=== PATIENT | female | born 1980 | race Caucasian/White ===

== ENCOUNTER 2023-04-03 13:11 | Outpatient (OUT) | payer BC, SELFPAY ==
--- NOTE | 2023-04-03 | XR_ITS ---
[address] [address] Patient Name: DELILAH MANCUSO MRN: [id number] date: 1980 Sex: F Assigned Patient Location: [facility] Current Patient Location: [facility] Accession/Order Number: [id number] Exam Date: 04/03/2023 13:25 Report Date: 04/03/2023 22:23 At the request of: DANIE AYERS Procedure: XR foot RT min 3V PROCEDURE: XR ankle RT min 3V, XR foot RT min 3V COMPARISON: 04/03/2023 HISTORY: RIGHT ANKLE PAIN FINDINGS: BONES:Mild hallux valgus. No acute fracture or dislocation. Mild enthesopathic spurring calcaneus. Partial pes planus. Plantar rotation of the talus SOFT TISSUES:Negative. No visible soft tissue swelling. EFFUSION:None visible. OTHER: Negative. XR/XR foot RT min 3V IMPRESSION: Degenerative changes with partial pes planus Electronically authenticated by: KARTIK LOPEZ Date: 04/03/2023 22:23
--- NOTE | 2023-04-03 | XR_ITS ---
[address] [address] Patient Name: DELILAH MANCUSO MRN: [id number] date: 1980 Sex: F Assigned Patient Location: [facility] Current Patient Location: [facility] Accession/Order Number: [id number] Exam Date: 04/03/2023 13:25 Report Date: 04/03/2023 22:23 At the request of: DANIE AYERS Procedure: XR ankle RT min 3V PROCEDURE: XR ankle RT min 3V, XR foot RT min 3V COMPARISON: 04/03/2023 HISTORY: RIGHT ANKLE PAIN FINDINGS: BONES:Mild hallux valgus. No acute fracture or dislocation. Mild enthesopathic spurring calcaneus. Partial pes planus. Plantar rotation of the talus SOFT TISSUES:Negative. No visible soft tissue swelling. EFFUSION:None visible. OTHER: Negative. XR/XR ankle RT min 3V IMPRESSION: Degenerative changes with partial pes planus Electronically authenticated by: KARTIK LOPEZ Date: 04/03/2023 22:23
== END 2023-04-03 13:12 | disposition home or self-care (01) ==
LOC: RAD 13:12
PROVIDERS: Visit Provider Podiatrist Foot & Ankle Surgery
DX: M25.571 Pain in right ankle and joints of right foot (principal); M79.671 Pain in right foot
CPT/HCPCS: 73610; 73630

== ENCOUNTER 2023-05-29 17:01 | Outpatient (OUT) | payer BC, SELFPAY ==
--- NOTE | 2023-05-29 | XR_ITS ---
The [address] [address] Patient Name: DELILAH MANCUSO MRN: [id number] date: 1980 Sex: F Assigned Patient Location: [facility] Current Patient Location: [facility] Accession/Order Number: [id number] Exam Date: 05/29/2023 13:35 Report Date: 05/29/2023 15:07 At the request of: DANIE AYERS Procedure: XR foot RT min 3V EXAM: XR ankle RT min 3V, XR foot RT min 3V - 05/29/2023 HISTORY: RIGHT ANKLE PAIN COMPARISON STUDY: Right ankle and right foot 04/03/2023. FINDINGS: Right ankle: AP, oblique and lateral views for 3 views obtained. XR/XR foot RT min 3V IMPRESSION: 1. Similar hypertrophic osseous change presumably related to remote trauma associated with the medial malleolus. The alignment is intact. 2. Mild multifocal arthritic changes involving tibiotalar and talonavicular articulations noted. Small calcaneal enthesophytes are identified. 3. No acute fracture or dislocation is noted. Right foot: Frontal, oblique and lateral views for 3 views obtained. IMPRESSION: 1. Stable hallux valgus deformity, bunion formation and arthritic changes of the first MTP articulation. 2. Pes planus deformity is noted. 3. No acute fracture or dislocation. Electronically authenticated by: CIELO DICKEY Date: 05/29/2023 15:07
--- NOTE | 2023-05-29 | XR_ITS ---
The [address] [address] Patient Name: DELILAH MANCUSO MRN: [id number] date: 1980 Sex: F Assigned Patient Location: [facility] Current Patient Location: [facility] Accession/Order Number: [id number] Exam Date: 05/29/2023 13:35 Report Date: 05/29/2023 15:07 At the request of: DANIE AYERS Procedure: XR ankle RT min 3V EXAM: XR ankle RT min 3V, XR foot RT min 3V - 05/29/2023 HISTORY: RIGHT ANKLE PAIN COMPARISON STUDY: Right ankle and right foot 04/03/2023. FINDINGS: Right ankle: AP, oblique and lateral views for 3 views obtained. XR/XR ankle RT min 3V IMPRESSION: 1. Similar hypertrophic osseous change presumably related to remote trauma associated with the medial malleolus. The alignment is intact. 2. Mild multifocal arthritic changes involving tibiotalar and talonavicular articulations noted. Small calcaneal enthesophytes are identified. 3. No acute fracture or dislocation is noted. Right foot: Frontal, oblique and lateral views for 3 views obtained. IMPRESSION: 1. Stable hallux valgus deformity, bunion formation and arthritic changes of the first MTP articulation. 2. Pes planus deformity is noted. 3. No acute fracture or dislocation. Electronically authenticated by: CIELO DICKEY Date: 05/29/2023 15:07
== END 2023-05-29 17:02 | disposition home or self-care (01) ==
LOC: RAD 17:01
PROVIDERS: Visit Provider Podiatrist Foot & Ankle Surgery
DX: M25.571 Pain in right ankle and joints of right foot (principal); M79.671 Pain in right foot; M20.11 Hallux valgus (acquired), right foot; M21.41 Flat foot [pes planus] (acquired), right foot
CPT/HCPCS: 73610; 73630

== ENCOUNTER 2023-06-12 09:57 | Outpatient (OUT) | payer BC, SELFPAY ==
--- NOTE | 2023-06-12 10:07 | ECG_ITS ---
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
--- NOTE | 2023-06-12 10:51 | P.GSHP_ITS ---
History of Present Illness History of Present Illness Chief complaint: valgus deformity right ankle Narrative: Patient presents for preadmission testing. Please see HPI from Dr. Walker dated 05/29/2023. Review of Systems ROS Narrative Please see ROS from Dr. Walker dated 05/29/2023. [facility] Medical History (Updated 06/12/23 @ 10:26 by Alyssia Goetz NP) Acquired valgus deformity of right ankle ?M21.071 - Valgus deformity, not elsewhere classified, right ankle (ICD-10) Acquired varus deformity of right ankle ?M21.171 - Varus deformity, not elsewhere classified, right ankle (ICD-10) Anemia ?D64.9 - Anemia, unspecified (ICD-10) Ankle contracture ?M24.573 - Contracture, unspecified ankle (ICD-10) Ankle pain ?M25.579 - Pain in unspecified ankle and joints of unspecified foot (ICD-10) COVID-19 ?U07.1 - COVID-19 (ICD-10) Diabetes ?E11.9 - Type 2 diabetes mellitus without complications (ICD-10) Foot pain ?M79.673 - Pain in unspecified foot (ICD-10) Hypertension ?I10 - Essential (primary) hypertension (ICD-10) Palpitations ?R00.2 - Palpitations (ICD-10) Pneumonia ?J18.9 - Pneumonia, unspecified organism (ICD-10) Posterior tibial tendinitis ?M76.829 - Posterior tibial tendinitis, unspecified leg (ICD-10) Seasonal allergies ?J30.2 - Other seasonal allergic rhinitis (ICD-10) Surgical History (Updated 06/12/23 @ 10:26 by Alyssia Goetz NP) History of hysterectomy ?Z90.710 - Acquired absence of both cervix and uterus (ICD-10) Family History (Updated 06/12/23 @ 10:26 by Alyssia Goetz NP) Other Family history of DVT Family history of breast cancer Family history of colon cancer Family history of diabetes mellitus Family history of hypertension Family history of myocardial infarction Family history of seizures Social History (Updated 06/12/23 @ 10:21 by Alyssia Goetz NP) Within the past year, how often did you have a drink containing alcohol: monthly or less Smoking status: Never smoker Non-prescribed substance use: denies use 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 Highest level of school completed/degree received: Master's degree Meds Home Medications and Allergies Home Medications Medication Instructions Recorded Confirmed Type empagliflozin 10 mg tablet 10 mg PO DAILY 06/12/23 06/12/23 History (Jardiance) lisinopril 20 mg tablet 20 mg PO DAILY 06/12/23 06/12/23 History loratadine 10 mg tablet (Claritin) 10 mg PO DAILY 06/12/23 06/12/23 History metformin 1,000 mg tablet 1,000 mg PO BID 06/12/23 06/12/23 History multivitamin (Daily Multi-Vitamin 1 tab PO DAILY 06/12/23 06/12/23 History tablet) Allergies Allergy/AdvReac Type Severity Reaction Status Date / Time amoxicillin Allergy Rash Verified 06/12/23 10:18 chlorine Allergy SOB Uncoded 06/12/23 10:18 levender oil Allergy SOB Uncoded 06/12/23 10:18 Exam Narrative Exam Narrative: Constitutional: Awake, alert, comfortable, well-appearing, nontoxic, interactive, vital signs as charted Head: Normocephalic, atraumatic Neck: Supple, normal appearance, normal range of motion, no meningeal signs, no lymphadenopathy Respiratory: No respiratory distress, breath sounds clear Cardiovascular: Regular rate and rhythm, strong and regular heart tones Psychiatric: Oriented ?3, normal affect Assessment and Plan Assessment and Plan (1) Acquired valgus deformity of right ankle: (2) Acquired varus deformity of right ankle: (3) Ankle contracture: (4) Ankle pain: (5) Foot pain: (6) Posterior tibial tendinitis: Plan Right foot reconstruction with osteotomies, soft tissue balancing, and bone graft as needed scheduled with Dr. Walker 06/27/2023.
[2023-06-12 10:53] LABS: Basophils Percent Auto 0.4 % (0.2-2.0); Eosinophils Absolute Auto 0.1 10^3/uL (0.0-0.7); Eosinophils Percent Auto 0.9 % (0.9-7.0); Hematocrit 41.8 % (36.0-48.0); Hemoglobin 13.8 g/dL (12.0-16.0); Immature Granulocytes Abs Auto 0.02 10^3/uL (0.00-0.03); Immature Granulocytes Pct Auto 0.2 % (0.0-0.5); Lymphocytes Absolute Auto 2.9 10^3/uL (1.2-3.8); Lymphocytes Percent Auto 29.6 % (20.5-60.0); Mean Corpuscular Volume 87.8 fL (81.0-99.0); Mean Platelet Volume 9.4 fL (9.5-13.5); Monocytes Absolute Auto 0.5 10^3/uL (0.3-0.8); Monocytes Percent Auto 4.8 % (1.7-12.0); Neutrophils Absolute Auto 6.4 10^3/uL (1.4-6.5); Neutrophils Percent Auto 64.1 % (43.0-75.0); Platelet Count 301 10^3/uL (150-450); Red Blood Count 4.76 10^6/uL (4.20-5.40); White Blood Count 9.9 10^3/uL (4.0-11.0)
[2023-06-12 10:59] LABS: Anion Gap 14.3; BUN Creatinine Ratio 22.4; Calcium 8.9 mg/dL (8.5-10.1); Carbon Dioxide 24.8 mmol/L (21.0-32.0); Chloride 102 mmol/L (98-107); Estimated GFR (African America >60 (>=60); Estimated GFR (Non-African Ame >60 (>=60); Glucose 140 mg/dL (74-106); Potassium 4.1 mmol/L (3.5-5.1); Sodium 137 mmol/L (136-145)
== END 2023-06-12 09:58 | disposition home or self-care (01) ==
LOC: PST 10:01
PROVIDERS: Nurse Practitioner; Visit Provider Podiatrist Foot & Ankle Surgery
DX: Z01.812 Encounter for preprocedural laboratory examination (principal); Z01.810 Encounter for preprocedural cardiovascular examination; M21.071 Valgus deformity, not elsewhere classified, right ankle; M21.171 Varus deformity, not elsewhere classified, right ankle
CPT/HCPCS: 36415; 80048; 85025; 93005; G0463

== ENCOUNTER 2023-06-27 06:06 | Day surgery (SDC) | payer BC, SELFPAY ==
[2023-06-12 10:49] VITALS: BP 140/83; PULSE 87; RESP 18; TEMP 36.6; O2SAT 97; BMI 41.3
[2023-06-27] VITALS (12 sets, daily range): BP systolic 83–140; BP diastolic 52–96; PULSE 90–109; RESP 13–20; TEMP 36.4–36.5; O2SAT 90–98; BMI 40.0
--- NOTE | 2023-06-27 | FL_ITS ---
[address] [address] Patient Name: DELILHA MANCUSO MRN: [id number] date: 1980 Sex: F Assigned Patient Location: [facility] Current Patient Location: [facility] Accession/Order Number: [id number] Exam Date: 06/27/2023 08:16 Report Date: 06/28/2023 14:46 At the request of: DANIE AYERS Procedure: FL fluoroscopy <1hr NON-READ EXAM: FL fluoroscopy <1hr NON-READ HISTORY: TECHNIQUE: FINDINGS: Please see Operative Report. Electronically authenticated by: RADIOLOGIST NO Date: 06/28/2023 14:46
[2023-06-27 06:28] LABS: Basophils Percent Auto 0.2 % (0.2-2.0); Eosinophils Percent Auto 0.3 % (0.9-7.0); Hematocrit 40.7 % (36.0-48.0); Hemoglobin 13.5 g/dL (12.0-16.0); Immature Granulocytes Abs Auto 0.02 10^3/uL (0.00-0.03); Immature Granulocytes Pct Auto 0.2 % (0.0-0.5); Lymphocytes Absolute Auto 1.6 10^3/uL (1.2-3.8); Lymphocytes Percent Auto 16.3 % (20.5-60.0); Mean Corpuscular HGB Conc 33.2 g/dL (29.9-35.2); Mean Corpuscular Hemoglobin 28.7 pg (26.7-34.0); Mean Corpuscular Volume 86.4 fL (81.0-99.0); Mean Platelet Volume 9.3 fL (9.5-13.5); Monocytes Absolute Auto 0.9 10^3/uL (0.3-0.8); Monocytes Percent Auto 9.3 % (1.7-12.0); Neutrophils Absolute Auto 7.2 10^3/uL (1.4-6.5); Neutrophils Percent Auto 73.7 % (43.0-75.0); Platelet Count 261 10^3/uL (150-450); Red Blood Count 4.71 10^6/uL (4.20-5.40); Red Cell Distribution Width 13.1 % (11.0-15.0); White Blood Count 9.8 10^3/uL (4.0-11.0)
[2023-06-27 06:40] LABS: Glucometer 153 mg/dL (74-106)
[2023-06-27] MEDS: LACTATED RINGER'S SOLUTION 1,000 ML 50 ML IV ×2 (06:48→08:47)
[2023-06-27] MEDS: CLINDAMYCIN PHOSPHATE/D5W 900 MG/50 ML PIGGYBACK 100 MG IV (07:34)
--- NOTE | 2023-06-27 07:46 | PC.NURSE ---
07- Final timeout completed. Patient placed on back. O2 cannula applied at 2l/min via nc and patient placed on monitor. 07- Right leg draped in sterile technique per Dr. Humphreys. Right saphenous block initiated. 0725- Saphenous block completed. 0726-Patient positioned on left hip. Sterile technique maintained to right leg. Right popliteal block initiated. 0730- Popliteal block completed. Patient tolerated it well. See posted vital signs.
--- NOTE | 2023-06-27 10:03 | P.ORON_ITS ---
Brief Operative Note Date of procedure: 06/27/23 Pre-op diagnosis: right posterior tibial tendon dysfunction, hindfoot valgus, forefoot varus Post-op diagnosis: other (right posterior tibial tendon dysfunction, hindfoot valgus, forefoot varus and equinus contracture) Procedure: PROCEDURES PERFORMED: right Orozco and medial displacement calcaneal osteotomies, cotton osteotomy, Kidner posterior tibial tendon advancement with tendon repair and excision of accessory ossicle, tendo Achilles lengthening, application of short leg splint and intraoperative fluoroscopy examination INTRAOPERATIVE FINDINGS: equinus contracture noted with the knee flexed and extended. hindfoot valgus and forefoot varus were flexible and associated joints had full range of motion. Posterior tibial tendon with intratendinous degeneration with chronic tears and accessory ossicle within the tendon. Navicular tuberosity was enlarged. Bone quality was within normal limits given patient's age and gender PROCEDURES IN DETAIL: Patient was identified in pre op and consent was reviewed. Correct side and site were identified and marked. Pre-op antibiotics were started. Patient was brought to OR suite and place on table in a supine position. General anesthesia was administered. Tourniquet applied. Operative extremity was prepped and draped in usual sterile fashion. Formal time-out was performed and the foot/ankle were exsanguinated and tourniquet inflated. Three stab incisions were placed over the mid substance of the Achilles tendon releasing the lateral half in the most proximal and distal stab incisions and medial half in the Central stab incision. Ankle joint dorsiflexion improved to ten degrees past neutral Fluoroscopy was used to identify the calcaneal cuboid joint and associated anatomy to help plan the incision and placement of the osteotomy. An oblique incision was placed over the peroneal tendons comminution sharp blunt dissection gained access to the peroneal tendons which were retracted out of the way. Dissection was performed to expose the sinus tarsi and the calcaneocuboid joint. Periosteum was reflected from the osteotomy site and retractors were used to help plan the osteotomy with the aid of fluoroscopy. A K wire was placed into the calcaneal cuboid joint. A vertical osteotomy was placed in the anterior portion of the calcaneus from lateral to medial between the anterior and middle STJ facets. The osteotomy was performed with a sagittal saw then a Hintermann distractor was used to distract the osteotomy while an osteotome was used to complete the osteotomy medially. Under fluoroscopy, the osteotomy was distracted allowing deformity to be fully corrected. Trial implants were used to determine the proper size. Then a 8 mm Orozco wedge was placed and distractor was removed. Surgical site was irrigated with copious sterile saline. C-arm was used to identify safe incision placement over the lateral calcaneus anterior to the Achilles and plantar fascial attachments. Sharp and blunt dissection to the lateral calcaneus was performed. Sural nerve was not visualized but protected. A saw was used to create an osteotomy in line with the incision and the osteotomy was finished with an osteotome on medial cortex. A lamina internet retailer was placed inside the osteotomy to stretch soft tissues. A 2 cm incision was placed over the posterior aspect of the calcaneus and two guidewires were drilled into the tuberosity but not across the osteotomy. The lamina internet retailer was removed and with the foot plantarflexed and the knee bent the tuberosity was translated medially. I held the tuberosity in the corrected position while my psychologist research assistant advanced the previously placed guidewires. Fluoroscopic guidance was then checked to ensure proper placement of the guidewires. Two 5.5mm headless compression screws were place over the wires. Guide wires were then removed. A shelf of overhanging bone at the osteotomy site was smoothed with a rongeur and rasp. hindfoot valgus was now produced as well as talar navicular joint under coverage however forefoot varus persisted Fluoroscopy was used to identify the medial cuneiform. A longitudinal incision medial to the extensor hallucis longus tendon was performed. Combination sharp and blunt dissection gained access to the midportion of the medial cuneiform. Care was taken to identify the proximal and distal articular surfaces. A saw was used to perform an osteotomy from dorsal to plantar. K wires were placed on each side and the osteotomy in a distractor was placed over the K wires. Distraction was performed until forefoot varus and reduced. The amount of distracted was measured with ruler and trials for Cotton wedges. A 7 mm Cotton wedge was placed into the osteotomy. Distractor and K wires were removed after confirmation of wedge placement on fluoroscopy. Incision was placed over the tarsal tunnel from the medial malleolus to the base of the medial cuneiform. Sharp and blunt dissection with all bleeders being coagulated gained access to the posterior tibial tendon. The posterior tibial tendon was detached from its attachment on the navicular. All nonviable or questionable tissue was excised for full tendon debridement this debridement included excision of an accessory ossicle which is passed the back table and sent as specimen. The tendon was then repaired and tubularized with a whipstitch and sized. A sagittal saw was used to remove any excess bone of the navicular tuberosity. Two 3.3 mm suture anchors were placed accordingly into the navicular. the sutures from the anchors were then used to reapproximate the posterior tibial tendon to its insertion on the navicular under slightly additional tension then physiologic. Plantar soft tissue attachments were preserved. the sutures were then tied and cut after fixation strength was tested. Surgical site was irrigated with copious sterile saline and the incision was closed in layers. A dry sterile dressing consisting of Xeroform on the incisions followed by 4 x 4 gauze, ABDs, and Kerlix were applied. Multiple layers of cast padding were then applied to ensure all bony prominences were well-padded. A plaster posterior splint was then applied which was held in place by Deuce wraps. Capillary refill time to all digits was evaluated and had appropriate response. POSTOPERATIVE PLAN: Discharge home under family's care Post op instructions provided verbally and written prescription(s) were placed in chart NWB operative foot/ankle x6 wks Follow-up in 1 week Implants: Medline 5.5 mm screws (x2) & suture anchors 3.3 mm (x2); [id number] Ernesto & Deshawn mock Anesthesia: regional and General-LMA Surgeon: Nahid Walker Sole Leather Cutting Machine Operator: Blue Lopez Estimated blood loss (mL): 10 Pathology: other (Navicular tuberosity & accessary ossicle) Condition: stable Disposition: PACU Preoperative Details Reason for procedure: patient is a 43-year-old female with worsening pain and dysfunction associated with her right foot for the last seven years. She attempted nonsurgical treatment with physical therapy, bracing, cam boot, shoe and activity modification as well as NSAIDs. Despite nonsurgical treatment over the last year her pain is likely gotten worse. Discussed surgical options and the potential risks and benefits associated. Patient elected to undergo right foot reconstruction
--- NOTE | 2023-06-27 10:38 | XR_ITS ---
The [address] [address] Patient Name: DELILAH MANCUSO MRN: [id number] date: 1980 Sex: F Assigned Patient Location: [facility] Current Patient Location: Accession/Order Number: [id number] Exam Date: 06/27/2023 10:41 Report Date: 06/28/2023 07:03 At the request of: RANDELL CARR Procedure: XR foot RT min 3V PROCEDURE: XR foot RT min 3V HISTORY: postop xr pacu COMPARISON: XR foot right 05/29/2023 FINDINGS: BONES:Anterior and posterior calcaneal osteotomy and repair. Osteotomy and wedge placement within the medial cuneiform. No appreciable hardware fracture or bone fracture. SOFT TISSUES:Expected postsurgical findings. Images were obtained to cast material. EFFUSION:None visible. OTHER: Negative. XR/XR foot RT min 3V IMPRESSION: 1. Postoperative changes. No suspicious findings. Electronically authenticated by: MILES WILKINS Date: 06/28/2023 07:03
[2023-06-27 10:54] LABS: Glucometer 237 mg/dL (74-106)
[2023-06-27] MEDS: PROMETHAZINE HCL 25 MG/ML VIAL 12.5 MG IV (11:25)
--- NOTE | 2023-06-27 11:39 | PC.NURSE ---
PATIENT WAS NAUSEATED UPON ARRIVAL TO POST OP 2 DR MONTILLA GAVE IV ORDER FOR 12.5 MG PHENERGAN AND STATED IT WAS OK TO MOVE INTO PHASE 2 AND ADMINISTER NAUSEA MEDICATION. AT THIS TIME PATIENT IS RESTING COMFORTABLE AND DENIES NAUSEA
--- NOTE | 2023-06-27 12:28 | PC.NURSE ---
pATIENT WAS UP AND URINATED AT THIS TIME
== END 2023-06-27 13:05 | disposition home or self-care (01) ==
PROVIDERS: Visit Provider Podiatrist Foot & Ankle Surgery
PROC: (CPT 27691; principal; 2023-06-27 07:30)
DX: M21.071 Valgus deformity, not elsewhere classified, right ankle (principal); M21.171 Varus deformity, not elsewhere classified, right ankle; E11.9 Type 2 diabetes mellitus without complications; D64.9 Anemia, unspecified; I10 Essential (primary) hypertension; Z87.01 Personal history of pneumonia (recurrent); Z86.16 Personal history of COVID-19; Z90.710 Acquired absence of both cervix and uterus; Z79.84 Long term (current) use of oral hypoglycemic drugs; E78.5 Hyperlipidemia, unspecified; M24.571 Contracture, right ankle; M76.821 Posterior tibial tendinitis, right leg; S86.111S Strain of other muscle(s) and tendon(s) of posterior muscle group at lower leg level, right leg, sequela; M66.871 Spontaneous rupture of other tendons, right ankle and foot
CPT/HCPCS: 27691; 28300; 28304; 36415; 64445; 64450; 73630; 76000; 76942; 82948; 85025; 88304; 88311; C1713; J1170; J2704

== ENCOUNTER 2023-07-17 10:59 | Outpatient (OUT) | payer BC, SELFPAY ==
--- NOTE | 2023-07-17 | XR_ITS ---
The [address] [address] Patient Name: DELILAH MANCUSO MRN: [id number] date: 1980 Sex: F Assigned Patient Location: [facility] Current Patient Location: Accession/Order Number: [id number] Exam Date: 07/17/2023 11:01 Report Date: 07/19/2023 10:25 At the request of: DANIE AYERS Procedure: XR foot RT min 3V PROCEDURE: XR foot RT min 3V HISTORY: RIGHT FOOT PAIN COMPARISON: XR foot right 06/27/2023 FINDINGS: BONES:Anterior and posterior calcaneal osteotomy and repair. Osteotomy and wedge placement within the medial cuneiform. No hardware fracture or loosening. No bone fracture dislocation. SOFT TISSUES:Mild soft tissue swelling. Cast material has been removed. EFFUSION:None visible. OTHER: Negative. XR/XR foot RT min 3V IMPRESSION: 1. Stable surgical changes without evidence of hardware failure or change in alignment. Electronically authenticated by: MILES WILKINS Date: 07/19/2023 10:25
== END 2023-07-17 11:00 | disposition home or self-care (01) ==
LOC: RAD 11:00
PROVIDERS: Visit Provider Podiatrist Foot & Ankle Surgery
DX: M79.671 Pain in right foot (principal); M25.474 Effusion, right foot
CPT/HCPCS: 73630

== ENCOUNTER 2023-07-26 22:21 | Emergency (ER) | payer BC, SELFPAY ==
[2023-07-26 22:26] VITALS: BP 153/93; PULSE 106; RESP 18; TEMP 37; O2SAT 98; BMI 38.9
--- NOTE | 2023-07-26 22:51 | ED_ITS ---
HPI - Skin/Abscess/Foreign Bdy General Chief complaint: Skin/Abscess/Foreign Body Stated complaint: post op complication Time Seen by Provider: 07/26/23 22:33 Source: patient Mode of arrival: Wheelchair Limitations: no limitations History of Present Illness HPI narrative: about one month ago surgery to right ankle and foot/heel. States was seen by Podiatry this past week and placed on Keflex. Has open wound at heel that she is concerned about. States the wound was black and now it is no longer black. Has pain but not increasing. States there is some drainage. No fever or swelling Related Data Home Medications Medication Instructions Recorded Confirmed empagliflozin 10 mg tablet 10 mg PO DAILY 06/12/23 06/27/23 (Jardiance) lisinopril 20 mg tablet 20 mg PO DAILY 06/12/23 06/27/23 loratadine 10 mg tablet (Claritin) 10 mg PO DAILY 06/12/23 06/27/23 metformin 1,000 mg tablet 1,000 mg PO BID 06/12/23 06/27/23 multivitamin (Daily Multi-Vitamin 1 tab PO DAILY 06/12/23 06/27/23 tablet) Previous Rx's Medication Instructions Recorded aspirin 81 mg tablet,delayed 81 mg PO BID 30 days #60 tabs 06/27/23 release (Adult Low Dose Aspirin) cholecalciferol (vitamin D3) 125 125 mcg PO DAILY 90 days #90 caps 06/27/23 mcg (5,000 unit) capsule doxycycline hyclate 50 mg capsule 50 mg PO BID 7 days #14 caps 06/27/23 ondansetron 4 mg disintegrating 4 mg PO Q8H PRN nausea and 06/27/23 tablet vomiting 5 days #15 tabs oxycodone-acetaminophen 5 mg-325 1 tab PO Q6H PRN pain 7 days #28 06/27/23 mg tablet (Percocet) tabs sennosides 8.6 mg tablet (Senna 8.6 mg PO DAILY PRN constipation 7 06/27/23 Laxative) days #7 tabs tizanidine 2 mg tablet 2 mg PO TID PRN muscle spasticity 06/27/23 7 days #21 tabs Allergies Allergy/AdvReac Type Severity Reaction Status Date / Time amoxicillin Allergy Rash Verified 06/12/23 10:18 chlorine Allergy SOB Uncoded 10/25/23 10:18 levender oil Allergy SOB Uncoded 06/12/23 10:18 Review of Systems ROS Status of ROS 10 or more systems reviewed and unremark able except as noted in history and below [facility] Medical History (Updated 07/26/23 @ 23:42 by Yong Lira MD) Anemia ?D64.9 - Anemia, unspecified (ICD-10) COVID-19 ?U07.1 - COVID-19 (ICD-10) Pneumonia ?J18.9 - Pneumonia, unspecified organism (ICD-10) Seasonal allergies ?J30.2 - Other seasonal allergic rhinitis (ICD-10) Hypertension ?I10 - Essential (primary) hypertension (ICD-10) Palpitations ?R00.2 - Palpitations (ICD-10) Diabetes ?E11.9 - Type 2 diabetes mellitus without complications (ICD-10) Foot pain ?M79.673 - Pain in unspecified foot (ICD-10) Posterior tibial tendinitis ?M76.829 - Posterior tibial tendinitis, unspecified leg (ICD-10) Ankle contracture ?M24.573 - Contracture, unspecified ankle (ICD-10) Ankle pain ?M25.579 - Pain in unspecified ankle and joints of unspecified foot (ICD-10) Acquired varus deformity of right ankle ?M21.171 - Varus deformity, not elsewhere classified, right ankle (ICD-10) Acquired valgus deformity of right ankle ?M21.071 - Valgus deformity, not elsewhere classified, right ankle (ICD-10) Surgical History (Updated 06/12/23 @ 10:26 by Alyssia Goetz NP) History of hysterectomy ?Z90.710 - Acquired absence of both cervix and uterus (ICD-10) Family History (Updated 06/12/23 @ 10:26 by Alyssia Goetz NP) Other Family history of DVT Family history of breast cancer Family history of colon cancer Family history of diabetes mellitus Family history of hypertension Family history of myocardial infarction Family history of seizures Social History (Updated 06/12/23 @ 10:21 by Alyssia Goetz NP) Within the past year, how often did you have a drink containing alcohol: monthly or less Smoking status: Never smoker Non-prescribed substance use: denies use 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 Highest level of school completed/degree received: Master's degree Exam Constitutional Vital Signs, click to edit/add: Last Vital Signs Temp 98.6 F 07/26/23 22:26 Pulse 106 H 07/26/23 22:26 Resp 18 07/26/23 22:26 BP 153/93 H 07/26/23 22:26 Pulse Ox 98 07/26/23 22:26 O2 Del Method Room Air 07/26/23 22:26 Common normals: no apparent distress, oriented x3, healthy appearing, alert and well nourished Eye Common normals: EOMs intact bilaterally and conjunctivae normal Respiratory Common normals: normal respiratory effort, no retractions, no use of accessory muscles and clear to auscultation bilaterally Cardio Common normals: regular rate, regular rhythm, S1 normal heart sound and S2 normal heart sound Extremity Other: right foot with a couple incisions that are dry and closed. the posterior aspect of the heel has an open incision. On inspection there is no drainage. Tissue appears normal and not inflamed. mild tenderness. No erythema or swelling. Neuro Common normals: oriented x3, CN's II-XII intact bilaterally, moves all extremities and no focal motor deficits Psych Appearance: grossly normal Course Vital Signs Vital signs: Vital Signs Temperature 98.6 F 07/26/23 22:26 Pulse Rate 106 H 07/26/23 22:26 Respiratory Rate 18 07/26/23 22:26 Blood Pressure 153/93 H 07/26/23 22:26 Pulse Oximetry 98 07/26/23 22:26 Oxygen Delivery Method Room Air 07/26/23 22:26 Temperature 98.6 F 07/26/23 22:26 Pulse Rate 106 H 07/26/23 22:26 Respiratory Rate 18 07/26/23 22:26 Blood Pressure 153/93 H 07/26/23 22:26 Pulse Oximetry 98 07/26/23 22:26 Oxygen Delivery Method Room Air 07/26/23 22:26 MDM - Skin/Abscess/Foreign Bdy MDM Narrative Medical decision making narrative: patient is one month s/p surgery right ankle and foot. complicated by post op infection and started on Keflex by her surgeon this past week. Patient concerned about the foot because she is diabetic. The open wound of her heel does not look infected at this time. There is no drainage while here in the department. Tissue appears viable. labs with normal WBC and CRP. Mild elevation of sed rate. She is afebrile. Patient reassured and advised to follow up with her surgeon next week as planned Lab Data Labs: Lab Results 07/26/23 Range/Units 22:54 WBC 9.8 (4.0-11.0) 10^3/uL RBC 4.76 (4.20-5.40) 10^6/uL Hgb 13.8 (12.0-16.0) g/dL Hct 42.6 (36.0-48.0) % MCV 89.5 (81.0-99.0) fL MCH 29.0 (26.7-34.0) pg MCHC 32.4 (29.9-35.2) g/dL RDW 13.6 (11.0-15.0) % Plt Count 311 (150-450) 10^3/uL MPV 9.4 L (9.5-13.5) fL Neut % (Auto) 52.7 (43.0-75.0) % Lymph % (Auto) 36.7 (20.5-60.0) % Hayes % (Auto) 7.7 (1.7-12.0) % Eos % (Auto) 2.5 (0.9-7.0) % Baso % (Auto) 0.3 (0.2-2.0) % Neut # (Auto) 5.2 (1.4-6.5) 10^3/uL Lymph # (Auto) 3.6 (1.2-3.8) 10^3/uL Hayes # (Auto) 0.8 (0.3-0.8) 10^3/uL Eos # (Auto) 0.3 (0.0-0.7) 10^3/uL Baso # (Auto) 0.0 (0.0-0.1) 10^3/uL Abs Immat Gran (auto) 0.01 (0.00-0.03) 10^3/uL Imm/Tot Granulo (auto) 0.1 (0.0-0.5) % ESR 38 H (<=20) mm/hr Sodium 138 (136-145) mmol/L Potassium 4.2 (3.5-5.1) mmol/L Chloride 102 (98-107) mmol/L Carbon Dioxide 24.4 (21.0-32.0) mmol/L Anion Gap 15.8 BUN 11.0 (7.0-18.0) mg/dL Creatinine 0.81 (0.55-1.02) mg/dL Est GFR ( Amer) >60 (>=60) Est GFR (Non-Af Amer) >60 (>=60) BUN/Creatinine Ratio 13.6 Glucose 160 H (74-106) mg/dL Calcium 9.2 (8.5-10.1) mg/dL C-Reactive Protein <0.50 (<=0.50) mg/dL Discharge Plan Discharge Chief Complaint: Skin/Abscess/Foreign Body Clinical Impression: Wound, open, foot Patient Disposition: Home, Self-Care Prescriptions / Home Meds: No Action Jardiance 10 mg tablet 10 mg PO DAILY lisinopril 20 mg tablet 20 mg PO DAILY metformin 1,000 mg tablet 1,000 mg PO BID multivitamin [Daily Multi-Vitamin] Tablet 1 tab PO DAILY loratadine [Claritin] 10 mg tablet 10 mg PO DAILY doxycycline hyclate 50 mg capsule 50 mg PO BID 7 Days Qty: 14 0RF aspirin [Adult Low Dose Aspirin] 81 mg tablet,delayed release (DR/EC) 81 mg PO BID 30 Days Qty: 60 0RF cholecalciferol (vitamin D3) 125 mcg (5,000 unit) capsule 125 mcg PO DAILY 90 Days Qty: 90 0RF oxycodone-acetaminophen [Percocet] 5-325 mg tablet 1 tab PO Q6H PRN (Reason: pain) 7 Days Qty: 28 0RF ondansetron 4 mg tablet,disintegrating 4 mg PO Q8H PRN (Reason: nausea and vomiting) 5 Days Qty: 15 0RF sennosides [Senna Laxative] 8.6 mg tablet 8.6 mg PO DAILY PRN (Reason: constipation) 7 Days Qty: 7 0RF tizanidine 2 mg tablet 2 mg PO TID PRN (Reason: muscle spasticity) 7 Days Qty: 21 0RF Instructions: Acute Wounds (ED) Additional Instructions: follow up with podiatry Saturday as planned Stand Alone Forms: Portal Instructions Referrals: Physician,Non-Staff, MD [Primary Care Provider] - 1 week
[2023-07-26 23:08] LABS: Basophils Percent Auto 0.3 % (0.2-2.0); Eosinophils Percent Auto 2.5 % (0.9-7.0); Hematocrit 42.6 % (36.0-48.0); Hemoglobin 13.8 g/dL (12.0-16.0); Lymphocytes Percent Auto 36.7 % (20.5-60.0); Mean Corpuscular HGB Conc 32.4 g/dL (29.9-35.2); Mean Corpuscular Volume 89.5 fL (81.0-99.0); Mean Platelet Volume 9.4 fL (9.5-13.5); Monocytes Percent Auto 7.7 % (1.7-12.0); Neutrophils Percent Auto 52.7 % (43.0-75.0); Platelet Count 311 10^3/uL (150-450); Red Blood Count 4.76 10^6/uL (4.20-5.40); Red Cell Distribution Width 13.6 % (11.0-15.0); White Blood Count 9.8 10^3/uL (4.0-11.0)
[2023-07-26 23:09] LABS: Eosinophils Absolute Auto 0.3 10^3/uL (0.0-0.7); Immature Granulocytes Abs Auto 0.01 10^3/uL (0.00-0.03); Immature Granulocytes Pct Auto 0.1 % (0.0-0.5); Lymphocytes Absolute Auto 3.6 10^3/uL (1.2-3.8); Monocytes Absolute Auto 0.8 10^3/uL (0.3-0.8); Neutrophils Absolute Auto 5.2 10^3/uL (1.4-6.5)
[2023-07-26 23:12] LABS: Erythrocyte Sedimentation Rate 38 mm/hr (<=20)
[2023-07-26 23:17] LABS: Anion Gap 15.8; BUN Creatinine Ratio 13.6; Calcium 9.2 mg/dL (8.5-10.1); Carbon Dioxide 24.4 mmol/L (21.0-32.0); Chloride 102 mmol/L (98-107); Estimated GFR (African America >60 (>=60); Estimated GFR (Non-African Ame >60 (>=60); Glucose 160 mg/dL (74-106); Potassium 4.2 mmol/L (3.5-5.1); Sodium 138 mmol/L (136-145)
[2023-07-26 23:28] LABS: C Reactive Protein <0.50 mg/dL (<=0.50)
== END 2023-07-27 00:10 | disposition home or self-care (01) ==
PROVIDERS: Emergency Provider Internal Medicine
DX: S91.301A Unspecified open wound, right foot, initial encounter (principal); E11.9 Type 2 diabetes mellitus without complications; I10 Essential (primary) hypertension; Z87.01 Personal history of pneumonia (recurrent); Z86.16 Personal history of COVID-19; Z79.84 Long term (current) use of oral hypoglycemic drugs; Z79.899 Other long term (current) drug therapy; Z98.890 Other specified postprocedural states
CPT/HCPCS: 36415; 80048; 85025; 85652; 86140; 99283

== ENCOUNTER 2023-08-14 10:43 | Outpatient (OUT) | payer BC, SELFPAY ==
--- NOTE | 2023-08-14 | XR_ITS ---
[place] [id number] Patient Name: DELILAH MANCUSO MRN: [id number] date: 1980 Sex: F Assigned Patient Location: [facility] Current Patient Location: [facility] Accession/Order Number: [id number] Exam Date: 08/14/2023 10:50 Report Date: 08/15/2023 22:11 At the request of: DANIE AYERS Procedure: XR foot RT min 3V EXAM: XR foot RT min 3V HISTORY: RIGHT FOOT PAIN COMPARISON: 07/17/2023 FINDINGS/IMPRESSION: 1. No acute fracture or dislocation 2. Osteotomy and screw fixation of the posterior aspect of the calcaneus. Osteotomy and wedge placement of the anterior calcaneus. Osteotomy and wedge placement of the cuboid. No apparent hardware complication. Similar appearance as compared to the prior exam from 07/17/2023. 3. No significant joint degeneration. 4. No ankle joint effusion. Electronically authenticated by: KHALIDA BERNARD Date: 08/15/2023 22:11
== END 2023-08-14 10:44 | disposition home or self-care (01) ==
LOC: RAD 10:43
PROVIDERS: Visit Provider Podiatrist Foot & Ankle Surgery
DX: M25.571 Pain in right ankle and joints of right foot (principal)
CPT/HCPCS: 73630

== ENCOUNTER 2023-08-15 14:14 | Outpatient (OUT) | payer BC, SELFPAY ==
--- OUTSIDE RECORDS SUMMARY | 2023-08-15 14:25 | XMS_ITS | CCD ---
Author Name Unknown Address [id number] [place] [address] Organization [facility] Care Team Providers Care Bowl Turner Name Role Phone BACK, SHYAM Unavailable Unavailable BACK, SHYAM Unavailable Unavailable Back, Shyam Primary Care Provider [phone] Back Shyam RODRIGUEZ Primary Care Provider MD RAMIREZ GRIMALDOIS Emergency Provider MD JÚNIOR VALADEZ Admit Provider MD JÚNIOR VALADEZ Attending Provider Back Shyam RODRIGUEZ Primary Care Provider Back Shyam RODRIGUEZ Primary Care Provider Back Shyam RODRIGUEZ Primary Care Provider Back Shyam RODRIGUEZ Primary Care Provider DANIE AYERS Referring Unavailable BACK, SHYAM Primary Care Unavailable DANIE AYERS Referring Unavailable BACK, SHYAM Primary Care Unavailable BACK, SHYAM Referring Unavailable BACK, SHYAM Primary Care Unavailable DANIE AYERS Referring Unavailable BACK, SHYAM Primary Care Unavailable DANIE AYERS Referring Unavailable BACK, SHYAM Primary Care Unavailable DANIE AYERS Referring Unavailable BACK, SHYAM Primary Care Unavailable DANIE AYERS Referring Unavailable BACK, SHYAM Primary Care Unavailable DANIE AYERS Referring Unavailable BACK, SHYAM Primary Care Unavailable KEO VALDEZ Attending Unavailabl e KEO VALDEZ Referring Unavailabl e BACK, SHYAM Primary Care Unavailable DANIE AYERS Referring Unavailable BACK, SHYAM Primary Care Unavailable BACK, SHYAM Referring Unavailable BACK, SHYAM Primary Care Unavailable DANIE AYERS Referring Unavailable BACK, SHYAM Primary Care Unavailable DANIE AYERS Referring Unavailable BACK, SHYAM Primary Care Unavailable DANIE AYERS Referring Unavailable BACK, SHYAM Primary Care Unavailable DANIE AYERS Referring Unavailable BACK, SHYAM Primary Care Unavailable DANIE AYERS Referring Unavailable BACK, SHYAM Primary Care Unavailable DEBRADANIE CHIU Referring Unavailable BACK, SHYAM Primary Care Unavailable Allergies Allergy Classification Reported Allergen(s) Allergy Type Date of Onset Reaction(s) Facility (20 sources) Amoxicillin Drug Allergy 4 Nausea Only [place], [place] (15 sources) Chlorine Propensity to adverse reactions to drug 3 Hives [place], [place] (11 sources) Lavender Oil Propensity to adverse reactions to drug 1 Shortness Of Breath [facility] Medications Current Medications Medication Drug Class(es) Dates Sig (Normalized) Sig (Original) [id number] 200 actuat albuterol 0.09 mg/actuat metered dose inhaler (15 sources) beta2-Adrenergic Agonist Start: 10-23-2019 take 2 puff(s) by inhalation every six hours as needed for wheezing albuterol sulfate HFA (VENTOLIN HFA) 108 (90 Base) MCG/ACT inhaler Inhale 2 puffs into the lungs every 6 hours as needed for Wheezing 1 Inhaler 3 10/23/2019 Active Start: 10-23-2019 take 2 puff(s) by in halation every six hours as needed for wheezing albuterol sulfate HFA (VENTOLIN HFA) 108 (90 Base) MCG/ACT inhaler Inhale 2 puffs into the lungs every 6 hours as needed for Wheezing 1 Inhaler 3 10/23/2019 Active ascorbic acid 500 mg oral tablet (8 sources) Vitamin C Start: 04-27-2021 take 1 tablet by mouth once daily Ascorbic Acid (Vitamin C) 500 MG Tablet Active 500 MG PO DAILY April 27, 2021 11:59am aspirin 325 mg oral tablet (8 sources) Platelet Aggregation Inhibitor, Nonsteroidal Anti-inflammatory Drug Start: 04-27-2021 take 325 mg by mouth once daily Aspirin Active 325 MG PO DAILY April 27, 2021 11:58am azithromycin 250 mg oral tablet (1 source) Macrolide Antimicrobial Start: 04-14-2021 End: 04-19-2021 azithromycin (ZITHROMAX) 250 MG tablet Indications: Bronchitis Take 1 tablet by mouth See Admin Instructions for 5 days 500mg on day 1 followed by 250mg on days 2 - 5 6 tablet 0 04/14/2021 04/19/2021 Active bisoprolol fumarate 2.5 mg / hydroCHLOROthiazide 6.25 mg oral tablet (14 sources) Thiazide Diuretic, beta-Adrenergic Yandel Start: 10-16-2021 bisoprolol-hydroC HLOROthiazide (ZIAC) 2.5-6.25 MG per tablet Indications: Benign essential HTN TAKE 1 TABLET DAILY 90 tablet 3 10/16/2021 Active Start: 04-17-2021 Bisoprolol/Hyd rochlorothiazide (Bisoprolol-Hctz 2.5-6.25 Mg Tb) 1 EACH Tablet Active 1 TAB PO DAILY April 23, 2021 12:23pm Start: 11-09-2020 bisoprolol-hyd roCHLOROthiazide (ZIAC) 2.5-6.25 MG per tablet Indications: Benign essential HTN TAKE 1 TABLET DAILY 90 tablet 1 11/09/2020 Active Start: 08-17-2019 bisoprolol-hyd rochlorothiazide (ZIAC) 2.5-6.25 MG per tablet Indications: Benign essential HTN TAKE 1 TABLET DAILY 90 tablet 4 08/17/2019 Active cholecalciferol 0.025 mg oral tablet (7 sources) Vitamin D Start: 04-27-2021 take 1 tablet by mouth once daily Cholecalciferol (Vitamin D3) 1,000 UNIT Tablet Active 1000 UNIT PO DAILY April 27, 2021 12:00pm dexamethasone 6 mg oral tablet (7 sources) Corticosteroid Start: 04-27-2021 take 1 tablet by mouth once daily Dexamethasone (Decadron) 6 MG Tablet Active 6 MG PO DAILY 12 21April 27, 2021 11:57am dextromethorphan hydrobromide 15 mg / guaiFENesin 400 mg / pseudoephedrine hydrochloride 60 mg oral tablet (7 sources) alpha-Adrenergic Agonist, Uncompetitive D-qowrij-H-aspartat e Receptor Antagonist, Sigma-1 Agonist Start: 04-23-2021 Guaifenesin/Dm/Pseu doephedrine (Capmist Dm Tablet) 1 EACH Tablet Active 1 TAB PO NEEDED April 23, 2021 12:23pm empagliflozin 10 mg oral tablet (20 sources) Sodium-Glucose Cotransporter 2 Inhibitor Start: 2023 JARDIANCE 10 MG tablet Indications: Uncontrolled type 2 diabetes mellitus with hyperglycemia (HCC) TAKE 1 TABLET DAILY 90 tablet 1 2023 Active Start: 10-29-2022 JARDIANCE 10 M G tablet Indications: Uncontrolled type 2 diabetes mellitus with hyperglycemia (HCC) TAKE 1 TABLET DAILY 90 tablet 1 10/29/2022 Active Start: 05-01-2022 JARDIANCE 10 M G tablet Indications: Uncontrolled type 2 diabetes mellitus with hyperglycemia (HCC) TAKE 1 TABLET DAILY 90 tablet 1 05/01/2022 Active Start: 11-20-2021 take 1 tablet by pam th once daily empagliflozin (JARDIANCE) 10 MG tablet Indications: Uncontrolled type 2 diabetes mellitus with hyperglycemia (HCC) Take 1 tablet by mouth daily 30 tablet 0 11/20/2021 Active Start: 03-27-2021 take 1 tablet by pam th once daily empagliflozin (JARDIANCE) 10 MG tablet Indications: Uncontrolled type 2 diabetes mellitus with hyperglycemia (HCC) Take 1 tablet by mouth daily 30 tablet 5 03/27/2021 Active Ethinyl Estradiol / Ferrous fumarate / Norethindrone (1 source) Estrogen Start: 05-21-2018 MICROGESTIN FE 1.5/30 1.5-30 MG-MCG tablet 1 ml ketorolac tromethamine 15 mg/ml cartridge (3 sources) Nonsteroidal Anti-inflammatory Drug, Cyclooxygenase Inhibitor Start: 01-01-2022 ketorolac (TORADOL) injection 15 mg Start: 01-01-2022 take 1 tablet by pam th every eight hours as needed for pain ketorolac (TORADOL) 10 MG tablet Take 1 tablet by mouth every 8 hours as needed for Pain 15 tablet 0 01/01/2022 Active levoFLOXacin 500 mg oral tablet (7 sources) Quinolone Antimicrobial Start: 04-27-2021 take 1 tablet by mouth once daily Levofloxacin (Levaquin) 500 MG Tablet Active 500 MG PO DAILY 4 April 27, 2021 11:55am lisinopril 20 mg oral tablet (20 sources) Angiotensin Converting Enzyme Inhibitor Start: 04-08-2023 lisinopril (PRINIVIL;ZESTRIL) 20 MG tablet Indications: Benign essential HTN TAKE 1 TABLET DAILY 90 tablet 3 04/08/2023 Active Start: 11-20-2021 take 1 tablet by pam th once daily lisinopril (PRINIVIL;ZESTRIL) 20 MG tablet Indications: Benign essential HTN Take 1 tablet by mouth daily 90 tablet 1 11/20/2021 Active Start: 04-17-2021 lisinopril (CO INIVIL;ZESTRIL) 20 MG tablet Indications: Benign essential HTN TAKE 1 TABLET DAILY 90 tablet 1 04/17/2021 Active Start: 11-09-2020 lisinopril (CO INIVIL;ZESTRIL) 20 MG tablet Indications: Benign essential HTN TAKE 1 TABLET DAILY 90 tablet 1 11/09/2020 Active Start: 08-17-2019 lisinopril (CO INIVIL;ZESTRIL) 20 MG tablet Indications: Benign essential HTN TAKE 1 TABLET DAILY 90 tablet 4 08/17/2019 Active Loratadine (15 sources) Loratadine (CLAR ITIN PO) Take by mouth daily. 0 Active metFORMIN hydrochloride 1000 mg oral tablet (20 sources) Biguanide Start: 11-15-2022 metFORMIN (GLU COPHAGE) 1000 MG tablet Indications: Controlled type 2 diabetes mellitus without complication, without long-term current use of insulin (HCC) TAKE 1 TABLET TWICE A DAY WITH MEALS 180 tablet 1 11/15/2022 Active Start: 05-21-2022 metFORMIN (GLU COPHAGE) 1000 MG tablet Indications: Controlled type 2 diabetes mellitus without complication, without long-term current use of insulin (HCC) TAKE 1 TABLET TWICE A DAY WITH MEALS 180 tablet 1 05/21/2022 Active Start: 11-20-2021 metFORMIN (GLU COPHAGE) 1000 MG tablet Indications: Controlled type 2 diabetes mellitus without complication, without long-term current use of insulin (HCC) TAKE 1 TABLET TWICE A DAY WITH MEALS 180 tablet 1 11/20/2021 Active Start: 05-30-2020 metFORMIN (GLU COPHAGE) 1000 MG tablet Indications: Controlled type 2 diabetes mellitus without complication, without long-term current use of insulin (HCC) TAKE 1 TABLET TWICE A DAY WITH MEALS 180 tablet 1 05/25/2021 Active Start: 11-24-2019 metFORMIN (GLU COPHAGE) 1000 MG tablet Indications: Controlled type 2 diabetes mellitus without complication, without long-term current use of insulin (HCC) TAKE 1 TABLET TWICE A DAY WITH MEALS 180 tablet 1 11/24/2019 Active Multiple Vitamin (MULTI-VITAMIN PO) (15 sources) Multiple Vitamin (MULTI-VITAMIN PO) Take by mouth daily. 0 Active Multivitamin/Iron/Folic Acid (Centrum Complete Multivit Tab) 1 EACH Tablet (7 sources) Start: 04-27-20 take 1 tablet by mouth once daily Multivitamin/Iron/Foli c Acid (Centrum Complete Multivit Tab) 1 EACH Tablet Active 1 EACH PO DAILY April 27, 2021 11:58am ondansetron 4 mg oral tablet (2 sources) Serotonin-3 Receptor Antagonist Start: 01-02-20 End: 01-07-20 take 1 tablet by mouth every eight hours as needed for nausea ondansetron (ZOFRAN) 4 MG tablet Take 1 tablet by mouth every 8 hours as needed for Nausea or Vomiting 12 tablet 0 01/01/2022 01/06/2022 Active Start: 01-01-2022 End: 01-01-2022 ondansetron (ZOFRAN) injecti on 4 mg VITAMIN D PO (1 source) VITAMIN D PO Gus e by mouth 0 Active Completed/Discontinued Medications Medication Drug Class(es) Dates Sig (Normalized) Sig (Original) iopamidol (ISOVUE-370) 76 % injection 75 mL (1 source) Start: 01-01-2022 End: 01-01-2022 iopamidol (ISOVUE-370) 76 % injection 75 mL 50 ml sodium chloride 9 mg/ml injection (2 sources) Start: 04-14-2022 End: 04-14-2022 0.9 % sodium chloride bolus Start: 01-01-2022 End: 01-01-2022 0.9 % sodium chloride bolus Problems Active Problems Problem Classification Problem Date Documented Da te Episodic/Chronic Abdominal pain (1 source) Lower abdominal pain; Translations: [Lower abdominal pain, unspecified] Episodic Allergic reactions (1 source) Eczema of face; Translations: [Eczema of face] 04-09-2012 Chronic Allergic reactions (14 sources) Facial eczema; Translations: [Facial eczema] 04-09-2012 Episodic Cardiac dysrhythmias (1 source) Palpitations; Translations: [Palpitations] Episodic Diabetes mellitus with complications (20 sources) Type II diabetes mellitus uncontrolled; Translations: [Type 2 diabetes mellitus with hyperglycemia] Onset: 12-20-2014 Resolved: 08-23-2022 05-03-2020 Chronic Diabetes mellitus without complication (9 sources) Type 2 diabetes mellitus without complications; Translations: [Type 2 diabetes mellitus] Onset: 12-20-2014 Resolved: 12-22-2015 12-22-2015 Chronic Disorders of lipid metabolism (20 sources) Mixed hyperlipidemia; Translations: [Mixed hyperlipidemia] Onset: 11-19-2013 11-19-2013 Chronic Essential hypertension (20 sources) Essential (primary) hypertension; Translations: [Benign essential hypertension] Onset: 11-20-2011 11-20-2011 Chronic Other connective tissue disease (3 sources) Posterior tibial tendinitis, right leg; Translations: [Posterior tibial tendinitis, right leg] Onset: 03-11-2023 Episodic Other nutritional; endocrine; and metabolic disorders (14 sources) Severe obesity; Translations: [Morbid (severe) obesity due to excess calories] Onset: 05-03-2020 05-03-2020 Chronic Other skin disorders (1 source) Loss of hair; Translations: [Nonscarring hair loss, unspecified] Episodic Residual codes; unclassified (1 source) Edema of foot; Translations: [Localized edema] Episodic Residual codes; unclassified (3 sources) Bilateral lower leg edema; Translations: [Localized edema] Onset: 03-04-2023 03-04-2023 Episodic Syncope (1 source) Vasovagal symptom; Translations: [Syncope and collapse] Episodic Unclassified (2 sources) History of abdominal hysterectomy; Translations: [H/O abdominal hysterectomy] Onset: 01-15-2020 01-18-2020 Viral infection (15 sources) COVID-19; Translations: [Pneumonia due to COVID-19 virus] Episodic Past or Other Problems Problem Classification Problem Date Documented Da te Episodic/Chronic Diabetes mellitus without complication (15 sources) Hyperglycemia; Translations: [Hyperglycemia, unspecified] Onset: 07-28-2013 Resolved: 06-01-2014 06-01-2014 Episodic Immunizations and screening for infectious disease (6 sources) Suspected disease caused by 2019-nCoV; Translations: [Suspected COVID-19 virus infection] Onset: 08-22-2022 Episodic Residual codes; unclassified (13 sources) History of abdominal hysterectomy; Translations: [Acquired absence of both cervix and uterus] Onset: 01-15-2020 01-18-2020 Episodic Results Test Name Value Interpretation Reference Range Facility MRI ANKLE RIGHT WO CONTRASTo n 03-12-2023 MRI ANKLE RIGHT WO CONTRAST HISTORY: Increasing pain along the medial aspect of the right ankle with burning sensations. Evaluate for posterior tibialis tendinitis. MRI ANKLE RIGHT WO CONTRAST: 03/11/2023 11:09 AM EDT COMPARISON: None. TECHNIQUE: Multiplanar, multisequence MRI images of the ankle were obtained without contrast. FINDINGS: LIGAMENTS: The anterior talofibular ligament appears within normal limits. The calcaneofibular ligament, posterior talofibular ligament, and distal tibiofibular ligaments appear within normal limits. The deltoid ligament complex appears within normal limits. TENDONS: There is evidence of severe tendinopathy and a superimposed high-grade, longitudinal split tear involving the posterior tibialis tendon from the level of the distal tibial metadiaphysis to its insertion. This tear spans approximately 9 cm in length. There is a severe tenosynovitis of the posterior tibialis tendon sheath. The other tendons of the ankle appear within normal limits. SINUS TARSI AND TARSAL TUNNEL: No space-occupying mass is seen in the tarsal tunnel or the sinus tarsi. BONES AND JOINTS: The bone marrow signal intensity is age appropriate. No unstable osteochondral defect of the tibiotalar joint is identified. There appear to be mild focal degenerative changes of the anterior aspect of the tibiotalar joint with a 6 mm fragmented osteophyte from the anteroinferior aspect of the tibial plafond as best seen on image 8 of the sagittal T1 sequence. There is a spur along the posteromedial aspect of the medial malleolus adjacent to the posterior tibialis tendon sheath. There appear to be mild degenerative changes of the dorsal aspect of the talonavicular joint. There also appear to be mild degenerative changes of the dorsal aspect of the second tarsometatarsal joint. PLANTAR FASCIA: There is no abnormal thickening or abnormal signal intensity of the plantar fascia and there is no surrounding soft tissue edema to suggest plantar fasciitis. SOFT TISSUES: No significant soft tissue swelling is seen. IMPRESSION: 1. Severe tendinopathy of the majority of the posterior tibialis tendon with a superimposed high-grade, longitudinal split tear of the tendon extending approximately 9 cm in length from the level of the distal tibial metadiaphysis to its insertion. There is an associated severe tenosynovitis of the posterior tibialis tendon sheath. These findings are associated with a large spur along the posteromedial aspect of the medial malleolus. 2. 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 3. Mild osteoarthritis of the talonavicular joint and the second tarsometatarsal joint. 4. No ligament injury is seen. Interpreted by: Lenny Mane MD Signed by: Lenny Mane MD 03/12/23 Final result Normal [facility] Comp Metabolic Profon 2022 Albumin [Mass/Vol] 4.1 g/dL Normal 3.5-5.2 [facility] Comment on above: Performed By: #### Z FAST, CP #### [facility] [address] [place] [address] Agricultural Purchasing Agent: Leonides Brunner MD #### GLYHGB, LIPR #### [address] [id number] Agricultural Purchasing Agent: Virgil Shelton MD Alkaline Phos 76 U/L Normal 35-104 [facility] Comment on above: Performed By: #### Z FAST, CP #### [facility] [address] [place], [place] [phone] Agricultural Purchasing Agent: Leonides Brunner MD #### GLYHGB, LIPR #### [address] [phone] Agricultural Purchasing Agent: Virgil Shelton MD ALT [Catalytic activity/Vol] 22 U/L Normal 5-33 [facility] Comment on above: Performed By: #### Z FAST, CP #### [facility] [address] [place], [place] [id number] Agricultural Purchasing Agent: Leonides Brunner MD #### GLYHGB, LIPR #### [address] [address] Agricultural Purchasing Agent: Virgil Shelton MD Anion gap [Moles/Vol] 10 mmol/L Normal 9-17 [facility] Comment on above: Performed By: #### Z FAST, CP #### [facility] [address] [place] [address] Agricultural Purchasing Agent: Leonides Brunner MD #### GLYHGB, LIPR #### [facility] [address] [place] [address] Agricultural Purchasing Agent: Virgil Shelton MD AST [Catalytic activity/Vol] 14 U/L Normal <32 [facility] Comment on above: Performed By: #### Makayla FAST, CP #### [facility] [address] [place] [address] Agricultural Purchasing Agent: Leonides Brunner MD #### SEAN, LIPR #### [address] [place] [address] [place], [place] [id number] Agricultural Purchasing Agent: Virgil Shelton MD Bilirubin [Mass/Vol] 0.4 mg/dL Normal 0.3-1.2 [facility] Comment on above: Performed By: #### Makayla FAST, CP #### [facility] [address] [place] [address] Agricultural Purchasing Agent: Leonides Brunner MD #### SEAN, LIPR #### [facility] [address] [place] [address] Agricultural Purchasing Agent: Virgil Shelton MD BUN/CRE Ratio 25 High 9-20 [facility] Comment on above: Performed By: #### Makayla FAST, CP #### [facility] [address] [place] [address] Agricultural Purchasing Agent: Leonides Brunner MD #### GLYHGB, LIPR #### [facility] [address] [place] [address] Agricultural Purchasing Agent: Virgil Shelton MD Calcium [Mass/Vol] 9.1 mg/dL Normal 8.6-10.4 [facility] Comment on above: Performed By: #### Makayla FAST, CP #### [facility] [address] [place] [address] Agricultural Purchasing Agent: Leonides Brunner MD #### GLYHGB, LIPR #### [address] [phone] Agricultural Purchasing Agent: Virgil Shelton MD Chloride [Moles/Vol] 104 mmol/L Normal 98-107 [facility] Comment on above: Performed By: #### Makayla FAST, CP #### [facility] [address] [place], [place] [phone] Agricultural Purchasing Agent: Leonides Brunner MD #### JAIMIEHGB, LIPR #### [address] [address] Agricultural Purchasing Agent: Virgil Shelton MD CO2 [Moles/Vol] 23 mmol/L Normal 20-31 [facility] Comment on above: Performed By: #### Makayla FAST, CP #### [facility] [address] [place] [address] Agricultural Purchasing Agent: Leonides Brunner MD #### SEAN, LIPR #### [address] [address] Agricultural Purchasing Agent: Virgil Shelton MD Creatinine [Mass/Vol] 0.6 mg/dL Normal 0.5-0.9 [facility] Comment on above: Performed By: #### Makayla FAST, CP #### [facility] [address] [place] [address] Agricultural Purchasing Agent: Leonides Brunner MD #### GLYHGB, LIPR #### [address] [address] Agricultural Purchasing Agent: Virgil Shelton MD GFR/1.73 sq M.predicted among non-blacks MDRD (S/P/Bld) [Vol rate/Area] mL/min/{1.73_m2} Normal >60 [facility] Comment on above: Result Comment: These results are not intended for use in patients <18 years of age. eGFR results are calculated without a race factor using the 2020 CKD-EPI equation. Careful clinical correlation is recommended, particularly when comparing to results calculated using previous equations. The CKD-EPI equation is less accurate in patients with extremes of muscle mass, extra-renal metabolism of creatine, excessive creatine ingestion, or following therapy that affects renal tubular secretion. Performed By: #### Z FAST, CP #### [facility] [address] [place] [address] Agricultural Purchasing Agent: Leonides Brunner MD #### GLYHGB, LIPR #### [id number] [place] [address] Agricultural Purchasing Agent: Virgil Shelton MD Glucose [Mass/Vol] 145 mg/dL High 70-99 [facility] Comment on above: Performed By: #### Z FAST, CP #### [facility] [address] [place] [address] Agricultural Purchasing Agent: Leonides Brunner MD #### GLYHGB, LIPR #### [id number] [place] [address] Agricultural Purchasing Agent: Virgil Shelton MD Potassium [Moles/Vol] 4.0 mmol/L Normal 3.7-5.3 [facility] Comment on above: Performed By: #### Z FAST, CP #### [facility] [address] [place] [address] Agricultural Purchasing Agent: Leonides Brunner MD #### GLYHGB, LIPR #### [facility] [address] [place] [address] Agricultural Purchasing Agent: Virgil Shelton MD Protein [Mass/Vol] 6.9 g/dL Normal 6.4-8.3 [facility] Comment on above: Performed By: #### Z FAST, CP #### [facility] [address] [place] [address] Agricultural Purchasing Agent: Leonides Brunner MD #### GLYHGB, LIPR #### [facility] [address] [place] [address] Agricultural Purchasing Agent: Virgil Shelton MD Sodium [Moles/Vol] 137 mmol/L Normal 135-144 [facility] Comment on above: Performed By: #### Makayla FAST, CP #### [facility] [address] [place] [address] Agricultural Purchasing Agent: Leonides Brunner MD #### GLYHGB, LIPR #### [facility] [address] [place] [address] Agricultural Purchasing Agent: Virgil Shelton MD Urea nitrogen [Mass/Vol] 15 mg/dL Normal 6-20 [facility] Comment on above: Performed By: #### Makayla FAST, CP #### [facility] [address] [place], [place] [id number] Agricultural Purchasing Agent: Leonides Brunner MD #### GLYHGB, LIPR #### [address] [address] Agricultural Purchasing Agent: Virgil Shelton MD Hemoglobin A1Con 03-01-2023 Glucose [Mass/Vol] 146 mg/dL Normal [facility] Comment on above: Result Comment: The ADA and AACC recommend providing the estimated average glucose result to permit better patient understanding of their HBA1c result. Performed By: #### Makayla FAST, CP #### [facility] [address] [place], [place] [phone] Agricultural Purchasing Agent: Leonides Brunner MD #### GLYHGB, LIPR #### [facility] [address] [place] [address] Agricultural Purchasing Agent: Virgil Shelton MD HbA1c (Bld) [Mass fraction] 6.7 % High 4.0-6.0 [facility] Comment on above: Performed By: #### Makayla FAST, CP #### [facility] [address] [place], [place] [phone] Agricultural Purchasing Agent: Leonides Brunner MD #### GLYHGB, LIPR #### [facility] [address] [place], [place] [phone] Agricultural Purchasing Agent: Virgil Shelton MD Lipid Profileon 03-01-2023 Cholesterol [Mass/Vol] 199 mg/dL Normal <200 [facility] Comment on above: Result Comment: Cholesterol Guidelines: <200 Desirable 200-240 Borderline >240 Undesirable Performed By: #### Makayla FAST, CP #### [facility] [address] [place], [place] [phone] Agricultural Purchasing Agent: Leonides Brunner MD #### GLYHGB, LIPR #### [facility] [address] [place] [id number] Agricultural Purchasing Agent: Virgil Shelton MD Cholesterol in HDL [Mass/Vol] 47 mg/dL Normal >40 [facility] Comment on above: Result Comment: HDL Guidelines: <40 Undesirable 40-59 Borderline >59 Desirable Performed By: #### Makayla FAST, CP #### [facility] [address] [place], [place] [phone] Agricultural Purchasing Agent: Leonides Brunner MD #### JAIMIEHGObi, LIPR #### [facility] [address] [place] [address] [phone] Agricultural Purchasing Agent: Virgil Shelton MD Cholesterol in LDL [Mass/Vol] 100 mg/dL Normal 0-130 [facility] Comment on above: Result Comment: LDL Guidelines: <100 Desirable 100-129 Near to/above Desirable 130-159 Borderline >159 Undesirable Direct (measured) LDL and calculated LDL are not interchangeable tests. Performed By: #### Makayla FAST, CP #### [facility] [address] [place], [place] [phone] Agricultural Purchasing Agent: Leonides Brunner MD #### GLYHGB, LIPR #### [facility] [address] [place] [address] [phone] Agricultural Purchasing Agent: Virgil Shelton MD Cholesterol.total/Ch olesterol in HDL [Mass ratio] 4.2 {ratio} Normal <5 [facility] Comment on above: Performed By: #### Z FAST, CP #### [facility] [address] [place], [place] [phone] Agricultural Purchasing Agent: Leonides Brunner MD #### GLYHGB, LIPR #### [facility] [address] [place] [address] Agricultural Purchasing Agent: Virgil Shelton MD Triglyceride [Mass/Vol] 259 mg/dL High <150 [facility] Comment on above: Result Comment: Triglyceride Guidelines: <150 Desirable 150-199 Borderline 200-499 High >499 Very high Based on AHA Guidelines for fasting triglyceride, May 2012. Performed By: #### Makayla FAST, CP #### [facility] [address] [place], [place] [phone] Agricultural Purchasing Agent: Leonides Brunner MD #### GLYHGB, LIPR #### [facility] [address] [place] [address] Agricultural Purchasing Agent: Virgil Shelton MD Microalb.,Random Uron 2022 Creatinine [Mass/Vol] 134.1 mg/dL Normal 28.0-217.0 [facility] Comment on above: Performed By: #### U RNMAB #### [facility] [address] [place] [address] Agricultural Purchasing Agent: Virgil Shelton MD Microalb/Creat Ratio Can not be calculated Normal <25 [facility] Comment on above: Performed By: #### U RNMAB #### [facility] [address] [place] [phone] Agricultural Purchasing Agent: Virgil Shelton MD Microalbumin conc. <12 Normal <21 [facility] Comment on above: Performed By: #### U RNMAB #### [facility] [address] [place] [phone] Agricultural Purchasing Agent: Virgil Shelton MD Patient fasting?on 3 Patient fasting? yes Normal [facility] Comment on above: Performed By: #### Z FAST, CP #### [facility] [address] [place], [place] [phone] Agricultural Purchasing Agent: Leonides Brunner MD #### GLYHGB, LIPR #### [place] [id number] [place], [place] [phone] Agricultural Purchasing Agent: Virgil Shelton MD Comp Metabolic Profon 2022 Albumin [Mass/Vol] 3.9 g/dL Normal 3.5-5.2 [facility] Comment on above: Performed By: #### Makayla FAST, CP #### [facility] [address] [place], [place] [phone] Agricultural Purchasing Agent: Leonides Brunner MD #### GLYHGB, LIPR, HIVCMB, AHCV #### [address] [phone] Agricultural Purchasing Agent: Virgil Shelton MD Alkaline Phos 73 U/L Normal 35-104 [facility] Comment on above: Performed By: #### Makayla FAST, CP #### [facility] [address] [place], [place] [phone] Agricultural Purchasing Agent: Leonides Brunner MD #### GLYHGB, LIPR, HIVCMB, AHCV #### [address] [phone] Agricultural Purchasing Agent: Virgil Shelton MD ALT [Catalytic activity/Vol] 19 U/L Normal 5-33 [facility] Comment on above: Performed By: #### Z FAST, CP #### [facility] [address] [place], [place] [phone] Agricultural Purchasing Agent: Leonides Brunner MD #### GLYHGB, LIPR, HIVCMB, AHCV #### [address] [phone] Agricultural Purchasing Agent: Virgil Shelton MD Anion gap [Moles/Vol] 10 mmol/L Normal 9-17 [facility] Comment on above: Performed By: #### Makayla FAST, CP #### [facility] [address] [place], [place] [phone] Agricultural Purchasing Agent: Leonides Brunner MD #### GLYHGB, LIPR, HIVCMB, AHCV #### [address] [phone] Agricultural Purchasing Agent: Virgil Shelton MD AST [Catalytic activity/Vol] 12 U/L Normal <32 [facility] Comment on above: Performed By: #### Makayla FAST, CP #### [facility] [address] [place], [place] [phone] Agricultural Purchasing Agent: Leonides Brunner MD #### GLYHGB, LIPR, HIVCMB, AHCV #### [address] [phone] Agricultural Purchasing Agent: Virgil Shelton MD Bilirubin [Mass/Vol] 0.3 mg/dL Normal 0.3-1.2 [facility] Comment on above: Performed By: #### Makayla FAST, CP #### [facility] [address] [place], [place] [phone] Agricultural Purchasing Agent: Leonides Brunner MD #### GLYHGB, LIPR, HIVCMB, AHCV #### [address] [phone] Agricultural Purchasing Agent: Virgil Shelton MD BUN/CRE Ratio 17 Normal 9-20 [facility] Comment on above: Performed By: #### Makayla FAST, CP #### [facility] [address] [place], [place] [phone] Agricultural Purchasing Agent: Leonides Brunner MD #### GLYHGB, LIPR, HIVCMB, AHCV #### [address] [place], [place] [phone] Agricultural Purchasing Agent: Virgil Shelton MD Calcium [Mass/Vol] 8.6 mg/dL Normal 8.6-10.4 [facility] Comment on above: Performed By: #### Z FAST, CP #### [facility] [address] [place], [place] [phone] Agricultural Purchasing Agent: Leonides Brunner MD #### GLYHGB, LIPR, HIVCMB, AHCV #### [facility] [address] [place], [place] [phone] Agricultural Purchasing Agent: Virgil Shelton MD Chloride [Moles/Vol] 101 mmol/L Normal 98-107 [facility] Comment on above: Performed By: #### Z FAST, CP #### [facility] [address] [place], [place] [phone] Agricultural Purchasing Agent: Leonides Brunner MD #### GLYHGB, LIPR, HIVCMB, AHCV #### [address] [phone] Agricultural Purchasing Agent: Virgil Shelton MD CO2 [Moles/Vol] 23 mmol/L Normal 20-31 [facility] Comment on above: Performed By: #### Z FAST, CP #### [facility] [address] [place], [place] [phone] Agricultural Purchasing Agent: Leonides Brunner MD #### GLYHGB, LIPR, HIVCMB, AHCV #### [address] [phone] Agricultural Purchasing Agent: Virgil Shelton MD Creatinine [Mass/Vol] 0.63 mg/dL Normal 0.50-0.90 [facility] Comment on above: Performed By: #### Z FAST, CP #### [facility] [address] [place], [place] [phone] Agricultural Purchasing Agent: Leonides Brunner MD #### GLYHGB, LIPR, HIVCMB, AHCV #### [facility] [address] [place], [place] [phone] Agricultural Purchasing Agent: Virgil Shelton MD GFR/1.73 sq M.predicted among non-blacks MDRD (S/P/Bld) [Vol rate/Area] mL/min/{1.73_m2} Normal >60 [facility] Comment on above: Result Comment: Effective May 21, 2022 These results are not intended for use in patients <18 years of age. eGFR results are calculated without a race factor using the 2020 CKD-EPI equation. Careful clinical correlation is recommended, particularly when comparing to results calculated using previous equations. The CKD-EPI equation is less accurate in patients with extremes of muscle mass, extra-renal metabolism of creatine, excessive creatine ingestion, or following therapy that affects renal tubular secretion. Performed By: #### Z FAST, CP #### [facility] [address] [place] [address] Agricultural Purchasing Agent: Leonides Brunner MD #### GLYHGB, LIPR, HIVCMB, AHCV #### [address] [place] [address] Agricultural Purchasing Agent: Virgil Shelton MD Glucose [Mass/Vol] 141 mg/dL High 70-99 [facility] Comment on above: Performed By: #### Z FAST, CP #### [facility] [address] [place] [address] Agricultural Purchasing Agent: Leonides Brunner MD #### GLYHGB, LIPR, HIVCMB, AHCV #### [facility] [place], [place] [phone] Agricultural Purchasing Agent: Virgil Shelton MD Potassium [Moles/Vol] 4.2 mmol/L Normal 3.7-5.3 [facility] Comment on above: Performed By: #### Z FAST, CP #### [facility] [address] [place] [address] Agricultural Purchasing Agent: Leonides Brunner MD #### GLYHGB, LIPR, HIVCMB, AHCV #### [address] [place], [place] [phone] Agricultural Purchasing Agent: Virgil Shelton MD Protein [Mass/Vol] 6.6 g/dL Normal 6.4-8.3 [facility] Comment on above: Performed By: #### Z FAST, CP #### [facility] [address] [place] [phone] Agricultural Purchasing Agent: Leonides Brunner MD #### GLYHGB, LIPR, HIVCMB, AHCV #### [place] [address] [place] [phone] Agricultural Purchasing Agent: Virgil Shelton MD Sodium [Moles/Vol] 134 mmol/L Low 135-144 [facility] Comment on above: Performed By: #### Z FAST, CP #### [facility] [address] [place] [phone] Agricultural Purchasing Agent: Leonides Brunner MD #### GLYHGB, LIPR, HIVCMB, AHCV #### [place] [phone] Agricultural Purchasing Agent: Virgil Shelton MD Urea nitrogen [Mass/Vol] 11 mg/dL Normal 6-20 [facility] Comment on above: Performed By: #### Z FAST, CP #### [facility] [address] [place] [phone] Agricultural Purchasing Agent: Leonides Brunner MD #### GLYHGB, LIPR, HIVCMB, AHCV #### [address] [place] [address] Agricultural Purchasing Agent: Virgil Shelton MD Comprehensive Metabolic Pane nadia 08-22-2022 Albumin [Mass/Vol] 3.9 g/dL 3.5 - 5.2 g/dL [facility] ALP (Bld) [Catalytic activity/Vol] 73 U/L 35 - 104 U/L [facility] ALT [Catalytic activity/Vol] 19 U/L 5 - 33 U/L [facility] Anion gap [Moles/Vol] 10 mmol/L 9 - 17 mmol/L [facility] AST [Catalytic activity/Vol] 12 U/L NINF - 32 U/L [facility] Bilirubin [Mass/Vol] 0.3 mg/dL 0.3 - 1 .2 mg/dL [facility] Calcium [Mass/Vol] 8.6 mg/dL 8.6 - 10. 4 mg/dL [facility] Chloride [Moles/Vol] 101 mmol/L 98 - 10 7 mmol/L [facility] CO2 [Moles/Vol] 23 mmol/L 20 - 31 mmol/L [facility] Creatinine [Mass/Vol] 0.63 mg/dL 0.50 - 0.90 mg/dL [facility] GFR/1.73 sq M.predicted MDRD (S/P/Bld) [Vol rate/Area] - PINF [facility] Comment on above: Effective May 21, 2022 These results are not intended for use in patients <18 years of age. eGFR results are calculated without a race factor using the 2020 CKD-EPI equation. Careful clinical correlation is recommended, particularly when comparing to results calculated using previous equations. The CKD-EPI equation is less accurate in patients with extremes of muscle mass, extra-renal metabolism of creatine, excessive creatine ingestion, or following therapy that affects renal tubular secretion. Glucose [Mass/Vol] 141 mg/dL High 70 - 99 mg/dL [facility] Interpretation and review of laboratory results Abnormal [facility] Potassium [Moles/Vol] 4.2 mmol/L 3.7 - 5.3 mmol/L [facility] Protein [Mass/Vol] 6.6 g/dL 6.4 - 8.3 g/dL [facility] Sodium [Moles/Vol] 134 mmol/L Low 135 - 144 mmol/L [facility] Urea nitrogen (BldV) [Mass/Vol] 11 mg/dL 6 - 20 mg/dL [facility] Urea nitrogen/Creatinine (Bld) [Mass ratio] 17 9 - 20 [facility] HIV Ag/Abon 08-22-2022 HIV Ag/Ab Non-Reactive Normal NR [facility] Comment on above: Result Comment: No l aboratory evidence of HIV infection. If acute HIV infection is suspected, consider testing for HIV-1 RNA. Performed By: #### Makayla FAST, CP #### [facility] [address] [place], [place] [phone] Agricultural Purchasing Agent: Leonides Brunner MD #### GLYHGB, LIPR #### [facility] [address] [place] [address] Agricultural Purchasing Agent: Virgil Shelton MD HIV Screenon 08-22-2022 HIV Ag/Ab Non-Reactive NONREACTIVE [facility] Comment on above: No laboratory eviden ce of HIV infection. If acute HIV infection is suspected, consider testing for HIV-1 RNA. [facility] Hemoglobin A1Con 08-22-2022 Glucose [Mass/Vol] 140 mg/dL Normal [facility] Comment on above: Result Comment: The ADA and AACC recommend providing the estimated average glucose result to permit better patient understanding of their HBA1c result. Performed By: #### Makayla FAST, CP #### [facility] [address] [place] [address] Agricultural Purchasing Agent: Leonides Brunner MD #### GLYHGB, LIPR #### [facility] [address] [place] [address] Agricultural Purchasing Agent: Virgil Shelton MD HbA1c (Bld) [Mass fraction] 6.5 % High 4.0-6.0 [facility] Comment on above: Performed By: #### Makayla FAST, CP #### [facility] [address] [place] [address] Agricultural Purchasing Agent: Leonides Brunner MD #### GLYHGB, LIPR #### [facility] [address] [place], [place] [phone] Agricultural Purchasing Agent: Virgil Shleton MD Glucose [Mass/Vol] 140 mg/dL [facility] Comment on above: The ADA and AACC rec ommend providing the estimated average glucose result to permit better patient understanding of their HBA1c result. HbA1c (Bld) [Mass fraction] 6.5 % High 4.0 - 6.0 % [facility] Interpretation and review of laboratory results Abnormal [facility] Hep C Abon 08-22-2022 Hep C Ab Non-Reactive Normal NR [facility] Comment on above: Result Comment: The hepatitis C procedure used in our laboratory is a Chemiluminescent test specific for three recombinant HCV antigens. A negative anti-HCV result indicates that the antibodies to hepatitis C virus are not present at this time. Individuals with reactive anti-HCV should be considered infected and infectious until proven otherwise. Confirmation of all equivocal or reactive results is recommended by ordering HCV RNA by PCR. Performed By: #### Z FAST, CP #### [facility] [address] [place] [address] Agricultural Purchasing Agent: Leonides Brunner MD #### GLYHGB, LIPR, HIVCMB, AHCV #### [facility] [address] [place] [address] Agricultural Purchasing Agent: Virgil Shelton MD Hepatitis C Antibodyon 08-22 Hepatitis C Ab Non-Reactive NONREACTIVE [facility] Comment on above: The hepatitis C procedure used in our laboratory is a Chemiluminescent test specific for three recombinant HCV antigens. A negative anti-HCV result indicates that the antibodies to hepatitis C virus are not present at this time. Individuals with reactive anti-HCV should be considered infected and infectious until proven otherwise. Confirmation of all equivocal or reactive results is recommended by ordering HCV RNA by PCR. [facility] Lipid Panelon 08-22-2022 Cholesterol [Mass/Vol] 209 mg/dL High NINF - 200 mg/dL [facility] Comment on above: Cholesterol Guidelines: <200 Desirable 200-240 Borderline >240 Undesirable Cholesterol in HDL [Mass/Vol] 49 mg/dL 40 - PINF mg/dL [facility] Comment on above: HDL Guidelines: <40 Undesirable 40-59 Borderline >59 Desirable Cholesterol in LDL [Mass/Vol] 105 mg/dL 0 - 130 mg/dL [facility] Comment on above: LDL Guidelines: <100 Desirable 100-129 Near to/above Desirable 130-159 Borderline >159 Undesirable Direct (measured) LDL and calculated LDL are not interchangeable tests. Cholesterol.total/Ch olesterol in HDL [Mass ratio] 4.3 {ratio} NINF - 5 [facility] Interpretation and review of laboratory results Abnormal [facility] Triglyceride [Mass/Vol] 275 mg/dL High NINF - 150 mg/dL [facility] Comment on above: Triglyceride Guidelines: <150 Desirable 150-199 Borderline 200-499 High >499 Very high Based on AHA Guidelines for fasting triglyceride, May 2012. [facility] Lipid Profileon 08-22-2022 Cholesterol [Mass/Vol] 209 mg/dL High <200 [facility] Comment on above: Result Comment: Cholesterol Guidelines: <200 Desirable 200-240 Borderline >240 Undesirable Performed By: #### Makayla FAST, CP #### [facility] [address] [place] [phone] Agricultural Purchasing Agent: Leonides Brunner MD #### GLYHGB, LIPR, HIVCMB, AHCV #### [facility] [address] [place] [address] Agricultural Purchasing Agent: Virgil Shelton MD Cholesterol in HDL [Mass/Vol] 49 mg/dL Normal >40 [facility] Comment on above: Result Comment: HDL Guidelines: <40 Undesirable 40-59 Borderline >59 Desirable Performed By: #### Z FAST, CP #### [facility] [address] [place] [phone] Agricultural Purchasing Agent: Leonides Brunner MD #### GLYHGB, LIPR, HIVCMB, AHCV #### [facility] [address] [place] [address] Agricultural Purchasing Agent: Virgil Shelton MD Cholesterol in LDL [Mass/Vol] 105 mg/dL Normal 0-130 [facility] Comment on above: Result Comment: LDL Guidelines: <100 Desirable 100-129 Near to/above Desirable 130-159 Borderline >159 Undesirable Direct (measured) LDL and calculated LDL are not interchangeable tests. Performed By: #### Z FAST, CP #### [facility] [address] [place], [place] [phone] Agricultural Purchasing Agent: Leonides Brunner MD #### GLYHGB, LIPR, HIVCMB, AHCV #### [facility] [address] [place], [place] [phone] Agricultural Purchasing Agent: Virgil Shelton MD Cholesterol.total/Ch olesterol in HDL [Mass ratio] 4.3 {ratio} Normal <5 [facility] Comment on above: Performed By: #### Makayla FAST, CP #### [facility] [address] [place], [place] [phone] Agricultural Purchasing Agent: Leonides Brunner MD #### GLYHGB, LIPR, HIVCMB, AHCV #### [facility] [address] [place], [place] [phone] Agricultural Purchasing Agent: Virgil Shelton MD Triglyceride [Mass/Vol] 275 mg/dL High <150 [facility] Comment on above: Result Comment: Triglyceride Guidelines: <150 Desirable 150-199 Borderline 200-499 High >499 Very high Based on AHA Guidelines for fasting triglyceride, May 2012. Performed By: #### Makayla FAST, CP #### [facility] [address] [place], [place] [phone] Agricultural Purchasing Agent: Leonides Brunner MD #### GLYHGB, LIPR, HIVCMB, AHCV #### [facility] [address] [place], [place] [phone] Agricultural Purchasing Agent: Virgil Shelton MD Patient Fasting?on 3 Patient Fasting? YES [facility] Patient fasting?on 3 Patient fasting? YES Normal [facility] Comment on above: Performed By: #### Z FAST, CP #### [facility] [address] [facility] [place] [address] Agricultural Purchasing Agent: Leonides Brunner MD #### GLYHGB, LIPR, HIVCMB, AHCV #### [facility] [address] [place] [address] Agricultural Purchasing Agent: Virgil Shelton MD APTTon 04-14-2022 aPTT Coag (Bld) [Time] 28.2 s [facility] Comment on above: IV Heparin Therapy Range: 62.0-94.0 CBC with Auto Differentialon 04-14-2022 Absolute Eos # 0.00 [facility] Absolute Lymph # 0.80 Low [facility] Absolute Taos # 0.70 [facility] Basophils (Bld) [#/Vol] 0.00 10*3/uL [facility] Basophils/100 WBC (Bld) 0 % 0 - 2 % [facility] Differential Type YES [facility] Eosinophils/100 WBC (Bld) 0 % 0 - 5 % [facility] Hematocrit (Bld) [Volume fraction] 41.3 % 36 - 46 % [facility] Hemoglobin (Bld) [Mass/Vol] 14.1 g/dL 12 - 16 g/dL [facility] Interpretation and review of laboratory results Abnormal [facility] Lymphocytes/100 WBC (Bld) 7 % Low 15 - 40 % [facility] MCH (RBC) [Entitic mass] 28.4 pg 26 - 34 pg [facility] MCHC (RBC) [Mass/Vol] 34.1 g/dL 31 - 37 g/dL [facility] MCV (RBC) [Entitic vol] 83.5 fL 80 - 100 fL [facility] Monocytes/100 WBC (Bld) 6 % 4 - 8 % [facility] Platelet distribution width (Bld) [Ratio] 13.4 % 12.1 - 15.2 % [facility] Platelets (Bld) [#/Vol] 276 10*3/uL [facility] RBC (Bld) [#/Vol] 4.95 10*6/uL 4 - 5.2 m/uL [facility] Segmented neutrophils/100 WBC (Bld) 87 % High 47 - 75 % [facility] Segs Absolute 10.60 High [facility] WBC (Bld) [#/Vol] 12.1 10*3/uL High [facility] COVID-19, Rapidon 04-14-2022 Interpretation and review of laboratory results Abnormal [facility] SARS-CoV-2 (COVID-19) RNA PINEDA+probe Ql (Unsp spec) Detected Abnormal Not Detected [facility] Comment on above: Rapid NAAT: The specimen is POSITIVE for SARS-Cov-2, the novel coronavirus associated with COVID-19. This test has been authorized by the FDA under an Emergency Use Authorization (EUA) for use by authorized laboratories. The ID NOW COVID-19 assay is designed to detect the virus that causes COVID-19 in patients with signs and symptoms of infection who are suspected of COVID-19. An individual without symptoms of COVID-19 and who is not shedding SARS-CoV-2 virus would expect to have a negative (not detected) result in this assay. Fact sheet for Healthcare Providers: https://www.fda.gov/media/605065/download Fact sheet for Patients: https://www.fda.gov/media/425001/download Methodology: Isothermal Nucleic Acid Amplification Results reported to the appropriate Health Department Specimen Description .NASOPHARYNGEAL SWAB [facility] Comprehensive Metabolic Pane nadia 04-14-2022 Albumin [Mass/Vol] 4.2 g/dL 3.5 - 5.2 g/dL [facility] ALP (Bld) [Catalytic activity/Vol] 90 U/L 35 - 104 U/L [facility] ALT [Catalytic activity/Vol] 21 U/L 5 - 33 U/L [facility] Anion gap [Moles/Vol] 14 mmol/L 9 - 17 mmol/L [facility] AST [Catalytic activity/Vol] 14 U/L NINF - 32 U/L [facility] Bilirubin [Mass/Vol] 0.29 mg/dL Low 0.3 - 1 .2 mg/dL [facility] Calcium [Mass/Vol] 9.2 mg/dL 8.6 - 10. 4 mg/dL [facility] Chloride [Moles/Vol] 102 mmol/L 98 - 10 7 mmol/L [facility] CO2 [Moles/Vol] 21 mmol/L 20 - 31 mmol/L [facility] Creatinine [Mass/Vol] 0.77 mg/dL 0.5 - 0.9 mg/dL [facility] Free PSA/Total PSA [Mass fraction] 7.2 g/dL 6.4 - 8.3 g/dL [facility] GFR >60 60 - PI NF mL/min [facility] GFR Non- >60 60 - PINF mL/min [facility] GFR/1.73 sq M.predicted MDRD (S/P/Bld) [Vol rate/Area] [facility] Comment on above: Average GFR for 30-3 9 years old: 107 mL/min/1.73sq m Chronic Kidney Disease: <60 mL/min/1.73sq m Kidney failure: <15 mL/min/1.73sq m eGFR calculated using average adult body mass. Additional eGFR calculator available at: http://www.[employer]/multiple_crcl_2012.htm Glucose [Mass/Vol] 181 mg/dL High 70 - 99 mg/dL [facility] Interpretation and review of laboratory results Abnormal [facility] Potassium [Moles/Vol] 3.8 mmol/L 3.7 - 5.3 mmol/L [facility] Sodium [Moles/Vol] 137 mmol/L 135 - 144 mmol/L [facility] Urea nitrogen (BldV) [Mass/Vol] 9 mg/dL 6 - 20 mg/dL [facility] [facility] Urea nitrogen/Creatinine (Bld) [Mass ratio] 12 9 - 20 [facility] No Panel Informationon 04-14 [facility] Protime-INRon 04-14-2022 INR Coag (Bld) [Relative time] 1.0 {INR} [facility] Comment on above: Non-therapeutic Range: INR = 0.9-1.2 Therapeutic Range: Moderate Anticoagulant Intensity: INR = 2.0-3.0 High Anticoagulant Intensity: INR = 2.5-3.5 PT Coag (PPP) [Time] 13 s [facility] Troponinon 04-14-2022 Troponin, High Sensitivity ng/L 0 - 14 ng/L [facility] [employer] Comment on above: High Sensitivity Troponin values cannot be compared with other Troponin methodologies. Patients with high levels of Biotin oral intake (i.e >5mg/day) may have falsely decreased Troponin levels. Samples collected within 8 hours of biotin intake may require additional information for diagnosis. [facility] [employer] XR CHEST PORTABLEon 04-14-20 SARS-CoV-2 (COVID-19) Ab IA Ql EXAM: XR CHEST PORTABLE HISTORY: Reason for exam:->Covid 19 virus infection. COMPARISON: 02/08/2017 TECHNIQUE: A single AP portable view the chest was obtained at 2047 hours. FINDINGS: There continues to be a normal heart, mediastinal, hilar, and pulmonary appearance. There is no infiltrate or acute change. [facility] Negative AP portable chest. [facility] Mary Kay Macdonald, - 04/14/2022 EXAM: XR CHEST PORTABLE HISTORY: Reason for exam:->Covid 19 virus infection. COMPARISON: 02/08/2017 TECHNIQUE: A single AP portable view the chest was obtained at 2047 hours. FINDINGS: There continues to be a normal heart, mediastinal, hilar, and pulmonary appearance. There is no infiltrate or acute change. IMPRESSION: Negative AP portable chest. [facility] [employer] Work Phone: Radiology Study observation (narrative) [facility] [employer] Work Phone: XR CHEST PORTABLEOrdered By: Mary Kay Macdonald on 04-14-2022 [facility] [employer] Work Phone: COVID-19, Rapidon 03-15-2022 SARS-CoV-2 (COVID-19) RNA PINEDA+probe Ql (Unsp spec) Not detected Not Detected [facility] [employer] Comment on above: Rapid NAAT: The specimen is NEGATIVE for SARS-CoV-2, the novel coronavirus associated with COVID-19. The ID NOW COVID-19 assay is designed to detect the virus that causes COVID-19 in patients with signs and symptoms of infection who are suspected of COVID-19. An individual without symptoms of COVID-19 and who is not shedding SARS-CoV-2 virus would expect to have a negative (not detected) result in this assay. Negative results should be treated as presumptive and, if inconsistent with clinical signs and symptoms or necessary for patient management, should be tested with an alternative molecular assay. Negative results do not preclude SARS-CoV-2 infection and should not be used as the sole basis for patient management decisions. Fact sheet for Healthcare Providers: https://www.fda.gov/media/403431/download Fact sheet for Patients: https://www.fda.gov/media/323388/download Methodology: Isothermal Nucleic Acid Amplification Specimen Description .NASOPHARYNGEAL SWAB [facility] Comprehensive Metabolic Pane nadia 01-20-2022 Albumin [Mass/Vol] 4.3 g/dL 3.5 - 5.2 g/dL [facility] ALP (Bld) [Catalytic activity/Vol] 90 U/L 35 - 104 U/L [facility] ALT [Catalytic activity/Vol] 32 U/L 5 - 33 U/L [facility] Anion gap [Moles/Vol] 13 mmol/L 9 - 17 mmol/L [facility] AST [Catalytic activity/Vol] 20 U/L <32 [facility] Bilirubin [Mass/Vol] 0.31 mg/dL 0.30 - 1.20 mg/dL [facility] Calcium [Mass/Vol] 9.3 mg/dL 8.6 - 10. 4 mg/dL [facility] Chloride [Moles/Vol] 100 mmol/L 98 - 10 7 mmol/L [facility] CO2 [Moles/Vol] 22 mmol/L 20 - 31 mmol/L [facility] Creatinine [Mass/Vol] 0.69 mg/dL 0.50 - 0.90 mg/dL [facility] Free PSA/Total PSA [Mass fraction] 7.0 g/dL 6.4 - 8.3 g/dL [facility] GFR >60 >60 mL/min [facility] GFR Non- >60 >60 mL/min [facility] [employer] GFR/1.73 sq M.predicted MDRD (S/P/Bld) [Vol rate/Area] [facility] Comment on above: Average GFR for 30-3 9 years old: 107 mL/min/1.73sq m Chronic Kidney Disease: <60 mL/min/1.73sq m Kidney failure: <15 mL/min/1.73sq m eGFR calculated using average adult body mass. Additional eGFR calculator available at: http://www.[employer]/multiple_crcl_2012.htm Glucose [Mass/Vol] 165 mg/dL High 70 - 99 mg/dL [facility] Interpretation and review of laboratory results Abnormal [facility] [employer] Potassium [Moles/Vol] 4.2 mmol/L 3.7 - 5.3 mmol/L [facility] Sodium [Moles/Vol] 135 mmol/L 135 - 144 mmol/L [facility] Urea nitrogen (BldV) [Mass/Vol] 14 mg/dL 6 - 20 mg/dL [facility] Urea nitrogen/Creatinine (Bld) [Mass ratio] 20 [facility] Lipid Panelon 01-20-2022 Cholesterol [Mass/Vol] 224 mg/dL High <200 [facility] Comment on above: Cholesterol Guidelines: <200 Desirable 200-240 Borderline >240 Undesirable Cholesterol in HDL [Mass/Vol] 51 mg/dL >40 [facility] Comment on above: HDL Guidelines: <40 Undesirable 40-59 Borderline >59 Desirable Cholesterol in LDL [Mass/Vol] 114 mg/dL 0 - 130 mg/dL [facility] Comment on above: LDL Guidelines: <100 Desirable 100-129 Near to/above Desirable 130-159 Borderline >159 Undesirable Direct (measured) LDL and calculated LDL are not interchangeable tests. Cholesterol.total/Ch olesterol in HDL [Mass ratio] 4.4 {ratio} <5 [facility] Interpretation and review of laboratory results Abnormal [facility] Triglyceride [Mass/Vol] 294 mg/dL High <150 [facility] Comment on above: Triglyceride Guidelines: <150 Desirable 150-199 Borderline 200-499 High >499 Very high Based on AHA Guidelines for fasting triglyceride, May 2012. [facility] Microalbumin, Uron 2 Albumin/Creatinine DL <= 20 mg/L (24H U) [Mass ratio] <12 <21 mg/L [facility] Albumin/Creatinine DL <= 20 mg/L (U) [Ratio] Can not be calculated <25 mcg/mg creat [facility] Creatinine [Mass/Vol] 129.3 mg/dL 28.0 - 217.0 mg/dL [facility] Patient Fasting?on 2 Patient Fasting? YES [facility] CBC with Auto Differentialon 01-01-2022 Absolute Eos # 0.30 [facility] th Absolute Lymph # 3.20 [facility] alth Absolute [place] [facility].70 [facility] Basophils (Bld) [#/Vol] 0.00 10*3/uL [facility] Basophils/100 WBC (Bld) 0 % 0 - 2 % [facility] [employer] Differential Type YES [facility] ealth Eosinophils/100 WBC (Bld) 3 % 0 - 5 % [facility] Hematocrit (Bld) [Volume fraction] 43.7 % 36 - 46 % [facility] Hemoglobin.gastroint estinal spec 1 Ql (Stl) 14.7 g/dL 12.0 - 16.0 g/dL [facility] Interpretation and review of laboratory results Abnormal [facility] Lymphocytes/100 WBC (Bld) 25 % 15 - 40 % [facility] MCH (RBC) [Entitic mass] 28.0 pg 26 - 34 pg [facility] MCHC (RBC) [Mass/Vol] 33.6 g/dL 31 - 37 g/dL [facility] MCV (RBC) [Entitic vol] 83.2 fL 80 - 100 fL [facility] Monocytes/100 WBC (Bld) 6 % 4 - 8 % [facility] [employer] Platelet distribution width (Bld) [Ratio] 13.8 % 12.1 - 15.2 % [facility] [employer] Platelets (Bld) [#/Vol] 316 10*3/uL [facility] [employer] RBC (Bld) [#/Vol] 5.25 10*6/uL High 4.0 - 5.2 m/uL [facility] Segmented neutrophils/100 WBC (Bld) 66 % 47 - 75 % [facility] Segs Absolute 8.30 [facility] h WBC (Bld) [#/Vol] 12.6 10*3/uL [facility] CT ABDOMEN PELVIS W IV CONTR AST Additional Contrast? Noneon 01-01-2022 Hysterectomy. Normal appendix. [facility] EXAMINATION: CT ABDOMEN PELVIS W IV CONTRAST, 01/01/2022 3:28 PM EDT HISTORY: Right lower quadrant pain 41-year-old female. Rule out appendicitis. COMPARISON: None. TECHNIQUE: CT scan of the abdomen and pelvis was performed with IV contrast. CT dose reduction technique was used, including Automated Exposure Control. FINDINGS: PERTINENT POSITIVES: None. PERTINENT NEGATIVES: Normal appendix. No pelvic mass or kidney stone. COINCIDENTAL FINDINGS: Mild degenerative change L5-S1. ROUTINE EXAMINATION: Lung bases are clear. Bladder contour normal. Negative for diverticulitis. Normal kidneys, adrenal glands, spleen, pancreas, gallbladder. Liver normal. No hernia. [facility] CONSOL[facility] Osman Harrington Jr., MD - 01/01/2022 EXAMINATION: CT ABDOMEN PELVIS W IV CONTRAST, 01/01/2022 3:28 PM EDT HISTORY: Right lower quadrant pain 41-year-old female. Rule out appendicitis. COMPARISON: None. TECHNIQUE: CT scan of the abdomen and pelvis was performed with IV contrast. CT dose reduction technique was used, including Automated Exposure Control. FINDINGS: PERTINENT POSITIVES: None. PERTINENT NEGATIVES: Normal appendix. No pelvic mass or kidney stone. COINCIDENTAL FINDINGS: Mild degenerative change L5-S1. ROUTINE EXAMINATION: Lung bases are clear. Bladder contour normal. Negative for diverticulitis. Normal kidneys, adrenal glands, spleen, pancreas, gallbladder. Liver normal. No hernia. IMPRESSION: Hysterectomy. Normal appendix. [employer] Phone: Radiology Study observation (narrative) [employer] Phone: CT ABDOMEN PELVIS W IV CONTR AST Additional Contrast? NoneOrdered By: Osman Harrington on 01-01-2022 [employer] Phone: Comprehensive Metabolic Pane l w/ Reflex to MGon 01-01-2022 Albumin [Mass/Vol] 4.5 g/dL 3.5 - 5.2 g/dL [facility] ALP (Bld) [Catalytic activity/Vol] 93 U/L 35 - 104 U/L [facility] ALT [Catalytic activity/Vol] 25 U/L 5 - 33 U/L [facility] Anion gap [Moles/Vol] 15 mmol/L 9 - 17 mmol/L [facility] AST [Catalytic activity/Vol] 18 U/L <32 [facility] Bilirubin [Mass/Vol] 0.29 mg/dL Low 0.30 - 1.20 mg/dL [facility] Calcium [Mass/Vol] 9.6 mg/dL 8.6 - 10. 4 mg/dL [facility] Chloride [Moles/Vol] 98 mmol/L 98 - 10 7 mmol/L [facility] CO2 [Moles/Vol] 24 mmol/L 20 - 31 mmol/L [facility] Creatinine [Mass/Vol] 0.88 mg/dL 0.50 - 0.90 mg/dL [facility] Free PSA/Total PSA [Mass fraction] 7.6 g/dL 6.4 - 8.3 g/dL [facility] GFR >60 >60 mL/min [facility] GFR Non- >60 >60 mL/min [facility] GFR/1.73 sq M.predicted MDRD (S/P/Bld) [Vol rate/Area] [facility] Comment on above: Average GFR for 30-3 9 years old: 107 mL/min/1.73sq m Chronic Kidney Disease: <60 mL/min/1.73sq m Kidney failure: <15 mL/min/1.73sq m eGFR calculated using average adult body mass. Additional eGFR calculator available at: http://www.[employer].HistoryFile/multiple_crcl_2012.htm Glucose [Mass/Vol] 157 mg/dL High 70 - 99 mg/dL [facility] Interpretation and review of laboratory results Abnormal [facility] Potassium [Moles/Vol] 4.1 mmol/L 3.7 - 5.3 mmol/L [facility] Sodium [Moles/Vol] 137 mmol/L 135 - 144 mmol/L [facility] Urea nitrogen (BldV) [Mass/Vol] 11 mg/dL 6 - 20 mg/dL [facility] Urea nitrogen/Creatinine (Bld) [Mass ratio] 13 [facility] Urinalysison 01-01-2022 Bilirubin Urine Negative NEGATIVE [facility] Color, UA Yellow Yellow [facility] Glucose, Ur 1000 mg/dL Abnormal NEGATIVE [facility] Interpretation and review of laboratory results Abnormal [facility] Ketones Ql (U) Negative NEGATIVE [facility] Leukocyte esterase Test strip Ql (U) Negative NEGATIVE [facility] Nitrite, Urine Negative NEGATIVE [facility] pH, UA 6.0 [facility] Protein, UA Negative NEGATIVE [facility] Specific [place], UA 1.020 [facility] Turbidity UA Clear Clear [facility] Urinalysis Comments [facility] Urine Hgb Negative NEGATIVE [facility] Urobilinogen, Urine Normal Normal [facility] Comprehensive Metabolic Pane nadia 07-24-2021 Albumin [Mass/Vol] 3.9 g/dL 3.5 - 5.2 g/dL [facility] Albumin/Globulin Ratio NOT REPORTED [facility] ALP (Bld) [Catalytic activity/Vol] 91 U/L 35 - 104 U/L [facility] ALT [Catalytic activity/Vol] 23 U/L 5 - 33 U/L [facility] Anion gap [Moles/Vol] 13 mmol/L 9 - 17 mmol/L [facility] AST [Catalytic activity/Vol] 16 U/L <32 [facility] Bilirubin [Mass/Vol] 0.23 mg/dL Low 0.30 - 1.20 mg/dL [facility] Calcium [Mass/Vol] 9.0 mg/dL 8.6 - 10. 4 mg/dL [facility] Chloride [Moles/Vol] 103 mmol/L 98 - 10 7 mmol/L [facility] CO2 [Moles/Vol] 22 mmol/L 20 - 31 mmol/L [facility] Creatinine [Mass/Vol] 0.65 mg/dL 0.50 - 0.90 mg/dL [facility] Free PSA/Total PSA [Mass fraction] 6.7 g/dL 6.4 - 8.3 g/dL [facility] GFR >60 >60 mL/min [facility] GFR Non- >60 >60 mL/min [facility] GFR/1.73 sq M.predicted MDRD (S/P/Bld) [Vol rate/Area] [facility] Comment on above: Average GFR for 30-3 9 years old: 107 mL/min/1.73sq m Chronic Kidney Disease: <60 mL/min/1.73sq m Kidney failure: <15 mL/min/1.73sq m eGFR calculated using average adult body mass. Additional eGFR calculator available at: http://www.[employer]/multiple_crcl_2012.htm GFR/1.73 sq M.predicted MDRD (S/P/Bld) [Vol rate/Area] NOT REPORTED [employer] Glucose [Mass/Vol] 147 mg/dL High 70 - 99 mg/dL [facility] [employer] Interpretation and review of laboratory results Abnormal [employer] Potassium [Moles/Vol] 3.9 mmol/L 3.7 - 5.3 mmol/L [facility] Sodium [Moles/Vol] 138 mmol/L 135 - 144 mmol/L [facility] Urea nitrogen (BldV) [Mass/Vol] 10 mg/dL 6 - 20 mg/dL [employer] Urea nitrogen/Creatinine (Bld) [Mass ratio] 15 [employer] [facility] Lipid Panelon 07-24-2021 Cholesterol [Mass/Vol] 189 mg/dL <200 [facility] Comment on above: Cholesterol Guidelines: <200 Desirable 200-240 Borderline >240 Undesirable Cholesterol in HDL [Mass/Vol] 54 mg/dL >40 [employer] Comment on above: HDL Guidelines: <40 Undesirable 40-59 Borderline >59 Desirable Cholesterol in LDL [Mass/Vol] 102 mg/dL 0 - 130 mg/dL [facility] Comment on above: LDL Guidelines: <100 Desirable 100-129 Near to/above Desirable 130-159 Borderline >159 Undesirable Direct (measured) LDL and calculated LDL are not interchangeable tests. Cholesterol in VLDL [Mass/Vol] NOT REPORTED High 1 - 30 mg/dL [employer] Cholesterol.total/Ch olesterol in HDL [Mass ratio] 3.5 {ratio} <5 [facility] Interpretation and review of laboratory results Abnormal [employer] Triglyceride [Mass/Vol] 164 mg/dL High <150 [facility] Comment on above: Triglyceride Guidelines: <150 Desirable 150-199 Borderline 200-499 High >499 Very high Based on AHA Guidelines for fasting triglyceride, May 2012. [employer] Patient Fasting?on 1 Patient Fasting? yes [facility]th [facility] TSH with Reflexon 07-24-2021 TSH Qn 3.66 m[IU]/L [facility] [place] VL DUP LOWER EXTREMITY VENOU S LEFTOrdered By: Keo Amaya on 05-08-2021 Radiology exam is complete. No Radiologist dictation. Please follow up with ordering provider. [facility] Work Phone: [facility] Work Phone: Absolute lymphocyte counton 04-27-2021 Lymphocytes Auto (Unsp spec) [#/Vol] 1.24 10*3/uL 0.90-4.00 [facility] Work Phone: Basophil percentageon 2020 Basophils/100 WBC (Unsp spec) 0.0 % [facility] Work Phone: Blood hemoglobin measurement (mass/volume)on 04-27-2021 Hemoglobin (Bld) [Mass/Vol] 13.0 g/dL 12.0-16.0 [facility] Work Phone: Body fluid alanine aminotran sferase measurement (enzymatic activity/volume)on 04-27-2021 ALT (Body fld) [Catalytic activity/Vol] 46 U/L 14-65 [facility] Work Phone: CBC With Auto Diff.on 2020 Basophils (Bld) [#/Vol] 0.00 10*3/uL Normal 0.00-0.30 [facility] Comment on above: Order Comment: Criti elan Result called to and read back by MERON BEE RN of er on 04/23/2021 1:04 PM by Maru El. Performed By: #### I [id number] #### [facility] (DEFAULT) [address] [place], [place] [address] Basophils/100 WBC (Bld) 0.0 % Normal [facility] Comment on above: Order Comment: Criti elan Result called to and read back by MERON BEE RN of er on 04/23/2021 1:04 PM by Maru El. Performed By: #### I [id number] #### [facility] (DEFAULT) [address] [place], [place] [address] Eosinophils (Bld) [#/Vol] 0.00 10*3/uL Normal 0.00-0.50 [facility] Comment on above: Order Comment: Criti elan Result called to and read back by MERON BEE RN of er on 04/23/2021 1:04 PM by Maru El. Performed By: #### I [id number] #### [facility] (DEFAULT) [address] [place] [address] Eosinophils/100 WBC (Bld) 0.0 % Normal [facility] Comment on above: Order Comment: Criti elan Result called to and read back by MERON BEE RN of er on 04/23/2021 1:04 PM by Maru El. Performed By: #### I [id number] #### [facility] (DEFAULT) [address] [place] [phone] Erythrocyte distribution width (RBC) [Ratio] 12.9 % Normal 11.6-14.8 [facility] Comment on above: Order Comment: Criti elan Result called to and read back by MERON BEE RN of er on 04/23/2021 1:04 PM by Maru El. Performed By: #### I [id number] #### [facility] (DEFAULT) [address] [place] [address] Hematocrit (Bld) [Volume fraction] 37.9 % Normal 36.0-46.0 [facility] Comment on above: Order Comment: Criti elan Result called to and read back by MERON BEE RN of er on 04/23/2021 1:04 PM by Maru El. Performed By: #### I [id number] #### [facility] (DEFAULT) [address] [place] [address] Hemoglobin (Bld) [Mass/Vol] 13.0 g/dL Normal 12.0-16.0 [facility] Comment on above: Order Comment: Criti elan Result called to and read back by MERON BEE RN of er on 04/23/2021 1:04 PM by Maru El. Performed By: #### I [id number] #### [facility] (DEFAULT) [address] [place], [place] [address] Ig% 0.5 % Normal 0.0-4.0 [facility] Comment on above: Order Comment: Criti elan Result called to and read back by MERON BEE RN of er on 04/23/2021 1:04 PM by Maru El. Performed By: #### I [id number] #### [facility] (DEFAULT) [address] [place] [address] Lymphocytes (Bld) [#/Vol] 1.24 10*3/uL Normal 0.90-4.00 [facility] Comment on above: Order Comment: Criti elan Result called to and read back by MERON BEE RN of er on 04/23/2021 1:04 PM by Maru El. Performed By: #### I [id number] #### [facility] (DEFAULT) [address] [place] [address] Lymphocytes/100 WBC (Bld) 21.5 % Normal [facility] Comment on above: Order Comment: Criti elan Result called to and read back by MERON BEE RN of er on 04/23/2021 1:04 PM by Maru El. Performed By: #### I [id number] #### [facility] (DEFAULT) [address] [place] [address] MCH (RBC) [Entitic mass] 28.7 pg Normal 26.0-34.0 [facility] Comment on above: Order Comment: Criti elan Result called to and read back by MERON BEE RN of er on 04/23/2021 1:04 PM by Maru El. Performed By: #### I [id number] #### [facility] (DEFAULT) [address] [place] [id number] MCHC (RBC) [Mass/Vol] 34.3 g/dL Normal 31.0-37.0 [facility] Comment on above: Order Comment: Criti elan Result called to and read back by MERON BEE RN of er on 04/23/2021 1:04 PM by Maru El. Performed By: #### I [id number] #### [facility] (DEFAULT) [address] [place] [address] MCV (RBC) [Entitic vol] 84 fL Normal 80-100 [facility] Comment on above: Order Comment: Criti elna Result called to and read back by MERON BEE RN of er on 04/23/2021 1:04 PM by Maru El. Performed By: #### I [id number] #### [facility] (DEFAULT) [address] [place] [address] Monocytes (Bld) [#/Vol] 0.70 10*3/uL Normal 0.30-0.90 [facility] Comment on above: Order Comment: Criti elan Result called to and read back by MERON BEE RN of er on 04/23/2021 1:04 PM by Maru El. Performed By: #### I [id number] #### [facility] (DEFAULT) [address] [place] [address] Monocytes/100 WBC (Bld) 12.2 % Normal [facility] Comment on above: Order Comment: Criti elan Result called to and read back by MERON BEE RN of er on 04/23/2021 1:04 PM by Maru El. Performed By: #### I [id number] #### [facility] (DEFAULT) [address] [place] [address] Neutrophils (Bld) [#/Vol] 3.79 10*3/uL Normal 1.70-7.00 [facility] Comment on above: Order Comment: Criti elan Result called to and read back by MERON BEE RN of er on 04/23/2021 1:04 PM by Maru El. Performed By: #### I [id number] #### [facility] (DEFAULT) [address] [place] [address] Neutrophils/100 WBC (Bld) 65.8 % Normal [facility] Comment on above: Order Comment: Criti elan Result called to and read back by MERON BEE RN of er on 04/23/2021 1:04 PM by Maru El. Performed By: #### I [id number] #### [facility] (DEFAULT) [address] [place] [address] Platelet mean volume (Bld) [Entitic vol] 9.1 fL Normal 9.0-15.5 [facility] Comment on above: Order Comment: Criti elan Result called to and read back by MERON BEE RN of er on 04/23/2021 1:04 PM by Maru El. Performed By: #### I [id number] #### [facility] (DEFAULT) [address] [place] [address] Platelets (Bld) [#/Vol] 337 10*3/uL Normal 150-400 [facility] Comment on above: Order Comment: Criti elan Result called to and read back by MERON BEE RN of er on 04/23/2021 1:04 PM by Maru El. Performed By: #### I [id number] #### [facility] (DEFAULT) [address] [place] [phone] RBC (Bld) [#/Vol] 4.53 10*6/uL Normal 4.00-5.20 [place] Comment on above: Order Comment: Criti elan Result called to and read back by MERON BEE RN of er on 04/23/2021 1:04 PM by Maru El. Performed By: #### I [id number] #### [facility] (DEFAULT) [address] [place] [address] WBC (Bld) [#/Vol] 5.76 10*3/uL Normal 4.50-11.00 [facility] Comment on above: Order Comment: Criti elan Result called to and read back by MERON BEE RN of er on 04/23/2021 1:04 PM by Maru El. Performed By: #### I [id number] #### [facility] (DEFAULT) [address] [place] [phone] Calcium measurement (mass/vo lume)on 04-27-2021 Calcium (Unsp spec) [Mass/Vol] 8.4 mg/dL 8.0-10.2 [facility] Work Phone: Comprehensive Metabolic Pane nadia 04-27-2021 Albumin [Mass/Vol] 2.8 g/dL Low 3.2-4.5 [facility] Comment on above: Performed By: #### C OAGS #### [facility] (DEFAULT) [address], [place] [address] ALP [Catalytic activity/Vol] 81 U/L Normal 40-140 [facility] Comment on above: Performed By: #### C OAGS #### [facility] (DEFAULT) [address] [place] [address] ALT [Catalytic activity/Vol] 46 U/L Normal 14-65 [facility] Comment on above: Performed By: #### C OAGS #### [facility] (DEFAULT) [address] [place] [phone] Anion gap [Moles/Vol] 19 mmol/L Normal 10-20 [facility] Comment on above: Performed By: #### C OAGS #### [facility] (DEFAULT) [address] [place] [id number] AST [Catalytic activity/Vol] 12 U/L Normal 0-45 [facility] Comment on above: Performed By: #### C OAGS #### [facility] (DEFAULT) [address] [place] [address] 23459 Bilirubin [Mass/Vol] 0.4 mg/dL Normal 0.0-1.3 [facility] [place] Comment on above: Performed By: #### C OAGS #### [facility] (DEFAULT) [address] [place] [address] 84063 Calcium [Mass/Vol] 8.4 mg/dL Normal 8.0-10.2 [facility] Comment on above: Performed By: #### C OAGS #### [facility] (DEFAULT) [address] [place] [address] 33942 Chloride [Moles/Vol] 104 mmol/L Normal 98-108 [facility] [place] Comment on above: Performed By: #### C OAGS #### [facility] (DEFAULT) [address], [place] [address] CO2 [Moles/Vol] 18.0 mmol/L Low 21.0-32.0 [facility] Comment on above: Performed By: #### C OAGS #### [facility] (DEFAULT) [address] [place] [address] 67159 Creatinine [Mass/Vol] 0.6 mg/dL Normal 0.4-1.1 [facility] Comment on above: Performed By: #### C OAGS #### [facility] (DEFAULT) [address] [place] [address] 83659 GFR/1.73 sq M.predicted MDRD (S/P/Bld) [Vol rate/Area] 109 mL/min/{1.73_m2} Normal 60-1000 [facility] Comment on above: Result Comment: The eGFR should be used for monitoring renal function only and not for medication dosing. Performed By: #### C OAGS #### [facility] (DEFAULT) [address] [place] [address] 36410 Glucose [Mass/Vol] 164 mg/dL High 65-99 [facility] Comment on above: Performed By: #### C OAGS #### [facility] (DEFAULT) [address] [place] [address] 63021 Potassium [Moles/Vol] 3.8 mmol/L Normal 3.5-5.1 [facility] Comment on above: Performed By: #### C OAGS #### [facility] (DEFAULT) [address] [place] [address] 07709 Protein [Mass/Vol] 6.9 g/dL Normal 6.0-8.0 [facility] Comment on above: Performed By: #### C OAGS #### [facility] (DEFAULT) [address] [place] [address] 87163 Sodium [Moles/Vol] 137 mmol/L Normal 135-145 [facility] Comment on above: Performed By: #### C OAGS #### [facility] (DEFAULT) [address] [place], [place] [address] Urea nitrogen [Mass/Vol] 19 mg/dL Normal 8-25 [facility] Comment on above: Performed By: #### C OAGS #### [facility] (DEFAULT) [address] [place], [place] [address] Erythrocyte distribution wid th ratioon 04-27-2021 Erythrocyte distribution width (RBC) [Ratio] 12.9 % 11.6-14.8 [facility] Work Phone: Erythrocyte mean corpuscular hemoglobin concentration measurement (mass/volume)on 04-27-2021 MCHC (RBC) [Mass/Vol] 34.3 g/dL 31.0-37.0 [facility] Work Phone: HBV + HCV screenon MCH (RBC) [Entitic mass] 28.7 pg 26.0-34.0 [facility] Work Phone: MCV (RBC) [Entitic vol] 84 fL 80-100 [facility] Work Phone: Laboratory - Chemistry and C hemistry - challengeon 04-27-2021 ALP [Catalytic activity/Vol] 81 U/L 40-140 [facility] Work Phone: Anion gap [Moles/Vol] 19 mmol/L 10-20 [facility] Work Phone: CO2 [Moles/Vol] 18.0 mmol/L 21.0-32.0 [facility] Work Phone: GFR/1.73 sq M.predicted among non-blacks MDRD (S/P/Bld) [Vol rate/Area] 109 mL/min/{1.73_m2} 60-1000 [facility] Work Phone: Comment on above: Result Units: mL/min /1.81u0Pas eGFR should be used for monitoring renal function only and not for medication dosing. Laboratory - Hematology and Cell countson 04-27-2021 Basophils (Bld) [#/Vol] 0.00 10*3/uL 0.00-0.30 [facility] Work Phone: Hematocrit (Bld) [Volume fraction] 37.9 % 36.0-46.0 [facility] Work Phone: Immature granulocytes/100 WBC (Bld) 0.5 % 0.0-4.0 [facility] Work Phone: Neutrophils/100 WBC (Bld) 65.8 % [facility] Work Phone: RBC (Bld) [#/Vol] 4.53 10*6/uL 4.00-5.20 [place] Work Phone: Neutrophils Auto (Bld) [#/Vo l]on 04-27-2021 Neutrophils (Bld) [#/Vol] 3.79 10*3/uL 1.70-7.00 [facility] Work Phone: PCM.DCPLANon 04-27-[address] [facility] Patient: DELILAH MANCUSO DISCHARGE PLAN/ORDERS Admit Date: 04/23/21 /Age: 09 1980 Attending Physician: Júnior Valadez MD Med Rec #: [id number] - Problem Patient Problems: Current Active Problems Pneumonia due to COVID-19 virus (Acute) Reason for Discharge: Met goals for medical plan of care Condition at Discharge: Stable - Diet Diet Upon Discharge: ADA diet - Activity Activity Upon Discharge: As tolerated Discharge Disposition: Home Medications/Prescript ions: Aspirin 325 mg PO DAILY 30 Days #30 tablet Multivitamin/Iron/Fol ic Acid [Centrum Complete Multivit Tab] 1 each PO DAILY #30 tablet Dexamethasone [Decadron] 6 mg PO DAILY 5 Days #5 tablet levoFLOXacin [Levaquin] 500 mg PO DAILY 4 Days #4 tablet Ascorbic Acid [Vitamin C] 500 mg PO DAILY 30 Days #30 tablet Cholecalciferol [Vitamin D3] 1,000 unit PO DAILY 30 Days #30 tablet Discharge Medications: Home Medications Bisoprolol/Hydrochlor othiazide [Bisoprolol-Hctz 2.5-6.25 mg Tb] 1 tab PO DAILY 04/23/21 Empagliflozin [Jardiance] 10 mg PO DAILY 04/23/21 Guaifenesin/Dm/Pseudo ephedrine [Capmist Dm Tablet] 1 tab PO PRN 04/23/21 Lisinopril [Zestril] 20 mg PO DAILY 04/23/21 Metformin HCl 1,000 mg PO BID 04/23/21 Ascorbic Acid [Vitamin C] 500 mg PO DAILY 30 Days #30 tablet 04/27/21 Aspirin 325 mg PO DAILY 30 Days #30 tablet 04/27/21 Cholecalciferol [Vitamin D3] 1,000 unit PO DAILY 30 Days #30 tablet 04/27/21 Dexamethasone [Decadron] 6 mg PO DAILY 5 Days #5 tablet 04/27/21 Multivitamin/Iron/Fol ic Acid [Centrum Complete Multivit Tab] 1 each PO DAILY #30 tablet 04/27/21 levoFLOXacin [Levaquin] 500 mg PO DAILY 4 Days #4 tablet 04/27/21 Instructions: COVID-19 (Coronavirus Disease 2019) (DC) Referrals: MISC,DOCTOR [NON-STAFF] - Self quarantine/home isolation until 05/07/2021 Notify Physician: Notify your physician if: Your symptoms worsen or you get a temperature greater than 101F If you get chest pain go the emergency department CONGESTIVE HEART FAILURE PATIENTS - Weigh yourself daily If you gain 2lbs in one day or 5lbs in 2 days or get swelling in your legs or shortness of breath when lying flat notify your physician DIABETIC PATIENTS - Check your blood sugar before meals and at bedtime Record readings and take to your physician If your blood sugar is less than 80 or greater than 300, notify your physician Authenticated on: 04/27/21 [id number] -[id number] CC: Normal [facility] Platelet mean volume Auto (B ld) [Entitic vol]on 04-27-2021 Platelet mean volume (Bld) [Entitic vol] 9.1 fL 9.0-15.5 [facility] Work Phone: Platelets Auto (Bld) [#/Vol] on 09-09-2021 Platelets (Bld) [#/Vol] 337 10*3/uL 150-400 [facility] Work Phone: Serum or plasma albumin marce urement (mass/volume)on 04-27-2021 Albumin [Mass/Vol] 2.8 g/dL 3.2-4.5 [facility] Work Phone: Serum or plasma urea nitroge n measurement (mass/volume)on 04-27-2021 Urea nitrogen [Mass/Vol] 19 mg/dL 8-25 [facility] Work Phone: Trichomonas screenon 021 AST [Catalytic activity/Vol] 12 U/L 0-45 [facility] Work Phone: Bilirubin [Mass/Vol] 0.4 mg/dL 0.0-1.3 [facility] Work Phone: Chloride [Moles/Vol] 104 mmol/L 98-108 [facility] Work Phone: Creatinine [Mass/Vol] 0.6 mg/dL 0.4-1.1 [facility] Work Phone: Eosinophils (Bld) [#/Vol] 0.00 10*3/uL 0.00-0.50 [facility] Work Phone: Eosinophils/100 WBC (Bld) 0.0 % [facility] Work Phone: Glucose [Mass/Vol] 164 mg/dL 65-99 [facility] Work Phone: Lymphocytes/100 WBC (Bld) 21.5 % [facility] Work Phone: Monocytes (Bld) [#/Vol] 0.70 10*3/uL 0.30-0.90 [facility] Work Phone: Monocytes/100 WBC (Bld) 12.2 % [facility] Work Phone: Potassium [Moles/Vol] 3.8 mmol/L 3.5-5.1 [facility] Work Phone: Protein [Mass/Vol] 6.9 g/dL 6.0-8.0 [facility] Work Phone: Sodium [Moles/Vol] 137 mmol/L 135-145 [facility] Work Phone: WBC (Bld) [#/Vol] 5.76 10*3/uL 4.50-11.00 [place] Work Phone: Basophils Manual cnt (Bld) [ #/Vol]on 04-26-2021 Basophils/100 WBC (Bld) 0 % [facility] Work Phone: CBC With Auto Diff.on 2020 Erythrocyte distribution width (RBC) [Ratio] 13.1 % Normal 11.6-14.8 [facility] Comment on above: Order Comment: Regul atory Requirements State: Only Absolute Cell Counts are reported with their reference ranges. Performed By: #### C OAGS #### [facility] (DEFAULT) [address] [place] [address] 76275 Hematocrit (Bld) [Volume fraction] 36.9 % Normal 36.0-46.0 [facility] Comment on above: Order Comment: Regul atory Requirements State: Only Absolute Cell Counts are reported with their reference ranges. Performed By: #### C OAGS #### [facility] (DEFAULT) [address] [place] [address] 04841 Hemoglobin (Bld) [Mass/Vol] 12.7 g/dL Normal 12.0-16.0 [facility] Comment on above: Order Comment: Regul atory Requirements State: Only Absolute Cell Counts are reported with their reference ranges. Performed By: #### C OAGS #### [facility] (DEFAULT) [address] [place] [address] 34031 Ig% 0.4 % Normal 0.0-4.0 [facility] Comment on above: Order Comment: Regul atory Requirements State: Only Absolute Cell Counts are reported with their reference ranges. Performed By: #### C OAGS #### [facility] (DEFAULT) [address] [place] [address] 42522 MCH (RBC) [Entitic mass] 29.1 pg Normal 26.0-34.0 [facility] Comment on above: Order Comment: Regul atory Requirements State: Only Absolute Cell Counts are reported with their reference ranges. Performed By: #### C OAGS #### [facility] (DEFAULT) [address] [place] [address] 69164 MCHC (RBC) [Mass/Vol] 34.4 g/dL Normal 31.0-37.0 [facility] Comment on above: Order Comment: Regul atory Requirements State: Only Absolute Cell Counts are reported with their reference ranges. Performed By: #### C OAGS #### [facility] (DEFAULT) [address] [place] [address] 20147 MCV (RBC) [Entitic vol] 85 fL Normal 80-100 [facility] Comment on above: Order Comment: Regul atory Requirements State: Only Absolute Cell Counts are reported with their reference ranges. Performed By: #### C OAGS #### [facility] (DEFAULT) [address] [place] [address] 79996 Platelet mean volume (Bld) [Entitic vol] 9.4 fL Normal 9.0-15.5 [facility] Comment on above: Order Comment: Regul atory Requirements State: Only Absolute Cell Counts are reported with their reference ranges. Performed By: #### C OAGS #### [facility] (DEFAULT) [address] [place] [address] 70617 Platelets (Bld) [#/Vol] 313 10*3/uL Normal 150-400 [facility] Comment on above: Order Comment: Regul atory Requirements State: Only Absolute Cell Counts are reported with their reference ranges. Performed By: #### C OAGS #### [facility] (DEFAULT) [address] [place] [address] 27613 RBC (Bld) [#/Vol] 4.36 10*6/uL Normal 4.00-5.20 [place] Comment on above: Order Comment: Regul atory Requirements State: Only Absolute Cell Counts are reported with their reference ranges. Performed By: #### C OAGS #### [facility] (DEFAULT) [address], [place] [address] WBC (Bld) [#/Vol] 5.29 10*3/uL Normal 4.50-11.00 [facility] Comment on above: Order Comment: Regul atory Requirements State: Only Absolute Cell Counts are reported with their reference ranges. Performed By: #### C OAGS #### [facility] (DEFAULT) [address] [place] [address] 70214 Comprehensive Metabolic Pane nadia 04-26-2021 Albumin [Mass/Vol] 2.8 g/dL Low 3.2-4.5 [facility] Comment on above: Performed By: #### C MP #### [facility] (DEFAULT) [address] [place] [address] 90225 ALP [Catalytic activity/Vol] 88 U/L Normal 40-140 [facility] Comment on above: Performed By: #### C MP #### [facility] (DEFAULT) [address] [place] [address] 65598 ALT [Catalytic activity/Vol] 49 U/L Normal 14-65 [facility] Comment on above: Performed By: #### C MP #### [facility] (DEFAULT) [address] [place] [address] 37987 Anion gap [Moles/Vol] 19 mmol/L Normal 10-20 [facility] Comment on above: Performed By: #### C MP #### [facility] (DEFAULT) [address] [place] [address] 83119 AST [Catalytic activity/Vol] 14 U/L Normal 0-45 [facility] Comment on above: Performed By: #### C MP #### [facility] (DEFAULT) [address] [place] [address] 61842 Bilirubin [Mass/Vol] 0.4 mg/dL Normal 0.0-1.3 [facility] Comment on above: Performed By: #### C MP #### [facility] (DEFAULT) [address] [place] [address] 39202 Calcium [Mass/Vol] 8.6 mg/dL Normal 8.0-10.2 [facility] Comment on above: Performed By: #### C MP #### [facility] (DEFAULT) [address] [place], [place] [address] Chloride [Moles/Vol] 105 mmol/L Normal 98-108 [facility] Comment on above: Performed By: #### C MP #### [facility] (DEFAULT) [address] [place] [address] 90223 CO2 [Moles/Vol] 16.0 mmol/L Low 21.0-32.0 [facility] Comment on above: Performed By: #### C MP #### [facility] (DEFAULT) [address] [place] [address] 80771 Creatinine [Mass/Vol] 0.6 mg/dL Normal 0.4-1.1 [facility] Comment on above: Performed By: #### C MP #### [facility] (DEFAULT) [address] [place] [address] 77003 GFR/1.73 sq M.predicted MDRD (S/P/Bld) [Vol rate/Area] 118 mL/min/{1.73_m2} Normal 60-1000 [facility] Comment on above: Result Comment: The eGFR should be used for monitoring renal function only and not for medication dosing. Performed By: #### C MP #### [facility] (DEFAULT) [address] [place] [address] 95703 Glucose [Mass/Vol] 168 mg/dL High 65-99 [facility] Comment on above: Performed By: #### C MP #### [facility] (DEFAULT) [address], [place] [address] Potassium [Moles/Vol] 3.9 mmol/L Normal 3.5-5.1 [facility] Comment on above: Performed By: #### C MP #### [facility] (DEFAULT) [address], [place] [address] Protein [Mass/Vol] 6.8 g/dL Normal 6.0-8.0 [facility] Comment on above: Performed By: #### C MP #### [facility] (DEFAULT) [address], [place] [address] Sodium [Moles/Vol] 136 mmol/L Normal 135-145 [facility] Comment on above: Performed By: #### C MP #### [facility] (DEFAULT) [address], [place] [address] Urea nitrogen [Mass/Vol] 19 mg/dL Normal 8-25 [facility] Comment on above: Performed By: #### C MP #### [facility] (DEFAULT) [address], [place] [address] Eosinophils Manual cnt (Bld) [#/Vol]on 04-26-2021 Eosinophils/100 WBC (Bld) 0 % [facility] Work Phone: HBV + HCV screenon Monocytes/100 WBC (Bld) 7 % [facility] Work Phone: Lymphocytes Manual cnt (Bld) [#/Vol]on 04-26-2021 Lymphocytes/100 WBC (Bld) 27 % [facility] Work Phone: Manual Differential.on 04-26 Baso 0 % Normal [facility] Comment on above: Order Comment: Two a typical lymphocytes seen in slide. Performed By: #### M DIFF1 #### [facility] (DEFAULT) [address], [place] [address] BASO# 0.00 X10E3/UL Normal 0.00-0.15 [facility] Comment on above: Order Comment: Two a typical lymphocytes seen in slide. Performed By: #### M DIFF1 #### [facility] (DEFAULT) [address], [place] [address] Blasts 0 % Normal 0-0 [facility] Comment on above: Order Comment: Two a typical lymphocytes seen in slide. Performed By: #### M DIFF1 #### [facility] (DEFAULT) [address] [place] [address] 65369 Blasts# 0.00 Normal 0.00-0.00 [facility] Comment on above: Order Comment: Two a typical lymphocytes seen in slide. Performed By: #### M DIFF1 #### [facility] (DEFAULT) [address] [place] [address] EOS 0 % Normal [facility] Comment on above: Order Comment: Two a typical lymphocytes seen in slide. Performed By: #### M DIFF1 #### [facility] (DEFAULT) [address] [place] [address] EOS# 0.00 X10E3/UL Normal 0.00-0.70 [facility] Comment on above: Order Comment: Two a typical lymphocytes seen in slide. Performed By: #### M DIFF1 #### [facility] (DEFAULT) [address] [place] [address] LYM# 1.43 X10E3/UL Normal 1.10-4.40 [facility] Comment on above: Order Comment: Two a typical lymphocytes seen in slide. Performed By: #### M DIFF1 #### [facility] (DEFAULT) [address] [place] [address] Lymphocytes 27 % Normal [facility] Comment on above: Order Comment: Two a typical lymphocytes seen in slide. Performed By: #### M DIFF1 #### [facility] (DEFAULT) [address] [place] [address] [place]# 0.00 X10E3/UL Low 1.50-7.50 [facility] Comment on above: Order Comment: Two a typical lymphocytes seen in slide. Performed By: #### M DIFF1 #### [facility] (DEFAULT) [address] [place] [address] Metamyelocytes 0 % Normal 0-0 [facility] Comment on above: Order Comment: Two a typical lymphocytes seen in slide. Performed By: #### M DIFF1 #### [facility] (DEFAULT) [address] [place] [address] MONO# 0.37 X10E3/UL Normal 0.20-0.95 [facility] Comment on above: Order Comment: Two a typical lymphocytes seen in slide. Performed By: #### M DIFF1 #### [facility] (DEFAULT) [address] [place] [address] 16588 Monocytes 7 % Normal [facility] Comment on above: Order Comment: Two a typical lymphocytes seen in slide. Performed By: #### M DIFF1 #### [facility] (DEFAULT) [address] [place] [address] 23096 MYELO 0.00 % Normal 0.00-0.00 [facility] Comment on above: Order Comment: Two a typical lymphocytes seen in slide. Performed By: #### M DIFF1 #### [facility] (DEFAULT) [address] [place] [address] 93619 NEUT# 3.49 X10E3/UL Normal 1.50-7.50 [facility] Comment on above: Order Comment: Two a typical lymphocytes seen in slide. Performed By: #### M DIFF1 #### [facility] (DEFAULT) [address] [place] [address] 43805 Neutrophils 66 % Normal [facility] Comment on above: Order Comment: Two a typical lymphocytes seen in slide. Performed By: #### M DIFF1 #### [facility] (DEFAULT) [address] [place] [address] 80946 NRBC 0 /100wbc Normal [facility] Comment on above: Order Comment: Two a typical lymphocytes seen in slide. Performed By: #### M DIFF1 #### [facility] (DEFAULT) [address] [place] [address] 00088 Manual body fluid myelocytes count (number/volume)on 04-26-2021 Myelocytes Manual cnt (Body fld) [#/Vol] 0.00 % 0.00-0.00 [facility] Work Phone: Metamyelocytes/100 WBC Manua l cnt (Bld)on 04-26-2021 Metamyelocytes/100 WBC (Bld) 0 % 0-0 [facility] Work Phone: Neutrophils Auto (Bld) [#/Vo l]on 04-26-2021 Neutrophils/100 WBC (Bld) 66 % [facility] Work Phone: No Panel Informationon 04-26 Nucleated Red Blood Cells 0 /100wbc [facility] Work Phone: Basic Metabolic panelon Anion gap [Moles/Vol] 19 mmol/L Normal 10-20 [facility] Comment on above: Performed By: #### B MP #### [facility] (DEFAULT) [address], [place] [address] Calcium [Mass/Vol] 8.4 mg/dL Normal 8.0-10.2 [facility] Comment on above: Performed By: #### B MP #### [facility] (DEFAULT) [address] [place] [address] 71094 Chloride [Moles/Vol] 107 mmol/L Normal 98-108 [facility] Comment on above: Performed By: #### B MP #### [facility] (DEFAULT) [address] [place] [address] 41601 CO2 [Moles/Vol] 14.0 mmol/L Low 21.0-32.0 [facility] Comment on above: Performed By: #### B MP #### [facility] (DEFAULT) [address] [place] [address] 63647 Creatinine [Mass/Vol] 0.7 mg/dL Normal 0.4-1.1 [facility] Comment on above: Performed By: #### B MP #### [facility] (DEFAULT) [address] [place] [address] 58527 GFR/1.73 sq M.predicted MDRD (S/P/Bld) [Vol rate/Area] 92 mL/min/{1.73_m2} Normal 60-1000 [facility] Comment on above: Result Comment: The eGFR should be used for monitoring renal function only and not for medication dosing. Performed By: #### B MP #### [facility] (DEFAULT) [address], [place] [address] Glucose [Mass/Vol] 158 mg/dL High 65-99 [facility] Comment on above: Performed By: #### B MP #### [facility] (DEFAULT) [address], [place] [address] Potassium [Moles/Vol] 4.1 mmol/L Normal 3.5-5.1 [facility] Comment on above: Performed By: #### B MP #### [facility] (DEFAULT) [address] [place] [address] 81776 Sodium [Moles/Vol] 136 mmol/L Normal 135-145 [facility] Comment on above: Performed By: #### B MP #### [facility] (DEFAULT) [address] [place] [address] 12879 Urea nitrogen [Mass/Vol] 20 mg/dL Normal 8-25 [facility] Comment on above: Performed By: #### B MP #### [facility] (DEFAULT) [address] [place] [address] 83526 CBC With Auto Diff.on 2020 Erythrocyte distribution width (RBC) [Ratio] 13.8 % Normal 11.6-14.8 [facility] Comment on above: Order Comment: Criti elan Result called to and read back by MERON BEE RN of er on 04/23/2021 1:04 PM by Maru El. Performed By: #### I [id number] #### [facility] (DEFAULT) [address] [place] [address] 06195 Hematocrit (Bld) [Volume fraction] 41.0 % Normal 36.0-46.0 [facility] Comment on above: Order Comment: Criti elan Result called to and read back by MERON BEE RN of er on 04/23/2021 1:04 PM by Maru El. Performed By: #### I [id number] #### [facility] (DEFAULT) [address] [place] [address] 73361 Hemoglobin (Bld) [Mass/Vol] 13.6 g/dL Normal 12.0-16.0 [facility] Comment on above: Order Comment: Criti elan Result called to and read back by MERON BEE RN of er on 04/23/2021 1:04 PM by Maru El. Performed By: #### I [id number] #### [facility] (DEFAULT) [address] [place] [address] 31435 Ig% 0.2 % Normal 0.0-4.0 [facility] Comment on above: Order Comment: Criti elan Result called to and read back by MERON BEE RN of er on 04/23/2021 1:04 PM by Maru El. Performed By: #### I [id number] #### [facility] (DEFAULT) [address] [place] [address] 19279 MCH (RBC) [Entitic mass] 28.7 pg Normal 26.0-34.0 [facility] Comment on above: Order Comment: Criti elan Result called to and read back by MERON BEE RN of er on 04/23/2021 1:04 PM by Maru El. Performed By: #### I [id number] #### [facility] (DEFAULT) [address] [place] [address] 51377 MCHC (RBC) [Mass/Vol] 33.2 g/dL Normal 31.0-37.0 [facility] Comment on above: Order Comment: Criti elan Result called to and read back by MERON BEE RN of er on 04/23/2021 1:04 PM by Maru El. Performed By: #### I [id number] #### [facility] (DEFAULT) [address] [place] [address] 30703 MCV (RBC) [Entitic vol] 87 fL Normal 80-100 [facility] Comment on above: Order Comment: Criti elan Result called to and read back by MERON BEE RN of er on 04/23/2021 1:04 PM by Maru El. Performed By: #### I [id number] #### [facility] (DEFAULT) [address] [place] [address] 69009 Platelet mean volume (Bld) [Entitic vol] 9.9 fL Normal 9.0-15.5 [facility] Comment on above: Order Comment: Criti elan Result called to and read back by MERON BEE RN of er on 04/23/2021 1:04 PM by Maru El. Performed By: #### I [id number] #### [facility] (DEFAULT) [address] [place] [address] 21841 Platelets (Bld) [#/Vol] 255 10*3/uL Normal 150-400 [facility] [facility] Comment on above: Order Comment: Criti elan Result called to and read back by MERON BEE RN of er on 04/23/2021 1:04 PM by Maru El. Performed By: #### I [id number] #### [facility] (DEFAULT) [address] [place] [address] 93876 RBC (Bld) [#/Vol] 4.74 10*6/uL Normal 4.00-5.20 [place] Comment on above: Order Comment: Criti elan Result called to and read back by MERON BEE RN of er on 04/23/2021 1:04 PM by Maru El. Performed By: #### I [id number] #### [facility] (DEFAULT) [address] [place] [address] 27736 WBC (Bld) [#/Vol] 4.80 10*3/uL Normal 4.50-11.00 [place] Comment on above: Order Comment: Criti elan Result called to and read back by MERON BEE RN of er on 04/23/2021 1:04 PM by Maru El. Performed By: #### I [id number] #### [facility] (DEFAULT) [address] [place] [address] 72607 Manual Differential.on 04-25 Baso 0 % Normal [facility] Comment on above: Order Comment: Three atypical lymphocytes seen in smear. Performed By: #### M DIFF1 #### [facility] (DEFAULT) [address] [place] [address] 91512 BASO# 0.00 X10E3/UL Normal 0.00-0.15 [facility] Comment on above: Order Comment: Three atypical lymphocytes seen in smear. Performed By: #### M DIFF1 #### [facility] (DEFAULT) [address] [place] [address] 48235 Blasts 0 % Normal 0-0 [facility] Comment on above: Order Comment: Three atypical lymphocytes seen in smear. Performed By: #### M DIFF1 #### [facility] (DEFAULT) [address] [place] [address] 54439 Blasts# 0.00 Normal 0.00-0.00 [facility] Comment on above: Order Comment: Three atypical lymphocytes seen in smear. Performed By: #### M DIFF1 #### [facility] (DEFAULT) [address] [place] [address] EOS 0 % Normal [facility] Comment on above: Order Comment: Three atypical lymphocytes seen in smear. Performed By: #### M DIFF1 #### [facility] (DEFAULT) [address] [place] [address] 74922 EOS# 0.00 X10E3/UL Normal 0.00-0.70 [facility] Comment on above: Order Comment: Three atypical lymphocytes seen in smear. Performed By: #### M DIFF1 #### [facility] (DEFAULT) [address] [place] [address] 91200 LYM# 1.01 X10E3/UL Low 1.10-4.40 [facility] Comment on above: Order Comment: Three atypical lymphocytes seen in smear. Performed By: #### M DIFF1 #### [facility] (DEFAULT) [address] [place] [address] 62896 Lymphocytes 21 % Normal [facility] Comment on above: Order Comment: Three atypical lymphocytes seen in smear. Performed By: #### M DIFF1 #### [facility] (DEFAULT) [address] [place] [address] 19306 [place]# 0.00 X10E3/UL Low 1.50-7.50 [facility] Comment on above: Order Comment: Three atypical lymphocytes seen in smear. Performed By: #### M DIFF1 #### [facility] (DEFAULT) [address], [place] [address] Metamyelocytes 0 % Normal 0-0 [facility] Comment on above: Order Comment: Three atypical lymphocytes seen in smear. Performed By: #### M DIFF1 #### [facility] (DEFAULT) [address], [place] [address] MONO# 0.38 X10E3/UL Normal 0.20-0.95 [facility] Comment on above: Order Comment: Three atypical lymphocytes seen in smear. Performed By: #### M DIFF1 #### [facility] (DEFAULT) [address] [place] [address] 80599 Monocytes 8 % Normal [facility] Comment on above: Order Comment: Three atypical lymphocytes seen in smear. Performed By: #### M DIFF1 #### [facility] (DEFAULT) [address] [place] [address] 66528 MYELO 0.00 % Normal 0.00-0.00 [facility] Comment on above: Order Comment: Three atypical lymphocytes seen in smear. Performed By: #### M DIFF1 #### [facility] (DEFAULT) [address] [place] [address] 14004 NEUT# 3.41 X10E3/UL Normal 1.50-7.50 [facility] Comment on above: Order Comment: Three atypical lymphocytes seen in smear. Performed By: #### M DIFF1 #### [facility] (DEFAULT) [address] [place] [address] 15461 Neutrophils 71 % Normal [facility] Comment on above: Order Comment: Three atypical lymphocytes seen in smear. Performed By: #### M DIFF1 #### [facility] (DEFAULT) [address] [place] [address] 16667 NRBC 0 /100wbc Normal [facility] Comment on above: Order Comment: Three atypical lymphocytes seen in smear. Performed By: #### M DIFF1 #### [facility] (DEFAULT) [address] [place] [address] 12117 Basic Metabolic panelon 09-0 Anion gap [Moles/Vol] 20 mmol/L Normal 10-20 [facility] Comment on above: Performed By: #### B MP #### [facility] (DEFAULT) [address] [place] [address] 84884 Calcium [Mass/Vol] 8.4 mg/dL Normal 8.0-10.2 [facility] Comment on above: Performed By: #### B MP #### [facility] (DEFAULT) [address] [place] [address] 53473 Chloride [Moles/Vol] 107 mmol/L Normal 98-108 [facility] Comment on above: Performed By: #### B MP #### [facility] (DEFAULT) [address] [place] [address] 57175 CO2 [Moles/Vol] 15.0 mmol/L Low 21.0-32.0 [facility] Comment on above: Performed By: #### B MP #### [facility] (DEFAULT) [address] [place] [address] 57285 Creatinine [Mass/Vol] 0.6 mg/dL Normal 0.4-1.1 [facility] Comment on above: Performed By: #### B MP #### [facility] (DEFAULT) [address] [place] [address] 38950 GFR/1.73 sq M.predicted MDRD (S/P/Bld) [Vol rate/Area] 113 mL/min/{1.73_m2} Normal 60-1000 [facility] Comment on above: Result Comment: The eGFR should be used for monitoring renal function only and not for medication dosing. Performed By: #### B MP #### [facility] (DEFAULT) [address] [place] [address] 42444 Glucose [Mass/Vol] 122 mg/dL High 65-99 [facility] Comment on above: Performed By: #### B MP #### [facility] (DEFAULT) [address] [place] [address] 32158 Potassium [Moles/Vol] 4.3 mmol/L Normal 3.5-5.1 [facility] Comment on above: Performed By: #### B MP #### [facility] (DEFAULT) [address], [place] [address] Sodium [Moles/Vol] 138 mmol/L Normal 135-145 [facility] Comment on above: Performed By: #### B MP #### [facility] (DEFAULT) [address], [place] [address] Urea nitrogen [Mass/Vol] 17 mg/dL Normal 8-25 [facility] Comment on above: Performed By: #### B MP #### [facility] (DEFAULT) [address], [place] [address] CBC With Auto Diff.on 2020 Erythrocyte distribution width (RBC) [Ratio] 13.7 % Normal 11.6-14.8 [facility] Comment on above: Order Comment: Regul atory Requirements State: Only Absolute Cell Counts are reported with their reference ranges. Performed By: #### C OAGS #### [facility] (DEFAULT) [address] [place] [address] 69021 Hematocrit (Bld) [Volume fraction] 37.9 % Normal 36.0-46.0 [facility] Comment on above: Order Comment: Regul atory Requirements State: Only Absolute Cell Counts are reported with their reference ranges. Performed By: #### C OAGS #### [facility] (DEFAULT) [address] [place] [address] 37654 Hemoglobin (Bld) [Mass/Vol] 12.6 g/dL Normal 12.0-16.0 [facility] Comment on above: Order Comment: Regul atory Requirements State: Only Absolute Cell Counts are reported with their reference ranges. Performed By: #### C OAGS #### [facility] (DEFAULT) [address] [place] [address] 31809 Ig% 0.5 % Normal 0.0-4.0 [facility] Comment on above: Order Comment: Regul atory Requirements State: Only Absolute Cell Counts are reported with their reference ranges. Performed By: #### C OAGS #### [facility] (DEFAULT) [address], [place] [address] MCH (RBC) [Entitic mass] 28.8 pg Normal 26.0-34.0 [facility] Comment on above: Order Comment: Regul atory Requirements State: Only Absolute Cell Counts are reported with their reference ranges. Performed By: #### C OAGS #### [facility] (DEFAULT) [address] [place] [address] 34456 MCHC (RBC) [Mass/Vol] 33.2 g/dL Normal 31.0-37.0 [facility] Comment on above: Order Comment: Regul atory Requirements State: Only Absolute Cell Counts are reported with their reference ranges. Performed By: #### C OAGS #### [facility] (DEFAULT) [address] [place] [address] 94745 MCV (RBC) [Entitic vol] 87 fL Normal 80-100 [facility] Comment on above: Order Comment: Regul atory Requirements State: Only Absolute Cell Counts are reported with their reference ranges. Performed By: #### C OAGS #### [facility] (DEFAULT) [address] [place] [address] 59690 Platelet mean volume (Bld) [Entitic vol] 9.8 fL Normal 9.0-15.5 [facility] Comment on above: Order Comment: Regul atory Requirements State: Only Absolute Cell Counts are reported with their reference ranges. Performed By: #### C OAGS #### [facility] (DEFAULT) [address] [place] [address] 75254 Platelets (Bld) [#/Vol] 241 10*3/uL Normal 150-400 [facility] Comment on above: Order Comment: Regul atory Requirements State: Only Absolute Cell Counts are reported with their reference ranges. Performed By: #### C OAGS #### [facility] (DEFAULT) [address] [place] [address] 83310 RBC (Bld) [#/Vol] 4.37 10*6/uL Normal 4.00-5.20 [place] Comment on above: Order Comment: Regul atory Requirements State: Only Absolute Cell Counts are reported with their reference ranges. Performed By: #### C OAGS #### [facility] (DEFAULT) [address], [place] [address] WBC (Bld) [#/Vol] 4.30 10*3/uL Low 4.50-11.00 [place] Comment on above: Order Comment: Regul atory Requirements State: Only Absolute Cell Counts are reported with their reference ranges. Performed By: #### C OAGS #### [facility] (DEFAULT) [address], [place] [address] D-Dimer Quantitativeon 04-24 D-Dimer Quantitative >5000.0 High 6.0-450.0 [facility] Comment on above: Result Comment: A D- Dimer concentration of <450 ng/mL FEU is considered a low probability for pulmonary embolism (PE) and deep venous thrombosis (DVT). Results of this test should be interpreted in conjunction with the patient's medical history and clinical findings. Diagnosis should not be based on the results of the D-dimer alone. The range associated with other clinical conditions (e.g. sepsis) has not been validated for this method. 90% of normal patients are less than 400 ng/ml. Performed By: #### C OAGS #### [facility] (DEFAULT) [address], [place] [address] HBV + HCV screenon HBV + HCV screen >5000.0 ng/mL FEU 6.0-450.0 [facility] Work Phone: Comment on above: A D-Dimer concentrat ion of <450 ng/mL FEU is considered a low probability for pulmonary embolism (PE) and deep venous thrombosis (DVT). Results of this test should be interpreted in conjunction with the patient's medical history and clinical findings. Diagnosis should not be based on the results of the D-dimer alone. The range associated with other clinical conditions (e.g. sepsis) has not been validated for this method. 90% of normal patients are less than 400 ng/ml. Manual Differential.on 04-24 Baso 0 % Normal [facility] Comment on above: Performed By: #### M DIFF1 #### [facility] (DEFAULT) [address] [place] [address] BASO# 0.00 X10E3/UL Normal 0.00-0.15 [facility] Comment on above: Performed By: #### M DIFF1 #### [facility] (DEFAULT) [address] [place] [address] Blasts 0 % Normal 0-0 [facility] Comment on above: Performed By: #### M DIFF1 #### [facility] (DEFAULT) [address] [place] [address] Blasts# 0.00 Normal 0.00-0.00 [facility] Comment on above: Performed By: #### M DIFF1 #### [facility] (DEFAULT) [address] [place] [address] EOS 0 % Normal [facility] Comment on above: Performed By: #### M DIFF1 #### [facility] (DEFAULT) [address] [place] [address] EOS# 0.00 X10E3/UL Normal 0.00-0.70 [facility] Comment on above: Performed By: #### M DIFF1 #### [facility] (DEFAULT) [address] [place] [address] LYM# 0.82 X10E3/UL Low 1.10-4.40 [facility] Comment on above: Performed By: #### M DIFF1 #### [facility] (DEFAULT) [address] [place] [address] Lymphocytes 19 % Normal [facility] Comment on above: Performed By: #### M DIFF1 #### [facility] (DEFAULT) [address] [place] [address] [place]# 0.00 X10E3/UL Low 1.50-7.50 [facility] Comment on above: Performed By: #### M DIFF1 #### [facility] (DEFAULT) [address] [place] [address] Metamyelocytes 0 % Normal 0-0 [facility] Comment on above: Performed By: #### M DIFF1 #### [facility] (DEFAULT) [address], [place] [address] MONO# 0.39 X10E3/UL Normal 0.20-0.95 [facility] Comment on above: Performed By: #### M DIFF1 #### [facility] (DEFAULT) [address], [place] [address] Monocytes 9 % Normal [facility] Comment on above: Performed By: #### M DIFF1 #### [facility] (DEFAULT) [address] [place] [address] MYELO 0.00 % Normal 0.00-0.00 [facility] Comment on above: Performed By: #### M DIFF1 #### [facility] (DEFAULT) [address] [place] [address] NEUT# 3.10 X10E3/UL Normal 1.50-7.50 [facility] Comment on above: Performed By: #### M DIFF1 #### [facility] (DEFAULT) [address] [place] [address] 02689 Neutrophils 72 % Normal [facility] Comment on above: Performed By: #### M DIFF1 #### [facility] (DEFAULT) [address] [place] [address] NRBC 0 /100wbc Normal [facility] Comment on above: Performed By: #### M DIFF1 #### [facility] (DEFAULT) [address] [place] [address] 26522 Blood INR by coagulation ass ishmael 04-23-2021 INR Coag (Bld) [Relative time] 0.89 {INR} 0.90-1.20 [facility] Work Phone: Comment on above: Therapeutic range of an INR is 2.0 - 3.0.Prosthetic Valves: 2.5-3.5An INR >5.0 is considered critical. Blood activated partial thro mboplastin time (aPTT) by coagulation assayon 04-23-2021 aPTT Coag (Bld) [Time] 26.5 s 21.9-33.8 [facility] Work Phone: Blood prothrombin time (PT) by coagulation assayon 04-23-2021 PT Coag (Bld) [Time] 9.7 s 8.7-11.4 [facility] Work Phone: Bloodcultureon 04-23-2021 Bacteria identified Cx Nom (Bld) Wili al Result called to and read back by Rena toledo RN of [facility] on 04/24/2021 7:42 PM by Anum Yip Blood Culture Specimen Type: BLOOD Blood Culture Set: First set drawn of two sets ordered Blood Culture Collection Site: RIGHT AC Blood Culture Specimen Source: LINE VENOUS Blood Culture Specimen Type: BLOOD Blood Culture Set: First set drawn of two sets ordered Blood Culture Collection Site: RIGHT AC Blood Culture Specimen Source: LINE VENOUS Blood Culture Set:: First set drawn of two sets ordered Blood Culture Site:: RIGHT AC BLOOD CULTURE: STAPHYLOCOCCUS HOMINIS A Testi g Performed At: [facility] [address] [place] [address] Staphylococcus hominis Sets Positive [1] of [2] GRAM STAIN RESULT BC: Gram Positive Cocci in clusters A Testi g Performed At: [facility] [address] [place] [address] Sets Positive [1] of [2] [facility] Comment on above: Performed By: #### C OAGS #### [facility] (DEFAULT) [address] [place] [address] Bloodculture Second Seton Bloodculture Second Set Blood Culture Specimen Type: BLOOD Blood Culture Specimen Source: LINE VENOUS Blood Culture Collection Site: LEFT AC Blood Culture Set: Second set drawn of two sets ordered Blood Culture Specimen Type: BLOOD Blood Culture Specimen Source: LINE VENOUS Blood Culture Collection Site: LEFT AC Blood Culture Set: Second set drawn of two sets ordered Blood Culture Set:: Second set drawn of two sets ordered Blood Culture Site:: LEFT AC BLOOD CULTURE: No Growth After 5 Days Testi g Performed At: [facility] [address] [place] [address] Comment on above: Performed By: #### C OAGS #### [facility] (DEFAULT) [address], [place] [address] CBC With Auto Diff.on 2020 Basophils (Bld) [#/Vol] 0.01 10*3/uL Normal 0.00-0.30 [facility] Comment on above: Order Comment: Regul atory Requirements State: Only Absolute Cell Counts are reported with their reference ranges. Performed By: #### C BC #### [facility] (DEFAULT) [address] [place] [address] 53631 Basophils/100 WBC (Bld) 0.2 % Normal [facility] Comment on above: Order Comment: Regul atory Requirements State: Only Absolute Cell Counts are reported with their reference ranges. Performed By: #### C BC #### [facility] (DEFAULT) [address] [place] [address] 17599 Eosinophils (Bld) [#/Vol] 0.00 10*3/uL Normal 0.00-0.50 [facility] Comment on above: Order Comment: Regul atory Requirements State: Only Absolute Cell Counts are reported with their reference ranges. Performed By: #### C BC #### [facility] (DEFAULT) [address] [place] [address] 43746 Eosinophils/100 WBC (Bld) 0.0 % Normal [facility] Comment on above: Order Comment: Regul atory Requirements State: Only Absolute Cell Counts are reported with their reference ranges. Performed By: #### C BC #### [facility] (DEFAULT) [address] [place] [address] 59623 Erythrocyte distribution width (RBC) [Ratio] 13.8 % Normal 11.6-14.8 [facility] Comment on above: Order Comment: Regul atory Requirements State: Only Absolute Cell Counts are reported with their reference ranges. Performed By: #### C BC #### [facility] (DEFAULT) [address] [place] [address] 84930 Hematocrit (Bld) [Volume fraction] 40.5 % Normal 36.0-46.0 [facility] Comment on above: Order Comment: Regul atory Requirements State: Only Absolute Cell Counts are reported with their reference ranges. Performed By: #### C BC #### [facility] (DEFAULT) [address], [place] [address] Hemoglobin (Bld) [Mass/Vol] 13.3 g/dL Normal 12.0-16.0 [facility] Comment on above: Order Comment: Regul atory Requirements State: Only Absolute Cell Counts are reported with their reference ranges. Performed By: #### C BC #### [facility] (DEFAULT) [address] [place] [address] 16562 Ig% 0.3 % Normal 0.0-4.0 [facility] Comment on above: Order Comment: Regul atory Requirements State: Only Absolute Cell Counts are reported with their reference ranges. Performed By: #### C BC #### [facility] (DEFAULT) [address] [place] [address] 84347 Lymphocytes (Bld) [#/Vol] 1.20 10*3/uL Normal 0.90-4.00 [facility] Comment on above: Order Comment: Regul atory Requirements State: Only Absolute Cell Counts are reported with their reference ranges. Performed By: #### C BC #### [facility] (DEFAULT) [address] [place] [address] 78334 Lymphocytes/100 WBC (Bld) 19.5 % Normal [facility] Comment on above: Order Comment: Regul atory Requirements State: Only Absolute Cell Counts are reported with their reference ranges. Performed By: #### C BC #### [facility] (DEFAULT) [address] [place] [address] 35055 MCH (RBC) [Entitic mass] 28.9 pg Normal 26.0-34.0 [facility] Comment on above: Order Comment: Regul atory Requirements State: Only Absolute Cell Counts are reported with their reference ranges. Performed By: #### C BC #### [facility] (DEFAULT) [address] [place] [address] 24758 MCHC (RBC) [Mass/Vol] 32.8 g/dL Normal 31.0-37.0 [facility] Comment on above: Order Comment: Regul atory Requirements State: Only Absolute Cell Counts are reported with their reference ranges. Performed By: #### C BC #### [facility] (DEFAULT) [address] [place] [address] 30022 MCV (RBC) [Entitic vol] 88 fL Normal 80-100 [facility] Comment on above: Order Comment: Regul atory Requirements State: Only Absolute Cell Counts are reported with their reference ranges. Performed By: #### C BC #### [facility] (DEFAULT) [address] [place] [address] 67605 Monocytes (Bld) [#/Vol] 0.28 10*3/uL Low 0.30-0.90 [facility] Comment on above: Order Comment: Regul atory Requirements State: Only Absolute Cell Counts are reported with their reference ranges. Performed By: #### C BC #### [facility] (DEFAULT) [address] [place] [address] 94822 Monocytes/100 WBC (Bld) 4.5 % Normal [facility] Comment on above: Order Comment: Regul atory Requirements State: Only Absolute Cell Counts are reported with their reference ranges. Performed By: #### C BC #### [facility] (DEFAULT) [address] [place] [address] 23151 Neutrophils (Bld) [#/Vol] 4.65 10*3/uL Normal 1.70-7.00 [facility] Comment on above: Order Comment: Regul atory Requirements State: Only Absolute Cell Counts are reported with their reference ranges. Performed By: #### C BC #### [facility] (DEFAULT) [address] [place] [address] 66391 Neutrophils/100 WBC (Bld) 75.5 % Normal [facility] Comment on above: Order Comment: Regul atory Requirements State: Only Absolute Cell Counts are reported with their reference ranges. Performed By: #### C BC #### [facility] (DEFAULT) [address] [place] [address] 45721 Platelet mean volume (Bld) [Entitic vol] 9.5 fL Normal 9.0-15.5 [facility] Comment on above: Order Comment: Regul atory Requirements State: Only Absolute Cell Counts are reported with their reference ranges. Performed By: #### C BC #### [facility] (DEFAULT) [address] [place] [address] 75285 Platelets (Bld) [#/Vol] 202 10*3/uL Normal 150-400 [facility] Comment on above: Order Comment: Regul atory Requirements State: Only Absolute Cell Counts are reported with their reference ranges. Performed By: #### C BC #### [facility] (DEFAULT) [address] [place] [address] 04970 RBC (Bld) [#/Vol] 4.61 10*6/uL Normal 4.00-5.20 [place] Comment on above: Order Comment: Regul atory Requirements State: Only Absolute Cell Counts are reported with their reference ranges. Performed By: #### C BC #### [facility] (DEFAULT) [address] [place] [address] 89465 WBC (Bld) [#/Vol] 6.16 10*3/uL Normal 4.50-11.00 [place] Comment on above: Order Comment: Regul atory Requirements State: Only Absolute Cell Counts are reported with their reference ranges. Performed By: #### C BC #### [facility] (DEFAULT) [address] [place] [address] 06716 CHEST SINGLE VIEWon 04-23-20 CHEST SINGLE VIEW [facility] Patient: DELILAH MANCUSO [address] [facility] [place] [address] Admit Date: 04/23/21 /Age: 09 1980 ED Physician: Ramirez Grimaldo MD DIAGNOSTIC RADIOLOGY REQUISITION Attending Physician: Med Rec #: [id number] EXAM: CHEST SINGLE VIEW HISTORY: SOB, check for RLL infiltrate Covid positive COMPARISON: Chest x-ray 05/20/2015 FINDINGS: The cardiac silhouette is stable. Inspiratory volumes are decreased. here are scattered interstitial with some alveolar groundglass opacities most prominent in the LEFT perihilar and basilar region. There is no pleural effusion or pneumothorax. There is no acute osseous finding. IMPRESSION: LEFT basilar predominant interstitial and airspace opacities. Givenhistory this may be seen in Covid as well as other etiologies. Authenticated on: 04/23/21 1234 [id number] Job ID# [id number] CC: Ramirez Grimaldo MD Normal [facility] CTA THORAX W POST PROCESSING on 04-23-2021 CTA THORAX W POST PROCESSING [facility] Patient: DELILAH M[address] [place] [address] Admit Date: 04/23/21 /Age: 09 1980 ED Physician: Ramirez Grimaldo MD DIAGNOSTIC RADIOLOGY REQUISITION Attending Physician: Alonso Rec #: [id number] EXAMINATION: CTA THORAX W POST PROCESSING HISTORY: Covid pneumonia and elevated d-dimer. Evaluate for pulmonary embolism. COMPARISON: None. TECHNIQUE: CT angiography of the chest was performed with IV contrast. MIP (maxmum intensity projection) images or 3D post processing was performed. CT dose reduction technique was used, including Automated Exposure Control. AI TECHNOLOGY: This study was processed using Vivol[employer] CT Technology. No prior found. Current Lung Volume: 1.10 liters (right), 1.00 liters (left) FINDINGS: There is no pulmonary embolism. The pulmonary arteries are normal in ize. The thoracic aorta is normal in caliber. Contrast opacification of the aorta is suboptimal. The heart is normal in size. There is no pericardial effusion. There are scattered groundglass attenuation opacities throughout both lungs. Nofocal consolidation, pleural effusion or pneumothorax. The central airways are patent. There are no enlarged lymph nodes by CT size criteria. No acute abnormality in the visualized portions of the upper abdomen. Diffuse lw-attenuation of the liver suggests fatty infiltration. Asymmetric thickening of the left adrenal gland is favored to be hyperplasia. There is a splenule adjacent to the spleen. No acute osseous abnormality. IMPRESSION: 1. No pulmonary embolism. 2. Scattered groundglass attenuation opacities throughout both lungs compatiblewith viral pneumonia. Authenticated on: 04/23/211402 [id number]/RRIA 02 02 Job ID# [id number] CC: Ramirez Grimaldo MD Normal [facility] Coagulation Panelon 04-23-20 aPTT Coag (Bld) [Time] 26.5 s Normal 21.9-33.8 [facility] Comment on above: Performed By: #### C OAGS #### [facility] (DEFAULT) [address], [place] [address] INR Coag (PPP) [Relative time] 0.89 {INR} Low 0.90-1.20 [facility] Comment on above: Result Comment: Ther apeutic range of an INR is 2.0 - 3.0. Prosthetic Valves: 2.5-3.5 An INR >5.0 is considered critical. Performed By: #### C OAGS #### [facility] (DEFAULT) [address], [place] [address] PT Coag (PPP) [Time] 9.7 s Normal 8.7-11.4 [facility] Comment on above: Performed By: #### C OAGS #### [facility] (DEFAULT) [address] [place] [address] Comprehensive Metabolic Pane nadia 04-23-2021 Albumin [Mass/Vol] 3.0 g/dL Low 3.2-4.5 [facility] Comment on above: Performed By: #### C OAGS #### [facility] (DEFAULT) [address], [place] [address] ALP [Catalytic activity/Vol] 100 U/L Normal 40-140 [facility] Comment on above: Performed By: #### C OAGS #### [facility] (DEFAULT) [address], [place] [address] ALT [Catalytic activity/Vol] 70 U/L High 14-65 [facility] Comment on above: Performed By: #### C OAGS #### [facility] (DEFAULT) [address], [place] [address] Anion gap [Moles/Vol] 15 mmol/L Normal 10-20 [facility] Comment on above: Performed By: #### C OAGS #### [facility] (DEFAULT) [address] [address] AST [Catalytic activity/Vol] 38 U/L Normal 0-45 [facility] Comment on above: Performed By: #### C OAGS #### [facility] (DEFAULT) [address], [place] [address] Bilirubin [Mass/Vol] 0.3 mg/dL Normal 0.0-1.3 [facility] Comment on above: Performed By: #### C OAGS #### [facility] (DEFAULT) [address] [place] [address] Calcium [Mass/Vol] 8.9 mg/dL Normal 8.0-10.2 [facility] Comment on above: Performed By: #### C OAGS #### [facility] (DEFAULT) [address] [place] [address] Chloride [Moles/Vol] 105 mmol/L Normal 98-108 [facility] Comment on above: Performed By: #### C OAGS #### [facility] (DEFAULT) [address] [place] [address] CO2 [Moles/Vol] 20.0 mmol/L Low 21.0-32.0 [facility] Comment on above: Performed By: #### C OAGS #### [facility] (DEFAULT) [address], [place] [address] Creatinine [Mass/Vol] 0.7 mg/dL Normal 0.4-1.1 [facility] Comment on above: Performed By: #### C OAGS #### [facility] (DEFAULT) [address] [place], [place] [address], [place] [address] GFR/1.73 sq M.predicted MDRD (S/P/Bld) [Vol rate/Area] 96 mL/min/{1.73_m2} Normal 60-1000 [facility] Comment on above: Result Comment: The eGFR should be used for monitoring renal function only and not for medication dosing. Performed By: #### C OAGS #### [facility] (DEFAULT) [address] [place] [address] Glucose [Mass/Vol] 177 mg/dL High 65-99 [facility] Comment on above: Performed By: #### C OAGS #### [facility] (DEFAULT) [address] [place] [address] Potassium [Moles/Vol] 4.2 mmol/L Normal 3.5-5.1 [facility] Comment on above: Performed By: #### C OAGS #### [facility] (DEFAULT) [address] [place] [address] Protein [Mass/Vol] 7.5 g/dL Normal 6.0-8.0 [facility] Comment on above: Performed By: #### C OAGS #### [facility] (DEFAULT) [address] [place] [address] Sodium [Moles/Vol] 136 mmol/L Normal 135-145 [facility] Comment on above: Performed By: #### C OAGS #### [facility] (DEFAULT) [address] [place] [address] Urea nitrogen [Mass/Vol] 11 mg/dL Normal 8-25 [facility] Comment on above: Performed By: #### C OAGS #### [facility] (DEFAULT) [address] [place] [address] D-Dimer Quantitativeon 04-23 D-Dimer Quantitative 1191.0 ng/mL FEU High 6.0-450.0 [facility] Comment on above: Result Comment: A D- Dimer concentration of <450 ng/mL FEU is considered a low probability for pulmonary embolism (PE) and deep venous thrombosis (DVT). Results of this test should be interpreted in conjunction with the patient's medical history and clinical findings. Diagnosis should not be based on the results of the D-dimer alone. The range associated with other clinical conditions (e.g. sepsis) has not been validated for this method. 90% of normal patients are less than 400 ng/ml. Performed By: #### C OAGS #### [facility] (DEFAULT) [address] [place], [place] [address] EDREPTon 04-23-[address] 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 c/o testing positive for covid , and did home quarantine recently just finished quarantine yesterday. Patient states for 1 week now has worsening SOB, loss of sense of taste, headache, intermittent fevers treated with Ibuprofen. arrives by private vehicle, and is ambulatory. has decreased appetite , but trying to keep up on oral fluids. has hx of type 2 DM. Timing: Other - 2 weeks symptoms. SOB for 1 week. Duration: Getting Worse Initiating Event: Upper Respiratory Illness Severity: Moderate Modifying Factors: Exertion Associated Symptoms: Fever/Chills, Nonproductive Cough - tightness to upper mid chest Past Medical History Previous Medical History: Yes Medical History: Diabetes, Hypertension Allergies amoxicillin Adverse Reaction (Verified 04/23/21 11:39) Hives Home Medications Bisoprolol/Hydrochlor othiazide [Bisoprolol-Hctz 2.5-6.25 mg Tb] 1 tab PO DAILY 04/23/21 Empagliflozin [Jardiance] 10 mg PO DAILY 04/23/21 Guaifenesin/Dm/Pseudo ephedrine [Capmist Dm Tablet] 1 tab PO PRN 04/23/21 Lisinopril [Zestril] 20 mg PO DAILY 04/23/21 Metformin HCl 1,000 mg PO BID 04/23/21 - Psychosocial History Hx Alcohol Use: No Hx Substance Use: No Smoking Status: Current every day smoker Hx Physical Abuse: No - Vaccination History Hx Tetanus, Diphtheria Vaccination: No Hx Influenza Vaccination: No Hx Pneumococcal Vaccination: No Immunizations Up to Date: Yes Review Of Systems All Other Systems: Reviewed and negative for new complaints Constitutional: Reports: See HPI, Reports: Fever, Reports: Other - lost 18 pounds in the last 2 weeks EENT: Reports: No Symptoms Reported Respiratory: Reports: See HPI Cardiac (ROS): Reports: No Symptoms Reported ABD/GI: Reports: Poor appetite : Reports: Other - dark urine. denies . Musculoskeletal: Reports: No Symptoms Reported Skin: Reports: No Symptoms Reported Neurological/Psych: Reports: Headache Hematologic/Lymphatic : Reports: No Symptoms Reported Physical Exam General Appearance: Alert, Mild Distress Eyes Bilateral: Normal Inspection, PERRL - 4 mm BL ENT: ENT Inspection Normal, Pharynx Normal, Dry Mucous Membranes, Other - no facial swelling or percussion tenderness to sinuses Neck/Back: Normal Inspection, Other - neck supple, no bruits. Respiratory: Speaks Full Sentences, No Pleuritic Chest Pain, Decreased Air Movement - R base, Rales - right base and mid lung field, and left basilar rales. Cardiovascular: Regular Rate Rhythm, No Murmur, No Gallop Peripheral Pulses: Radial (R): 2+ Abdomen: Non-Tender, No Organomegaly, Normal Bowel Sounds, No Distention, No Hepatosplenomegaly Skin: Color Normal, No Rash, Warm, Dry Extremities: Non-Tender - no cords, no edema. , Full ROM, Normal Appearance, No Pedal Edema Neurologic/Psychiatri c: Oriented x3, Motor Normal, Mood/Affect Normal Results - Lab Results Laboratory Tests 04/23/21 04/23/21 04/23/21 11:55 11:55 11:55 WBC 6.16 RBC 4.61 Hgb 13.3 Hct 40.5 MCV 88 MCH 28.9 MCHC 32.8 RDW 13.8 Plt Count 202 MPV 9.5 Immature Gran % (Auto) 0.3 Neutrophils % 75.5 Lymphocytes % 19.5 Monocytes % 4.5 Eosinophils % 0.0 Basophils % 0.2 Neutrophils # 4.65 Lymphocytes # 1.20 Monocytes # 0.28 L Basophils # 0.01 Eosinophilia # 0.00 D-Dimer, Quantitative 1191.0 H Sodium 136 Potassium 4.2 Chloride 105 Carbon Dioxide 20.0 L Anion Gap 15 BUN 11 Creatinine 0.7 Estimated GFR 96 Glucose 177 H Lactic Acid 1.2 Calcium 8.9 Total Bilirubin 0.3 AST 38 ALT 70 H Alkaline Phosphatase 100 Troponin I High Sens 9 Total Protein 7.5 Albumin 3.0 L SARS Source 04/23/21 12:44 WBC RBC Hgb Hct MCV MCH MCHC RDW Plt Count MPV Immature Gran % (Auto) Neutrophils % Lymphocytes % Monocytes % Eosinophils % Basophils % Neutrophils # Lymphocytes # Monocytes # Basophils # Eosinophilia # D-Dimer, Quantitative Sodium Potassium Chloride Carbon Dioxide Anion Gap BUN Creatinine Estimated GFR Glucose Lactic Acid Calcium Total Bilirubin AST ALT Alkaline Phosphatase Troponin I High Sens Total Protein Albumin SARS Source Detected Progress ED Course/Plan: CXR shows BL pneumonia in lower lobes of lungs. Covid test is positive (detected), and will initiate Remdesivir and Dexamethasone IV. patient needs to be admitted for BL covid pnemonia. Patient (more content not included)... Normal [facility] ID NOW SARS-CoV-2 RNA Qualit ativeon 04-23-2021 ID NOW COVID19 Detected Normal Not Detected [facility] Comment on above: Order Comment: Criti elan Result called to and read back by MERON BEE RN of er on 04/23/2021 1:04 PM by Maru El. Result Comment: This test was performed under the FDA's Emergency Use Authorization (EUA). Testing was performed using the Hand ID NOW COVID-19 assay on the ID NOW platform. This test has not been approved for use in asymptomatic patients and its performance in this patient population has not been evaluated. Negative results do not rule out the presence of SARS-CoV-2/COVID-19 infection and should not be used as the sole basis for patient management decisions. Fact sheets for the EUA can be found at the following links: For Healthcare Providers: https//www.fda.gov/media/116034/download For Patients: https//www.fda.gov/media/865935/download Performed By: #### I [id number] #### [facility] (DEFAULT) [address] [place], [place] [address] INITIAL HS TROPONIN Ion 09-0 HS Troponin I 9 ng/L Normal 3-59 [facility] Comment on above: Performed By: #### C OAGS #### [facility] (DEFAULT) [address] [place], [place] [address] Lactic Acid, Plasmaon 2020 Lactic Acid, Plasma 1.2 mmol/L Normal 0.6-2.0 [place] Comment on above: Performed By: #### L A #### [facility] (DEFAULT) [address] [place], [place] [address] No Panel Informationon 04-23 SARS Source Detected Not Detected [facility] Work Phone: Comment on above: This test was perfor med under the FDA's Emergency Use Authorization (EUA). Testing was performed using the Hand ID NOW COVID-19 assay on the ID NOW platform.This test has not been approved for use in asymptomatic patients and its performance in this patient population has not been evaluated. Negative results do not rule out the presence of SARS-CoV-2/COVID-19 infection and should not be used as the sole basis for patient management decisions.Fact sheets for the EUA can be found at the following links:For Healthcare Providers: https//www.fda.gov/media/003693/downloadFor Patients: https//www.fda.gov/media/819138/download Troponin I High Sensitivity 9 ng/L 3-59 [facility] Work Phone: Serum or plasma lactate marce urement (moles/volume)on 04-23-2021 Lactate [Moles/Vol] 1.2 mmol/L 0.6-2.0 [place] Work Phone: Hemoglobin A1Con 08-16-2020 Glucose [Mass/Vol] 183 mg/dL [place], [place] Comment on above: The ADA and AACC rec ommend providing the estimated average glucose result to permit better patient understanding of their HBA1c result. HbA1c (Bld) [Mass fraction] 8.0 % High 4 - 6 % [place], [place] Interpretation and review of laboratory results Abnormal [place] Lipid Panelon 08-16-2020 Cholesterol [Mass/Vol] 196 mg/dL <200 [place] Comment on above: Cholesterol Guidelines: <200 Desirable 200-240 Borderline >240 Undesirable Cholesterol in HDL [Mass/Vol] 51 mg/dL >40 [place] Comment on above: HDL Guidelines: <40 Undesirable 40-59 Borderline >59 Desirable Cholesterol in LDL [Mass/Vol] 82 mg/dL 0 - 130 mg/dL [place] Comment on above: LDL Guidelines: <100 Desirable 100-129 Near to/above Desirable 130-159 Borderline >159 Undesirable Direct (measured) LDL and calculated LDL are not interchangeable tests. Cholesterol in VLDL [Mass/Vol] NOT REPORTED High 1 - 30 mg/dL [place] Cholesterol.total/Ch olesterol in HDL [Mass ratio] 3.8 {ratio} <5 [place] Interpretation and review of laboratory results Abnormal [place] Triglyceride [Mass/Vol] 315 mg/dL High <150 [place] Comment on above: Triglyceride Guidelines: <150 Desirable 150-199 Borderline 200-499 High >499 Very high Based on AHA Guidelines for fasting triglyceride, May 2012. Patient Fasting?on 0 Patient Fasting? yes [place], [place] Comprehensive Metabolic Pane nadia 05-02-2020 Albumin [Mass/Vol] 4.2 g/dL 3.5 - 5.2 g/dL [place], [place] Albumin/Globulin [Mass ratio] NOT REPORTED [place] ALP [Catalytic activity/Vol] 82 U/L 35 - 104 U/L [place] ALT [Catalytic activity/Vol] 55 U/L High 5 - 33 U/L [place] Anion gap [Moles/Vol] 12 mmol/L 9 - 17 mmol/L [place] AST [Catalytic activity/Vol] 26 U/L <32 [place] Bilirubin Ql (U) 0.32 mg/dL 0.3 - 1.2 mg/dL [place] Bun/Cre Ratio 15 [place] Calcium [Mass/Vol] 9.3 mg/dL 8.6 - 10. 4 mg/dL [place] Chloride [Moles/Vol] 101 mmol/L 98 - 10 7 mmol/L [place] CO2 [Moles/Vol] 22 mmol/L 20 - 31 mmol/L [place] Creatinine [Mass/Vol] 0.67 mg/dL 0.5 - 0.9 mg/dL [place] GFR >60 >60 mL/min [place], [place] GFR Non- >60 >60 mL/min [place] GFR/1.73 sq M predicted among non-blacks MDRD (S/P/Bld) [Vol rate/Area] [place] Comment on above: Average GFR for 30-3 9 years old: 107 mL/min/1.73sq m Chronic Kidney Disease: <60 mL/min/1.73sq m Kidney failure: <15 mL/min/1.73sq m eGFR calculated using average adult body mass. Additional eGFR calculator available at: http://www.[employer]/multiple_crcl_2012.htm GFR/1.73 sq M predicted among non-blacks MDRD (S/P/Bld) [Vol rate/Area] NOT REPORTED [place] Glucose [Mass/Vol] 190 mg/dL High 70 - 99 mg/dL [place], [place] Interpretation and review of laboratory results Abnormal [place] Potassium [Moles/Vol] 4.1 mmol/L 3.7 - 5.3 mmol/L [place] Protein [Mass/Vol] 8.2 g/dL 6.4 - 8.3 g/dL [place] Sodium [Moles/Vol] 135 mmol/L 135 - 144 mmol/L [place] Urea nitrogen [Mass/Vol] 10 mg/dL 6 - 20 mg/dL [place] Lipid Panelon 05-02-2020 Cholesterol [Mass/Vol] 191 mg/dL <200 [place] Comment on above: Cholesterol Guidelines: <200 Desirable 200-240 Borderline >240 Undesirable Cholesterol in HDL [Mass/Vol] 45 mg/dL >40 [place] Comment on above: HDL Guidelines: <40 Undesirable 40-59 Borderline >59 Desirable Cholesterol in LDL [Mass/Vol] 86 mg/dL 0 - 130 mg/dL [place] Comment on above: LDL Guidelines: <100 Desirable 100-129 Near to/above Desirable 130-159 Borderline >159 Undesirable Direct (measured) LDL and calculated LDL are not interchangeable tests. Cholesterol in VLDL [Mass/Vol] NOT REPORTED High 1 - 30 mg/dL [place] Cholesterol.total/Ch olesterol in HDL [Mass ratio] 4.2 {ratio} <5 [place] Interpretation and review of laboratory results Abnormal [place] Triglyceride [Mass/Vol] 301 mg/dL High <150 [place] Comment on above: Triglyceride Guidelines: <150 Desirable 150-199 Borderline 200-499 High >499 Very high Based on AHA Guidelines for fasting triglyceride, May 2012. Microalbumin / Creatinine Ur ine Ratioon 05-02-2020 Albumin/Creatinine DL <= 20 mg/L (24H U) [Mass ratio] <12 <21 mg/L [place] Albumin/Creatinine DL <= 20 mg/L (U) [Ratio] CANNOT BE CALCULATED <25 mcg/mg creat [place] Creatinine, Ur 205.1 mg/dL 28 - 217 mg/dL [place] Patient Fasting?on 0 Patient Fasting? YES [place], [place] Coding Summary.on 01-25-2020 Coding Summary. CODING DATE: 01/25/2020 FINAL [facility] STATUS: Home (Routine DC) PAYOR: Medical [place] ADMIT DX: REASON FOR VISIT DX: Z01.812 Encounter for preprocedural laboratory examination FINAL DX: PRINCIPAL: Z01.812 Encounter for preprocedural laboratory examination SECONDARY: Z11.59 Encounter for screening for other viral diseases PYMT PROC APC STAT DESCRIPTION DOCTOR NAME DATE NOTE: The code number assigned matches the documented diagnosis and / or procedure in the patient's chart. However, the narrative phrase printed from the coding software may appear abbreviated, or result in slightly different terminology. Coded By: Sally Chester CphT Date Saved: 01/25/2020 02:47 pm [facility] Postoperative Documentson Postoperative Documents [id number]#1 .00CD:127 [facility] IntraOperative Documentson 0 01-19-2020 IntraOperative Documents [id number]#1 .00CD:127 [facility] Coding Summary.on 01-18-2020 Coding Summary. CODING DATE: 01/18/2020 FINAL [facility] STATUS: Home (Routine DC) PAYOR: [facility] [place] APC DESCRIPTION 5362 Level 2 Laparoscopy and Related Services ADMIT DX: REASON FOR VISIT DX: N80.9 Endometriosis, unspecified FINAL DX: PRINCIPAL: N80.0 Endometriosis of uterus SECONDARY: N87.9 Dysplasia of cervix uteri, unspecified R10.2 Pelvic and perineal pain N81.89 Other female genital prolapse I10 Essential (primary) hypertension E11.9 Type 2 diabetes mellitus without complications Z79.84 terminologist (current) use of oral hypoglycemic drugs PYMT PROC APC STAT DESCRIPTION DOCTOR NAME DATE 29727 5362 J1 Laparoscopy, surgical, Erika RODRIGUEZ, Alli Dickens 01/15/2020 with total hysterectomy, for uterus 250 g or less; with removal of tube(s) and/or ovary(s) 284[address] Anesthesia for Jabier Puentes Jr., DO 01/15/2020 intraperitoneal procedures in lower abdomen including laparoscopy; not otherwise specified NOTE: The code number assigned matches the documented diagnosis and / or procedure in the patient's chart. However, the narrative phrase printed from the coding software may appear abbreviated, or result in slightly different terminology. Revised Coded By: Snadra Salguero Revised Date Saved: 01/18/2020 12:27 pm [facility] Consent for Anesthesiaon Consent for Anesthesia [id number]# 1.00CD:127 [facility] Discharge Instructionson Discharge Instructions [id number]# 1.00CD:127 [facility] IntraOperative Documentson 0 01-18-2020 IntraOperative Documents [id number]# 1.00CD:127 [facility] IntraOperative Documents [id number]# 1.00CD:127 Normal [facility] Main OR Intraoperative Recor don 01-18-2020 Main OR Intraoperative Record IntraOp Document Type FT Summary Primary Physician: Alli Gaston MD Finalized Date/Time: 01/18/20 09:27:07 Pt. Name: DELILAH MANCUSO /Sex: 1980 Female Med Rec #: [id number] Physician: Alli Gaston MD Financial #: [id number] Pt. Type: A Room/Bed: [facility] Admit/Disch: 01/15/20 05:56:52 - 01/15/20 15:15:00 Institution: Case Times FT Entry 1 Patient Times In Room 01/15/20 07:41:00 Out Room 01/15/20 09:42:00 Procedure Times Start 01/15/20 08:06:00 Stop 01/15/20 09:36:00 Anesthesia Times Start 01/15/20 07:41:00 Stop 01/15/20 09:42:00 Last Modified By: Sheree Park RN 01/15/20 09:45:43 General Comments: 0820: robot docked. 6620-1949: dr gaston out of room for consultation 0840:surgeon to console 01/18/2020 Chart opened to review and send charges Alayna Humphreys LENS CEMENTER Case Attendance FT Entry 1 Entry 2 Entry 3 Case Attendee Jabier Puentes Jr., DO, MD, Alli Mittal LENS CEMENTER/SA, Adelita Role Performed Anesthesiologist of Surgeon - Primary LENS CEMENTER/SA Record Time In 01/15/20 07:41:00 01/15/20 07:56:00 01/15/20 07:41:00 Time Out 01/15/20 09:42:00 01/15/20 09:26:00 01/15/20 09:42:00 Procedure HYSTERECTOMY, ROBOT HYSTERECTOMY, ROBOT HYSTERECTOMY, ROBOT ASSISTED(Bilateral) ASSISTED(Bilateral) ASSISTED(Bilateral) Comments Last Modified By: Xavier MATT, Sheree Park RN, Sheree Early RN 01/15/20 09:45:44 01/15/20 09:45:44 01/15/20 09:45:44 Entry 4 Entry 5 Entry 6 Case Attendee Xavier MATT, Sheree Ray CST, Marta Vieira RN, JINAOR, Maritza Barth Role Performed Handling Tech - Primary Scrub - Primary Scrub - Other Time In 01/15/20 07:41:00 01/15/20 07:41:00 01/15/20 07:41:00 Time Out 01/15/20 09:42:00 01/15/20 09:42:00 01/15/20 09:23:00 Procedure HYSTERECTOMY, ROBOT HYSTERECTOMY, ROBOT HYSTERECTOMY, ROBOT ASSISTED(Bilateral) ASSISTED(Bilateral) ASSISTED(Bilateral) Comments 2nd scrub Last Modified By: Xavier MATT, Sheree Park RN, Sheree Early RN 01/15/20 09:45:44 01/15/20 09:45:44 01/15/20 09:45:44 Perioperative Protocols FT Pre-Care Text: Implements protective measures prior to operative or invasive procedure, confirms identity before the operative or invasive procedure, verifies operative procedure, surgical site, and laterality Entry 1 Procedure(s) HYSTERECTOMY, ROBOT Patient Identity Birthday, Blood Band, ASSISTED(Bilateral) Verified (select at ID Band Check, Patient least 2): Participation Consents / H and P Anesthesia Consent, Operative Site N/A Verified HandP, Surgery/Procedure Marking Verified Consent Surgical Site Yes Laterality Verified n/a Verified Procedure Verified Yes Correct Patient Yes Position Verified Availability Equipment, Medication Prep Dry Yes Verified (If Applicable) PreOp Antibiotic Yes Time Out Jabier Puentes Jr., DO Given Participants GErika MD, Daxa Colindres LENS CEMENTER/Adelita OWEN Farris RN, Flor Cabrera CST, Isha Gann RN, JINAOR, Maritza Barth Time Out Complete 01/15/20 08:05:00 Outcomes Met? Yes Last Modified By: Sheree Park RN 01/15/20 08:34:55 Post-Care Text: The patient is free from signs and symptoms of injury caused by extraneous objects Allergy Information FT Pre-Care Text: Verifies allergies Entry 1 Allergies Reviewed? Yes Allergies Reviewed Self/Patient With Outcomes Met? Yes Last Modified By: Sheree Park RN 01/15/20 07:25:38 Post-Care Text: The patient received appropriate medication(s) safely administered during the perioperative period Surgical Procedures FT Entry 1 Procedure Description Procedure HYSTERECTOMY, ROBOT Modifiers Bilateral ASSISTED Surgeon Description ROBOTIC ASSISTED HYSTERECTOMY, ROBERTO SALPINGECTOMY, POSSIBLE VAGINAL Primary Procedure Yes Primary Surgeon Alli Gaston MD Start 01/15/20 08:06:00 Stop 01/15/20 09:36:00 Anesthesia Type General Surgical Service Obstetric Gynecology Wound Class 2 - Clean-Contaminated Last Modified By: Sheree Park RN 01/15/20 09:45:45 General Case Data FT Pre-Care Text: Classifies surgical wound, implements aseptic technique, initiates traffic control Entry 1 Case Information OR OR 6 FT Case Level Level 5 Wound Class 2 - Clean-Contaminated Specialty Obstetric Gynecology ASA Class 3 Preop Diagnosis UTERINE PROLAPSE, Postop Same As Preop Yes PELVIC PAIN Postop Diagnosis UTERINE PROLAPSE, Outcomes Met? Yes PELVIC PAIN Last Modified By: Sheree Park RN 01/15/20 08:49:31 Post-Care Text: The patient is free from signs and symptoms of infection Skin Assessment (Pre Procedure) FT Pre-Care Text: Implements protective measures to prevent skin/ tissue injury due to thermal or mechanical sources Evaluates for signs and symptoms of physical injury to skin and tissue Entry 1 Skin Integrity Intact, [place], Warm, and Skin Abnormality No Dry Outcomes Met? Yes Last Modified By: Sheree Park RN 01/15/20 08:49:26 Post-Care Text: The patient is free from signs and symptoms of injury caused by extraneous objects Patient Positioning FT Pre-Care Text: Identifies physical alterations that require additional precautions for procedure-specific positioning, verifies presence of prosthetics or corrective devices, positions the patient, evaluates the patient for signs and symptoms of injury as a result of positioning Entry 1 Procedure HYSTERECTOMY, ROBOT Body Position Low Lithotomy ASSISTED(Bilateral) Feet Uncrossed? Yes Left Arm Position Tucked and Padded at Side Right Arm Position Extended on Padded Arm Left Leg Position Secured in Stirrup Board Right Leg Position Secured in Stirrup Positioning Device Safety Strap, Arm Sled Bilateral, Stirrups Yellow Fins Press Points Checked Yes By Jabier Puentes Jr., DO, Farris RN, Karen M, Isha RN, CNOR, Erika Rosales MD, James D Outcomes Met? Yes Last Modified By: Sheree Park RN 01/15/20 08:48:03 Post-Care Text: The patient is free from signs and symptoms of injury related to positioning Patient Care Devices FT Pre-Care Text: Implements protective measures to prevent skin/ tissue injury due to thermal or mechanical sources Entry 1 Entry 2 Entry 3 Equipment Type BIS MONITOR[F] GLIDESCOPE, CAUTERY UNIT[F] INTUBATING[F] Equipment Number boom or 6 Equipment Setting Outcomes Met? Yes Yes Yes Last Modified By: Sheree Park RN, RN, Sheree Early RN 01/15/20 07:19:09 01/15/20 07:19:09 01/15/20 07:19:09 Entry 4 Entry 5 Entry 6 Equipment Type CONMED PRESSURE INSUFLATORS[F] INSUFLOW HEATER UNIT[F] IRRIGATION PUMP SYSTEM[F] Equipment Number Equipment Setting Outcomes Met? Yes Yes Yes Last Modified By: Sheree Park RN, RN, Karen M Farris RN, Karen M 01/15/20 07:19:09 01/15/20 07:19:09 01/15/20 07:19:09 Entry 7 Entry 8 Entry 9 Equipment Type MISTRAL FORCED AIR MONITOR CHARGE SURGERY PADDED STIRRUPS [F] WARMING SYSTEM UNIT[F] [F] Equipment Number m3 Equipment Setting Outcomes Met? Yes Yes Yes Last Modified By: Sheree Park RN, RN, Sheree Early RN 01/15/20 07:19:09 01/15/20 07:19:09 01/15/20 07:19:09 Entry 10 Entry 11 Equipment Type VENA FLOW UNIT[F] VIDEO SYSTEM[F] Equipment Number Equipment Setting Outcomes Met? Yes Yes Last Modified By: Sheree Park RN, RN, Karen M 01/15/20 07:19:09 01/15/20 07:19:09 Post-Care Text: The patient is free from signs and symptoms of injury caused by extraneous objects Transport To OR FT Pre-Care Text: Transports according to individual needs. Evaluates for signs and symptoms of skin and tissue injury as a result of transfer or transport Entry 1 Via Cart By Sheree Park RN Safety Precautions Side Rails Up Outcomes Met? Yes Last Modified By: Sheree Park RN 01/15/20 07:25:44 Post-Care Text: The patient is free from signs and symptoms of injury related to transfer/transport Cautery FT Pre-Care Text: Implements protective measures to prevent injury due to electrical sources, and evaluates for signs and symptoms of electrical injury Entry 1 ESU Identification ESU Settings Cut 35 Coag 35 ESU Grounding Pad Site Right Thigh Hair Removal Pad No Site Pre Pad Site Clear and Intact Post Pad Site Clear and Intact Condition Condition Grounding Pad Sheree Park RN Placed By Outcomes Met? Yes Last Modified By: Sheree Park RN 01/15/20 07:59:29 Post-Care Text: The patient if free from signs and symptoms of electrical injury Counts Verification FT Pre-Care Text: Performs required counts Entry 1 Entry 2 Procedure(s) HYSTERECTOMY, ROBOT HYSTERECTOMY, ROBOT ASSISTED(Bilateral) ASSISTED(Bilateral) Type Initial Final Items Instruments, Sponges, Instruments, Sponges, Sharps Sharps Status Correct Correct Time 01/15/20 07:36:00 01/15/20 07:36:00 By Flor PEOPLES, Marta Ray CST, Isha Gann RN, CNORMaritza Farris RN, Karen M Ann Outcomes Met? Yes Yes Last Modified By: Sheree Park RN, RN, Karen M 01/15/20 09:46:18 01/15/20 09:46:18 Post-Care Text: The patient is free from signs and symptoms of injury caused by extraneous objects Skin Prep FT Pre-Care Text: Performs skin preparations Entry 1 Entry 2 Procedure HYSTERECTOMY, ROBOT HYSTERECTOMY, ROBOT ASSISTED(Bilateral) ASSISTED(Bilateral) Prep Area abdomen vagina Prep Agents Chloraprep/Dry Prior to Betadine Scrub and Draping Solution Start Dry Time 01/15/20 07:56:00 Stop Dry Time 01/15/20 07:59:00 Hair Removal Methods Site By Sheree Park RN, CST/Adelita OWEN Outcomes Met? Yes Yes Last Modified By: Sheree Park RN, RN, Karen M 01/15/20 08:00:02 01/15/20 09:00:58 Post-Care Text: The patient is free from signs and symptoms of infection Departure From OR FT Pre-Care Text: Transports according to individual needs. Evaluates for signs and symptoms of skin and tissue injury as a result of transfer or transport. Entry 1 Via Cart Safety Precautions Side Rails Up PostOp Destination PACU Transported By Sheree Park RN, Barrett Jr. DO, Clyde G Patient Status Stable Skin. Condition Other/See Comments Description same as pre op Airway Maintenance Oxygen in Use? Yes Airway Device Simple Mask Flow Rate 10 L/min Outcomes Met? Yes Last Modified By: Sheree Park RN 01/15/20 08:48:35 Post-Care Text: The patient is free from signs and symptoms of injury related to transfer/transport General Comments: handoff report given to pacu nurse. SHAKA George Dressing/Packing FT Pre-Care Text: Administers care to wound sites Entry 1 Type Dressing Items DRESSING STERI-STRIP 1/4 X 4 [R1546][F] Site and Details abdomen: steri strips Outcomes Met? Yes and bandaid to port sites Last Modified By: Sheree Park RN 01/15/20 08:49:16 Post-Care Text: The patient is free from signs and symptoms of infection Medication Administration FT Pre-Care Text: Verifies allergies, administers prescribed medications and solutions, administers prescribed antibiotic therapy and immunizing agents as ordered, evaluates response to medications Administers prescribed medications and solutions Entry 1 Expiration Date Yes Outcomes Met? Yes Verified Last Modified By: Sheree Park RN 01/15/20 07:25:10 Post-Care Text: The patient received appropriate medication(s) safely administered during the perioperative period For [place] please see scanned medication reconcilliation form for medications used at the field during the procedure. Urinary Catheter Pre-Care Text: Patient is prepped using sterile technique. Entry 1 Urinary Catheter TRAY URINE CHANDRA CATH Present Upon Arrival No Inserted LF 16FR [[id number]][F] Insertion Date/Time 01/15/20 08:00:00 Urine Residual 60 Insertion Site Uretheral Urine clear yellow Characteristics Inserted By Sharp LENS CEMENTER/SA, Adelita Discontinued? No Outcomes Met? Yes Last Modified By: Sheree Park RN 01/15/20 08:55:53 Post-Care Text: The patient is free from signs of trauma. Cultures and Specimens FT Pre-Care Text: Manages specimen handling and disposition Manages culture specimen collection Entry 1 Cultures Ordered Yes Culture Disposition Designated OR Area Culture Source urine Specimens Ordered Yes Specimen Disposition Designated OR Area Frozen Section Times Outcomes Met? Yes Last Modified By: Sheree Park RN 01/15/20 08:48:51 Post-Care Text: The patient is free from signs and symptoms of injury caused by extraneous objects The patient is free from signs and symptoms of infection Temperature Control Entry 1 Temperature Control BLANKET MISTRAL AIR Quantity 1 Aid TORSO [TR4699-[id number]][F] Fluid/[place] Unit Mistral warming system Setting high/43 degrees Body Site Upper anterior torso Last Modified By: Sheree Park RN 01/15/20 07:25:29 Case Comments Finalized By: Jennifer Humphreys CST Document Signatures Signed By: Sheree Park RN 01/15/20 09:46 Jennifer Humphreys CST 01/18/20 09:27 Normal [facility] Preoperative Documentson Preoperative Documents [id number]:127 Normal [facility] Operative Reporton 0 Operative Report Date of Surgery: 01/15/2020 SURGEON: Alli Gaston MD, FACOG PREOPERATIVE DIAGNOSIS: Endometriosis, pelvic pain, pelvic relaxation POSTOPERATIVE DIAGNOSIS: Endometriosis, pelvic pain, pelvic relaxation OPERATION: Robotic-assisted hysterectomy and bilateral salpingectomy ANESTHESIA: General ANESTHESIOLOGIST: Jabier Puentes Jr., D.O. PREOPERATIVE HISTORY: The patient is a 39-year-old white female who presented to my office complaining of protrusion of the cervix from the vaginal opening which was getting worse. She also had pain with her menstrual cycles, she had a history of endometriosis in the past with progressive dysmenorrhea. She desired definitive surgical management. After discussion of the alternatives of care and different approaches of care for her problem, she elected to proceed with robotic hysterectomy and bilateral salpingectomy. We discussed the fact that she may need other approaches to take care of her hysterectomy secondary to her body habitus which she understood. She signed consent forms and was made ready for the operative suite. OPERATIVE TECHNIQUE: The patient was taken to the Operative Suite and after general anesthesia was administered, the patient draped and prepped in the usual fashion for abdominal surgery. The VCare uterine manipulator was placed in the usual fashion in the and attention was then turned to the robotic docking. The robot was docked in the usual fashion. On examination of the pelvis, the VCare uterine manipulator probe was noted to be perforated through the back side of the uterus and had come through some of the bowel mesentery. This was carefully examined and discussed with the general surgeon, and the robot was used to directly visualize the withdrawal of the uterine manipulator back through the mesentery and there was no spill of any problems, no major blood loss. A small bruise was noted in the mesentery approximately 5 mm in size. This was hemostatic and the rest of the procedure was then continued. The rest of the docking was performed in the usual fashion and attention was turned to the left fallopian tube. The left fallopian tube was followed out to its fimbriated end. The vessel sealer was then used to create pedicles underneath the mesosalpinx underneath the fallopian tube and this allowed for incorporation of the mesosalpinx of the fallopian tube and the surgical specimen. The ovarian ligament was then ligated and incised using the vessel sealer. A series of ligations and incisions were used down the mesosalpinx to the level of the round ligament. The round ligament was then ligated and incised using the vessel sealer. A series of ligations and incisions was carried down the lateral aspect of the uterus using the vessel sealer to create the pedicles as well as incise the pedicles. This allowed for the bladder flap to be reflected off the lower uterine segment and the uterine vessels on the left were skeletonized. The uterine vessels were then ligated and incised using the vessel sealer. A series of ligations and incisions were used to reflect the uterine vessels off the lower uterine segment. Attention was turned to the opposite side and a similar procedure was performed with the fallopian tube being dissected with pedicles being created using the vessel sealer, incised with the vessel sealers allowing it to be incorporated with the surgical specimen. The right ovary and left ovary did appear normal and did not have any evidence of endometriosis on them. The posterior cul-de-sac had some endometriosis that was fulgurated. A series of ligations and incisions were carried down to the rest of the mesosalpinx to the level of the round ligament. The round ligament was then ligated and incised using the vessel sealer. A series of ligations and incisions were carried down the lateral aspect of the uterus on the right. This allowed for completing of the bladder flap with the uterine vessels on the right being skeletonized. The uterine vessel was then ligated and incised using the vessel sealer. A series of ligations and incisions were used to reflect the uterine vessels off the lower uterine segment. The Endo Ruma were then used to follow the Social IQ (Social Influence Quotient)are manipulator guideline for creation of the vaginal cuff which allowed for extirpation of the uterus and tubes from the surgical field. The vaginal cuff was hemostatic and the vaginal cuff was then closed using a running stitch of 2-0 V-Loc suture incorporating the uterosacral ligament into the left aspect of the vaginal cuff and into the right using separate sutures. Hemostasis was assured. Hemostasis was again assured. Evaluation of the area of the mesosalpinx was also carried out which was hemostatic and intact. Copious amounts of irrigation were used. Hemostasis was again assured. The carbon dioxide was allowed to escape from the peritoneal cavity, the laparoscopic sheaths were removed from the peritoneal cavity. Skin edges were closed with 4-0 Vicryl suture in a subcuticular stitch. Steri-Strips and the usual dressing applied. ESTIMATED BLOOD LOSS: 10 cc FLUID REPLACEMENT: Adequate COMPLICATIONS: There were no complications DISPOSITION: The patient was transferred to the Recovery Room in stable condition Alli Gaston MD, FACOG crj Dictated: 01/15/2020 #[id number] Typed: 01/16/2020 #[id number] cc: Alli Gaston MD, TAPAN Normal [facility] Comment on above: Result Comment: Elec tronically Signed By: Erika RODRIGUEZ, Alli Dickens\.br\Date and Time Signed: 01/17/20 07:01 EDT ABO/Rhon 01-15-2020 ABO/Rh Positive [facility] Comment on above: Performed By: #### 2 [id number], [id number] #### [facility] [address] [place] [address] ABO/Rh History Checkon 01-14 ABO/Rh History Check Verified Hx Blood Type Normal [facility] Comment on above: Performed By: #### 2 [id number], [id number], [id number] #### [facility] [address] [place] [address] ABSCon 01-15-2020 ABSC Gel Interp Negative Normal [facility] Comment on above: Performed By: #### 2 [id number], [id number], [id number] #### [facility] [address] [place] [address] Blood Bank ID#on 01-15-2020 BBID# [id number] [facility] Comment on above: Performed By: #### 2 [id number], [id number], [id number] #### [facility] [address] [place] [address] Blood Bank Slipon 01-15-2020 Blood Bank Slip [id number] .[id number]:127 Normal [facility] History and Physicalon 01-14 History and Physical HOSPITAL REGULATION S: ALL Positive Important Negative Findings Shall Be Recorded DATE ADMITTED: 01/15/2020 ADMITTING DIAGNOSIS: Vaginal prolapse, endometriosis, pelvic pain. HISTORY OF PRESENT ILLNESS: The patient is a 39-year-old white female who presented to my office complaining that she had protrusion of her cervix from the vaginal opening which was getting worse. She had pain with her cycles. She had a history of endometriosis in the past with progressive dysmenorrhea. She desired definitive surgical management. We discussed the procedure of robotic hysterectomy with bilateral salpingectomy. We discussed the fact that it is possible that this would not be accessible via the robot and we would need it to be done vaginally which she understood because of her body habitus. She did have third degree relaxation with left adnexal tenderness and repetitive point tenderness. We discussed the risks involved including bleeding, infection, injury to internal organs, continued pain, possible need for vaginal approach. We discussed the need for COVID-19 testing as well as the additional risks regarding the virus related to coming to the hospital, etc, all of which she understood and accepted, signed consents and was made ready for the Operative Suite. PAST MEDICAL HISTORY: Allergies: Sensitivities to chlorine. Medications: Glucophage and Microgestin 1.5/30, lisinopril, Ziac. Illnesses: Hypertension, diabetes. FAMILY HISTORY: Noncontributory. PSYCHOSOCIAL HISTORY: Negative for cigarettes. Occasional ETOH. REVIEW OF SYSTEMS: Pressure sensation, protrusion from the vaginal vault, pelvic pain, dysmenorrhea. PHYSICAL EXAMINATION: GENERAL: A well-developed, well-nourished, white female in no acute distress. VITAL SIGNS: Afebrile, pulse 80, respirations 18, blood pressure 122/80. HEAD AND E.E.N.T.: Normocephalic. Extraocular muscles intact. The pupils equal and responsive to light and accommodation. Nose and throat clear. NECK: Without masses. Without thyromegaly. LUNGS: Clear to auscultation and percussion. HEART: Regular rate and rhythm. BREASTS: Nonpathologic. ABDOMEN: Soft, nontender. Positive bowel sounds. Negative for guarding. Negative for rebound. EXTREMITIES: Negative for clubbing, cyanosis or edema. PELVIC: Normal external genitalia. Vault third degree uterine prolapse. Anterior and posterior compartments relatively intact. Adnexa without mass. Moderate tenderness. IMPRESSION: Pelvic relaxation with pain and repetitive point tenderness for definitive management. Alli Gaston MD, FACOG gls Dictated: 01/14/2020 #[id number] Typed 01/15/2020 #[id number] cc: Alli Gaston MD, FACOG Normal [facility] Comment on above: Result Comment: Elec tronically Signed By: Alli Gaston MD\.br\Date and Time Signed: 01/15/20 09:31 EDT Inpatient Patient Summaryon 01-15-2020 Inpatient Patient Summary [place] [id number] [facility] Clinical Discharge Instructions PERSON INFORMATION Name: DELILAH MANCUSO [facility]#:[id number] PHYSICIANS Admitting Physician: Alli Gaston MD Attending Physician: Alli Gaston MD PCP: SHYAM REYNOLDS MD Discharge Diagnosis: Diabetes; Endometriosis; Female pelvic pain; Pelvic relaxation; S/P total hysterectomy; Status post bilateral salpingectomy Comment: PATIENT EDUCATION INFORMATION Instructions: METAL POURER - Post Hysterectomy/[place] my/Major Surgery-Erika (Custom); Post Op Patient Instructions - MARYLU (Custom) Medication Leaflets: Follow up: With: Address: When: Alli [address], [address], [place] [address] Business (1) Within 6 weeks With: Address: When: Alli [address], [address], [place] [address] Business (1) Within 2 weeks Comments: Call for any problems. MEDICATION LIST New Medications [facility], [address], [place] [id number], [phone] acetaminophen-oxycodo ne (Percocet 325 mg-5 mg Tab) 1 Tablets By Mouth every 6 hours as needed for pain for 2 Days. Refills: 0. Medications to Continue with No Changes Other Medications bisoprolol-hydrochlor othiazide (bisoprolol-hydrochlo rothiazide 2.5 mg-6.25 mg Tab) 1 Tablets By Mouth every day. cinnamon (Cinnamon 500 mg oral capsule) 2 Capsules By Mouth 2 times a day. ethinyl estradiol-norethindro ne (Microgestin FE 1.5/30 oral tablet) 1 Tablets By Mouth every day. ginkgo (ginkgo oral capsule) 1 tab By Mouth every day. lisinopril (lisinopril 20 mg Tab) 1 Tablets By Mouth every day. loratadine (loratadine 10 mg oral capsule) 1 Capsules By Mouth every day. metformin (metformin 1000 mg oral tablet) 1 Tablets By Mouth 2 times a day. multivitamin with minerals (Celebrate Multivitamin) 1 tab By Mouth every day. Comment: Normal [facility] Main OR PACU I Recordon 12-18 Main OR PACU I Record PACU Phase I Document Type FT Summary Primary Physician: Alli Gaston MD Finalized Date/Time: 01/15/20 10:57:46 Pt. Name: DELILAH MANCUSO /Sex: 1980 Female Med Rec #: [id number] Physician: Alli Gaston MD Financial #: [id number] Pt. Type: A Room/Bed: Admit/Disch: 01/15/20 05:56:52 - Institution: Case Times PACU I FT Pre-Care Text: Identifies barriers to communication and implements measures to provide psychological support Develops individualized plan of care, and ensures continuity of care Maintains patient's dignity and privacy, and maintains patient confidentiality Identifies and reports philosophical, cultural, and spiritual beliefs and values Identifies individual values and wishes concerning care Implements aseptic technique, and administers prescribed antibiotic therapy and immunizing agents as ordered Evaluates postoperative tissue perfusion Implements thermoregulation measures, and monitors body temperature Evaluates postoperative respiratory status Evaluates postoperative cardiac status Evaluates postoperative neurological status Assesses pain control, collaborated in initiating patient-controlled analgesia and implements alternative methods of pain control Verifies allergies, administers prescribed medications and solutions, evaluates response to medications Entry 1 In PACU I 01/15/20 09:44:00 Discharge from PACU 01/15/20 10:44:00 I Outcomes Met? Yes Last Modified By: Joanna Macias RN 01/15/20 10:57:22 Post-Care Text: The patient demonstrates knowledge of the expected response to the operative or invasive procedure The patient's care is consistent with the individualized perioperative plan of care The patient's right to privacy is maintained The patient's value system, lifestyle, ethnicity, and culture are considered, respected, and incorporated into the perioperative plan of care The patient participates in decisions affecting his or her perioperative plan of care The patient is free from signs and symptoms of infection The patient has wound/tissue perfusion consistent with or improved from baseline levels established preoperatively The patient is at or returning to normothermia at the conclusion of the immediate postoperative period The patient's respiratory function is consistent with or improved from baseline levels established preoperatively The patient's cardiovascular status is consistent with or improved from baseline levels established preoperatively The patient's cardiovascular status is consistent with or improved from baseline levels established preoperatively The patient demonstrates and/or reports adequate pain control throughout the perioperative period The patient received appropriate medication(s), safely administered during the perioperative period Acuity Level PACU I FT Entry 1 Start Time 01/15/20 09:44:00 Stop Time 01/15/20 10:44:00 Acuity Level Acuity Level I Last Modified By: Joanna Macias RN 01/15/20 10:57:40 Finalized By: Joanna Macias RN Document Signatures Signed By: Joanna Macias RN 01/15/20 10:57 [facility] Main OR PACU II Recordon Main OR PACU II Record PACU Phase II Document Type FT Summary Primary Physician: Alli Gaston MD Finalized Date/Time: 01/15/20 15:31:21 Pt. Name: DELILAH MANCUSO Chrissie /Sex: 1980 Female Med Rec #: [id number] Physician: Alli Gaston MD Financial #: [id number] Pt. Type: A Room/Bed: [facility] Admit/Disch: 01/15/20 05:56:52 - Institution: Case Times PACU II FT Pre-Care Text: Identifies barriers to communication and implements measures to provide psychological support and determines knowledge level Develops individualized plan of care, and ensures continuity of care Maintains patient's dignity and privacy, and maintains patient confidentiality Identifies and reports philosophical, cultural, and spiritual beliefs and values Identifies individual values and wishes concerning care administers prescribed antibiotic therapy and immunizing agents as ordered, Evaluates postoperative tissue perfusion Implements thermoregulation measures, and monitors body temperature Evaluates postoperative respiratory status Evaluates postoperative cardiac status Evaluates postoperative neurological status Assesses pain control, collaborated in initiating patient-controlled analgesia and implements alternative methods of pain control Verifies allergies, administers prescribed medications and solutions, evaluates response to medications Entry 1 In PACU II 01/15/20 10:45:00 Discharge from PACU 01/15/20 15:15:00 II Outcomes Met? Yes Last Modified By: Irene Silva LPN 01/15/20 15:31:20 Post-Care Text: The patient demonstrates knowledge of the expected response to the operative or invasive procedure The patient's care is consistent with the individualized perioperative plan of care The patient's right to privacy is maintained The patient's value system, lifestyle, ethnicity, and culture are considered, respected, and incorporated into the perioperative plan of care The patient participates in decisions affecting his or her perioperative plan of care. The patient is free from signs and symptoms of infection The patient has wound/tissue perfusion consistent with or improved from baseline levels established preoperatively The patient is at or returning to normothermia at the conclusion of the immediate postoperative period The patient's respiratory function is consistent with or improved from baseline levels established preoperatively The patient's cardiovascular status is consistent with or improved from baseline levels established preoperatively The patient's neurological status is consistent with or improved from baseline levels established preoperatively The patient demonstrates and/or reports adequate pain control throughout the perioperative period The patient received appropriate medication(s), safely administered during the perioperative period Finalized By: Irene Silva LPN Document Signatures Signed By: Irene Silva LPN 01/15/20 15:31 Normal [facility] Main OR Preoperative Recordo n 01-15-2020 Main OR Preoperative Record PreOp Document Type FT Summary Primary Physician: Alli Gaston MD Finalized Date/Time: 01/15/20 08:51:01 Pt. Name: DELILAH MANCUSO Chrissie /Sex: 1980 Female Med Rec #: [id number] Physician: Alli Gaston MD Financial #: [id number] Pt. Type: A Room/Bed: [facility] Admit/Disch: 01/15/20 05:56:52 - Institution: Case Times PreOp FT Pre-Care Text: Verifies consent for planned procedure, identifies individual values and wishes concerning care, includes family members in perioperative teaching Entry 1 Patient Times. In Pre Surgery 01/15/20 06:00:00 Out Pre Surgery 01/15/20 07:39:00 Outcomes Met? Yes Last Modified By: Sheree Park RN 01/15/20 08:50:53 Post-Care Text: The patient participates in decisions affecting his or her perioperative plan of care Finalized By: Sheree Park RN Document Signatures Signed By: Sheree Park RN 01/15/20 08:51 Normal [facility] Monitor Recordon 01-15-2020 Monitor Record [id number]# 1.00CD:127 Normal [facility] Monitor Record [id number]# 1.00CD:127 [facility] Patient Education - Texton 0 01-15-2020 Patient Education - Text Instructions post hysterectomy/laparoto my/major surgery It is recommended that you rest at home on the day of discharge, and get to bed early so you get a good night?s rest. Gradually increase your activity daily ? for example: no lifting anything heavier than ten pounds the first week, twenty pounds the second week, and thirty pounds the third week. NO: intercourse, douches, and tampons for the next 6 weeks. You can expect some vaginal spotting, cramps or light bleeding after surgery. This is normal. Each day should get better and better. If you are soaking a pad an hour or more frequently ? you need to call your doctor. You can ride in a car; Drive when it is not painful. If it is painful, don?t do it. Stitches will dissolve with time and do not need to be removed. The band aids can be removed tomorrow. Leave the steri strips on. They may fall off and that is o.k. You may place band aids over the steri strips if there is drainage. You can shower with the incisions the day after surgery. Try to keep the steri strips as dry as possible. No tub baths, swimming, or soaking in water until after your two week follow up appointment. Return to the office for postoperative check, and to go over any biopsy results at your scheduled appointment; usually two weeks following your surgery; and then at six weeks after surgery. Please call the office to schedule these appointments. CALL THE DOCTOR if you have severe pain, heavy bleeding, or a temperature of 100.5 or higher. Resume your regular home medication schedule as soon as you are eating a regular diet. You can either take the prescribed medications as directed for pain, or you can take over the counter pain medication, such as Motrin; as indicated on the package for pain or cramps. PLEASE CALL FOR ANY PROBLEMS. [facility] Progress Note-Physicianon Progress Note-Physician Patient: DELILAH MANCUSO Age: 39 years Sex: Female : 1980 Associated Diagnoses: None Author: Jabier Puentes Jr., DO Preoperative Information Time patient last ate or drank:=== (NPO since midnight) Anesthesia history: Patient History: No prior problems with anesthesia.. Re-eval prior to induction: Inital eval reviewed: No significant interval change, Surgical H&P documented and on chart. Surgical consent signed and on chart.. Anesthesia results Review of Systems Cardiovascular: Negative except as documented in history of present illness. Respiratory: Negative. Neurologic: Negative. Health Status Allergies: Allergic Reactions (Selected) Severity Not Documented Amoxicillin- Nausea and rash. Chlorine- Hives and difficulty breathing. Lavender- Difficulty breathing and headache., Allergies (3) Active Reaction amoxicillin Rash chlorine Difficulty breathing lavender Headache Current medications: (Selected) Inpatient Medications Ordered HYDROmorphone 1 mg/mL injectable solution: 0.4 mg = 0.4 mL, Injection, IV Push, q4min PRN Pain for 5 dose(s), Stop date Limited # of times, Routine, Start date 01/15/20 7:00:00 EDT Lactated Ringers IV Britni 1000 mL 1,000 mL: 1,000 mL, IV, 100 mL/hr, Routine, Start date 01/15/20 7:00:00 EDT, 10 hour(s), Total volume (mL): 1,000, 2.29, m2 Lactated Ringers IV Britni 1000 mL 1,000 mL: 1,000 mL, IV, 150 mL/hr, Routine, Start date 01/15/20 6:00:00 EDT, 6.7 hour(s), Total volume (mL): 1,000, 2.29, m2 Phenergan 25 mg/mL Injection: 12.5 mg = 0.5 mL, Injection, IV Push, q2min PRN Other (see comment) for 2 dose(s), Stop date Limited # of times, Routine, Start date 01/15/20 7:00:00 EDT clindamycin additive + Premix Dextrose 5% Diluent 50 mL: 600 mg = 50 mL, IV Piggyback, PREOP, Routine, Start date 01/15/20 6:00:00 EDT, 100 mL/hr, Infuse over 30 minute(s) gentamicin additive + Sodium Chloride 0.9% intravenous solution 50 mL: 80 mg = 50 mL, IV Piggyback, PREOP, Routine, Start date 01/15/20 6:00:00 EDT, 100 mL/hr, Infuse over 30 minute(s) Documented Medications Documented Celebrate Multivitamin: 1 tab, Oral, Daily, Prophylaxis Cinnamon 500 mg oral capsule: 1,000 mg = 2 cap(s), Oral, BID, Prophylaxis Microgestin FE 1.5/30 oral tablet: 1 tab(s), Oral, Daily, control/menstrual regulation bisoprolol-hydrochlor othiazide 2.5 mg-6.25 mg Tab: 1 tab(s), Oral, Daily, High blood pressure ginkgo oral capsule: 1 tab, Oral, Daily, Prophylaxis lisinopril 20 mg Tab: 20 mg = 1 tab(s), Oral, Daily, High blood pressure loratadine 10 mg oral capsule: 10 mg = 1 cap(s), Oral, Daily, Allergy symptoms metformin 1000 mg oral tablet: 1,000 mg = 1 tab(s), Oral, BID, Blood glucose Histories Past Medical History: No active or resolved past medical history items have been selected or recorded. Family History: No family history items have been selected or recorded. Procedure history: No active procedure history items have been selected or recorded. Social History Social & Psychosocial Habits Alcohol 01/04/2020 Use: Current Type: Wine Frequency: 1-2 times per year 01/04/2020 Risk Assessment: No Risk Substance Abuse 01/04/2020 Risk Assessment: Denies Substance Abuse Tobacco 01/04/2020 Risk Assessment: Denies Tobacco Use . Physical Examination Airway: Mallampati classification: II (soft palate, fauces, uvula visible). Respiratory: Lungs are clear to auscultation. Cardiovascular: Regular rhythm. Review / Management Results review: Lab results 01/15/2020 6:51 EDT Glucose Cap 161 mg/dL HI POC Device SN [id number] POC Username DUYEN YEH 01/15/2020 6:13 EDT U beta hCG Ql Negative 01/04/2020 9:19 EDT Beta hCG Ql Negative ABO/Rh Retype Interp A POS 01/04/2020 9:08 EDT WBC 8.4 E9/L RBC 4.3 E12/L Hgb 12.4 gm/dL Hct 37.1 % MCV 86.2 fL MCH 28.8 pg MCHC 33.4 gm/dL RDW 13.0 % Platelet 266.0 E9/L MPV 7.8 fL PT 10.4 second(s) INR 0.9 NA PTT 27.5 second(s) BUN 12 mg/dL Creatinine 0.6 mg/dL eGFR >60 mL/min/1.73 m2 eGFR AA >60 mL/min/1.73 m2 Sodium Lvl 135 mmol/L Potassium Lvl 4.0 mmol/L Chloride 104 mmol/L CO2 23 mmol/L AGAP 12 mEq/L . ECG interpretation: SINUS RHYTHM WITH SINUS ARRHYTHMIA. Plan [place] [employer] (ASA) physical status classification: Class III. Anesthetic Preoperative Plan Anesthesia: General. . Anesthetic plan, risks, benefits, and alternatives discussed with the patient and/or family. Patient verbalized understanding. Adverse reactions, complications, and alternatives discujssed. Consent signed and on chart.. Normal [facility] Comment on above: Result Comment: Elec tronically Signed By: Jabier Puentes Jr., DO\.br\Date and Time Signed: 01/15/20 07:02 EDT U BetaHcg Qualon 01-15-2020 HCG.beta subunit (U) [Moles/Vol] Negative Normal [facility] Comment on above: Performed By: #### 2 [id number] #### [facility] [address] [place] [address] UA With Cult Reflexon 2019 Bacteria LM Ql (Urine sed) TRACE Normal Trace [facility] Comment on above: Performed By: #### 2 443629, 50037867, 5027142, 1486611, 97986047, 2099333 #### [facility] [address] [place] [address] Bilirubin Ql (U) Negative Normal Negative [facility] Comment on above: Performed By: #### 2 873358, 21315295, 0636838, 4654857, 21301390, 6041385 #### [facility] [address] [place] [address] Clarity (U) CLEAR Normal Clear [facility] Comment on above: Performed By: #### 2 494990, 35217480, 0646612, 6095144, 80016429, 5082628 #### [facility] [address] [place] [address] Color (U) YELLOW Normal Yellow [facility] Comment on above: Performed By: #### 2 972765, 22770702, 0766113, 8235171, 17062238, 5702698 #### [facility] [address] [place] [address] Crystals LM Ql (Urine sed) Present Normal [facility] Comment on above: Performed By: #### 2 459681, 34930462, 1017602, 6960793, 66104374, 2948770 #### [facility] [address] [place] [address] Epithelial cells.squamous LM.HPF (Urine sed) [#/Area] 0-2 Normal 0-2 [facility] Comment on above: Performed By: #### 2 199917, 82373059, 9689096, 4430007, 83515632, 2770814 #### [facility] [address] [place] [address] Glucose Test strip (U) [Mass/Vol] Negative Normal Negative [facility] Comment on above: Performed By: #### 2 065387, 91553033, 4886975, 8022864, 99883425, 8277396 #### [facility] [address] [place] [address] Hemoglobin Ql (U) Negative Normal Negative [facility] Comment on above: Performed By: #### 2 999201, 91679041, 9050547, 4254530, 40892895, 0308262 #### [facility] [address] [place] [address] Ketones (U) [Mass/Vol] Negative Normal Negative [facility] Comment on above: Performed By: #### 2 898123, 33860013, 4154525, 8817315, 73951992, 4215131 #### [facility] [address] [place] [address] Gem.plasma/Lithi um.RBC (Bld) [Mass ratio] 0-3 Normal 0-3 [facility] Comment on above: Performed By: #### 2 585412, 41093978, 8047179, 4076607, 32554882, 9430072 #### [facility] [address] [place] [address] Mucus Ql (Urine sed) 1+ Normal [facility] Comment on above: Performed By: #### 2 349222, 52482091, 7600504, 8622031, 21593917, 2664386 #### [facility] [address] [place] [address] Nitrite Ql (U) Negative Normal Negative [facility] Comment on above: Performed By: #### 2 446036, 92397109, 0342574, 2165206, 80738449, 6747596 #### [facility] [address] [place] [address] pH (U) 5.5 [pH] 5.0-9.0 [facility] Comment on above: Performed By: #### 2 432192, 18786623, 8689040, 3706920, 13498880, 3655697 #### [facility] [address] [place] [address] Protein (U) [Mass/Vol] Negative Normal Negative [facility] Comment on above: Performed By: #### 2 347636, 82560497, 6882826, 0003161, 12793116, 9432801 #### [facility] [address] [place] [address] Specific gravity (U) [Rel density] 1.025 1.005-1.030 [facility] Comment on above: Performed By: #### 2 595896, 89095970, 6071335, 2274144, 73196289, 8689955 #### [facility] [address] [place] [address] UA Spec Desc Lowry Normal [facility] Comment on above: Performed By: #### 2 684517, 60802893, 8621696, 4578711, 28011170, 4966646 #### [facility] [address] [place] [address] Urobilinogen Qn (U) 0.2 {Erasmo'U}/dL Normal 0.0-1.0 [facility] Comment on above: Performed By: #### 2 548998, 30546583, 2493805, 6940294, 17987418, 8078658 #### [facility] [address] [place] [address] WBC Auto Ql (U) Negative Normal Negative [facility] Comment on above: Performed By: #### 2 658570, 85120540, 9275368, 9204776, 70857949, 1336579 #### [facility] [address] [place] [address] WBC LM.HPF (Urine sed) [#/Area] 0-5 Normal 0-5 [facility] Comment on above: Performed By: #### 2 628014, 98051769, 5150245, 4680250, 43830395, 2118726 #### [facility] [address] [place] [address] Coding Summary.on 01-05-2020 Coding Summary. CODING DATE: 01/05/2020 FINAL [facility] DSC STATUS: Home (Routine DC) PAYOR: Medical [place] APC DESCRIPTION 5733 Level 3 Minor Procedures ADMIT DX: REASON FOR VISIT DX: Z01.818 Encounter for other preprocedural examination FINAL DX: PRINCIPAL: Z01.818 Encounter for other preprocedural examination SECONDARY: N81.4 Uterovaginal prolapse, unspecified R10.2 Pelvic and perineal pain PYMT PROC APC STAT DESCRIPTION DOCTOR NAME DATE NOTE: The code number assigned matches the documented diagnosis and / or procedure in the patient's chart. However, the narrative phrase printed from the coding software may appear abbreviated, or result in slightly different terminology. Coded By: Sally Chester CphT Date Saved: 01/05/2020 02:42 pm Normal [facility] ABO/Rh Retypeon 01-04-2020 ABO/Rh Retype Interp Positive Fish [facility] Comment on above: Performed By: #### 1 [id number] #### [facility] [address] [place] [address] B hCG Qualon 01-04-2020 Beta hCG Ql Negative Normal [facility] Comment on above: Performed By: #### 2 9756412 #### [facility] [address] [place] [address] BUNon 01-04-2020 Urea nitrogen [Mass/Vol] 12 mg/dL Normal 5-21 [facility] Comment on above: Performed By: #### 2 553174, 75481842, 1438555, 0864248, 68191615, 4519236 #### [facility] [address] [place] [address] CBC w/Indiceson 01-04-2020 Erythrocyte distribution width (RBC) [Ratio] 13.0 % Normal 10.9-14.2 [facility] Comment on above: Performed By: #### 2 917872, 04387329, 0870347, 0840635, 64100770, 6868735 #### [facility] [address] [place] [address] Hematocrit (Bld) [Volume fraction] 37.1 % Normal 34.0-46.0 [facility] Comment on above: Performed By: #### 2 035581, 44658578, 8050795, 8007028, 03917915, 0955386 #### [facility] [address] [place] [address] Hemoglobin (Bld) [Mass/Vol] 12.4 g/dL Normal 12.0-16.0 [facility] Comment on above: Performed By: #### 2 714152, 74353541, 0946090, 0505111, 08845111, 0223146 #### [facility] [address] [place] [address] MCH (RBC) [Entitic mass] 28.8 pg Normal 27.0-34.0 [facility] Comment on above: Performed By: #### 2 331430, 77817222, 9188735, 7934574, 93026267, 9024389 #### [facility] [address] [place] [address] MCHC (RBC) [Mass/Vol] 33.4 g/dL Normal 31.4-36.0 [facility] Comment on above: Performed By: #### 2 596877, 58445201, 4513599, 4655588, 54999901, 9622066 #### [facility] [address] [place] [address] MCV (RBC) [Entitic vol] 86.2 fL Normal 80.0-100.0 [facility] Comment on above: Performed By: #### 2 929337, 14849629, 6091280, 1827553, 96867840, 5365050 #### [facility] [address] [place] [address] Platelet mean volume (Bld) [Entitic vol] 7.8 fL Normal 6.4-10.8 [facility] Comment on above: Performed By: #### 2 169317, 53096594, 5311885, 6245682, 40357862, 7943720 #### [facility] [address] [place] [address] Platelets (Bld) [#/Vol] 266.0 E9/L Normal 150.0-500.0 [facility] Comment on above: Performed By: #### 2 349386, 68019846, 7396076, 8812448, 68852069, 8805542 #### [facility] [address] [place] [address] RBC (Bld) [#/Vol] 4.3 E12/L Normal 4.3-5.9 [facility] Comment on above: Performed By: #### 2 745838, 72760878, 7029062, 8436667, 25544179, 3035969 #### [facility] [address] [place] [address] WBC corrected for nucl RBC Auto (Bld) [#/Vol] 8.4 E9/L Normal 4.0-11.0 [facility] Comment on above: Performed By: #### 2 547807, 84769337, 1734892, 4742998, 64907322, 8759287 #### [facility] [address] [place] [address] Creatinineon 01-04-2020 Creatinine [Mass/Vol] 0.6 mg/dL Normal 0.5-1.3 [facility] Comment on above: Performed By: #### 2 968998, 83953808, 3342748, 0486642, 73868863, 7557764 #### [facility] [address] [place] [address] Lyteson 01-04-2020 Anion gap [Moles/Vol] 12 mmol/L Normal 6-16 [facility] Comment on above: Performed By: #### 2 190241, 40931802, 7435835, 8350527, 22727776, 6443071 #### [facility] [address] [place] [address] Chloride [Moles/Vol] 104 mmol/L Normal 101-111 [facility] Comment on above: Performed By: #### 2 454751, 21920855, 0000093, 2012012, 91294771, 1110747 #### [facility] [address] [place] [address] CO2 [Moles/Vol] 23 mmol/L Normal 21-31 [facility] Comment on above: Performed By: #### 2 967831, 93610441, 2183131, 5727804, 59861488, 1363105 #### [facility] [address] [place] [address] Potassium [Moles/Vol] 4.0 mmol/L Normal 3.5-5.3 [facility] Comment on above: Performed By: #### 2 567765, 43832880, 4782263, 1611183, 86646047, 9838798 #### [facility] [address] [place] [address] Sodium [Moles/Vol] 135 mmol/L Normal 135-145 [facility] Comment on above: Performed By: #### 2 695260, 10328771, 2684891, 6888374, 64213072, 5337170 #### [facility] [address] [place] [address] PT & PTTon 01-04-2020 aPTT Coag (PPP) [Time] 27.5 second(s) Normal 25.1-36.5 [facility] Comment on above: Result Comment: Hepa rin therapeutic range (represented by Anti-Factor Xa activity of 0.2 - 0.4 U/mL) corresponds to PTT of 56.6 - 109.0 sec. Performed By: #### 2 356813, 56181112, 8135301, 6477725, 71138884, 7946460 #### [facility] [address] [place] [address] INR Coag (PPP) [Relative time] 0.9 {INR} [facility] Comment on above: Result Comment: INR results are specifically intended to assess patients stabilized on long-term Anticoagulation therapy suggested INR?s ?Less Intensive Anticoagulation? 2.0 ? 3.0 Conventional Range 3.0 ? 4.5 Performed By: #### 2 412284, 96293625, 5783199, 6805992, 60811650, 2805972 #### [facility] [address] [place] [address] PT Coag (PPP) [Time] 10.4 second(s) Normal 10.2-12.9 [facility] Comment on above: Performed By: #### 2 209329, 67401362, 8227086, 1325880, 28920637, 2809830 #### [facility] [address] [place] [address] eGFRon 01-04-2020 GFR/1.73 sq M predicted among blacks MDRD (S/P/Bld) [Vol rate/Area] mL/min/{1.73_m2} Normal >=59 [facility] Comment on above: Order Comment: Order added by Discern Expert. Result Comment: eGFR is race adjusted. AA=. Performed By: #### 2 839738, 28337158, 1152287, 2029847, 54393417, 8581949 #### [facility] [address] [place] [address] GFR/1.73 sq M predicted among non-blacks MDRD (S/P/Bld) [Vol rate/Area] mL/min/{1.73_m2} Normal >=59 [facility] Comment on above: Order Comment: Order added by Discern Expert. Result Comment: Access Rep krissy kidney disease could be indicated at eGFR's of less than 60 mL/min/1.73m2. Kidney failure is indicated at less than 15 mL/min/1.73m2. Performed By: #### 2 364959, 75991183, 2762040, 3739097, 24791910, 6502370 #### [facility] [address] [place] [address] Microalb.,Random Uron 2017 Creatinine 162.3 mg/dL Normal 28.0-217.0 [facility] Comment on above: Performed By: #### C NOLVIA ####[address] [place] [address] Microalb/Creat Ratio CANNOT BE CALCULATED Normal <25 [facility] Comment on above: Performed By: #### C LÁZAROMA ####[address] [place] [address] Microalbumin conc. <12 Normal <21 [facility] Comment on above: Performed By: #### C PURMA ####[address] [place] [address] Vital Signs Date Time Vital Sign Value Performing Clinician Karissa blackwell 04-14-2022 22:24-0400 Respiratory rate 17 /min Raf Wilson MD Work Phone: [facility] 04-14-2022 22:20-0400 Diastolic blood pressure 76 mm[Hg] Raf Wilson MD Work Phone: [facility] 04-14-2022 22:20-0400 Heart rate 88 /min Raf Wilson MD Work Phone: [facility] [employer] 04-14-2022 22:20-0400 Systolic blood pressure 131 mm[Hg] Raf Wilson MD Work Phone: [facility] [place] [place] 04-14-2022 22:10-0400 SaO2% (BldA) [Mass fraction] 100 % Raf Wilson MD Work Phone: [facility] [place] 04-14-2022 19:51-0400 Body height 170.2 cm Raf Wilson MD Work Phone: [facility] [place] 04-14-2022 19:51-0400 Body mass index (BMI) [Ratio] 40.27 kg/m2 Raf Wilson MD Work Phone: [facility] [place] [place] 04-14-2022 19:51-0400 Body temperature 100.4 [degF] Raf Wilson MD Work Phone: [facility] [place] [place] 04-14-2022 19:51-0400 Body weight 116.62 kg Raf Wilson MD Work Phone: [facility] [place] [place] 01-01-2022 15:11-0400 Diastolic blood pressure 80 mm[Hg] Desmond Reynolds MD Work Phone: [employer] 01-01-2022 15:11-0400 SaO2% (BldA) [Mass fraction] 100 % Desmond Reynolds MD Work Phone: [employer] 01-01-2022 15:11-0400 Systolic blood pressure 135 mm[Hg] Desmond Reynolds MD Work Phone: [employer] 01-01-2022 14:06-0400 Body mass index (BMI) [Ratio] 39.53 kg/m2 Desmond Reynolds MD Work Phone: [employer] 01-01-2022 14:06-0400 Body temperature 97.7 [degF] Desmond Reynolds MD Work Phone: [employer] 01-01-2022 14:06-0400 Body weight 117.94 kg Desmond Reynolds MD Work Phone: [employer] 01-01-2022 14:06-0400 Heart rate 106 /min Desmond Reynolds MD Work Phone: [employer] 01-01-2022 14:06-0400 Respiratory rate 16 /min Desmond Reynolds MD Work Phone: [employer] 05-08-2021 15:14-0400 Body height 172.7 cm Keo Amaya MD Work Phone: [employer] Work Phone: 05-08-2021 15:14-0400 Body mass index (BMI) [Ratio] 38.77 kg/m2 Keo Amaya MD Work Phone: [employer] Work Phone: 05-08-2021 15:14-0400 Body temperature 99.19 [degF] Keo Amaya MD Work Phone: [employer] Work Phone: 05-08-2021 15:14-0400 Body weight 115.67 kg Keo Amaya MD Work Phone: [employer] Work Phone: 05-08-2021 15:14-0400 Diastolic blood pressure 86 mm[Hg] Keo Amaya MD Work Phone: [employer] Work Phone: 05-08-2021 15:14-0400 Heart rate 92 /min Keo Amaya MD Work Phone: [employer] Work Phone: 05-08-2021 15:14-0400 Respiratory rate 20 /min Keo Amaya MD Work Phone: [employer] Work Phone: 05-08-2021 15:14-0400 SaO2% (BldA) [Mass fraction] 97 % Keo Amaya MD Work Phone: [facility] Work Phone: 05-08-2021 15:14-0400 Systolic blood pressure 150 mm[Hg] Keo Amaya MD Work Phone: [facility] Work Phone: 04-27-2021 11:26-0400 Diastolic blood pressure 89 mm[Hg] MD RAMIREZ GRIMALDO Work Phone: [facility] Work Phone: 04-27-2021 11:26-0400 Heart rate 92 /min MD RAMIREZ GRIMALDO Work Phone: [facility] Work Phone: 04-27-2021 11:26-0400 SaO2% (BldA) [Mass fraction] 95 % MD RAMIREZ GRIMALDO Work Phone: [facility] Work Phone: 04-27-2021 11:26-0400 Systolic blood pressure 129 mm[Hg] MD RAMIREZ GRIMALDO Work Phone: [facility] Work Phone: 04-27-2021 10:39-0400 Body temperature 98.1 [degF] MD RAMIREZ GRIMALDO Work Phone: [facility] Work Phone: 04-27-2021 10:39-0400 Respiratory rate 20 /min MD RAMIREZ GRIMALDO Work Phone: [facility] Work Phone: 04-23-2021 15:35-0400 Body height 170.18 cm MD RAMIREZ GRIMALDO Work Phone: [facility] Work Phone: 04-23-2021 15:35-0400 Body mass index (BMI) [Ratio] 40.5 kg/m2 MD RAMIREZ GRIMALDO Work Phone: [facility] Work Phone: 04-23-2021 15:75-1305 Body weight 117.4 kg MD RAMIREZ GRIMALDO Work Phone: [facility] Work Phone: Encounters Encounter Date Encounter Type Care Provider Facility Start: 06-10-2023 End: 06-11-2023 [facility] Start: 05-23-2023 End: 05-24-2023 [facility] Start: 05-21-2023 End: 05-22-2023 [facility] Start: 05-16-2023 End: 05-17-2023 [facility] Start: 05-13-2023 End: 05-14-2023 [facility] Start: 05-09-2023 End: 05-10-2023 [facility] Start: 05-07-2023 End: 05-08-2023 [facility] Start: 05-07-2023 End: 05-07-2023 Subsequent hospital visit by physician Marcial Chaves PT [facility] Comment on above: Arrived Start: 05-02-2023 End: 05-03-2023 [facility] Start: 04-25-2023 End: 04-26-2023 [facility] Start: 04-23-2023 End: 04-24-2023 [facility] Start: 04-19-2023 [facility] Start: 04-17-2023 End: 04-18-[address] [facility] Start: 04-17-2023 End: 04-17-2023 Subsequent hospital visit by physician Marcial Chaves PT [facility] Comment on above: Arrived Start: 04-15-2023 End: 04-16-2023 [facility] Start: 04-15-2023 End: 04-15-2023 Subsequent hospital visit by physician Nik Canales PTA [facility] Comment on above: Arrived Start: 04-11-2023 End: 04-12-2023 ambulatory DANIE AYERS [facility] Start: 03-11-2023 End: 03-14-2023 ambulatory [facility] Start: 03-01-2023 End: 03-02-2023 ambulatory [facility] Start: 08-22-2022 End: 08-23-2022 ambulatory [facility] Start: 08-22-2022 End: 08-22-2022 Subsequent hospital visit by physician Shyam Reynolds MD Work Phone: [facility] Comment on above: Uncontrolled type 2 diabetes mellitus with hyperglycemia (HCC); Mixed hyperlipidemia; Encounter for hepatitis C screening test for low risk patient; Screening for human immunodeficiency virus without presence of risk factors; Benign essential HTN Start: 04-14-2022 End: 04-14-2022 Emergency department patient visit Raf Wilson MD Work Phone: [facility] ED Comment on above: COVID-19 virus infec tion (Primary Dx); Vasovagal near-syncope Start: 03-15-2022 End: 03-15-2022 Subsequent hospital visit by physician [facility] Covid19 Pat Screening Schedule [facility] Comment on above: Suspected COVID-19 v irus infection Start: 02-12-2022 End: 02-12-2022 Subsequent hospital visit by physician [facility] Ekg [facility] Comment on above: Palpitations Start: 01-20-2022 End: 01-20-2022 Subsequent hospital visit by physician Shyam Reynolds MD Work Phone: [facility] Comment on above: Controlled type 2 di abetes mellitus without complication, without long-term current use of insulin (HCC); Mixed hyperlipidemia Start: 01-01-2022 End: 01-01-2022 Emergency department patient visit Desmond Reynolds MD Work Phone: [facility] ED Comment on above: Lower abdominal pain (Primary Dx) Start: 07-24-2021 End: 07-24-2021 Subsequent hospital visit by physician Shyam Reynolds MD Work Phone: [facility] Comment on above: Mixed hyperlipidemia ; Benign essential HTN; Hair loss Start: 05-08-2021 End: 05-08-2021 Emergency department patient visit Keo Amaya MD Work Phone: [facility] ED Comment on above: Edema of left foot ( Primary Dx) Start: 04-23-2021 End: 04-23-2021 ambulatory [facility] Start: 04-23-2021 End: 04-27-2021 Evaluation and management of inpatient MD RAMIREZ GRIMALDO Work Phone: [facility] Start: 04-17-2021 End: 04-17-2021 Subsequent hospital visit by physician [facility] Covid19 Pat Screening Schedule [facility] Comment on above: Arrived Start: 04-13-2021 End: 04-13-2021 Subsequent hospital visit by physician [facility] Covid19 Pat Screening Schedule [facility] Comment on above: Suspected COVID-19 v irus infection Start: 08-16-2020 End: 08-16-2020 Subsequent hospital visit by physician Shyam Reynolds [facility] Laboratory Comment on above: Mixed hyperlipidemia ; Uncontrolled type 2 diabetes mellitus with hyperglycemia (HCC) Start: 05-02-2020 End: 05-02-2020 Subsequent hospital visit by physician Shyam Reynolds [facility] Laboratory Comment on above: Controlled type 2 di abetes mellitus without complication, without long-term current use of insulin (HCC); Mixed hyperlipidemia; Benign essential HTN Start: 02-26-2018 End: 02-27-2018 Patient encounter [facility] Procedures Date Procedure Procedure Detail Performing Clinician Start: 08-22-2022 Comprehensive metabo lic panel Shyam Reynolds MD Work Phone: Start: 08-22-2022 Lipid panel Shyam Reynolds MD Work Phone: Start: 08-22-2022 PATIENT FASTING? Shyam Reynolds MD Work Phone: Start: 04-14-2022 Radiologic exam ches t single view Raf Wilson MD Work Phone: Start: 04-14-2022 Comprehensive metabo lic panel Raf Wilson MD Work Phone: Start: 04-14-2022 Ecg routine ecg w/le ast 12 lds w/i&r Raf Wilson MD Work Phone: Start: 04-14-2022 COVID-GEE MD Work Phone: Start: 03-15-2022 COVHARDEEP-GEE MD Work Phone: Start: 01-20-2022 Comprehensive metabo lic panel Shyam Reynolds MD Work Phone: Start: 01-20-2022 Lipid panel Shyam Reynolds MD Work Phone: Start: 01-20-2022 PATIENT FASTING? Shyam Reynolds MD Work Phone: Start: 01-20-2022 Urine albumin quantitative Shyam Reynolds MD Work Phone: Start: 01-01-2022 Ct abdomen & pelvis w/contrast material Desmond Reynolds MD Work Phone: Start: 01-01-2022 Blood count complete auto&auto difrntl wbc Desmond Reynolds MD Work Phone: Start: 01-01-2022 Urnls dip stick/tabl et rgnt auto w/o microscopy Desmond Reynolds MD Work Phone: Start: 07-24-2021 Comprehensive metabo lic panel Shyam Reynolds MD Work Phone: Start: 07-24-2021 Lipid panel Shyam Reynolds MD Work Phone: Start: 07-24-2021 PATIENT FASTING? Shyam Reynolds MD Work Phone: Start: 05-08-2021 Dup-scan xtr veins unilateral/limited study Keo Amaya MD Work Phone: Start: 04-23-2021 CT angiography of thorax MD RAMIREZ GRIMALDO Work Phone: Start: 04-23-2021 Plain chest X-ray MD FR MARY GRIMALDO Work Phone: Start: 05-30-2020 Hemoglobin glycosyla holly a1c Shyam Back Work Phone: Start: 05-30-2020 Lipid panel Shyam Back Work Phone: Start: 05-30-2020 PATIENT FASTING? Shyam Back Work Phone: Start: 05-02-2020 Comprehensive metabo lic panel Shyam Back Work Phone: Start: 05-02-2020 Lipid panel Shyam Back Work Phone: Start: 05-02-2020 PATIENT FASTING? Shyam Back Work Phone: Start: 05-02-2020 Urine albumin quantitative Shyam Back Work Phone: Start: 02-26-2018 MICROALBUMIN / CREAT ININE URINE RATIO SHYAM BACK Plan of Treatment Date Care Activity Detail Author Start: 2047 Pneumococcal 0-64 ye ars Vaccine (2 of 2 - PPSV23) Pneumococcal 0-64 years Vaccine (2 of 2 - PPSV23) [facility] Start: 02-15-2027 DTaP/Tdap/Td vaccine (3 - Td or Tdap) DTaP/Tdap/Td vaccine (3 - Td or Tdap) [facility] Start: 02-15-2027 DTaP/Tdap/Td vaccine (3 - Td) DTaP/Tdap/Td vaccine (3 - Td) [place] Start: 03-01-2024 GFR test (Diabetes, CKD 3-4, OR last GFR 15-59) GFR test (Diabetes, CKD 3-4, OR last GFR 15-59) [facility] [employer] Start: 03-01-2024 Hemoglobin A1c measurement A1C test (Diabetic or Prediabetic) [facility] Start: 03-01-2024 Lipid panel Lipids [facility] [employer] Start: 03-01-2024 Urine screening for protein Diabetic Alb to Cr ratio (uACR) test [facility] [employer] Start: 09-09-2023 End: 09-09-2023 Patient encounter procedure [facility] Comment on above: 6m check up Start: 08-23-2023 Depression Screen Depression Screen [facility] [employer] [facility] Start: 08-22-2023 GFR test (Diabetes, CKD 3-4, OR last GFR 15-59) GFR test (Diabetes, CKD 3-4, OR last GFR 15-59) [facility] Start: 08-22-2023 Lipid panel Lipids [facility] Start: 05-16-2023 End: 05-16-2023 Patient encounter procedure 05/16/2023 4:00 PM EDT Appointment [facility] [address] [place] [address] Marcial Chaves PT [facility] Start: 05-13-2023 End: 05-13-2023 Patient encounter procedure 05/13/2023 4:45 PM EDT Appointment [facility] [address] [place] [address] Nik Canales PTA [facility] Start: 05-09-2023 End: 05-09-2023 Patient encounter procedure 05/09/2023 4:30 PM EDT Appointment [facility] [address] [place] [address] Marcial Chaves, PT $ BCBS-20.00 Copay-Rt PT Tendon Dysfunction-Blue Lopez, Fax [phone] [facility] Comment on above: $ BCBS-20.00 Copay-R t PT Tendon Dysfunction-[place], Fax [phone] Start: 04-25-2023 End: 04-25-2023 Patient encounter procedure 04/25/2023 Appointment Physical Therapy Marcial Chaves PT [facility] Start: 04-23-2023 End: 04-23-2023 Patient encounter procedure 04/23/2023 Appointment Physical Therapy Nik Canales PTA [facility] Start: 04-17-2023 Subsequent hospital visit by physician 04/17/2023 Hospital Encounter Physical Therapy Marcial Chaves, PT [facility] Start: 03-19-2023 Influenza vaccination Flu vaccine (# 1) [facility] Start: 02-09-2023 Depression Screen Depression Screen [facility] Start: 01-20-2023 Hemoglobin A1c measurement A1C test (Diabetic or Prediabetic) [facility] Start: 01-20-2023 Lipid panel Lipids [facility] Start: 01-20-2023 Urine screening for protein Diabetic microalbuminuria test [facility] Start: 08-23-2022 End: 08-23-2022 Patient encounter procedure 08/23/2022 Office Visit Shyam Garcia MD [address] [place] [address] [facility] Start: 07-24-2022 Creatinine measurement Creatinine mo [facility] Start: 07-24-2022 Diabetic foot examination Diabetic f oot exam [facility] Start: 07-24-2022 Hemoglobin A1c measurement A1C test (Diabetic or Prediabetic) [facility] Start: 07-24-2022 Lipid panel [facility] Start: 07-24-2022 Potassium monitoring Potassium monit oring [facility] Start: 04-19-2022 Influenza vaccination M [facility] Start: 03-19-2022 Influenza vaccination Flu vaccine (# 1) [facility] Start: 01-22-2022 End: 01-22-2022 Patient encounter procedure 01/22/2022 Office Visit Family Shyam Strickland MD [address] [place] [address] [facility] Start: 11-24-2021 Hemoglobin A1c measurement A1C test (Diabetic or Prediabetic) [facility] Work Phone: Start: 11-24-2021 Lipid panel Lipid screen [facility] Work Phone: Start: 08-30-2021 Depression Screen Depression Screen [facility] Start: 06-13-2021 End: 06-13-2021 Patient encounter procedure 06/13/2021 Office Visit Shyam Garcia MD [address] [place] [address] [phone] [facility] Start: 05-02-2021 Creatinine measurement Creatinine mo [facility] [place], [place] Start: 05-02-2021 Diabetic microalbumi [place] test Diabetic microalbuminuria test [facility] Start: 05-02-2021 HbA1c (Bld) [Mass fraction] A1C test (Diabetic or Prediabetic) [place] Start: 05-02-2021 Lipid panel Lipid screen [place], [place] Start: 05-02-2021 Potassium monitoring Potassium monit [place], [place] Start: 05-02-2021 Urine screening for protein [facility] Start: 04-19-2021 Influenza vaccination Flu vaccine (# 1) [facility] Start: 10-05-2020 Creatinine measurement Creatinine mo nitoring [place] Start: 10-05-2020 HbA1c (Bld) [Mass fraction] A1C test (Diabetic or Prediabetic) [place] Start: 10-05-2020 Lipid panel Lipid screen [place] Start: 10-05-2020 Potassium monitoring Potassium monit [place], [place] Start: 09-07-2020 Diabetic retinal exam Diabetic retin al exam [facility] Start: 09-07-2020 Glaucoma screening Diabetic retinal exam [facility] Start: 08-30-2020 End: 08-30-2020 Office Visit 08/30/2020 Office Visit Family Medicine Shyam Reynolds MD [address] [place] [address] [phone] [facility] Start: 05-03-2020 End: 05-03-2020 Office Visit 05/03/2020 Office Visit Family Shyam Strickland MD [address] [place] [address] [phone] [facility] Start: 04-19-2020 Influenza vaccination Flu vaccine (# 1) [place] Start: 07-20-2019 Diabetic microalbumi [place]akota test Diabetic microalbuminuria test [place] Start: 02-15-2018 Diabetic foot examination Diabetic f oot exam [place] Start: 02-15-2018 Pneumococcal 0-64 ye ars Vaccine (2 - PCV) Pneumococcal 0-64 years Vaccine (2 - PCV) [facility] Start: 2001 Hepatitis B vaccine (1 of 3 - Risk 3-dose series) Hepatitis B vaccine (1 of 3 - Risk 3-dose series) [facility] Start: 2000 Hepatitis C screening Hepatitis C [facility] Start: 1997 HIV screening HIV screen [facility] Start: 1994 COVID-19 Vaccine (1) COVID-19 Vaccin e (1) [facility] Start: 1987 COVID-19 Vaccine (1) COVID-19 Vaccin e (1) [facility] Start: 1983 Varicella vaccine (1 of 2 - 2-dose childhood series) Varicella vaccine (1 of 2 - 2-dose childhood series) [facility] Start: 1982 COVID-19 Vaccine (#1) COVID-19 Vacci ne (#1) [facility] Start: 1982 Hepatitis B vaccine (1 of 3 - 3-dose series) Hepatitis B vaccine (1 of 3 - 3-dose series) [facility] Start: 1982 Hepatitis C screening Hepatitis C [facility] End: 02-12-2022 Cardiac event monitor Cardiac event monitor Cardiac Services Routine Palpitations 1 Occurrences starting 02/12/2022 until 02/12/2022 [facility] [employer] Phone: Comment on above: 1 Occurrences starti ng 02/12/2022 until 02/12/2022 End: 04-13-2021 COVID-19 COVID-19 Lab Routine Suspected COVID-19 virus infection 1 Occurrences starting 04/13/2021 until 04/13/2021 [facility] [employer] Phone: Comment on above: 1 Occurrences starti ng 04/13/2021 until 04/13/2021 COVID-19 [facility] [employer] Phone: End: 04-17-2021 COVID-19 [facility] [employer] Phone: Comment on above: One Time for 1 Occur rences starting 04/17/2021 until 04/17/2021 Once for 1 Occurrenc es starting 04/17/2021 until 04/17/2021 EKG 12 Lead EKG 12 Lead ECG STAT 04/14/2022 8:51 PM EDT [facility] [employer] Work Phone: End: 05-02-2020 HbA1c (Bld) [Mass fraction] Hemoglobin A1C Lab Routine Controlled type 2 diabetes mellitus without complication, without long-term current use of insulin ([facility]) 1 Occurrences starting 05/02/2020 until 05/02/2020 [place] Comment on above: 1 Occurrences starti ng 05/02/2020 until 05/02/2020 HbA1c (Bld) [Mass fraction] Hemoglobin A1C Lab Routine Controlled type 2 diabetes mellitus without complication, without long-term current use of insulin ([facility]) 05/02/2020 6:57 AM EDT [place] End: 01-20-2022 Hemoglobin A1c/Hemoglobin.total in Blood [facility] [employer] Work Phone: Comment on above: 1 Occurrences starti ng 01/20/2022 until 01/20/2022 Lactate [Moles/volum e] in Serum or Plasma [facility] Work Phone: End: 01-20-2022 Microalbumin / Creatinine Urine Ratio Microalbumin / Creatinine Urine Ratio Lab Routine Controlled type 2 diabetes mellitus without complication, without long-term current use of insulin ([facility]) 1 Occurrences starting 01/20/2022 until 01/20/2022 [facility] [employer] [facility] Work Phone: Comment on above: 1 Occurrences starti ng 01/20/2022 until 01/20/2022 Patient Education COVID-19 (Key navirus Disease 2019) (DC) [facility] Work Phone: Patient referral [facility] Work Phone: Immunizations Immunization Date Immunization Notes Care Provider Sharon boucher 02-15-2017 pneumococcal polysac charide vaccine, 23 valent [facility], [place] 02-15-2017 tetanus toxoid, redu zulma diphtheria toxoid, and acellular pertussis vaccine, adsorbed [facility] 04-03-2010 tetanus toxoid, redu zulma diphtheria toxoid, and acellular pertussis vaccine, adsorbed [facility] Schedule [facility] Work Phone: Payers Date Payer Category Payer Unknown [id number] 2015 Unknown [id number] 1982 Unknown [id number] 2.16.8 [id number] 1982 Unknown [id number] 2.16.8 [id number] 1982 Unknown [id number] 2.16.8 [id number] 1982 Unknown [id number] 2.16.8 [id number] 1982 Unknown [id number] 2.16.8 [id number] 1982 Unknown [id number] 2.16.8 [id number] 1982 Unknown [id number] 2.16.8 [id number] 1982 Unknown [id number] 2.16.8 [id number] 1982 Unknown [id number] 2.16.8 [id number] 1982 Unknown [id number] 2.16.8 [id number] 1982 Unknown [id number] 2.16.8 [id number] 1982 Unknown [id number] 2.16.8 [id number] 1982 Unknown [id number] 2.16.8 [id number] 1982 Unknown [id number] 2.16.8 [id number] 1982 Unknown [id number] 2.16.8 [id number] 1982 Unknown [id number] 2.16.8 [id number] 1982 Unknown [id number] 2.16.8 [id number] Social History Date Type Detail Facility Start: 05-17-2020 End: 04-14-2022 Tobacco smoking status NHIS Never smoker [place] Start: 05-17-2020 End: 04-14-2022 Tobacco use and exposure Never used [place] Start: 05-17-2020 End: 02-09-2022 Alcohol intake Current drinker of alcohol (finding) [place] Start: 10-22-2019 History SDOH Financial 4 [place] Start: 10-22-2019 End: 02-07-2023 History SDOH Food Worry 1 [place] Start: 10-22-2019 End: 02-07-2023 History SDOH Transport Med 2 [place] Start: 08-06-2013 Alcohol Comment Rarely, maybe once a year [place] Start: 1980 Sex Assigned At Not on file [place], [place] Start: 02-24-2021 End: 02-07-2023 History SDOH Financial 5 [facility] Work Phone: Start: 04-23-2021 [facility] Work Phone: Start: 04-23-2021 With Family [facility] Work Phone: Start: 04-23-2021 Concerned [facility] Work Phone: Start: 04-23-2021 None [facility] Work Phone: Start: 04-23-2021 Self [facility] Work Phone: Start: 1980 Sex Assigned At Female [facility] Work Phone: Start: 12-22-2021 End: 04-14-2022 Exposure to SARS-CoV-2 (event) Not sure [employer] Start: 04-14-2022 End: 03-04-2023 Alcohol intake Ex-drinker (finding) [facility] Work Phone: Start: 02-07-2023 End: 03-04-2023 History of Social function [facility] Start: 02-07-2023 End: 03-04-2023 Tobacco use [facility] How hard is it for y ou to pay for the very basics like food, housing, medical care, and heating Not hard at all [facility] (I/We) worried maureen er (my/our) food would run out before (I/we) got money to buy more. Never true [facility] At any time in the p ast 12 months, were you homeless or living in penitentiary [including now]? No [facility] Medical Equipment Procedure Code Equipment Code Equipment Origin al Text Equipment Identifier Dates Carmen monitor wi th test strips and lancets. Test BS daily and prn. [id number] Start: 08-04-2013 Goals Date Patient Goal Desired Activity /State Functional Status Date Assessment Result Facility 04-27-2021 Functional status Ambulates [facility] Work Phone: 04-23-2021 Functional status Bathing Ability Indepen dent [facility] Work Phone: Mental Status Date Assessment Result Facility 04-27-2021 Cognitive function Appropriate;Cooperativ e [facility] Work Phone: 04-23-2021 Cognitive function No Impairment [facility] Work Phone: Clinical Notes 04-25-2021 to 04-17-2023 Marcial Chaves, PT - 04/17/2023 3:30 PM Claire Naranjo RN - 04/14/2022 9:06 PM Claire Naranjo RN - 04/14/2022 8:52 PM Karthik Duran RCP - 02/12/2022 8:00 AM EDT Note Date & Type Note Facility 04-17-2023 History of Present illness Narrative Images from the original note were not included. [facility] Daily Note Date: 04/17/2023 Patient Name: Delilah Mancuso : 1980 (42 y.o.) Referring Provider (secondary): Danie Ayers Diagnosis: Right posterior tibialis dysfunction, right posterior tib tear Treatment Diagnosis: Right ankle pain Onset Date: 03/12/23 PT Insurance Information: [employer] Total # of Visits Approved: 8 Per Physician Order Total # of Visits to Date: 3 Plan of Care/Certification Expiration Date: 05/09/23 Pre-Treatment Pain: 2/10 Subjective: 1530: Pain remains about the same. Mildly sore, but has been more active with school lately. No adverse effects from last visit. Assessment Assessment: Good tolerance to IDN. Mild bleeding, mild pain only noted under one needle. No immediate change with this. Improvement noted with SLS today, but still quite challenging for patient. Pain up to 3/10 after treatment. Will continue IDN/US and progression of ankle strength and stretching. Plan Continue with current plan of care Exercises/Modalities/Manual: See DocFlow Sheet Education: Education on progression of exercises. Education on IDN risks and benefits. Consent signed. Goals (Total # of Visits to Date: 3) Short Term Goals Time Frame for Short Term Goals: 4 visits Short Term Goal 1: Patient will demonstrate compliance with HEP to optimize therapy progress Malt House Operator Goals Time Frame for Malt House Operator Goals : 8 visits Penitentiary Goal 1: Patient will demonstrate right ankle MMT to 5/5 in all planes to allow improved ambulation Malt House Operator Goal 2: Patient will demonstrate SLS on right x30 with low pain level Malt House Operator Goal 3: Patient will improve LEFS score from 27/80 to 60/80 to demonstrate functional improvement Post Treatment Pain: 3/10 Time In: 1530 Time Out : 1612 Timed Code Treatment Minutes: 28 Minutes Total Treatment Time: 42 Minutes Marcial Chaves, PT Date: 04/17/2023 documented in this encounter [facility] 04-14-2022 History of Present illness Narrative Patient contacted per patient request. Saud will be coming to the ER t osee patient at her request. Patient states that she thinks she is going to pass out. Patient placed in wheel chair and moved to room 8. EKG ordered. VSS. Patient visibly pale in the face. Patient eyes open and looking at health underwriter entire time and following all commands. documented in this encounter [facility] Phone: 02-12-2022 History of Present illness Narrative The patient was educated on the use of an event monitor. The patient's comprehension was high. The patient was able to verbalize recall. The patient was instructed on how and when to return the monitor. documented in this encounter [facility] Phone: 06-16-2021 Hospital Discharge instructions Additional Instructions Reason for discharge: Met goals for medical plan of care Discharge diagnosis and findings: Covid pneumonia Diabetes mellitus type 2 Diet: ADA diet Activity: As tolerated Please make an appointment to see your primary care physician within 1-2 weeks Medication Management See separate list of medications. Take only the medications on this list as they are ordered. All other medications you have at home are to be put away. You have been given prescriptions for new medications Notify your physician if: Your symptoms worsen or you get a temperature greater than 101F If you get chest pain go the emergency department DIABETIC PATIENTS - Check your blood sugar before meals and at bedtime Record readings and take to your physician If your blood sugar is less than 80 or greater than 300, notify your physician Infection prevention: Frequent handwashing recommended If you smoke, please STOP. Call an acute care nurse at [phone] for any questions regarding these instructions. Your health information can be accessed through an application such as those used on a smartphone. Depending on the chosen application, you may be able to access information such as your medications, allergies, or lab results. If you are interested in using an application, please call the [employer] at [phone] We have appreciated the opportunity to be your healthcare provider. We sincerely hope that we have met your expectations. We strive for excellence. [employer] surveys are mailed to our customers after service is provided and we use your input from the completed and returned surveys to improve our care delivery. We encourage you to submit this feedback so that we may continue to be your hospital of choice. Thank you. Name of RN preparing this discharge: Nicolette Christie RN. [facility] Work Phone: 05-08-2021 Hospital Discharge instructions Additional Instructions Reason for discharge: Met goals for medical plan of care Discharge diagnosis and findings: Covid pneumonia Diabetes mellitus type 2 Diet: ADA diet Activity: As tolerated Please make an appointment to see your primary care physician within 1-2 weeks Medication Management See separate list of medications. Take only the medications on this list as they are ordered. All other medications you have at home are to be put away. You have been given prescriptions for new medications Notify your physician if: Your symptoms worsen or you get a temperature greater than 101F If you get chest pain go the emergency department DIABETIC PATIENTS - Check your blood sugar before meals and at bedtime Record readings and take to your physician If your blood sugar is less than 80 or greater than 300, notify your physician Infection prevention: Frequent handwashing recommended If you smoke, please STOP. Call an acute care nurse at [phone] for any questions regarding these instructions. Your health information can be accessed through an application such as those used on a smartphone. Depending on the chosen application, you may be able to access information such as your medications, allergies, or lab results. If you are interested in using an application, please call the [employer] at [phone] We have appreciated the opportunity to be your healthcare provider. We sincerely hope that we have met your expectations. We strive for excellence. [employer] surveys are mailed to our customers after service is provided and we use your input from the completed and returned surveys to improve our care delivery. We encourage you to submit this feedback so that we may continue to be your hospital of choice. Thank you. Name of RN preparing this discharge: Nicolette Christie RN. [facility] Work Phone: 2021 Hospital Discharge instructions Additional Instructions Reason for discharge: Met goals for medical plan of care Discharge diagnosis and findings: Covid pneumonia Diabetes mellitus type 2 Diet: ADA diet Activity: As tolerated Please make an appointment to see your primary care physician within 1-2 weeks Medication Management See separate list of medications. Take only the medications on this list as they are ordered. All other medications you have at home are to be put away. You have been given prescriptions for new medications Notify your physician if: Your symptoms worsen or you get a temperature greater than 101F If you get chest pain go the emergency department DIABETIC PATIENTS - Check your blood sugar before meals and at bedtime Record readings and take to your physician If your blood sugar is less than 80 or greater than 300, notify your physician Infection prevention: Frequent handwashing recommended If you smoke, please STOP. Call an acute care nurse at [phone] for any questions regarding these instructions. Your health information can be accessed through an application such as those used on a smartphone. Depending on the chosen application, you may be able to access information such as your medications, allergies, or lab results. If you are interested in using an application, please call the [employer] at [phone] We have appreciated the opportunity to be your healthcare provider. We sincerely hope that we have met your expectations. We strive for excellence. [employer] surveys are mailed to our customers after service is provided and we use your input from the completed and returned surveys to improve our care delivery. We encourage you to submit this feedback so that we may continue to be your hospital of choice. Thank you. Name of RN preparing this discharge: Nicolette Christie RN. [facility] Work Phone: 04-27-2021 Note [facility] Patient: DELILAH MANCUSO DISCHARGE SUMMARY Admit Date: 04/23/21 /Age: 09 1980 Attending Physician: Júnior Valadez MD Med Rec #: [id number] Date: 04/27/21 Time of Encounter: 12:03 Provisional admission diagnosis: Covid pneumonia Final diagnosis: Covid pneumonia. Diabetes mellitus type 2 History of Presentation: This a 34-year-old female with past with history of morbid obesity, diabetes, hypertension who presented to the ED with Covid d symptoms for 2 weeks, weakness, cough, headache. Patient reports that she was tested positive for Covid along with all her family members about 1 week prior to this admission. She was doing home quarantine with her symptoms got progressively worse over the last 2 days with increasing cough, shortness of breath, fatigue and weakness. She has a prescription chills. She feels weak. She also reports loss of taste. He was taking howo-gti-[id number] medications for cough and fever but symptoms kept getting worse and hence came to the ER for evaluation. Laboratory evaluation shows normal CBC. BMP is normal, LFTs are normal. CXR shows BL pneumonia in lower lobes of lungs. Covid test is positive (detected). D-dimer is elevated. Patient did undergo CTA chest that showed no PE but showed bilateral infiltrates consistent with Covid pneumonia. EKG sinus rhythm no acute ST-T wave troponins negative. She was started on IV antibiotics, remdesivir and Dexamethasone IV. Patient was admitted to hospital for further evaluation. Hospital Course: Bilateral Covid pneumonia -She was tested positive for Covid about 1 week ago (04/15/21), was doing self quarantine at home but symptoms got progressively worse over the last 2 days and hence presented to the ED for evaluation. -Chest x-ray showed bilateral pneumonia. -D-dimer is elevated. -CTA chest no PE but showed bilateral pneumonia -Treated with antibiotics (Levaquin added-changed to p.o.), IV remdesivir, IV Decadron. -Subcutaneous Lovenox -Supportive care with multivitamins, cough medication -Incentive spirometer -Lasix as needed -Continue supplemental oxygen-she was initially on 2 L. Now on room air. Saturating 93 to 95% on room air for the past 2 days. -Completed remdesivir. -Patient feels safe to go home. -Discharged home on five more days of Decadron, multivitamins, aspirin, supportive care medications. Diabetes mellitus type 2 -Sliding scale follow here. Hypertension -Blood pressure stable. Restart home medications Morbid obesity, BMI 40 Vital Signs: Last Vital Signs Temp 98.1 F 04/27/21 10:39 Pulse 92 04/27/21 11:26 Resp 20 04/27/21 10:39 BP 129/89 04/27/21 11:26 Pulse Ox 95 04/27/21 11:26 General: Resting Comfortably ENT Exam: normal ear pinnae bilaterally Respiratory Exam: Breath sounds normal bilaterally Cardiac Exam: Regular, rate and rhythm GI Exam: Soft, Non tender, Non distended, No Hepatosplenomegaly Neuro Exam: Strength grossly intact in bilateral lower extremities Psych Exam: Alert and oriented x3 Skin Exam: No significant lesion Discharge Medications: Home Medications Bisoprolol/Hydrochlorothiazide [Bisoprolol-Hctz 2.5-6.25 mg Tb] 1 tab PO DAILY 04/23/21 Empagliflozin [Jardiance] 10 mg PO DAILY 04/23/21 Guaifenesin/Dm/Pseudoephedrine [Capmist Dm Tablet] 1 tab PO PRN 04/23/21 Lisinopril [Zestril] 20 mg PO DAILY 04/23/21 Metformin HCl 1,000 mg PO BID 04/23/21 Ascorbic Acid [Vitamin C] 500 mg PO DAILY 30 Days #30 tablet 04/27/21 Aspirin 325 mg PO DAILY 30 Days #30 tablet 04/27/21 Cholecalciferol [Vitamin D3] 1,000 unit PO DAILY 30 Days #30 tablet 04/27/21 Dexamethasone [Decadron] 6 mg PO DAILY 5 Days #5 tablet 04/27/21 Multivitamin/Iron/Folic Acid [Centrum Complete Multivit Tab] 1 each PO DAILY #30 tablet 04/27/21 levoFLOXacin [Levaquin] 500 mg PO DAILY 4 Days #4 tablet 04/27/21 Primary Care Physician: [facility] - 1 week. Discharge Disposition: Home Total time spent at this encounter:: 35 minutes Authenticated on: 04/27/21 120 [id number] CC: Júnior Valadez MD [facility] 04-27-2021 Hospital Discharge instructions Additional Instructions Reason for discharge: Met goals for medical plan of care Discharge diagnosis and findings: Covid pneumonia Diabetes mellitus type 2 Diet: ADA diet Activity: As tolerated Please make an appointment to see your primary care physician within 1-2 weeks Medication Management See separate list of medications. Take only the medications on this list as they are ordered. All other medications you have at home are to be put away. You have been given prescriptions for new medications Notify your physician if: Your symptoms worsen or you get a temperature greater than 101F If you get chest pain go the emergency department DIABETIC PATIENTS - Check your blood sugar before meals and at bedtime Record readings and take to your physician If your blood sugar is less than 80 or greater than 300, notify your physician Infection prevention: Frequent handwashing recommended If you smoke, please STOP. Call an acute care nurse at [phone] for any questions regarding these instructions. Your health information can be accessed through an application such as those used on a smartphone. Depending on the chosen application, you may be able to access information such as your medications, allergies, or lab results. If you are interested in using an application, please call the [employer] at [phone] We have appreciated the opportunity to be your healthcare provider. We sincerely hope that we have met your expectations. We strive for excellence. [employer] surveys are mailed to our customers after service is provided and we use your input from the completed and returned surveys to improve our care delivery. We encourage you to submit this feedback so that we may continue to be your hospital of choice. Thank you. Name of RN preparing this discharge: Nicolette Christie RN. [facility] Work Phone: 04-26-2021 [facility] Patient: DELILAH MANCUSO PHYSICIAN PROGRESS NOTE Admit Date: 04/23/21 /Age: 09 1980 Attending Physician: Júnior Valadez MD Dictating Physician: Júnior Valadez MD Med Rec #: [id number] Date: 04/26/21 Time of Encounter: 10:42 Interval History: Feels better today. Remains on room air. Minimal cough with some yellow and white sputum production. Vital Signs: Last Vital Signs Temp 98.6 F 04/26/21 07:58 Pulse 75 04/26/21 07:58 Resp 18 04/26/21 07:58 BP 142/84 04/26/21 07:58 Pulse Ox 96 04/26/21 09:00 04/24/21 04/25/21 04/26/21 04/27/21 06:59 06:59 06:59 06:59 Weight 117.4 kg General: Resting Comfortably Respiratory Exam: Breath sounds normal bilaterally Cardiac Exam: Regular, rate and rhythm GI Exam: Soft, Non tender Muculoskeletal Exam: Muscle tone normal Neuro Exam: Strength grossly intact in bilateral lower extremities Psych Exam: Alert and oriented x3 Skin Exam: No breakdown Labs: Abnormal Lab Results 04/26/21 06:15 Carbon Dioxide 16.0 L Glucose 168 H Albumin 2.8 L Current Medications: Current Medications Acetaminophen (Acetaminophen (Tylenol) 325 Mg Tablet) 650 mg PO Q6H PRN PRN Reason: Pain Stop: 07/22/21 15:09 Albuterol Sulfate 2.5 mg/ (Ipratropium [place] 0.5 mg) 0 mg IH RESP PRN PRN Reason: Shortness Of Breath Or Wheezing Stop: 07/22/21 15:09 Last Admin: 04/23/21 20:38 Dose: 3 mg Documented by: Dexamethasone Sodium Phosphate (Dexamethasone (Decadron) 4 Mg/1 Ml Vial) 6 mg IVPUSH DAILY RAFAEL Stop: 07/23/21 08:59 Last Admin: 04/26/21 08:13 Dose: 6 mg Documented by: Dextrose (Dextrose 50% 50 Ml Syringe) 50 ml IV UD PRN PRN Reason: Hypoglycemia Stop: 07/22/21 15:09 Enoxaparin Sodium (Enoxaparin (Lovenox) 40 Mg/0.4 Ml Syringe) 40 mg SUBCUT BID RAFAEL Stop: 07/22/21 20:59 Last Admin: 04/26/21 08:13 Dose: 40 mg Documented by: Glucagon (Glucagon (Glucagen) 1 Mg/1 Ml Vial) 1 mg SUBCUT UD PRN PRN Reason: Hypoglycemia Stop: 07/22/21 15:09 Glucose (Dextrose (Insta-Glucose) 40% 31 Gm Gel) 15 gm PO UD PRN PRN Reason: Hypoglycemia Stop: 07/22/21 15:09 Guaifenesin/Dextromethorphan (Guaifenesin/D-Methorphan (Robitussin Dm) 10 Ml Syrup) 10 ml PO Q4H PRN PRN Reason: Cough Stop: 07/23/21 11:42 Last Admin: 04/25/21 21:00 Dose: 10 ml Documented by: REMDESIVIR 100 mg/ Sodium (Chloride) 100 mls @ 200 mls/hr IV DAILY [facility] Stop: 04/27/21 09:29 Last Admin: 04/26/21 09:49 Dose: 200 mls/hr Documented by: Levofloxacin/Dextrose (Levaquin Iv) 500 mg in 100 mls @ 100 mls/hr IV DAILY [facility] Stop: 05/04/21 09:59 Last Admin: 04/26/21 09:49 Dose: Not Given Documented by: Insulin Human Lispro (Insulin Lispro (Humalog) 1 Unit/0.01 Ml Inj) 0 unit SUBCUT TIDWM [facility]; Protocol Stop: 07/22/21 16:59 Last Admin: 04/26/21 08:00 Dose: 2 units Documented by: Lisinopril (Lisinopril (Zestril) 20 Mg Tablet) 20 mg PO DAILY [facility] Stop: 07/23/21 08:59 Last Admin: 04/26/21 08:13 Dose: 20 mg Documented by: Bisoprolol-Hctz 2.5- (6.25 Mg) 1 tab PO DAILY [facility] Stop: 07/23/21 08:59 Last Admin: 04/26/21 08:16 Dose: 1 tab Documented by: Non-Formulary Medication (Empagliflozin [Jardiance]) 10 mg PO DAILY [facility] Stop: 07/23/21 08:59 Last Admin: 04/26/21 08:16 Dose: 10 mg Documented by: - Assessment Bilateral Covid pneumonia -She was tested positive for Covid about 1 week ago, was doing self quarantine at home but symptoms got progressively worse over the last 2 days and hence presented to the ED for evaluation. -Chest x-ray showed bilateral pneumonia. -D-dimer is elevated. -CTA chest no PE but showed bilateral pneumonia -Continue with antibiotics (Levaquin added-changed to p.o.), IV remdesivir, IV Decadron. -Subcutaneous Lovenox -Supportive care with multivitamins, cough medication -Incentive spirometer -Lasix as needed -Continue supplemental oxygen-currently at 2 L/min -Not ready for discharge. -Watch 1 more day. Diabetes mellitus type 2 -Sliding scale. Hypertension -Blood pressure stable restart home occasions Morbid obesity, BMI 40 Meet [facility] Midnight Rule Requirement: Yes Hospital Certify Text: {This admission will require a hospital stay exceeding two midnights for the care and treatment of the following condition} Authenticated on: 04/26/21 1043 [id number] [phone] [id number] CC: [facility] 04-25-2021 Note [facility] Patient: DELILAH MANCUSO PHYSICIAN PROGRESS NOTE Admit Date: 04/23/21 /Age: 09 1980 Attending Physician: Júnior Valadez MD Dictating Physician: Júnior Valadez MD Med Rec #: [id number] Date: 04/25/21 Time of Encounter: 11:34 Interval History: Still feels weak, continues have some cough, shortness of breath. Does not feel ready to go home. - Review of Systems Events since last encounter: Still looks ill Vital Signs: Last Vital Signs Temp 98.6 F 04/25/21 07:42 Pulse 83 04/25/21 07:42 Resp 16 04/25/21 07:42 BP 132/83 04/25/21 07:42 Pulse Ox 95 04/25/21 10:16 04/23/21 04/24/21 04/25/21 04/26/21 06:59 06:59 06:59 06:59 Weight 117.4 kg General: Other - Ill-appearing Respiratory Exam: Breath sounds normal bilaterally Cardiac Exam: Regular, rate and rhythm GI Exam: Soft, Non tender Muculoskeletal Exam: No cyanosis in digits Neuro Exam: Strength grossly intact in bilateral lower extremities Psych Exam: Alert and oriented x3 Skin Exam: No significant lesion Labs: Abnormal Lab Results 04/25/21 04/25/21 06:10 06:10 Lymphocytes # 1.01 L Carbon Dioxide 14.0 L Glucose 158 H Current Medications: Current Medications Acetaminophen (Acetaminophen (Tylenol) 325 Mg Tablet) 650 mg PO Q6H PRN PRN Reason: Pain Stop: 07/22/21 15:09 Albuterol Sulfate 2.5 mg/ (Ipratropium [place]an 0.5 mg) 0 mg IH RESP PRN PRN Reason: Shortness Of Breath Or Wheezing Stop: 07/22/21 15:09 Last Admin: 04/23/21 20:38 Dose: 3 mg Documented by: Dexamethasone Sodium Phosphate (Dexamethasone (Decadron) 4 Mg/1 Ml Vial) 6 mg IVPUSH DAILY RAFAEL Stop: 07/23/21 08:59 Last Admin: 04/25/21 08:22 Dose: 6 mg Documented by: Dextrose (Dextrose 50% 50 Ml Syringe) 50 ml IV UD PRN PRN Reason: Hypoglycemia Stop: 07/22/21 15:09 Enoxaparin Sodium (Enoxaparin (Lovenox) 40 Mg/0.4 Ml Syringe) 40 mg SUBCUT BID RAFAEL Stop: 07/22/21 20:59 Last Admin: 04/25/21 08:23 Dose: 40 mg Documented by: Glucagon (Glucagon (Glucagen) 1 Mg/1 Ml Vial) 1 mg SUBCUT UD PRN PRN Reason: Hypoglycemia Stop: 07/22/21 15:09 Glucose (Dextrose (Insta-Glucose) 40% 31 Gm Gel) 15 gm PO UD PRN PRN Reason: Hypoglycemia Stop: 07/22/21 15:09 Guaifenesin/Dextromethorphan (Guaifenesin/D-Methorphan (Robitussin Dm) 10 Ml Syrup) 10 ml PO Q4H PRN PRN Reason: Cough Stop: 07/23/21 11:42 Last Admin: 04/24/21 21:54 Dose: 10 ml Documented by: REMDESIVIR 100 mg/ Sodium (Chloride) 100 mls @ 200 mls/hr IV DAILY RAFAEL Stop: 04/27/21 09:29 Last Infusion: 04/25/21 09:45 Dose: Infused Documented by: Levofloxacin/Dextrose (Levaquin Iv) 500 mg in 100 mls @ 100 mls/hr IV DAILY [facility] Stop: 05/04/21 09:59 Insulin Human Lispro (Insulin Lispro (Humalog) 1 Unit/0.01 Ml Inj) 0 unit SUBCUT TIDWM [facility]; Protocol Stop: 07/22/21 16:59 Last Admin: 04/25/21 08:20 Dose: 2 units Documented by: Lisinopril (Lisinopril (Zestril) 20 Mg Tablet) 20 mg PO DAILY RAFAEL Stop: 07/23/21 08:59 Last Admin: 04/25/21 08:21 Dose: 20 mg Documented by: Bisoprolol-Hctz 2.5- (6.25 Mg) 1 tab PO DAILY [facility] Stop: 07/23/21 08:59 Last Admin: 04/25/21 08:21 Dose: 1 tab Documented by: Non-Formulary Medication (Empagliflozin [Jardiance]) 10 mg PO DAILY [facility] Stop: 07/23/21 08:59 Last Admin: 04/25/21 08:21 Dose: 10 mg Documented by: - Assessment Bilateral Covid pneumonia -She was tested positive for Covid about 1 week ago, was doing self quarantine at home but symptoms got progressively worse over the last 2 days and hence presented to the ED for evaluation. -Chest x-ray showed bilateral pneumonia. -D-dimer is elevated. -CTA chest no PE but showed bilateral pneumonia -Continue with IV antibiotics (Levaquin added), IV remdesivir, IV Decadron. -Subcutaneous Lovenox -Supportive care with multivitamins, cough medication -Incentive spirometer -Lasix as needed -Continue supplemental oxygen-currently at 2 L/min -Not ready for discharge. Diabetes mellitus type 2 -Sliding scale. Hypertension -Blood pressure stable restart home occasions Morbid obesity, BMI 40 Meet [facility] Midnight Rule Requirement: Yes Hospital Certify Text: {This admission will require a hospital stay exceeding two midnights for the care and treatment of the following condition} Authenticated on: 04/25/21 1135 [id number] CC: [facility] 04-25-2021 Note [facility] Patient: DELILAH MANCUSO HISTORY AND PHYSICAL Admit Date: 04/23/21 /Age: 09 1980 Attending Physician: Júnior Valadez MD Med Rec #: [id number] Date: 04/24/21 Time of Encounter: 10:30 Chief Complaint: Cough, shortness of breath History of Present Illness: This a 34-year-old female with past with history of morbid obesity, diabetes, hypertension who presented to the ED with Covid d symptoms for 2 weeks, weakness, cough, headache. Patient reports that she was tested positive for Covid along with all her family members about 1 week prior to this admission. She was doing home quarantine with her symptoms got progressively worse over the last 2 days with increasing cough, shortness of breath, fatigue and weakness. She has a prescription chills. She feels weak. She also reports loss of taste. He was taking [id number]-cyp-[id number] medications for cough and fever but symptoms kept getting worse and hence came to the ER for evaluation. Laboratory evaluation shows normal CBC. BMP is normal, LFTs are normal. CXR shows BL pneumonia in lower lobes of lungs. Covid test is positive (detected). D-dimer is elevated. Patient did undergo CTA chest that showed no PE but showed bilateral infiltrates consistent with Covid pneumonia. EKG sinus rhythm no acute ST-T wave troponins negative. She was started on IV antibiotics, remdesivir and Dexamethasone IV. Patient was admitted to hospital for further evaluation. History Obtained From: Patient Past Medical/Surgical History: Diabetes mellitus type 2 Hypertension Morbid obesity Family History: Positive:: Cancer, CAD - Social History Lives With:: Spouse Tobacco Use: Never smoker Tobacco Use: Never smok Alcohol: None Drugs: None Resuscitation Status: Full Code Home Medications: Home Medications Bisoprolol/Hydrochlorothiazide [Bisoprolol-Hctz 2.5-6.25 mg Tb] 1 tab PO DAILY 04/23/21 Empagliflozin [Jardiance] 10 mg PO DAILY 04/23/21 Guaifenesin/Dm/Pseudoephedrine [Capmist Dm Tablet] 1 tab PO PRN 04/23/21 Lisinopril [Zestril] 20 mg PO DAILY 04/23/21 Metformin HCl 1,000 mg PO BID 04/23/21 Allergies/Adverse Reactions: Allergies amoxicillin Adverse Reaction (Verified 04/23/21 11:39) Hives - Vital Signs Vital Signs: Last Vital Signs Temp 98.6 F 04/25/21 07:42 Pulse 83 04/25/21 07:42 Resp 16 04/25/21 07:42 BP 132/83 04/25/21 07:42 Pulse Ox 95 04/25/21 07:42 04/23/21 04/24/21 04/25/21 04/26/21 06:59 06:59 06:59 06:59 Weight 117.4 kg - Physical Exam General Exam: Resting Comfortably Respiratory Exam: Other - Bilateral crackles Cardiac Exam: Regular, rate and rhythm GI Exam: Soft, Non tender, Non distended Muculoskeletal Exam: Muscle tone normal, No cyanosis in digits Neuro Exam: Strength grossly intact in bilateral lower extremities Psych Exam: Alert and oriented x3 Skin Exam: No significant lesion Labs: Abnormal Lab Results 04/25/21 04/25/21 06:10 06:10 Lymphocytes # 1.01 L Carbon Dioxide 14.0 L Glucose 158 H Imaging: Images reviewed - Assessment Bilateral Covid pneumonia -She was tested positive for Covid about 1 week ago, was doing self quarantine at home but symptoms got progressively worse over the last 2 days and hence presented to the ED for evaluation. -Chest x-ray showed bilateral pneumonia. -D-dimer is elevated. -CTA chest no PE but showed bilateral pneumonia -Continue with IV antibiotics, IV remdesivir, IV Decadron. -Subcutaneous Lovenox -Supportive care with multivitamins, cough medication -Incentive spirometer -Lasix as needed -Continue supplemental oxygen-currently at 2 L/min Diabetes mellitus type 2 -Sliding scale. Hypertension -Blood pressure stable restart home occasions Morbid obesity, BMI 40 Meet [facility] Midnight Rule Requirement: Yes Hospital Certify Text: {This admission will require a hospital stay exceeding two midnights for the care and treatment of the following condition} - VTE Medications Was VTE prophylaxis medication prescribed?: Yes - VTE Device Was a VTE prophylaxis device ordered?: Yes Authenticated on: 04/25/21920/ 3 3 -4341 CC: Júnior Valadez MD [facility] Chief complaint+Reason for visit Narrative Reason for Visit Pneumonia due to COVID-19 virus [facility] Work Phone: Evaluation note* Diagnosis Suspected COVID-19 virus infection documented in this encounter [facility] Phone: evaluation note* Diagnosis Onset Date Resolution Status Pneumonia due to COVID-19 virus acute [facility] Work Phone: Evaluation note* Diagnosis Edema of left foot- Primary documented in this encounter [facility] Phone: evaluation note* Diagnosis Mixed hyperlipidemia Benign essential HTN Essential hypertension, benign Hair loss Alopecia, unspecified documented in this encounter [facility] Phone: evaluation note* Diagnosis Lower abdominal pain- Primary Abdominal pain, other specified site documented in this encounter [employer] Phone: evaluation note* Diagnosis Controlled type 2 diabetes mellitus without complication, without long-term current use of insulin (HCC) Mixed hyperlipidemia documented in this encounter [facility] SupportLocal Phone: evaluation note* Diagnosis Palpitations documented in this encounter [facility] SupportLocal Phone: evaluation note* Diagnosis Suspected COVID-19 virus infection documented in this encounter [facility] SupportLocal Phone: evaluation note* Diagnosis COVID-19 virus infection- Primary Vasovagal near-syncope Syncope and collapse documented in this encounter [facility] SupportLocal Phone: evaluation note* Diagnosis Uncontrolled type 2 diabetes mellitus with hyperglycemia (HCC) Mixed hyperlipidemia Encounter for hepatitis C screening test for low risk patient Screening for human immunodeficiency virus without presence of risk factors Special screening examination for other specified viral diseases Benign essential HTN Essential hypertension, benign documented in this encounter [facility] SupportLocal Phone: Hospital Discharge instructions* Attachments The following attachments cannot be sent through Care Everywhere. * Edema: Leg and Ankle (Togolese) [facility] Discharge [facility]* Attachments The following attachments cannot be sent through Care Everywhere. * Abdominal Pain (Togolese) [facility]: Hospital Discharge instructions* Attachments The following attachments cannot be sent through Care Everywhere. * Coronavirus Disease (COVID-19): General Info (Togolese) * Coronavirus Disease (COVID-19): Isolation (Togolese) * Vasovagal Syncope (Togolese) * Lightheadedness or Faintness (Togolese) * Fainting ([place]ogolese) [facility] SupportLocal Phone: Summary Purpose Family History No Family History Records FoundNo Family History Records FoundNo Family History Records FoundNo Family History Records FoundNo Family History Records Found Advance Directives No Advanced Directives Records FoundDocuments on File Type Date Recorded Patient 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 Expl anation ACP-Advance Directive ACP-Power of Circulation Tender Advance Directive Response Recorded Date/ Time State DNR No April 23 11:49am Living Will No April 23 4:53pm Advanced Directives Not interested April 10:22am Advance Directive Response Recorded Date/ Time Advanced Directives Not interested April 10:22am Living Will No April 23 4:53pm State DNR No April 23 11:49am Documents on File Type Date Recorded Patient Tower Erector Helper Expl anation ACP-Advance Directive ACP-Power of Circulation Tender Procedure Findings Note Patient: DELILAH MANCUSO MR N: [id number] Age: 39 years Sex: Female : 1980 Associated Diagnoses: None Author: Jabier Puentes Jr., DO Postoperative Information Post Operative Note: Post Anesthesia Care Unit. Anesthetic utilized: General. Health Status Allergies: Allergic Reactions (Selected) Severity Not Documented Amoxicillin- Nausea and rash. Chlorine- Hives and difficulty breathing. Lavender- Difficulty breathing and headache. Problem list: All Problems Diabetes / SNOMED CT 905204540 / Confirmed Uterine prolapse / SNOMED CT 56523230 / Confirmed Resolved: Hypertension / SNOMED CT 5473589931 Physical Examination Vital Signs 01/15/2020 10:51 EDT Temperature Oral 36.7 DegC Heart Rate Monitored 68 bpm Respiratory Rate 16 br/min Systolic Blood Pressure 110 mmHg Diastolic Blood Pressure 70 mmHg Blood Pressure Location Left arm Mean Arterial Pressure, Monitered 83 mmHg SpO2 98 % 01/15/2020 10:30 EDT Heart Rate Monitored 68 bpm Respiratory Rate Monitored 18.0 br/min Systol (more content not included)... Assessments Diagnosis Mixed hyperlipidemia Uncontrolled type 2 diabetes mellitus with hyperglycemia (HCC) Diagnosis Controlled type 2 diabetes mellitus without complication, without long-term current use of insulin (HCC) Mixed hyperlipidemia Benign essential HTN Essential hypertension, benign Reason for Referral Specialty Diagnoses / Procedures Referred By Sierra ramos Referred To Contact Diagnoses Palpitations Procedures Cardiac event [place] [address] Referral ID Status Reason Start Date Expiration Date Visits Re quested Visits Authorized [id number] Open 02/16/2022 02/16/2023 1 1 Additional Source Comments INFORMATION SOURCE (unrecogn ized section and content) DATE CREATED AUTHOR 02/27/2018 [facility] DATE CREATED AUTHOR AUTHOR'S ORGANIZ ATION 01/25/2020 Eleazar [facility] DATE CREATED AUTHOR AUTHOR'S ORGANIZ ATION 04/24/2021 [facility] DATE CREATED AUTHOR AUTHOR'S ORGANIZ ATION 06/17/2021 [facility] DATE CREATED AUTHOR AUTHOR'S ORGANIZ ATION 06/11/2023 [facility] Reason for Visit (unrecogniz ed section and content) Reason Comments Other pt is c/o of left an kle may have a blood clot Reason Comments Abdominal Pain Pt C/O abdominal lisbeth n x 2 days. Pt states that pain started in RLQ and now is in both lower quadrants. Specialty Diagnoses / Procedures Referred By Sierra ramos Referred To Contact Diagnoses Palpitations Procedures Cardiac event monitor Shyam Reyonlds MD [address] [place] [address] Referral ID Status Reason Start Date Expiration Date Visits Re quested Visits Authorized [id number] Open 02/16/2022 02/16/2023 1 1 Reason Comments Fever 101.4 Generalized Body Aches States possible e xposure by student Care Teams (unrecognized sec tion and content) Bowl Turner Relationship Specialty Start Date End Date Shyam Reynolds MD [address] [place] [address] PCP - General Internal Medicine 10/11/11 Bowl Turner Relationship Specialty Start Date End Date Shyam Reynolds MD [address] [place] [address] PCP - General Internal Medicine 10/11/11 Bowl Turner Relationship Specialty Start Date End Date Shyam Reynolds MD [address] [place] [address] PCP - General Internal Medicine 10/11/11 Bowl Turner Relationship Specialty Start Date End Date Shyam Reynolds MD [address] [place] [address] PCP - General Internal Medicine 10/11/11 Bowl Turner Relationship Specialty Start Date End Date Back, MD Shyam [address] [place] [address] PCP - General Internal Medicine 10/11/11 Bowl Turner Relationship Specialty Start Date End Date Back, MD Shyam [address] [place] [address] PCP - General Internal Medicine 10/11/11 Bowl Turner Relationship Specialty Start Date End Date Back, MD Shyam [address] [place] [address] PCP - General Internal Medicine 10/11/11 Bowl Turner Relationship Specialty Start Date End Date Back, MD Shyam [address] [place] [address] PCP - General Internal Medicine 10/11/11 Bowl Turner Relationship Specialty Start Date End Date Back, MD Shyam [address] [place] [address] PCP - General Internal Medicine 10/11/11 Ordered Prescriptions (unrec ognized section and content) Prescription Sig Dispensed Refills Start Date End Da te ondansetron (ZOFRAN) 4 MG tablet Take 1 tablet by mouth every 8 hours as needed for Nausea or Vomiting 12 tablet 0 01/01/2022 01/06/2022 ketorolac (TORADOL) 10 MG tablet Take 1 tablet by mouth every 8 hours as needed for Pain 15 tablet 0 01/01/2022 Scheduled Active and Recently Administ ered Medications (unrecognized section and content) Medication Order 12/30/2021 12/31/2021 01/01/2022 0.9 % sodium chloride bolus (COMPLETED) 1,000 mL (8.48 mL/kg), IntraVENous, at 1,000 mL/hr, Administer over 1 Hours, ONCE, On Sat01/01/22 at 1415, For 1 dose 1416 (New Bag - Prov ider: Nahum Hawkins RN)1519 (Stopped - Provider: Nahum Hawkins RN) ketorolac (TORADOL) injection 15 mg (COMPLETED) Ketorolac is contraindicated in patients with advanced renal impairment and in patients at risk of renal failure due to volume depletion. For 65 years of age and older OR weight less than 50 kg, use 15 mg IV every 6 hours; MAX dose: 60 mg/day. Dose greater than 30 mg must be administered via intramuscular route. Do not administer for more than 5 days., 15 mg, IntraVENous, ONCE, 1 dose, On 01/01/22 at 1415, Do not administer for more than 5 days. 1417 (Given - Provid er: Nahum Hawkins RN) ondansetron (ZOFRAN) injection 4 mg (COMPLETED) 4 mg, IntraVENous, ONCE, 1 dose, On 01/01/22 at 1415 1417 (Given - Provid er: Nahum Hawkins RN) PRN Medication Order 12/30/2021 12/31/2021 01/01/2022 iopamidol (ISOVUE-370) 76 % injection 75 mL (COMPLETED) 75 mL, IntraVENous, IMG ONCE PRN, 1 dose, Starting on 01/01/22 at 1518, Until 01/01/22 at 1528, Other 1528 (Given - Provid er: Belen Starr) Scheduled Medication Order 04/12/2022 04/13/2022 04/14/2022 0.9 % sodium chloride bolus (COMPLETED) 1,000 mL (8.58 mL/kg), IntraVENous, at 1,000 mL/hr, Administer over 60 Minutes, ONCE, On 04/14/22 at 2045, For 1 dose 2045 (New Bag - Prov ider: Jules Naranjo RN)2133 (Stopped - Provider: Verito Ramirez RN) FOR RECORDS PERTAINING TO PATIENTS WHO ARE OR HAVE BEEN ENROLLED IN A CHEMICAL DEPENDENCY/SUBSTANCEABUSE PROGRAM, SOME INFORMATION MAY BE OMITTED. This clinical summary was aggregated from multiple sources. Caution should be exercised in using it in the provision of clinical care. This summary normalizes information from multiple sources, and as a consequence, information in this document may materially change the coding, format and clinical context of patient data. In addition, data may be omitted in some cases. CLINICAL DECISIONS SHOULD BE BASED ON THE PRIMARY CLINICAL RECORDS. [facility]. provides no warranty or guarantee of the accuracy or completeness of information in this document.
--- NOTE | 2023-08-15 14:45 | P.GSHP_ITS ---
History of Present Illness History of Present Illness Chief complaint: disruption of surgical wound, pain d/t hardware Narrative: Patient presents for preadmission testing. Please see HPI from Dr. Walker dated 08/14/2023. Review of Systems ROS Narrative Please see ROS from Dr. Walker dated 08/14/2023. [facility] Medical History (Updated 08/15/23 @ 14:34 by Alyssia Goetz NP) Bronchitis ?J40 - Bronchitis, not specified as acute or chronic (ICD-10) Painful orthopaedic hardware (~07/2023) ?T84.84XA - Pain due to internal orthopedic prosthetic devices, implants and grafts, initial encounter (ICD-10) Disruption of surgical wound (~07/2023) ?T81.31XA - Disruption of external operation (surgical) wound, not elsewhere classified, initial encounter (ICD-10) Anemia ?D64.9 - Anemia, unspecified (ICD-10) COVID-19 ?U07.1 - COVID-19 (ICD-10) Pneumonia ?J18.9 - Pneumonia, unspecified organism (ICD-10) Seasonal allergies ?J30.2 - Other seasonal allergic rhinitis (ICD-10) Hypertension ?I10 - Essential (primary) hypertension (ICD-10) Palpitations ?R00.2 - Palpitations (ICD-10) Diabetes ?E11.9 - Type 2 diabetes mellitus without complications (ICD-10) Foot pain ?M79.673 - Pain in unspecified foot (ICD-10) Posterior tibial tendinitis ?M76.829 - Posterior tibial tendinitis, unspecified leg (ICD-10) Ankle contracture ?M24.573 - Contracture, unspecified ankle (ICD-10) Ankle pain ?M25.579 - Pain in unspecified ankle and joints of unspecified foot (ICD-10) Acquired varus deformity of right ankle ?M21.171 - Varus deformity, not elsewhere classified, right ankle (ICD-10) Acquired valgus deformity of right ankle ?M21.071 - Valgus deformity, not elsewhere classified, right ankle (ICD-10) Surgical History (Updated 08/14/23 @ 14:30 by Alyssia Goetz NP) History of ankle surgery (06/27/23) ?Z98.890 - Other specified postprocedural states (ICD-10) History of hysterectomy ?Z90.710 - Acquired absence of both cervix and uterus (ICD-10) Family History (Updated 06/12/23 @ 10:26 by Alyssia Goetz NP) Other Family history of DVT Family history of breast cancer Family history of colon cancer Family history of diabetes mellitus Family history of hypertension Family history of myocardial infarction Family history of seizures Social History (Updated 06/12/23 @ 10:21 by Alyssia Goetz NP) Within the past year, how often did you have a drink containing alcohol: monthly or less Smoking status: Never smoker Non-prescribed substance use: denies use 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 Highest level of school completed/degree received: Master's degree Meds Home Medications and Allergies Home Medications Medication Instructions Recorded Confirmed Type empagliflozin 10 mg tablet 10 mg PO DAILY 06/12/23 08/15/23 History (Jardiance) lisinopril 20 mg tablet 20 mg PO DAILY 06/12/23 08/15/23 History loratadine 10 mg tablet (Claritin) 10 mg PO DAILY 06/12/23 08/15/23 History metformin 1,000 mg tablet 1,000 mg PO BID 06/12/23 08/15/23 History multivitamin (Daily Multi-Vitamin 1 tab PO DAILY 06/12/23 08/15/23 History tablet) cholecalciferol (vitamin D3) 125 125 mcg PO DAILY 90 days #90 caps 06/27/23 08/15/23 Rx mcg (5,000 unit) capsule alendronate 70 mg tablet 70 mg PO QWEEK 08/15/23 08/15/23 History Allergies Allergy/AdvReac Type Severity Reaction Status Date / Time amoxicillin Allergy Rash Verified 08/15/23 14:30 chlorine Allergy SOB Uncoded 08/15/23 14:30 levender oil Allergy SOB Uncoded 08/15/23 14:30 Exam Narrative Exam Narrative: Constitutional: Awake, alert, comfortable, well-appearing, nontoxic, interactive, vital signs as charted Head: Normocephalic, atraumatic Neck: Supple, normal appearance, normal range of motion, no meningeal signs, no lymphadenopathy Respiratory: No respiratory distress, breath sounds clear Cardiovascular: Regular rate and rhythm, strong and regular heart tones Psychiatric: Oriented ?3, normal affect Assessment and Plan Assessment and Plan (1) Painful orthopaedic hardware: Onset Date: ~07/2023 (2) Disruption of surgical wound: Onset Date: ~07/2023 Plan Excision and debridement of right heel wound, hardware removal and possible replacement, application of skin subsstitute, possible wound VAC scheduled with Dr. Walker 08/16/2023.
[2023-08-15 14:53] LABS: Basophils Percent Auto 0.3 % (0.2-2.0); Eosinophils Absolute Auto 0.2 10^3/uL (0.0-0.7); Eosinophils Percent Auto 2.1 % (0.9-7.0); Hematocrit 42.1 % (36.0-48.0); Hemoglobin 13.6 g/dL (12.0-16.0); Immature Granulocytes Abs Auto 0.03 10^3/uL (0.00-0.03); Immature Granulocytes Pct Auto 0.3 % (0.0-0.5); Lymphocytes Absolute Auto 2.6 10^3/uL (1.2-3.8); Lymphocytes Percent Auto 25.3 % (20.5-60.0); Mean Corpuscular HGB Conc 32.3 g/dL (29.9-35.2); Mean Corpuscular Hemoglobin 28.8 pg (26.7-34.0); Mean Platelet Volume 9.5 fL (9.5-13.5); Monocytes Absolute Auto 0.7 10^3/uL (0.3-0.8); Monocytes Percent Auto 6.7 % (1.7-12.0); Neutrophils Absolute Auto 6.6 10^3/uL (1.4-6.5); Neutrophils Percent Auto 65.3 % (43.0-75.0); Platelet Count 330 10^3/uL (150-450); Red Blood Count 4.73 10^6/uL (4.20-5.40); Red Cell Distribution Width 13.2 % (11.0-15.0); White Blood Count 10.1 10^3/uL (4.0-11.0)
[2023-08-15 15:24] LABS: Anion Gap 16.8; BUN Creatinine Ratio 17.9; Calcium 9.4 mg/dL (8.5-10.1); Carbon Dioxide 23.1 mmol/L (21.0-32.0); Chloride 104 mmol/L (98-107); Estimated GFR (African America >60 (>=60); Estimated GFR (Non-African Ame >60 (>=60); Glucose 174 mg/dL (74-106); Potassium 3.9 mmol/L (3.5-5.1); Sodium 140 mmol/L (136-145)
== END 2023-08-15 14:15 | disposition home or self-care (01) ==
LOC: PST 14:14
PROVIDERS: Visit Provider Podiatrist Foot & Ankle Surgery
DX: Z01.812 Encounter for preprocedural laboratory examination (principal); Z01.818 Encounter for other preprocedural examination; T81.31XA Disruption of external operation (surgical) wound, not elsewhere classified, initial encounter
CPT/HCPCS: 80048; 85025; G0463

== ENCOUNTER 2023-08-16 06:27 | Day surgery (SDC) | payer BC, SELFPAY ==
[2023-08-15 14:40] VITALS: BP 135/81; PULSE 99; RESP 18; TEMP 36.3; O2SAT 97; BMI 39.7
[2023-08-16] VITALS (10 sets, daily range): BP systolic 106–146; BP diastolic 73–89; PULSE 85–94; RESP 14–18; TEMP 35.9–36.3; O2SAT 94–97
--- NOTE | 2023-08-16 | FL_ITS ---
[place] [id number] Patient Name: DELILAH MANCUSO MRN: [id number] date: 1980 Sex: F Assigned Patient Location: [facility] Current Patient Location: Accession/Order Number: [id number] Exam Date: 08/16/2023 07:30 Report Date: 08/20/2023 09:12 At the request of: DANIE AYERS Procedure: FL fluoroscopy <1hr NON-READ EXAM: FL fluoroscopy <1hr NON-READ HISTORY: HARDWARE REMOVAL TECHNIQUE: FINDINGS: Please see Operative Report. Electronically authenticated by: RADIOLOGIST NO Date: 08/20/2023 09:12
--- OUTSIDE RECORDS SUMMARY | 2023-08-16 06:32 | XMS_ITS | CCD ---
Author Name Unknown Address [address] [place] [address] Organization [facility] Care Team Providers Care Anode Builder Name Role Phone BACK, SHYAM Unavailable Unavailable BACK, SHYAM Unavailable Unavailable Back, Shyam Primary Care Provider Back Shyam RODRIGUEZ Primary Care Provider [phone] MD RAMIREZ GRIMALDOIS Emergency Provider MD JÚNIOR VALADEZ Admit Provider MD JÚNIOR VALADEZ Attending Provider Back Shyam RODRIGUEZ Primary Care Provider Back Shyam RODRIGUEZ Primary Care Provider [phone] Back Shyam RODRIGUEZ Primary Care Provider Back [...] sources) Amoxicillin Drug Allergy 4 Nausea Only [place], [place] (15 sources) Chlorine Propensity to adverse reactions to drug 3 Hives [place], [place] (11 sources) Lavender Oil Propensity to adverse reactions to drug 1 Shortness Of Breath [facility] Medications Current Medications Medication Drug Class(es) Dates Sig (Normalized) Sig (Original) [id number] 200 actuat albuterol 0.09 mg/actuat metered dose [...] oral tablet (7 sources) alpha-Adrenergic Agonist, Uncompetitive P-fohuti-M-aspartat e Receptor Antagonist, Sigma-1 Agonist Start: 04-23-2021 [...] tablet 1 11/20/2021 Active Start: 04-17-2021 lisinopril (ID INIVIL;ZESTRIL) 20 MG tablet Indications: Benign essential HTN TAKE 1 TABLET DAILY 90 tablet 1 04/17/2021 Active Start: 11-09-2020 lisinopril (ID INIVIL;ZESTRIL) 20 MG tablet Indications: Benign essential HTN TAKE 1 TABLET DAILY 90 tablet 1 11/09/2020 Active Start: 08-17-2019 lisinopril (ID INIVIL;ZESTRIL) 20 MG tablet Indications: Benign essential [...] Lenny Mane MD 03/12/23 Final result Normal [facility] Comp Metabolic Profon 2022 Albumin [Mass/Vol] 4.1 g/dL Normal 3.5-5.2 [facility] Comment on above: Performed By: #### Z FAST, CP #### [facility] [address] [place] [address] [employer] Operator: eLonides Brunner MD #### GLYHGB, LIPR #### [address] [phone] [employer]: Virgil Shelton MD Alkaline Phos 76 U/L Normal 35-104 [facility] Comment on above: Performed By: #### Z FAST, CP #### [facility] [address] [place], [place] [id number] [employer] Operator: Leonides Brunner MD #### GLYHGB, LIPR #### [address] [phone] [employer]: Virgil Shelton MD ALT [Catalytic activity/Vol] 22 U/L Normal 5-33 [facility] Comment on above: Performed By: #### Z FAST, CP #### [facility] [address] [place], [place] [id number] [employer] Operator: Leonides Brunner MD #### GLYHGB, LIPR #### [address] [address] [employer]: Virgil Shelton MD Anion gap [Moles/Vol] 10 mmol/L Normal 9-17 [facility] Comment on above: Performed By: #### Z FAST, CP #### [facility] [address] [place] [address] [employer]: Leonides Brunner MD #### GLYHGB, LIPR #### [facility] [address] [place] [address] [employer]: Virgil Shelton MD AST [Catalytic activity/Vol] 14 U/L Normal <32 [facility] Comment on above: Performed By: #### Makayla FAST, CP #### [facility] [address] [place] [address] [employer] Operator: Leonides Brunner MD #### SEAN, LIPR #### [address] [place], [place] 7115408 [employer]: Virgil Shelton MD Bilirubin [Mass/Vol] 0.4 mg/dL Normal 0.3-1.2 [facility] Comment on above: Performed By: #### Makayla FAST, CP #### [facility] [address] [place] [address] [employer]: Leonides Brunner MD #### SEAN, LIPR #### [facility] [address] [place] [address] [employer] Operator: Virgil Shelton MD BUN/CRE Ratio 25 High 9-20 [facility] Comment on above: Performed By: #### Makayla FAST, CP #### [facility] [address] [place] [address] [employer] Operator: Leonides Brunner MD #### GLYHGB, LIPR #### [facility] [address] [place] [address] [employer]: Virgil Shelton MD Calcium [Mass/Vol] 9.1 mg/dL Normal 8.6-10.4 [facility] Comment on above: Performed By: #### Makayla FAST, CP #### [facility] [address] [place] [address] [employer]: Leonides Brunner MD #### GLYHGB, LIPR #### [address] [phone] [employer]: Virgil Shelton MD Chloride [Moles/Vol] 104 mmol/L Normal 98-107 [facility] Comment on above: Performed By: #### Makayla FAST, CP #### [facility] [address] [place], [place] [phone] [employer]: Leonides Brunner MD #### JAIMIEHGB, LIPR #### [address] [address] [employer]: Virgil Shelton MD CO2 [Moles/Vol] 23 mmol/L Normal 20-31 [facility] Comment on above: Performed By: #### Makayla FAST, CP #### [facility] [address] [place] [address] [employer] Operator: Leonides Brunner MD #### SEAN, LIPR #### [address] [address] [employer]: Virgil Shelton MD Creatinine [Mass/Vol] 0.6 mg/dL Normal 0.5-0.9 [facility] Comment on above: Performed By: #### Makayla FAST, CP #### [facility] [address] [place] [address] [employer]: Leonides Brunner MD #### GLYHGB, LIPR #### [address] [address] [employer] Operator: Virgil Shelton MD GFR/1.73 sq M.predicted among non-blacks MDRD (S/P/Bld) [Vol rate/Area] mL/min/{1.73_m2} Normal >60 [facility] Comment on above: Result Comment: These results [...] Performed By: #### Z FAST, CP #### [facility] [address] [place] [address] [employer]: Leonides Brunner MD #### GLYHGB, LIPR #### [address] [place] [address] [employer] Operator: Virgil Shelton MD Glucose [Mass/Vol] 145 mg/dL High 70-99 [facility] Comment on above: Performed By: #### Z FAST, CP #### [facility] [address] [place] [address] [employer] Operator: Leonides Brunner MD #### GLYHGB, LIPR #### [address] [place] [address] [employer] Operator: Virgil Shelton MD Potassium [Moles/Vol] 4.0 mmol/L Normal 3.7-5.3 [facility] Comment on above: Performed By: #### Z FAST, CP #### [facility] [address] [place] [address] [employer] Operator: Leonides Brunner MD #### GLYHGB, LIPR #### [facility] [address] [place] [address] [employer] Operator: Virgil Shelton MD Protein [Mass/Vol] 6.9 g/dL Normal 6.4-8.3 [facility] Comment on above: Performed By: #### Z FAST, CP #### [facility] [address] [place] [address] [employer] Operator: Leonides Brunner MD #### GLYHGB, LIPR #### [facility] [address] [place] [address] [employer]: Virgil Shelton MD Sodium [Moles/Vol] 137 mmol/L Normal 135-144 [facility] Comment on above: Performed By: #### Makayla FAST, CP #### [facility] [address] [place] [address] [employer] Operator: Leonides Brunner MD #### GLYHGB, LIPR #### [facility] [address] [place] [address] [employer]: Virgil Shelton MD Urea nitrogen [Mass/Vol] 15 mg/dL Normal 6-20 [facility] Comment on above: Performed By: #### Makayla FAST, CP #### [facility] [address] [place], [place] [phone] [employer] Operator: Leonides Brunner MD #### GLYHGB, LIPR #### [address] [address] [employer]: Virgil Shelton MD Hemoglobin A1Con 03-01-2023 Glucose [Mass/Vol] 146 mg/dL Normal [facility] Comment on above: Result Comment: The ADA and AACC recommend providing the estimated average glucose result to permit better patient understanding of their HBA1c result. Performed By: #### Makayla FAST, CP #### [facility] [address] [place], [place] [phone] [employer]: Leonides Brunner MD #### GLYHGB, LIPR #### [facility] [address] [place] [address] [employer]: Virgil Shelton MD HbA1c (Bld) [Mass fraction] 6.7 % High 4.0-6.0 [facility] Comment on above: Performed By: #### Makayla FAST, CP #### [facility] [address] [place], [place] [phone] [employer]: Leonides Brunner MD #### GLYHGB, LIPR #### [email or web address] [address] [place], [place] 7360[address] [employer]: Virgil Shelton MD Lipid Profileon 03-01-2023 Cholesterol [Mass/Vol] 199 mg/dL Normal <200 [facility] Comment on above: Result Comment: Cholesterol Guidelines: <200 Desirable 200-240 Borderline >240 Undesirable Performed By: #### Makayla FAST, CP #### [facility] [address] [place], [place] [phone] [employer] Operator: Leonides Brunner MD #### GLYHGB, LIPR #### [facility] [address] [place] [phone] [employer]: Virgil Shelton MD Cholesterol in HDL [Mass/Vol] 47 mg/dL Normal >40 [facility] Comment on above: Result Comment: HDL Guidelines: <40 Undesirable 40-59 Borderline >59 Desirable Performed By: #### Makayla FAST, CP #### [facility] [address] [place], [place] [phone] [employer] Operator: Leonides Brunner MD #### JAIMIEHGObi, LIPR #### [facility] [address] [place] [address] [phone] [employer] Operator: Virgil Shelton MD Cholesterol in LDL [Mass/Vol] 100 mg/dL Normal 0-130 [facility] Comment on above: Result Comment: LDL Guidelines: <100 Desirable 100-129 Near to/above Desirable 130-159 Borderline >159 Undesirable Direct (measured) LDL and calculated LDL are not interchangeable tests. Performed By: #### Makayla FAST, CP #### [facility] [address] [place], [place] [phone] [employer]: Leonides Brunner MD #### GLYHGB, LIPR #### [facility] [address] [place] [address] [phone] [employer]: Virgil Shelton MD Cholesterol.total/Ch olesterol in HDL [Mass ratio] 4.2 {ratio} Normal <5 [facility] Comment on above: Performed By: #### Z FAST, CP #### [facility] [address] [place], [place] 1704190 [employer] Operator: Leonides Brunner MD #### GLYHGB, LIPR #### [facility] [address] [place] [address] [employer] Operator: Virgil Shelton MD Triglyceride [Mass/Vol] 259 mg/dL High <150 [facility] Comment on above: Result Comment: Triglyceride Guidelines: <150 Desirable 150-199 Borderline 200-499 High >499 Very high Based on AHA Guidelines for fasting triglyceride, May 2012. Performed By: #### Makayla FAST, CP #### [facility] [address] [place], [place] [phone] [employer] Operator: Leonides Brunner MD #### GLYHGB, LIPR #### [facility] [address] [place] [address] [employer]: Virgil Shelton MD Microalb.,Random Uron 2022 Creatinine [Mass/Vol] 134.1 mg/dL Normal 28.0-217.0 [facility] Comment on above: Performed By: #### U RNMAB #### [facility] [address] [place] [address] [employer]: Virgil Shelton MD Microalb/Creat Ratio Can not be calculated Normal <25 [facility] Comment on above: Performed By: #### U RNMAB #### [facility] [address] [place] [address] [employer]: Virgil Shelton MD Microalbumin conc. <12 Normal <21 [facility] Comment on above: Performed By: #### U RNMAB #### [facility] [facility] [address] [place] [address] [employer]: Virgil Shelton MD Patient fasting?on 3 Patient fasting? yes Normal [facility] Comment on above: Performed By: #### Z FAST, CP #### [facility] [address] [place], [place] 3228290 [employer] Operator: Leonides Brunner MD #### GLYHGB, LIPR #### [address] [place], [place] 7830708 [employer]: Virgil Shelton MD Comp Metabolic Profon 2022 Albumin [Mass/Vol] 3.9 g/dL Normal 3.5-5.2 [facility] Comment on above: Performed By: #### Makayla FAST, CP #### [facility] [address] [place], [place] [phone] [employer] Operator: Leonides Brunner MD #### GLYHGB, LIPR, HIVCMB, AHCV #### [address] [phone] [employer]: Virgil Shelton MD Alkaline Phos 73 U/L Normal 35-104 [facility] Comment on above: Performed By: #### Makayla FAST, CP #### [facility] [address] [place], [place] [phone] [employer] Operator: Leonides Brunner MD #### GLYHGB, LIPR, HIVCMB, AHCV #### [address] [phone] [employer]: Virgil Shelton MD ALT [Catalytic activity/Vol] 19 U/L Normal 5-33 [facility] Comment on above: Performed By: #### Z FAST, CP #### [facility] [address] [place], [place] 8581990 [employer] Operator: Leonides Brunner MD #### GLYHGB, LIPR, HIVCMB, AHCV #### [address] [phone] [employer]: Virgil Shelton MD Anion gap [Moles/Vol] 10 mmol/L Normal 9-17 [facility] Comment on above: Performed By: #### Makayla FAST, CP #### [facility] [address] [place], [place] 8623090 [employer] Operator: Leonides Brunner MD #### GLYHGB, LIPR, HIVCMB, AHCV #### [address] [phone] [employer] Operator: Virgil Shelton MD AST [Catalytic activity/Vol] 12 U/L Normal <32 [facility] Comment on above: Performed By: #### Makayla FAST, CP #### [facility] [address] [place], [place] 1317690 [employer] Operator: Leonides Brunner MD #### GLYHGB, LIPR, HIVCMB, AHCV #### [address] [phone] [employer]: Virgil Shelton MD Bilirubin [Mass/Vol] 0.3 mg/dL Normal 0.3-1.2 [facility] Comment on above: Performed By: #### Makayla FAST, CP #### [facility] [address] [place], [place] 5189390 [employer] Operator: Leonides Brunner MD #### GLYHGB, LIPR, HIVCMB, AHCV #### [address] [phone] [employer]: Virgil Shelton MD BUN/CRE Ratio 17 Normal 9-20 [facility] Comment on above: Performed By: #### Makayla FAST, CP #### [facility] [address] [place], [place] 1514990 [employer] Operator: Leonides Brunner MD #### GLYHGB, LIPR, HIVCMB, AHCV #### [address] [place], [place] 7134[address] [employer] Operator: Virgil Shelton MD Calcium [Mass/Vol] 8.6 mg/dL Normal 8.6-10.4 [facility] Comment on above: Performed By: #### Z FAST, CP #### [facility] [address] [place], [place] 5387790 [employer] Operator: Leonides Brunner MD #### GLYHGB, LIPR, HIVCMB, AHCV #### [facility] [address] [place], [place] 8614808 [employer] Operator: Virgil Shelton MD Chloride [Moles/Vol] 101 mmol/L Normal 98-107 [facility] Comment on above: Performed By: #### Z FAST, CP #### [facility] [address] [place], [place] 0180690 [employer] Operator: Leonides Brunner MD #### GLYHGB, LIPR, HIVCMB, AHCV #### [address] [phone] [employer]: Virgil Shelton MD CO2 [Moles/Vol] 23 mmol/L Normal 20-31 [facility] Comment on above: Performed By: #### Z FAST, CP #### [facility] [address] [place], [place] 1073390 [employer] Operator: Leonides Brunner MD #### GLYHGB, LIPR, HIVCMB, AHCV #### [address] [phone] [employer]: Virgil Shelton MD Creatinine [Mass/Vol] 0.63 mg/dL Normal 0.50-0.90 [facility] Comment on above: Performed By: #### Z FAST, CP #### [facility] [address] [place], [place] 8723390 [employer] Operator: Leonides Brunenr MD #### GLYHGB, LIPR, HIVCMB, AHCV #### [facility] [facility] [address] [place], [place] [phone] [employer] Operator: Virgil Shelton MD GFR/1.73 sq M.predicted among non-blacks MDRD (S/P/Bld) [Vol rate/Area] mL/min/{1.73_m2} Normal >60 [facility] Comment on above: Result Comment: Effective May [...] Performed By: #### Z FAST, CP #### [facility] [address] [place] [address] [employer] Operator: Leonides Brunner MD #### GLYHGB, LIPR, HIVCMB, AHCV #### [address] [place] [address] [employer] Operator: Virgil Shelton MD Glucose [Mass/Vol] 141 mg/dL High 70-99 [facility] Comment on above: Performed By: #### Z FAST, CP #### [facility] [address] [place] [address] [employer] Operator: Leonides Brunner MD #### GLYHGB, LIPR, HIVCMB, AHCV #### [facility] [facility] [place], [place] 5408008 [employer] Operator: Virgil Shelton MD Potassium [Moles/Vol] 4.2 mmol/L Normal 3.7-5.3 [facility] Comment on above: Performed By: #### Z FAST, CP #### [facility] [address] [place] [address] [employer] Operator: Leonides Brunner MD #### GLYHGB, LIPR, HIVCMB, AHCV #### [address] [place], [place] 833[address]8 [employer] Operator: Virgil Shelton MD Protein [Mass/Vol] 6.6 g/dL Normal 6.4-8.3 [facility] Comment on above: Performed By: #### Z FAST, CP #### [facility] [address] [place] [phone] [employer] Operator: Leonides Brunner MD #### GLYHGB, LIPR, HIVCMB, AHCV #### [address] [place] [phone] [employer]: Virgil Shelton MD Sodium [Moles/Vol] 134 mmol/L Low 135-144 [facility] Comment on above: Performed By: #### Z FAST, CP #### [facility] [address] [place] [phone] [employer] Operator: Leonides Brunner MD #### GLYHGB, LIPR, HIVCMB, AHCV #### [phone] [employer]: Virgil Shelton MD Urea nitrogen [Mass/Vol] 11 mg/dL Normal 6-20 [facility] Comment on above: Performed By: #### Z FAST, CP #### [facility] [address] [place] [phone] [employer] Operator: Leonides Brunner MD #### GLYHGB, LIPR, HIVCMB, AHCV #### [address] [place] [address] [employer]: Virgil Shelton MD Comprehensive Metabolic Pane nadia 08-22-2022 Albumin [Mass/Vol] 3.9 g/dL 3.5 - 5.2 g/dL [facility] ALP (Bld) [Catalytic activity/Vol] 73 U/L 35 - 104 U/L [facility] ALT [Catalytic activity/Vol] 19 U/L 5 - 33 U/L [facility] Anion gap [Moles/Vol] 10 mmol/L 9 - 17 mmol/L [facility] AST [Catalytic activity/Vol] 12 U/L NINF - 32 U/L [facility] Bilirubin [Mass/Vol] 0.3 mg/dL 0.3 - 1 .2 mg/dL [facility] Calcium [Mass/Vol] 8.6 mg/dL 8.6 - 10. 4 mg/dL [facility] Chloride [Moles/Vol] 101 mmol/L 98 - 10 7 mmol/L [facility] CO2 [Moles/Vol] 23 mmol/L 20 - 31 mmol/L [facility] Creatinine [Mass/Vol] 0.63 mg/dL 0.50 - 0.90 mg/dL [facility] GFR/1.73 sq M.predicted MDRD (S/P/Bld) [Vol rate/Area] - PINF [facility] Comment on above: Effective May 21, 2022 [...] 141 mg/dL High 70 - 99 mg/dL [facility] Interpretation and review of laboratory results Abnormal [facility] Potassium [Moles/Vol] 4.2 mmol/L 3.7 - 5.3 mmol/L [facility] Protein [Mass/Vol] 6.6 g/dL 6.4 - 8.3 g/dL [facility] Sodium [Moles/Vol] 134 mmol/L Low 135 - 144 mmol/L [facility] Urea nitrogen (BldV) [Mass/Vol] 11 mg/dL 6 - 20 mg/dL [facility] Urea nitrogen/Creatinine (Bld) [Mass ratio] 17 9 - 20 [facility] HIV Ag/Abon 08-22-2022 HIV Ag/Ab Non-Reactive Normal NR [facility] Comment on above: Result Comment: No l aboratory evidence of HIV infection. If acute HIV infection is suspected, consider testing for HIV-1 RNA. Performed By: #### Makayla FAST, CP #### [facility] [address] [place], [place] [phone] [employer]: Leonides Brunner MD #### GLYHGB, LIPR #### [facility] [facility] [address] [place] [address] [employer] Operator: Virgil Shelton MD HIV Screenon 08-22-2022 HIV Ag/Ab Non-Reactive NONREACTIVE [facility] Comment on above: No laboratory eviden ce of HIV infection. If acute HIV infection is suspected, consider testing for HIV-1 RNA. [facility] Hemoglobin A1Con 08-22-2022 Glucose [Mass/Vol] 140 mg/dL Normal [facility] Comment on above: Result Comment: The ADA and AACC recommend providing the estimated average glucose result to permit better patient understanding of their HBA1c result. Performed By: #### Makayla FAST, CP #### [facility] [address] [place] [address] [employer]: Leonides Brunner MD #### GLYHGB, LIPR #### [facility] [facility] [address] [place] [address] [employer]: Virgil Shelton MD HbA1c (Bld) [Mass fraction] 6.5 % High 4.0-6.0 [facility] Comment on above: Performed By: #### Makayla FAST, CP #### [facility] [address] [place] [address] [employer]: Leonides Brunner MD #### GLYHGB, LIPR #### [facility] [facility] [address] [place], [place] [phone] [employer] Operator: Virgil Shelton MD Glucose [Mass/Vol] 140 mg/dL [facility] Comment on above: The ADA and AACC rec ommend providing the estimated average glucose result to permit better patient understanding of their HBA1c result. HbA1c (Bld) [Mass fraction] 6.5 % High 4.0 - 6.0 % [facility] Interpretation and review of laboratory results Abnormal [facility] Hep C Abon 08-22-2022 Hep C Ab Non-Reactive Normal NR [facility] Comment on above: Result Comment: The [...] Performed By: #### Z FAST, CP #### [facility] [address] [place] [address] [employer] Operator: Leonides Brunner MD #### GLYHGB, LIPR, HIVCMB, AHCV #### [facility] [address] [place] [address] [employer]: Virgil Shelton MD Hepatitis C Antibodyon 08-22 Hepatitis C Ab Non-Reactive NONREACTIVE [facility] Comment on above: The hepatitis C procedure [...] recommended by ordering HCV RNA by PCR. [facility] Lipid Panelon 08-22-2022 Cholesterol [Mass/Vol] 209 mg/dL High NINF - 200 mg/dL [facility] Comment on above: Cholesterol Guidelines: <200 Desirable 200-240 Borderline >240 Undesirable Cholesterol in HDL [Mass/Vol] 49 mg/dL 40 - PINF mg/dL [facility] Comment on above: HDL Guidelines: <40 Undesirable 40-59 Borderline >59 Desirable Cholesterol in LDL [Mass/Vol] 105 mg/dL 0 - 130 mg/dL [facility] Comment on above: LDL Guidelines: <100 Desirable 100-129 Near to/above Desirable 130-159 Borderline >159 Undesirable Direct (measured) LDL and calculated LDL are not interchangeable tests. Cholesterol.total/Ch olesterol in HDL [Mass ratio] 4.3 {ratio} NINF - 5 [facility] Interpretation and review of laboratory results Abnormal [facility] Triglyceride [Mass/Vol] 275 mg/dL High NINF - 150 mg/dL [facility] Comment on above: Triglyceride Guidelines: <150 Desirable 150-199 Borderline 200-499 High >499 Very high Based on AHA Guidelines for fasting triglyceride, May 2012. [facility] Lipid Profileon 08-22-2022 Cholesterol [Mass/Vol] 209 mg/dL High <200 [facility] Comment on above: Result Comment: Cholesterol Guidelines: <200 Desirable 200-240 Borderline >240 Undesirable Performed By: #### Makayla FAST, CP #### [facility] [address] [place] [id number] [employer]: Leonides Brunner MD #### GLYHGB, LIPR, HIVCMB, AHCV #### [facility] [employer] [address] [place] [address] [employer]: Virgil Shelton MD Cholesterol in HDL [Mass/Vol] 49 mg/dL Normal >40 [facility] Comment on above: Result Comment: HDL Guidelines: <40 Undesirable 40-59 Borderline >59 Desirable Performed By: #### Z FAST, CP #### [facility] [address] [place] [id number] [employer]: Leonides Brunner MD #### GLYHGB, LIPR, HIVCMB, AHCV #### [facility] [employer] [address] [place] [address] [employer]: Virgil Shelton MD Cholesterol in LDL [Mass/Vol] 105 mg/dL Normal 0-130 [facility] Comment on above: Result Comment: LDL Guidelines: <100 Desirable 100-129 Near to/above Desirable 130-159 Borderline >159 Undesirable Direct (measured) LDL and calculated LDL are not interchangeable tests. Performed By: #### Z FAST, CP #### [facility] [address] [place], [place] [id number] [employer]: Leonides Brunner MD #### GLYHGB, LIPR, HIVCMB, AHCV #### [facility] [employer] [address] [place], [place] [phone] [employer]: Virgil Shelton MD Cholesterol.total/Ch olesterol in HDL [Mass ratio] 4.3 {ratio} Normal <5 [facility] Comment on above: Performed By: #### Makayla FAST, CP #### [facility] [address] [place], [place] [phone] [employer]: Leonides Brunner MD #### GLYHGB, LIPR, HIVCMB, AHCV #### [facility] [employer] [address] [place], [place] [phone] [employer]: Virgil Shelton MD Triglyceride [Mass/Vol] 275 mg/dL High <150 [facility] Comment on above: Result Comment: Triglyceride Guidelines: <150 Desirable 150-199 Borderline 200-499 High >499 Very high Based on AHA Guidelines for fasting triglyceride, May 2012. Performed By: #### Makayla FAST, CP #### [facility] [address] [place], [place] [id number] [employer]: Leonides Brunner MD #### GLYHGB, LIPR, HIVCMB, AHCV #### [facility] [employer] [address] [place], [place] [phone] [employer]: Virgil Shelton MD Patient Fasting?on 3 Patient Fasting? YES [facility] Patient fasting?on 3 Patient fasting? YES Normal [facility] Comment on above: Performed By: #### Z FAST, CP #### [facility] [address] [facility] [place] [address] [employer]: Leonides Brunner MD #### GLYHGB, LIPR, HIVCMB, AHCV #### [facility] [address] [place] [address] [employer]: Virgil Shelton MD APTTon 04-14-2022 aPTT Coag (Bld) [Time] 28.2 s [facility] Comment on above: IV Heparin Therapy Range: 62.0-94.0 CBC with Auto Differentialon 04-14-2022 Absolute Eos # 0.00 [facility] Absolute Lymph # 0.80 Low [facility] Absolute Jewell # 0.70 [facility] Basophils (Bld) [#/Vol] 0.00 10*3/uL [facility] Basophils/100 WBC (Bld) 0 % 0 - 2 % [facility] Differential Type YES [facility] Eosinophils/100 WBC (Bld) 0 % 0 - 5 % [facility] Hematocrit (Bld) [Volume fraction] 41.3 % 36 - 46 % [facility] Hemoglobin (Bld) [Mass/Vol] 14.1 g/dL 12 - 16 g/dL [facility] Interpretation and review of laboratory results Abnormal [facility] Lymphocytes/100 WBC (Bld) 7 % Low 15 - 40 % [facility] MCH (RBC) [Entitic mass] 28.4 pg 26 - 34 pg [facility] MCHC (RBC) [Mass/Vol] 34.1 g/dL 31 - 37 g/dL [facility] MCV (RBC) [Entitic vol] 83.5 fL 80 - 100 fL [facility] Monocytes/100 WBC (Bld) 6 % 4 - 8 % [facility] Platelet distribution width (Bld) [Ratio] 13.4 % 12.1 - 15.2 % [facility] Platelets (Bld) [#/Vol] 276 10*3/uL [facility] RBC (Bld) [#/Vol] 4.95 10*6/uL 4 - 5.2 m/uL [facility] Segmented neutrophils/100 WBC (Bld) 87 % High 47 - 75 % [facility] Segs Absolute 10.60 High [facility] WBC (Bld) [#/Vol] 12.1 10*3/uL High [facility] COVID-19, Rapidon 04-14-2022 Interpretation and review of laboratory results Abnormal [facility] SARS-CoV-2 (COVID-19) RNA PINEDA+probe Ql (Unsp spec) Detected Abnormal Not Detected [facility] Comment on above: Rapid NAAT: The specimen [...] this assay. Fact sheet for Healthcare Providers: https://www.fda.gov/media/496442/download Fact sheet for Patients: https://www.fda.gov/media/340734/download Methodology: Isothermal Nucleic Acid Amplification Results reported to the appropriate Health Department Specimen Description .NASOPHARYNGEAL SWAB [facility] Comprehensive Metabolic Pane nadia 04-14-2022 Albumin [Mass/Vol] 4.2 g/dL 3.5 - 5.2 g/dL [facility] ALP (Bld) [Catalytic activity/Vol] 90 U/L 35 - 104 U/L [facility] ALT [Catalytic activity/Vol] 21 U/L 5 - 33 U/L [facility] Anion gap [Moles/Vol] 14 mmol/L 9 - 17 mmol/L [facility] AST [Catalytic activity/Vol] 14 U/L NINF - 32 U/L [facility] Bilirubin [Mass/Vol] 0.29 mg/dL Low 0.3 - 1 .2 mg/dL [facility] Calcium [Mass/Vol] 9.2 mg/dL 8.6 - 10. 4 mg/dL [facility] Chloride [Moles/Vol] 102 mmol/L 98 - 10 7 mmol/L [facility] CO2 [Moles/Vol] 21 mmol/L 20 - 31 mmol/L [facility] Creatinine [Mass/Vol] 0.77 mg/dL 0.5 - 0.9 mg/dL [facility] Free PSA/Total PSA [Mass fraction] 7.2 g/dL 6.4 - 8.3 g/dL [facility] GFR >60 60 - PI NF mL/min [facility] GFR Non- >60 60 - PINF mL/min [facility] GFR/1.73 sq M.predicted MDRD (S/P/Bld) [Vol rate/Area] [facility] Comment on above: Average GFR for 30-3 9 years old: 107 mL/min/1.73sq m Chronic Kidney Disease: <60 mL/min/1.73sq m Kidney failure: <15 mL/min/1.73sq m eGFR calculated using average adult body mass. Additional eGFR calculator available at: http://www.[employer]/multiple_crcl_2012.htm Glucose [Mass/Vol] 181 mg/dL High 70 - 99 mg/dL [facility] Interpretation and review of laboratory results Abnormal [facility] Potassium [Moles/Vol] 3.8 mmol/L 3.7 - 5.3 mmol/L [facility] Sodium [Moles/Vol] 137 mmol/L 135 - 144 mmol/L [facility] Urea nitrogen (BldV) [Mass/Vol] 9 mg/dL 6 - 20 mg/dL [facility] Urea nitrogen/Creatinine (Bld) [Mass ratio] 12 9 - 20 [facility] No Panel Informationon 04-14 [facility] Protime-INRon 04-14-2022 INR Coag (Bld) [Relative time] 1.0 {INR} [facility] Comment on above: Non-therapeutic Range: INR = 0.9-1.2 Therapeutic Range: Moderate Anticoagulant Intensity: INR = 2.0-3.0 High Anticoagulant Intensity: INR = 2.5-3.5 PT Coag (PPP) [Time] 13 s [facility] Troponinon 04-14-2022 Troponin, High Sensitivity ng/L 0 - 14 ng/L [facility] [email or web address] Comment on above: High Sensitivity Troponin values cannot be compared with other Troponin methodologies. Patients with high levels of Biotin oral intake (i.e >5mg/day) may have falsely decreased Troponin levels. Samples collected within 8 hours of biotin intake may require additional information for diagnosis. [facility] [email or web address] XR CHEST PORTABLEon 04-14-20 SARS-CoV-2 (COVID-19) Ab [...] acute change. IMPRESSION: Negative AP portable chest. [facility] [employer] Work Phone: Radiology Study observation (narrative) [facility] [employer] Work Phone: XR CHEST PORTABLEOrdered By: Mary Kay Macdonald on 04-14-2022 [facility] [email or web address] Work Phone: COVID-19, Rapidon 03-15-2022 SARS-CoV-2 (COVID-19) RNA PINEDA+probe Ql (Unsp spec) Not detected Not Detected [facility] [employer] Comment on above: Rapid NAAT: The specimen [...] management decisions. Fact sheet for Healthcare Providers: https://www.fda.gov/media/163911/download Fact sheet for Patients: https://www.fda.gov/media/271139/download Methodology: Isothermal Nucleic Acid Amplification Specimen Description .NASOPHARYNGEAL SWAB [facility] Comprehensive Metabolic Pane nadia 01-20-2022 Albumin [Mass/Vol] 4.3 g/dL 3.5 - 5.2 g/dL [facility] ALP (Bld) [Catalytic activity/Vol] 90 U/L 35 - 104 U/L [facility] ALT [Catalytic activity/Vol] 32 U/L 5 - 33 U/L [facility] Anion gap [Moles/Vol] 13 mmol/L 9 - 17 mmol/L [facility] AST [Catalytic activity/Vol] 20 U/L <32 [facility] Bilirubin [Mass/Vol] 0.31 mg/dL 0.30 - 1.20 mg/dL [facility] Calcium [Mass/Vol] 9.3 mg/dL 8.6 - 10. 4 mg/dL [facility] Chloride [Moles/Vol] 100 mmol/L 98 - 10 7 mmol/L [facility] CO2 [Moles/Vol] 22 mmol/L 20 - 31 mmol/L [facility] Creatinine [Mass/Vol] 0.69 mg/dL 0.50 - 0.90 mg/dL [facility] Free PSA/Total PSA [Mass fraction] 7.0 g/dL 6.4 - 8.3 g/dL [facility] GFR >60 >60 mL/min [facility] GFR Non- >60 >60 mL/min [facility] [email or web address] GFR/1.73 sq M.predicted MDRD (S/P/Bld) [Vol rate/Area] [facility] Comment on above: Average GFR for 30-3 9 years old: 107 mL/min/1.73sq m Chronic Kidney Disease: <60 mL/min/1.73sq m Kidney failure: <15 mL/min/1.73sq m eGFR calculated using average adult body mass. Additional eGFR calculator available at: http://www.Tagora/multiple_crcl_2012.htm Glucose [Mass/Vol] 165 mg/dL High 70 - 99 mg/dL [facility] Interpretation and review of laboratory results Abnormal [facility] [email or web address] Potassium [Moles/Vol] 4.2 mmol/L 3.7 - 5.3 mmol/L [facility] Sodium [Moles/Vol] 135 mmol/L 135 - 144 mmol/L [facility] Urea nitrogen (BldV) [Mass/Vol] 14 mg/dL 6 - 20 mg/dL [facility] Urea nitrogen/Creatinine (Bld) [Mass ratio] 20 [facility] Lipid Panelon 01-20-2022 Cholesterol [Mass/Vol] 224 mg/dL High <200 [facility] Comment on above: Cholesterol Guidelines: <200 Desirable 200-240 Borderline >240 Undesirable Cholesterol in HDL [Mass/Vol] 51 mg/dL >40 [facility] Comment on above: HDL Guidelines: <40 Undesirable 40-59 Borderline >59 Desirable Cholesterol in LDL [Mass/Vol] 114 mg/dL 0 - 130 mg/dL [facility] Comment on above: LDL Guidelines: <100 Desirable 100-129 Near to/above Desirable 130-159 Borderline >159 Undesirable Direct (measured) LDL and calculated LDL are not interchangeable tests. Cholesterol.total/Ch olesterol in HDL [Mass ratio] 4.4 {ratio} <5 [facility] Interpretation and review of laboratory results Abnormal [facility] Triglyceride [Mass/Vol] 294 mg/dL High <150 [facility] Comment on above: Triglyceride Guidelines: <150 Desirable 150-199 Borderline 200-499 High >499 Very high Based on AHA Guidelines for fasting triglyceride, May 2012. [facility] Microalbumin, Uron 2 Albumin/Creatinine DL <= 20 mg/L (24H U) [Mass ratio] <12 <21 mg/L [facility] Albumin/Creatinine DL <= 20 mg/L (U) [Ratio] Can not be calculated <25 mcg/mg creat [facility] Creatinine [Mass/Vol] 129.3 mg/dL 28.0 - 217.0 mg/dL [facility] Patient Fasting?on 2 Patient Fasting? YES [facility] CBC with Auto Differentialon 01-01-2022 Absolute Eos # 0.30 [facility] th Absolute Lymph # 3.20 [facility] Absolute Jewell # 0.70 [facility] Basophils (Bld) [#/Vol] 0.00 10*3/uL [facility] Basophils/100 WBC (Bld) 0 % 0 - 2 % [facility] [employer] Differential Type YES [facility] Eosinophils/100 WBC (Bld) 3 % 0 - 5 % [facility] Hematocrit (Bld) [Volume fraction] 43.7 % 36 - 46 % [facility] Hemoglobin.gastroint estinal spec 1 Ql (Stl) 14.7 g/dL 12.0 - 16.0 g/dL [facility] Interpretation and review of laboratory results Abnormal [facility] Lymphocytes/100 WBC (Bld) 25 % 15 - 40 % [facility] MCH (RBC) [Entitic mass] 28.0 pg 26 - 34 pg [facility] MCHC (RBC) [Mass/Vol] 33.6 g/dL 31 - 37 g/dL [facility] MCV (RBC) [Entitic vol] 83.2 fL 80 - 100 fL [facility] Monocytes/100 WBC (Bld) 6 % 4 - 8 % [facility] [employer] Platelet distribution width (Bld) [Ratio] 13.8 % 12.1 - 15.2 % [facility] [employer] Platelets (Bld) [#/Vol] 316 10*3/uL [facility] [employer] RBC (Bld) [#/Vol] 5.25 10*6/uL High 4.0 - 5.2 m/uL [facility] Segmented neutrophils/100 WBC (Bld) 66 % 47 - 75 % [facility] Segs Absolute 8.30 [facility] h WBC (Bld) [#/Vol] 12.6 10*3/uL [facility] CT ABDOMEN PELVIS W IV CONTR AST Additional Contrast? Noneon 01-01-2022 Hysterectomy. Normal appendix. [facility]: CT ABDOMEN PELVIS W [...] spleen, pancreas, gallbladder. Liver normal. No hernia. [facility] CONSOLIDATED Osman Harrington Jr., MD [...] normal. No hernia. IMPRESSION: Hysterectomy. Normal appendix. [employer] Phone: Radiology Study observation (narrative) [employer] Phone: CT ABDOMEN PELVIS W IV CONTR AST Additional Contrast? NoneOrdered By: Osman Harrington on 01-01-2022 [employer] Phone: Comprehensive Metabolic Pane l w/ Reflex to MGon 01-01-2022 Albumin [Mass/Vol] 4.5 g/dL 3.5 - 5.2 g/dL [facility] ALP (Bld) [Catalytic activity/Vol] 93 U/L 35 - 104 U/L [facility] ALT [Catalytic activity/Vol] 25 U/L 5 - 33 U/L [facility] Anion gap [Moles/Vol] 15 mmol/L 9 - 17 mmol/L [facility] AST [Catalytic activity/Vol] 18 U/L <32 [facility] Bilirubin [Mass/Vol] 0.29 mg/dL Low 0.30 - 1.20 mg/dL [facility] Calcium [Mass/Vol] 9.6 mg/dL 8.6 - 10. 4 mg/dL [facility] Chloride [Moles/Vol] 98 mmol/L 98 - 10 7 mmol/L [facility] CO2 [Moles/Vol] 24 mmol/L 20 - 31 mmol/L [facility] Creatinine [Mass/Vol] 0.88 mg/dL 0.50 - 0.90 mg/dL [facility] Free PSA/Total PSA [Mass fraction] 7.6 g/dL 6.4 - 8.3 g/dL [facility] GFR >60 >60 mL/min [facility] GFR Non- >60 >60 mL/min [facility] GFR/1.73 sq M.predicted MDRD (S/P/Bld) [Vol rate/Area] [facility] Comment on above: Average GFR for 30-3 9 years old: 107 mL/min/1.73sq m Chronic Kidney Disease: <60 mL/min/1.73sq m Kidney failure: <15 mL/min/1.73sq m eGFR calculated using average adult body mass. Additional eGFR calculator available at: http://www.[employer]/multiple_crcl_2012.htm Glucose [Mass/Vol] 157 mg/dL High 70 - 99 mg/dL [facility] Interpretation and review of laboratory results Abnormal [facility] Potassium [Moles/Vol] 4.1 mmol/L 3.7 - 5.3 mmol/L [facility] Sodium [Moles/Vol] 137 mmol/L 135 - 144 mmol/L [facility] Urea nitrogen (BldV) [Mass/Vol] 11 mg/dL 6 - 20 mg/dL [facility] Urea nitrogen/Creatinine (Bld) [Mass ratio] 13 [facility] Urinalysison 01-01-2022 Bilirubin Urine Negative NEGATIVE [facility] Color, UA Yellow Yellow [facility] Glucose, Ur 1000 mg/dL Abnormal NEGATIVE [facility] Interpretation and review of laboratory results Abnormal [facility] Ketones Ql (U) Negative NEGATIVE [facility] Leukocyte esterase Test strip Ql (U) Negative NEGATIVE [facility] Nitrite, Urine Negative NEGATIVE [facility] pH, UA 6.0 [facility] Protein, UA Negative NEGATIVE [facility] Specific [place], UA 1.020 [facility] Turbidity UA Clear Clear [facility] Urinalysis Comments [facility] Urine Hgb Negative NEGATIVE [facility] Urobilinogen, Urine Normal Normal [facility] Comprehensive Metabolic Pane nadia 07-24-2021 Albumin [Mass/Vol] 3.9 g/dL 3.5 - 5.2 g/dL [facility] Albumin/Globulin Ratio NOT REPORTED [facility] ALP (Bld) [Catalytic activity/Vol] 91 U/L 35 - 104 U/L [facility] ALT [Catalytic activity/Vol] 23 U/L 5 - 33 U/L [facility] Anion gap [Moles/Vol] 13 mmol/L 9 - 17 mmol/L [facility] AST [Catalytic activity/Vol] 16 U/L <32 [facility] Bilirubin [Mass/Vol] 0.23 mg/dL Low 0.30 - 1.20 mg/dL [facility] Calcium [Mass/Vol] 9.0 mg/dL 8.6 - 10. 4 mg/dL [facility] Chloride [Moles/Vol] 103 mmol/L 98 - 10 7 mmol/L [facility] CO2 [Moles/Vol] 22 mmol/L 20 - 31 mmol/L [facility] Creatinine [Mass/Vol] 0.65 mg/dL 0.50 - 0.90 mg/dL [facility] Free PSA/Total PSA [Mass fraction] 6.7 g/dL 6.4 - 8.3 g/dL [facility] GFR >60 >60 mL/min [facility] GFR Non- >60 >60 mL/min [facility] GFR/1.73 sq M.predicted MDRD (S/P/Bld) [Vol rate/Area] [facility] Comment on above: Average GFR for 30-3 9 years old: 107 mL/min/1.73sq m Chronic Kidney Disease: <60 mL/min/1.73sq m Kidney failure: <15 mL/min/1.73sq m eGFR calculated using average adult body mass. Additional eGFR calculator available at: http://www.Tagora/multiple_crcl_2012.htm GFR/1.73 sq M.predicted MDRD (S/P/Bld) [Vol rate/Area] NOT REPORTED [facility] Glucose [Mass/Vol] 147 mg/dL High 70 - 99 mg/dL [facility] [employer] Interpretation and review of laboratory results Abnormal [facility] Potassium [Moles/Vol] 3.9 mmol/L 3.7 - 5.3 mmol/L [facility] Sodium [Moles/Vol] 138 mmol/L 135 - 144 mmol/L [facility] Urea nitrogen (BldV) [Mass/Vol] 10 mg/dL 6 - 20 mg/dL [facility] Urea nitrogen/Creatinine (Bld) [Mass ratio] 15 [facility] Lipid Panelon 07-24-2021 Cholesterol [Mass/Vol] 189 mg/dL <200 [facility] Comment on above: Cholesterol Guidelines: <200 Desirable 200-240 Borderline >240 Undesirable Cholesterol in HDL [Mass/Vol] 54 mg/dL >40 [facility] Comment on above: HDL Guidelines: <40 Undesirable 40-59 Borderline >59 Desirable Cholesterol in LDL [Mass/Vol] 102 mg/dL 0 - 130 mg/dL [facility] Comment on above: LDL Guidelines: <100 Desirable 100-129 Near to/above Desirable 130-159 Borderline >159 Undesirable Direct (measured) LDL and calculated LDL are not interchangeable tests. Cholesterol in VLDL [Mass/Vol] NOT REPORTED High 1 - 30 mg/dL [facility] Cholesterol.total/Ch olesterol in HDL [Mass ratio] 3.5 {ratio} <5 [facility] Interpretation and review of laboratory results Abnormal [facility] Triglyceride [Mass/Vol] 164 mg/dL High <150 [facility] Comment on above: Triglyceride Guidelines: <150 Desirable 150-199 Borderline 200-499 High >499 Very high Based on AHA Guidelines for fasting triglyceride, May 2012. [facility] Patient Fasting?on 1 Patient Fasting? yes [facility] TSH with Reflexon 07-24-2021 TSH Qn 3.66 m[IU]/L [facility] VL DUP LOWER EXTREMITY VENOU S LEFTOrdered By: Keo Amaya on 05-08-2021 Radiology exam is complete. No Radiologist dictation. Please follow up with ordering provider. [facility] Work Phone: [facility] Work Phone: Absolute lymphocyte counton 04-27-2021 Lymphocytes Auto (Unsp spec) [#/Vol] 1.24 10*3/uL 0.90-4.00 [facility] Work Phone: Basophil percentageon 2020 Basophils/100 WBC (Unsp spec) 0.0 % [facility] Work Phone: Blood hemoglobin measurement (mass/volume)on 04-27-2021 Hemoglobin (Bld) [Mass/Vol] 13.0 g/dL 12.0-16.0 [facility] Work Phone: Body fluid alanine aminotran sferase measurement (enzymatic activity/volume)on 04-27-2021 ALT (Body fld) [Catalytic activity/Vol] 46 U/L 14-65 [facility] Work Phone: CBC With Auto Diff.on 2020 Basophils (Bld) [#/Vol] 0.00 10*3/uL Normal 0.00-0.30 [facility] Comment on above: Order Comment: Criti elan Result called to and read back by MERON BEE RN of er on 04/23/2021 1:04 PM by Maru El. Performed By: #### I [id number] #### [facility] (DEFAULT) [address] [place], [place] [address] Basophils/100 WBC (Bld) 0.0 % Normal [facility] Comment on above: Order Comment: Criti elan Result called to and read back by MERON BEE RN of er on 04/23/2021 1:04 PM by Maru El. Performed By: #### I [id number] #### [facility] (DEFAULT) [address] [place], [place] [address] Eosinophils (Bld) [#/Vol] 0.00 10*3/uL Normal 0.00-0.50 [facility] Comment on above: Order Comment: Criti elan Result called to and read back by MERON BEE RN of er on 04/23/2021 1:04 PM by Maru El. Performed By: #### I [id number] #### [facility] (DEFAULT) [address] [place] [address] Eosinophils/100 WBC (Bld) 0.0 % Normal [facility] Comment on above: Order Comment: Criti elan Result called to and read back by MERON BEE RN of er on 04/23/2021 1:04 PM by Maru El. Performed By: #### I [id number] #### [facility] (DEFAULT) [address] [place] [id number] Erythrocyte distribution width (RBC) [Ratio] 12.9 % Normal 11.6-14.8 [facility] Comment on above: Order Comment: Criti elan Result called to and read back by MERON BEE RN of er on 04/23/2021 1:04 PM by Maru El. Performed By: #### I [id number] #### [facility] (DEFAULT) [address] [place] [address] Hematocrit (Bld) [Volume fraction] 37.9 % Normal 36.0-46.0 [facility] Comment on above: Order Comment: Criti elan Result called to and read back by MERON BEE RN of er on 04/23/2021 1:04 PM by Maru El. Performed By: #### I [id number] #### [facility] (DEFAULT) [address] [place] [address] Hemoglobin (Bld) [Mass/Vol] 13.0 g/dL Normal 12.0-16.0 [facility] Comment on above: Order Comment: Criti elan Result called to and read back by MERON BEE RN of er on 04/23/2021 1:04 PM by Maru El. Performed By: #### I [id number] #### [facility] (DEFAULT) [address] [place], [place] [address] Ig% 0.5 % Normal 0.0-4.0 [facility] [facility] Comment on above: Order Comment: Criti elan Result called to and read back by MERON BEE RN of er on 04/23/2021 1:04 PM by Maru El. Performed By: #### I [id number] #### [facility] (DEFAULT) [address] [place] [address] 18311 Lymphocytes (Bld) [#/Vol] 1.24 10*3/uL Normal 0.90-4.00 [facility] Comment on above: Order Comment: Criti elan Result called to and read back by MERON BEE RN of er on 04/23/2021 1:04 PM by Maru El. Performed By: #### I [id number] #### [facility] (DEFAULT) [address] [place] [address] 16159 Lymphocytes/100 WBC (Bld) 21.5 % Normal [facility] Comment on above: Order Comment: Criti elan Result called to and read back by MERON BEE RN of er on 04/23/2021 1:04 PM by Maru El. Performed By: #### I [id number] #### [facility] (DEFAULT) [address] [place] [address] 32007 MCH (RBC) [Entitic mass] 28.7 pg Normal 26.0-34.0 [facility] Comment on above: Order Comment: Criti elan Result called to and read back by MERON BEE RN of er on 04/23/2021 1:04 PM by Maru El. Performed By: #### I [id number] #### [facility] (DEFAULT) [address] [place] [address] 04146 MCHC (RBC) [Mass/Vol] 34.3 g/dL Normal 31.0-37.0 [facility] Comment on above: Order Comment: Criti elan Result called to and read back by MERON BEE RN of er on 04/23/2021 1:04 PM by Maru El. Performed By: #### I [id number] #### [facility] (DEFAULT) [address] [place] [address] 17037 MCV (RBC) [Entitic vol] 84 fL Normal 80-100 [facility] Comment on above: Order Comment: Criti elan Result called to and read back by MERON BEE RN of er on 04/23/2021 1:04 PM by Maru El. Performed By: #### I [id number] #### [facility] (DEFAULT) [address] [place] [address] 15888 Monocytes (Bld) [#/Vol] 0.70 10*3/uL Normal 0.30-0.90 [facility] Comment on above: Order Comment: Criti elan Result called to and read back by MERON BEE RN of er on 04/23/2021 1:04 PM by Maru El. Performed By: #### I [id number] #### [facility] (DEFAULT) [address] [place] [address] 36166 Monocytes/100 WBC (Bld) 12.2 % Normal [facility] Comment on above: Order Comment: Criti elan Result called to and read back by MERON BEE RN of er on 04/23/2021 1:04 PM by Maru El. Performed By: #### I [id number] #### [facility] (DEFAULT) [address] [place] [address] 91062 Neutrophils (Bld) [#/Vol] 3.79 10*3/uL Normal 1.70-7.00 [facility] Comment on above: Order Comment: Criti elan Result called to and read back by MERON BEE RN of er on 04/23/2021 1:04 PM by Maru El. Performed By: #### I [id number] #### [facility] (DEFAULT) [address] [place] [address] 24371 Neutrophils/100 WBC (Bld) 65.8 % Normal [facility] Comment on above: Order Comment: Criti elan Result called to and read back by MERON BEE RN of er on 04/23/2021 1:04 PM by Maru El. Performed By: #### I [id number] #### [facility] (DEFAULT) [address] [place] [address] 58163 Platelet mean volume (Bld) [Entitic vol] 9.1 fL Normal 9.0-15.5 [facility] Comment on above: Order Comment: Criti elan Result called to and read back by MERON BEE RN of er on 04/23/2021 1:04 PM by Maru El. Performed By: #### I [id number] #### [facility] (DEFAULT) [address] [place] [address] 73903 Platelets (Bld) [#/Vol] 337 10*3/uL Normal 150-400 [facility] Comment on above: Order Comment: Criti elan Result called to and read back by MERON BEE RN of er on 04/23/2021 1:04 PM by Maru El. Performed By: #### I [id number] #### [facility] (DEFAULT) [address] [place] [address] 00370 RBC (Bld) [#/Vol] 4.53 10*6/uL Normal 4.00-5.20 [facility] Comment on above: Order Comment: Criti elan Result called to and read back by MERON BEE RN of er on 04/23/2021 1:04 PM by Maru El. Performed By: #### I [id number] #### [facility] (DEFAULT) [address] [place] [address] 78737 WBC (Bld) [#/Vol] 5.76 10*3/uL Normal 4.50-11.00 [facility] Comment on above: Order Comment: Criti elan Result called to and read back by MERON BEE RN of er on 04/23/2021 1:04 PM by Maru El. Performed By: #### I [id number] #### [facility] (DEFAULT) [address] [place] [address] 43104 Calcium measurement (mass/vo lume)on 04-27-2021 Calcium (Unsp spec) [Mass/Vol] 8.4 mg/dL 8.0-10.2 [facility] Work Phone: Comprehensive Metabolic Pane nadia 04-27-2021 Albumin [Mass/Vol] 2.8 g/dL Low 3.2-4.5 [facility] Comment on above: Performed By: #### C OAGS #### [facility] (DEFAULT) [address], [place] [address] ALP [Catalytic activity/Vol] 81 U/L Normal 40-140 [facility] Comment on above: Performed By: #### C OAGS #### [facility] (DEFAULT) [address] [place] [address] 66687 ALT [Catalytic activity/Vol] 46 U/L Normal 14-65 [facility] Comment on above: Performed By: #### C OAGS #### [facility] (DEFAULT) [address] [place] [address] 88174 Anion gap [Moles/Vol] 19 mmol/L Normal 10-20 [facility] Comment on above: Performed By: #### C OAGS #### [facility] (DEFAULT) [address] [place] [address] 16326 AST [Catalytic activity/Vol] 12 U/L Normal 0-45 [facility] Comment on above: Performed By: #### C OAGS #### [facility] (DEFAULT) [address] [place] [address] 90106 Bilirubin [Mass/Vol] 0.4 mg/dL Normal 0.0-1.3 [facility] Comment on above: Performed By: #### C OAGS #### [facility] (DEFAULT) [address] [place] [address] 98467 Calcium [Mass/Vol] 8.4 mg/dL Normal 8.0-10.2 [facility] Comment on above: Performed By: #### C OAGS #### [facility] (DEFAULT) [address] [place] [address] 12273 Chloride [Moles/Vol] 104 mmol/L Normal 98-108 [facility] Comment on above: Performed By: #### C OAGS #### [facility] (DEFAULT) [address] [place], [place] [address] CO2 [Moles/Vol] 18.0 mmol/L Low 21.0-32.0 [facility] Comment on above: Performed By: #### C OAGS #### [facility] (DEFAULT) [address] [place] [address] 39063 Creatinine [Mass/Vol] 0.6 mg/dL Normal 0.4-1.1 [facility] Comment on above: Performed By: #### C OAGS #### [facility] (DEFAULT) [address] [place] [address] 76258 GFR/1.73 sq M.predicted MDRD (S/P/Bld) [Vol rate/Area] 109 mL/min/{1.73_m2} Normal 60-1000 [facility] Comment on above: Result Comment: The eGFR should be used for monitoring renal function only and not for medication dosing. Performed By: #### C OAGS #### [facility] (DEFAULT) [address] [place] [address] 54832 Glucose [Mass/Vol] 164 mg/dL High 65-99 [facility] Comment on above: Performed By: #### C OAGS #### [facility] (DEFAULT) [address] [place] [address] 19204 Potassium [Moles/Vol] 3.8 mmol/L Normal 3.5-5.1 [facility] Comment on above: Performed By: #### C OAGS #### [facility] (DEFAULT) [address] [place] [address] 47589 Protein [Mass/Vol] 6.9 g/dL Normal 6.0-8.0 [facility] Comment on above: Performed By: #### C OAGS #### [facility] (DEFAULT) [address] [place] [address] 54714 Sodium [Moles/Vol] 137 mmol/L Normal 135-145 [facility] Comment on above: Performed By: #### C OAGS #### [facility] (DEFAULT) [address] [place], [place] [address] Urea nitrogen [Mass/Vol] 19 mg/dL Normal 8-25 [facility] Comment on above: Performed By: #### C OAGS #### [facility] (DEFAULT) [address] [place], [place] [address] Erythrocyte distribution wid th ratioon 04-27-2021 Erythrocyte distribution width (RBC) [Ratio] 12.9 % 11.6-14.8 [facility] Work Phone: Erythrocyte mean corpuscular hemoglobin concentration measurement (mass/volume)on 04-27-2021 MCHC (RBC) [Mass/Vol] 34.3 g/dL 31.0-37.0 [facility] Work Phone: HBV + HCV screenon MCH (RBC) [Entitic mass] 28.7 pg 26.0-34.0 [facility] Work Phone: MCV (RBC) [Entitic vol] 84 fL 80-100 [facility] Work Phone: Laboratory - Chemistry and C hemistry - challengeon 04-27-2021 ALP [Catalytic activity/Vol] 81 U/L 40-140 [facility] Work Phone: Anion gap [Moles/Vol] 19 mmol/L 10-20 [facility] Work Phone: CO2 [Moles/Vol] 18.0 mmol/L 21.0-32.0 [facility] Work Phone: GFR/1.73 sq M.predicted among non-blacks MDRD (S/P/Bld) [Vol rate/Area] 109 mL/min/{1.73_m2} 60-1000 [facility] Work Phone: Comment on above: Result Units: mL/min /1.46p4Yyx eGFR should be used for monitoring renal function only and not for medication dosing. Laboratory - Hematology and Cell countson 04-27-2021 Basophils (Bld) [#/Vol] 0.00 10*3/uL 0.00-0.30 [facility] Work Phone: Hematocrit (Bld) [Volume fraction] 37.9 % 36.0-46.0 [facility] Work Phone: Immature granulocytes/100 WBC (Bld) 0.5 % 0.0-4.0 [facility] Work Phone: Neutrophils/100 WBC (Bld) 65.8 % [facility] Work Phone: RBC (Bld) [#/Vol] 4.53 10*6/uL 4.00-5.20 [facility] Work Phone: Neutrophils Auto (Bld) [#/Vo l]on 04-27-2021 Neutrophils (Bld) [#/Vol] 3.79 10*3/uL 1.70-7.00 [facility] Work Phone: PCM.DCPLANon 04-27-2021 PCM.AZPLAN [facility] Patient: DELILAH MANCUSO DISCHARGE PLAN/ORDERS Admit Date: 04/23/21 /Age: 09 1980 Attending Physician: Júnior Valadez MD Med Rec #: [id number] - Problem Patient Problems: Current Active Problems [...] notify your physician Authenticated on: 04/27/21 1203 -2042 CC: Normal [facility] Platelet mean volume Auto (B ld) [Entitic vol]on 04-27-2021 Platelet mean volume (Bld) [Entitic vol] 9.1 fL 9.0-15.5 [facility] Work Phone: Platelets Auto (Bld) [#/Vol] on 09-09-2021 Platelets (Bld) [#/Vol] 337 10*3/uL 150-400 [facility] Work Phone: Serum or plasma albumin marce urement (mass/volume)on 04-27-2021 Albumin [Mass/Vol] 2.8 g/dL 3.2-4.5 [facility] Work Phone: Serum or plasma urea nitroge n measurement (mass/volume)on 04-27-2021 Urea nitrogen [Mass/Vol] 19 mg/dL 8-25 [facility] Work Phone: Trichomonas screenon 021 AST [Catalytic activity/Vol] 12 U/L 0-45 [facility] Work Phone: Bilirubin [Mass/Vol] 0.4 mg/dL 0.0-1.3 [facility] Work Phone: Chloride [Moles/Vol] 104 mmol/L 98-108 [facility] Work Phone: Creatinine [Mass/Vol] 0.6 mg/dL 0.4-1.1 [facility] Work Phone: Eosinophils (Bld) [#/Vol] 0.00 10*3/uL 0.00-0.50 [facility] Work Phone: Eosinophils/100 WBC (Bld) 0.0 % [facility] Work Phone: Glucose [Mass/Vol] 164 mg/dL 65-99 [facility] Work Phone: Lymphocytes/100 WBC (Bld) 21.5 % [facility] Work Phone: Monocytes (Bld) [#/Vol] 0.70 10*3/uL 0.30-0.90 [facility] Work Phone: Monocytes/100 WBC (Bld) 12.2 % [facility] Work Phone: Potassium [Moles/Vol] 3.8 mmol/L 3.5-5.1 [facility] Work Phone: Protein [Mass/Vol] 6.9 g/dL 6.0-8.0 [facility] Work Phone: Sodium [Moles/Vol] 137 mmol/L 135-145 [facility] Work Phone: WBC (Bld) [#/Vol] 5.76 10*3/uL 4.50-11.00 [facility] Work Phone: Basophils Manual cnt (Bld) [ #/Vol]on 04-26-2021 Basophils/100 WBC (Bld) 0 % [facility] Work Phone: CBC With Auto Diff.on 2020 Erythrocyte distribution width (RBC) [Ratio] 13.1 % Normal 11.6-14.8 [facility] Comment on above: Order Comment: Regul atory Requirements State: Only Absolute Cell Counts are reported with their reference ranges. Performed By: #### C OAGS #### [facility] (DEFAULT) [address] [place] [address] 81172 Hematocrit (Bld) [Volume fraction] 36.9 % Normal 36.0-46.0 [facility] Comment on above: Order Comment: Regul atory Requirements State: Only Absolute Cell Counts are reported with their reference ranges. Performed By: #### C OAGS #### [facility] (DEFAULT) [address] [place] [address] 47922 Hemoglobin (Bld) [Mass/Vol] 12.7 g/dL Normal 12.0-16.0 [facility] Comment on above: Order Comment: Regul atory Requirements State: Only Absolute Cell Counts are reported with their reference ranges. Performed By: #### C OAGS #### [facility] (DEFAULT) [address] [place] [address] 26285 Ig% 0.4 % Normal 0.0-4.0 [facility] Comment on above: Order Comment: Regul atory Requirements State: Only Absolute Cell Counts are reported with their reference ranges. Performed By: #### C OAGS #### [facility] (DEFAULT) [address] [place] [address] 67817 MCH (RBC) [Entitic mass] 29.1 pg Normal 26.0-34.0 [facility] Comment on above: Order Comment: Regul atory Requirements State: Only Absolute Cell Counts are reported with their reference ranges. Performed By: #### C OAGS #### [facility] (DEFAULT) [address] [place] [address] 47852 MCHC (RBC) [Mass/Vol] 34.4 g/dL Normal 31.0-37.0 [facility] Comment on above: Order Comment: Regul atory Requirements State: Only Absolute Cell Counts are reported with their reference ranges. Performed By: #### C OAGS #### [facility] (DEFAULT) [address] [place] [address] 62793 MCV (RBC) [Entitic vol] 85 fL Normal 80-100 [facility] Comment on above: Order Comment: Regul atory Requirements State: Only Absolute Cell Counts are reported with their reference ranges. Performed By: #### C OAGS #### [facility] (DEFAULT) [address] [place] [address] 78283 Platelet mean volume (Bld) [Entitic vol] 9.4 fL Normal 9.0-15.5 [facility] Comment on above: Order Comment: Regul atory Requirements State: Only Absolute Cell Counts are reported with their reference ranges. Performed By: #### C OAGS #### [facility] (DEFAULT) [address] [place] [address] 52704 Platelets (Bld) [#/Vol] 313 10*3/uL Normal 150-400 [facility] Comment on above: Order Comment: Regul atory Requirements State: Only Absolute Cell Counts are reported with their reference ranges. Performed By: #### C OAGS #### [facility] (DEFAULT) [address] [place] [address] 66835 RBC (Bld) [#/Vol] 4.36 10*6/uL Normal 4.00-5.20 [facility] Comment on above: Order Comment: Regul atory Requirements State: Only Absolute Cell Counts are reported with their reference ranges. Performed By: #### C OAGS #### [facility] (DEFAULT) [address] [place], [place] [address] WBC (Bld) [#/Vol] 5.29 10*3/uL Normal 4.50-11.00 [facility] Comment on above: Order Comment: Regul atory Requirements State: Only Absolute Cell Counts are reported with their reference ranges. Performed By: #### C OAGS #### [facility] (DEFAULT) [address] [place] [address] 58739 Comprehensive Metabolic Pane nadia 04-26-2021 Albumin [Mass/Vol] 2.8 g/dL Low 3.2-4.5 [facility] Comment on above: Performed By: #### C MP #### [facility] (DEFAULT) [address] [place] [address] 32408 ALP [Catalytic activity/Vol] 88 U/L Normal 40-140 [facility] Comment on above: Performed By: #### C MP #### [facility] (DEFAULT) [address] [place] [address] 11540 ALT [Catalytic activity/Vol] 49 U/L Normal 14-65 [facility] Comment on above: Performed By: #### C MP #### [facility] (DEFAULT) [address] [place] [address] 68314 Anion gap [Moles/Vol] 19 mmol/L Normal 10-20 [facility] Comment on above: Performed By: #### C MP #### [facility] (DEFAULT) [address] [place] [address] 67258 AST [Catalytic activity/Vol] 14 U/L Normal 0-45 [facility] Comment on above: Performed By: #### C MP #### [facility] (DEFAULT) [address] [place] [address] 29064 Bilirubin [Mass/Vol] 0.4 mg/dL Normal 0.0-1.3 [facility] Comment on above: Performed By: #### C MP #### [facility] (DEFAULT) [address] [place] [address] 19796 Calcium [Mass/Vol] 8.6 mg/dL Normal 8.0-10.2 [facility] Comment on above: Performed By: #### C MP #### [facility] (DEFAULT) [address] [place], [place] [address] Chloride [Moles/Vol] 105 mmol/L Normal 98-108 [facility] Comment on above: Performed By: #### C MP #### [facility] (DEFAULT) [address] [place] [address] 96923 CO2 [Moles/Vol] 16.0 mmol/L Low 21.0-32.0 [facility] Comment on above: Performed By: #### C MP #### [facility] (DEFAULT) [address] [place] [address] 70137 Creatinine [Mass/Vol] 0.6 mg/dL Normal 0.4-1.1 [facility] Comment on above: Performed By: #### C MP #### [facility] (DEFAULT) [address] [place] [address] 88632 GFR/1.73 sq M.predicted MDRD (S/P/Bld) [Vol rate/Area] 118 mL/min/{1.73_m2} Normal 60-1000 [facility] Comment on above: Result Comment: The eGFR should be used for monitoring renal function only and not for medication dosing. Performed By: #### C MP #### [facility] (DEFAULT) [address] [place] [address] 48809 Glucose [Mass/Vol] 168 mg/dL High 65-99 [facility] Comment on above: Performed By: #### C MP #### [facility] (DEFAULT) [address] [place], [place] [address] Potassium [Moles/Vol] 3.9 mmol/L Normal 3.5-5.1 [facility] Comment on above: Performed By: #### C MP #### [facility] (DEFAULT) [address] [place], [place] [address] Protein [Mass/Vol] 6.8 g/dL Normal 6.0-8.0 [facility] Comment on above: Performed By: #### C MP #### [facility] (DEFAULT) [address] [place], [place] [address] Sodium [Moles/Vol] 136 mmol/L Normal 135-145 [facility] Comment on above: Performed By: #### C MP #### [facility] (DEFAULT) [address] [place], [place] [address] Urea nitrogen [Mass/Vol] 19 mg/dL Normal 8-25 [facility] Comment on above: Performed By: #### C MP #### [facility] (DEFAULT) [address] [place], [place] [address] Eosinophils Manual cnt (Bld) [#/Vol]on 04-26-2021 Eosinophils/100 WBC (Bld) 0 % [facility] Work Phone: HBV + HCV screenon Monocytes/100 WBC (Bld) 7 % [facility] Work Phone: Lymphocytes Manual cnt (Bld) [#/Vol]on 04-26-2021 Lymphocytes/100 WBC (Bld) 27 % [facility] Work Phone: Manual Differential.on 04-26 Baso 0 % Normal [facility] Comment on above: Order Comment: Two a typical lymphocytes seen in slide. Performed By: #### M DIFF1 #### [facility] (DEFAULT) [address] [place], [place] [address] BASO# 0.00 X10E3/UL Normal 0.00-0.15 [facility] Comment on above: Order Comment: Two a typical lymphocytes seen in slide. Performed By: #### M DIFF1 #### [facility] (DEFAULT) [address] [place], [place] [address] Blasts 0 % Normal 0-0 [facility] Comment on above: Order Comment: Two a typical lymphocytes seen in slide. Performed By: #### M DIFF1 #### [facility] (DEFAULT) [address] [place] [address] 87270 Blasts# 0.00 Normal 0.00-0.00 [facility] Comment on above: Order Comment: Two a typical lymphocytes seen in slide. Performed By: #### M DIFF1 #### [facility] (DEFAULT) [address] [place] [address] EOS 0 % Normal [facility] Comment on above: Order Comment: Two a typical lymphocytes seen in slide. Performed By: #### M DIFF1 #### [facility] (DEFAULT) [address] [place] [address] EOS# 0.00 X10E3/UL Normal 0.00-0.70 [facility] Comment on above: Order Comment: Two a typical lymphocytes seen in slide. Performed By: #### M DIFF1 #### [facility] (DEFAULT) [address] [place] [address] LYM# 1.43 X10E3/UL Normal 1.10-4.40 [facility] Comment on above: Order Comment: Two a typical lymphocytes seen in slide. Performed By: #### M DIFF1 #### [facility] (DEFAULT) [address] [place] [address] Lymphocytes 27 % Normal [facility] Comment on above: Order Comment: Two a typical lymphocytes seen in slide. Performed By: #### M DIFF1 #### [facility] (DEFAULT) [address] [place] [address] [place]# 0.00 X10E3/UL Low 1.50-7.50 [facility] Comment on above: Order Comment: Two a typical lymphocytes seen in slide. Performed By: #### M DIFF1 #### [facility] (DEFAULT) [address] [place] [address] Metamyelocytes 0 % Normal 0-0 [facility] Comment on above: Order Comment: Two a typical lymphocytes seen in slide. Performed By: #### M DIFF1 #### [facility] (DEFAULT) [address] [place] [address] MONO# 0.37 X10E3/UL Normal 0.20-0.95 [facility] Comment on above: Order Comment: Two a typical lymphocytes seen in slide. Performed By: #### M DIFF1 #### [facility] (DEFAULT) [address] [place] [address] Monocytes 7 % Normal [facility] Comment on above: Order Comment: Two a typical lymphocytes seen in slide. Performed By: #### M DIFF1 #### [facility] (DEFAULT) [address] [place] [address] 47597 MYELO 0.00 % Normal 0.00-0.00 [facility] Comment on above: Order Comment: Two a typical lymphocytes seen in slide. Performed By: #### M DIFF1 #### [facility] (DEFAULT) [address] [place] [address] 71749 NEUT# 3.49 X10E3/UL Normal 1.50-7.50 [facility] Comment on above: Order Comment: Two a typical lymphocytes seen in slide. Performed By: #### M DIFF1 #### [facility] (DEFAULT) [address] [place] [address] 32993 Neutrophils 66 % Normal [facility] Comment on above: Order Comment: Two a typical lymphocytes seen in slide. Performed By: #### M DIFF1 #### [facility] (DEFAULT) [address] [place] [address] 34101 NRBC 0 /100wbc Normal [facility] Comment on above: Order Comment: Two a typical lymphocytes seen in slide. Performed By: #### M DIFF1 #### [facility] (DEFAULT) [address] [place] [address] 61260 Manual body fluid myelocytes count (number/volume)on 04-26-2021 Myelocytes Manual cnt (Body fld) [#/Vol] 0.00 % 0.00-0.00 [facility] Work Phone: Metamyelocytes/100 WBC Manua l cnt (Bld)on 04-26-2021 Metamyelocytes/100 WBC (Bld) 0 % 0-0 [facility] Work Phone: Neutrophils Auto (Bld) [#/Vo l]on 04-26-2021 Neutrophils/100 WBC (Bld) 66 % [facility] Work Phone: No Panel Informationon 04-26 Nucleated Red Blood Cells 0 /100wbc [facility] Work Phone: Basic Metabolic panelon Anion gap [Moles/Vol] 19 mmol/L Normal 10-20 [facility] Comment on above: Performed By: #### B MP #### [facility] (DEFAULT) [address] [place], [place] [address] Calcium [Mass/Vol] 8.4 mg/dL Normal 8.0-10.2 [facility] Comment on above: Performed By: #### B MP #### [facility] (DEFAULT) [address] [place] [address] Chloride [Moles/Vol] 107 mmol/L Normal 98-108 [facility] Comment on above: Performed By: #### B MP #### [facility] (DEFAULT) [address] [place] [address] 52985 CO2 [Moles/Vol] 14.0 mmol/L Low 21.0-32.0 [facility] Comment on above: Performed By: #### B MP #### [facility] (DEFAULT) [address] [place] [address] 06785 Creatinine [Mass/Vol] 0.7 mg/dL Normal 0.4-1.1 [facility] Comment on above: Performed By: #### B MP #### [facility] (DEFAULT) [address] [place] [address] GFR/1.73 sq M.predicted MDRD (S/P/Bld) [Vol rate/Area] 92 mL/min/{1.73_m2} Normal 60-1000 [facility] Comment on above: Result Comment: The eGFR should be used for monitoring renal function only and not for medication dosing. Performed By: #### B MP #### [facility] (DEFAULT) [address] [place], [place] [address] Glucose [Mass/Vol] 158 mg/dL High 65-99 [facility] Comment on above: Performed By: #### B MP #### [facility] (DEFAULT) [address] [place], [place] [address] Potassium [Moles/Vol] 4.1 mmol/L Normal 3.5-5.1 [facility] Comment on above: Performed By: #### B MP #### [facility] (DEFAULT) [address] [place] [address] 77451 Sodium [Moles/Vol] 136 mmol/L Normal 135-145 [facility] Comment on above: Performed By: #### B MP #### [facility] (DEFAULT) [address] [place] [address] 33596 Urea nitrogen [Mass/Vol] 20 mg/dL Normal 8-25 [facility] Comment on above: Performed By: #### B MP #### [facility] (DEFAULT) [address] [place] [address] 36551 CBC With Auto Diff.on 2020 Erythrocyte distribution width (RBC) [Ratio] 13.8 % Normal 11.6-14.8 [facility] Comment on above: Order Comment: Criti elan Result called to and read back by MERON BEE RN of er on 04/23/2021 1:04 PM by Maru El. Performed By: #### I [id number] #### [facility] (DEFAULT) [address] [place] [address] 23956 Hematocrit (Bld) [Volume fraction] 41.0 % Normal 36.0-46.0 [facility] Comment on above: Order Comment: Criti elan Result called to and read back by MERON BEE RN of er on 04/23/2021 1:04 PM by Maru El. Performed By: #### I [id number] #### [facility] (DEFAULT) [address] [place] [address] 64618 Hemoglobin (Bld) [Mass/Vol] 13.6 g/dL Normal 12.0-16.0 [facility] Comment on above: Order Comment: Criti elan Result called to and read back by MERON BEE RN of er on 04/23/2021 1:04 PM by Maru El. Performed By: #### I [id number] #### [facility] (DEFAULT) [address] [place] [address] 91034 Ig% 0.2 % Normal 0.0-4.0 [facility] Comment on above: Order Comment: Criti elan Result called to and read back by MERON BEE RN of er on 04/23/2021 1:04 PM by Maru El. Performed By: #### I [id number] #### [facility] (DEFAULT) [address] [place] [address] 21231 MCH (RBC) [Entitic mass] 28.7 pg Normal 26.0-34.0 [facility] Comment on above: Order Comment: Criti elan Result called to and read back by MERON BEE RN of er on 04/23/2021 1:04 PM by Maru El. Performed By: #### I [id number] #### [facility] (DEFAULT) [address] [place] [address] 61804 MCHC (RBC) [Mass/Vol] 33.2 g/dL Normal 31.0-37.0 [facility] Comment on above: Order Comment: Criti elan Result called to and read back by MERON BEE RN of er on 04/23/2021 1:04 PM by Maru El. Performed By: #### I [id number] #### [facility] (DEFAULT) [address] [place] [address] 61677 MCV (RBC) [Entitic vol] 87 fL Normal 80-100 [facility] Comment on above: Order Comment: Criti elan Result called to and read back by MERON BEE RN of er on 04/23/2021 1:04 PM by Maru El. Performed By: #### I [id number] #### [facility] (DEFAULT) [address] [place] [address] 20157 Platelet mean volume (Bld) [Entitic vol] 9.9 fL Normal 9.0-15.5 [facility] Comment on above: Order Comment: Criti elan Result called to and read back by MERON BEE RN of er on 04/23/2021 1:04 PM by Maru El. Performed By: #### I [id number] #### [facility] (DEFAULT) [address] [place] [address] 42086 Platelets (Bld) [#/Vol] 255 10*3/uL Normal 150-400 [facility] Comment on above: Order Comment: Criti elan Result called to and read back by MERON BEE RN of er on 04/23/2021 1:04 PM by Maru El. Performed By: #### I [id number] #### [facility] (DEFAULT) [address] [place] [address] 89325 RBC (Bld) [#/Vol] 4.74 10*6/uL Normal 4.00-5.20 [facility] Comment on above: Order Comment: Criti elan Result called to and read back by MERON BEE RN of er on 04/23/2021 1:04 PM by Maru El. Performed By: #### I [id number] #### [facility] (DEFAULT) [address] [place] [address] 30433 WBC (Bld) [#/Vol] 4.80 10*3/uL Normal 4.50-11.00 [facility] Comment on above: Order Comment: Criti elan Result called to and read back by MERON BEE RN of er on 04/23/2021 1:04 PM by Maru El. Performed By: #### I [id number] #### [facility] (DEFAULT) [address] [place] [address] 92468 Manual Differential.on 04-25 Baso 0 % Normal [facility] Comment on above: Order Comment: Three atypical lymphocytes seen in smear. Performed By: #### M DIFF1 #### [facility] (DEFAULT) [address] [place] [address] 83560 BASO# 0.00 X10E3/UL Normal 0.00-0.15 [facility] Comment on above: Order Comment: Three atypical lymphocytes seen in smear. Performed By: #### M DIFF1 #### [facility] (DEFAULT) [address] [place] [address] 09613 Blasts 0 % Normal 0-0 [facility] Comment on above: Order Comment: Three atypical lymphocytes seen in smear. Performed By: #### M DIFF1 #### [facility] (DEFAULT) [address] [place] [address] 95018 Blasts# 0.00 Normal 0.00-0.00 [facility] Comment on above: Order Comment: Three atypical lymphocytes seen in smear. Performed By: #### M DIFF1 #### [facility] (DEFAULT) [address] [place] [address] EOS 0 % Normal [facility] Comment on above: Order Comment: Three atypical lymphocytes seen in smear. Performed By: #### M DIFF1 #### [facility] (DEFAULT) [address] [place] [address] 77498 EOS# 0.00 X10E3/UL Normal 0.00-0.70 [facility] Comment on above: Order Comment: Three atypical lymphocytes seen in smear. Performed By: #### M DIFF1 #### [facility] (DEFAULT) [address] [place] [address] 53226 LYM# 1.01 X10E3/UL Low 1.10-4.40 [facility] Comment on above: Order Comment: Three atypical lymphocytes seen in smear. Performed By: #### M DIFF1 #### [facility] (DEFAULT) [address] [place] [address] 13397 Lymphocytes 21 % Normal [facility] Comment on above: Order Comment: Three atypical lymphocytes seen in smear. Performed By: #### M DIFF1 #### [facility] (DEFAULT) [address] [place] [address] 40488 [place]# 0.00 X10E3/UL Low 1.50-7.50 [facility] Comment on above: Order Comment: Three atypical lymphocytes seen in smear. Performed By: #### M DIFF1 #### [facility] (DEFAULT) [address] [place], [place] [address] Metamyelocytes 0 % Normal 0-0 [facility] Comment on above: Order Comment: Three atypical lymphocytes seen in smear. Performed By: #### M DIFF1 #### [facility] (DEFAULT) [address] [place], [place] [address] MONO# 0.38 X10E3/UL Normal 0.20-0.95 [facility] Comment on above: Order Comment: Three atypical lymphocytes seen in smear. Performed By: #### M DIFF1 #### [facility] (DEFAULT) [address] [place] [address] 79759 Monocytes 8 % Normal [facility] Comment on above: Order Comment: Three atypical lymphocytes seen in smear. Performed By: #### M DIFF1 #### [facility] (DEFAULT) [address] [place] [address] 71905 MYELO 0.00 % Normal 0.00-0.00 [facility] Comment on above: Order Comment: Three atypical lymphocytes seen in smear. Performed By: #### M DIFF1 #### [facility] (DEFAULT) [address] [place] [address] 53858 NEUT# 3.41 X10E3/UL Normal 1.50-7.50 [facility] Comment on above: Order Comment: Three atypical lymphocytes seen in smear. Performed By: #### M DIFF1 #### [facility] (DEFAULT) [address] [place] [address] 51019 Neutrophils 71 % Normal [facility] Comment on above: Order Comment: Three atypical lymphocytes seen in smear. Performed By: #### M DIFF1 #### [facility] (DEFAULT) [address] [place] [address] 70054 NRBC 0 /100wbc Normal [facility] Comment on above: Order Comment: Three atypical lymphocytes seen in smear. Performed By: #### M DIFF1 #### [facility] (DEFAULT) [address] [place] [address] 73551 Basic Metabolic panelon 09-0 Anion gap [Moles/Vol] 20 mmol/L Normal 10-20 [facility] Comment on above: Performed By: #### B MP #### [facility] (DEFAULT) [address] [place] [address] 66484 Calcium [Mass/Vol] 8.4 mg/dL Normal 8.0-10.2 [facility] Comment on above: Performed By: #### B MP #### [facility] (DEFAULT) [address] [place] [address] 12222 Chloride [Moles/Vol] 107 mmol/L Normal 98-108 [facility] Comment on above: Performed By: #### B MP #### [facility] (DEFAULT) [address] [place] [address] 40053 CO2 [Moles/Vol] 15.0 mmol/L Low 21.0-32.0 [facility] Comment on above: Performed By: #### B MP #### [facility] (DEFAULT) [address] [place] [address] 55722 Creatinine [Mass/Vol] 0.6 mg/dL Normal 0.4-1.1 [facility] Comment on above: Performed By: #### B MP #### [facility] (DEFAULT) [address] [place] [address] 73889 GFR/1.73 sq M.predicted MDRD (S/P/Bld) [Vol rate/Area] 113 mL/min/{1.73_m2} Normal 60-1000 [facility] Comment on above: Result Comment: The eGFR should be used for monitoring renal function only and not for medication dosing. Performed By: #### B MP #### [facility] (DEFAULT) [address] [place] [address] 88839 Glucose [Mass/Vol] 122 mg/dL High 65-99 [facility] Comment on above: Performed By: #### B MP #### [facility] (DEFAULT) [address] [place] [address] 68003 Potassium [Moles/Vol] 4.3 mmol/L Normal 3.5-5.1 [facility] Comment on above: Performed By: #### B MP #### [facility] (DEFAULT) [address] [place], [place] [address] Sodium [Moles/Vol] 138 mmol/L Normal 135-145 [facility] Comment on above: Performed By: #### B MP #### [facility] (DEFAULT) [address] [place], [place] [address] Urea nitrogen [Mass/Vol] 17 mg/dL Normal 8-25 [facility] Comment on above: Performed By: #### B MP #### [facility] (DEFAULT) [address], [place] [address] CBC With Auto Diff.on 2020 Erythrocyte distribution width (RBC) [Ratio] 13.7 % Normal 11.6-14.8 [facility] Comment on above: Order Comment: Regul atory Requirements State: Only Absolute Cell Counts are reported with their reference ranges. Performed By: #### C OAGS #### [facility] (DEFAULT) [address] [place] [address] 61997 Hematocrit (Bld) [Volume fraction] 37.9 % Normal 36.0-46.0 [facility] Comment on above: Order Comment: Regul atory Requirements State: Only Absolute Cell Counts are reported with their reference ranges. Performed By: #### C OAGS #### [facility] (DEFAULT) [address] [place] [address] 82098 Hemoglobin (Bld) [Mass/Vol] 12.6 g/dL Normal 12.0-16.0 [facility] Comment on above: Order Comment: Regul atory Requirements State: Only Absolute Cell Counts are reported with their reference ranges. Performed By: #### C OAGS #### [facility] (DEFAULT) [address] [place] [address] 44649 Ig% 0.5 % Normal 0.0-4.0 [facility] Comment on above: Order Comment: Regul atory Requirements State: Only Absolute Cell Counts are reported with their reference ranges. Performed By: #### C OAGS #### [facility] (DEFAULT) [address] [place], [place] [address] MCH (RBC) [Entitic mass] 28.8 pg Normal 26.0-34.0 [facility] Comment on above: Order Comment: Regul atory Requirements State: Only Absolute Cell Counts are reported with their reference ranges. Performed By: #### C OAGS #### [facility] (DEFAULT) [address] [place] [address] 93754 MCHC (RBC) [Mass/Vol] 33.2 g/dL Normal 31.0-37.0 [facility] Comment on above: Order Comment: Regul atory Requirements State: Only Absolute Cell Counts are reported with their reference ranges. Performed By: #### C OAGS #### [facility] (DEFAULT) [address] [place] [address] 99793 MCV (RBC) [Entitic vol] 87 fL Normal 80-100 [facility] Comment on above: Order Comment: Regul atory Requirements State: Only Absolute Cell Counts are reported with their reference ranges. Performed By: #### C OAGS #### [facility] (DEFAULT) [address] [place] [address] 77430 Platelet mean volume (Bld) [Entitic vol] 9.8 fL Normal 9.0-15.5 [facility] Comment on above: Order Comment: Regul atory Requirements State: Only Absolute Cell Counts are reported with their reference ranges. Performed By: #### C OAGS #### [facility] (DEFAULT) [address] [place] [address] 95499 Platelets (Bld) [#/Vol] 241 10*3/uL Normal 150-400 [facility] Comment on above: Order Comment: Regul atory Requirements State: Only Absolute Cell Counts are reported with their reference ranges. Performed By: #### C OAGS #### [facility] (DEFAULT) [address] [place] [address] 14557 RBC (Bld) [#/Vol] 4.37 10*6/uL Normal 4.00-5.20 [facility] Comment on above: Order Comment: Regul atory Requirements State: Only Absolute Cell Counts are reported with their reference ranges. Performed By: #### C OAGS #### [facility] (DEFAULT) [address] [place], [place] [address] WBC (Bld) [#/Vol] 4.30 10*3/uL Low 4.50-11.00 [facility] Comment on above: Order Comment: Regul atory Requirements State: Only Absolute Cell Counts are reported with their reference ranges. Performed By: #### C OAGS #### [facility] (DEFAULT) [address] [place], [place] [address] D-Dimer Quantitativeon 04-24 D-Dimer Quantitative >5000.0 High 6.0-450.0 [facility] Comment on above: Result Comment: A [...] ng/ml. Performed By: #### C OAGS #### [facility] (DEFAULT) [address] [place], [place] [address] HBV + HCV screenon HBV + HCV screen >5000.0 ng/mL FEU 6.0-450.0 [facility] Work Phone: Comment on above: A [...] Manual Differential.on 04-24 Baso 0 % Normal [facility] Comment on above: Performed By: #### M DIFF1 #### [facility] (DEFAULT) [address] [place] [address] BASO# 0.00 X10E3/UL Normal 0.00-0.15 [facility] Comment on above: Performed By: #### M DIFF1 #### [facility] (DEFAULT) [address] [place] [address] Blasts 0 % Normal 0-0 [facility] Comment on above: Performed By: #### M DIFF1 #### [facility] (DEFAULT) [address] [place] [address] Blasts# 0.00 Normal 0.00-0.00 [facility] Comment on above: Performed By: #### M DIFF1 #### [facility] (DEFAULT) [address] [place] [address] EOS 0 % Normal [facility] Comment on above: Performed By: #### M DIFF1 #### [facility] (DEFAULT) [address] [place] [address] EOS# 0.00 X10E3/UL Normal 0.00-0.70 [facility] Comment on above: Performed By: #### M DIFF1 #### [facility] (DEFAULT) [address] [place] [address] LYM# 0.82 X10E3/UL Low 1.10-4.40 [facility] Comment on above: Performed By: #### M DIFF1 #### [facility] (DEFAULT) [address] [place] [address] Lymphocytes 19 % Normal [facility] Comment on above: Performed By: #### M DIFF1 #### [facility] (DEFAULT) [address] [place] [address] [place]# 0.00 X10E3/UL Low 1.50-7.50 [facility] Comment on above: Performed By: #### M DIFF1 #### [facility] (DEFAULT) [address] [place] [address] Metamyelocytes 0 % Normal 0-0 [facility] Comment on above: Performed By: #### M DIFF1 #### [facility] (DEFAULT) [address] [place], [place] [address] MONO# 0.39 X10E3/UL Normal 0.20-0.95 [facility] Comment on above: Performed By: #### M DIFF1 #### [facility] (DEFAULT) [address] [place], [place] [address] Monocytes 9 % Normal [facility] Comment on above: Performed By: #### M DIFF1 #### [facility] (DEFAULT) [address] [place] [address] MYELO 0.00 % Normal 0.00-0.00 [facility] Comment on above: Performed By: #### M DIFF1 #### [facility] (DEFAULT) [address] [place] [address] NEUT# 3.10 X10E3/UL Normal 1.50-7.50 [facility] Comment on above: Performed By: #### M DIFF1 #### [facility] (DEFAULT) [address] [place] [address] 02325 Neutrophils 72 % Normal [facility] Comment on above: Performed By: #### M DIFF1 #### [facility] (DEFAULT) [address] [place] [address] NRBC 0 /100wbc Normal [facility] Comment on above: Performed By: #### M DIFF1 #### [facility] (DEFAULT) [address] [place] [address] 34566 Blood INR by coagulation ass ishmael 04-23-2021 INR Coag (Bld) [Relative time] 0.89 {INR} 0.90-1.20 [facility] Work Phone: Comment on above: Therapeutic range of an INR is 2.0 - 3.0.Prosthetic Valves: 2.5-3.5An INR >5.0 is considered critical. Blood activated partial thro mboplastin time (aPTT) by coagulation assayon 04-23-2021 aPTT Coag (Bld) [Time] 26.5 s 21.9-33.8 [facility] Work Phone: Blood prothrombin time (PT) by coagulation assayon 04-23-2021 PT Coag (Bld) [Time] 9.7 s 8.7-11.4 [facility] Work Phone: Bloodcultureon 04-23-2021 Bacteria identified Cx Nom (Bld) Wili al Result called to and read back by Rena toledo RN of [facility] on 04/24/2021 7:42 PM by Anum Yip [...] STAPHYLOCOCCUS HOMINIS A Testi g Performed At: [facility] [address] [place] [address] Staphylococcus hominis Sets Positive [1] of [2] GRAM STAIN RESULT BC: Gram Positive Cocci in clusters A Testi g Performed At: [facility] [address] [place] [address] Sets Positive [1] of [2] [facility] Comment on above: Performed By: #### C OAGS #### [facility] (DEFAULT) [address] [place] [address] Bloodculture Second Seton Bloodculture Second Set Blood [...] After 5 Days Testi g Performed At: [facility] [address] [place] [address] Comment on above: Performed By: #### C OAGS #### [facility] (DEFAULT) [address] [place], [place] [address] CBC With Auto Diff.on 2020 Basophils (Bld) [#/Vol] 0.01 10*3/uL Normal 0.00-0.30 [facility] Comment on above: Order Comment: Regul atory Requirements State: Only Absolute Cell Counts are reported with their reference ranges. Performed By: #### C BC #### [facility] (DEFAULT) [address] [place] [address] Basophils/100 WBC (Bld) 0.2 % Normal [facility] Comment on above: Order Comment: Regul atory Requirements State: Only Absolute Cell Counts are reported with their reference ranges. Performed By: #### C BC #### [facility] (DEFAULT) [address] [place] [address] Eosinophils (Bld) [#/Vol] 0.00 10*3/uL Normal 0.00-0.50 [facility] Comment on above: Order Comment: Regul atory Requirements State: Only Absolute Cell Counts are reported with their reference ranges. Performed By: #### C BC #### [facility] (DEFAULT) [address] [place] [address] Eosinophils/100 WBC (Bld) 0.0 % Normal [facility] Comment on above: Order Comment: Regul atory Requirements State: Only Absolute Cell Counts are reported with their reference ranges. Performed By: #### C BC #### [facility] (DEFAULT) [address] [place] [address] Erythrocyte distribution width (RBC) [Ratio] 13.8 % Normal 11.6-14.8 [facility] Comment on above: Order Comment: Regul atory Requirements State: Only Absolute Cell Counts are reported with their reference ranges. Performed By: #### C BC #### [facility] (DEFAULT) [address] [place] [address] Hematocrit (Bld) [Volume fraction] 40.5 % Normal 36.0-46.0 [facility] Comment on above: Order Comment: Regul atory Requirements State: Only Absolute Cell Counts are reported with their reference ranges. Performed By: #### C BC #### [facility] (DEFAULT) [address], [place] [address] Hemoglobin (Bld) [Mass/Vol] 13.3 g/dL Normal 12.0-16.0 [facility] Comment on above: Order Comment: Regul atory Requirements State: Only Absolute Cell Counts are reported with their reference ranges. Performed By: #### C BC #### [facility] (DEFAULT) [address] [place] [address] Ig% 0.3 % Normal 0.0-4.0 [facility] Comment on above: Order Comment: Regul atory Requirements State: Only Absolute Cell Counts are reported with their reference ranges. Performed By: #### C BC #### [facility] (DEFAULT) [address] [place] [address] Lymphocytes (Bld) [#/Vol] 1.20 10*3/uL Normal 0.90-4.00 [facility] Comment on above: Order Comment: Regul atory Requirements State: Only Absolute Cell Counts are reported with their reference ranges. Performed By: #### C BC #### [facility] (DEFAULT) [address] [place] [address] Lymphocytes/100 WBC (Bld) 19.5 % Normal [facility] Comment on above: Order Comment: Regul atory Requirements State: Only Absolute Cell Counts are reported with their reference ranges. Performed By: #### C BC #### [facility] (DEFAULT) [address] [place] [address] MCH (RBC) [Entitic mass] 28.9 pg Normal 26.0-34.0 [facility] Comment on above: Order Comment: Regul atory Requirements State: Only Absolute Cell Counts are reported with their reference ranges. Performed By: #### C BC #### [facility] (DEFAULT) [address] [place] [address] MCHC (RBC) [Mass/Vol] 32.8 g/dL Normal 31.0-37.0 [facility] Comment on above: Order Comment: Regul atory Requirements State: Only Absolute Cell Counts are reported with their reference ranges. Performed By: #### C BC #### [facility] (DEFAULT) [address] [place] [address] MCV (RBC) [Entitic vol] 88 fL Normal 80-100 [facility] Comment on above: Order Comment: Regul atory Requirements State: Only Absolute Cell Counts are reported with their reference ranges. Performed By: #### C BC #### [facility] (DEFAULT) [address] [place] [address] Monocytes (Bld) [#/Vol] 0.28 10*3/uL Low 0.30-0.90 [facility] Comment on above: Order Comment: Regul atory Requirements State: Only Absolute Cell Counts are reported with their reference ranges. Performed By: #### C BC #### [facility] (DEFAULT) [address] [place] [address] Monocytes/100 WBC (Bld) 4.5 % Normal [facility] Comment on above: Order Comment: Regul atory Requirements State: Only Absolute Cell Counts are reported with their reference ranges. Performed By: #### C BC #### [facility] (DEFAULT) [address] [place] [address] Neutrophils (Bld) [#/Vol] 4.65 10*3/uL Normal 1.70-7.00 [facility] Comment on above: Order Comment: Regul atory Requirements State: Only Absolute Cell Counts are reported with their reference ranges. Performed By: #### C BC #### [facility] (DEFAULT) [address] [place] [address] Neutrophils/100 WBC (Bld) 75.5 % Normal [facility] Comment on above: Order Comment: Regul atory Requirements State: Only Absolute Cell Counts are reported with their reference ranges. Performed By: #### C BC #### [facility] (DEFAULT) [address] [place] [address] Platelet mean volume (Bld) [Entitic vol] 9.5 fL Normal 9.0-15.5 [facility] Comment on above: Order Comment: Regul atory Requirements State: Only Absolute Cell Counts are reported with their reference ranges. Performed By: #### C BC #### [facility] (DEFAULT) [address] [place] [address] Platelets (Bld) [#/Vol] 202 10*3/uL Normal 150-400 [facility] Comment on above: Order Comment: Regul atory Requirements State: Only Absolute Cell Counts are reported with their reference ranges. Performed By: #### C BC #### [facility] (DEFAULT) [address] [place] [address] RBC (Bld) [#/Vol] 4.61 10*6/uL Normal 4.00-5.20 [facility] Comment on above: Order Comment: Regul atory Requirements State: Only Absolute Cell Counts are reported with their reference ranges. Performed By: #### C BC #### [facility] (DEFAULT) [address] [place] [address] WBC (Bld) [#/Vol] 6.16 10*3/uL Normal 4.50-11.00 [facility] Comment on above: Order Comment: Regul atory Requirements State: Only Absolute Cell Counts are reported with their reference ranges. Performed By: #### C BC #### [facility] (DEFAULT) [address] [place] [address] CHEST SINGLE VIEWon 04-23-20 CHEST SINGLE VIEW [facility] Patient: DELILAH MANCUSO [address] [facility] [place] [address] Admit Date: 04/23/21 /Age: 09 1980 ED Physician: Ramirez Grimaldo MD DIAGNOSTIC RADIOLOGY REQUISITION Attending Physician: Med Rec #: [id number] EXAM: CHEST SINGLE VIEW HISTORY: SOB, check [...] as other etiologies. Authenticated on: 04/23/21 1234 [id number]/RRIA 1234 Job ID# [id number] CC: Ramirez Grimaldo MD Normal [facility] CTA THORAX W POST PROCESSING on 04-23-2021 CTA THORAX W POST PROCESSING [facility] Patient: DELILAH [address] [place] [address] Admit Date: 04/23/21 /Age: 09 1980 ED Physician: Ramirez Grimaldo MD DIAGNOSTIC RADIOLOGY REQUISITION Attending Physician: Alonso Rec #: [id number] EXAMINATION: CTA THORAX W POST PROCESSING HISTORY: Covid pneumonia and elevated d-dimer. Evaluate for pulmonary embolism. COMPARISON: None. TECHNIQUE: CT angiography of the chest was performed with IV contrast. MIP (maxmum intensity projection) images or 3D post processing was performed. CT dose reduction technique was used, including Automated Exposure Control. AI TECHNOLOGY: This study was processed using LS9 CT Technology. No prior found. Current Lung [...] lungs compatiblewith viral pneumonia. Authenticated on: 04/23/211402 63780/RRIA 02 02 Job ID# [id number] CC: Ramirez Grimaldo MD Normal [facility] Coagulation Panelon 04-23-20 aPTT Coag (Bld) [Time] 26.5 s Normal 21.9-33.8 [facility] Comment on above: Performed By: #### C OAGS #### [facility] (DEFAULT) [address] [place], [place] [address] INR Coag (PPP) [Relative time] 0.89 {INR} Low 0.90-1.20 [facility] Comment on above: Result Comment: Ther apeutic range of an INR is 2.0 - 3.0. Prosthetic Valves: 2.5-3.5 An INR >5.0 is considered critical. Performed By: #### C OAGS #### [facility] (DEFAULT) [address] [place], [place] [address] PT Coag (PPP) [Time] 9.7 s Normal 8.7-11.4 [facility] Comment on above: Performed By: #### C OAGS #### [facility] (DEFAULT) [address] [place] [address] Comprehensive Metabolic Pane nadia 04-23-2021 Albumin [Mass/Vol] 3.0 g/dL Low 3.2-4.5 [facility] Comment on above: Performed By: #### C OAGS #### [facility] (DEFAULT) [address] [place], [place] [address] ALP [Catalytic activity/Vol] 100 U/L Normal 40-140 [facility] Comment on above: Performed By: #### C OAGS #### [facility] (DEFAULT) [address] [place], [place] [address] ALT [Catalytic activity/Vol] 70 U/L High 14-65 [facility] Comment on above: Performed By: #### C OAGS #### [facility] (DEFAULT) [address] [place], [place] [address] Anion gap [Moles/Vol] 15 mmol/L Normal 10-20 [facility] Comment on above: Performed By: #### C OAGS #### [facility] (DEFAULT) [address], [place] [address] AST [Catalytic activity/Vol] 38 U/L Normal 0-45 [facility] Comment on above: Performed By: #### C OAGS #### [facility] (DEFAULT) [address] [place], [place] [address] Bilirubin [Mass/Vol] 0.3 mg/dL Normal 0.0-1.3 [facility] Comment on above: Performed By: #### C OAGS #### [facility] (DEFAULT) [address] [place] [address] Calcium [Mass/Vol] 8.9 mg/dL Normal 8.0-10.2 [facility] Comment on above: Performed By: #### C OAGS #### [facility] (DEFAULT) [address] [place] [address] Chloride [Moles/Vol] 105 mmol/L Normal 98-108 [facility] Comment on above: Performed By: #### C OAGS #### [facility] (DEFAULT) [address] [place] [address] CO2 [Moles/Vol] 20.0 mmol/L Low 21.0-32.0 [facility] Comment on above: Performed By: #### C OAGS #### [facility] (DEFAULT) [address] [place], [place] [address] Creatinine [Mass/Vol] 0.7 mg/dL Normal 0.4-1.1 [facility] Comment on above: Performed By: #### C OAGS #### [facility] (DEFAULT) [address] [place], [place] [address]on [place], [place] [address] GFR/1.73 sq M.predicted MDRD (S/P/Bld) [Vol rate/Area] 96 mL/min/{1.73_m2} Normal 60-1000 [facility] Comment on above: Result Comment: The eGFR should be used for monitoring renal function only and not for medication dosing. Performed By: #### C OAGS #### [facility] (DEFAULT) [address] [place] [address] Glucose [Mass/Vol] 177 mg/dL High 65-99 [facility] Comment on above: Performed By: #### C OAGS #### [facility] (DEFAULT) [address] [place] [address] Potassium [Moles/Vol] 4.2 mmol/L Normal 3.5-5.1 [facility] Comment on above: Performed By: #### C OAGS #### [facility] (DEFAULT) [address] [place] [address] Protein [Mass/Vol] 7.5 g/dL Normal 6.0-8.0 [facility] Comment on above: Performed By: #### C OAGS #### [facility] (DEFAULT) [address] [place] [address] Sodium [Moles/Vol] 136 mmol/L Normal 135-145 [facility] Comment on above: Performed By: #### C OAGS #### [facility] (DEFAULT) [address] [place] [address] Urea nitrogen [Mass/Vol] 11 mg/dL Normal 8-25 [facility] Comment on above: Performed By: #### C OAGS #### [facility] (DEFAULT) [address] [place] [address] D-Dimer Quantitativeon 04-23 D-Dimer Quantitative 1191.0 ng/mL FEU High 6.0-450.0 [facility] Comment on above: Result Comment: A D- [...] ng/ml. Performed By: #### C OAGS #### [facility] (DEFAULT) [address] 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 Patient (more content not included)... Normal [facility] ID NOW SARS-CoV-2 RNA Qualit ativeon 04-23-2021 ID NOW COVID19 Detected Normal Not Detected [facility] Comment on above: Order Comment: [...] at the following links: For Healthcare Providers: https//www.fda.gov/media/411889/download For Patients: https//www.fda.gov/media/476478/download Performed By: #### I DONSIJA88 #### [facility] (DEFAULT) [address] [place], [place] [address] INITIAL HS TROPONIN Ion 09-0 HS Troponin I 9 ng/L Normal 3-59 [facility] Comment on above: Performed By: #### C OAGS #### [facility] (DEFAULT) [address] [place], [place] [address] Lactic Acid, Plasmaon 2020 Lactic Acid, Plasma 1.2 mmol/L Normal 0.6-2.0 [facility] Comment on above: Performed By: #### L A #### [facility] (DEFAULT) [address] [place], [place] [address] No Panel Informationon 04-23 SARS Source Detected Not Detected [facility] Work Phone: Comment on above: This test [...] found at the following links:For Healthcare Providers: https//www.fda.gov/media/237261/downloadFor Patients: https//www.fda.gov/media/836005/download Troponin I High Sensitivity 9 ng/L 3-59 [facility] Work Phone: Serum or plasma lactate marce urement (moles/volume)on 04-23-2021 Lactate [Moles/Vol] 1.2 mmol/L 0.6-2.0 [facility] Work Phone: Hemoglobin A1Con 08-16-2020 Glucose [Mass/Vol] 183 mg/dL [place], [place] Comment on above: The ADA and AACC rec ommend providing the estimated average glucose result to permit better patient understanding of their HBA1c result. HbA1c (Bld) [Mass fraction] 8.0 % High 4 - 6 % [place] Interpretation and review of laboratory results Abnormal [place] Lipid Panelon 08-16-2020 Cholesterol [Mass/Vol] 196 mg/dL <200 [place] Comment on above: Cholesterol Guidelines: <200 Desirable 200-240 Borderline >240 Undesirable Cholesterol in HDL [Mass/Vol] 51 mg/dL >40 [place] Comment on above: HDL Guidelines: <40 Undesirable 40-59 Borderline >59 Desirable Cholesterol in LDL [Mass/Vol] 82 mg/dL 0 - 130 mg/dL [place] Comment on above: LDL Guidelines: <100 Desirable 100-129 Near to/above Desirable 130-159 Borderline >159 Undesirable Direct (measured) LDL and calculated LDL are not interchangeable tests. Cholesterol in VLDL [Mass/Vol] NOT REPORTED High 1 - 30 mg/dL [place] Cholesterol.total/Ch olesterol in HDL [Mass ratio] 3.8 {ratio} <5 [place] Interpretation and review of laboratory results Abnormal [place] Triglyceride [Mass/Vol] 315 mg/dL High <150 [place] Comment on above: Triglyceride Guidelines: <150 Desirable 150-199 Borderline 200-499 High >499 Very high Based on AHA Guidelines for fasting triglyceride, May 2012. Patient Fasting?on 0 Patient Fasting? yes [place], [place] Comprehensive Metabolic Pane nadia 05-02-2020 Albumin [Mass/Vol] 4.2 g/dL 3.5 - 5.2 g/dL [place], [place] Albumin/Globulin [Mass ratio] NOT REPORTED [place] ALP [Catalytic activity/Vol] 82 U/L 35 - 104 U/L [place] ALT [Catalytic activity/Vol] 55 U/L High 5 - 33 U/L [place] Anion gap [Moles/Vol] 12 mmol/L 9 - 17 mmol/L [place] AST [Catalytic activity/Vol] 26 U/L <32 [place] Bilirubin Ql (U) 0.32 mg/dL 0.3 - 1.2 mg/dL [place] Bun/Cre Ratio 15 [place] Calcium [Mass/Vol] 9.3 mg/dL 8.6 - 10. 4 mg/dL [place] Chloride [Moles/Vol] 101 mmol/L 98 - 10 7 mmol/L [place] CO2 [Moles/Vol] 22 mmol/L 20 - 31 mmol/L [place] Creatinine [Mass/Vol] 0.67 mg/dL 0.5 - 0.9 mg/dL [place] GFR >60 >60 mL/min [place], [place] GFR Non- >60 >60 mL/min [place] GFR/1.73 sq M predicted among non-blacks MDRD (S/P/Bld) [Vol rate/Area] [place] Comment on above: Average GFR for 30-3 9 years old: 107 mL/min/1.73sq m Chronic Kidney Disease: <60 mL/min/1.73sq m Kidney failure: <15 mL/min/1.73sq m eGFR calculated using average adult body mass. Additional eGFR calculator available at: http://www.Tagora/multiple_crcl_2012.htm GFR/1.73 sq M predicted among non-blacks MDRD (S/P/Bld) [Vol rate/Area] NOT REPORTED [place] Glucose [Mass/Vol] 190 mg/dL High 70 - 99 mg/dL [place] Interpretation and review of laboratory results Abnormal [place] Potassium [Moles/Vol] 4.1 mmol/L 3.7 - 5.3 mmol/L [place] Protein [Mass/Vol] 8.2 g/dL 6.4 - 8.3 g/dL [place] Sodium [Moles/Vol] 135 mmol/L 135 - 144 mmol/L [place] Urea nitrogen [Mass/Vol] 10 mg/dL 6 - 20 mg/dL [place] Lipid Panelon 05-02-2020 Cholesterol [Mass/Vol] 191 mg/dL <200 [place] Comment on above: Cholesterol Guidelines: <200 Desirable 200-240 Borderline >240 Undesirable Cholesterol in HDL [Mass/Vol] 45 mg/dL >40 [place] Comment on above: HDL Guidelines: <40 Undesirable 40-59 Borderline >59 Desirable Cholesterol in LDL [Mass/Vol] 86 mg/dL 0 - 130 mg/dL [place] Comment on above: LDL Guidelines: <100 Desirable 100-129 Near to/above Desirable 130-159 Borderline >159 Undesirable Direct (measured) LDL and calculated LDL are not interchangeable tests. Cholesterol in VLDL [Mass/Vol] NOT REPORTED High 1 - 30 mg/dL [place] Cholesterol.total/Ch olesterol in HDL [Mass ratio] 4.2 {ratio} <5 [place] Interpretation and review of laboratory results Abnormal [place] Triglyceride [Mass/Vol] 301 mg/dL High <150 [place] Comment on above: Triglyceride Guidelines: <150 Desirable 150-199 Borderline 200-499 High >499 Very high Based on AHA Guidelines for fasting triglyceride, May 2012. Microalbumin / Creatinine Ur ine Ratioon 05-02-2020 Albumin/Creatinine DL <= 20 mg/L (24H U) [Mass ratio] <12 <21 mg/L [place] Albumin/Creatinine DL <= 20 mg/L (U) [Ratio] CANNOT BE CALCULATED <25 mcg/mg creat [place] Creatinine, Ur 205.1 mg/dL 28 - 217 mg/dL [place] Patient Fasting?on 0 Patient Fasting? YES [place] Coding Summary.on 01-25-2020 Coding Summary. CODING DATE: 01/25/2020 FINAL [facility] STATUS: Home (Routine DC) PAYOR: Medical [place] ADMIT DX: REASON FOR VISIT DX: Z01.812 [...] [place] CphT Date Saved: 01/25/2020 02:47 pm [facility] Postoperative Documentson Postoperative Documents [id number]#1 .00CD:127 [facility] IntraOperative Documentson 0 01-19-2020 IntraOperative Documents [id number]#1 .00CD:127 [facility] Coding Summary.on 01-18-2020 Coding Summary. 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 However, the narrative phrase printed from the coding software may appear abbreviated, or result in slightly different terminology. Revised Coded By: Sandra Salguero Revised Date Saved: 01/18/2020 12:27 pm [facility] Consent for Anesthesiaon Consent for Anesthesia [id number]# 1.00CD:127 [facility] Discharge Instructionson Discharge Instructions [id number]# 1.00CD:127 [facility] IntraOperative Documentson 0 01-18-2020 IntraOperative Documents [id number]# 1.00CD:127 [facility] IntraOperative Documents [id number]# 1.00CD:127 Normal [facility] Main [place] Intraoperative Recor don 01-18-2020 Main [place] Intraoperative Record IntraOp Document Type FT Summary Primary Physician: Alli Gaston MD Finalized Date/Time: 01/18/20 09:27:07 Pt. Name: DELILAH MANCUSO /Sex: 1980 Female Med Rec #: [id number] Physician: Alli Gaston MD Financial #: [id number] Pt. Type: A Room/Bed: [facility] Admit/Disch: 01/15/20 05:56:52 - 01/15/20 15:15:00 Institution: Case Times FT Entry 1 Patient Times In Room 01/15/20 07:41:00 Out Room 01/15/20 09:42:00 Procedure Times Start 01/15/20 08:06:00 Stop 01/15/20 09:36:00 Anesthesia Times Start 01/15/20 07:41:00 Stop 01/15/20 09:42:00 Last Modified By: Sheree Park RN 01/15/20 09:45:43 General Comments: 0820: robot docked. [id number]: dr gaston out of room for consultation 0840:surgeon to console 01/18/2020 Chart opened to review and send charges Alayna Humphreys HOGSHEAD ROLLER Case Attendance FT Entry 1 Entry 2 Entry 3 Case Attendee Jabier Puentes Jr., DO, MD, Alli Mittal HOGSHEAD ROLLER/SA, Adelita Role Performed Anesthesiologist of Surgeon - Primary HOGSHEAD ROLLER/SA Record Time In 01/15/20 07:41:00 01/15/20 07:56:00 [...] Vieira RN, JINAOR, Maritza Barth Role Performed Fumigator And Sterilizer - Primary Scrub - Primary Scrub - [...] DO Given Participants GErika MD, Daxa Colindres HOGSHEAD ROLLER/Adelita OWEN Farris RN, Flor Cabrera CST, Isha [...] and tissue Entry 1 Skin Integrity Intact, Otis, Warm, and Skin Abnormality No Dry Outcomes [...] Present Upon Arrival No Inserted LF 16FR [[id number]][F] Insertion Date/Time 01/15/20 08:00:00 Urine Residual 60 Insertion Site Uretheral Urine clear yellow Characteristics Inserted By Sharp HOGSHEAD ROLLER/SA, Adelita Discontinued? No Outcomes Met? Yes Last [...] BLANKET MISTRAL AIR Quantity 1 Aid TORSO [[id number]][F] Fluid/[place] Unit Mistral warming system Setting high/43 degrees Body Site Upper anterior torso Last Modified By: Sheree Park RN 01/15/20 07:25:29 Case Comments Finalized By: Jennifer Humphreys CST Document Signatures Signed By: Sheree Park RN 01/15/20 09:46 Jennifer Humphreys CST 01/18/20 09:27 Normal [facility] Preoperative Documentson Preoperative Documents [id number]# 1.00CD:127 Normal [facility] Operative Reporton 0 Operative Report Date [...] Ruma were then used to follow the NanoCellect[employer] manipulator guideline for creation of the vaginal [...] Alli Gaston MD, FACOG crj Dictated: 01/15/2020 #[id number] Typed: 01/16/2020 #[id number] cc: Alli Gaston MD, TAPAN Normal [facility] Comment on above: Result Comment: Elec tronically Signed By: Erika RODRIGUEZ, Alli Dickens\.br\Date and Time Signed: 01/17/20 07:01 EDT ABO/Rhon 01-15-2020 ABO/Rh Positive [facility] Comment on above: Performed By: #### 2 853242, 10518950, 0875786, 5835438, 03774383, 0932650 #### [facility] [address] [place] [address] ABO/Rh History Checkon 01-14 ABO/Rh History Check Verified Hx Blood Type Normal [facility] Comment on above: Performed By: #### 2 787127, 47725514, 0167674, 7048783, 20526342, 2772931 #### [facility] [address] [place] [address] ABSCon 01-15-2020 ABSC Gel Interp Negative Normal [facility] Comment on above: Performed By: #### 2 489397, 95418028, 2210445, 3223561, 50811501, 0604051 #### [facility] [address] [place] [address] Blood Bank ID#on 01-15-2020 BBID# [id number] [facility] Comment on above: Performed By: #### 2 877160, 31376652, 7958225, 6018254, 72820931, 8187667 #### [facility] [address] [place] [address] Blood Bank Slipon 01-15-2020 Blood Bank Slip [id number]#1 .00CD:127 Normal [facility] History and Physicalon 01-14 History and [...] Alli Gaston MD, FACOG gls Dictated: 01/14/2020 #[id number] Typed 01/15/2020 #[id number] cc: Alli Gaston MD, FACOG Normal [facility] Comment on above: Result Comment: Elec tronically Signed By: Alli Gaston MD\.br\Date and Time Signed: 01/15/20 09:31 EDT Inpatient Patient Summaryon 01-15-2020 Inpatient Patient Summary [place] [id number] [facility] Clinical Discharge Instructions PERSON INFORMATION Name: DELILAH MANCUSO [facility]#:[id number] PHYSICIANS Admitting Physician: Alli Gaston MD Attending Physician: Alli Gaston MD PCP: SHYAM REYNOLDS MD Discharge Diagnosis: Diabetes; Endometriosis; Female pelvic pain; Pelvic relaxation; S/P total hysterectomy; Status post bilateral salpingectomy Comment: PATIENT EDUCATION INFORMATION Instructions: [employer]MER - Post Hysterectomy/[place] my/Major Surgery-Erika (Custom); Post Op Patient Instructions - MARYLU (Custom) Medication Leaflets: Follow up: With: Address: When: Alli [address], [address], [place] [address] Business (1) Within 6 weeks With: Address: When: Alli [address], [address], [place] [address] Business (1) Within 2 weeks Comments: Call for any problems. MEDICATION LIST New Medications [facility] [address], [address], [place] [id number], [phone] acetaminophen-oxycodo ne (Percocet 325 mg-5 mg Tab) [...] tab By Mouth every day. Comment: Normal [facility] Main OR PACU I Recordon 12-18 Main OR PACU I Record PACU Phase I Document Type FT Summary Primary Physician: Alli Gaston MD Finalized Date/Time: 01/15/20 10:57:46 Pt. Name: DELILAH MANCUSO /Sex: 1980 Female Med Rec #: [id number] Physician: Alli Gaston MD Financial #: [id number] Pt. Type: A Room/Bed: Admit/Disch: 01/15/20 05:56:52 [...] Signed By: Joanna Macias RN 01/15/20 10:57 [facility] Main OR PACU II Recordon Main OR PACU II Record PACU Phase II Document Type FT Summary Primary Physician: Alli Gaston MD Finalized Date/Time: 01/15/20 15:31:21 Pt. Name: DELILAH MANCUSO Chrissie /Sex: 1980 Female Med Rec #: [id number] Physician: Alli Gaston MD Financial #: [id number] Pt. Type: A Room/Bed: [facility] Admit/Disch: 01/15/20 05:56:52 - Institution: Case Times [...] By: Irene Silva LPN 01/15/20 15:31 Normal [facility] Main OR Preoperative Recordo n 01-15-2020 Main OR Preoperative Record PreOp Document Type FT Summary Primary Physician: Alli Gaston MD Finalized Date/Time: 01/15/20 08:51:01 Pt. Name: DELILAH MANCUSO Chrissie /Sex: 1980 Female Med Rec #: [id number] Physician: Alli Gaston MD Financial #: [id number] Pt. Type: A Room/Bed: [facility] Admit/Disch: 01/15/20 05:56:52 - Institution: Case [...] By: Sheree Park RN 01/15/20 08:51 Normal [facility] Monitor Recordon 01-15-2020 Monitor Record [id number]# 1.00CD:127 Normal [facility] Monitor Record [id number]# 1.00CD:127 [facility] Patient Education - Texton 0 01-15-2020 Patient [...] cramps. PLEASE CALL FOR ANY PROBLEMS. Mary [facility] Progress Note-Physicianon Progress Note-Physician Patient: DELILAH [...] Cap 161 mg/dL HI POC Device SN [id number] POC Username DUYEN YEH 01/15/2020 6:13 EDT [...] interpretation: SINUS RHYTHM WITH SINUS ARRHYTHMIA. Plan Citizen Of [place] Society of Anesthesiologists (ASA) physical status classification: Class III. Anesthetic Preoperative Plan Anesthesia: General. . Anesthetic plan, risks, benefits, and alternatives discussed with the patient and/or family. Patient verbalized understanding. Adverse reactions, complications, and alternatives discujssed. Consent signed and on chart.. Normal [facility] Comment on above: Result Comment: Elec tronically Signed By: Jabier Puentes Jr., DO\.br\Date and Time Signed: 01/15/20 07:02 EDT U BetaHcg Qualon 01-15-2020 HCG.beta subunit (U) [Moles/Vol] Negative Normal [facility] Comment on above: Performed By: #### 2 [id number] #### [facility] [address] [place] [address] UA With Cult Reflexon 2019 Bacteria LM Ql (Urine sed) TRACE Normal Trace [facility] Comment on above: Performed By: #### 2 898453, 30388034, 8457720, 6882725, 99176662, 3762853 #### [facility] [address] [place] [address] Bilirubin Ql (U) Negative Normal Negative [facility] Comment on above: Performed By: #### 2 768644, 20852074, 5402664, 0781312, 28508188, 1815657 #### [facility] [address] [place] [address] Clarity (U) CLEAR Normal Clear [facility] Comment on above: Performed By: #### 2 312489, 26126242, 7722695, 9649888, 00408101, 1232132 #### [facility] [address] [place] [address] Color (U) YELLOW Normal Yellow [facility] Comment on above: Performed By: #### 2 152591, 23002159, 4180946, 0435635, 96714454, 1616649 #### [facility] [address] [place] [address] Crystals LM Ql (Urine sed) Present Normal [facility] Comment on above: Performed By: #### 2 572814, 18622464, 1026033, 5040626, 86888310, 3952312 #### [facility] [address] [place] [address] Epithelial cells.squamous LM.HPF (Urine sed) [#/Area] 0-2 Normal 0-2 [facility] Comment on above: Performed By: #### 2 260090, 06446734, 4023280, 1471378, 57782507, 3805071 #### [facility] [address] [place] [address] Glucose Test strip (U) [Mass/Vol] Negative Normal Negative [facility] Comment on above: Performed By: #### 2 043854, 03376541, 9360033, 4101440, 21419071, 7802449 #### [facility] [address] [place] [address] Hemoglobin Ql (U) Negative Normal Negative [facility] Comment on above: Performed By: #### 2 648044, 52849771, 8991338, 1901030, 59144993, 9836484 #### [facility] [address] [place] [address] Ketones (U) [Mass/Vol] Negative Normal Negative [facility] Comment on above: Performed By: #### 2 530861, 45035075, 6213256, 6610178, 85761594, 9943953 #### [facility] [address] [place] [address] Floweree.plasma/Lithi um.RBC (Bld) [Mass ratio] 0-3 Normal 0-3 [facility] Comment on above: Performed By: #### 2 554267, 98019741, 5570016, 3698712, 25401757, 4845965 #### [facility] [address] [place] [address] Mucus Ql (Urine sed) 1+ Normal [facility] Comment on above: Performed By: #### 2 001829, 06358679, 5745079, 8507241, 00416611, 7229769 #### [facility] [address] [place] [address] Nitrite Ql (U) Negative Normal Negative [facility] Comment on above: Performed By: #### 2 999270, 87803198, 9631672, 5132384, 12542963, 2837513 #### [facility] [address] [place] [address] pH (U) 5.5 [pH] 5.0-9.0 [facility] Comment on above: Performed By: #### 2 762083, 15548888, 1725407, 0242765, 21846726, 7511996 #### [facility] [address] [place] [address] Protein (U) [Mass/Vol] Negative Normal Negative [facility] Comment on above: Performed By: #### 2 532257, 23484888, 5749925, 3968036, 05168752, 4350742 #### [facility] [address] [place] [address] Specific gravity (U) [Rel density] 1.025 1.005-1.030 [facility] Comment on above: Performed By: #### 2 657114, 12712181, 6750484, 2439931, 69102001, 4797709 #### [facility] [address] [place] [address] UA Spec Desc Lowry Normal [facility] Comment on above: Performed By: #### 2 873842, 42597214, 4308101, 6036542, 37401434, 0333895 #### [facility] [address] [place] [address] Urobilinogen Qn (U) 0.2 {Erasmo'U}/dL Normal 0.0-1.0 [facility] Comment on above: Performed By: #### 2 118754, 30403696, 7101362, 0697793, 65663147, 9231174 #### [facility] [address] [place] [address] WBC Auto Ql (U) Negative Normal Negative [facility] Comment on above: Performed By: #### 2 643985, 52086893, 9455073, 9998175, 39517275, 7707559 #### [facility] [address] [place] [address] WBC LM.HPF (Urine sed) [#/Area] 0-5 Normal 0-5 [facility] Comment on above: Performed By: #### 2 526608, 41682413, 8665505, 8788186, 87216226, 4665001 #### [facility] [address] [place] [address] Coding Summary.on 01-05-2020 Coding Summary. CODING DATE: 01/05/2020 FINAL [facility] DSC STATUS: Home (Routine DC) PAYOR: [facility] [place] [facility] DESCRIPTION 5733 Level 3 Minor Procedures [...] CphT Date Saved: 01/05/2020 02:42 pm Normal [facility] ABO/Rh Retypeon 01-04-2020 ABO/Rh Retype Interp Positive Fish er [facility] Comment on above: Performed By: #### 1 [id number] #### [facility] [address] [place] [address] B hCG Qualon 01-04-2020 Beta hCG Ql Negative Normal [facility] Comment on above: Performed By: #### 2 0268497 #### [facility] [address] [place] [address] BUNon 01-04-2020 Urea nitrogen [Mass/Vol] 12 mg/dL Normal 5-21 [facility] Comment on above: Performed By: #### 2 460398, 84880225, 8406603, 0766062, 50440965, 6182331 #### [facility] [address] [place] [address] CBC w/Indiceson 01-04-2020 Erythrocyte distribution width (RBC) [Ratio] 13.0 % Normal 10.9-14.2 [facility] Comment on above: Performed By: #### 2 602906, 77707563, 3555344, 1848185, 81523397, 6305868 #### [facility] [address] [place] [address] Hematocrit (Bld) [Volume fraction] 37.1 % Normal 34.0-46.0 [facility] Comment on above: Performed By: #### 2 963132, 76971418, 0444140, 2899465, 52295752, 1881797 #### [facility] [address] [place] [address] Hemoglobin (Bld) [Mass/Vol] 12.4 g/dL Normal 12.0-16.0 [facility] Comment on above: Performed By: #### 2 467057, 96501975, 3837575, 5629585, 91063975, 1872851 #### [facility] [address] [place] [address] MCH (RBC) [Entitic mass] 28.8 pg Normal 27.0-34.0 [facility] Comment on above: Performed By: #### 2 189262, 81212309, 8282777, 6115822, 12878923, 5009697 #### [facility] [address] [place] [address] MCHC (RBC) [Mass/Vol] 33.4 g/dL Normal 31.4-36.0 [facility] Comment on above: Performed By: #### 2 854065, 50228330, 4310910, 9961036, 97022609, 2150783 #### [facility] [address] [place] [address] MCV (RBC) [Entitic vol] 86.2 fL Normal 80.0-100.0 [facility] Comment on above: Performed By: #### 2 876052, 70542808, 2760143, 7586513, 50729859, 2980415 #### [facility] [address] [place] [address] Platelet mean volume (Bld) [Entitic vol] 7.8 fL Normal 6.4-10.8 [facility] Comment on above: Performed By: #### 2 868049, 27573802, 8142885, 9822186, 78915341, 7318861 #### [facility] [address] [place] [address] Platelets (Bld) [#/Vol] 266.0 E9/L Normal 150.0-500.0 [facility] Comment on above: Performed By: #### 2 723675, 20527971, 3522776, 5133862, 09041230, 3175149 #### [facility] [address] [place] [address] RBC (Bld) [#/Vol] 4.3 E12/L Normal 4.3-5.9 [facility] Comment on above: Performed By: #### 2 358258, 05586371, 6244101, 7179981, 71610507, 3548210 #### [facility] [address] [place] [address] WBC corrected for nucl RBC Auto (Bld) [#/Vol] 8.4 E9/L Normal 4.0-11.0 [facility] Comment on above: Performed By: #### 2 735620, 06470982, 6230908, 6375697, 14794138, 7381748 #### [facility] [address] [place] [address] Creatinineon 01-04-2020 Creatinine [Mass/Vol] 0.6 mg/dL Normal 0.5-1.3 [facility] Comment on above: Performed By: #### 2 878360, 64832419, 4894679, 1774984, 89245405, 9957301 #### [facility] [address] [place] [address] Lyteson 01-04-2020 Anion gap [Moles/Vol] 12 mmol/L Normal 6-16 [facility] Comment on above: Performed By: #### 2 559616, 37091588, 1055790, 4402737, 14857624, 6570759 #### [facility] [address] [place] [address] Chloride [Moles/Vol] 104 mmol/L Normal 101-111 [facility] Comment on above: Performed By: #### 2 800860, 29168946, 0783585, 5918829, 21954502, 8481215 #### [facility] [address] [place] [address] CO2 [Moles/Vol] 23 mmol/L Normal 21-31 [facility] Comment on above: Performed By: #### 2 827845, 86120868, 5632504, 1538471, 42144299, 7981772 #### [facility] [address] [place] [address] Potassium [Moles/Vol] 4.0 mmol/L Normal 3.5-5.3 [facility] Comment on above: Performed By: #### 2 938390, 05173409, 0338914, 2198158, 26995333, 0001466 #### [facility] [address] [place] [address] Sodium [Moles/Vol] 135 mmol/L Normal 135-145 [facility] Comment on above: Performed By: #### 2 446876, 33098357, 1531308, 0425082, 26483488, 7442627 #### [facility] [address] [place] [address] PT & PTTon 01-04-2020 aPTT Coag (PPP) [Time] 27.5 second(s) Normal 25.1-36.5 [facility] Comment on above: Result Comment: Hepa rin therapeutic range (represented by Anti-Factor Xa activity of 0.2 - 0.4 U/mL) corresponds to PTT of 56.6 - 109.0 sec. Performed By: #### 2 738671, 91548734, 8449407, 9245494, 52998057, 5822382 #### [facility] [address] [place] [address] INR Coag (PPP) [Relative time] 0.9 {INR} [facility] Comment on above: Result Comment: INR results are specifically intended to assess patients stabilized on long-term Anticoagulation therapy suggested INR?s ?Less Intensive Anticoagulation? 2.0 ? 3.0 Conventional Range 3.0 ? 4.5 Performed By: #### 2 027603, 45977969, 4595356, 4383252, 96772773, 0753696 #### [facility] [address] [place] [address] PT Coag (PPP) [Time] 10.4 second(s) Normal 10.2-12.9 [facility] Comment on above: Performed By: #### 2 108590, 66335282, 6880999, 6841996, 95045928, 9471293 #### [facility] [address] [place] [address] eGFRon 01-04-2020 GFR/1.73 sq M predicted among blacks MDRD (S/P/Bld) [Vol rate/Area] mL/min/{1.73_m2} Normal >=59 [facility] Comment on above: Order Comment: Order added by Discern Expert. Result Comment: eGFR is race adjusted. AA=. Performed By: #### 2 974896, 74716648, 3593764, 5156873, 22697329, 7648829 #### [facility] [address] [place] [address] GFR/1.73 sq M predicted among non-blacks MDRD (S/P/Bld) [Vol rate/Area] mL/min/{1.73_m2} Normal >=59 [facility] Comment on above: Order Comment: Order added by Discern Expert. Result Comment: Microbiology Lab Assistant krissy kidney disease could be indicated at eGFR's of less than 60 mL/min/1.73m2. Kidney failure is indicated at less than 15 mL/min/1.73m2. Performed By: #### 2 576040, 22490489, 2855001, 4661770, 20724199, 4308150 #### [facility] [address] [place] [address] Microalb.,Random Uron 2017 Creatinine 162.3 mg/dL Normal 28.0-217.[address] [facility] Comment on above: Performed By: #### C NOLVIA ####[address] [place] [address] Microalb/Creat Ratio CANNOT BE CALCULATED Normal <[address] [facility] Comment on above: Performed By: #### C LÁZAROMA ####[address] [place] [address] Microalbumin conc. <12 Normal <[address] [facility] Comment on above: Performed By: #### C PURMA ####[address] [place] [address] Vital Signs Date Time Vital Sign Value Performing Clinician Karissa blackwell 04-14-2022 22:24-0400 Respiratory rate 17 /min Raf Wilson MD Work Phone: [facility] 04-14-2022 22:20-0400 Diastolic blood pressure 76 mm[Hg] Raf Wilson MD Work Phone: [facility] 04-14-2022 22:20-0400 Heart rate 88 /min Raf Wilson MD Work Phone: [facility] [place] 04-14-2022 22:20-0400 Systolic blood pressure 131 mm[Hg] Raf Wilson MD Work Phone: [facility] [place] 04-14-2022 22:10-0400 SaO2% (BldA) [Mass fraction] 100 % Raf Wilson MD Work Phone: [facility] [place] 04-14-2022 19:51-0400 Body height 170.2 cm Raf Wilson MD Work Phone: [facility] [place] 04-14-2022 19:51-0400 Body mass index (BMI) [Ratio] 40.27 kg/m2 Raf Wilson MD Work Phone: [facility] [place] 04-14-2022 19:51-0400 Body temperature 100.4 [degF] Raf Wilson MD Work Phone: [facility] [place] 04-14-2022 19:51-0400 Body weight 116.62 kg Raf Wilson MD Work Phone: [facility] [place] 01-01-2022 15:11-0400 Diastolic blood pressure 80 mm[Hg] Desmond Reynolds MD Work Phone: [facility] 01-01-2022 15:11-0400 SaO2% (BldA) [Mass fraction] 100 % Desmond Reynolds MD Work Phone: [facility] 01-01-2022 15:11-0400 Systolic blood pressure 135 mm[Hg] Desmond Reynolds MD Work Phone: [facility] 01-01-2022 14:06-0400 Body mass index (BMI) [Ratio] 39.53 kg/m2 Desmond Reynolds MD Work Phone: [facility] 01-01-2022 14:06-0400 Body temperature 97.7 [degF] Desmond Reynolds MD Work Phone: [facility] 01-01-2022 14:06-0400 Body weight 117.94 kg Desmond Reynolds MD Work Phone: [facility] 01-01-2022 14:06-0400 Heart rate 106 /min Desmond Reynolds MD Work Phone: [facility] 01-01-2022 14:06-0400 Respiratory rate 16 /min Desmond Reynolds MD Work Phone: [facility] 05-08-2021 15:14-0400 Body height 172.7 cm Keo Amaya MD Work Phone: [facility] Work Phone: 05-08-2021 15:14-0400 Body mass index (BMI) [Ratio] 38.77 kg/m2 Keo Amaya MD Work Phone: [facility] Work Phone: 05-08-2021 15:14-0400 Body temperature 99.19 [degF] Keo Amaya MD Work Phone: [facility] Work Phone: 05-08-2021 15:14-0400 Body weight 115.67 kg Keo Amaya MD Work Phone: [facility] Work Phone: 05-08-2021 15:14-0400 Diastolic blood pressure 86 mm[Hg] Keo Amaya MD Work Phone: [facility] Work Phone: 05-08-2021 15:14-0400 Heart rate 92 /min Keo Amaya MD Work Phone: [facility] Work Phone: 05-08-2021 15:14-0400 Respiratory rate 20 /min Keo Amaya MD Work Phone: [facility] Work Phone: 05-08-2021 15:14-0400 SaO2% (BldA) [Mass fraction] 97 % Keo Amaya MD Work Phone: [facility] Work Phone: 05-08-2021 15:14-0400 Systolic blood pressure 150 mm[Hg] Keo Amaya MD Work Phone: [facility] Work Phone: 04-27-2021 11:26-0400 Diastolic blood pressure 89 mm[Hg] MD RAMIREZ GRIMALDO Work Phone: [facility] Work Phone: 04-27-2021 11:26-0400 Heart rate 92 /min MD RAMIREZ GRIMALDO Work Phone: [facility] Work Phone: 04-27-2021 11:26-0400 SaO2% (BldA) [Mass fraction] 95 % MD RAMIREZ GRIMALDO Work Phone: [facility] Work Phone: 04-27-2021 11:26-0400 Systolic blood pressure 129 mm[Hg] MD RAMIREZ GRIMALDO Work Phone: [facility] Work Phone: 04-27-2021 10:39-0400 Body temperature 98.1 [degF] MD RAMIREZ GRIMALDO Work Phone: [facility] Work Phone: 04-27-2021 10:39-0400 Respiratory rate 20 /min MD RAMIREZ GRIMALDO Work Phone: [facility] Work Phone: 04-23-2021 15:35-0400 Body height 170.18 cm MD RAMIREZ GRIMALDO Work Phone: [facility] Work Phone: 04-23-2021 15:35-0400 Body mass index (BMI) [Ratio] 40.5 kg/m2 MD RAMIREZ GRIMALDO Work Phone: [facility] Work Phone: 04-23-2021 15:12-5517 Body weight 117.4 kg MD RAMIREZ GRIMALDO Work Phone: [facility] Work Phone: Encounters Encounter Date Encounter Type Care Provider Facility Start: 06-10-2023 End: 06-11-2023 [facility] Start: 05-23-2023 End: 05-24-2023 [facility] Start: 05-21-2023 End: 05-22-2023 [facility] Start: 05-16-2023 End: 05-17-2023 [facility] Start: 05-13-2023 End: 05-14-2023 [facility] Start: 05-09-2023 End: 05-10-2023 [facility] Start: 05-07-2023 End: 05-08-2023 [facility] Start: 05-07-2023 End: 05-07-2023 Subsequent hospital visit by physician Marcial Chaves PT [facility] Comment on above: Arrived Start: 05-02-2023 End: 05-03-2023 [facility] Start: 04-25-2023 End: 04-26-2023 [facility] Start: 04-23-2023 End: 04-24-2023 [facility] Start: 04-19-2023 [facility] Start: 04-17-2023 End: 04-18-2023 ambulatory [facility] Start: 04-17-2023 End: 04-17-2023 Subsequent hospital visit by physician Marcial Chaves PT [facility] Comment on above: Arrived Start: 04-15-2023 End: 04-16-2023 [facility] Start: 04-15-2023 End: 04-15-2023 Subsequent hospital visit by physician Nik Canales PTA [facility] Comment on above: Arrived Start: 04-11-2023 End: 04-12-2023 ambulatory DANIE AYERS [facility] Start: 03-11-2023 End: 03-14-2023 ambulatory [facility] Start: 03-01-2023 End: 03-02-2023 ambulatory [facility] Start: 08-22-2022 End: 08-23-2022 ambulatory [facility] Start: 08-22-2022 End: 08-22-2022 Subsequent hospital visit [...] patient visit Raf Wilson MD Work Phone: [facility] Comment on above: COVID-19 virus infec tion (Primary Dx); Vasovagal near-syncope Start: 03-15-2022 End: 03-15-2022 Subsequent hospital visit by physician [facility] Covid19 Pat Screening Schedule [facility] Comment on above: Suspected COVID-19 v irus infection Start: 02-12-2022 End: 02-12-2022 Subsequent hospital visit by physician [facility] Ekg [facility] EKG Comment on above: Palpitations Start: 01-20-2022 End: 01-20-2022 Subsequent hospital visit by physician Shyam Reynolds MD Work Phone: [facility] Comment on above: Controlled type 2 di abetes mellitus without complication, without long-term current use of insulin (HCC); Mixed hyperlipidemia Start: 01-01-2022 End: 01-01-2022 Emergency department patient visit Desmond Reynolds MD Work Phone: [facility] Comment on above: Lower abdominal pain (Primary Dx) Start: 07-24-2021 End: 07-24-2021 Subsequent hospital visit by physician Shyam Reynolds MD Work Phone: [facility] Comment on above: Mixed hyperlipidemia ; Benign essential HTN; Hair loss Start: 05-08-2021 End: 05-08-2021 Emergency department patient visit Keo Amaya MD Work Phone: [facility] Comment on above: Edema of left foot ( Primary Dx) Start: 04-23-2021 End: 04-23-2021 ambulatory [facility] Start: 04-23-2021 End: 04-27-2021 Evaluation and management of inpatient MD RAMIREZ GRIMALDO Work Phone: [facility] Start: 04-17-2021 End: 04-17-2021 Subsequent hospital visit by physician [facility] Covid19 Pat Screening Schedule [facility] PRE ADMIT Comment on above: Arrived Start: 04-13-2021 End: 04-13-2021 Subsequent hospital visit by physician [facility] Covid19 Pat Screening Schedule [facility] PRE ADMIT Comment on above: Suspected COVID-19 v irus infection Start: 08-16-2020 End: 08-16-2020 Subsequent hospital visit by physician Shyam Reynolds [facility] Comment on above: Mixed hyperlipidemia ; Uncontrolled type 2 diabetes mellitus with hyperglycemia (HCC) Start: 05-02-2020 End: 05-02-2020 Subsequent hospital visit by physician Shyam Reynolds [facility] Laboratory Comment on above: Controlled type 2 di abetes mellitus without complication, without long-term current use of insulin (HCC); Mixed hyperlipidemia; Benign essential HTN Start: 02-26-2018 End: 02-27-2018 Patient encounter [facility] Procedures Date Procedure Procedure Detail Performing [...] years Vaccine (2 of 2 - PPSV23) [facility] Start: 02-15-2027 DTaP/Tdap/Td vaccine (3 - Td or Tdap) DTaP/Tdap/Td vaccine (3 - Td or Tdap) [facility] Start: 02-15-2027 DTaP/Tdap/Td vaccine (3 - Td) DTaP/Tdap/Td vaccine (3 - Td) [place] Start: 03-01-2024 GFR test (Diabetes, CKD 3-4, OR last GFR 15-59) GFR test (Diabetes, CKD 3-4, OR last GFR 15-59) [facility] [email or web address] Start: 03-01-2024 Hemoglobin A1c measurement A1C test (Diabetic or Prediabetic) [facility] Start: 03-01-2024 Lipid panel Lipids [facility] [email or web address] Start: 03-01-2024 Urine screening for protein Diabetic Alb to Cr ratio (uACR) test [facility] [email or web address] Start: 09-09-2023 End: 09-09-2023 Patient encounter procedure [facility] Comment on above: 6m check up Start: 08-23-2023 Depression Screen Depression Screen [facility] [employer] [facility] Start: 08-22-2023 GFR test (Diabetes, CKD 3-4, OR last GFR 15-59) GFR test (Diabetes, CKD 3-4, OR last GFR 15-59) [facility] Start: 08-22-2023 Lipid panel Lipids [facility] Start: 05-16-2023 End: 05-16-2023 Patient encounter procedure 05/16/2023 4:00 PM EDT Appointment [facility] [address] [place] [address] Marcial Chaves PT [facility] Start: 05-13-2023 End: 05-13-2023 Patient encounter procedure 05/13/2023 4:45 PM EDT Appointment [facility] [address] [place] [address] Nik Canales PTA [facility] Start: 05-09-2023 End: 05-09-2023 Patient encounter procedure 05/09/2023 4:30 PM EDT Appointment [facility] [address] [place] [address] Marcial Chaves, PT $ BCBS-20.00 Copay-Rt PT Tendon Dysfunction-Blue Lopez, Fax [phone] [facility] Comment on above: $ BCBS-20.00 Copay-R t PT Tendon Dysfunction-Blue Lopez, Fax [phone] Start: 04-25-2023 End: 04-25-2023 Patient encounter procedure 04/25/2023 Appointment Physical Therapy Marcial Chaves PT [facility] Start: 04-23-2023 End: 04-23-2023 Patient encounter procedure 04/23/2023 Appointment Physical Therapy Nik Canales PTA [facility] Start: 04-17-2023 Subsequent hospital visit by physician 04/17/2023 Hospital Encounter Physical Therapy Marcial Chaves, PT [facility] Start: 03-19-2023 Influenza vaccination Flu vaccine (# 1) [facility] Start: 02-09-2023 Depression Screen Depression Screen [facility] Start: 01-20-2023 Hemoglobin A1c measurement A1C test (Diabetic or Prediabetic) [facility] Start: 01-20-2023 Lipid panel Lipids [facility] Start: 01-20-2023 Urine screening for protein Diabetic microalbuminuria test [facility] Start: 08-23-2022 End: 08-23-2022 Patient encounter procedure 08/23/2022 Office Visit Shyam Garcia MD [address] [place] [address] [facility] Start: 07-24-2022 Creatinine measurement Creatinine mo [facility] Start: 07-24-2022 Diabetic foot examination Diabetic f oot exam [facility] Start: 07-24-2022 Hemoglobin A1c measurement A1C test (Diabetic or Prediabetic) [facility] Start: 07-24-2022 Lipid panel [facility] Start: 07-24-2022 Potassium monitoring Potassium monit oring [facility] Start: 04-19-2022 Influenza vaccination M [facility] Start: 03-19-2022 Influenza vaccination Flu vaccine (# 1) [facility] Start: 01-22-2022 End: 01-22-2022 Patient encounter procedure 01/22/2022 Office Visit Family Shyam Strickland MD [address] [place] [address] [facility] Start: 11-24-2021 Hemoglobin A1c measurement A1C test (Diabetic or Prediabetic) [facility] Work Phone: Start: 11-24-2021 Lipid panel Lipid screen [facility] Work Phone: Start: 08-30-2021 Depression Screen Depression Screen [facility] Start: 06-13-2021 End: 06-13-2021 Patient encounter procedure 06/13/2021 Office Visit Shyam Garcia MD [address] [place] [address] [phone] [facility] Start: 05-02-2021 Creatinine measurement Creatinine mo [facility] [place], [place] Start: 05-02-2021 Diabetic microalbumi dakota test Diabetic microalbuminuria test [facility] Start: 05-02-2021 HbA1c (Bld) [Mass fraction] A1C test (Diabetic or Prediabetic) [place], [place] Start: 05-02-2021 Lipid panel Lipid screen [place] Start: 05-02-2021 Potassium monitoring Potassium monit [place], [place] Start: 05-02-2021 Urine screening for protein [facility] Start: 04-19-2021 Influenza vaccination Flu vaccine (# 1) [facility] Start: 10-05-2020 Creatinine measurement Creatinine mo nitoring [place] Start: 10-05-2020 HbA1c (Bld) [Mass fraction] A1C test (Diabetic or Prediabetic) [place] Start: 10-05-2020 Lipid panel Lipid screen [place] Start: 10-05-2020 Potassium monitoring Potassium monit [place], [place] Start: 09-07-2020 Diabetic retinal exam Diabetic retin al exam [facility] Start: 09-07-2020 Glaucoma screening Diabetic retinal exam [facility] Start: 08-30-2020 End: 08-30-2020 Office Visit 08/30/2020 Office Visit Family Medicine Shyam Reynolds MD [address] [place] [address] [phone] [facility] Start: 05-03-2020 End: 05-03-2020 Office Visit 05/03/2020 Office Visit Family Shyam Strickland MD [address] [place] [address] [phone] [facility] Start: 04-19-2020 Influenza vaccination Flu vaccine (# 1) [place] Start: 07-20-2019 Diabetic microalbumi dakota test Diabetic microalbuminuria test [place] Start: 02-15-2018 Diabetic foot examination Diabetic f oot exam [place] Start: 02-15-2018 Pneumococcal 0-64 ye ars Vaccine (2 - PCV) Pneumococcal 0-64 years Vaccine (2 - PCV) [facility] Start: 2001 Hepatitis B vaccine (1 of 3 - Risk 3-dose series) Hepatitis B vaccine (1 of 3 - Risk 3-dose series) [facility] Start: 2000 Hepatitis C screening Hepatitis C [facility] Start: 1997 HIV screening HIV screen [facility] Start: 1994 COVID-19 Vaccine (1) COVID-19 Vaccin e (1) [facility] Start: 1987 COVID-19 Vaccine (1) COVID-19 Vaccin e (1) [facility] Start: 1983 Varicella vaccine (1 of 2 - 2-dose childhood series) Varicella vaccine (1 of 2 - 2-dose childhood series) [facility] Start: 1982 COVID-19 Vaccine (#1) COVID-19 Vacci ne (#1) [facility] Start: 1982 Hepatitis B vaccine (1 of 3 - 3-dose series) Hepatitis B vaccine (1 of 3 - 3-dose series) [facility] Start: 1982 Hepatitis C screening Hepatitis C [facility] End: 02-12-2022 Cardiac event monitor Cardiac event monitor Cardiac Services Routine Palpitations 1 Occurrences starting 02/12/2022 until 02/12/2022 [facility] [employer] Phone: Comment on above: 1 Occurrences starti ng 02/12/2022 until 02/12/2022 End: 04-13-2021 COVID-19 COVID-19 Lab Routine Suspected COVID-19 virus infection 1 Occurrences starting 04/13/2021 until 04/13/2021 [facility] [employer] Phone: Comment on above: 1 Occurrences starti ng 04/13/2021 until 04/13/2021 COVID-19 [facility] Phone: End: 04-17-2021 COVID-19 [facility] Phone: Comment on above: One Time for 1 Occur rences starting 04/17/2021 until 04/17/2021 Once for 1 Occurrenc es starting 04/17/2021 until 04/17/2021 EKG 12 Lead EKG 12 Lead ECG STAT 04/14/2022 8:51 PM EDT [facility] [email or web address] Work Phone: End: 05-02-2020 HbA1c (Bld) [Mass fraction] Hemoglobin A1C Lab Routine Controlled type 2 diabetes mellitus without complication, without long-term current use of insulin ([facility]) 1 Occurrences starting 05/02/2020 until 05/02/2020 [place] Comment on above: 1 Occurrences starti ng 05/02/2020 until 05/02/2020 HbA1c (Bld) [Mass fraction] Hemoglobin A1C Lab Routine Controlled type 2 diabetes mellitus without complication, without long-term current use of insulin ([facility]) 05/02/2020 6:57 AM EDT [place] End: 01-20-2022 Hemoglobin A1c/Hemoglobin.total in Blood [email or web address] Work Phone: Comment on above: 1 Occurrences starti ng 01/20/2022 until 01/20/2022 Lactate [Moles/volum e] in Serum or Plasma [facility] Work Phone: End: 01-20-2022 Microalbumin / Creatinine Urine Ratio Microalbumin / Creatinine Urine Ratio Lab Routine Controlled type 2 diabetes mellitus without complication, without long-term current use of insulin ([facility]) 1 Occurrences starting 01/20/2022 until 01/20/2022 [email or web address] Work Phone: Comment on above: 1 Occurrences starti ng 01/20/2022 until 01/20/2022 Patient Education COVID-19 (Key navirus Disease 2019) (DC) [facility] Work Phone: Patient referral [facility] Work Phone: Immunizations Immunization Date Immunization Notes Care Provider Shraon boucher 02-15-2017 pneumococcal polysac charide vaccine, [facility] [place] 02-15-2017 tetanus toxoid, redu zulma diphtheria toxoid, and acellular pertussis vaccine, adsorbed [facility] 04-03-2010 tetanus toxoid, redu zulma diphtheria toxoid, and acellular pertussis vaccine, adsorbed [facility]wh Schedule [facility] Work Phone: Payers Date Payer Category Payer Unknown [id number] 2015 Unknown [id number] 1982 Unknown [id number] 2.16.8 [id number] 1982 Unknown [id number] 2.16.8 [id number] 1982 Unknown [id number] 2.16.8 [id number] 1982 Unknown [id number] 2.16.8 [id number] 1982 Unknown [id number] 2.16.8 [id number] 1982 Unknown [id number] 2.16.8 [id number] 1982 Unknown [id number] 2.16.8 [id number] 1982 Unknown [id number] 2.16.8 [id number] 1982 Unknown [id number] 2.16.8 [id number] 1982 Unknown [id number] 2.16.8 [id number] 1982 Unknown [id number] 2.16.8 [id number] 1982 Unknown [id number] 2.16.8 [id number] 1982 Unknown [id number] 2.16.8 [id number] 1982 Unknown [id number] 2.16.8 [id number] 1982 Unknown [id number] 2.16.8 [id number] 1982 Unknown [id number] 2.16.8 [id number] 1982 Unknown [id number] 2.16.8 [id number] Social History Date Type Detail Facility Start: 05-17-2020 End: 04-14-2022 Tobacco smoking status NHIS Never smoker [place] Start: 05-17-2020 End: 04-14-2022 Tobacco use and exposure Never used [place] Start: 05-17-2020 End: 02-09-2022 Alcohol intake Current drinker of alcohol (finding) [place] Start: 10-22-2019 History SDOH Financial 4 [place] Start: 10-22-2019 End: 02-07-2023 History SDOH Food Worry 1 [place], [place] Start: 10-22-2019 End: 02-07-2023 History SDOH Transport Med 2 [place] Start: 08-06-2013 Alcohol Comment Rarely, maybe once a year [place], [place] Start: 1980 Sex Assigned At Not on file [place], [place] Start: 02-24-2021 End: 02-07-2023 History SDOH Financial 5 [facility] Work Phone: Start: 04-23-2021 [facility] Work Phone: Start: 04-23-2021 With Family [facility] Work Phone: Start: 04-23-2021 Concerned [facility] Work Phone: Start: 04-23-2021 None [facility] Work Phone: Start: 04-23-2021 Self [facility] Work Phone: Start: 1980 Sex Assigned At Female [facility] Work Phone: Start: 12-22-2021 End: 04-14-2022 Exposure to SARS-CoV-2 (event) Not sure [facility] Start: 04-14-2022 End: 03-04-2023 Alcohol intake Ex-drinker (finding) [employer] Work Phone: Start: 02-07-2023 End: 03-04-2023 History of Social function [employer] Start: 02-07-2023 End: 03-04-2023 [facility] use [facility] How hard is it for y ou to pay for the very basics like food, housing, medical care, and heating Not hard at all [employer] (I/We) worried maureen er (my/our) food would run out before (I/we) got money to buy more. Never true [employer] At any time in the p ast 12 months, were you homeless or living in retirement [including now]? No [employer] Medical Equipment Procedure Code Equipment Code Equipment Origin al Text Equipment Identifier Dates Carmen monitor wi th test strips and lancets. Test BS daily and prn. [id number] Start: 08-04-2013 Goals Date Patient Goal Desired Activity /State Functional Status Date Assessment Result Facility 04-27-2021 Functional status Ambulates [facility] Work Phone: 04-23-2021 Functional status Bathing Ability Indepen dent [facility] Work Phone: Mental Status Date Assessment Result Facility 04-27-2021 Cognitive function Appropriate;Cooperativ e [facility] Work Phone: 04-23-2021 Cognitive function No Impairment [facility] Work Phone: Clinical Notes 04-25-2021 to 04-17-2023 Marcial Chaves, PT - 04/17/2023 3:30 PM Claire Naranjo RN - 04/14/2022 9:06 PM Claire Naranjo RN - 04/14/2022 8:52 PM Karthik Duran RCP - 02/12/2022 8:00 AM EDT Note Date & Type Note Facility 04-17-2023 History of Present illness Narrative Images from the original note were not included. [facility] Daily Note Date: 04/17/2023 [...] compliance with HEP to optimize therapy progress Food Service Coordinator Goals Time Frame for Food Service Coordinator Goals : 8 visits Fpc Goal 1: Patient will demonstrate right ankle MMT to 5/5 in all planes to allow improved ambulation Food Service Coordinator Goal 2: Patient will demonstrate SLS on right x30 with low pain level Food Service Coordinator Goal 3: Patient will improve LEFS score from 27/80 to 60/80 to demonstrate functional improvement Post Treatment Pain: 3/10 Time In: 1530 Time Out : 1612 Timed Code Treatment Minutes: 28 Minutes Total Treatment Time: 42 Minutes Marcial Chaves, PT Date: 04/17/2023 documented in this encounter [facility] 04-14-2022 History of Present illness Narrative Patient contacted per patient request. Saud will be coming to the ER t osee patient at her request. Patient states that she thinks she is going to pass out. Patient placed in wheel chair and moved to room 8. EKG ordered. VSS. Patient visibly pale in the face. Patient eyes open and looking at va underwriter entire time and following all commands. documented in this encounter [employer] Phone: 02-12-2022 History of Present illness Narrative The patient was educated on the use of an event monitor. The patient's comprehension was high. The patient was able to verbalize recall. The patient was instructed on how and when to return the monitor. documented in this encounter [employer] Phone: 06-16-2021 Hospital Discharge instructions Additional Instructions [...] STOP. Call an acute care nurse at [phone] for any questions regarding these instructions. Your health information can be accessed through an application such as those used on a smartphone. Depending on the chosen application, you may be able to access information such as your medications, allergies, or lab results. If you are interested in using an application, please call the [employer] at [phone] We have appreciated the opportunity to be your healthcare provider. We sincerely hope that we have met your expectations. We strive for excellence. [employer] surveys are mailed to our customers after service is provided and we use your input from the completed and returned surveys to improve our care delivery. We encourage you to submit this feedback so that we may continue to be your hospital of choice. Thank you. Name of RN preparing this discharge: Nicolette Christie RN. [facility] Work Phone: 05-08-2021 Hospital Discharge instructions Additional [...] STOP. Call an acute care nurse at [phone] for any questions regarding these instructions. Your health information can be accessed through an application such as those used on a smartphone. Depending on the chosen application, you may be able to access information such as your medications, allergies, or lab results. If you are interested in using an application, please call the [employer] at [phone] We have appreciated the opportunity to be your healthcare provider. We sincerely hope that we have met your expectations. We strive for excellence. [employer] surveys are mailed to our customers after service is provided and we use your input from the completed and returned surveys to improve our care delivery. We encourage you to submit this feedback so that we may continue to be your hospital of choice. Thank you. Name of RN preparing this discharge: Nicolette Christie RN. [facility] Work Phone: 2021 Hospital Discharge instructions Additional [...] STOP. Call an acute care nurse at [phone] for any questions regarding these instructions. Your health information can be accessed through an application such as those used on a smartphone. Depending on the chosen application, you may be able to access information such as your medications, allergies, or lab results. If you are interested in using an application, please call the [employer] at [phone] We have appreciated the opportunity to be your healthcare provider. We sincerely hope that we have met your expectations. We strive for excellence. [employer] surveys are mailed to our customers after service is provided and we use your input from the completed and returned surveys to improve our care delivery. We encourage you to submit this feedback so that we may continue to be your hospital of choice. Thank you. Name of RN preparing this discharge: Nicolette Christie RN. [facility] Work Phone: 04-27-2021 Note [facility] Patient: DELILAH MANCUSO DISCHARGE SUMMARY Admit Date: 04/23/21 /Age: 09 1980 Attending Physician: Júnior Valadez MD Med Rec #: [id number] Date: 04/27/21 Time of Encounter: 12:03 Provisional [...] reports loss of taste. He was taking [id number] medications for cough and fever but symptoms [...] #4 tablet 04/27/21 Primary Care Physician: [facility] - 1 week. Discharge Disposition: Home Total time spent at this encounter:: 35 minutes Authenticated on: 04/27/21 120 [id number] 02 02 -[id number] CC: Júnior Valadez MD [facility] 04-27-2021 Hospital Discharge instructions Additional Instructions Reason [...] STOP. Call an acute care nurse at [phone] for any questions regarding these instructions. Your health information can be accessed through an application such as those used on a smartphone. Depending on the chosen application, you may be able to access information such as your medications, allergies, or lab results. If you are interested in using an application, please call the [employer] at [phone] We have appreciated the opportunity to be your healthcare provider. We sincerely hope that we have met your expectations. We strive for excellence. [employer] surveys are mailed to our customers after service is provided and we use your input from the completed and returned surveys to improve our care delivery. We encourage you to submit this feedback so that we may continue to be your hospital of choice. Thank you. Name of RN preparing this discharge: Nicolette Christie RN. [facility] Work Phone: 04-26-2021 Note [facility]: DELILAH MANCUSO PHYSICIAN PROGRESS NOTE Admit Date: 04/23/21 /Age: 09 1980 Attending Physician: Júnior Valadez MD Dictating Physician: Júnior Valadez MD Med Rec #: [id number] Date: 04/26/21 Time of Encounter: 10:42 Interval [...] 07/22/21 15:09 Albuterol Sulfate 2.5 mg/ (Ipratropium [place] 0.5 mg) 0 mg IH RESP PRN [...] 100 mls @ 200 mls/hr IV DAILY [facility] Stop: 04/27/21 09:29 Last Admin: 04/26/21 09:49 Dose: 200 mls/hr Documented by: Levofloxacin/Dextrose (Levaquin Iv) 500 mg in 100 mls @ 100 mls/hr IV DAILY [facility] Stop: 05/04/21 09:59 Last Admin: 04/26/21 09:49 Dose: Not Given Documented by: Insulin Human Lispro (Insulin Lispro (Humalog) 1 Unit/0.01 Ml Inj) 0 unit SUBCUT TIDWM [facility]; Protocol Stop: 07/22/21 16:59 Last Admin: 04/26/21 08:00 Dose: 2 units Documented by: Lisinopril (Lisinopril (Zestril) 20 Mg Tablet) 20 mg PO DAILY [facility] Stop: 07/23/21 08:59 Last Admin: 04/26/21 08:13 Dose: 20 mg Documented by: Bisoprolol-Hctz 2.5- (6.25 Mg) 1 tab PO DAILY [facility] Stop: 07/23/21 08:59 Last Admin: 04/26/21 08:16 Dose: 1 tab Documented by: Non-Formulary Medication (Empagliflozin [Jardiance]) 10 mg PO DAILY [facility] Stop: 07/23/21 08:59 Last Admin: 04/26/21 08:16 [...] home occasions Morbid obesity, BMI 40 Meet [facility] Midnight Rule Requirement: Yes Hospital Certify Text: {This admission will require a hospital stay exceeding two midnights for the care and treatment of the following condition} Authenticated on: 04/26/21 [id number] [id number] [phone] CC: [facility] 04-25-2021 Note [facility] Patient: DELILAH MANCUSO PHYSICIAN PROGRESS NOTE Admit Date: 04/23/21 /Age: 09 1980 Attending Physician: Júnior Valadez MD Dictating Physician: Júnior Valadez MD Med Rec #: [id number] Date: 04/25/21 Time of Encounter: 11:34 Interval [...] 07/22/21 15:09 Albuterol Sulfate 2.5 mg/ (Ipratropium [place] 0.5 mg) 0 mg IH RESP PRN [...] 100 mls @ 100 mls/hr IV DAILY [facility] Stop: 05/04/21 09:59 Insulin Human Lispro (Insulin Lispro (Humalog) 1 Unit/0.01 Ml Inj) 0 unit SUBCUT TIDWM [facility]; Protocol Stop: 07/22/21 16:59 Last Admin: 04/25/21 08:20 Dose: 2 units Documented by: Lisinopril (Lisinopril (Zestril) 20 Mg Tablet) 20 mg PO DAILY [facility] Stop: 07/23/21 08:59 Last Admin: 04/25/21 08:21 Dose: 20 mg Documented by: Bisoprolol-Hctz 2.5- (6.25 Mg) 1 tab PO DAILY [facility] Stop: 07/23/21 08:59 Last Admin: 04/25/21 08:21 Dose: 1 tab Documented by: Non-Formulary Medication (Empagliflozin [Jardiance]) 10 mg PO DAILY [facility] Stop: 07/23/21 08:59 Last Admin: 04/25/21 08:21 [...] home occasions Morbid obesity, BMI 40 Meet [facility] Midnight Rule Requirement: Yes Hospital Certify Text: {This admission will require a hospital stay exceeding two midnights for the care and treatment of the following condition} Authenticated on: 04/25/21 1135 [id number] [phone] CC: [facility] 04-25-2021 Note [facility] Patient: DELILAH MANCUSO HISTORY AND PHYSICAL Admit Date: 04/23/21 /Age: 09 1980 Attending Physician: Júnior Valadez MD Med Rec #: [id number] Date: 04/24/21 Time of Encounter: 10:30 Chief [...] reports loss of taste. He was taking iixd-odr-[id number] medications for cough and fever but symptoms [...] home occasions Morbid obesity, BMI 40 Meet [facility] Midnight Rule Requirement: Yes Hospital Certify Text: {This admission will require a hospital stay exceeding two midnights for the care and treatment of the following condition} - VTE Medications Was VTE prophylaxis medication prescribed?: Yes - VTE Device Was a VTE prophylaxis device ordered?: Yes Authenticated on: 04/25/21920/ [phone] CC: Júnior Valadez MD [facility] Chief complaint+Reason for visit Narrative Reason for Visit Pneumonia due to COVID-19 virus [facility] Work Phone: Evaluation note* Diagnosis Suspected COVID-19 virus infection documented in this encounter [employer] Phone: evaluation note* Diagnosis Onset Date Resolution Status Pneumonia due to COVID-19 virus acute [facility] Work Phone: Evaluation note* Diagnosis Edema of left foot- Primary documented in this encounter [employer] Phone: evaluation note* Diagnosis Mixed hyperlipidemia Benign essential HTN Essential hypertension, benign Hair loss Alopecia, unspecified documented in this encounter [facility] Phone: evaluation note* Diagnosis Lower abdominal pain- Primary Abdominal pain, other specified site documented in this encounter [employer] Phone: evaluation note* Diagnosis Controlled type 2 diabetes mellitus without complication, without long-term current use of insulin (HCC) Mixed hyperlipidemia documented in this encounter [facility] [employer] Phone: evaluation note* Diagnosis Palpitations documented in this encounter [facility] [employer] Phone: evaluation note* Diagnosis Suspected COVID-19 virus infection documented in this encounter [facility] [employer] Phone: evaluation note* Diagnosis COVID-19 virus infection- Primary Vasovagal near-syncope Syncope and collapse documented in this encounter [facility] [employer] Phone: evaluation note* Diagnosis Uncontrolled type 2 diabetes mellitus with hyperglycemia (HCC) Mixed hyperlipidemia Encounter for hepatitis C screening test for low risk patient Screening for human immunodeficiency virus without presence of risk factors Special screening examination for other specified viral diseases Benign essential HTN Essential hypertension, benign documented in this encounter [facility] [employer] Phone: Hospital Discharge instructions* Attachments The following attachments cannot be sent through Care Everywhere. * Edema: Leg and Ankle ([place]) [facility] Discharge [facility]* Attachments The following attachments cannot be sent through Care Everywhere. * Abdominal Pain ([place]) [facility]: Hospital Discharge instructions* Attachments The following attachments cannot be sent through Care Everywhere. * Coronavirus Disease (COVID-19): General Info ([place]) * Coronavirus Disease (COVID-19): Isolation ([place]) * Vasovagal Syncope ([place]) * Lightheadedness or Faintness ([place]) * Fainting ([place]) [facility]: Summary Purpose Family History No Family History Records FoundNo Family History Records FoundNo Family History Records FoundNo Family History Records FoundNo Family History Records Found Advance Directives No Advanced Directives Records FoundDocuments on File Type Date Recorded Patient Control System Manager Expl anation ACP-Advance Directive ACP-Power of Chemistry Quality Control Analyst Advance Directive Response Recorded Date/ Time State DNR No April 23 11:49am Living Will No April 23 4:53pm Advanced Directives Not interested April 10:22am Advance Directive Response Recorded Date/ Time Advanced Directives Not interested April 10:22am Living Will No April 23 4:53pm State DNR No April 23 11:49am Documents on File Type Date Recorded Patient Control System Manager Expl anation ACP-Advance Directive ACP-Power of Chemistry Quality Control Analyst Procedure Findings Note Patient: DELILAH MANCUSO MR [...] list: All Problems Diabetes / SNOMED CT 599202276 / Confirmed Uterine prolapse / SNOMED CT 03684934 / Confirmed Resolved: Hypertension / SNOMED CT 9909266156 Physical Examination Vital Signs 01/15/2020 10:51 EDT [...] Procedures Cardiac event monitor [place] [address] Referral ID Status Reason Start Date Expiration Date Visits Re quested Visits Authorized [id number] Open 02/16/2022 02/16/2023 1 1 Additional Source Comments INFORMATION SOURCE (unrecogn ized section and content) DATE CREATED AUTHOR 02/27/2018 [facility] DATE CREATED AUTHOR AUTHOR'S ORGANIZ ATION 01/25/2020 Eleazar Bass [facility] DATE CREATED AUTHOR AUTHOR'S ORGANIZ ATION 04/24/2021 [facility] DATE CREATED AUTHOR AUTHOR'S ORGANIZ ATION 06/17/2021 [facility] DATE CREATED AUTHOR AUTHOR'S ORGANIZ ATION [...] Procedures Cardiac event monitor Shyam Reynolds [place] [address] [place] [address] Referral ID Status Reason Start Date Expiration Date Visits Re quested Visits Authorized [id number] Open 02/16/2022 02/16/2023 1 1 Reason Comments Fever 101.4 Generalized Body Aches States possible e xposure by student Care Teams (unrecognized sec tion and content) Anode Builder Relationship Specialty Start Date End Date Shyam Reynolds [place] [address] [place] [address] PCP - General Internal Medicine 10/11/11 Anode Builder Relationship Specialty Start Date End Date Shyam Reynolds MD [address] [place] [address] PCP - General Internal Medicine 10/11/11 Anode Builder Relationship Specialty Start Date End Date Shyam Reynolds MD [address] [place] [address] PCP - General Internal Medicine 10/11/11 Anode Builder Relationship Specialty Start Date End Date Shyam Reynolds MD [address] [place] [address] PCP - General Internal Medicine 10/11/11 Anode Builder Relationship Specialty Start Date End Date Back, MD Shyam [address] [place] [address] PCP - General Internal Medicine 10/11/11 Anode Builder Relationship Specialty Start Date End Date Back, MD Shyam [address] [place] [address] PCP - General Internal Medicine 10/11/11 Anode Builder Relationship Specialty Start Date End Date Back, MD Shyam [address] [place] [address] PCP - General Internal Medicine 10/11/11 Anode Builder Relationship Specialty Start Date End Date Back, MD Shyam [address] [place] [address] PCP - General Internal Medicine 10/11/11 Anode Builder Relationship Specialty Start Date End Date Back, MD Shyam [address] [place] [address] PCP - General Internal Medicine 10/11/11 Ordered [...] BE BASED ON THE PRIMARY CLINICAL RECORDS. [facility] [employer] [facility]. provides no warranty or guarantee of the accuracy or completeness of information in this document.
[2023-08-16 06:57] LABS: Glucometer 132 mg/dL (74-106)
[2023-08-16] MEDS: LACTATED RINGER'S SOLUTION 1,000 ML 50 ML IV ×2 (07:19→09:10)
[2023-08-16] MEDS: CLINDAMYCIN PHOSPHATE/D5W 900 MG/50 ML PIGGYBACK 100 MG IV (07:38)
--- NOTE | 2023-08-16 08:17 | P.ORON_ITS ---
Brief Operative Note Date of procedure: 08/16/23 Pre-op diagnosis: right foot surgical dehiscence, retained hardware Post-op diagnosis: same as pre-op Procedure: PROCEDURE PERFORMED: 1. delayed primary closure lateral heel wound, right 2. Removal of deep orthopedic hardware right calcaneus 3. Application of allogenic skin substitute 6.25 cm2, Right posterior heel wound INDICATION FOR PROCEDURE: patient is a 43-year-old female who underwent right calcaneal osteotomies, cotton, Kidner and gastrocnemius recession for stage II posterior tibial tendon dysfunction on 06/27/23. Recoveries been complicated by wound dehiscence of her posterior heel and lateral heel. over the last month she did not respond to local wound care with Santyl and was unable to tolerate debridement in the office. I discussed potential risks and benefits of continued conservative local wound care versus surgical intervention and the patient wished to proceed with the above procedures INTRAOPERATIVE FINDINGS: Preoperative wound measurements: 1. lateral heel - 2.0 x 0.4 x 0.2 cm 2. posterior heel - 3.2 x 3.0 x 0.3 cm Lateral heel wound was full thickness but no exposure of deep soft tissue or bone and was primarily fibrotic. Posterior heel wound probes deeply to the level periosteum with dry eschar and fibrotic wound base. No signs of acute infection were noted. Calcaneal screws were stable and upon removal there was no motion at the osteotomy site confirming stability and osseous healing. PROCEDURE IN DETAIL: Patient was identified in pre op and consent was reviewed. Correct side and site were identified and marked. Pre-op antibiotics were started. Patient was brought to OR suite and was intubated then placed on table in a prone position. Operative extremity was prepped and draped in usual sterile fashion. Formal time-out was performed the tourniquet was inflated. With attention to the ulcer located on the lateral heel was excised and all nonviable question tissue was removed. No signs of infection. Negative probe to bone. the wound was irrigated with copious saline. The wound was then primarily closed with skin suture without tension. Then with attention to the posterior heel wound which was excised in an ellipse fashion. All eschar and fibrotic tissue was removed and the wound didn't probe deeply to periosteum but no acute signs of infection were noted. The calcaneal screws were identified and removed with appropriate screwdriver. Then with rongeurs and curettes the screw holes and the calcaneal tuberosity was aggressively debrided to healthy bleeding bone. Bone quality was within normal limits and appeared healthy. under fluoroscopy the osteotomy site was stressed and no motion was noted. The surgical site was irrigated with 3 L of normal saline. Then bone void filler impregnated with vancomycin was injected into the screw holes under fluoroscopic guidance. the tourniquet was deflated and prompt hyperemic response is noted all tissue did perfuse normally. the proximal and distal aspect of the wound were then closed without tension and the wound now measured 2.5 x 2.5 cm. In allogenic skin substitute was then placed on the wound base and secured to the periwound skin with adrien. multiple layers of Adaptic followed by 4 x 4's were applied. Cast padding was applied from the forefoot to the popliteal fossa and multiple layers were placed followed by a layer of Deuce wraps followed by additional layers of cast padding and an additional layer of Deuce wraps. Patient tolerated the procedure and anesthesia well and was transported to the recovery room with vital signs stable and capillary refill to the toes POSTOPERATIVE PLAN: Discharge home under family's care Post op instructions provided verbally and written Keep dressing clean, dry and intact unless otherwise directed; reinforce if needed prescription(s) were placed in chart WB Status: toe-touch weightbearing on the right Follow-up within 1 week Implants: [employer]askin [id number] allogenic skin substitute (100% of graft was used 5 cc Cerament bone void filler with 1 gm vancomycin powder (approximately 1/2 was used) Anesthesia: General-ET Surgeon: Nahid Walker Manager Of Housekeeping: Blue Lopez Estimated blood loss (mL): 10 Condition: stable Disposition: PACU
[2023-08-16] MEDS: VANCOMYCIN HCL 1,000 MG VIAL 1000 MG TOPICAL (08:58)
[2023-08-16] MEDS: BUPIVACAINE HCL 0.5% PF 50 MG/10 ML VIAL INJ (09:21)
[2023-08-16] MEDS: LIDOCAINE HCL 1% 100 MG/10 ML MDV INJ (09:22)
[2023-08-16 09:49] LABS: Glucometer 161 mg/dL (74-106)
--- NOTE | 2023-08-16 10:42 | PC.NURSE ---
Extremity elevated and ice applied behind knee
--- NOTE | 2023-08-16 11:15 | PC.NURSE ---
Drowsy; awakens to verbal stimuli immediately
== END 2023-08-16 12:00 | disposition home or self-care (01) ==
PROVIDERS: Visit Provider Podiatrist Foot & Ankle Surgery
PROC: (CPT 400; principal; 2023-08-16 07:30)
DX: T81.31XA Disruption of external operation (surgical) wound, not elsewhere classified, initial encounter (principal); T84.84XA Pain due to internal orthopedic prosthetic devices, implants and grafts, initial encounter; E11.9 Type 2 diabetes mellitus without complications; D64.9 Anemia, unspecified; Z86.16 Personal history of COVID-19; Z87.01 Personal history of pneumonia (recurrent); I10 Essential (primary) hypertension; Z79.84 Long term (current) use of oral hypoglycemic drugs; Z79.82 Long term (current) use of aspirin; E78.5 Hyperlipidemia, unspecified
CPT/HCPCS: 12020; 15004; 15275; 20680; 36415; 76000; 82948; 87070; 87076; 87102; 87116; 87150; 87186; 87205; 87206; 88305; 88311; 99999; C1713; J2704; J3370; Q4121

== ENCOUNTER 2023-09-03 10:07 | Outpatient (OUT) | payer BC, SELFPAY ==
--- NOTE | 2023-09-03 | XR_ITS ---
[address] [address] Patient Name: DELILAH MANCUSO MRN: [id number] date: 1980 Sex: F Assigned Patient Location: [facility] Current Patient Location: [facility] Accession/Order Number: [id number] Exam Date: 09/03/2023 10:07 Report Date: 09/03/2023 11:29 At the request of: DANIE AYERS Procedure: XR foot RT min 3V EXAM: XR foot RT min 3V HISTORY: RIGHT FOOT PAIN COMPARISON: 08/14/2023 TECHNIQUE: 3 views Findings/impression: No significant change from prior exam. No acute fracture or dislocation. Status post removal of fixation screws of the posterior calcaneus. A centimeters and branch placement of the anterior calcaneus, unchanged. No significant degenerative changes. Electronically authenticated by: BRADEN HUMMEL Date: 09/03/2023 11:29
--- OUTSIDE RECORDS SUMMARY | 2023-09-03 10:13 | XMS_ITS | CCD ---
Author Name Unknown Address [address] [place] [address] Organization [facility] Care Team Providers Care Accountant Property Name Role Phone BACK, SHYAM Unavailable Unavailable BACK, SHYAM Unavailable Unavailable Back, Shyam Primary Care Provider Back Shyam RODRIGUEZ Primary Care Provider [phone] MD RAMIREZ GRIMALDOIS Emergency Provider MD JÚNIOR VALADEZ Admit Provider MD JÚNIOR VALADEZ Attending Provider Back Shyam RODRIGUEZ Primary Care Provider Back Shyam RODRIGUEZ Primary Care Provider Back Shyam RODRIGUEZ Primary Care Provider Back Shyam RODRIGUEZ Primary Care Provider [phone] DANIE AYERS Referring Unavailable BACK, SHYAM Primary [...] sources) Amoxicillin Drug Allergy 4 Nausea Only [place], [place] (15 sources) Chlorine Propensity to adverse reactions to drug 3 Hives [place], [place] (11 sources) Lavender Oil Propensity to adverse reactions to drug 1 Shortness Of Breath [facility] Medications Current Medications Medication Drug Class(es) Dates Sig (Normalized) Sig (Original) [id number] 200 actuat albuterol 0.09 mg/actuat metered dose [...] oral tablet (7 sources) alpha-Adrenergic Agonist, Uncompetitive R-iwkmfg-G-aspartat e Receptor Antagonist, Sigma-1 Agonist Start: 04-23-2021 [...] tablet 1 11/20/2021 Active Start: 04-17-2021 lisinopril (CT INIVIL;ZESTRIL) 20 MG tablet Indications: Benign essential HTN TAKE 1 TABLET DAILY 90 tablet 1 04/17/2021 Active Start: 11-09-2020 lisinopril (CT INIVIL;ZESTRIL) 20 MG tablet Indications: Benign essential HTN TAKE 1 TABLET DAILY 90 tablet 1 11/09/2020 Active Start: 08-17-2019 lisinopril (CT INIVIL;ZESTRIL) 20 MG tablet Indications: Benign essential [...] Lenny Mane MD 03/12/23 Final result Normal [facility] Comp Metabolic Profon 2022 Albumin [Mass/Vol] 4.1 g/dL Normal 3.5-5.2 [facility] Comment on above: Performed By: #### Z FAST, CP #### [facility] [address] [place] [address] Forensic Sergeant: Leonides Brunner MD #### GLYHGB, LIPR #### [address] [id number] Forensic Sergeant: Virgil Shelton MD Alkaline Phos 76 U/L Normal 35-104 [facility] Comment on above: Performed By: #### Z FAST, CP #### [facility] [address] [place], [place] 0001390 Forensic Sergeant: Leonides Brunner MD #### GLYHGB, LIPR #### [address] [phone] Forensic Sergeant: Virgil Shelton MD ALT [Catalytic activity/Vol] 22 U/L Normal 5-33 [facility] Comment on above: Performed By: #### Z FAST, CP #### [facility] [address] [place], [place] [phone] Forensic Sergeant: Leonides Brunner MD #### GLYHGB, LIPR #### [address] [address] Forensic Sergeant: Virgil Shelton MD Anion gap [Moles/Vol] 10 mmol/L Normal 9-17 [facility] Comment on above: Performed By: #### Z FAST, CP #### [facility] [address] [place] [address] Forensic Sergeant: Leonides Brunner MD #### GLYHGB, LIPR #### [facility] [address] [place] [address] Forensic Sergeant: Virgil Shelton MD AST [Catalytic activity/Vol] 14 U/L Normal <32 [facility] Comment on above: Performed By: #### Makayla FAST, CP #### [facility] [address] [place] [address] Forensic Sergeant: Leonides Brunner MD #### SEAN, LIPR #### [address] [address] [place], [place] [phone] Forensic Sergeant: Virgil Shelton MD Bilirubin [Mass/Vol] 0.4 mg/dL Normal 0.3-1.2 [facility] Comment on above: Performed By: #### Makayla FAST, CP #### [facility] [address] [place] [address] Forensic Sergeant: Leonides Brunner MD #### SEAN, LIPR #### [facility] [address] [place] [address] Forensic Sergeant: Virgil Shelton MD BUN/CRE Ratio 25 High 9-20 [facility] Comment on above: Performed By: #### Makayla FAST, CP #### [facility] [address] [place] [address] Forensic Sergeant: Leonides Brunner MD #### GLYHGB, LIPR #### [facility] [address] [place] [address] Forensic Sergeant: Virgil Shelton MD Calcium [Mass/Vol] 9.1 mg/dL Normal 8.6-10.4 [facility] Comment on above: Performed By: #### Makayla FAST, CP #### [facility] [address] [place] [address] Forensic Sergeant: Leonides Brunner MD #### GLYHGB, LIPR #### [address] [phone] Forensic Sergeant: Virgil Shelton MD Chloride [Moles/Vol] 104 mmol/L Normal 98-107 [facility] Comment on above: Performed By: #### Makayla FAST, CP #### [facility] [address] [place], [place] [phone] Forensic Sergeant: Leonides Brunner MD #### JAIMIEHGB, LIPR #### [address] [address] Forensic Sergeant: Virgil Shelton MD CO2 [Moles/Vol] 23 mmol/L Normal 20-31 [facility] Comment on above: Performed By: #### Makayla FAST, CP #### [facility] [address] [place] [address] Forensic Sergeant: Leonides Brunner MD #### SEAN, LIPR #### [address] [address] Forensic Sergeant: Virgil Shelton MD Creatinine [Mass/Vol] 0.6 mg/dL Normal 0.5-0.9 [facility] Comment on above: Performed By: #### Makayla FAST, CP #### [facility] [address] [place] [address] Forensic Sergeant: Leonides Brunner MD #### GLYHGB, LIPR #### [address] [address] Forensic Sergeant: Virgil Shelton MD GFR/1.73 sq M.predicted among non-blacks MDRD (S/P/Bld) [Vol rate/Area] mL/min/{1.73_m2} Normal >60 [facility] Comment on above: Result Comment: These results [...] Performed By: #### Z FAST, CP #### [facility] [address] [place] [address] Forensic Sergeant: Leonides Brunner MD #### GLYHGB, LIPR #### [address] [place] [address] Forensic Sergeant: Virgil Shelton MD Glucose [Mass/Vol] 145 mg/dL High 70-99 [facility] Comment on above: Performed By: #### Z FAST, CP #### [facility] [address] [place] [address] Forensic Sergeant: Leonides Brunner MD #### GLYHGB, LIPR #### [address] [place] [address] Forensic Sergeant: Virgil Shelton MD Potassium [Moles/Vol] 4.0 mmol/L Normal 3.7-5.3 [facility] Comment on above: Performed By: #### Z FAST, CP #### [facility] [address] [place] [address] Forensic Sergeant: Leonides Brunner MD #### GLYHGB, LIPR #### [facility] [address] [place] [address] Forensic Sergeant: Virgil Shelton MD Protein [Mass/Vol] 6.9 g/dL Normal 6.4-8.3 [facility] Comment on above: Performed By: #### Z FAST, CP #### [facility] [address] [place] [address] Forensic Sergeant: Leonides Brunner MD #### GLYHGB, LIPR #### [facility] [address] [place] [address] Forensic Sergeant: Virgil Shelton MD Sodium [Moles/Vol] 137 mmol/L Normal 135-144 [facility] Comment on above: Performed By: #### Makayla FAST, CP #### [facility] [address] [place] [address] Forensic Sergeant: Leonides Brunner MD #### GLYHGB, LIPR #### [facility] [address] [place] [address] Forensic Sergeant: Virgil Shelton MD Urea nitrogen [Mass/Vol] 15 mg/dL Normal 6-20 [facility] Comment on above: Performed By: #### Makayla FAST, CP #### [facility] [address] [place], [place] [phone] Forensic Sergeant: Leonides Brunner MD #### GLYHGB, LIPR #### [address] [address] Forensic Sergeant: Virgil Shelton MD Hemoglobin A1Con 03-01-2023 Glucose [Mass/Vol] 146 mg/dL Normal [facility] Comment on above: Result Comment: The ADA and AACC recommend providing the estimated average glucose result to permit better patient understanding of their HBA1c result. Performed By: #### Makayla FAST, CP #### [facility] [address] [place], [place] [phone] Forensic Sergeant: Leonides Brunner MD #### GLYHGB, LIPR #### [facility] [address] [place] [address] Forensic Sergeant: Virgil Shelton MD HbA1c (Bld) [Mass fraction] 6.7 % High 4.0-6.0 [facility] Comment on above: Performed By: #### Makayla FAST, CP #### [facility] [address] [place], [place] [phone] Forensic Sergeant: Leonides Brunner MD #### GLYHGB, LIPR #### [facility] [address] [place], [place] [phone] Forensic Sergeant: Virgil Shelton MD Lipid Profileon 03-01-2023 Cholesterol [Mass/Vol] 199 mg/dL Normal <200 [facility] Comment on above: Result Comment: Cholesterol Guidelines: <200 Desirable 200-240 Borderline >240 Undesirable Performed By: #### Makayla FAST, CP #### [facility] [address] [place], [place] [phone] Forensic Sergeant: Leonides Brunner MD #### GLYHGB, LIPR #### [facility] [address] [place] [id number] Forensic Sergeant: Virgil Shelton MD Cholesterol in HDL [Mass/Vol] 47 mg/dL Normal >40 [facility] Comment on above: Result Comment: HDL Guidelines: <40 Undesirable 40-59 Borderline >59 Desirable Performed By: #### Makayla FAST, CP #### [facility] [address] [place], [place] [phone] Forensic Sergeant: Leonides Brunner MD #### JAIMIEHGObi, LIPR #### [facility] [employer] [address] [place] [phone] Forensic Sergeant: Virgil Shelton MD Cholesterol in LDL [Mass/Vol] 100 mg/dL Normal 0-130 [facility] Comment on above: Result Comment: LDL Guidelines: <100 Desirable 100-129 Near to/above Desirable 130-159 Borderline >159 Undesirable Direct (measured) LDL and calculated LDL are not interchangeable tests. Performed By: #### Makayla FAST, CP #### [facility] [address] [place], [place] [phone] Forensic Sergeant: Leonides Brunner MD #### GLYHGB, LIPR #### [facility] [address] [place] [id number] Forensic Sergeant: Virgil Shelton MD Cholesterol.total/Ch olesterol in HDL [Mass ratio] 4.2 {ratio} Normal <5 [facility] Comment on above: Performed By: #### Z FAST, CP #### [facility] [address] [place], [place] [phone] Forensic Sergeant: Leonides Brunner MD #### GLYHGB, LIPR #### [facility] [address] [place] [address] Forensic Sergeant: Virgil Shelton MD Triglyceride [Mass/Vol] 259 mg/dL High <150 [facility] Comment on above: Result Comment: Triglyceride Guidelines: <150 Desirable 150-199 Borderline 200-499 High >499 Very high Based on AHA Guidelines for fasting triglyceride, May 2012. Performed By: #### Makayla FAST, CP #### [facility] [address] [place], [place] [phone] Forensic Sergeant: Leonides Brunner MD #### GLYHGB, LIPR #### [facility] [address] [place] [address] Forensic Sergeant: Virgil Shelton MD Microalb.,Random Uron 2022 Creatinine [Mass/Vol] 134.1 mg/dL Normal 28.0-217.0 [facility] Comment on above: Performed By: #### U RNMAB #### [facility] [employer] [address] [place] [address] Forensic Sergeant: Virgil Shelton MD Microalb/Creat Ratio Can not be calculated Normal <25 [facility] Comment on above: Performed By: #### U RNMAB #### [facility] [address] [place] [address] Forensic Sergeant: Virgil Shelton MD Microalbumin conc. <12 Normal <21 [facility] Comment on above: Performed By: #### U RNMAB #### [facility] [employer] [address] [place] [address] Forensic Sergeant: Virgil Shelton MD Patient fasting?on 3 Patient fasting? yes Normal [facility] Comment on above: Performed By: #### Z FAST, CP #### [facility] [address] [place], [place] [phone] Forensic Sergeant: Leonides Brunner MD #### GLYHGB, LIPR #### [address] [place], [place] [phone] Forensic Sergeant: Virgil Shelton MD Comp Metabolic Profon 2022 Albumin [Mass/Vol] 3.9 g/dL Normal 3.5-5.2 [facility] Comment on above: Performed By: #### Makayla FAST, CP #### [facility] [address] [place], [place] 6[address]3090 Forensic Sergeant: Leonides Brunner MD #### GLYHGB, LIPR, HIVCMB, AHCV #### [address] [phone] Forensic Sergeant: Virgil Shelton MD Alkaline Phos 73 U/L Normal 35-104 [facility] Comment on above: Performed By: #### Makayla FAST, CP #### [facility] [address] [place], [place] [phone] Forensic Sergeant: Leonides Brunner MD #### GLYHGB, LIPR, HIVCMB, AHCV #### [address] [phone] Forensic Sergeant: Virgil Shelton MD ALT [Catalytic activity/Vol] 19 U/L Normal 5-33 [facility] Comment on above: Performed By: #### Z FAST, CP #### [facility] [address] [place], [place] [phone] Forensic Sergeant: Leonides Brunner MD #### GLYHGB, LIPR, HIVCMB, AHCV #### [address] [phone] Forensic Sergeant: Virgil Shelton MD Anion gap [Moles/Vol] 10 mmol/L Normal 9-17 [facility] Comment on above: Performed By: #### Makayla FAST, CP #### [facility] [address] [place], [place] 5036290 Forensic Sergeant: Leonides Brunner MD #### GLYHGB, LIPR, HIVCMB, AHCV #### [address] [phone] Forensic Sergeant: Virgil Shelton MD AST [Catalytic activity/Vol] 12 U/L Normal <32 [facility] Comment on above: Performed By: #### Makayla FAST, CP #### [facility] [address] [place], [place] 455[address] Forensic Sergeant: Leonides Brunner MD #### GLYHGB, LIPR, HIVCMB, AHCV #### [address] [id number] Forensic Sergeant: Virgil Shelton MD Bilirubin [Mass/Vol] 0.3 mg/dL Normal 0.3-1.2 [facility] Comment on above: Performed By: #### Makayla FAST, CP #### [facility] [address] [place], [place] 33388[address] Forensic Sergeant: Leonides Brunner MD #### GLYHGB, LIPR, HIVCMB, AHCV #### [address] [phone] Forensic Sergeant: Virgil Shelton MD BUN/CRE Ratio 17 Normal 9-20 [facility] Comment on above: Performed By: #### Makayla FAST, CP #### [facility] [address] [place], [place] [phone] Forensic Sergeant: Leonides Brunner MD #### GLYHGB, LIPR, HIVCMB, AHCV #### [address] [place], [place] [address] Forensic Sergeant: Virgil Shelton MD Calcium [Mass/Vol] 8.6 mg/dL Normal 8.6-10.4 [facility] Comment on above: Performed By: #### Z FAST, CP #### [facility] [address] [place], [place] [phone] Forensic Sergeant: Leonides Brunner MD #### GLYHGB, LIPR, HIVCMB, AHCV #### [facility] [address] [place], [place] [phone] Forensic Sergeant: Virgil Shelton MD Chloride [Moles/Vol] 101 mmol/L Normal 98-107 [facility] Comment on above: Performed By: #### Z FAST, CP #### [facility] [address] [place], [place] [phone] Forensic Sergeant: Leonides Brunner MD #### GLYHGB, LIPR, HIVCMB, AHCV #### [address] [phone] Forensic Sergeant: Virgil Shelton MD CO2 [Moles/Vol] 23 mmol/L Normal 20-31 [facility] Comment on above: Performed By: #### Z FAST, CP #### [facility] [address] [place], [place] [phone] Forensic Sergeant: Leonides Brunner MD #### GLYHGB, LIPR, HIVCMB, AHCV #### [address] [phone] Forensic Sergeant: Virgil Shelton MD Creatinine [Mass/Vol] 0.63 mg/dL Normal 0.50-0.90 [facility] Comment on above: Performed By: #### Z FAST, CP #### [facility] [address] [place], [place] [phone] Forensic Sergeant: Leonides Brunner MD #### GLYHGB, LIPR, HIVCMB, AHCV #### [facility] [employer] [address] [place], [place] [phone] Forensic Sergeant: Virgil Shelton MD GFR/1.73 sq M.predicted among non-blacks MDRD (S/P/Bld) [Vol rate/Area] mL/min/{1.73_m2} Normal >60 [facility] Comment on above: Result Comment: Effective May [...] Performed By: #### Z FAST, CP #### [facility] [address] [place] [address] Forensic Sergeant: Leonides Brunner MD #### GLYHGB, LIPR, HIVCMB, AHCV #### [address] [place] [address] Forensic Sergeant: Virgil Shelton MD Glucose [Mass/Vol] 141 mg/dL High 70-99 [facility] Comment on above: Performed By: #### Z FAST, CP #### [facility] [address] [place] [address] Forensic Sergeant: Leonides Brunner MD #### GLYHGB, LIPR, HIVCMB, AHCV #### [facility] [employer] [facility] [place], [place] [phone] Forensic Sergeant: Virgil Shelton MD Potassium [Moles/Vol] 4.2 mmol/L Normal 3.7-5.3 [facility] Comment on above: Performed By: #### Z FAST, CP #### [facility] [address] [place] [address] Forensic Sergeant: Leonides Brunner MD #### GLYHGB, LIPR, HIVCMB, AHCV #### [address] [place], [place] 7505408 Forensic Sergeant: Virgil Shelton MD Protein [Mass/Vol] 6.6 g/dL Normal 6.4-8.3 [facility] Comment on above: Performed By: #### Z FAST, CP #### [facility] [address] [place] [phone] Forensic Sergeant: Leonides Brunner MD #### GLYHGB, LIPR, HIVCMB, AHCV #### [address] [place] [phone] Forensic Sergeant: Virgil Shelton MD Sodium [Moles/Vol] 134 mmol/L Low 135-144 [facility] Comment on above: Performed By: #### Z FAST, CP #### [facility] [address] [place] [phone] Forensic Sergeant: Leonides Brunner MD #### GLYHGB, LIPR, HIVCMB, AHCV #### [place] [phone] Forensic Sergeant: Virgil Shelton MD Urea nitrogen [Mass/Vol] 11 mg/dL Normal 6-20 [facility] Comment on above: Performed By: #### Z FAST, CP #### [facility] [address] [place] [phone] Forensic Sergeant: Leonides Brunner MD #### GLYHGB, LIPR, HIVCMB, AHCV #### [address] [place] [address] Forensic Sergeant: Virgil Shelton MD Comprehensive Metabolic Pane nadia 08-22-2022 Albumin [Mass/Vol] 3.9 g/dL 3.5 - 5.2 g/dL [facility] ALP (Bld) [Catalytic activity/Vol] 73 U/L 35 - 104 U/L [facility] ALT [Catalytic activity/Vol] 19 U/L 5 - 33 U/L [facility] Anion gap [Moles/Vol] 10 mmol/L 9 - 17 mmol/L [facility] AST [Catalytic activity/Vol] 12 U/L NINF - 32 U/L [facility] Bilirubin [Mass/Vol] 0.3 mg/dL 0.3 - 1 .2 mg/dL [facility] Calcium [Mass/Vol] 8.6 mg/dL 8.6 - 10. 4 mg/dL [facility] Chloride [Moles/Vol] 101 mmol/L 98 - 10 7 mmol/L [facility] CO2 [Moles/Vol] 23 mmol/L 20 - 31 mmol/L [facility] Creatinine [Mass/Vol] 0.63 mg/dL 0.50 - 0.90 mg/dL [facility] GFR/1.73 sq M.predicted MDRD (S/P/Bld) [Vol rate/Area] - PINF [facility] Comment on above: Effective May 21, 2022 [...] 141 mg/dL High 70 - 99 mg/dL [facility] Interpretation and review of laboratory results Abnormal [facility] Potassium [Moles/Vol] 4.2 mmol/L 3.7 - 5.3 mmol/L [facility] Protein [Mass/Vol] 6.6 g/dL 6.4 - 8.3 g/dL [facility] Sodium [Moles/Vol] 134 mmol/L Low 135 - 144 mmol/L [facility] Urea nitrogen (BldV) [Mass/Vol] 11 mg/dL 6 - 20 mg/dL [facility] Urea nitrogen/Creatinine (Bld) [Mass ratio] 17 9 - 20 [facility] HIV Ag/Abon 08-22-2022 HIV Ag/Ab Non-Reactive Normal NR [facility] Comment on above: Result Comment: No l aboratory evidence of HIV infection. If acute HIV infection is suspected, consider testing for HIV-1 RNA. Performed By: #### Makayla FAST, CP #### [facility] [address] [place], [place] [phone] Forensic Sergeant: Leonides Brunner MD #### GLYHGB, LIPR #### [facility] [employer] [address] [place] [address] Forensic Sergeant: Virgil Shelton MD HIV Screenon 08-22-2022 HIV Ag/Ab Non-Reactive NONREACTIVE [facility] Comment on above: No laboratory eviden ce of HIV infection. If acute HIV infection is suspected, consider testing for HIV-1 RNA. [facility] Hemoglobin A1Con 08-22-2022 Glucose [Mass/Vol] 140 mg/dL Normal [facility] Comment on above: Result Comment: The ADA and AACC recommend providing the estimated average glucose result to permit better patient understanding of their HBA1c result. Performed By: #### Makayla FAST, CP #### [facility] [address] [place] [address] Forensic Sergeant: Leonides Brunner MD #### GLYHGB, LIPR #### [facility] [employer] [address] [place] [address] Forensic Sergeant: Virgil Shelton MD HbA1c (Bld) [Mass fraction] 6.5 % High 4.0-6.0 [facility] Comment on above: Performed By: #### Makayla FAST, CP #### [facility] [address] [place] [address] Forensic Sergeant: Leonides Brunner MD #### GLYHGB, LIPR #### [facility] [employer] [address] [place], [place] [phone] Forensic Sergeant: Virgil Shelton MD Glucose [Mass/Vol] 140 mg/dL [facility] Comment on above: The ADA and AACC rec ommend providing the estimated average glucose result to permit better patient understanding of their HBA1c result. HbA1c (Bld) [Mass fraction] 6.5 % High 4.0 - 6.0 % [facility] Interpretation and review of laboratory results Abnormal [facility] Hep C Abon 08-22-2022 Hep C Ab Non-Reactive Normal NR [facility] Comment on above: Result Comment: The hepatitis [...] Performed By: #### Z FAST, CP #### [facility] [address] [place] [address] Forensic Sergeant: Leonides Brunner MD #### GLYHGB, LIPR, HIVCMB, AHCV #### [facility] [address] [place] [address] Forensic Sergeant: Virgil Shelton MD Hepatitis C Antibodyon 08-22 Hepatitis C Ab Non-Reactive NONREACTIVE [facility] Comment on above: The hepatitis C procedure [...] recommended by ordering HCV RNA by PCR. [facility] Lipid Panelon 08-22-2022 Cholesterol [Mass/Vol] 209 mg/dL High NINF - 200 mg/dL [facility] Comment on above: Cholesterol Guidelines: <200 Desirable 200-240 Borderline >240 Undesirable Cholesterol in HDL [Mass/Vol] 49 mg/dL 40 - PINF mg/dL [facility] Comment on above: HDL Guidelines: <40 Undesirable 40-59 Borderline >59 Desirable Cholesterol in LDL [Mass/Vol] 105 mg/dL 0 - 130 mg/dL [facility] Comment on above: LDL Guidelines: <100 Desirable 100-129 Near to/above Desirable 130-159 Borderline >159 Undesirable Direct (measured) LDL and calculated LDL are not interchangeable tests. Cholesterol.total/Ch olesterol in HDL [Mass ratio] 4.3 {ratio} NINF - 5 [facility] Interpretation and review of laboratory results Abnormal [facility] Triglyceride [Mass/Vol] 275 mg/dL High NINF - 150 mg/dL [facility] Comment on above: Triglyceride Guidelines: <150 Desirable 150-199 Borderline 200-499 High >499 Very high Based on AHA Guidelines for fasting triglyceride, May 2012. [facility] Lipid Profileon 08-22-2022 Cholesterol [Mass/Vol] 209 mg/dL High <200 [facility] Comment on above: Result Comment: Cholesterol Guidelines: <200 Desirable 200-240 Borderline >240 Undesirable Performed By: #### Makayla FAST, CP #### [facility] [address] [id number] Forensic Sergeant: Leonides Brunner MD #### GLYHGB, LIPR, HIVCMB, AHCV #### [facility] [employer] [address] [place] [address] Forensic Sergeant: Virgil Shelton MD Cholesterol in HDL [Mass/Vol] 49 mg/dL Normal >40 [facility] Comment on above: Result Comment: HDL Guidelines: <40 Undesirable 40-59 Borderline >59 Desirable Performed By: #### Z FAST, CP #### [facility] [address] [id number] Forensic Sergeant: Leonides Brunner MD #### GLYHGB, LIPR, HIVCMB, AHCV #### [facility] [employer] [address] [place] [address] Forensic Sergeant: Virgil Shelton MD Cholesterol in LDL [Mass/Vol] 105 mg/dL Normal 0-130 [facility] Comment on above: Result Comment: LDL Guidelines: <100 Desirable 100-129 Near to/above Desirable 130-159 Borderline >159 Undesirable Direct (measured) LDL and calculated LDL are not interchangeable tests. Performed By: #### Z FAST, CP #### [facility] [address] [place], [place] [id number] Forensic Sergeant: Leonides Brunner MD #### GLYHGB, LIPR, HIVCMB, AHCV #### [facility] [employer] [address] [place], [place] [phone] Forensic Sergeant: Virgil Shelton MD Cholesterol.total/Ch olesterol in HDL [Mass ratio] 4.3 {ratio} Normal <5 [facility] Comment on above: Performed By: #### Makayla FAST, CP #### [facility] [address] [place], [place] [id number] Forensic Sergeant: Leonides Brunner MD #### GLYHGB, LIPR, HIVCMB, AHCV #### [facility] [employer] [address] [place], [place] [phone] Forensic Sergeant: Virgil Shelton MD Triglyceride [Mass/Vol] 275 mg/dL High <150 [facility] Comment on above: Result Comment: Triglyceride Guidelines: <150 Desirable 150-199 Borderline 200-499 High >499 Very high Based on AHA Guidelines for fasting triglyceride, May 2012. Performed By: #### Makayla FAST, CP #### [facility] [address] [place], [place] [phone] Forensic Sergeant: Leonides Brunner MD #### GLYHGB, LIPR, HIVCMB, AHCV #### [facility] [employer] [address] [place], [place] [phone] Forensic Sergeant: Virgil Shelton MD Patient Fasting?on 3 Patient Fasting? YES [facility] Patient fasting?on 3 Patient fasting? YES Normal [facility] Comment on above: Performed By: #### Z FAST, CP #### [facility] [address] [place] [address] Forensic Sergeant: Leonides Brunner MD #### GLYHGB, LIPR, HIVCMB, AHCV #### [facility] [address] [place] [address] Forensic Sergeant: Virgil Shelton MD APTTon 04-14-2022 aPTT Coag (Bld) [Time] 28.2 s [facility] Comment on above: IV Heparin Therapy Range: 62.0-94.0 CBC with Auto Differentialon 04-14-2022 Absolute Eos # 0.00 [facility] Absolute Lymph # 0.80 Low [facility] Absolute [place] # 0.70 [facility] Basophils (Bld) [#/Vol] 0.00 10*3/uL [facility] Basophils/100 WBC (Bld) 0 % 0 - 2 % [facility] Differential Type YES [facility] Eosinophils/100 WBC (Bld) 0 % 0 - 5 % [facility] Hematocrit (Bld) [Volume fraction] 41.3 % 36 - 46 % [facility] Hemoglobin (Bld) [Mass/Vol] 14.1 g/dL 12 - 16 g/dL [facility] Interpretation and review of laboratory results Abnormal [facility] Lymphocytes/100 WBC (Bld) 7 % Low 15 - 40 % [facility] MCH (RBC) [Entitic mass] 28.4 pg 26 - 34 pg [facility] MCHC (RBC) [Mass/Vol] 34.1 g/dL 31 - 37 g/dL [facility] MCV (RBC) [Entitic vol] 83.5 fL 80 - 100 fL [facility] Monocytes/100 WBC (Bld) 6 % 4 - 8 % [facility] Platelet distribution width (Bld) [Ratio] 13.4 % 12.1 - 15.2 % [facility] Platelets (Bld) [#/Vol] 276 10*3/uL [facility] RBC (Bld) [#/Vol] 4.95 10*6/uL 4 - 5.2 m/uL [facility] Segmented neutrophils/100 WBC (Bld) 87 % High 47 - 75 % [facility] Segs Absolute 10.60 High [facility] WBC (Bld) [#/Vol] 12.1 10*3/uL High [facility] COVID-19, Rapidon 04-14-2022 Interpretation and review of laboratory results Abnormal [facility] SARS-CoV-2 (COVID-19) RNA PINEDA+probe Ql (Unsp spec) Detected Abnormal Not Detected [facility] Comment on above: Rapid NAAT: The specimen [...] this assay. Fact sheet for Healthcare Providers: https://www.fda.gov/media/827129/download Fact sheet for Patients: https://www.fda.gov/media/308551/download Methodology: Isothermal Nucleic Acid Amplification Results reported to the appropriate Health Department Specimen Description .NASOPHARYNGEAL SWAB [facility] Comprehensive Metabolic Pane nadia 04-14-2022 Albumin [Mass/Vol] 4.2 g/dL 3.5 - 5.2 g/dL [facility] ALP (Bld) [Catalytic activity/Vol] 90 U/L 35 - 104 U/L [facility] ALT [Catalytic activity/Vol] 21 U/L 5 - 33 U/L [facility] Anion gap [Moles/Vol] 14 mmol/L 9 - 17 mmol/L [facility] AST [Catalytic activity/Vol] 14 U/L NINF - 32 U/L [facility] Bilirubin [Mass/Vol] 0.29 mg/dL Low 0.3 - 1 .2 mg/dL [facility] Calcium [Mass/Vol] 9.2 mg/dL 8.6 - 10. 4 mg/dL [facility] Chloride [Moles/Vol] 102 mmol/L 98 - 10 7 mmol/L [facility] CO2 [Moles/Vol] 21 mmol/L 20 - 31 mmol/L [facility] Creatinine [Mass/Vol] 0.77 mg/dL 0.5 - 0.9 mg/dL [facility] Free PSA/Total PSA [Mass fraction] 7.2 g/dL 6.4 - 8.3 g/dL [facility] GFR >60 60 - PI NF mL/min [facility] GFR Non- >60 60 - PINF mL/min [facility] GFR/1.73 sq M.predicted MDRD (S/P/Bld) [Vol rate/Area] [facility] Comment on above: Average GFR for 30-3 9 years old: 107 mL/min/1.73sq m Chronic Kidney Disease: <60 mL/min/1.73sq m Kidney failure: <15 mL/min/1.73sq m eGFR calculated using average adult body mass. Additional eGFR calculator available at: http://www.Regenesance/multiple_crcl_2012.htm Glucose [Mass/Vol] 181 mg/dL High 70 - 99 mg/dL [facility] Interpretation and review of laboratory results Abnormal [facility] Potassium [Moles/Vol] 3.8 mmol/L 3.7 - 5.3 mmol/L [facility] Sodium [Moles/Vol] 137 mmol/L 135 - 144 mmol/L [facility] Urea nitrogen (BldV) [Mass/Vol] 9 mg/dL 6 - 20 mg/dL [facility] Urea nitrogen/Creatinine (Bld) [Mass ratio] 12 9 - 20 [facility] No Panel Informationon 04-14 [facility] Protime-INRon 04-14-2022 INR Coag (Bld) [Relative time] 1.0 {INR} [facility] Comment on above: Non-therapeutic Range: INR = 0.9-1.2 Therapeutic Range: Moderate Anticoagulant Intensity: INR = 2.0-3.0 High Anticoagulant Intensity: INR = 2.5-3.5 PT Coag (PPP) [Time] 13 s [facility] Troponinon 04-14-2022 Troponin, High Sensitivity ng/L 0 - 14 ng/L [facility] [employer] Comment on above: High Sensitivity Troponin values cannot be compared with other Troponin methodologies. Patients with high levels of Biotin oral intake (i.e >5mg/day) may have falsely decreased Troponin levels. Samples collected within 8 hours of biotin intake may require additional information for diagnosis. [facility] [employer] XR CHEST PORTABLEon 04-14-20 SARS-CoV-2 (COVID-19) Ab [...] acute change. IMPRESSION: Negative AP portable chest. [facility] [employer] Work Phone: Radiology Study observation (narrative) [facility] [employer] Work Phone: XR CHEST PORTABLEOrdered By: Mary Kay Macdonald on 04-14-2022 [facility] [employer] Work Phone: COVID-19, Rapidon 03-15-2022 SARS-CoV-2 (COVID-19) RNA PINEDA+probe Ql (Unsp spec) Not detected Not Detected [facility] [employer] Comment on above: Rapid NAAT: The specimen [...] management decisions. Fact sheet for Healthcare Providers: https://www.fda.gov/media/412655/download Fact sheet for Patients: https://www.fda.gov/media/636602/download Methodology: Isothermal Nucleic Acid Amplification Specimen Description .NASOPHARYNGEAL SWAB [facility] Comprehensive Metabolic Pane nadia 01-20-2022 Albumin [Mass/Vol] 4.3 g/dL 3.5 - 5.2 g/dL [facility] ALP (Bld) [Catalytic activity/Vol] 90 U/L 35 - 104 U/L [facility] ALT [Catalytic activity/Vol] 32 U/L 5 - 33 U/L [facility] Anion gap [Moles/Vol] 13 mmol/L 9 - 17 mmol/L [facility] AST [Catalytic activity/Vol] 20 U/L <32 [facility] Bilirubin [Mass/Vol] 0.31 mg/dL 0.30 - 1.20 mg/dL [facility] Calcium [Mass/Vol] 9.3 mg/dL 8.6 - 10. 4 mg/dL [facility] Chloride [Moles/Vol] 100 mmol/L 98 - 10 7 mmol/L [facility] CO2 [Moles/Vol] 22 mmol/L 20 - 31 mmol/L [facility] Creatinine [Mass/Vol] 0.69 mg/dL 0.50 - 0.90 mg/dL [facility] Free PSA/Total PSA [Mass fraction] 7.0 g/dL 6.4 - 8.3 g/dL [facility] GFR >60 >60 mL/min [facility] GFR Non- >60 >60 mL/min [facility] [employer] GFR/1.73 sq M.predicted MDRD (S/P/Bld) [Vol rate/Area] [facility] Comment on above: Average GFR for 30-3 9 years old: 107 mL/min/1.73sq m Chronic Kidney Disease: <60 mL/min/1.73sq m Kidney failure: <15 mL/min/1.73sq m eGFR calculated using average adult body mass. Additional eGFR calculator available at: http://www.Regenesance/multiple_crcl_2012.htm Glucose [Mass/Vol] 165 mg/dL High 70 - 99 mg/dL [facility] Interpretation and review of laboratory results Abnormal [facility] [employer] Potassium [Moles/Vol] 4.2 mmol/L 3.7 - 5.3 mmol/L [facility] Sodium [Moles/Vol] 135 mmol/L 135 - 144 mmol/L [facility] Urea nitrogen (BldV) [Mass/Vol] 14 mg/dL 6 - 20 mg/dL [facility] Urea nitrogen/Creatinine (Bld) [Mass ratio] 20 [facility] Lipid Panelon 01-20-2022 Cholesterol [Mass/Vol] 224 mg/dL High <200 [facility] Comment on above: Cholesterol Guidelines: <200 Desirable 200-240 Borderline >240 Undesirable Cholesterol in HDL [Mass/Vol] 51 mg/dL >40 [facility] Comment on above: HDL Guidelines: <40 Undesirable 40-59 Borderline >59 Desirable Cholesterol in LDL [Mass/Vol] 114 mg/dL 0 - 130 mg/dL [facility] Comment on above: LDL Guidelines: <100 Desirable 100-129 Near to/above Desirable 130-159 Borderline >159 Undesirable Direct (measured) LDL and calculated LDL are not interchangeable tests. Cholesterol.total/Ch olesterol in HDL [Mass ratio] 4.4 {ratio} <5 [facility] Interpretation and review of laboratory results Abnormal [facility] Triglyceride [Mass/Vol] 294 mg/dL High <150 [facility] Comment on above: Triglyceride Guidelines: <150 Desirable 150-199 Borderline 200-499 High >499 Very high Based on AHA Guidelines for fasting triglyceride, May 2012. [facility] Microalbumin, Uron 2 Albumin/Creatinine DL <= 20 mg/L (24H U) [Mass ratio] <12 <21 mg/L [facility] Albumin/Creatinine DL <= 20 mg/L (U) [Ratio] Can not be calculated <25 mcg/mg creat [facility] Creatinine [Mass/Vol] 129.3 mg/dL 28.0 - 217.0 mg/dL [facility] Patient Fasting?on 2 Patient Fasting? YES [facility] CBC with Auto Differentialon 01-01-2022 Absolute Eos # 0.30 [facility] th Absolute Lymph # 3.20 [facility] Absolute [place] # 0.70 [facility] Basophils (Bld) [#/Vol] 0.00 10*3/uL [facility] Basophils/100 WBC (Bld) 0 % 0 - 2 % [facility] [employer] Differential Type YES [facility] Eosinophils/100 WBC (Bld) 3 % 0 - 5 % [facility] Hematocrit (Bld) [Volume fraction] 43.7 % 36 - 46 % [facility] Hemoglobin.gastroint estinal spec 1 Ql (Stl) 14.7 g/dL 12.0 - 16.0 g/dL [facility] Interpretation and review of laboratory results Abnormal [facility] Lymphocytes/100 WBC (Bld) 25 % 15 - 40 % [facility] MCH (RBC) [Entitic mass] 28.0 pg 26 - 34 pg [facility] MCHC (RBC) [Mass/Vol] 33.6 g/dL 31 - 37 g/dL [facility] MCV (RBC) [Entitic vol] 83.2 fL 80 - 100 fL [facility] Monocytes/100 WBC (Bld) 6 % 4 - 8 % [facility] [employer] Platelet distribution width (Bld) [Ratio] 13.8 % 12.1 - 15.2 % [facility] [employer] Platelets (Bld) [#/Vol] 316 10*3/uL [facility] [employer] RBC (Bld) [#/Vol] 5.25 10*6/uL High 4.0 - 5.2 m/uL [facility] Segmented neutrophils/100 WBC (Bld) 66 % 47 - 75 % [facility] Segs Absolute 8.30 [facility] h WBC (Bld) [#/Vol] 12.6 10*3/uL [facility] CT ABDOMEN PELVIS W IV CONTR AST Additional Contrast? Noneon 01-01-2022 Hysterectomy. Normal appendix. [facility] RIS CONSOLIDATED EXAMINATION: CT ABDOMEN PELVIS [...] spleen, pancreas, gallbladder. Liver normal. No hernia. [facility] CONSOLIDATED Osman Harrington Jr., MD - 01/01/2022 [...] normal. No hernia. IMPRESSION: Hysterectomy. Normal appendix. [employer] Phone: Radiology Study observation (narrative) [employer] Phone: CT ABDOMEN PELVIS W IV CONTR AST Additional Contrast? NoneOrdered By: Osman Harrington on 01-01-2022 [employer] Phone: Comprehensive Metabolic Pane l w/ Reflex to MGon 01-01-2022 Albumin [Mass/Vol] 4.5 g/dL 3.5 - 5.2 g/dL [facility] ALP (Bld) [Catalytic activity/Vol] 93 U/L 35 - 104 U/L [facility] ALT [Catalytic activity/Vol] 25 U/L 5 - 33 U/L [facility] Anion gap [Moles/Vol] 15 mmol/L 9 - 17 mmol/L [facility] AST [Catalytic activity/Vol] 18 U/L <32 [facility] Bilirubin [Mass/Vol] 0.29 mg/dL Low 0.30 - 1.20 mg/dL [facility] Calcium [Mass/Vol] 9.6 mg/dL 8.6 - 10. 4 mg/dL [facility] Chloride [Moles/Vol] 98 mmol/L 98 - 10 7 mmol/L [facility] CO2 [Moles/Vol] 24 mmol/L 20 - 31 mmol/L [facility] Creatinine [Mass/Vol] 0.88 mg/dL 0.50 - 0.90 mg/dL [facility] Free PSA/Total PSA [Mass fraction] 7.6 g/dL 6.4 - 8.3 g/dL [facility] GFR >60 >60 mL/min [facility] GFR Non- >60 >60 mL/min [facility] GFR/1.73 sq M.predicted MDRD (S/P/Bld) [Vol rate/Area] [facility] Comment on above: Average GFR for 30-3 9 years old: 107 mL/min/1.73sq m Chronic Kidney Disease: <60 mL/min/1.73sq m Kidney failure: <15 mL/min/1.73sq m eGFR calculated using average adult body mass. Additional eGFR calculator available at: http://www.[employer]/multiple_crcl_2012.htm Glucose [Mass/Vol] 157 mg/dL High 70 - 99 mg/dL [facility] Interpretation and review of laboratory results Abnormal [facility] Potassium [Moles/Vol] 4.1 mmol/L 3.7 - 5.3 mmol/L [facility] Sodium [Moles/Vol] 137 mmol/L 135 - 144 mmol/L [facility] Urea nitrogen (BldV) [Mass/Vol] 11 mg/dL 6 - 20 mg/dL [facility] Urea nitrogen/Creatinine (Bld) [Mass ratio] 13 [facility] Urinalysison 01-01-2022 Bilirubin Urine Negative NEGATIVE [facility] Color, UA Yellow Yellow [facility] Glucose, Ur 1000 mg/dL Abnormal NEGATIVE [facility] Interpretation and review of laboratory results Abnormal [facility] Ketones Ql (U) Negative NEGATIVE [facility] Leukocyte esterase Test strip Ql (U) Negative NEGATIVE [facility] Nitrite, Urine Negative NEGATIVE [facility] pH, UA 6.0 [facility] Protein, UA Negative NEGATIVE [facility] Specific Foster, UA 1.020 [facility] Turbidity UA Clear Clear [facility] Urinalysis Comments [facility] Urine Hgb Negative NEGATIVE [facility] Urobilinogen, Urine Normal Normal [facility] Comprehensive Metabolic Pane nadia 07-24-2021 Albumin [Mass/Vol] 3.9 g/dL 3.5 - 5.2 g/dL [facility] Albumin/Globulin Ratio NOT REPORTED [facility] ALP (Bld) [Catalytic activity/Vol] 91 U/L 35 - 104 U/L [facility] ALT [Catalytic activity/Vol] 23 U/L 5 - 33 U/L [facility] Anion gap [Moles/Vol] 13 mmol/L 9 - 17 mmol/L [facility] AST [Catalytic activity/Vol] 16 U/L <32 [facility] Bilirubin [Mass/Vol] 0.23 mg/dL Low 0.30 - 1.20 mg/dL [facility] Calcium [Mass/Vol] 9.0 mg/dL 8.6 - 10. 4 mg/dL [facility] Chloride [Moles/Vol] 103 mmol/L 98 - 10 7 mmol/L [facility] CO2 [Moles/Vol] 22 mmol/L 20 - 31 mmol/L [facility] Creatinine [Mass/Vol] 0.65 mg/dL 0.50 - 0.90 mg/dL [facility] Free PSA/Total PSA [Mass fraction] 6.7 g/dL 6.4 - 8.3 g/dL [facility] GFR >60 >60 mL/min [facility] GFR Non- >60 >60 mL/min [facility] GFR/1.73 sq M.predicted MDRD (S/P/Bld) [Vol rate/Area] [facility] Comment on above: Average GFR for 30-3 9 years old: 107 mL/min/1.73sq m Chronic Kidney Disease: <60 mL/min/1.73sq m Kidney failure: <15 mL/min/1.73sq m eGFR calculated using average adult body mass. Additional eGFR calculator available at: http://www.Regenesance/multiple_crcl_2012.htm GFR/1.73 sq M.predicted MDRD (S/P/Bld) [Vol rate/Area] NOT REPORTED [employer] Glucose [Mass/Vol] 147 mg/dL High 70 - 99 mg/dL [facility] [employer] Interpretation and review of laboratory results Abnormal [employer] Potassium [Moles/Vol] 3.9 mmol/L 3.7 - 5.3 mmol/L [facility] Sodium [Moles/Vol] 138 mmol/L 135 - 144 mmol/L [facility] Urea nitrogen (BldV) [Mass/Vol] 10 mg/dL 6 - 20 mg/dL [employer] Urea nitrogen/Creatinine (Bld) [Mass ratio] 15 [employer] [facility] Lipid Panelon 07-24-2021 Cholesterol [Mass/Vol] 189 mg/dL <200 [facility] Comment on above: Cholesterol Guidelines: <200 Desirable 200-240 Borderline >240 Undesirable Cholesterol in HDL [Mass/Vol] 54 mg/dL >40 [employer] Comment on above: HDL Guidelines: <40 Undesirable 40-59 Borderline >59 Desirable Cholesterol in LDL [Mass/Vol] 102 mg/dL 0 - 130 mg/dL [facility] Comment on above: LDL Guidelines: <100 Desirable 100-129 Near to/above Desirable 130-159 Borderline >159 Undesirable Direct (measured) LDL and calculated LDL are not interchangeable tests. Cholesterol in VLDL [Mass/Vol] NOT REPORTED High 1 - 30 mg/dL [employer] Cholesterol.total/Ch olesterol in HDL [Mass ratio] 3.5 {ratio} <5 [facility] Interpretation and review of laboratory results Abnormal [employer] Triglyceride [Mass/Vol] 164 mg/dL High <150 [facility] Comment on above: Triglyceride Guidelines: <150 Desirable 150-199 Borderline 200-499 High >499 Very high Based on AHA Guidelines for fasting triglyceride, May 2012. [employer] Patient Fasting?on 1 Patient Fasting? yes [facility] alth [facility] TSH with Reflexon 07-24-2021 TSH Qn 3.66 m[IU]/L [facility] VL DUP LOWER EXTREMITY VENOU S LEFTOrdered By: Keo Amaya on 05-08-2021 Radiology exam is complete. No Radiologist dictation. Please follow up with ordering provider. [facility] Work Phone: [facility] Work Phone: Absolute lymphocyte counton 04-27-2021 Lymphocytes Auto (Unsp spec) [#/Vol] 1.24 10*3/uL 0.90-4.00 [facility] Work Phone: Basophil percentageon 2020 Basophils/100 WBC (Unsp spec) 0.0 % [facility] Work Phone: Blood hemoglobin measurement (mass/volume)on 04-27-2021 Hemoglobin (Bld) [Mass/Vol] 13.0 g/dL 12.0-16.0 [facility] Work Phone: Body fluid alanine aminotran sferase measurement (enzymatic activity/volume)on 04-27-2021 ALT (Body fld) [Catalytic activity/Vol] 46 U/L 14-65 [facility] Work Phone: CBC With Auto Diff.on 2020 Basophils (Bld) [#/Vol] 0.00 10*3/uL Normal 0.00-0.30 [facility] Comment on above: Order Comment: Criti elan Result called to and read back by MERON BEE RN of er on 04/23/2021 1:04 PM by Maru El. Performed By: #### I [id number] #### [facility] (DEFAULT) [address] [place] [place] [address] Basophils/100 WBC (Bld) 0.0 % Normal [facility] Comment on above: Order Comment: Criti elan Result called to and read back by MERON BEE RN of er on 04/23/2021 1:04 PM by Maru El. Performed By: #### I [id number] #### [facility] (DEFAULT) [address], [place] [address] Eosinophils (Bld) [#/Vol] 0.00 10*3/uL Normal 0.00-0.50 [facility] Comment on above: Order Comment: Criti elan Result called to and read back by MERON BEE RN of er on 04/23/2021 1:04 PM by Maru El. Performed By: #### I [id number] #### [facility] (DEFAULT) [address] [place] [address] Eosinophils/100 WBC (Bld) 0.0 % Normal [facility] Comment on above: Order Comment: Criti elan Result called to and read back by MERON BEE RN of er on 04/23/2021 1:04 PM by Maru El. Performed By: #### I [id number] #### [facility] (DEFAULT) [address] [place] [address] Erythrocyte distribution width (RBC) [Ratio] 12.9 % Normal 11.6-14.8 [facility] Comment on above: Order Comment: Criti elan Result called to and read back by MERON BEE RN of er on 04/23/2021 1:04 PM by Maru El. Performed By: #### I [id number] #### [facility] (DEFAULT) [address] [place] [phone] Hematocrit (Bld) [Volume fraction] 37.9 % Normal 36.0-46.0 [facility] Comment on above: Order Comment: Criti elan Result called to and read back by MERON BEE RN of er on 04/23/2021 1:04 PM by Maru El. Performed By: #### I [id number] #### [facility] (DEFAULT) [address] [place] [address] Hemoglobin (Bld) [Mass/Vol] 13.0 g/dL Normal 12.0-16.0 [facility] Comment on above: Order Comment: Criti elan Result called to and read back by MERON BEE RN of er on 04/23/2021 1:04 PM by Maru El. Performed By: #### I [id number] #### [facility] (DEFAULT) [address] [place], [place] [address] Ig% 0.5 % Normal 0.0-4.0 [facility] Comment on above: Order Comment: Criti elan Result called to and read back by MERON BEE RN of er on 04/23/2021 1:04 PM by Maru El. Performed By: #### I [id number] #### [facility] (DEFAULT) [address] [place] [id number] Lymphocytes (Bld) [#/Vol] 1.24 10*3/uL Normal 0.90-4.00 [facility] Comment on above: Order Comment: Criti elan Result called to and read back by MERON BEE RN of er on 04/23/2021 1:04 PM by Maru El. Performed By: #### I [id number] #### [facility] (DEFAULT) [address] [place] [phone] Lymphocytes/100 WBC (Bld) 21.5 % Normal [facility] Comment on above: Order Comment: Criti elan Result called to and read back by MERON BEE RN of er on 04/23/2021 1:04 PM by Maru El. Performed By: #### I [id number] #### [facility] (DEFAULT) [address] [place] [address] 91414 MCH (RBC) [Entitic mass] 28.7 pg Normal 26.0-34.0 [facility] Comment on above: Order Comment: Criti elan Result called to and read back by MERON BEE RN of er on 04/23/2021 1:04 PM by Maru El. Performed By: #### I [id number] #### [facility] (DEFAULT) [address] [place] [address] 25035 MCHC (RBC) [Mass/Vol] 34.3 g/dL Normal 31.0-37.0 [facility] Comment on above: Order Comment: Criti elan Result called to and read back by MERON BEE RN of er on 04/23/2021 1:04 PM by Maru El. Performed By: #### I [id number] #### [facility] (DEFAULT) [address] [place] [address] 91521 MCV (RBC) [Entitic vol] 84 fL Normal 80-100 [facility] Comment on above: Order Comment: Criti elan Result called to and read back by MERON BEE RN of er on 04/23/2021 1:04 PM by Maru El. Performed By: #### I [id number] #### [facility] (DEFAULT) [address] [place] [address] 48838 Monocytes (Bld) [#/Vol] 0.70 10*3/uL Normal 0.30-0.90 [facility] Comment on above: Order Comment: Criti elan Result called to and read back by MERON BEE RN of er on 04/23/2021 1:04 PM by Maru El. Performed By: #### I [id number] #### [facility] (DEFAULT) [address] [place] [address] 35953 Monocytes/100 WBC (Bld) 12.2 % Normal [facility] Comment on above: Order Comment: Criti elan Result called to and read back by MERON BEE RN of er on 04/23/2021 1:04 PM by Maru El. Performed By: #### I [id number] #### [facility] (DEFAULT) [address] [place] [address] 81631 Neutrophils (Bld) [#/Vol] 3.79 10*3/uL Normal 1.70-7.00 [facility] Comment on above: Order Comment: Criti elan Result called to and read back by MERON BEE RN of er on 04/23/2021 1:04 PM by Maru El. Performed By: #### I [id number] #### [facility] (DEFAULT) [address] [place] [address] 99799 Neutrophils/100 WBC (Bld) 65.8 % Normal [facility] Comment on above: Order Comment: Criti elan Result called to and read back by MERON BEE RN of er on 04/23/2021 1:04 PM by aMru El. Performed By: #### I [id number] #### [facility] (DEFAULT) [address] [place] [address] 65976 Platelet mean volume (Bld) [Entitic vol] 9.1 fL Normal 9.0-15.5 [facility] Comment on above: Order Comment: Criti elan Result called to and read back by MERON BEE RN of er on 04/23/2021 1:04 PM by Maru El. Performed By: #### I [id number] #### [facility] (DEFAULT) [address] [place] [address] 60762 Platelets (Bld) [#/Vol] 337 10*3/uL Normal 150-400 [facility] Comment on above: Order Comment: Criti elan Result called to and read back by MERON BEE RN of er on 04/23/2021 1:04 PM by Maru El. Performed By: #### I [id number] #### [facility] (DEFAULT) [address] [place] [address] 79270 RBC (Bld) [#/Vol] 4.53 10*6/uL Normal 4.00-5.20 [facility] Comment on above: Order Comment: Criti elan Result called to and read back by MERON BEE RN of er on 04/23/2021 1:04 PM by Maru El. Performed By: #### I [id number] #### [facility] (DEFAULT) [address] [place] [address] 33011 WBC (Bld) [#/Vol] 5.76 10*3/uL Normal 4.50-11.00 [facility] Comment on above: Order Comment: Criti elan Result called to and read back by MERON BEE RN of er on 04/23/2021 1:04 PM by Maru El. Performed By: #### I [id number] #### [facility] (DEFAULT) [address] [place] [address] 09717 Calcium measurement (mass/vo lume)on 04-27-2021 Calcium (Unsp spec) [Mass/Vol] 8.4 mg/dL 8.0-10.2 [facility] Work Phone: Comprehensive Metabolic Pane nadia 04-27-2021 Albumin [Mass/Vol] 2.8 g/dL Low 3.2-4.5 [facility] Comment on above: Performed By: #### C OAGS #### [facility] (DEFAULT) [address] [place] [address] ALP [Catalytic activity/Vol] 81 U/L Normal 40-140 [facility] Comment on above: Performed By: #### C OAGS #### [facility] (DEFAULT) [address] [place] [address] 80862 ALT [Catalytic activity/Vol] 46 U/L Normal 14-65 [facility] Comment on above: Performed By: #### C OAGS #### [facility] (DEFAULT) [address] [place] [address] 94524 Anion gap [Moles/Vol] 19 mmol/L Normal 10-20 [facility] Comment on above: Performed By: #### C OAGS #### [facility] (DEFAULT) [address] [place] [address] 76967 AST [Catalytic activity/Vol] 12 U/L Normal 0-45 [facility] Comment on above: Performed By: #### C OAGS #### [facility] (DEFAULT) [address] [place] [address] 88431 Bilirubin [Mass/Vol] 0.4 mg/dL Normal 0.0-1.3 [facility] Comment on above: Performed By: #### C OAGS #### [facility] (DEFAULT) [address] [place] [address] 47584 Calcium [Mass/Vol] 8.4 mg/dL Normal 8.0-10.2 [facility] Comment on above: Performed By: #### C OAGS #### [facility] (DEFAULT) [address] [place] [address] 52140 Chloride [Moles/Vol] 104 mmol/L Normal 98-108 [facility] Comment on above: Performed By: #### C OAGS #### [facility] (DEFAULT) [address], [place] [address] CO2 [Moles/Vol] 18.0 mmol/L Low 21.0-32.0 [facility] Comment on above: Performed By: #### C OAGS #### [facility] (DEFAULT) [address] [place] [address] 86510 Creatinine [Mass/Vol] 0.6 mg/dL Normal 0.4-1.1 [facility] Comment on above: Performed By: #### C OAGS #### [facility] (DEFAULT) [address] [place] [address] 51867 GFR/1.73 sq M.predicted MDRD (S/P/Bld) [Vol rate/Area] 109 mL/min/{1.73_m2} Normal 60-1000 [facility] Comment on above: Result Comment: The eGFR should be used for monitoring renal function only and not for medication dosing. Performed By: #### C OAGS #### [facility] (DEFAULT) [address] [place] [address] 42904 Glucose [Mass/Vol] 164 mg/dL High 65-99 [facility] Comment on above: Performed By: #### C OAGS #### [facility] (DEFAULT) [address] [place] [address] 63665 Potassium [Moles/Vol] 3.8 mmol/L Normal 3.5-5.1 [facility] Comment on above: Performed By: #### C OAGS #### [facility] (DEFAULT) [address] [place] [address] 79241 Protein [Mass/Vol] 6.9 g/dL Normal 6.0-8.0 [facility] Comment on above: Performed By: #### C OAGS #### [facility] (DEFAULT) [address] [place] [address] 14686 Sodium [Moles/Vol] 137 mmol/L Normal 135-145 [facility] Comment on above: Performed By: #### C OAGS #### [facility] (DEFAULT) [address] [place], [place] [address] Urea nitrogen [Mass/Vol] 19 mg/dL Normal 8-25 [facility] Comment on above: Performed By: #### C OAGS #### [facility] (DEFAULT) [address] [place], [place] [address] Erythrocyte distribution wid th ratioon 04-27-2021 Erythrocyte distribution width (RBC) [Ratio] 12.9 % 11.6-14.8 [facility] Work Phone: Erythrocyte mean corpuscular hemoglobin concentration measurement (mass/volume)on 04-27-2021 MCHC (RBC) [Mass/Vol] 34.3 g/dL 31.0-37.0 [facility] Work Phone: HBV + HCV screenon MCH (RBC) [Entitic mass] 28.7 pg 26.0-34.0 [facility] Work Phone: MCV (RBC) [Entitic vol] 84 fL 80-100 [facility] Work Phone: Laboratory - Chemistry and C hemistry - challengeon 04-27-2021 ALP [Catalytic activity/Vol] 81 U/L 40-140 [facility] Work Phone: Anion gap [Moles/Vol] 19 mmol/L 10-20 [facility] Work Phone: CO2 [Moles/Vol] 18.0 mmol/L 21.0-32.0 [facility] Work Phone: GFR/1.73 sq M.predicted among non-blacks MDRD (S/P/Bld) [Vol rate/Area] 109 mL/min/{1.73_m2} 60-1000 [facility] Work Phone: Comment on above: Result Units: mL/min /1.03e9Pxp eGFR should be used for monitoring renal function only and not for medication dosing. Laboratory - Hematology and Cell countson 04-27-2021 Basophils (Bld) [#/Vol] 0.00 10*3/uL 0.00-0.30 [facility] Work Phone: Hematocrit (Bld) [Volume fraction] 37.9 % 36.0-46.0 [facility] Work Phone: Immature granulocytes/100 WBC (Bld) 0.5 % 0.0-4.0 [facility] Work Phone: Neutrophils/100 WBC (Bld) 65.8 % [facility] Work Phone: RBC (Bld) [#/Vol] 4.53 10*6/uL 4.00-5.20 [facility] Work Phone: Neutrophils Auto (Bld) [#/Vo l]on 04-27-2021 Neutrophils (Bld) [#/Vol] 3.79 10*3/uL 1.70-7.00 [facility] Work Phone: PCM.DCPLANon 04-27-2021 PCM.VTPLAN [facility] Patient: DELILAH MANCUSO DISCHARGE PLAN/ORDERS Admit Date: 04/23/21 /Age: 09 1980 Attending Physician: Júnior Valadez MD Med Rec #: [id number] - Problem Patient Problems: Current Active Problems [...] notify your physician Authenticated on: 04/27/21 [id number] CC: Normal [facility] Platelet mean volume Auto (B ld) [Entitic vol]on 04-27-2021 Platelet mean volume (Bld) [Entitic vol] 9.1 fL 9.0-15.5 [facility] Work Phone: Platelets Auto (Bld) [#/Vol] on 09-09-2021 Platelets (Bld) [#/Vol] 337 10*3/uL 150-400 [facility] Work Phone: Serum or plasma albumin marce urement (mass/volume)on 04-27-2021 Albumin [Mass/Vol] 2.8 g/dL 3.2-4.5 [facility] Work Phone: Serum or plasma urea nitroge n measurement (mass/volume)on 04-27-2021 Urea nitrogen [Mass/Vol] 19 mg/dL 8-25 [facility] Work Phone: Trichomonas screenon 021 AST [Catalytic activity/Vol] 12 U/L 0-45 [facility] Work Phone: Bilirubin [Mass/Vol] 0.4 mg/dL 0.0-1.3 [facility] Work Phone: Chloride [Moles/Vol] 104 mmol/L 98-108 [facility] Work Phone: Creatinine [Mass/Vol] 0.6 mg/dL 0.4-1.1 [facility] Work Phone: Eosinophils (Bld) [#/Vol] 0.00 10*3/uL 0.00-0.50 [facility] Work Phone: Eosinophils/100 WBC (Bld) 0.0 % [facility] Work Phone: Glucose [Mass/Vol] 164 mg/dL 65-99 [facility] Work Phone: Lymphocytes/100 WBC (Bld) 21.5 % [facility] Work Phone: Monocytes (Bld) [#/Vol] 0.70 10*3/uL 0.30-0.90 [facility] Work Phone: Monocytes/100 WBC (Bld) 12.2 % [facility] Work Phone: Potassium [Moles/Vol] 3.8 mmol/L 3.5-5.1 [facility] Work Phone: Protein [Mass/Vol] 6.9 g/dL 6.0-8.0 [facility] Work Phone: Sodium [Moles/Vol] 137 mmol/L 135-145 [facility] Work Phone: WBC (Bld) [#/Vol] 5.76 10*3/uL 4.50-11.00 [facility] Work Phone: Basophils Manual cnt (Bld) [ #/Vol]on 04-26-2021 Basophils/100 WBC (Bld) 0 % [facility] Work Phone: CBC With Auto Diff.on 2020 Erythrocyte distribution width (RBC) [Ratio] 13.1 % Normal 11.6-14.8 [facility] Comment on above: Order Comment: Regul atory Requirements State: Only Absolute Cell Counts are reported with their reference ranges. Performed By: #### C OAGS #### [facility] (DEFAULT) [address] [place] [address] 02140 Hematocrit (Bld) [Volume fraction] 36.9 % Normal 36.0-46.0 [facility] Comment on above: Order Comment: Regul atory Requirements State: Only Absolute Cell Counts are reported with their reference ranges. Performed By: #### C OAGS #### [facility] (DEFAULT) [address] [place] [address] 50110 Hemoglobin (Bld) [Mass/Vol] 12.7 g/dL Normal 12.0-16.0 [facility] Comment on above: Order Comment: Regul atory Requirements State: Only Absolute Cell Counts are reported with their reference ranges. Performed By: #### C OAGS #### [facility] (DEFAULT) [address] [place] [address] 70351 Ig% 0.4 % Normal 0.0-4.0 [facility] Comment on above: Order Comment: Regul atory Requirements State: Only Absolute Cell Counts are reported with their reference ranges. Performed By: #### C OAGS #### [facility] (DEFAULT) [address] [place] [address] 29468 MCH (RBC) [Entitic mass] 29.1 pg Normal 26.0-34.0 [facility] Comment on above: Order Comment: Regul atory Requirements State: Only Absolute Cell Counts are reported with their reference ranges. Performed By: #### C OAGS #### [facility] (DEFAULT) [address] [place] [address] 64115 MCHC (RBC) [Mass/Vol] 34.4 g/dL Normal 31.0-37.0 [facility] Comment on above: Order Comment: Regul atory Requirements State: Only Absolute Cell Counts are reported with their reference ranges. Performed By: #### C OAGS #### [facility] (DEFAULT) [address] [place] [address] 14859 MCV (RBC) [Entitic vol] 85 fL Normal 80-100 [facility] Comment on above: Order Comment: Regul atory Requirements State: Only Absolute Cell Counts are reported with their reference ranges. Performed By: #### C OAGS #### [facility] (DEFAULT) [address] [place] [address] 42674 Platelet mean volume (Bld) [Entitic vol] 9.4 fL Normal 9.0-15.5 [facility] Comment on above: Order Comment: Regul atory Requirements State: Only Absolute Cell Counts are reported with their reference ranges. Performed By: #### C OAGS #### [facility] (DEFAULT) [address] [place] [address] 37196 Platelets (Bld) [#/Vol] 313 10*3/uL Normal 150-400 [facility] Comment on above: Order Comment: Regul atory Requirements State: Only Absolute Cell Counts are reported with their reference ranges. Performed By: #### C OAGS #### [facility] (DEFAULT) [address] [place] [address] 89179 RBC (Bld) [#/Vol] 4.36 10*6/uL Normal 4.00-5.20 [facility] Comment on above: Order Comment: Regul atory Requirements State: Only Absolute Cell Counts are reported with their reference ranges. Performed By: #### C OAGS #### [facility] (DEFAULT) [address], [place] [address] WBC (Bld) [#/Vol] 5.29 10*3/uL Normal 4.50-11.00 [facility] Comment on above: Order Comment: Regul atory Requirements State: Only Absolute Cell Counts are reported with their reference ranges. Performed By: #### C OAGS #### [facility] (DEFAULT) [address] [place] [address] 93113 Comprehensive Metabolic Pane nadia 04-26-2021 Albumin [Mass/Vol] 2.8 g/dL Low 3.2-4.5 [facility] Comment on above: Performed By: #### C MP #### [facility] (DEFAULT) [address] [place] [address] 93527 ALP [Catalytic activity/Vol] 88 U/L Normal 40-140 [facility] Comment on above: Performed By: #### C MP #### [facility] (DEFAULT) [address] [place] [address] 06047 ALT [Catalytic activity/Vol] 49 U/L Normal 14-65 [facility] Comment on above: Performed By: #### C MP #### [facility] (DEFAULT) [address] [place] [address] 26727 Anion gap [Moles/Vol] 19 mmol/L Normal 10-20 [facility] Comment on above: Performed By: #### C MP #### [facility] (DEFAULT) [address] [place] [address] 49472 AST [Catalytic activity/Vol] 14 U/L Normal 0-45 [facility] Comment on above: Performed By: #### C MP #### [facility] (DEFAULT) [address] [place] [address] 88567 Bilirubin [Mass/Vol] 0.4 mg/dL Normal 0.0-1.3 [facility] Comment on above: Performed By: #### C MP #### [facility] (DEFAULT) [address] [place] [address] 83945 Calcium [Mass/Vol] 8.6 mg/dL Normal 8.0-10.2 [facility] Comment on above: Performed By: #### C MP #### [facility] (DEFAULT) [address] [place], [place] [address] Chloride [Moles/Vol] 105 mmol/L Normal 98-108 [facility] Comment on above: Performed By: #### C MP #### [facility] (DEFAULT) [address] [place] [address] 61417 CO2 [Moles/Vol] 16.0 mmol/L Low 21.0-32.0 [facility] Comment on above: Performed By: #### C MP #### [facility] (DEFAULT) [address] [place] [address] 90031 Creatinine [Mass/Vol] 0.6 mg/dL Normal 0.4-1.1 [facility] Comment on above: Performed By: #### C MP #### [facility] (DEFAULT) [address] [place] [address] 98486 GFR/1.73 sq M.predicted MDRD (S/P/Bld) [Vol rate/Area] 118 mL/min/{1.73_m2} Normal 60-1000 [facility] Comment on above: Result Comment: The eGFR should be used for monitoring renal function only and not for medication dosing. Performed By: #### C MP #### [facility] (DEFAULT) [address] [place] [address] 30733 Glucose [Mass/Vol] 168 mg/dL High 65-99 [facility] Comment on above: Performed By: #### C MP #### [facility] (DEFAULT) [address], [place] [address] Potassium [Moles/Vol] 3.9 mmol/L Normal 3.5-5.1 [facility] Comment on above: Performed By: #### C MP #### [facility] (DEFAULT) [address], [place] [address] Protein [Mass/Vol] 6.8 g/dL Normal 6.0-8.0 [facility] Comment on above: Performed By: #### C MP #### [facility] (DEFAULT) [address], [place] [address] Sodium [Moles/Vol] 136 mmol/L Normal 135-145 [facility] Comment on above: Performed By: #### C MP #### [facility] (DEFAULT) [address], [place] [address] Urea nitrogen [Mass/Vol] 19 mg/dL Normal 8-25 [facility] Comment on above: Performed By: #### C MP #### [facility] (DEFAULT) [address], [place] [address] Eosinophils Manual cnt (Bld) [#/Vol]on 04-26-2021 Eosinophils/100 WBC (Bld) 0 % [facility] Work Phone: HBV + HCV screenon Monocytes/100 WBC (Bld) 7 % [facility] Work Phone: Lymphocytes Manual cnt (Bld) [#/Vol]on 04-26-2021 Lymphocytes/100 WBC (Bld) 27 % [facility] Work Phone: Manual Differential.on 04-26 Baso 0 % Normal [facility] Comment on above: Order Comment: Two a typical lymphocytes seen in slide. Performed By: #### M DIFF1 #### [facility] (DEFAULT) [address], [place] [address] BASO# 0.00 X10E3/UL Normal 0.00-0.15 [facility] Comment on above: Order Comment: Two a typical lymphocytes seen in slide. Performed By: #### M DIFF1 #### [facility] (DEFAULT) [address], [place] [address] Blasts 0 % Normal 0-0 [facility] Comment on above: Order Comment: Two a typical lymphocytes seen in slide. Performed By: #### M DIFF1 #### [facility] (DEFAULT) [address] [place] [address] 94060 Blasts# 0.00 Normal 0.00-0.00 [facility] Comment on above: Order Comment: Two a typical lymphocytes seen in slide. Performed By: #### M DIFF1 #### [facility] (DEFAULT) [address] [address] EOS 0 % Normal [facility] Comment on above: Order Comment: Two a typical lymphocytes seen in slide. Performed By: #### M DIFF1 #### [facility] (DEFAULT) [address] [place] [address] EOS# 0.00 X10E3/UL Normal 0.00-0.70 [facility] Comment on above: Order Comment: Two a typical lymphocytes seen in slide. Performed By: #### M DIFF1 #### [facility] (DEFAULT) [address] [place] [address] LYM# 1.43 X10E3/UL Normal 1.10-4.40 [facility] Comment on above: Order Comment: Two a typical lymphocytes seen in slide. Performed By: #### M DIFF1 #### [facility] (DEFAULT) [address] [place] [address] Lymphocytes 27 % Normal [facility] Comment on above: Order Comment: Two a typical lymphocytes seen in slide. Performed By: #### M DIFF1 #### [facility] (DEFAULT) [address] [place] [address] [place]# 0.00 X10E3/UL Low 1.50-7.50 [facility] Comment on above: Order Comment: Two a typical lymphocytes seen in slide. Performed By: #### M DIFF1 #### [facility] (DEFAULT) [address] [place] [address] Metamyelocytes 0 % Normal 0-0 [facility] Comment on above: Order Comment: Two a typical lymphocytes seen in slide. Performed By: #### M DIFF1 #### [facility] (DEFAULT) [address] [place] [address] MONO# 0.37 X10E3/UL Normal 0.20-0.95 [facility] Comment on above: Order Comment: Two a typical lymphocytes seen in slide. Performed By: #### M DIFF1 #### [facility] (DEFAULT) [address] [place] [address] 10651 Monocytes 7 % Normal [facility] Comment on above: Order Comment: Two a typical lymphocytes seen in slide. Performed By: #### M DIFF1 #### [facility] (DEFAULT) [address] [place] [address] 71140 MYELO 0.00 % Normal 0.00-0.00 [facility] Comment on above: Order Comment: Two a typical lymphocytes seen in slide. Performed By: #### M DIFF1 #### [facility] (DEFAULT) [address] [place] [address] 14791 NEUT# 3.49 X10E3/UL Normal 1.50-7.50 [facility] Comment on above: Order Comment: Two a typical lymphocytes seen in slide. Performed By: #### M DIFF1 #### [facility] (DEFAULT) [address] [place] [address] 00899 Neutrophils 66 % Normal [facility] Comment on above: Order Comment: Two a typical lymphocytes seen in slide. Performed By: #### M DIFF1 #### [facility] (DEFAULT) [address] [place] [address] 93272 NRBC 0 /100wbc Normal [facility] Comment on above: Order Comment: Two a typical lymphocytes seen in slide. Performed By: #### M DIFF1 #### [facility] (DEFAULT) [address] [place] [address] 28630 Manual body fluid myelocytes count (number/volume)on 04-26-2021 Myelocytes Manual cnt (Body fld) [#/Vol] 0.00 % 0.00-0.00 [facility] Work Phone: Metamyelocytes/100 WBC Manua l cnt (Bld)on 04-26-2021 Metamyelocytes/100 WBC (Bld) 0 % 0-0 [facility] Work Phone: Neutrophils Auto (Bld) [#/Vo l]on 04-26-2021 Neutrophils/100 WBC (Bld) 66 % [facility] Work Phone: No Panel Informationon 04-26 Nucleated Red Blood Cells 0 /100wbc [facility] Work Phone: Basic Metabolic panelon Anion gap [Moles/Vol] 19 mmol/L Normal 10-20 [facility] Comment on above: Performed By: #### B MP #### [facility] (DEFAULT) [address], [place] [address] Calcium [Mass/Vol] 8.4 mg/dL Normal 8.0-10.2 [facility] Comment on above: Performed By: #### B MP #### [facility] (DEFAULT) [address] [place] [address] 19588 Chloride [Moles/Vol] 107 mmol/L Normal 98-108 [facility] Comment on above: Performed By: #### B MP #### [facility] (DEFAULT) [address] [place] [address] 16853 CO2 [Moles/Vol] 14.0 mmol/L Low 21.0-32.0 [facility] Comment on above: Performed By: #### B MP #### [facility] (DEFAULT) [address] [place] [address] 61889 Creatinine [Mass/Vol] 0.7 mg/dL Normal 0.4-1.1 [facility] Comment on above: Performed By: #### B MP #### [facility] (DEFAULT) [address] [place] [address] 34555 GFR/1.73 sq M.predicted MDRD (S/P/Bld) [Vol rate/Area] 92 mL/min/{1.73_m2} Normal 60-1000 [facility] Comment on above: Result Comment: The eGFR should be used for monitoring renal function only and not for medication dosing. Performed By: #### B MP #### [facility] (DEFAULT) [address], [place] [address] Glucose [Mass/Vol] 158 mg/dL High 65-99 [facility] Comment on above: Performed By: #### B MP #### [facility] (DEFAULT) [address], [place] [address] Potassium [Moles/Vol] 4.1 mmol/L Normal 3.5-5.1 [facility] Comment on above: Performed By: #### B MP #### [facility] (DEFAULT) [address] [place] [address] 81904 Sodium [Moles/Vol] 136 mmol/L Normal 135-145 [facility] Comment on above: Performed By: #### B MP #### [facility] (DEFAULT) [address] [place] [address] 78743 Urea nitrogen [Mass/Vol] 20 mg/dL Normal 8-25 [facility] Comment on above: Performed By: #### B MP #### [facility] (DEFAULT) [address] [place] [address] 88082 CBC With Auto Diff.on 2020 Erythrocyte distribution width (RBC) [Ratio] 13.8 % Normal 11.6-14.8 [facility] Comment on above: Order Comment: Criti elan Result called to and read back by MERON BEE RN of er on 04/23/2021 1:04 PM by Maru El. Performed By: #### I [id number] #### [facility] (DEFAULT) [address] [place] [address]100 Hematocrit (Bld) [Volume fraction] 41.0 % Normal 36.0-46.0 [facility] Comment on above: Order Comment: Criti elan Result called to and read back by MERON BEE RN of er on 04/23/2021 1:04 PM by Maru El. Performed By: #### I [id number] #### [facility] (DEFAULT) [address] [place] [address] 73620 Hemoglobin (Bld) [Mass/Vol] 13.6 g/dL Normal 12.0-16.0 [facility] Comment on above: Order Comment: Criti elan Result called to and read back by MERON BEE RN of er on 04/23/2021 1:04 PM by Maru El. Performed By: #### I [id number] #### [facility] (DEFAULT) [address] [place] [address] 66039 Ig% 0.2 % Normal 0.0-4.0 [facility] Comment on above: Order Comment: Criti elan Result called to and read back by MERON BEE RN of er on 04/23/2021 1:04 PM by Maru El. Performed By: #### I [id number] #### [facility] (DEFAULT) [address] [place] [address] 66719 MCH (RBC) [Entitic mass] 28.7 pg Normal 26.0-34.0 [facility] Comment on above: Order Comment: Criti elan Result called to and read back by MERON BEE RN of er on 04/23/2021 1:04 PM by Maru El. Performed By: #### I [id number] #### [facility] (DEFAULT) [address] [place] [address] 85123 MCHC (RBC) [Mass/Vol] 33.2 g/dL Normal 31.0-37.0 [facility] Comment on above: Order Comment: Criti elan Result called to and read back by MERON BEE RN of er on 04/23/2021 1:04 PM by Maru El. Performed By: #### I [id number] #### [facility] (DEFAULT) [address] [place] [address] 79744 MCV (RBC) [Entitic vol] 87 fL Normal 80-100 [facility] Comment on above: Order Comment: Criti elan Result called to and read back by MERON BEE RN of er on 04/23/2021 1:04 PM by Maru El. Performed By: #### I [id number] #### [facility] (DEFAULT) [address] [place] [address] 54483 Platelet mean volume (Bld) [Entitic vol] 9.9 fL Normal 9.0-15.5 [facility] Comment on above: Order Comment: Criti elan Result called to and read back by MERON BEE RN of er on 04/23/2021 1:04 PM by Maru El. Performed By: #### I [id number] #### [facility] (DEFAULT) [address] [place] [address] 18632 Platelets (Bld) [#/Vol] 255 10*3/uL Normal 150-400 [facility] Comment on above: Order Comment: Criti elan Result called to and read back by MERON BEE RN of er on 04/23/2021 1:04 PM by Maru El. Performed By: #### I [id number] #### [facility] (DEFAULT) [address] [place] [address] 75180 RBC (Bld) [#/Vol] 4.74 10*6/uL Normal 4.00-5.20 [facility] Comment on above: Order Comment: Criti elan Result called to and read back by MERON BEE RN of er on 04/23/2021 1:04 PM by Maru El. Performed By: #### I [id number] #### [facility] (DEFAULT) [address] [place] [address] 95336 WBC (Bld) [#/Vol] 4.80 10*3/uL Normal 4.50-11.00 [facility] Comment on above: Order Comment: Criti elan Result called to and read back by MERON BEE RN of er on 04/23/2021 1:04 PM by Maru El. Performed By: #### I [id number] #### [facility] (DEFAULT) [address] [place] [address] 97405 Manual Differential.on 04-25 Baso 0 % Normal [facility] Comment on above: Order Comment: Three atypical lymphocytes seen in smear. Performed By: #### M DIFF1 #### [facility] (DEFAULT) [address] [place] [address] 92081 BASO# 0.00 X10E3/UL Normal 0.00-0.15 [facility] Comment on above: Order Comment: Three atypical lymphocytes seen in smear. Performed By: #### M DIFF1 #### [facility] (DEFAULT) [address] [place] [address] 03015 Blasts 0 % Normal 0-0 [facility] Comment on above: Order Comment: Three atypical lymphocytes seen in smear. Performed By: #### M DIFF1 #### [facility] (DEFAULT) [address] [place] [address] 51511 Blasts# 0.00 Normal 0.00-0.00 [facility] Comment on above: Order Comment: Three atypical lymphocytes seen in smear. Performed By: #### M DIFF1 #### [facility] (DEFAULT) [address] [place] [address] EOS 0 % Normal [facility] Comment on above: Order Comment: Three atypical lymphocytes seen in smear. Performed By: #### M DIFF1 #### [facility] (DEFAULT) [address] [place] [address] 57390 EOS# 0.00 X10E3/UL Normal 0.00-0.70 [facility] Comment on above: Order Comment: Three atypical lymphocytes seen in smear. Performed By: #### M DIFF1 #### [facility] (DEFAULT) [address] [place] [address] 13608 LYM# 1.01 X10E3/UL Low 1.10-4.40 [facility] Comment on above: Order Comment: Three atypical lymphocytes seen in smear. Performed By: #### M DIFF1 #### [facility] (DEFAULT) [address] [place] [address] 26513 Lymphocytes 21 % Normal [facility] Comment on above: Order Comment: Three atypical lymphocytes seen in smear. Performed By: #### M DIFF1 #### [facility] (DEFAULT) [address] [place] [address] [place]# 0.00 X10E3/UL Low 1.50-7.50 [facility] Comment on above: Order Comment: Three atypical lymphocytes seen in smear. Performed By: #### M DIFF1 #### [facility] (DEFAULT) [address], [place] [address] Metamyelocytes 0 % Normal 0-0 [facility] Comment on above: Order Comment: Three atypical lymphocytes seen in smear. Performed By: #### M DIFF1 #### [facility] (DEFAULT) [address], [place] [address] MONO# 0.38 X10E3/UL Normal 0.20-0.95 [facility] Comment on above: Order Comment: Three atypical lymphocytes seen in smear. Performed By: #### M DIFF1 #### [facility] (DEFAULT) [address] [place] [address] 69500 Monocytes 8 % Normal [facility] Comment on above: Order Comment: Three atypical lymphocytes seen in smear. Performed By: #### M DIFF1 #### [facility] (DEFAULT) [address] [place] [address] 41510 MYELO 0.00 % Normal 0.00-0.00 [facility] Comment on above: Order Comment: Three atypical lymphocytes seen in smear. Performed By: #### M DIFF1 #### [facility] (DEFAULT) [address] [place] [address] 44551 NEUT# 3.41 X10E3/UL Normal 1.50-7.50 [facility] Comment on above: Order Comment: Three atypical lymphocytes seen in smear. Performed By: #### M DIFF1 #### [facility] (DEFAULT) [address] [place] [address] 23026 Neutrophils 71 % Normal [facility] Comment on above: Order Comment: Three atypical lymphocytes seen in smear. Performed By: #### M DIFF1 #### [facility] (DEFAULT) [address] [place] [address] 33176 NRBC 0 /100wbc Normal [facility] Comment on above: Order Comment: Three atypical lymphocytes seen in smear. Performed By: #### M DIFF1 #### [facility] (DEFAULT) [address] [place] [address] 94518 Basic Metabolic panelon 09-0 Anion gap [Moles/Vol] 20 mmol/L Normal 10-20 [facility] Comment on above: Performed By: #### B MP #### [facility] (DEFAULT) [address] [place] [address] 20990 Calcium [Mass/Vol] 8.4 mg/dL Normal 8.0-10.2 [facility] Comment on above: Performed By: #### B MP #### [facility] (DEFAULT) [address] [place] [address] 56371 Chloride [Moles/Vol] 107 mmol/L Normal 98-108 [facility] Comment on above: Performed By: #### B MP #### [facility] (DEFAULT) [address] [place] [address] 86774 CO2 [Moles/Vol] 15.0 mmol/L Low 21.0-32.0 [facility] Comment on above: Performed By: #### B MP #### [facility] (DEFAULT) [address] [place] [address] 62140 Creatinine [Mass/Vol] 0.6 mg/dL Normal 0.4-1.1 [facility] Comment on above: Performed By: #### B MP #### [facility] (DEFAULT) [address] [place] [address] 63600 GFR/1.73 sq M.predicted MDRD (S/P/Bld) [Vol rate/Area] 113 mL/min/{1.73_m2} Normal 60-1000 [facility] Comment on above: Result Comment: The eGFR should be used for monitoring renal function only and not for medication dosing. Performed By: #### B MP #### [facility] (DEFAULT) [address] [place] [address] 66820 Glucose [Mass/Vol] 122 mg/dL High 65-99 [facility] Comment on above: Performed By: #### B MP #### [facility] (DEFAULT) [address] [place] [address] 71951 Potassium [Moles/Vol] 4.3 mmol/L Normal 3.5-5.1 [facility] Comment on above: Performed By: #### B MP #### [facility] (DEFAULT) [address], [place] [address] Sodium [Moles/Vol] 138 mmol/L Normal 135-145 [facility] Comment on above: Performed By: #### B MP #### [facility] (DEFAULT) [address], [place] [address] Urea nitrogen [Mass/Vol] 17 mg/dL Normal 8-25 [facility] Comment on above: Performed By: #### B MP #### [facility] (DEFAULT) [address], [place] [address] CBC With Auto Diff.on 2020 Erythrocyte distribution width (RBC) [Ratio] 13.7 % Normal 11.6-14.8 [facility] Comment on above: Order Comment: Regul atory Requirements State: Only Absolute Cell Counts are reported with their reference ranges. Performed By: #### C OAGS #### [facility] (DEFAULT) [address] [place] [address] 29127 Hematocrit (Bld) [Volume fraction] 37.9 % Normal 36.0-46.0 [facility] Comment on above: Order Comment: Regul atory Requirements State: Only Absolute Cell Counts are reported with their reference ranges. Performed By: #### C OAGS #### [facility] (DEFAULT) [address] [place] [address] 74617 Hemoglobin (Bld) [Mass/Vol] 12.6 g/dL Normal 12.0-16.0 [facility] Comment on above: Order Comment: Regul atory Requirements State: Only Absolute Cell Counts are reported with their reference ranges. Performed By: #### C OAGS #### [facility] (DEFAULT) [address] [place] [address] 22669 Ig% 0.5 % Normal 0.0-4.0 [facility] Comment on above: Order Comment: Regul atory Requirements State: Only Absolute Cell Counts are reported with their reference ranges. Performed By: #### C OAGS #### [facility] (DEFAULT) [address], [place] [address] MCH (RBC) [Entitic mass] 28.8 pg Normal 26.0-34.0 [facility] Comment on above: Order Comment: Regul atory Requirements State: Only Absolute Cell Counts are reported with their reference ranges. Performed By: #### C OAGS #### [facility] (DEFAULT) [address] [place] [address] 16299 MCHC (RBC) [Mass/Vol] 33.2 g/dL Normal 31.0-37.0 [facility] Comment on above: Order Comment: Regul atory Requirements State: Only Absolute Cell Counts are reported with their reference ranges. Performed By: #### C OAGS #### [facility] (DEFAULT) [address] [place] [address] 56814 MCV (RBC) [Entitic vol] 87 fL Normal 80-100 [facility] Comment on above: Order Comment: Regul atory Requirements State: Only Absolute Cell Counts are reported with their reference ranges. Performed By: #### C OAGS #### [facility] (DEFAULT) [address] [place] [address] 73128 Platelet mean volume (Bld) [Entitic vol] 9.8 fL Normal 9.0-15.5 [facility] Comment on above: Order Comment: Regul atory Requirements State: Only Absolute Cell Counts are reported with their reference ranges. Performed By: #### C OAGS #### [facility] (DEFAULT) [address] [place] [address] 67638 Platelets (Bld) [#/Vol] 241 10*3/uL Normal 150-400 [facility] Comment on above: Order Comment: Regul atory Requirements State: Only Absolute Cell Counts are reported with their reference ranges. Performed By: #### C OAGS #### [facility] (DEFAULT) [address] [place] [address] 77661 RBC (Bld) [#/Vol] 4.37 10*6/uL Normal 4.00-5.20 [facility] Comment on above: Order Comment: Regul atory Requirements State: Only Absolute Cell Counts are reported with their reference ranges. Performed By: #### C OAGS #### [facility] (DEFAULT) [address], [place] [address] WBC (Bld) [#/Vol] 4.30 10*3/uL Low 4.50-11.00 [facility] Comment on above: Order Comment: Regul atory Requirements State: Only Absolute Cell Counts are reported with their reference ranges. Performed By: #### C OAGS #### [facility] (DEFAULT) [address], [place] [address] D-Dimer Quantitativeon 04-24 D-Dimer Quantitative >5000.0 High 6.0-450.0 [facility] Comment on above: Result Comment: A [...] ng/ml. Performed By: #### C OAGS #### [facility] (DEFAULT) [address], [place] [address] HBV + HCV screenon HBV + HCV screen >5000.0 ng/mL FEU 6.0-450.0 [facility] Work Phone: Comment on above: A [...] Manual Differential.on 04-24 Baso 0 % Normal [facility] Comment on above: Performed By: #### M DIFF1 #### [facility] (DEFAULT) [address] [place] [address] BASO# 0.00 X10E3/UL Normal 0.00-0.15 [facility] Comment on above: Performed By: #### M DIFF1 #### [facility] (DEFAULT) [address] [place] [address] Blasts 0 % Normal 0-0 [facility] Comment on above: Performed By: #### M DIFF1 #### [facility] (DEFAULT) [address] [place] [address] Blasts# 0.00 Normal 0.00-0.00 [facility] Comment on above: Performed By: #### M DIFF1 #### [facility] (DEFAULT) [address] [place] [address] EOS 0 % Normal [facility] Comment on above: Performed By: #### M DIFF1 #### [facility] (DEFAULT) [address] [place] [address] EOS# 0.00 X10E3/UL Normal 0.00-0.70 [facility] Comment on above: Performed By: #### M DIFF1 #### [facility] (DEFAULT) [address] [place] [address] LYM# 0.82 X10E3/UL Low 1.10-4.40 [facility] Comment on above: Performed By: #### M DIFF1 #### [facility] (DEFAULT) [address] [place] [address] Lymphocytes 19 % Normal [facility] Comment on above: Performed By: #### M DIFF1 #### [facility] (DEFAULT) [address] [place] [address] [place]# 0.00 X10E3/UL Low 1.50-7.50 [facility] Comment on above: Performed By: #### M DIFF1 #### [facility] (DEFAULT) [address] [place] [address] Metamyelocytes 0 % Normal 0-0 [facility] Comment on above: Performed By: #### M DIFF1 #### [facility] (DEFAULT) [address], [place] [address] MONO# 0.39 X10E3/UL Normal 0.20-0.95 [facility] Comment on above: Performed By: #### M DIFF1 #### [facility] (DEFAULT) [address], [place] [address] Monocytes 9 % Normal [facility] Comment on above: Performed By: #### M DIFF1 #### [facility] (DEFAULT) [address] [place] [address] MYELO 0.00 % Normal 0.00-0.00 [facility] Comment on above: Performed By: #### M DIFF1 #### [facility] (DEFAULT) [address] [place] [address] NEUT# 3.10 X10E3/UL Normal 1.50-7.50 [facility] Comment on above: Performed By: #### M DIFF1 #### [facility] (DEFAULT) [address] [place] [address] 16130 Neutrophils 72 % Normal [facility] Comment on above: Performed By: #### M DIFF1 #### [facility] (DEFAULT) [address] [place] [address] NRBC 0 /100wbc Normal [facility] Comment on above: Performed By: #### M DIFF1 #### [facility] (DEFAULT) [address] [place] [address]00 Blood INR by coagulation ass ishmael 04-23-2021 INR Coag (Bld) [Relative time] 0.89 {INR} 0.90-1.20 [facility] Work Phone: Comment on above: Therapeutic range of an INR is 2.0 - 3.0.Prosthetic Valves: 2.5-3.5An INR >5.0 is considered critical. Blood activated partial thro mboplastin time (aPTT) by coagulation assayon 04-23-2021 aPTT Coag (Bld) [Time] 26.5 s 21.9-33.8 [facility] Work Phone: Blood prothrombin time (PT) by coagulation assayon 04-23-2021 PT Coag (Bld) [Time] 9.7 s 8.7-11.4 [facility] Work Phone: Bloodcultureon 04-23-2021 Bacteria identified Cx Nom (Bld) Wili al Result called to and read back by Rena toledo RN of [facility] on 04/24/2021 7:42 PM by Anum Yip [...] STAPHYLOCOCCUS HOMINIS A Testi g Performed At: [facility] [address] [place] [address] Staphylococcus hominis Sets Positive [1] of [2] GRAM STAIN RESULT BC: Gram Positive Cocci in clusters A Testi g Performed At: [facility] [address] [place] [address] Sets Positive [1] of [2] [facility] Comment on above: Performed By: #### C OAGS #### [facility] (DEFAULT) [address] [place] [address] Bloodculture Second Seton Bloodculture Second Set Blood [...] After 5 Days Testi g Performed At: [facility] [address] [place] [address] Comment on above: Performed By: #### C OAGS #### [facility] (DEFAULT) [address], [place] [address] CBC With Auto Diff.on 2020 Basophils (Bld) [#/Vol] 0.01 10*3/uL Normal 0.00-0.30 [facility] Comment on above: Order Comment: Regul atory Requirements State: Only Absolute Cell Counts are reported with their reference ranges. Performed By: #### C BC #### [facility] (DEFAULT) [address] [place] [address] 73573 Basophils/100 WBC (Bld) 0.2 % Normal [facility] Comment on above: Order Comment: Regul atory Requirements State: Only Absolute Cell Counts are reported with their reference ranges. Performed By: #### C BC #### [facility] (DEFAULT) [address] [place] [address]60 Eosinophils (Bld) [#/Vol] 0.00 10*3/uL Normal 0.00-0.50 [facility] Comment on above: Order Comment: Regul atory Requirements State: Only Absolute Cell Counts are reported with their reference ranges. Performed By: #### C BC #### [facility] (DEFAULT) [address] [place] [address]329 Eosinophils/100 WBC (Bld) 0.0 % Normal [facility] Comment on above: Order Comment: Regul atory Requirements State: Only Absolute Cell Counts are reported with their reference ranges. Performed By: #### C BC #### [facility] (DEFAULT) [address] [place] [address] Erythrocyte distribution width (RBC) [Ratio] 13.8 % Normal 11.6-14.8 [facility] Comment on above: Order Comment: Regul atory Requirements State: Only Absolute Cell Counts are reported with their reference ranges. Performed By: #### C BC #### [facility] (DEFAULT) [address] [place] [address]66 Hematocrit (Bld) [Volume fraction] 40.5 % Normal 36.0-46.0 [facility] Comment on above: Order Comment: Regul atory Requirements State: Only Absolute Cell Counts are reported with their reference ranges. Performed By: #### C BC #### [facility] (DEFAULT) [address], [place] [address] Hemoglobin (Bld) [Mass/Vol] 13.3 g/dL Normal 12.0-16.0 [facility] Comment on above: Order Comment: Regul atory Requirements State: Only Absolute Cell Counts are reported with their reference ranges. Performed By: #### C BC #### [facility] (DEFAULT) [address] [place] [address]11 Ig% 0.3 % Normal 0.0-4.0 [facility] Comment on above: Order Comment: Regul atory Requirements State: Only Absolute Cell Counts are reported with their reference ranges. Performed By: #### C BC #### [facility] (DEFAULT) [address] [place] [address]774 Lymphocytes (Bld) [#/Vol] 1.20 10*3/uL Normal 0.90-4.00 [facility] Comment on above: Order Comment: Regul atory Requirements State: Only Absolute Cell Counts are reported with their reference ranges. Performed By: #### C BC #### [facility] (DEFAULT) [address] [place] [address]36 Lymphocytes/100 WBC (Bld) 19.5 % Normal [facility] Comment on above: Order Comment: Regul atory Requirements State: Only Absolute Cell Counts are reported with their reference ranges. Performed By: #### C BC #### [facility] (DEFAULT) [address] [place] [address]67 MCH (RBC) [Entitic mass] 28.9 pg Normal 26.0-34.0 [facility] Comment on above: Order Comment: Regul atory Requirements State: Only Absolute Cell Counts are reported with their reference ranges. Performed By: #### C BC #### [facility] [facility] (DEFAULT) [address] [place] [address]13 MCHC (RBC) [Mass/Vol] 32.8 g/dL Normal 31.0-37.0 [facility] Comment on above: Order Comment: Regul atory Requirements State: Only Absolute Cell Counts are reported with their reference ranges. Performed By: #### C BC #### [facility] (DEFAULT) [address] [place] [address] 85156 MCV (RBC) [Entitic vol] 88 fL Normal 80-100 [facility] Comment on above: Order Comment: Regul atory Requirements State: Only Absolute Cell Counts are reported with their reference ranges. Performed By: #### C BC #### [facility] (DEFAULT) [address] [place] [address] 68467 Monocytes (Bld) [#/Vol] 0.28 10*3/uL Low 0.30-0.90 [facility] Comment on above: Order Comment: Regul atory Requirements State: Only Absolute Cell Counts are reported with their reference ranges. Performed By: #### C BC #### [facility] (DEFAULT) [address] [place] [address] 65741 Monocytes/100 WBC (Bld) 4.5 % Normal [facility] Comment on above: Order Comment: Regul atory Requirements State: Only Absolute Cell Counts are reported with their reference ranges. Performed By: #### C BC #### [facility] (DEFAULT) [address] [place] [address] 27986 Neutrophils (Bld) [#/Vol] 4.65 10*3/uL Normal 1.70-7.00 [facility] Comment on above: Order Comment: Regul atory Requirements State: Only Absolute Cell Counts are reported with their reference ranges. Performed By: #### C BC #### [facility] (DEFAULT) [address] [place] [address] 18675 Neutrophils/100 WBC (Bld) 75.5 % Normal [facility] Comment on above: Order Comment: Regul atory Requirements State: Only Absolute Cell Counts are reported with their reference ranges. Performed By: #### C BC #### [facility] (DEFAULT) [address] [place] [address] 75496 Platelet mean volume (Bld) [Entitic vol] 9.5 fL Normal 9.0-15.5 [facility] Comment on above: Order Comment: Regul atory Requirements State: Only Absolute Cell Counts are reported with their reference ranges. Performed By: #### C BC #### [facility] (DEFAULT) [address] [place] [address] 77394 Platelets (Bld) [#/Vol] 202 10*3/uL Normal 150-400 [facility] Comment on above: Order Comment: Regul atory Requirements State: Only Absolute Cell Counts are reported with their reference ranges. Performed By: #### C BC #### [facility] (DEFAULT) [address] [place] [address] 09750 RBC (Bld) [#/Vol] 4.61 10*6/uL Normal 4.00-5.20 [facility] Comment on above: Order Comment: Regul atory Requirements State: Only Absolute Cell Counts are reported with their reference ranges. Performed By: #### C BC #### [facility] (DEFAULT) [address] [place] [address] 18616 WBC (Bld) [#/Vol] 6.16 10*3/uL Normal 4.50-11.00 [facility] Comment on above: Order Comment: Regul atory Requirements State: Only Absolute Cell Counts are reported with their reference ranges. Performed By: #### C BC #### [facility] (DEFAULT) [address] [place] [address] 43576 CHEST SINGLE VIEWon 04-23-20 CHEST SINGLE VIEW [facility] Patient: DELILAH MANCUSO [address] [facility] [place] [address] Admit Date: 04/23/21 /Age: 09 1980 ED Physician: Ramirez Grimaldo MD DIAGNOSTIC RADIOLOGY REQUISITION Attending Physician: Med Rec #: [id number] EXAM: CHEST SINGLE VIEW HISTORY: SOB, check [...] as other etiologies. Authenticated on: 04/23/21 1234 [id number]/RRIA 1234 Job ID# [id number] CC: Ramirez Grimaldo MD Normal [facility] CTA THORAX W POST PROCESSING on 04-23-2021 CTA THORAX W POST PROCESSING [facility] Patient: DELILAH MANCUS[address] [place] [address] Admit Date: 04/23/21 /Age: 09 1980 ED Physician: Ramirez Grimaldo MD DIAGNOSTIC RADIOLOGY REQUISITION Attending Physician: Alonso Rec #: [id number] EXAMINATION: CTA THORAX W POST PROCESSING HISTORY: Covid pneumonia and elevated d-dimer. Evaluate for pulmonary embolism. COMPARISON: None. TECHNIQUE: CT angiography of the chest was performed with IV contrast. MIP (maxmum intensity projection) images or 3D post processing was performed. CT dose reduction technique was used, including Automated Exposure Control. AI TECHNOLOGY: This study was processed using [employer] CT Technology. No prior found. Current Lung [...] lungs compatiblewith viral pneumonia. Authenticated on: 04/23/211402 32280/RRIA 02 02 Job ID# [id number] CC: Ramirez Grimaldo MD Normal [facility] Coagulation Panelon 04-23-20 aPTT Coag (Bld) [Time] 26.5 s Normal 21.9-33.8 [facility] Comment on above: Performed By: #### C OAGS #### [facility] (DEFAULT) [address], [place] [address] INR Coag (PPP) [Relative time] 0.89 {INR} Low 0.90-1.20 [facility] Comment on above: Result Comment: Ther apeutic range of an INR is 2.0 - 3.0. Prosthetic Valves: 2.5-3.5 An INR >5.0 is considered critical. Performed By: #### C OAGS #### [facility] (DEFAULT) [address], [place] [address] PT Coag (PPP) [Time] 9.7 s Normal 8.7-11.4 [facility] Comment on above: Performed By: #### C OAGS #### [facility] (DEFAULT) [address] [place] [address] Comprehensive Metabolic Pane nadia 04-23-2021 Albumin [Mass/Vol] 3.0 g/dL Low 3.2-4.5 [facility] Comment on above: Performed By: #### C OAGS #### [facility] (DEFAULT) [address], [place] [address] ALP [Catalytic activity/Vol] 100 U/L Normal 40-140 [facility] Comment on above: Performed By: #### C OAGS #### [facility] (DEFAULT) [address], [place] [address] ALT [Catalytic activity/Vol] 70 U/L High 14-65 [facility] Comment on above: Performed By: #### C OAGS #### [facility] (DEFAULT) [address], [place] [address] Anion gap [Moles/Vol] 15 mmol/L Normal 10-20 [facility] Comment on above: Performed By: #### C OAGS #### [facility] (DEFAULT) [address] [place] [address] AST [Catalytic activity/Vol] 38 U/L Normal 0-45 [facility] Comment on above: Performed By: #### C OAGS #### [facility] (DEFAULT) [address], [place] [address] Bilirubin [Mass/Vol] 0.3 mg/dL Normal 0.0-1.3 [facility] Comment on above: Performed By: #### C OAGS #### [facility] (DEFAULT) [address] [place] [address]62 Calcium [Mass/Vol] 8.9 mg/dL Normal 8.0-10.2 [facility] Comment on above: Performed By: #### C OAGS #### [facility] (DEFAULT) [address] [place] [address] 11598 Chloride [Moles/Vol] 105 mmol/L Normal 98-108 [facility] Comment on above: Performed By: #### C OAGS #### [facility] (DEFAULT) [address] [place] [address] CO2 [Moles/Vol] 20.0 mmol/L Low 21.0-32.0 [facility] Comment on above: Performed By: #### C OAGS #### [facility] (DEFAULT) [address], [place] [address] Creatinine [Mass/Vol] 0.7 mg/dL Normal 0.4-1.1 [facility] Comment on above: Performed By: #### C OAGS #### [facility] (DEFAULT) [address] [place], [place] [address]on [place], [place] [address] GFR/1.73 sq M.predicted MDRD (S/P/Bld) [Vol rate/Area] 96 mL/min/{1.73_m2} Normal 60-1000 [facility] Comment on above: Result Comment: The eGFR should be used for monitoring renal function only and not for medication dosing. Performed By: #### C OAGS #### [facility] (DEFAULT) [address] [place] [address] 24693 Glucose [Mass/Vol] 177 mg/dL High 65-99 [facility] Comment on above: Performed By: #### C OAGS #### [facility] (DEFAULT) [address] [place] [address] 22375 Potassium [Moles/Vol] 4.2 mmol/L Normal 3.5-5.1 [facility] Comment on above: Performed By: #### C OAGS #### [facility] (DEFAULT) [address] [place] [address]69 Protein [Mass/Vol] 7.5 g/dL Normal 6.0-8.0 [facility] Comment on above: Performed By: #### C OAGS #### [facility] (DEFAULT) [address] [place] [address] 26597 Sodium [Moles/Vol] 136 mmol/L Normal 135-145 [facility] Comment on above: Performed By: #### C OAGS #### [facility] (DEFAULT) [address] [place] [address]956 Urea nitrogen [Mass/Vol] 11 mg/dL Normal 8-25 [facility] Comment on above: Performed By: #### C OAGS #### [facility] (DEFAULT) [address] [place] [address]45 D-Dimer Quantitativeon 04-23 D-Dimer Quantitative 1191.0 ng/mL FEU High 6.0-450.0 [facility] Comment on above: Result Comment: A [...] ng/ml. Performed By: #### C OAGS #### [facility] (DEFAULT) [address] 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 Patient (more content not included)... Normal [facility] ID NOW SARS-CoV-2 RNA Qualit ativeon 04-23-2021 ID NOW COVID19 Detected Normal Not Detected [facility] Comment on above: Order Comment: Criti [...] at the following links: For Healthcare Providers: https//www.fda.gov/media/970762/download For Patients: https//www.fda.gov/media/598799/download Performed By: #### I [id number] #### [facility] (DEFAULT) [address] [place], [place] [address] INITIAL HS TROPONIN Ion 09-0 HS Troponin I 9 ng/L Normal 3-59 [facility] Comment on above: Performed By: #### C OAGS #### [facility] (DEFAULT) [address] [place], [place] [address] Lactic Acid, Plasmaon 2020 Lactic Acid, Plasma 1.2 mmol/L Normal 0.6-2.0 [facility] Comment on above: Performed By: #### L A #### [facility] (DEFAULT) [address] [place], [place] [address] No Panel Informationon 04-23 SARS Source Detected Not Detected [facility] Work Phone: Comment on above: This test [...] found at the following links:For Healthcare Providers: https//www.fda.gov/media/464242/downloadFor Patients: https//www.fda.gov/media/876897/download Troponin I High Sensitivity 9 ng/L 3-59 [facility] Work Phone: Serum or plasma lactate marce urement (moles/volume)on 04-23-2021 Lactate [Moles/Vol] 1.2 mmol/L 0.6-2.0 [facility] Work Phone: Hemoglobin A1Con 08-16-2020 Glucose [Mass/Vol] 183 mg/dL [place], [place] Comment on above: The ADA and AACC rec ommend providing the estimated average glucose result to permit better patient understanding of their HBA1c result. HbA1c (Bld) [Mass fraction] 8.0 % High 4 - 6 % [place] Interpretation and review of laboratory results Abnormal [place] Lipid Panelon 08-16-2020 Cholesterol [Mass/Vol] 196 mg/dL <200 [place] Comment on above: Cholesterol Guidelines: <200 Desirable 200-240 Borderline >240 Undesirable Cholesterol in HDL [Mass/Vol] 51 mg/dL >40 [place] Comment on above: HDL Guidelines: <40 Undesirable 40-59 Borderline >59 Desirable Cholesterol in LDL [Mass/Vol] 82 mg/dL 0 - 130 mg/dL [place] Comment on above: LDL Guidelines: <100 Desirable 100-129 Near to/above Desirable 130-159 Borderline >159 Undesirable Direct (measured) LDL and calculated LDL are not interchangeable tests. Cholesterol in VLDL [Mass/Vol] NOT REPORTED High 1 - 30 mg/dL [place] Cholesterol.total/Ch olesterol in HDL [Mass ratio] 3.8 {ratio} <5 [place] Interpretation and review of laboratory results Abnormal [place] Triglyceride [Mass/Vol] 315 mg/dL High <150 [place] Comment on above: Triglyceride Guidelines: <150 Desirable 150-199 Borderline 200-499 High >499 Very high Based on AHA Guidelines for fasting triglyceride, May 2012. Patient Fasting?on 0 Patient Fasting? yes [place] Comprehensive Metabolic Pane nadia 05-02-2020 Albumin [Mass/Vol] 4.2 g/dL 3.5 - 5.2 g/dL [place], [place] Albumin/Globulin [Mass ratio] NOT REPORTED [place] ALP [Catalytic activity/Vol] 82 U/L 35 - 104 U/L [place] ALT [Catalytic activity/Vol] 55 U/L High 5 - 33 U/L [place] Anion gap [Moles/Vol] 12 mmol/L 9 - 17 mmol/L [place] AST [Catalytic activity/Vol] 26 U/L <32 [place] Bilirubin Ql (U) 0.32 mg/dL 0.3 - 1.2 mg/dL [place] Bun/Cre Ratio 15 [place] Calcium [Mass/Vol] 9.3 mg/dL 8.6 - 10. 4 mg/dL [place] Chloride [Moles/Vol] 101 mmol/L 98 - 10 7 mmol/L [place] CO2 [Moles/Vol] 22 mmol/L 20 - 31 mmol/L [place] Creatinine [Mass/Vol] 0.67 mg/dL 0.5 - 0.9 mg/dL [place] GFR >60 >60 mL/min [place], [place] GFR Non- >60 >60 mL/min [place] GFR/1.73 sq M predicted among non-blacks MDRD (S/P/Bld) [Vol rate/Area] [place] Comment on above: Average GFR for 30-3 9 years old: 107 mL/min/1.73sq m Chronic Kidney Disease: <60 mL/min/1.73sq m Kidney failure: <15 mL/min/1.73sq m eGFR calculated using average adult body mass. Additional eGFR calculator available at: http://www.Regenesance/multiple_crcl_2012.htm GFR/1.73 sq M predicted among non-blacks MDRD (S/P/Bld) [Vol rate/Area] NOT REPORTED [place] Glucose [Mass/Vol] 190 mg/dL High 70 - 99 mg/dL [place], [place] Interpretation and review of laboratory results Abnormal [place] Potassium [Moles/Vol] 4.1 mmol/L 3.7 - 5.3 mmol/L [place] Protein [Mass/Vol] 8.2 g/dL 6.4 - 8.3 g/dL [place] Sodium [Moles/Vol] 135 mmol/L 135 - 144 mmol/L [place] Urea nitrogen [Mass/Vol] 10 mg/dL 6 - 20 mg/dL [place] Lipid Panelon 05-02-2020 Cholesterol [Mass/Vol] 191 mg/dL <200 [place] Comment on above: Cholesterol Guidelines: <200 Desirable 200-240 Borderline >240 Undesirable Cholesterol in HDL [Mass/Vol] 45 mg/dL >40 [place] Comment on above: HDL Guidelines: <40 Undesirable 40-59 Borderline >59 Desirable Cholesterol in LDL [Mass/Vol] 86 mg/dL 0 - 130 mg/dL [place] Comment on above: LDL Guidelines: <100 Desirable 100-129 Near to/above Desirable 130-159 Borderline >159 Undesirable Direct (measured) LDL and calculated LDL are not interchangeable tests. Cholesterol in VLDL [Mass/Vol] NOT REPORTED High 1 - 30 mg/dL [place] Cholesterol.total/Ch olesterol in HDL [Mass ratio] 4.2 {ratio} <5 [place] Interpretation and review of laboratory results Abnormal [place] Triglyceride [Mass/Vol] 301 mg/dL High <150 [place] Comment on above: Triglyceride Guidelines: <150 Desirable 150-199 Borderline 200-499 High >499 Very high Based on AHA Guidelines for fasting triglyceride, May 2012. Microalbumin / Creatinine Ur ine Ratioon 05-02-2020 Albumin/Creatinine DL <= 20 mg/L (24H U) [Mass ratio] <12 <21 mg/L [place] Albumin/Creatinine DL <= 20 mg/L (U) [Ratio] CANNOT BE CALCULATED <25 mcg/mg creat [place] Creatinine, Ur 205.1 mg/dL 28 - 217 mg/dL [place] Patient Fasting?on 0 Patient Fasting? YES [place] Coding Summary.on 01-25-2020 Coding Summary. CODING DATE: 01/25/[address] [facility] STATUS: Home (Routine DC) PAYOR: [facility] [place] ADMIT DX: REASON FOR VISIT DX: Z01.812 [...] Chester CphT Date Saved: 01/25/2020 02:47 pm [facility] Postoperative Documentson Postoperative Documents [id number]#1 .00CD:127 [facility] IntraOperative Documentson 0 01-19-2020 IntraOperative Documents [id number]#1 .00CD:127 [facility] Coding Summary.on 01-18-2020 Coding Summary. CODING DATE: 01/18/[address] [facility] STATUS: Home (Routine DC) PAYOR: [facility] [place] APC DESCRIPTION 5362 Level 2 Laparoscopy and Related Services ADMIT DX: REASON FOR VISIT DX: N80.9 Endometriosis, unspecified FINAL DX: PRINCIPAL: N80.0 Endometriosis of uterus SECONDARY: N87.9 Dysplasia of cervix uteri, unspecified R10.2 Pelvic and perineal pain N81.89 Other female genital prolapse I10 Essential (primary) hypertension E11.9 Type 2 diabetes mellitus without complications Z79.84 prison (current) use of oral hypoglycemic drugs PYMT PROC APC STAT DESCRIPTION DOCTOR NAME DATE 19542 5362 J1 Laparoscopy, surgical, Erika RODRIGUEZ, Alli Dickens 01/15/2020 with total hysterectomy, for uterus 250 g or less; with removal of tube(s) and/or ovary(s) 59357 Anesthesia for Jabier Puentes Jr., DO 01/15/2020 intraperitoneal procedures in lower abdomen including laparoscopy; not otherwise specified NOTE: The code number assigned matches the documented diagnosis and / or procedure in the patient's chart. However, the narrative phrase printed from the coding software may appear abbreviated, or result in slightly different terminology. Revised Coded By: Sandra Salguero Revised Date Saved: 01/18/2020 12:27 pm [facility] Consent for Anesthesiaon Consent for Anesthesia [id number]# 1.00CD:127 [facility] Discharge Instructionson Discharge Instructions [id number]# 1.00CD:127 [facility] IntraOperative Documentson 0 01-18-2020 IntraOperative Documents [id number]# 1.00CD:127 [facility] IntraOperative Documents [id number]# 1.00CD:127 Normal [facility] Main OR Intraoperative Recor don 01-18-2020 Main OR Intraoperative Record IntraOp Document Type FT Summary Primary Physician: Alli Gaston MD Finalized Date/Time: 01/18/20 09:27:07 Pt. Name: DELILAH MANCUSO /Sex: 1980 Female Med Rec #: [id number] Physician: Alli Gaston MD Financial #: [id number] Pt. Type: A Room/Bed: [facility] Admit/Disch: 01/15/20 05:56:52 - 01/15/20 15:15:00 Institution: Case Times FT Entry 1 Patient Times In Room 01/15/20 07:41:00 Out Room 01/15/20 09:42:00 Procedure Times Start 01/15/20 08:06:00 Stop 01/15/20 09:36:00 Anesthesia Times Start 01/15/20 07:41:00 Stop 01/15/20 09:42:00 Last Modified By: Sheree Park RN 01/15/20 09:45:43 General Comments: 0820: robot docked. [id number]: dr gaston out of room for consultation 0840:surgeon to console 01/18/2020 Chart opened to review and send charges Alayna Humphreys GRAPHICS SOFTWARE ENGINEER Case Attendance FT Entry 1 Entry 2 Entry 3 Case Attendee Jabier Puentes Jr., DO, MD, Alli Mittal GRAPHICS SOFTWARE ENGINEER/SA, Adelita Role Performed Anesthesiologist of Surgeon - Primary GRAPHICS SOFTWARE ENGINEER/SA Record Time In 01/15/20 07:41:00 01/15/20 07:56:00 [...] Vieira RN, JINAOR, Maritza Barth Role Performed Bellmaker - Primary Scrub - Primary Scrub - [...] DO Given Participants GErika MD, Daxa Colindres GRAPHICS SOFTWARE ENGINEER/Adelita OWEN Farris RN, Flor Cabrera CST, Isha [...] and tissue Entry 1 Skin Integrity Intact, [place], Warm, and Skin Abnormality No Dry Outcomes [...] By Outcomes Met? Yes Last Modified By: Shreee Park RN 01/15/20 07:59:29 Post-Care Text: The [...] Present Upon Arrival No Inserted LF 16FR [[id number]][F] Insertion Date/Time 01/15/20 08:00:00 Urine Residual 60 Insertion Site Uretheral Urine clear yellow Characteristics Inserted By Sharp GRAPHICS SOFTWARE ENGINEER/SA, Adelita Discontinued? No Outcomes Met? Yes Last [...] BLANKET MISTRAL AIR Quantity 1 Aid TORSO [[id number]][F] Fluid/Phillips Unit Mistral warming system Setting high/43 degrees Body Site Upper anterior torso Last Modified By: Sheree Park RN 01/15/20 07:25:29 Case Comments Finalized By: Jennifer Humphreys CST Document Signatures Signed By: Sheree Park RN 01/15/20 09:46 Jennifer Humphreys CST 01/18/20 09:27 Normal [facility] Preoperative Documentson Preoperative Documents [id number]# 1.00CD:127 Normal [facility] Operative Reporton 0 Operative Report Date [...] Ruma were then used to follow the WhereNetare manipulator guideline for creation of the vaginal [...] Alli Gaston MD, FACOG crj Dictated: 01/15/2020 #[id number] Typed: 01/16/2020 #[id number] cc: Alli Gaston MD, TAPAN Normal [facility] Comment on above: Result Comment: Elec tronically Signed By: Erika RODRIGUEZ, Alli Dickens\.br\Date and Time Signed: 01/17/20 07:01 EDT ABO/Rhon 01-15-2020 ABO/Rh Positive [facility] Comment on above: Performed By: #### 2 [id number], [id number], [id number], [id number], [id number], [id number] #### [facility] [address] [place] [address] ABO/Rh History Checkon 01-14 ABO/Rh History Check Verified Hx Blood Type Normal [facility] Comment on above: Performed By: #### 2 [id number], [id number], [id number], [id number], [id number], [id number] #### [facility] [address] [place] [address] ABSCon 01-15-2020 ABSC Gel Interp Negative Normal [facility] Comment on above: Performed By: #### 2 [id number], [id number], [id number], [id number], [id number], [id number] #### [facility] [address] [place] [address] Blood Bank ID#on 01-15-2020 BBID# [id number] [facility] Comment on above: Performed By: #### 2 [id number], [id number], [id number], [id number], [id number], [id number] #### [facility] [address] [place] [address] Blood Bank Slipon 01-15-2020 Blood Bank Slip [id number]#1 .00CD:127 Normal [facility] History and Physicalon 01-14 History and [...] Alli Gaston MD, FACOG gls Dictated: 01/14/2020 #[id number] Typed 01/15/2020 #[id number] cc: Alli Gaston MD, FACOG Normal [facility] Comment on above: Result Comment: Elec tronically Signed By: Alli Gaston MD\.br\Date and Time Signed: 01/15/20 09:31 EDT Inpatient Patient Summaryon 01-15-2020 Inpatient Patient Summary [place] [id number] [facility] Clinical Discharge Instructions PERSON INFORMATION Name: DELILAH MANCUSO [facility]#:[id number] PHYSICIANS Admitting Physician: Alli Gaston MD Attending Physician: Alli Gaston MD PCP: SHYAM REYNOLDS MD Discharge Diagnosis: Diabetes; Endometriosis; Female pelvic pain; Pelvic relaxation; S/P total hysterectomy; Status post bilateral salpingectomy Comment: PATIENT EDUCATION INFORMATION Instructions: PHP MYSQL DEVELOPER - Post Hysterectomy/[place] my/Major Surgery-Erika (Custom); Post Op Patient Instructions - MARYLU (Custom) Medication Leaflets: Follow up: With: Address: When: Alli [address], [address], [place] [address] Business (1) Within 6 weeks With: Address: When: Alli MACKENZ[address], [address], [place] [address] Business (1) Within 2 weeks Comments: Call for any problems. MEDICATION LIST New Medications [facility], [address], [place] [id number], [phone] acetaminophen-oxycodo ne (Percocet 325 mg-5 mg Tab) [...] tab By Mouth every day. Comment: Normal [facility] Main OR PACU I Recordon 12-18 Main OR PACU I Record PACU Phase I Document Type FT Summary Primary Physician: Alli Gaston MD Finalized Date/Time: 01/15/20 10:57:46 Pt. Name: DELILAH MANCUSO /Sex: 1980 Female Med Rec #: [id number] Physician: Alli Gaston MD Financial #: [id number] Pt. Type: A Room/Bed: Admit/Disch: 01/15/20 05:56:52 [...] Signed By: Joanna Macias RN 01/15/20 10:57 [facility] Main OR PACU II Recordon Main OR PACU II Record PACU Phase II Document Type FT Summary Primary Physician: Alli Gaston MD Finalized Date/Time: 01/15/20 15:31:21 Pt. Name: DELILAH MANCUSO Chrissie /Sex: 1980 Female Med Rec #: [id number] Physician: Alli Gaston MD Financial #: [id number] Pt. Type: A Room/Bed: [facility] Admit/Disch: 01/15/20 05:56:52 - Institution: Case [...] By: Irene Silva LPN 01/15/20 15:31 Normal [facility] Main OR Preoperative Recordo n 01-15-2020 Main OR Preoperative Record PreOp Document Type FT Summary Primary Physician: Alli Gaston MD Finalized Date/Time: 01/15/20 08:51:01 Pt. Name: DELILAH MANCUSO Chrissie /Sex: 1980 Female Med Rec #: [id number] Physician: Alli Gaston MD Financial #: [id number] Pt. Type: A Room/Bed: [facility] Admit/Disch: 01/15/20 05:56:52 - Institution: Case [...] By: Sheree Park RN 01/15/20 08:51 Normal [facility] Monitor Recordon 01-15-2020 Monitor Record [id number]# 1.00CD:127 Normal [facility] Monitor Record [id number]# 1.00CD:127 [facility] Patient Education - Texton 0 01-15-2020 [...] cramps. PLEASE CALL FOR ANY PROBLEMS. [facility] Progress Note-Physicianon Progress Note-Physician Patient: DELILAH [...] Cap 161 mg/dL HI POC Device SN [id number] POC Username DUYEN YEH 01/15/2020 6:13 EDT [...] interpretation: SINUS RHYTHM WITH SINUS ARRHYTHMIA. Plan [place] [employer] (ASA) physical status classification: Class III. Anesthetic Preoperative Plan Anesthesia: General. . Anesthetic plan, risks, benefits, and alternatives discussed with the patient and/or family. Patient verbalized understanding. Adverse reactions, complications, and alternatives discujssed. Consent signed and on chart.. Normal [facility] Comment on above: Result Comment: Elec tronically Signed By: Jabier Puentes Jr., DO\.br\Date and Time Signed: 01/15/20 07:02 EDT U BetaHcg Qualon 01-15-2020 HCG.beta subunit (U) [Moles/Vol] Negative Normal [facility] Comment on above: Performed By: #### 2 [id number] #### [facility] [address] [place] [address] UA With Cult Reflexon 2019 Bacteria LM Ql (Urine sed) TRACE Normal Trace [facility] Comment on above: Performed By: #### 2 119954, 05249562, 5802092, 4341024, 71065303, 4734992 #### [facility] [address] [place] [address] Bilirubin Ql (U) Negative Normal Negative [facility] Comment on above: Performed By: #### 2 523425, 78632224, 9659138, 7467125, 33260916, 8030629 #### [facility] [address] [place] [address] Clarity (U) CLEAR Normal Clear [facility] Comment on above: Performed By: #### 2 844195, 16414573, 1406969, 5041216, 12140350, 3045248 #### [facility] [address] [place] [address] Color (U) YELLOW Normal Yellow [facility] Comment on above: Performed By: #### 2 890849, 17817122, 7449460, 3261648, 82771427, 7622517 #### [facility] [address] [place] [address] Crystals LM Ql (Urine sed) Present Normal [facility] Comment on above: Performed By: #### 2 949036, 68463780, 7920164, 6570355, 63208959, 7557235 #### [facility] [address] [place] [address] Epithelial cells.squamous LM.HPF (Urine sed) [#/Area] 0-2 Normal 0-2 [facility] Comment on above: Performed By: #### 2 964398, 68748737, 8361463, 6688158, 34677832, 9626196 #### [facility] [address] [place] [address] Glucose Test strip (U) [Mass/Vol] Negative Normal Negative [facility] Comment on above: Performed By: #### 2 909637, 20693076, 6990924, 4752467, 49908950, 4859311 #### [facility] [address] [place] [address] Hemoglobin Ql (U) Negative Normal Negative [facility] Comment on above: Performed By: #### 2 088021, 35476146, 3614515, 1013821, 38234411, 0396137 #### [facility] [address] [place] [address] Ketones (U) [Mass/Vol] Negative Normal Negative [facility] Comment on above: Performed By: #### 2 853229, 19107786, 7879439, 6454420, 88534421, 8896693 #### [facility] [address] [place] [address] [place].plasma/Lithi um.RBC (Bld) [Mass ratio] 0-3 Normal 0-3 [facility] Comment on above: Performed By: #### 2 486272, 61575489, 8290791, 6660263, 21168916, 8270667 #### [facility] [address] [place] [address] Mucus Ql (Urine sed) 1+ Normal [facility] Comment on above: Performed By: #### 2 798266, 20692902, 0297237, 2607740, 41371854, 4341926 #### [facility] [address] [place] [address] Nitrite Ql (U) Negative Normal Negative [facility] Comment on above: Performed By: #### 2 351230, 58798840, 5467579, 6690754, 06592178, 9355004 #### [facility] [address] [place] [address] pH (U) 5.5 [pH] 5.0-9.0 [facility] Comment on above: Performed By: #### 2 388291, 68363436, 2539072, 7899325, 78335163, 6889556 #### [facility] [address] [place] [address] Protein (U) [Mass/Vol] Negative Normal Negative [facility] Comment on above: Performed By: #### 2 466445, 28978294, 5397550, 8888884, 90134765, 0049393 #### [facility] [address] [place] [address] Specific gravity (U) [Rel density] 1.025 1.005-1.030 [facility] Comment on above: Performed By: #### 2 339450, 18800633, 5730362, 0307444, 93610704, 4195464 #### [facility] [address] [place] [address] UA Spec Desc Lowry Normal [facility] Comment on above: Performed By: #### 2 486126, 71540796, 7329612, 7820935, 89838636, 7680290 #### [facility] [address] [place] [address] Urobilinogen Qn (U) 0.2 {Erasmo'U}/dL Normal 0.0-1.0 [facility] Comment on above: Performed By: #### 2 426018, 06467727, 1055865, 1764836, 30636842, 0720748 #### [facility] [address] [place] [address] WBC Auto Ql (U) Negative Normal Negative [facility] Comment on above: Performed By: #### 2 232373, 50158974, 9221949, 5602630, 31044464, 5976735 #### [facility] [address] [place] [address] WBC LM.HPF (Urine sed) [#/Area] 0-5 Normal 0-5 [facility] Comment on above: Performed By: #### 2 518466, 62101896, 4066321, 8026136, 59651639, 2274620 #### [facility] [address] [place] [address] Coding Summary.on 01-05-2020 Coding Summary. CODING DATE: 01/05/[address] [facility] DSC STATUS: Home (Routine DC) PAYOR: [facility] [place] [employer] DESCRIPTION 5733 Level 3 Minor Procedures [...] CphT Date Saved: 01/05/2020 02:42 pm Normal [facility] ABO/Rh Retypeon 01-04-2020 ABO/Rh Retype Interp Positive [facility] Comment on above: Performed By: #### 1 [id number] #### [facility] [address] [place] [address] B hCG Qualon 01-04-2020 Beta hCG Ql Negative Normal [facility] Comment on above: Performed By: #### 2 6714936 #### [facility] [address] [place] [address] BUNon 01-04-2020 Urea nitrogen [Mass/Vol] 12 mg/dL Normal 5-21 [facility] Comment on above: Performed By: #### 2 718970, 77469332, 8456171, 7571914, 27498229, 8467951 #### [facility] [address] [place] [address] CBC w/Indiceson 01-04-2020 Erythrocyte distribution width (RBC) [Ratio] 13.0 % Normal 10.9-14.2 [facility] Comment on above: Performed By: #### 2 413527, 57576894, 9870731, 0620657, 89144229, 3211426 #### [facility] [address] [place] [address] Hematocrit (Bld) [Volume fraction] 37.1 % Normal 34.0-46.0 [facility] Comment on above: Performed By: #### 2 704139, 94753020, 3859298, 8895868, 10008780, 7655244 #### [facility] [address] [place] [address] Hemoglobin (Bld) [Mass/Vol] 12.4 g/dL Normal 12.0-16.0 [facility] Comment on above: Performed By: #### 2 912463, 84116532, 5165389, 5003787, 20430302, 4729106 #### [facility] [address] [place] [address] MCH (RBC) [Entitic mass] 28.8 pg Normal 27.0-34.0 [facility] Comment on above: Performed By: #### 2 586881, 86064509, 6670177, 2201379, 26658265, 4566089 #### [facility] [address] [place] [address] MCHC (RBC) [Mass/Vol] 33.4 g/dL Normal 31.4-36.0 [facility] Comment on above: Performed By: #### 2 915478, 39171780, 6787516, 1506278, 21854872, 7040739 #### [facility] [address] [place] [address] MCV (RBC) [Entitic vol] 86.2 fL Normal 80.0-100.0 [facility] Comment on above: Performed By: #### 2 095415, 13978163, 7755943, 1129926, 74166283, 8559265 #### [facility] [address] [place] [address] Platelet mean volume (Bld) [Entitic vol] 7.8 fL Normal 6.4-10.8 [facility] Comment on above: Performed By: #### 2 286122, 76717161, 4882380, 3313883, 62253700, 3163278 #### [facility] [address] [place] [address] Platelets (Bld) [#/Vol] 266.0 E9/L Normal 150.0-500.0 [facility] Comment on above: Performed By: #### 2 827688, 22344339, 6079261, 6157379, 13990834, 0953908 #### [facility] [address] [place] [address] RBC (Bld) [#/Vol] 4.3 E12/L Normal 4.3-5.9 [facility] Comment on above: Performed By: #### 2 070938, 20645952, 5547836, 1797566, 52796974, 9679158 #### [facility] [address] [place] [address] WBC corrected for nucl RBC Auto (Bld) [#/Vol] 8.4 E9/L Normal 4.0-11.0 [facility] Comment on above: Performed By: #### 2 971941, 22479938, 2445518, 9861135, 60132982, 9460591 #### [facility] [address] [place] [address] Creatinineon 01-04-2020 Creatinine [Mass/Vol] 0.6 mg/dL Normal 0.5-1.3 [facility] Comment on above: Performed By: #### 2 350500, 05647002, 6096284, 5776598, 39947565, 7505677 #### [facility] [address] [place] [address] Lyteson 01-04-2020 Anion gap [Moles/Vol] 12 mmol/L Normal 6-16 [facility] Comment on above: Performed By: #### 2 887527, 72026181, 4383792, 9681693, 73523559, 1083278 #### [facility] [address] [place] [address] Chloride [Moles/Vol] 104 mmol/L Normal 101-111 [facility] Comment on above: Performed By: #### 2 900979, 87370685, 7714730, 0533453, 46639930, 4518456 #### [facility] [address] [place] [address] CO2 [Moles/Vol] 23 mmol/L Normal 21-31 [facility] Comment on above: Performed By: #### 2 650432, 14320285, 2954490, 9471316, 63272992, 8719442 #### [facility] [address] [place] [address] Potassium [Moles/Vol] 4.0 mmol/L Normal 3.5-5.3 [facility] Comment on above: Performed By: #### 2 708058, 63272318, 8092527, 7117669, 73886800, 3867390 #### [facility] [address] [place] [address] Sodium [Moles/Vol] 135 mmol/L Normal 135-145 [facility] Comment on above: Performed By: #### 2 255468, 30771202, 7938331, 1616117, 77419701, 7290643 #### [facility] [address] [place] [address] PT & PTTon 01-04-2020 aPTT Coag (PPP) [Time] 27.5 second(s) Normal 25.1-36.5 [facility] Comment on above: Result Comment: Hepa rin therapeutic range (represented by Anti-Factor Xa activity of 0.2 - 0.4 U/mL) corresponds to PTT of 56.6 - 109.0 sec. Performed By: #### 2 613616, 74920058, 9012041, 7322908, 20754728, 8486682 #### [facility] [address] [place] [address] INR Coag (PPP) [Relative time] 0.9 {INR} [facility] Comment on above: Result Comment: INR results are specifically intended to assess patients stabilized on long-term Anticoagulation therapy suggested INR?s ?Less Intensive Anticoagulation? 2.0 ? 3.0 Conventional Range 3.0 ? 4.5 Performed By: #### 2 368364, 54602600, 8229791, 3578241, 73298534, 2039907 #### [facility] [address] [place] [address] PT Coag (PPP) [Time] 10.4 second(s) Normal 10.2-12.9 [facility] Comment on above: Performed By: #### 2 955354, 13285492, 0372811, 4941112, 33209120, 2262954 #### [facility] [address] [place] [address] eGFRon 01-04-2020 GFR/1.73 sq M predicted among blacks MDRD (S/P/Bld) [Vol rate/Area] mL/min/{1.73_m2} Normal >=59 [facility] Comment on above: Order Comment: Order added by Discern Expert. Result Comment: eGFR is race adjusted. AA=. Performed By: #### 2 915837, 84767471, 2198471, 2658711, 63971154, 6348234 #### [facility] [address] [place] [address] GFR/1.73 sq M predicted among non-blacks MDRD (S/P/Bld) [Vol rate/Area] mL/min/{1.73_m2} Normal >=59 [facility] Comment on above: Order Comment: Order added by Discern Expert. Result Comment: Experience Design Director krissy kidney disease could be indicated at eGFR's of less than 60 mL/min/1.73m2. Kidney failure is indicated at less than 15 mL/min/1.73m2. Performed By: #### 2 350871, 20640641, 1674978, 2475747, 50179823, 4652237 #### [facility] [address] [place] [address] Microalb.,Random Uron 2017 Creatinine 162.3 mg/dL Normal 28.0-217.0 [facility] Comment on above: Performed By: #### C NOLVIA ####[address] [place] [address] Microalb/Creat Ratio CANNOT BE CALCULATED Normal <25 [facility] Comment on above: Performed By: #### C LÁZAROMA ####[address] [place] [address] Microalbumin conc. <12 Normal <21 [facility] Comment on above: Performed By: #### C PURMA ####[address] [place] [address] Vital Signs Date Time Vital Sign Value Performing Clinician Karissa blackwell 04-14-2022 22:24-0400 Respiratory rate 17 /min Raf Wilson MD Work Phone: [facility] 04-14-2022 22:20-0400 Diastolic blood pressure 76 mm[Hg] Raf Wilson MD Work Phone: [facility] 04-14-2022 22:20-0400 Heart rate 88 /min Raf Wilson MD Work Phone: [facility] [employer] 04-14-2022 22:20-0400 Systolic blood pressure 131 mm[Hg] Raf Wilson MD Work Phone: [facility] [employer] 04-14-2022 22:10-0400 SaO2% (BldA) [Mass fraction] 100 % Raf Wilson MD Work Phone: [facility] [employer] 04-14-2022 19:51-0400 Body height 170.2 cm Raf Wilson MD Work Phone: [facility] [employer] 04-14-2022 19:51-0400 Body mass index (BMI) [Ratio] 40.27 kg/m2 Raf Wilson MD Work Phone: [facility] [employer] 04-14-2022 19:51-0400 Body temperature 100.4 [degF] Raf Wilson MD Work Phone: [facility] [employer] 04-14-2022 19:51-0400 Body weight 116.62 kg Raf Wilson MD Work Phone: [facility] [employer] 01-01-2022 15:11-0400 Diastolic blood pressure 80 mm[Hg] Desmond Reynolds MD Work Phone: [employer] 01-01-2022 15:11-0400 SaO2% (BldA) [Mass fraction] 100 % Desmond Reynolds MD Work Phone: [employer] 01-01-2022 15:11-0400 Systolic blood pressure 135 mm[Hg] Desmond Reynolds MD Work Phone: [employer] 01-01-2022 14:06-0400 Body mass index (BMI) [Ratio] 39.53 kg/m2 Desmond Reynolds MD Work Phone: [employer] 01-01-2022 14:06-0400 Body temperature 97.7 [degF] Desmond Reynolds MD Work Phone: [employer] 01-01-2022 14:06-0400 Body weight 117.94 kg Desmond Reynolds MD Work Phone: [employer] 01-01-2022 14:06-0400 Heart rate 106 /min Desmond Reynolds MD Work Phone: [employer] 01-01-2022 14:06-0400 Respiratory rate 16 /min Desmond Reynolds MD Work Phone: [employer] 05-08-2021 15:14-0400 Body height 172.7 cm Keo Amaya MD Work Phone: [employer] Work Phone: 05-08-2021 15:14-0400 Body mass index (BMI) [Ratio] 38.77 kg/m2 Keo Amaya MD Work Phone: [employer] Work Phone: 05-08-2021 15:14-0400 Body temperature 99.19 [degF] Keo Amaya MD Work Phone: [employer] Work Phone: 05-08-2021 15:14-0400 Body weight 115.67 kg Keo Amaya MD Work Phone: [employer] Work Phone: 05-08-2021 15:14-0400 Diastolic blood pressure 86 mm[Hg] Keo Amaya MD Work Phone: [employer] Work Phone: 05-08-2021 15:14-0400 Heart rate 92 /min Keo Amaya MD Work Phone: [employer] Work Phone: 05-08-2021 15:14-0400 Respiratory rate 20 /min Keo Amaya MD Work Phone: [employer] Work Phone: 05-08-2021 15:14-0400 SaO2% (BldA) [Mass fraction] 97 % Keo Amaya MD Work Phone: [facility] Work Phone: 05-08-2021 15:14-0400 Systolic blood pressure 150 mm[Hg] Keo Amaya MD Work Phone: [facility] Work Phone: 04-27-2021 11:26-0400 Diastolic blood pressure 89 mm[Hg] MD RAMIREZ GRIMALDO Work Phone: [facility] Work Phone: 04-27-2021 11:26-0400 Heart rate 92 /min MD RAMIREZ GRIMALDO Work Phone: [facility] Work Phone: 04-27-2021 11:26-0400 SaO2% (BldA) [Mass fraction] 95 % MD RAMIREZ GRIMALDO Work Phone: [facility] Work Phone: 04-27-2021 11:26-0400 Systolic blood pressure 129 mm[Hg] MD RAMIREZ GRIMALDO Work Phone: [facility] Work Phone: 04-27-2021 10:39-0400 Body temperature 98.1 [degF] MD RAMIREZ GRIMALDO Work Phone: [facility] Work Phone: 04-27-2021 10:39-0400 Respiratory rate 20 /min MD RAMIREZ GRIMALDO Work Phone: [facility] Work Phone: 04-23-2021 15:35-0400 Body height 170.18 cm MD RAMIREZ GRIMALDO Work Phone: [facility] Work Phone: 04-23-2021 15:35-0400 Body mass index (BMI) [Ratio] 40.5 kg/m2 MD RAMIREZ GRIMALDO Work Phone: [facility] Work Phone: 04-23-2021 15:32-7110 Body weight 117.4 kg MD RAMIREZ GRIMALDO Work Phone: [facility] Work Phone: Encounters Encounter Date Encounter Type Care Provider Facility Start: 06-10-2023 End: 06-11-2023 [facility] Start: 05-23-2023 End: 05-24-2023 [facility] Start: 05-21-2023 End: 05-22-2023 [facility] Start: 05-16-2023 End: 05-17-2023 [facility] Start: 05-13-2023 End: 05-14-2023 [facility] Start: 05-09-2023 End: 05-10-2023 [facility] Start: 05-07-2023 End: 05-08-2023 [facility] Start: 05-07-2023 End: 05-07-2023 Subsequent hospital visit by physician Marcial Chaves PT [facility] Comment on above: Arrived Start: 05-02-2023 End: 05-03-2023 [facility] Start: 04-25-2023 End: 04-26-2023 [facility] Start: 04-23-2023 End: 04-24-2023 [facility] Start: 04-19-2023 [facility] Start: 04-17-2023 End: 04-18-2023 ambulatory [facility] Start: 04-17-2023 End: 04-17-2023 Subsequent hospital visit by physician Marcial Chaves PT [facility] Comment on above: Arrived Start: 04-15-2023 End: 04-16-2023 [facility] Start: 04-15-2023 End: 04-15-2023 Subsequent hospital visit by physician Nik Canales PTA [facility] Comment on above: Arrived Start: 04-11-2023 End: 04-12-2023 ambulatory DANIE AYERS [facility] Start: 03-11-2023 End: 03-14-2023 [facility] Start: 03-01-2023 End: 03-02-2023 ambulatory [facility] Start: 08-22-2022 End: 08-23-2022 ambulatory [facility] Start: 08-22-2022 End: 08-22-2022 Subsequent [...] patient visit Raf Wilson MD Work Phone: [facility] ED Comment on above: COVID-19 virus infec tion (Primary Dx); Vasovagal near-syncope Start: 03-15-2022 End: 03-15-2022 Subsequent hospital visit by physician [facility] Covid19 Pat Screening Schedule [facility] Comment on above: Suspected COVID-19 v irus infection Start: 02-12-2022 End: 02-12-2022 Subsequent hospital visit by physician [facility] Ekg [facility] Comment on above: Palpitations Start: 01-20-2022 End: 01-20-2022 Subsequent hospital visit by physician Shyam Reynolds MD Work Phone: [facility] Comment on above: Controlled type 2 di abetes mellitus without complication, without long-term current use of insulin (HCC); Mixed hyperlipidemia Start: 01-01-2022 End: 01-01-2022 Emergency department patient visit Desmond Reynolds MD Work Phone: [facility] ED Comment on above: Lower abdominal pain (Primary Dx) Start: 07-24-2021 End: 07-24-2021 Subsequent hospital visit by physician Shyam Reynolds MD Work Phone: [facility] Comment on above: Mixed hyperlipidemia ; Benign essential HTN; Hair loss Start: 05-08-2021 End: 05-08-2021 Emergency department patient visit Keo Amaya MD Work Phone: [facility] ED Comment on above: Edema of left foot ( Primary Dx) Start: 04-23-2021 End: 04-23-2021 ambulatory [facility] Start: 04-23-2021 End: 04-27-2021 Evaluation and management of inpatient MD RAMIREZ GRIMALDO Work Phone: [facility] Start: 04-17-2021 End: 04-17-2021 Subsequent hospital visit by physician [facility] Covid19 Pat Screening Schedule [facility] Comment on above: Arrived Start: 04-13-2021 End: 04-13-2021 Subsequent hospital visit by physician [facility] Covid19 Pat Screening Schedule [facility] Comment on above: Suspected COVID-19 v irus infection Start: 08-16-2020 End: 08-16-2020 Subsequent hospital visit by physician Shyam Reynolds [facility] Laboratory Comment on above: Mixed hyperlipidemia ; Uncontrolled type 2 diabetes mellitus with hyperglycemia (HCC) Start: 05-02-2020 End: 05-02-2020 Subsequent hospital visit by physician Shyam Reynolds [facility] Laboratory Comment on above: Controlled type 2 di abetes mellitus without complication, without long-term current use of insulin (HCC); Mixed hyperlipidemia; Benign essential HTN Start: 02-26-2018 End: 02-27-2018 Patient encounter [facility] Procedures Date Procedure Procedure Detail Performing Clinician [...] years Vaccine (2 of 2 - PPSV23) [facility] Start: 02-15-2027 DTaP/Tdap/Td vaccine (3 - Td or Tdap) DTaP/Tdap/Td vaccine (3 - Td or Tdap) [facility] Start: 02-15-2027 DTaP/Tdap/Td vaccine (3 - Td) DTaP/Tdap/Td vaccine (3 - Td) [place] Start: 03-01-2024 GFR test (Diabetes, CKD 3-4, OR last GFR 15-59) GFR test (Diabetes, CKD 3-4, OR last GFR 15-59) [facility] [employer] Start: 03-01-2024 Hemoglobin A1c measurement A1C test (Diabetic or Prediabetic) [facility] [employer] [facility] Start: 03-01-2024 Lipid panel Lipids [facility] [employer] Start: 03-01-2024 Urine screening for protein Diabetic Alb to Cr ratio (uACR) test [facility] [employer] Start: 09-09-2023 End: 09-09-2023 Patient encounter procedure [facility] Comment on above: 6m check up Start: 08-23-2023 Depression Screen Depression Screen [facility] [employer] [facility] Start: 08-22-2023 GFR test (Diabetes, CKD 3-4, OR last GFR 15-59) GFR test (Diabetes, CKD 3-4, OR last GFR 15-59) [facility] Start: 08-22-2023 Lipid panel Lipids [facility] Start: 05-16-2023 End: 05-16-2023 Patient encounter procedure 05/16/2023 4:00 PM EDT Appointment [facility] [address] [place] [address] Marcial Chaves PT [facility] Start: 05-13-2023 End: 05-13-2023 Patient encounter procedure 05/13/2023 4:45 PM EDT Appointment [facility] [address] [place] [address] Nik Canales PTA [facility] Start: 05-09-2023 End: 05-09-2023 Patient encounter procedure 05/09/2023 4:30 PM EDT Appointment [facility] [address] [place] [address] Marcial Chaves, PT $ BCBS-20.00 Copay-Rt PT Tendon Dysfunction-[place], Fax [phone] [facility] Comment on above: $ BCBS-20.00 Copay-R t PT Tendon Dysfunction-[facility] [place], Fax [phone] Start: 04-25-2023 End: 04-25-2023 Patient encounter procedure 04/25/2023 Appointment Physical Therapy Marcial Chaves PT [facility] Start: 04-23-2023 End: 04-23-2023 Patient encounter procedure 04/23/2023 Appointment Physical Therapy Nik Canales PTA [facility] Start: 04-17-2023 Subsequent hospital visit by physician 04/17/2023 Hospital Encounter Physical Therapy Marcial Chaves, PT [facility] Start: 03-19-2023 Influenza vaccination Flu vaccine (# 1) [facility] Start: 02-09-2023 Depression Screen Depression Screen [facility] Start: 01-20-2023 Hemoglobin A1c measurement A1C test (Diabetic or Prediabetic) [facility] Start: 01-20-2023 Lipid panel Lipids [facility] Start: 01-20-2023 Urine screening for protein Diabetic microalbuminuria test [facility] Start: 08-23-2022 End: 08-23-2022 Patient encounter procedure 08/23/2022 Office Visit Shyam Garcia MD [address] [place] [address] [facility] Start: 07-24-2022 Creatinine measurement Creatinine mo [facility] Start: 07-24-2022 Diabetic foot examination Diabetic f oot exam [facility] Start: 07-24-2022 Hemoglobin A1c measurement A1C test (Diabetic or Prediabetic) [facility] Start: 07-24-2022 Lipid panel [facility] Start: 07-24-2022 Potassium monitoring Potassium monit oring [facility] Start: 04-19-2022 Influenza vaccination M [facility] Start: 03-19-2022 Influenza vaccination Flu vaccine (# 1) [facility] Start: 01-22-2022 End: 01-22-2022 Patient encounter procedure 01/22/2022 Office Visit Family Shyam Strickland MD [address] [place] [address] [facility] Start: 11-24-2021 Hemoglobin A1c measurement A1C test (Diabetic or Prediabetic) [facility] Work Phone: Start: 11-24-2021 Lipid panel Lipid screen [facility] Work Phone: Start: 08-30-2021 Depression Screen Depression Screen [facility] Start: 06-13-2021 End: 06-13-2021 Patient encounter procedure 06/13/2021 Office Visit Shyam Garcia MD [address] [place] [address] [phone] [facility] Start: 05-02-2021 Creatinine measurement Creatinine mo [facility] [place], [place] Start: 05-02-2021 Diabetic microalbumi dakota test Diabetic microalbuminuria test [facility] Start: 05-02-2021 HbA1c (Bld) [Mass fraction] A1C test (Diabetic or Prediabetic) [place], [place] Start: 05-02-2021 Lipid panel Lipid screen [place], [place] Start: 05-02-2021 Potassium monitoring Potassium monit [place], [place] Start: 05-02-2021 Urine screening for protein [facility] Start: 04-19-2021 Influenza vaccination Flu vaccine (# 1) [facility] Start: 10-05-2020 Creatinine measurement Creatinine mo nitoring [place], [place] Start: 10-05-2020 HbA1c (Bld) [Mass fraction] A1C test (Diabetic or Prediabetic) [place] Start: 10-05-2020 Lipid panel Lipid screen [place], [place] Start: 10-05-2020 Potassium monitoring Potassium monit [place], [place] Start: 09-07-2020 Diabetic retinal exam Diabetic retin al exam [facility] Start: 09-07-2020 Glaucoma screening Diabetic retinal exam [facility] Start: 08-30-2020 End: 08-30-2020 Office Visit 08/30/2020 Office Visit Family Medicine Shyam Reynolds MD [address] [place] [address] [phone] [facility] Start: 05-03-2020 End: 05-03-2020 Office Visit 05/03/2020 Office Visit Family Shyam Strickland MD [address] [place] [address] [phone] [facility] Start: 04-19-2020 Influenza vaccination Flu vaccine (# 1) [place] Start: 07-20-2019 Diabetic microalbumi dakota test Diabetic microalbuminuria test [place] Start: 02-15-2018 Diabetic foot examination Diabetic f oot exam [place] Start: 02-15-2018 Pneumococcal 0-64 ye ars Vaccine (2 - PCV) Pneumococcal 0-64 years Vaccine (2 - PCV) [facility] Start: 2001 Hepatitis B vaccine (1 of 3 - Risk 3-dose series) Hepatitis B vaccine (1 of 3 - Risk 3-dose series) [facility] Start: 2000 Hepatitis C screening Hepatitis C [facility] Start: 1997 HIV screening HIV screen [facility] Start: 1994 COVID-19 Vaccine (1) COVID-19 Vaccin e (1) [facility] Start: 1987 COVID-19 Vaccine (1) COVID-19 Vaccin e (1) [facility] Start: 1983 Varicella vaccine (1 of 2 - 2-dose childhood series) Varicella vaccine (1 of 2 - 2-dose childhood series) [facility] Start: 1982 COVID-19 Vaccine (#1) COVID-19 Vacci ne (#1) [facility] Start: 1982 Hepatitis B vaccine (1 of 3 - 3-dose series) Hepatitis B vaccine (1 of 3 - 3-dose series) [facility] Start: 1982 Hepatitis C screening Hepatitis C [facility] End: 02-12-2022 Cardiac event monitor Cardiac event monitor Cardiac Services Routine Palpitations 1 Occurrences starting 02/12/2022 until 02/12/2022 [facility] [employer] Phone: Comment on above: 1 Occurrences starti ng 02/12/2022 until 02/12/2022 End: 04-13-2021 COVID-19 COVID-19 Lab Routine Suspected COVID-19 virus infection 1 Occurrences starting 04/13/2021 until 04/13/2021 [facility] [employer] Phone: Comment on above: 1 Occurrences starti ng 04/13/2021 until 04/13/2021 COVID-19 [facility] [employer] Phone: End: 04-17-2021 COVID-19 [facility] [employer] Phone: Comment on above: One Time for 1 Occur rences starting 04/17/2021 until 04/17/2021 Once for 1 Occurrenc es starting 04/17/2021 until 04/17/2021 EKG 12 Lead EKG 12 Lead ECG STAT 04/14/2022 8:51 PM EDT [facility] [employer] Work Phone: End: 05-02-2020 HbA1c (Bld) [Mass fraction] Hemoglobin A1C Lab Routine Controlled type 2 diabetes mellitus without complication, without long-term current use of insulin ([facility]) 1 Occurrences starting 05/02/2020 until 05/02/2020 [place] Comment on above: 1 Occurrences starti ng 05/02/2020 until 05/02/2020 HbA1c (Bld) [Mass fraction] Hemoglobin A1C Lab Routine Controlled type 2 diabetes mellitus without complication, without long-term current use of insulin ([facility]) 05/02/2020 6:57 AM EDT [place] End: 01-20-2022 Hemoglobin A1c/Hemoglobin.total in Blood [employer] [facility] [employer] Work Phone: Comment on above: 1 Occurrences starti ng 01/20/2022 until 01/20/2022 Lactate [Moles/volum e] in Serum or Plasma [facility] Work Phone: End: 01-20-2022 Microalbumin / Creatinine Urine Ratio Microalbumin / Creatinine Urine Ratio Lab Routine Controlled type 2 diabetes mellitus without complication, without long-term current use of insulin ([facility]) 1 Occurrences starting 01/20/2022 until 01/20/2022 [facility] [employer] Work Phone: Comment on above: 1 Occurrences starti ng 01/20/2022 until 01/20/2022 Patient Education COVID-19 (Key navirus Disease 2019) (DC) [facility] Work Phone: Patient referral [facility] Work Phone: Immunizations Immunization Date Immunization Notes Care Provider Sharon boucher 02-15-2017 pneumococcal polysac charide vaccine, 23 valent [facility] [place] 02-15-2017 tetanus toxoid, redu zulma diphtheria toxoid, and acellular pertussis vaccine, adsorbed [facility] 04-03-2010 tetanus toxoid, redu zulma diphtheria toxoid, and acellular pertussis vaccine, adsorbed [facility]wh Schedule [facility] Work Phone: Payers Date Payer Category Payer Unknown [id number] 2015 Unknown [id number] 1982 Unknown [id number] 2.16.8 [id number] 1982 Unknown [id number] 2.16.8 [id number] 1982 Unknown [id number] 2.16.8 [id number] 1982 Unknown [id number] 2.16.8 [id number] 1982 Unknown [id number] 2.16.8 [id number] 1982 Unknown [id number] 2.16.8 [id number] 1982 Unknown [id number] 2.16.8 [id number] 1982 Unknown [id number] 2.16.8 [id number] 1982 Unknown [id number] 2.16.8 [id number] 1982 Unknown [id number] 2.16.8 [id number] 1982 Unknown [id number] 2.16.8 [id number] 1982 Unknown [id number] 2.16.8 [id number] 1982 Unknown [id number] 2.16.8 [id number] 1982 Unknown [id number] 2.16.8 [id number] 1982 Unknown [id number] 2.16.8 [id number] 1982 Unknown [id number] 2.16.8 [id number] 1982 Unknown [id number] 2.16.8 [id number] Social History Date Type Detail Facility Start: 05-17-2020 End: 04-14-2022 Tobacco smoking status NHIS Never smoker [place] Start: 05-17-2020 End: 04-14-2022 Tobacco use and exposure Never used [place] Start: 05-17-2020 End: 02-09-2022 Alcohol intake Current drinker of alcohol (finding) [place] Start: 10-22-2019 History SDOH Financial 4 [place] Start: 10-22-2019 End: 02-07-2023 History SDOH Food Worry 1 [place], [place] Start: 10-22-2019 End: 02-07-2023 History SDOH Transport Med 2 [place] Start: 08-06-2013 Alcohol Comment Rarely, maybe once a year [place], [place] Start: 1980 Sex Assigned At Not on file [place], [place] Start: 02-24-2021 End: 02-07-2023 History SDOH Financial 5 [facility] Work Phone: Start: 04-23-2021 [facility] Work Phone: Start: 04-23-2021 With Family [facility] Work Phone: Start: 04-23-2021 Concerned [facility] Work Phone: Start: 04-23-2021 None [facility] Work Phone: Start: 04-23-2021 Self [facility] Work Phone: Start: 1980 Sex Assigned At Female [facility] Work Phone: Start: 12-22-2021 End: 04-14-2022 Exposure to SARS-CoV-2 (event) Not sure [employer] Start: 04-14-2022 End: 03-04-2023 Alcohol intake Ex-drinker (finding) [employer] Work Phone: Start: 02-07-2023 End: 03-04-2023 History of Social function [employer] Start: 02-07-2023 End: 03-04-2023 Tobacco use panel [facility] How hard is it for y ou to pay for the very basics like food, housing, medical care, and heating Not hard at all [employer] (I/We) worried maureen er (my/our) food would run out before (I/we) got money to buy more. Never true [employer] At any time in the p ast 12 months, were you homeless or living in intermediate [including now]? No [employer] Medical Equipment Procedure Code Equipment Code Equipment Origin al Text Equipment Identifier Dates Carmen monitor wi th test strips and lancets. Test BS daily and prn. [id number] Start: 08-04-2013 Goals Date Patient Goal Desired Activity /State Functional Status Date Assessment Result Facility 04-27-2021 Functional status Ambulates [facility] Work Phone: 04-23-2021 Functional status Bathing Ability Indepen dent [facility] Work Phone: Mental Status Date Assessment Result Facility 04-27-2021 Cognitive function Appropriate;Cooperativ e [facility] Work Phone: 04-23-2021 Cognitive function No Impairment [facility] Work Phone: Clinical Notes 04-25-2021 to 04-17-2023 Marcial Chaves, PT - 04/17/2023 3:30 PM Claire Naranjo RN - 04/14/2022 9:06 PM Claire Naranjo RN - 04/14/2022 8:52 PM Karthik Duran RCP - 02/12/2022 8:00 AM EDT Note Date & Type Note Facility 04-17-2023 History of Present illness Narrative Images from the original note were not included. [facility] Outpatient Physical Therapy Daily Note Date: 04/17/2023 [...] HEP to optimize therapy progress [employer] Service Agent Goals Time Frame for Nursing Home Goals : 8 visits Food Service [employer] Goal 1: Patient will demonstrate right ankle MMT to 5/5 in all planes to allow improved ambulation [employer] Service [employer] Goal 2: Patient will demonstrate SLS on right x30 with low pain level Food Service [employer] Goal 3: Patient will improve LEFS score from 27/80 to 60/80 to demonstrate functional improvement Post Treatment Pain: 3/10 Time In: 1530 Time Out : 1612 Timed Code Treatment Minutes: 28 Minutes Total Treatment Time: 42 Minutes Marcial Chaves, PT Date: 04/17/2023 documented in this encounter [facility] 04-14-2022 History of Present illness Narrative Patient contacted per patient request. Saud will be coming to the ER t osee patient at her request. Patient states that she thinks she is going to pass out. Patient placed in wheel chair and moved to room 8. EKG ordered. VSS. Patient visibly pale in the face. Patient eyes open and looking at advertising copywriter entire time and following all commands. documented in this encounter [employer] Phone: 02-12-2022 History of Present illness Narrative The patient was educated on the use of an event monitor. The patient's comprehension was high. The patient was able to verbalize recall. The patient was instructed on how and when to return the monitor. documented in this encounter [employer] Phone: 06-16-2021 Hospital Discharge instructions Additional Instructions [...] STOP. Call an acute care nurse at [phone] for any questions regarding these instructions. Your health information can be accessed through an application such as those used on a smartphone. Depending on the chosen application, you may be able to access information such as your medications, allergies, or lab results. If you are interested in using an application, please call the [employer] at [phone] We have appreciated the opportunity to be your healthcare provider. We sincerely hope that we have met your expectations. We strive for excellence. [employer] surveys are mailed to our customers after service is provided and we use your input from the completed and returned surveys to improve our care delivery. We encourage you to submit this feedback so that we may continue to be your hospital of choice. Thank you. Name of RN preparing this discharge: Nicolette Christie RN. [facility] Work Phone: 05-08-2021 Hospital Discharge instructions [...] STOP. Call an acute care nurse at [phone] for any questions regarding these instructions. Your health information can be accessed through an application such as those used on a smartphone. Depending on the chosen application, you may be able to access information such as your medications, allergies, or lab results. If you are interested in using an application, please call the [employer] at [phone] We have appreciated the opportunity to be your healthcare provider. We sincerely hope that we have met your expectations. We strive for excellence. [employer] surveys are mailed to our customers after service is provided and we use your input from the completed and returned surveys to improve our care delivery. We encourage you to submit this feedback so that we may continue to be your hospital of choice. Thank you. Name of RN preparing this discharge: Nicolette Christie RN. [facility] Work Phone: 2021 Hospital Discharge instructions [...] STOP. Call an acute care nurse at [phone] for any questions regarding these instructions. Your health information can be accessed through an application such as those used on a smartphone. Depending on the chosen application, you may be able to access information such as your medications, allergies, or lab results. If you are interested in using an application, please call the [employer] at [phone] We have appreciated the opportunity to be your healthcare provider. We sincerely hope that we have met your expectations. We strive for excellence. [employer] surveys are mailed to our customers after service is provided and we use your input from the completed and returned surveys to improve our care delivery. We encourage you to submit this feedback so that we may continue to be your hospital of choice. Thank you. Name of RN preparing this discharge: Nicolette Christie RN. [facility] Work Phone: 04-27-2021 Note [facility] Patient: DELILAH MANCUSO DISCHARGE SUMMARY Admit Date: 04/23/21 /Age: 09 1980 Attending Physician: Júnior Valadez MD Med Rec #: [id number] Date: 04/27/21 Time of Encounter: 12:03 Provisional [...] reports loss of taste. He was taking [id number] medications for cough and fever but symptoms [...] #4 tablet 04/27/21 Primary Care Physician[place] [facility] [place] [facility] [place]. Discharge Disposition: Home Total time spent at this encounter:: 35 minutes Authenticated on: 04/27/21 120 [id number] [id number] CC: Júnior Valadez MD [facility] 04-27-2021 Hospital Discharge instructions Additional Instructions [...] STOP. Call an acute care nurse at [phone] for any questions regarding these instructions. Your health information can be accessed through an application such as those used on a smartphone. Depending on the chosen application, you may be able to access information such as your medications, allergies, or lab results. If you are interested in using an application, please call the [employer] at [phone] We have appreciated the opportunity to be your healthcare provider. We sincerely hope that we have met your expectations. We strive for excellence. [employer] surveys are mailed to our customers after service is provided and we use your input from the completed and returned surveys to improve our care delivery. We encourage you to submit this feedback so that we may continue to be your hospital of choice. Thank you. Name of RN preparing this discharge: Nicolette Christie RN. [facility] Work Phone: 04-26-2021 [facility] PHYSICIAN PROGRESS NOTE Admit Date: 04/23/21 /Age: 09 1980 Attending Physician: Júnior Valadez MD Dictating Physician: Júnior Valadez MD Med Rec #: [id number] Date: 04/26/21 Time of Encounter: 10:42 Interval [...] 07/22/21 15:09 Albuterol Sulfate 2.5 mg/ (Ipratropium [place] 0.5 mg) 0 mg IH RESP PRN [...] 100 mls @ 200 mls/hr IV DAILY [facility] Stop: 04/27/21 09:29 Last Admin: 04/26/21 09:49 Dose: 200 mls/hr Documented by: Levofloxacin/Dextrose (Levaquin Iv) 500 mg in 100 mls @ 100 mls/hr IV DAILY [facility] Stop: 05/04/21 09:59 Last Admin: 04/26/21 09:49 Dose: Not Given Documented by: Insulin Human Lispro (Insulin Lispro (Humalog) 1 Unit/0.01 Ml Inj) 0 unit SUBCUT TIDWM [facility]; Protocol Stop: 07/22/21 16:59 Last Admin: 04/26/21 08:00 Dose: 2 units Documented by: Lisinopril (Lisinopril (Zestril) 20 Mg Tablet) 20 mg PO DAILY [facility] Stop: 07/23/21 08:59 Last Admin: 04/26/21 08:13 Dose: 20 mg Documented by: Bisoprolol-Hctz 2.5- (6.25 Mg) 1 tab PO DAILY [facility] Stop: 07/23/21 08:59 Last Admin: 04/26/21 08:16 Dose: 1 tab Documented by: Non-Formulary Medication (Empagliflozin [Jardiance]) 10 mg PO DAILY [facility] Stop: 07/23/21 08:59 Last Admin: 04/26/21 [...] home occasions Morbid obesity, BMI 40 Meet [facility] Midnight Rule Requirement: Yes Hospital Certify Text: {This admission will require a hospital stay exceeding two midnights for the care and treatment of the following condition} Authenticated on: 04/26/21 1043 [id number] [phone] CC: [facility] 04-25-2021 Note [facility] Patient: DELILAH MANCUSO PHYSICIAN PROGRESS NOTE Admit Date: 04/23/21 /Age: 09 1980 Attending Physician: Júnior Valadez MD Dictating Physician: Júnior Valadez MD Med Rec #: [id number] Date: 04/25/21 Time of Encounter: 11:34 Interval [...] 07/22/21 15:09 Albuterol Sulfate 2.5 mg/ (Ipratropium [place] 0.5 mg) 0 mg IH RESP PRN [...] 100 mls @ 100 mls/hr IV DAILY [facility] Stop: 05/04/21 09:59 Insulin Human Lispro (Insulin Lispro (Humalog) 1 Unit/0.01 Ml Inj) 0 unit SUBCUT TIDWM [facility]; Protocol Stop: 07/22/21 16:59 Last Admin: 04/25/21 08:20 Dose: 2 units Documented by: Lisinopril (Lisinopril (Zestril) 20 Mg Tablet) 20 mg PO DAILY [facility] Stop: 07/23/21 08:59 Last Admin: 04/25/21 08:21 Dose: 20 mg Documented by: Bisoprolol-Hctz 2.5- (6.25 Mg) 1 tab PO DAILY [facility] Stop: 07/23/21 08:59 Last Admin: 04/25/21 08:21 Dose: 1 tab Documented by: Non-Formulary Medication (Empagliflozin [Jardiance]) 10 mg PO DAILY [facility] Stop: 07/23/21 08:59 Last Admin: 04/25/21 [...] home occasions Morbid obesity, BMI 40 Meet [facility] Midnight Rule Requirement: Yes Hospital Certify Text: {This admission will require a hospital stay exceeding two midnights for the care and treatment of the following condition} Authenticated on: 04/25/21 1135 [id number] [phone] CC: [facility] 04-25-2021 Note [facility] Patient: DELILAH MANCUSO HISTORY AND PHYSICAL Admit Date: 04/23/21 /Age: 09 1980 Attending Physician: Júnior Valadez MD Med Rec #: [id number] Date: 04/24/21 Time of Encounter: 10:30 Chief [...] reports loss of taste. He was taking [id number]-uzhlojt medications for cough and fever but symptoms [...] home occasions Morbid obesity, BMI 40 Meet [facility] Midnight Rule Requirement: Yes Hospital Certify Text: {This admission will require a hospital stay exceeding two midnights for the care and treatment of the following condition} - VTE Medications Was VTE prophylaxis medication prescribed?: Yes - VTE Device Was a VTE prophylaxis device ordered?: Yes Authenticated on: 04/25/21920/ 3 3 -[id number] CC: Júnior Valadez MD [facility] Chief complaint+Reason for visit Narrative Reason for Visit Pneumonia due to COVID-19 virus [facility] Work Phone: Evaluation note* Diagnosis Suspected COVID-19 virus infection documented in this encounter [employer] Phone: evaluation note* Diagnosis Onset Date Resolution Status Pneumonia due to COVID-19 virus acute [facility] Work Phone: Evaluation note* Diagnosis Edema of left foot- Primary documented in this encounter [employer] Phone: evaluation note* Diagnosis Mixed hyperlipidemia Benign essential HTN Essential hypertension, benign Hair loss Alopecia, unspecified documented in this encounter [employer] Phone: evaluation note* Diagnosis Lower abdominal pain- Primary Abdominal pain, other specified site documented in this encounter [employer] Phone: evaluation note* Diagnosis Controlled type 2 diabetes mellitus without complication, without long-term current use of insulin (HCC) Mixed hyperlipidemia documented in this encounter [facility] [employer] Phone: evaluation note* Diagnosis Palpitations documented in this encounter [facility] [employer] Phone: evaluation note* Diagnosis Suspected COVID-19 virus infection documented in this encounter [facility] [employer] Phone: evaluation note* Diagnosis COVID-19 virus infection- Primary Vasovagal near-syncope Syncope and collapse documented in this encounter [facility] [employer] Phone: evaluation note* Diagnosis Uncontrolled type 2 diabetes mellitus with hyperglycemia (HCC) Mixed hyperlipidemia Encounter for hepatitis C screening test for low risk patient Screening for human immunodeficiency virus without presence of risk factors Special screening examination for other specified viral diseases Benign essential HTN Essential hypertension, benign documented in this encounter [facility] [employer] Phone: Hospital Discharge instructions* Attachments The following attachments cannot be sent through Care Everywhere. * Edema: Leg and Ankle ([place]jibout[place]) documented in this [facility] [place] [facility]: [facility] Discharge instructions* Attachments The following attachments cannot be sent through Care Everywhere. * Abdominal Pain ([place]ib[place]) documented [facility] [place] Phone: Hospital Discharge instructions* Attachments The following attachments cannot be sent through Care Everywhere. * Coronavirus Disease (COVID-19): General Info ([place]ib[place]ian) * Coronavirus Disease (COVID-19): Isolation ([place]) * Vasovagal Syncope ([place]) * Lightheadedness or Faintness ([place]) * [facility]ainting ([place]) [facility] [employer] [facility]: Summary Purpose Family History No Family History Records FoundNo Family History Records FoundNo Family History Records FoundNo Family History Records FoundNo Family History Records Found Advance Directives No Advanced Directives Records FoundDocuments on File Type Date Recorded Patient Composite Laminator Expl anation ACP-Advance Directive ACP-Power of Brim Raiser Advance Directive Response Recorded Date/ Time State DNR No April 23 11:49am Living Will No April 23 4:53pm Advanced Directives Not interested April 10:22am Advance Directive Response Recorded Date/ Time Advanced Directives Not interested April 10:22am Living Will No April 23 4:53pm State DNR No April 23 11:49am Documents on File Type Date Recorded Patient Composite Laminator Expl anation ACP-Advance Directive ACP-Power of Brim Raiser Procedure Findings Note Patient: DELILAH MANCUSO MR [...] list: All Problems Diabetes / SNOMED CT 505411435 / Confirmed Uterine prolapse / SNOMED CT 39361449 / Confirmed Resolved: Hypertension / SNOMED CT 1731242218 Physical Examination Vital Signs 01/15/2020 10:51 EDT [...] Procedures Cardiac event [place] [address] Referral ID Status Reason Start Date Expiration Date Visits Re quested Visits Authorized [id number] Open 02/16/2022 02/16/2023 1 1 Additional Source Comments INFORMATION SOURCE (unrecogn ized section and content) DATE CREATED AUTHOR 02/27/2018 [facility] DATE CREATED AUTHOR AUTHOR'S ORGANIZ ATION 01/25/2020 Eleazar Bass [facility] DATE CREATED AUTHOR AUTHOR'S ORGANIZ ATION 04/24/2021 [facility] DATE CREATED AUTHOR AUTHOR'S ORGANIZ ATION 06/17/2021 [facility] DATE CREATED AUTHOR AUTHOR'S ORGANIZ ATION [...] event monitor Shyam Reynolds MD [address] [place] [address] Referral ID Status Reason Start Date Expiration Date Visits Re quested Visits Authorized [id number] Open 02/16/2022 02/16/2023 1 1 Reason Comments Fever 101.4 Generalized Body Aches States possible e xposure by student Care Teams (unrecognized sec tion and content) Accountant Property Relationship Specialty Start Date End Date Shyam Reynolds MD [address] [place] [address] PCP - General Internal Medicine 10/11/11 Accountant Property Relationship Specialty Start Date End Date Shyam Reynolds MD [address] [place] [address] PCP - General Internal Medicine 10/11/11 Accountant Property Relationship Specialty Start Date End Date Shyam Reynolds MD [address] [place] [address] PCP - General Internal Medicine 10/11/11 Accountant Property Relationship Specialty Start Date End Date Syham Reynolds MD [address] [place] [address] PCP - General Internal Medicine 10/11/11 Accountant Property Relationship Specialty Start Date End Date Back, MD Shyam [address] [place] [address] PCP - General Internal Medicine 10/11/11 Accountant Property Relationship Specialty Start Date End Date Back, MD Shyam [address] [place] [address] PCP - General Internal Medicine 10/11/11 Accountant Property Relationship Specialty Start Date End Date Back, MD Shyam [address] [place] [address] PCP - General Internal Medicine 10/11/11 Accountant Property Relationship Specialty Start Date End Date Back, MD Shyam [address] [place] [address] PCP - General Internal Medicine 10/11/11 Accountant Property Relationship Specialty Start Date End Date Back, MD Shyam [address] [place] [address] PCP - General Internal Medicine 10/11/11 Ordered [...] BE BASED ON THE PRIMARY CLINICAL RECORDS. [facility] [address] [facility]. provides no warranty or guarantee of the accuracy or completeness of information in this document.
== END 2023-09-03 10:08 | disposition home or self-care (01) ==
LOC: RAD 10:07
PROVIDERS: Visit Provider Podiatrist Foot & Ankle Surgery
DX: M79.671 Pain in right foot (principal); Z98.890 Other specified postprocedural states
CPT/HCPCS: 73630

== ENCOUNTER 2023-10-08 08:58 | Outpatient (OUT) | payer BC, SELFPAY ==
--- NOTE | 2023-10-08 | XR_ITS ---
The [address] [address] Patient Name: DELILAH MANCUSO MRN: [id number] date: 1980 Sex: F Assigned Patient Location: [facility] Current Patient Location: [facility] Accession/Order Number: [id number] Exam Date: 10/08/2023 09:04 Report Date: 10/08/2023 15:27 At the request of: DANIE AYERS Procedure: XR foot RT min 3V PROCEDURE: XR foot RT min 3V HISTORY: RIGHT FOOT PAIN COMPARISON: XR foot right 09/03/2023 FINDINGS: BONES:Prior anterior and posterior calcaneal osteotomy with wedge placement within the anterior osteotomy. Osteotomy and wedge placement within the medial cuneiform. No bone fracture or dislocation. Mild flattening of plantar arch. SOFT TISSUES:No visible soft tissue swelling. EFFUSION:None visible. OTHER: Negative. XR/XR foot RT min 3V IMPRESSION: 1. Stable surgical changes without is of hardware failure change in alignment. 2. Interval removal of posterior calcaneal skin adrien. Electronically authenticated by: MILES WILKINS Date: 10/08/2023 15:27
--- OUTSIDE RECORDS SUMMARY | 2023-10-08 09:08 | XMS_ITS | CCD ---
Author Name Unknown Address [id number] [place] [address] Organization [facility] Care Team Providers Care Rib Chopper Name Role Phone BACK, SHYAM Unavailable Unavailable BACK, SHYAM Unavailable Unavailable Back, Shyam Primary Care Provider Back Shyam RODRIGUEZ Primary Care Provider MD RAMIREZ GRIMALDO Emergency Provider MD JÚNIOR VALADEZ Admit Provider MD JÚNIOR VALADEZ Attending Provider Back Shyam RODRIGUEZ Primary Care Provider [phone] Back Shyam RODRIGUEZ Primary Care Provider Back Shyam RODRIGUEZ Primary Care Provider Back Shyam RODRIGUEZ Primary Care Provider BACK, SHYAM Primary Care Unavailable DANIE AYERS Referring Unavailable BACK, SHYAM Primary Care Unavailable DANIE AYERS Referring Unavailable BACK, SHYAM Primary Care Unavailable BACK, SHYAM Referring Unavailable BACK, SHYAM Primary Care Unavailable DANIE AYERS Referring Unavailable BACK, SHYAM Primary Care Unavailable DANIE AYERS Referring Unavailable HIGHLANDER, DANIE Dickens Referring Unavailable BACK, SHYAM Primary Care Unavailable DANIE AYERS Referring Unavailable BACK, SHYAM Primary Care Unavailable HIGHLARAM, DANIE Dickens Referring Unavailable BACK, SHYAM Primary Care Unavailable KEO VALDEZ Attending Unavailabl e KEO VALDEZ Referring Unavailabl e BACK, SHYAM Primary Care Unavailable BACK, SHYAM Primary Care Unavailable BACK, SHYAM Referring Unavailable BACK, SHYAM Primary Care Unavailable DANIE AYERS Referring Unavailable BACK, SHYAM Primary Care Unavailable DANIE AYERS Referring Unavailable DANIE AYERS Referring Unavailable BACK, SHYAM [...] sources) Amoxicillin Drug Allergy 4 Nausea Only [place], [place] (15 sources) Chlorine Propensity to adverse reactions to drug 3 Hives [place], [place] (11 sources) Lavender Oil Propensity to adverse reactions to drug 1 Shortness Of Breath [facility] Medications Current Medications Medication Drug Class(es) Dates Sig (Normalized) Sig (Original) [id number] 200 actuat albuterol 0.09 mg/actuat metered dose [...] oral tablet (7 sources) alpha-Adrenergic Agonist, Uncompetitive N-jzfpyb-B-aspartat e Receptor Antagonist, Sigma-1 Agonist Start: 04-23-2021 [...] tablet 1 11/20/2021 Active Start: 04-17-2021 lisinopril (SC INIVIL;ZESTRIL) 20 MG tablet Indications: Benign essential HTN TAKE 1 TABLET DAILY 90 tablet 1 04/17/2021 Active Start: 11-09-2020 lisinopril (SC INIVIL;ZESTRIL) 20 MG tablet Indications: Benign essential HTN TAKE 1 TABLET DAILY 90 tablet 1 11/09/2020 Active Start: 08-17-2019 lisinopril (SC INIVIL;ZESTRIL) 20 MG tablet Indications: Benign essential [...] source) Palpitations; Translations: [Palpitations] Episodic Diabetes mellitus without complication (9 sources) Type 2 diabetes mellitus without complications; Translations: [Type 2 diabetes mellitus] Onset: 12-20-2014 Resolved: 12-22-2015 12-22-2015 Chronic Disorders of lipid metabolism (20 sources) Mixed hyperlipidemia; Translations: [Mixed hyperlipidemia] Onset: 11-19-2013 11-19-2013 Chronic Essential hypertension (20 sources) Essential (primary) hypertension; Translations: [Benign essential hypertension] Onset: 11-20-2011 11-20-2011 Chronic Immunizations and screening for infectious disease (4 sources) Suspected disease caused by 2019-nCoV; Translations: [Suspected COVID-19 virus infection] Episodic Other nutritional; endocrine; and metabolic disorders [...] Date Documented Da te Episodic/Chronic Diabetes mellitus with complications (20 sources) Type II diabetes mellitus uncontrolled; Translations: [Type 2 diabetes mellitus with hyperglycemia] Onset: 12-20-2014 Resolved: 08-23-2022 05-03-2020 Chronic Diabetes mellitus without complication (15 sources) Hyperglycemia; Translations: [Hyperglycemia, unspecified] Onset: 07-28-2013 Resolved: 06-01-2014 06-01-2014 Episodic Other connective tissue disease (3 sources) Posterior tibial tendinitis, right leg; Translations: [Posterior tibial tendinitis, right leg] Onset: 03-11-2023 Episodic Residual codes; unclassified (13 sources) History of abdominal hysterectomy; Translations: [Acquired absence of both cervix and uterus] Onset: 01-15-2020 01-18-2020 Episodic Results Test Name Value Interpretation Reference Range Facility Hemoglobin A1Con 09-08-2023 Glucose [Mass/Vol] 128 mg/dL Normal [facility] Comment on above: Result Comment: The ADA and AACC recommend providing the estimated average glucose result to permit better patient understanding of their HBA1c result. Performed By: #### L IPR, GLYHGB #### [facility] [address] [place] [address] [employer] Developer: Virgil Shelton MD #### RASHAWN, CP #### [facility] [address] [place] [address] [employer] Developer: Leonides Brunner MD HbA1c (Bld) [Mass fraction] 6.1 % High 4.0-6.0 [facility] Comment on above: Performed By: #### L IPR, GLYHGB #### [address] [address] [employer] Developer: Virgil Shelton MD #### RASHAWN, CP #### [facility] [address] [place], [place] [phone] [employer] Developer: Leonides Brunner MD Lipid Profileon 09-08-2023 Cholesterol [Mass/Vol] 206 mg/dL High 0-199 [facility] Comment on above: Result Comment: Cholesterol Guidelines: <200 Desirable 200-240 Borderline >240 Undesirable Performed By: #### L IPR, GLYHGB #### [address] [place] [address] [employer] Developer: Virgil Shelton MD #### ABILIOAST, CP #### [facility] [address] [place], [place] [id number] [employer] Developer: Leonides Brunner MD Cholesterol in HDL [Mass/Vol] 60 mg/dL Normal >40 [facility] Comment on above: Result Comment: HDL Guidelines: <40 Undesirable 40-59 Borderline >59 Desirable Performed By: #### L IPR, GLYHGB #### [address] [address] [employer] Developer: Virgil Shelton MD #### RASHAWN, CP #### [facility] [address] [place], [place] [phone] [employer] Developer: Leonides Brunner MD Cholesterol in LDL [Mass/Vol] 107 mg/dL High 0-100 [facility] Comment on above: Result Comment: LDL Guidelines: <100 Desirable 100-129 Near to/above Desirable 130-159 Borderline >159 Undesirable Direct (measured) LDL and calculated LDL are not interchangeable tests. Performed By: #### L IPR, GLYHGB #### [facility] [address] [facility] [place], [place] [id number] [employer] Developer: Virgil Shelton MD #### RASHAWN, CP #### [facility] [address] [place], [place] [id number] [employer] Developer: Leonides Brunner MD Cholesterol in VLDL [Mass/Vol] 39 mg/dL Normal [facility] Comment on above: Performed By: #### L IPR, GLYHGB #### [address] [place], [place] [phone] [employer] Developer: Virgil Shelton MD #### RASHAWN, CP #### [facility] [address] [place], [place] [phone] [employer] Developer: Leonides Brunner MD Cholesterol.total/Ch olesterol in HDL [Mass ratio] 3.0 {ratio} Normal [facility] Comment on above: Performed By: #### L IPR, GLYHGB #### [facility] [address] [place] [address] [employer] Developer: Virgil Shelton MD #### RASHAWN, CP #### [facility] [address] [place], [place] [phone] [employer] Developer: Leonides Brunner MD Triglyceride [Mass/Vol] 194 mg/dL High <150 [facility] Comment on above: Result Comment: Triglyceride Guidelines: <150 Desirable 150-199 Borderline 200-499 High >499 Very high Based on AHA Guidelines for fasting triglyceride, May 2012. Performed By: #### L IPR, GLYHGB #### [facility] [address] [place] [address] [employer] Developer: Virgil Shelton MD #### ABILIOAST, CP #### [facility] [address] [place] [address] [employer] Developer: Leonides Brunner MD Comp Metabolic Profon 2023 Albumin [Mass/Vol] 4.0 g/dL Normal 3.5-5.2 [facility] Comment on above: Performed By: #### L IPR, GLYHGB #### [address] [address] [employer] Developer: Virgil Shelton MD #### RASHAWN, CP #### [facility] [address] [place], [place] [phone] [employer] Developer: Leonides Brunner MD Alkaline Phos 77 U/L Normal 35-104 [facility] Comment on above: Performed By: #### L IPR, GLYHGB #### [address] [place] [address] [employer] Developer: Virgil Shelton MD #### RASHAWN, CP #### [facility] [address] [place], [place] [phone] [employer] Developer: Leonides Brunner MD ALT [Catalytic activity/Vol] 36 U/L High 5-33 [facility] Comment on above: Performed By: #### L IPR, GLYHGB #### [facility] [address] [place] [address] [employer] Developer: Virgil Shelton MD #### ZFAST, CP #### [facility] [address] [place] [address] [employer] Developer: Leonides Brunner MD Anion gap [Moles/Vol] 15 mmol/L Normal 9-17 [facility] Comment on above: Performed By: #### L IPR, GLYHGB #### [facility] [address] [place] [address] [employer] Developer: Virgil Shelton MD #### RASHAWN, CP #### [facility] [address] [place] [address] [employer] Developer: Leonides Brunner MD AST [Catalytic activity/Vol] 15 U/L Normal <32 [facility] Comment on above: Performed By: #### L IPR, GLYHGB #### [facility] [address] [place] [address] [employer] Developer: Virgil Shelton MD #### RASHAWN, CP #### [facility] [address] [place] [address] [employer] Developer: Leonides Brunner MD Bilirubin [Mass/Vol] 0.2 mg/dL Low 0.3-1.2 [facility] Comment on above: Performed By: #### L IPR, GLYHGB #### [facility] [address] [place] [address] [employer] Developer: Virgil Shelton MD #### RASHAWN, CP #### [facility] [address] [place] [address] [employer] Developer: Leonides Brunner MD BUN/CRE Ratio 24 High 9-20 [facility] Comment on above: Performed By: #### L IPR, GLYHGB #### [facility] [address] [place] [address] [employer] Developer: Virgil Shelton MD #### RASHAWN, CP #### [facility] [address] [place] [address] [employer] Developer: Leonides Brunner MD Calcium [Mass/Vol] 8.9 mg/dL Normal 8.6-10.4 [facility] Comment on above: Performed By: #### L IPR, GLYHGB #### [address] [place] [address] [employer] Developer: Virgil Shelton MD #### RASHAWN, CP #### [facility] [address] [place], [place] [phone] [employer] Developer: Leonides Brunner MD Chloride [Moles/Vol] 98 mmol/L Normal 98-107 [facility] Comment on above: Performed By: #### L IPR, GLYHGB #### [address] [place] [address] [employer] Developer: Virgil Shelton MD #### RASHAWN, CP #### [facility] [address] [place], [place] [id number] [employer] Developer: Leonides Brunner MD CO2 [Moles/Vol] 21 mmol/L Normal 20-31 [facility] Comment on above: Performed By: #### L IPR, GLYHGB #### [address] [phone] [employer] Developer: Virgil Shelton MD #### RASHAWN, CP #### [facility] [address] [place], [place] 8[address] [employer] Developer: Leonides Brunner MD Creatinine [Mass/Vol] 0.5 mg/dL Normal 0.5-0.9 [facility] Comment on above: Performed By: #### L IPR, GLYHGB #### [address] [place], [place] [phone] [employer] Developer: Virgil Shelton MD #### RASHAWN, CP #### [facility] [address] [place] [address] [employer] Developer: Leonides Brunner MD GFR/1.73 sq M.predicted among non-blacks MDRD (S/P/Bld) [Vol rate/Area] mL/min/{1.73_m2} Normal >60 [facility] Comment on above: Result Comment: [...] affects renal tubular secretion. Performed By: #### L IPR, GLYHGB #### [address] [id number] [employer] Developer: Virgil Shelton MD #### ZFAST, CP #### [facility] [address] [place] [address] [employer] Developer: Leonides Brunner MD Glucose [Mass/Vol] 133 mg/dL High 70-99 [facility] Comment on above: Performed By: #### L IPR, GLYHGB #### [address] [phone] [employer] Developer: Virgil Shelton MD #### ZFAST, CP #### [facility] [address] [place] [address] [employer] Developer: Leonides Brunner MD Potassium [Moles/Vol] 3.7 mmol/L Normal 3.7-5.3 [facility] Comment on above: Performed By: #### L IPR, GLYHGB #### [address] [id number] [employer] Developer: Virgil Shelton MD #### ZFAST, CP #### [facility] [address] [place], [place] [id number] [employer] Developer: Leonides Brunner MD Protein [Mass/Vol] 6.6 g/dL Normal 6.4-8.3 [facility] Comment on above: Performed By: #### L IPR, GLYHGB #### [address] [id number] [employer] Developer: Virgil Shelton MD #### ZFAST, CP #### [facility] [address] [place] [address] [employer] Developer: Leonides Brunner MD Sodium [Moles/Vol] 134 mmol/L Low 135-144 [facility] Comment on above: Performed By: #### L IPR, GLYHGB #### [address] [place], [place] [phone] [employer] Developer: Virgil Shelton MD #### ZFAST, CP #### [facility] [address] [place] [address] [employer] Developer: Leonides Brunner MD Urea nitrogen [Mass/Vol] 12 mg/dL Normal - [facility] Comment on above: Performed By: #### L IPR, GLYHGB #### [address] [id number] [employer] Developer: Virgil Shelton MD #### ZFAST, CP #### [facility] [address] [place] [address] [employer] Developer: Leonides Brunner MD Patient fasting?on 4 Patient fasting? YES Normal [facility] Comment on above: Performed By: #### L IPR, GLYHGB #### [address] [phone] [employer] Developer: Virgil Shelton MD #### ZFAST, CP #### [facility] [address] [place] [address] [employer] Developer: Leonides Brunner MD MRI ANKLE RIGHT WO CONTRASTo n 03-12-2023 [...] Lenny Mane MD 03/12/23 Final result Normal [facility] Comp Metabolic Profon 2022 Albumin [Mass/Vol] 4.1 g/dL Normal 3.5-5.2 [facility] Comment on above: Performed By: #### Makayla FAST, CP #### [facility] [address] [place], [place] [phone] [employer] Developer: Leonides Brunner MD #### LIPR, GLYHGB #### [facility] [address] [place] [address] [employer] Developer: Virgil Shelton MD Alkaline Phos 76 U/L Normal 35-104 [facility] Comment on above: Performed By: #### Makayla FAST, CP #### [facility] [address] [place], [place] [phone] [employer] Developer: Leonides Brunner MD #### LIPR, GLYHGB #### [address] [place] [address] [employer] Developer: Virgil Shelton MD ALT [Catalytic activity/Vol] 22 U/L Normal 5-33 [facility] Comment on above: Performed By: #### Makayla FAST, CP #### [facility] [address] [place] [address] [employer] Developer: Leonides Brunner MD #### LIPR, GLYHGB #### [facility] [address] [place] [address] [employer] Developer: Virgil Shelton MD Anion gap [Moles/Vol] 10 mmol/L Normal 9-17 [facility] Comment on above: Performed By: #### Makayla FAST, CP #### [facility] [address] [place] [address] [employer] Developer: Leonides Brunner MD #### LIPR, GLYHGB #### [address] [address] [employer] Developer: Virgil Shelton MD AST [Catalytic activity/Vol] 14 U/L Normal <32 [facility] Comment on above: Performed By: #### Makayla FAST, CP #### [facility] [address] [place], [place] 8[address] [employer] Developer: Leonides Brunner MD #### LIPR, GLYHGB #### [address] [phone] [employer] Developer: Virgil Shelton MD Bilirubin [Mass/Vol] 0.4 mg/dL Normal 0.3-1.2 [facility] Comment on above: Performed By: #### Makayla FAST, CP #### [facility] [address] [place], [place] [phone] [employer] Developer: Leonides Brunner MD #### MARINA, GLYHGB #### [address] [phone] [employer] Developer: Virgil Shelton MD BUN/CRE Ratio 25 High 9-20 [facility] Comment on above: Performed By: #### Makayla FAST, CP #### [facility] [address] [place], [place] [phone] [employer] Developer: Leonides Brunner MD #### LIPBita, GLYHGB #### [address] [phone] [employer] Developer: Virgil Shelton MD Calcium [Mass/Vol] 9.1 mg/dL Normal 8.6-10.4 [facility] Comment on above: Performed By: #### Makayla FAST, CP #### [facility] [address] [place], [place] 2180290 [employer] Developer: Leonides Brunner MD #### LIPR, GLYHGB #### [address] [id number] [employer] Developer: Virgil Shelton MD Chloride [Moles/Vol] 104 mmol/L Normal 98-107 [facility] Comment on above: Performed By: #### Z FAST, CP #### [facility] [address] [place], [place] [phone] [employer] Developer: Leonides Brunner MD #### LIPR, GLYHGB #### [facility] [address] [place], [place] [phone] [employer] Developer: Virgil Shelton MD CO2 [Moles/Vol] 23 mmol/L Normal 20-31 [facility] Comment on above: Performed By: #### Z FAST, CP #### [facility] [address] [place], [place] [id number] [employer] Developer: Leonides Brunner MD #### LIPR, GLYHGB #### [facility] [address] [place], [place] [phone] [employer] Developer: Virgil Shelton MD Creatinine [Mass/Vol] 0.6 mg/dL Normal 0.5-0.9 [facility] Comment on above: Performed By: #### Z FAST, CP #### [facility] [address] [place], [place] 2266[address] [employer] Developer: Leonides Brunner MD #### LIPR, GLYHGB #### [address] [place], [place] [phone] [employer] Developer: Virgil Shelton MD GFR/1.73 sq M.predicted among non-blacks MDRD (S/P/Bld) [Vol rate/Area] mL/min/{1.73_m2} Normal >60 [facility] Comment on above: Result Comment: [...] Performed By: #### Z FAST, CP #### [facility] [address] [place], [place] [id number] [employer] Developer: Leonides Brunner MD #### LIPR, GLYHGB #### [facility] [address] [place] [address] [employer] Developer: Virgil Shelton MD Glucose [Mass/Vol] 145 mg/dL High 70-99 [facility] Comment on above: Performed By: #### Z FAST, CP #### [facility] [address] [place] [address] [employer] Developer: Leonides Brunner MD #### LIPR, GLYHGB #### [facility] [address] [place], [place] [phone] [employer] Developer: Virgil Shelton MD Potassium [Moles/Vol] 4.0 mmol/L Normal 3.7-5.3 [facility] Comment on above: Performed By: #### Makayla FAST, CP #### [facility] [address] [place], [place] 8266390 [employer] Developer: Leonides Brunner MD #### LIPR, GLYHGB #### [facility] [address] [place], [place] 116[address] [employer] Developer: Virgil Shelton MD Protein [Mass/Vol] 6.9 g/dL Normal 6.4-8.3 [facility] Comment on above: Performed By: #### Z FAST, CP #### [facility] [address] [place], [place] [id number] [employer] Developer: Leonides Brunner MD #### LIPR, GLYHGB #### [facility] [address] [place] [address] [employer] Developer: Virgil Shelton MD Sodium [Moles/Vol] 137 mmol/L Normal 135-144 [facility] Comment on above: Performed By: #### Z FAST, CP #### [facility] [address] [place], [place] [phone] [employer] Developer: Leonides Brunner MD #### LIPR, GLYHGB #### [facility] [address] [place] [address] [employer] Developer: Virgil Shelton MD Urea nitrogen [Mass/Vol] 15 mg/dL Normal 6-20 [facility] Comment on above: Performed By: #### Z FAST, CP #### [facility] [address] [place], [place] 1970[address] [employer] Developer: Leonides Brunner MD #### LIPR, GLYHGB #### [address] [place] [address] [employer] Developer: Virgil Shelton MD Hemoglobin A1Con 03-01-2023 Glucose [Mass/Vol] 146 mg/dL Normal [facility] Comment on above: Result Comment: The ADA and AACC recommend providing the estimated average glucose result to permit better patient understanding of their HBA1c result. Performed By: #### Makayla FAST, CP #### [facility] [address] [place], [place] [phone] [employer] Developer: Leonides Brunner MD #### LIPR, GLYHGB #### [facility] [address] [place], [place] 2394[address] [employer] Developer: Virgil Shelton MD HbA1c (Bld) [Mass fraction] 6.7 % High 4.0-6.0 [facility] Comment on above: Performed By: #### Z FAST, CP #### [facility] [address] [place], [place] [address] [employer] Developer: Leonides Brunner MD #### LIPR, GLYHGB #### [facility] [address] [place] [address] [employer] Developer: Virgil Shelton MD Lipid Profileon 03-01-2023 Cholesterol [Mass/Vol] 199 mg/dL Normal <200 [facility] Comment on above: Result Comment: Cholesterol Guidelines: <200 Desirable 200-240 Borderline >240 Undesirable Performed By: #### Makayla FAST, CP #### [facility] [address] [place], [place] [id number] [employer] Developer: Leonides Brunner MD #### LIPR, GLYHGB #### [facility] [address] [facility] [place], [place] [address] [employer] Developer: Virgil Shelton MD Cholesterol in HDL [Mass/Vol] 47 mg/dL Normal >40 [facility] Comment on above: Result Comment: HDL Guidelines: <40 Undesirable 40-59 Borderline >59 Desirable Performed By: #### Makayla FAST, CP #### [facility] [address] [place], [place] [id number] [employer] Developer: Leonides Brunner MD #### LIPBita, GLYHGB #### [facility] [place] [id number] [employer] Developer: Virgil Shelton MD Cholesterol in LDL [Mass/Vol] 100 mg/dL Normal 0-130 [facility] Comment on above: Result Comment: LDL Guidelines: <100 Desirable 100-129 Near to/above Desirable 130-159 Borderline >159 Undesirable Direct (measured) LDL and calculated LDL are not interchangeable tests. Performed By: #### Makayla FAST, CP #### [facility] [address] [place], [place] [phone] [employer] Developer: Leonides Brunner MD #### LIPR, GLYHGB #### [facility] [address] [place], [place] [address]110[address] [employer] Developer: Virgil Shelton MD Cholesterol.total/Ch olesterol in HDL [Mass ratio] 4.2 {ratio} Normal <5 [facility] Comment on above: Performed By: #### Makayla FAST, CP #### [facility] [address] [place], [place] [phone] [employer] Developer: Leonides Brunner MD #### LIPR, GLYHGB #### [facility] [address] [place] [address] [employer] Developer: Virgil Shelton MD Triglyceride [Mass/Vol] 259 mg/dL High <150 [facility] Comment on above: Result Comment: Triglyceride Guidelines: <150 Desirable 150-199 Borderline 200-499 High >499 Very high Based on AHA Guidelines for fasting triglyceride, May 2012. Performed By: #### Z FAST, CP #### [facility] [address] [place] [address] [employer] Developer: Leonides Brunner MD #### LIPR, GLYHGB #### [address] [place] [address] [employer] Developer: Virgil Shelton MD Microalb.,Random Uron 2022 Creatinine [Mass/Vol] 134.1 mg/dL Normal 28.0-217.0 [facility] Comment on above: Performed By: #### U RNMAB #### [address] [address] [employer] Developer: Vigril Shelton MD Microalb/Creat Ratio Can not be calculated Normal <25 [facility] Comment on above: Performed By: #### U RNMAB #### [address] [address] [employer] Developer: Virgil Shelton MD Microalbumin conc. <12 Normal <21 [facility] [facility] Comment on above: Performed By: #### U RNMAB #### [facility] [address] [place] [address] [employer] Mag[employer] Developer: Virgil Shelton MD Patient fasting?on 3 Patient fasting? yes Normal [facility] Comment on above: Performed By: #### Z FAST, CP #### [facility] [address] [place] [address] [employer] Developer: Leonides Brunner MD #### LIPR, GLYHGB #### [facility] [address] [place] [address] Php Mag[employer] Developer: Virgil Shelton MD [facility] Metabolic Pane [facility] 08-22-2022 Albumin [Mass/Vol] 3.9 g/dL 3.5 - 5.2 g/dL [facility] ALP (Bld) [Catalytic activity/Vol] 73 U/L 35 - 104 U/L [facility] ALT [Catalytic activity/Vol] 19 U/L 5 - 33 U/L [facility] Anion gap [Moles/Vol] 10 mmol/L 9 - 17 mmol/L [facility] AST [Catalytic activity/Vol] 12 U/L NINF - 32 U/L [facility] Bilirubin [Mass/Vol] 0.3 mg/dL 0.3 - 1 .2 mg/dL [facility] Calcium [Mass/Vol] 8.6 mg/dL 8.6 - 10. 4 mg/dL [facility] Chloride [Moles/Vol] 101 mmol/L 98 - 10 7 mmol/L [facility] CO2 [Moles/Vol] 23 mmol/L 20 - 31 mmol/L [facility] Creatinine [Mass/Vol] 0.63 mg/dL 0.50 - 0.90 mg/dL [facility] GFR/1.73 sq M.predicted MDRD (S/P/Bld) [Vol rate/Area] - PINF [facility] Comment on above: Effective May 21, [...] 141 mg/dL High 70 - 99 mg/dL [facility] Interpretation and review of laboratory results Abnormal [facility] Potassium [Moles/Vol] 4.2 mmol/L 3.7 - 5.3 mmol/L [facility] Protein [Mass/Vol] 6.6 g/dL 6.4 - 8.3 g/dL [facility] Sodium [Moles/Vol] 134 mmol/L Low 135 - 144 mmol/L [facility] Urea nitrogen (BldV) [Mass/Vol] 11 mg/dL 6 - 20 mg/dL [facility] Urea nitrogen/Creatinine (Bld) [Mass ratio] 17 9 - 20 [facility] HIV Screenon 08-22-2022 HIV Ag/Ab Non-Reactive NONREACTIVE [facility] Comment on above: No laboratory eviden ce of HIV infection. If acute HIV infection is suspected, consider testing for HIV-1 RNA. [facility] Hemoglobin A1Con 08-22-2022 Glucose [Mass/Vol] 140 mg/dL [facility] Comment on above: The ADA and AACC rec ommend providing the estimated average glucose result to permit better patient understanding of their HBA1c result. HbA1c (Bld) [Mass fraction] 6.5 % High 4.0 - 6.0 % [facility] Interpretation and review of laboratory results Abnormal [facility] Hepatitis C Antibodyon 08-22 Hepatitis C Ab Non-Reactive NONREACTIVE [facility] Comment on above: The hepatitis C procedure [...] recommended by ordering HCV RNA by PCR. [facility] Lipid Panelon 08-22-2022 Cholesterol [Mass/Vol] 209 mg/dL High NINF - 200 mg/dL [facility] Comment on above: Cholesterol Guidelines: <200 Desirable 200-240 Borderline >240 Undesirable Cholesterol in HDL [Mass/Vol] 49 mg/dL 40 - PINF mg/dL [facility] Comment on above: HDL Guidelines: <40 Undesirable 40-59 Borderline >59 Desirable Cholesterol in LDL [Mass/Vol] 105 mg/dL 0 - 130 mg/dL [facility] Comment on above: LDL Guidelines: <100 Desirable 100-129 Near to/above Desirable 130-159 Borderline >159 Undesirable Direct (measured) LDL and calculated LDL are not interchangeable tests. Cholesterol.total/Ch olesterol in HDL [Mass ratio] 4.3 {ratio} NINF - 5 [facility] [employer] Interpretation and review of laboratory results Abnormal [facility] Triglyceride [Mass/Vol] 275 mg/dL High NINF - 150 mg/dL [facility] [employer] Comment on above: Triglyceride Guidelines: <150 Desirable 150-199 Borderline 200-499 High >499 Very high Based on AHA Guidelines for fasting triglyceride, May 2012. [facility] [employer] Patient Fasting?on 3 Patient Fasting? YES [facility] [employer] [facility] APTTon 04-14-2022 aPTT Coag (Bld) [Time] 28.2 s [facility] [employer] Comment on above: IV Heparin Therapy Range: 62.0-94.0 CBC with Auto Differentialon 04-14-2022 Absolute Eos # 0.00 [employer] Absolute Lymph # 0.80 Low [facility] [employer] Absolute [place] # 0.70 [facility] [employer] Basophils (Bld) [#/Vol] 0.00 10*3/uL [facility] Basophils/100 WBC (Bld) 0 % 0 - 2 % [facility] Differential Type YES [facility] Eosinophils/100 WBC (Bld) 0 % 0 - 5 % [facility] Hematocrit (Bld) [Volume fraction] 41.3 % 36 - 46 % [facility] Hemoglobin (Bld) [Mass/Vol] 14.1 g/dL 12 - 16 g/dL [facility] Interpretation and review of laboratory results Abnormal [facility] Lymphocytes/100 WBC (Bld) 7 % Low 15 - 40 % [facility] [employer] MCH (RBC) [Entitic mass] 28.4 pg 26 - 34 pg [facility] MCHC (RBC) [Mass/Vol] 34.1 g/dL 31 - 37 g/dL [facility] MCV (RBC) [Entitic vol] 83.5 fL 80 - 100 fL [facility] Monocytes/100 WBC (Bld) 6 % 4 - 8 % [facility] Platelet distribution width (Bld) [Ratio] 13.4 % 12.1 - 15.2 % [facility] Platelets (Bld) [#/Vol] 276 10*3/uL [facility] RBC (Bld) [#/Vol] 4.95 10*6/uL 4 - 5.2 m/uL [facility] Segmented neutrophils/100 WBC (Bld) 87 % High 47 - 75 % [facility] Segs Absolute 10.60 High [facility] WBC (Bld) [#/Vol] 12.1 10*3/uL High [facility] COVID-19, Rapidon 04-14-2022 Interpretation and review of laboratory results Abnormal [facility] SARS-CoV-2 (COVID-19) RNA PINEDA+probe Ql (Unsp spec) Detected Abnormal Not Detected [facility] Comment on above: Rapid NAAT: The [...] this assay. Fact sheet for Healthcare Providers: https://www.fda.gov/media/047169/download Fact sheet for Patients: https://www.fda.gov/media/161542/download Methodology: Isothermal Nucleic Acid Amplification Results reported to the appropriate Health Department Specimen Description .NASOPHARYNGEAL SWAB [facility] Comprehensive Metabolic Pane nadia 04-14-2022 Albumin [Mass/Vol] 4.2 g/dL 3.5 - 5.2 g/dL [facility] ALP (Bld) [Catalytic activity/Vol] 90 U/L 35 - 104 U/L [facility] ALT [Catalytic activity/Vol] 21 U/L 5 - 33 U/L [facility] Anion gap [Moles/Vol] 14 mmol/L 9 - 17 mmol/L [facility] AST [Catalytic activity/Vol] 14 U/L NINF - 32 U/L [facility] Bilirubin [Mass/Vol] 0.29 mg/dL Low 0.3 - 1 .2 mg/dL [facility] Calcium [Mass/Vol] 9.2 mg/dL 8.6 - 10. 4 mg/dL [facility] Chloride [Moles/Vol] 102 mmol/L 98 - 10 7 mmol/L [facility] CO2 [Moles/Vol] 21 mmol/L 20 - 31 mmol/L [facility] Creatinine [Mass/Vol] 0.77 mg/dL 0.5 - 0.9 mg/dL [facility] Free PSA/Total PSA [Mass fraction] 7.2 g/dL 6.4 - 8.3 g/dL [facility] GFR >60 60 - PI NF mL/min [facility] GFR Non- >60 60 - PINF mL/min [facility] GFR/1.73 sq M.predicted MDRD (S/P/Bld) [Vol rate/Area] [facility] Comment on above: Average GFR for 30-3 9 years old: 107 mL/min/1.73sq m Chronic Kidney Disease: <60 mL/min/1.73sq m Kidney failure: <15 mL/min/1.73sq m eGFR calculated using average adult body mass. Additional eGFR calculator available at: http://www.feedPack.[employer]/multiple_crcl_2012.htm Glucose [Mass/Vol] 181 mg/dL High 70 - 99 mg/dL [facility] Interpretation and review of laboratory results Abnormal [facility] Potassium [Moles/Vol] 3.8 mmol/L 3.7 - 5.3 mmol/L [facility] Sodium [Moles/Vol] 137 mmol/L 135 - 144 mmol/L [facility] Urea nitrogen (BldV) [Mass/Vol] 9 mg/dL 6 - 20 mg/dL [facility] Urea nitrogen/Creatinine (Bld) [Mass ratio] 12 9 - 20 [facility] No Panel Informationon 04-14 [facility] Protime-INRon 04-14-2022 INR Coag (Bld) [Relative time] 1.0 {INR} [facility] Comment on above: Non-therapeutic Range: INR = 0.9-1.2 Therapeutic Range: Moderate Anticoagulant Intensity: INR = 2.0-3.0 High Anticoagulant Intensity: INR = 2.5-3.5 PT Coag (PPP) [Time] 13 s [facility] Troponinon 04-14-2022 Troponin, High Sensitivity ng/L 0 - 14 ng/L [facility] Comment on above: High Sensitivity Troponin values cannot be compared with other Troponin methodologies. Patients with high levels of Biotin oral intake (i.e >5mg/day) may have falsely decreased Troponin levels. Samples collected within 8 hours of biotin intake may require additional information for diagnosis. [facility] XR CHEST PORTABLEon 04-14-20 SARS-CoV-2 (COVID-19) Ab [...] acute change. IMPRESSION: Negative AP portable chest. [facility] Work Phone: Radiology Study observation (narrative) [facility] Work Phone: XR CHEST PORTABLEOrdered By: Mary Kay Macdonald on 04-14-2022 [facility] Work Phone: COVID-19, Rapidon 03-15-2022 SARS-CoV-2 (COVID-19) RNA PINEDA+probe Ql (Unsp spec) Not detected Not Detected [facility] Comment on above: Rapid NAAT: The [...] management decisions. Fact sheet for Healthcare Providers: https://www.fda.gov/media/062171/download Fact sheet for Patients: https://www.fda.gov/media/776686/download Methodology: Isothermal Nucleic Acid Amplification Specimen Description .NASOPHARYNGEAL SWAB [facility] Comprehensive Metabolic Pane nadia 01-20-2022 Albumin [Mass/Vol] 4.3 g/dL 3.5 - 5.2 g/dL [facility] ALP (Bld) [Catalytic activity/Vol] 90 U/L 35 - 104 U/L [facility] ALT [Catalytic activity/Vol] 32 U/L 5 - 33 U/L [facility] Anion gap [Moles/Vol] 13 mmol/L 9 - 17 mmol/L [facility] AST [Catalytic activity/Vol] 20 U/L <32 [facility] Bilirubin [Mass/Vol] 0.31 mg/dL 0.30 - 1.20 mg/dL [facility] Calcium [Mass/Vol] 9.3 mg/dL 8.6 - 10. 4 mg/dL [facility] Chloride [Moles/Vol] 100 mmol/L 98 - 10 7 mmol/L [facility] CO2 [Moles/Vol] 22 mmol/L 20 - 31 mmol/L [facility] Creatinine [Mass/Vol] 0.69 mg/dL 0.50 - 0.90 mg/dL [facility] Free PSA/Total PSA [Mass fraction] 7.0 g/dL 6.4 - 8.3 g/dL [facility] GFR >60 >60 mL/min [facility] GFR Non- >60 >60 mL/min [facility] GFR/1.73 sq M.predicted MDRD (S/P/Bld) [Vol rate/Area] [facility] Comment on above: Average GFR for 30-3 9 years old: 107 mL/min/1.73sq m Chronic Kidney Disease: <60 mL/min/1.73sq m Kidney failure: <15 mL/min/1.73sq m eGFR calculated using average adult body mass. Additional eGFR calculator available at: http://www.[employer]/multiple_crcl_2012.htm Glucose [Mass/Vol] 165 mg/dL High 70 - 99 mg/dL [facility] Interpretation and review of laboratory results Abnormal [facility] Potassium [Moles/Vol] 4.2 mmol/L 3.7 - 5.3 mmol/L [facility] Sodium [Moles/Vol] 135 mmol/L 135 - 144 mmol/L [facility] Urea nitrogen (BldV) [Mass/Vol] 14 mg/dL 6 - 20 mg/dL [facility] Urea nitrogen/Creatinine (Bld) [Mass ratio] 20 [facility] Lipid Panelon 01-20-2022 Cholesterol [Mass/Vol] 224 mg/dL High <200 [facility] Comment on above: Cholesterol Guidelines: <200 Desirable 200-240 Borderline >240 Undesirable Cholesterol in HDL [Mass/Vol] 51 mg/dL >40 [facility] Comment on above: HDL Guidelines: <40 Undesirable 40-59 Borderline >59 Desirable Cholesterol in LDL [Mass/Vol] 114 mg/dL 0 - 130 mg/dL [facility] Comment on above: LDL Guidelines: <100 Desirable 100-129 Near to/above Desirable 130-159 Borderline >159 Undesirable Direct (measured) LDL and calculated LDL are not interchangeable tests. Cholesterol.total/Ch olesterol in HDL [Mass ratio] 4.4 {ratio} <5 [facility] Interpretation and review of laboratory results Abnormal [facility] Triglyceride [Mass/Vol] 294 mg/dL High <150 [facility] Comment on above: Triglyceride Guidelines: <150 Desirable 150-199 Borderline 200-499 High >499 Very high Based on AHA Guidelines for fasting triglyceride, May 2012. [facility] Microalbumin, Uron 2 Albumin/Creatinine DL <= 20 mg/L (24H U) [Mass ratio] <12 <21 mg/L [facility] Albumin/Creatinine DL <= 20 mg/L (U) [Ratio] Can not be calculated <25 mcg/mg creat [facility] Creatinine [Mass/Vol] 129.3 mg/dL 28.0 - 217.0 mg/dL [facility] Patient Fasting?on 2 Patient Fasting? YES [facility] CBC with Auto Differentialon 01-01-2022 Absolute Eos # 0.30 [facility] th Absolute Lymph # 3.20 [facility] He alth Absolute [place] # 0.70 [facility] Basophils (Bld) [#/Vol] 0.00 10*3/uL [facility] Basophils/100 WBC (Bld) 0 % 0 - 2 % [facility] Differential Type YES [facility] ealth Eosinophils/100 WBC (Bld) 3 % 0 - 5 % [facility] Hematocrit (Bld) [Volume fraction] 43.7 % 36 - 46 % [facility] Hemoglobin.gastroint estinal spec 1 Ql (Stl) 14.7 g/dL 12.0 - 16.0 g/dL [facility] Interpretation and review of laboratory results Abnormal [facility] Lymphocytes/100 WBC (Bld) 25 % 15 - 40 % [facility] MCH (RBC) [Entitic mass] 28.0 pg 26 - 34 pg [facility] MCHC (RBC) [Mass/Vol] 33.6 g/dL 31 - 37 g/dL [facility] MCV (RBC) [Entitic vol] 83.2 fL 80 - 100 fL [facility] Monocytes/100 WBC (Bld) 6 % 4 - 8 % [facility] Platelet distribution width (Bld) [Ratio] 13.8 % 12.1 - 15.2 % [facility] Platelets (Bld) [#/Vol] 316 10*3/uL [facility] RBC (Bld) [#/Vol] 5.25 10*6/uL High 4.0 - 5.2 m/uL [facility] Segmented neutrophils/100 WBC (Bld) 66 % 47 - 75 % [facility] Segs Absolute 8.30 [facility] W[facility] (Bld) [#/Vol] 12.6 10*3/uL High [facility] CT ABDOMEN PELVIS W IV CONTR AST Additional Contrast? Noneon 01-01-2022 Hysterectomy. Normal appendix. [facility] CONSOLIDATED EXAMINATION: CT ABDOMEN PELVIS W IV [...] spleen, pancreas, gallbladder. Liver normal. No hernia. [facility] CONSOLIDATED Osman Harrington Jr., MD - 01/01/2022 [...] normal. No hernia. IMPRESSION: Hysterectomy. Normal appendix. [employer] Work Phone: Radiology Study observation (narrative) [employer] Phone: CT ABDOMEN PELVIS W IV CONTR AST Additional Contrast? NoneOrdered By: Osman Harrington on 01-01-2022 [employer] Work Phone: Comprehensive Metabolic Pane l w/ Reflex to MGon 01-01-2022 Albumin [Mass/Vol] 4.5 g/dL 3.5 - 5.2 g/dL [facility] ALP (Bld) [Catalytic activity/Vol] 93 U/L 35 - 104 U/L [facility] ALT [Catalytic activity/Vol] 25 U/L 5 - 33 U/L [facility] Anion gap [Moles/Vol] 15 mmol/L 9 - 17 mmol/L [facility] AST [Catalytic activity/Vol] 18 U/L <32 [facility] Bilirubin [Mass/Vol] 0.29 mg/dL Low 0.30 - 1.20 mg/dL [facility] Calcium [Mass/Vol] 9.6 mg/dL 8.6 - 10. 4 mg/dL [facility] Chloride [Moles/Vol] 98 mmol/L 98 - 10 7 mmol/L [facility] CO2 [Moles/Vol] 24 mmol/L 20 - 31 mmol/L [facility] Creatinine [Mass/Vol] 0.88 mg/dL 0.50 - 0.90 mg/dL [facility] Free PSA/Total PSA [Mass fraction] 7.6 g/dL 6.4 - 8.3 g/dL [facility] GFR >60 >60 mL/min [facility] [employer] GFR Non- >60 >60 mL/min [facility] GFR/1.73 sq M.predicted MDRD (S/P/Bld) [Vol rate/Area] [facility] Comment on above: Average GFR for 30-3 9 years old: 107 mL/min/1.73sq m Chronic Kidney Disease: <60 mL/min/1.73sq m Kidney failure: <15 mL/min/1.73sq m eGFR calculated using average adult body mass. Additional eGFR calculator available at: http://www.feedPack.[employer]/multiple_crcl_2011.htm Glucose [Mass/Vol] 157 mg/dL High 70 - 99 mg/dL [facility] Interpretation and review of laboratory results Abnormal [facility] Potassium [Moles/Vol] 4.1 mmol/L 3.7 - 5.3 mmol/L [facility] Sodium [Moles/Vol] 137 mmol/L 135 - 144 mmol/L [facility] Urea nitrogen (BldV) [Mass/Vol] 11 mg/dL 6 - 20 mg/dL [facility] Urea nitrogen/Creatinine (Bld) [Mass ratio] [address] [facility] Urinalysison 01-01-2022 Bilirubin Urine Negative NEGATIVE [facility] Color, UA Yellow Yellow [facility] Glucose, Ur 1000 mg/dL Abnormal NEGATIVE [facility] Interpretation and review of laboratory results Abnormal [facility] Ketones Ql (U) Negative NEGATIVE [facility] Leukocyte esterase Test strip Ql (U) Negative NEGATIVE [facility] Nitrite, Urine Negative NEGATIVE [facility] pH, UA 6.0 [facility] Protein, UA Negative NEGATIVE [facility] Specific [place], UA 1.020 [facility] Turbidity UA Clear Clear [facility] Urinalysis Comments [facility] Urine Hgb Negative NEGATIVE [facility] Urobilinogen, Urine Normal Normal [facility] Comprehensive Metabolic Pane nadia 07-24-2021 Albumin [Mass/Vol] 3.9 g/dL 3.5 - 5.2 g/dL [facility] Albumin/Globulin Ratio NOT REPORTED [facility] ALP (Bld) [Catalytic activity/Vol] 91 U/L 35 - 104 U/L [facility] ALT [Catalytic activity/Vol] 23 U/L 5 - 33 U/L [facility] Anion gap [Moles/Vol] 13 mmol/L 9 - 17 mmol/L [facility] AST [Catalytic activity/Vol] 16 U/L <32 [facility] Bilirubin [Mass/Vol] 0.23 mg/dL Low 0.30 - 1.20 mg/dL [facility] Calcium [Mass/Vol] 9.0 mg/dL 8.6 - 10. 4 mg/dL [facility] Chloride [Moles/Vol] 103 mmol/L 98 - 10 7 mmol/L [facility] CO2 [Moles/Vol] 22 mmol/L 20 - 31 mmol/L [facility] Creatinine [Mass/Vol] 0.65 mg/dL 0.50 - 0.90 mg/dL [facility] Free PSA/Total PSA [Mass fraction] 6.7 g/dL 6.4 - 8.3 g/dL [facility] GFR >60 >60 mL/min [facility] GFR Non- >60 >60 mL/min [facility] GFR/1.73 sq M.predicted MDRD (S/P/Bld) [Vol rate/Area] [facility] Comment on above: Average GFR for 30-3 9 years old: 107 mL/min/1.73sq m Chronic Kidney Disease: <60 mL/min/1.73sq m Kidney failure: <15 mL/min/1.73sq m eGFR calculated using average adult body mass. Additional eGFR calculator available at: http://www.[employer]/multiple_crcl_2012.htm GFR/1.73 sq M.predicted MDRD (S/P/Bld) [Vol rate/Area] NOT REPORTED [facility] Glucose [Mass/Vol] 147 mg/dL High 70 - 99 mg/dL [facility] Interpretation and review of laboratory results Abnormal [facility] Potassium [Moles/Vol] 3.9 mmol/L 3.7 - 5.3 mmol/L [facility] Sodium [Moles/Vol] 138 mmol/L 135 - 144 mmol/L [facility] Urea nitrogen (BldV) [Mass/Vol] 10 mg/dL 6 - 20 mg/dL [facility] Urea nitrogen/Creatinine (Bld) [Mass ratio] [address] [facility] Lipid Panelon 07-24-2021 Cholesterol [Mass/Vol] 189 mg/dL <200 [facility] Comment on above: Cholesterol Guidelines: <200 Desirable 200-240 Borderline >240 Undesirable Cholesterol in HDL [Mass/Vol] 54 mg/dL >40 [facility] Comment on above: HDL Guidelines: <40 Undesirable 40-59 Borderline >59 Desirable Cholesterol in LDL [Mass/Vol] 102 mg/dL 0 - 130 mg/dL [facility] Comment on above: LDL Guidelines: <100 Desirable 100-129 Near to/above Desirable 130-159 Borderline >159 Undesirable Direct (measured) LDL and calculated LDL are not interchangeable tests. Cholesterol in VLDL [Mass/Vol] NOT REPORTED High 1 - 30 mg/dL [facility] Cholesterol.total/Ch olesterol in HDL [Mass ratio] 3.5 {ratio} <5 [facility] Interpretation and review of laboratory results Abnormal [facility] Triglyceride [Mass/Vol] 164 mg/dL High <150 [facility] Comment on above: Triglyceride Guidelines: <150 Desirable 150-199 Borderline 200-499 High >499 Very high Based on AHA Guidelines for fasting triglyceride, May 2012. [facility] Patient Fasting?on Patient Fasting? yes Nicole Choudhury alth [facility] TSH with Reflexon 07-24-2021 TSH Qn 3.66 m[IU]/L [facility] VL DUP LOWER EXTREMITY VENOU S LEFTOrdered By: Keo Amaya on 05-08-2021 Radiology exam is complete. No Radiologist dictation. Please follow up with ordering provider. [facility] Work Phone: [facility] Work Phone: Absolute lymphocyte counton 04-27-2021 Lymphocytes Auto (Unsp spec) [#/Vol] 1.24 10*3/uL 0.90-4.00 [facility] Work Phone: Basophil percentageon 2020 Basophils/100 WBC (Unsp spec) 0.0 % [facility] Work Phone: Blood hemoglobin measurement (mass/volume)on 04-27-2021 Hemoglobin (Bld) [Mass/Vol] 13.0 g/dL 12.0-16.0 [facility] Work Phone: Body fluid alanine aminotran sferase measurement (enzymatic activity/volume)on 04-27-2021 ALT (Body fld) [Catalytic activity/Vol] 46 U/L 14-65 [facility] Work Phone: CBC With Auto Diff.on 2020 Basophils (Bld) [#/Vol] 0.00 10*3/uL Normal 0.00-0.30 [facility] Comment on above: Order Comment: Criti elan Result called to and read back by MERON BEE RN of er on 04/23/2021 1:04 PM by Maru El. Performed By: #### I [id number] #### [facility] (DEFAULT) [address] [place], [place] [address] Basophils/100 WBC (Bld) 0.0 % Normal [facility] Comment on above: Order Comment: Criti elan Result called to and read back by MERON BEE RN of er on 04/23/2021 1:04 PM by Maru El. Performed By: #### I [id number] #### [facility] (DEFAULT) [address] [place], [place] [address] Eosinophils (Bld) [#/Vol] 0.00 10*3/uL Normal 0.00-0.50 [facility] Comment on above: Order Comment: Criti elan Result called to and read back by MERON BEE RN of er on 04/23/2021 1:04 PM by Maru El. Performed By: #### I [id number] #### [facility] (DEFAULT) [address] [place] [id number] Eosinophils/100 WBC (Bld) 0.0 % Normal [facility] Comment on above: Order Comment: Criti elan Result called to and read back by MERON BEE RN of er on 04/23/2021 1:04 PM by Maru El. Performed By: #### I [id number] #### [facility] (DEFAULT) [address] [place] [id number] Erythrocyte distribution width (RBC) [Ratio] 12.9 % Normal 11.6-14.8 [facility] Comment on above: Order Comment: Criti elan Result called to and read back by MERON BEE RN of er on 04/23/2021 1:04 PM by Maru El. Performed By: #### I [id number] #### [facility] [facility] (DEFAULT) [address] [place] [address] Hematocrit (Bld) [Volume fraction] 37.9 % Normal 36.0-46.0 [facility] Comment on above: Order Comment: Criti elan Result called to and read back by MERON BEE RN of er on 04/23/2021 1:04 PM by Maru El. Performed By: #### I [id number] #### [facility] (DEFAULT) [address] [place] [address]35 Hemoglobin (Bld) [Mass/Vol] 13.0 g/dL Normal 12.0-16.0 [facility] Comment on above: Order Comment: Criti elan Result called to and read back by MERON BEE RN of er on 04/23/2021 1:04 PM by Maru El. Performed By: #### I [id number] #### [facility] (DEFAULT) [address] [place] [address] 87095 Ig% 0.5 % Normal 0.0-4.0 [facility] Comment on above: Order Comment: Criti elan Result called to and read back by MERON BEE RN of er on 04/23/2021 1:04 PM by Maru El. Performed By: #### I [id number] #### [facility] (DEFAULT) [address] [place] [address] 35641 Lymphocytes (Bld) [#/Vol] 1.24 10*3/uL Normal 0.90-4.00 [facility] Comment on above: Order Comment: Criti elan Result called to and read back by MERON BEE RN of er on 04/23/2021 1:04 PM by Maru El. Performed By: #### I [id number] #### [facility] (DEFAULT) [address] [place] [address] 88139 Lymphocytes/100 WBC (Bld) 21.5 % Normal [facility] Comment on above: Order Comment: Criti elan Result called to and read back by MERON BEE RN of er on 04/23/2021 1:04 PM by Maru El. Performed By: #### I [id number] #### [facility] (DEFAULT) [address] [place] [address] 55834 MCH (RBC) [Entitic mass] 28.7 pg Normal 26.0-34.0 [facility] Comment on above: Order Comment: Criti elan Result called to and read back by MERON BEE RN of er on 04/23/2021 1:04 PM by Maru El. Performed By: #### I [id number] #### [facility] (DEFAULT) [address] [place], [place] [address] MCHC (RBC) [Mass/Vol] 34.3 g/dL Normal 31.0-37.0 [facility] Comment on above: Order Comment: Criti elan Result called to and read back by MERON BEE RN of er on 04/23/2021 1:04 PM by Maru El. Performed By: #### I [id number] #### [facility] (DEFAULT) [address] [place] [address] 95401 MCV (RBC) [Entitic vol] 84 fL Normal 80-100 [facility] Comment on above: Order Comment: Criti elan Result called to and read back by MERON BEE RN of er on 04/23/2021 1:04 PM by Maru El. Performed By: #### I [id number] #### [facility] (DEFAULT) [address] [place] [address] 16713 Monocytes (Bld) [#/Vol] 0.70 10*3/uL Normal 0.30-0.90 [facility] Comment on above: Order Comment: Criti elan Result called to and read back by MERON BEE RN of er on 04/23/2021 1:04 PM by Maru El. Performed By: #### I [id number] #### [facility] (DEFAULT) [address] [place] [address] 56242 Monocytes/100 WBC (Bld) 12.2 % Normal [facility] Comment on above: Order Comment: Criti elan Result called to and read back by MERON BEE RN of er on 04/23/2021 1:04 PM by Maru El. Performed By: #### I [id number] #### [facility] (DEFAULT) [address] [place] [address] 07332 Neutrophils (Bld) [#/Vol] 3.79 10*3/uL Normal 1.70-7.00 [facility] Comment on above: Order Comment: Criti elan Result called to and read back by MERON BEE RN of er on 04/23/2021 1:04 PM by Maru El. Performed By: #### I [id number] #### [facility] (DEFAULT) [address] [place], [place] [address] Neutrophils/100 WBC (Bld) 65.8 % Normal [facility] Comment on above: Order Comment: Criti elan Result called to and read back by MERON BEE RN of er on 04/23/2021 1:04 PM by Maru El. Performed By: #### I [id number] #### [facility] (DEFAULT) [address] [place], [place] [address] Platelet mean volume (Bld) [Entitic vol] 9.1 fL Normal 9.0-15.5 [facility] Comment on above: Order Comment: Criti elan Result called to and read back by MERON BEE RN of er on 04/23/2021 1:04 PM by Maru El. Performed By: #### I [id number] #### [facility] (DEFAULT) [address] [place] [address] 35972 Platelets (Bld) [#/Vol] 337 10*3/uL Normal 150-400 [facility] Comment on above: Order Comment: Criti elan Result called to and read back by MERON BEE RN of er on 04/23/2021 1:04 PM by Maru El. Performed By: #### I [id number] #### [facility] (DEFAULT) [address] [place] [address] 8[address]16 RBC (Bld) [#/Vol] 4.53 10*6/uL Normal 4.00-5.20 [facility] Comment on above: Order Comment: Criti elan Result called to and read back by MERON BEE RN of er on 04/23/2021 1:04 PM by Maur El. Performed By: #### I [id number] #### [facility] (DEFAULT) [address] [place] [address] 89507 WBC (Bld) [#/Vol] 5.76 10*3/uL Normal 4.50-11.00 [facility] Comment on above: Order Comment: Criti elan Result called to and read back by MERON BEE RN of er on 04/23/2021 1:04 PM by Maru El. Performed By: #### I [id number] #### [facility] (DEFAULT) [address] [place], [place] [address] Calcium measurement (mass/vo lume)on 04-27-2021 Calcium (Unsp spec) [Mass/Vol] 8.4 mg/dL 8.0-10.2 [facility] Work Phone: Comprehensive Metabolic Pane nadia 04-27-2021 Albumin [Mass/Vol] 2.8 g/dL Low 3.2-4.5 [facility] Comment on above: Performed By: #### C OAGS #### [facility] (DEFAULT) [address] [place] [address] 17920 ALP [Catalytic activity/Vol] 81 U/L Normal 40-140 [facility] Comment on above: Performed By: #### C OAGS #### [facility] (DEFAULT) [address] [place] [address] 25240 ALT [Catalytic activity/Vol] 46 U/L Normal 14-65 [facility] Comment on above: Performed By: #### C OAGS #### [facility] (DEFAULT) [address] [place] [address] 13617 Anion gap [Moles/Vol] 19 mmol/L Normal 10-20 [facility] Comment on above: Performed By: #### C OAGS #### [facility] (DEFAULT) [address] [place] [address] 16585 AST [Catalytic activity/Vol] 12 U/L Normal 0-45 [facility] Comment on above: Performed By: #### C OAGS #### [facility] (DEFAULT) [address] [place] [address] 83100 Bilirubin [Mass/Vol] 0.4 mg/dL Normal 0.0-1.3 [facility] Comment on above: Performed By: #### C OAGS #### [facility] (DEFAULT) [address] [place], [place] [address] Calcium [Mass/Vol] 8.4 mg/dL Normal 8.0-10.2 [facility] Comment on above: Performed By: #### C OAGS #### [facility] (DEFAULT) [address] [place], [place] [address] Chloride [Moles/Vol] 104 mmol/L Normal 98-108 [facility] Comment on above: Performed By: #### C OAGS #### [facility] (DEFAULT) [address] [place], [place] [address] CO2 [Moles/Vol] 18.0 mmol/L Low 21.0-32.0 [facility] Comment on above: Performed By: #### C OAGS #### [facility] (DEFAULT) [address] [place] [address] 79673 Creatinine [Mass/Vol] 0.6 mg/dL Normal 0.4-1.1 [facility] Comment on above: Performed By: #### C OAGS #### [facility] (DEFAULT) [address] [place] [address] 6[address]32 GFR/1.73 sq M.predicted MDRD (S/P/Bld) [Vol rate/Area] 109 mL/min/{1.73_m2} Normal 60-1000 [facility] Comment on above: Result Comment: The eGFR should be used for monitoring renal function only and not for medication dosing. Performed By: #### C OAGS #### [facility] (DEFAULT) [address] [place], [place] [address] Glucose [Mass/Vol] 164 mg/dL High 65-99 [facility] Comment on above: Performed By: #### C OAGS #### [facility] (DEFAULT) [address] [place] [address] 75383 Potassium [Moles/Vol] 3.8 mmol/L Normal 3.5-5.1 [facility] Comment on above: Performed By: #### C OAGS #### [facility] (DEFAULT) [address] [place], [place] [address] Protein [Mass/Vol] 6.9 g/dL Normal 6.0-8.0 [facility] Comment on above: Performed By: #### C OAGS #### [facility] (DEFAULT) [address] [place], [place] [address] Sodium [Moles/Vol] 137 mmol/L Normal 135-145 [facility] Comment on above: Performed By: #### C OAGS #### [facility] (DEFAULT) [address] [place], [place] [address] Urea nitrogen [Mass/Vol] 19 mg/dL Normal 8-25 [facility] Comment on above: Performed By: #### C OAGS #### [facility] (DEFAULT) [address] [address] Erythrocyte distribution wid th ratioon 04-27-2021 Erythrocyte distribution width (RBC) [Ratio] 12.9 % 11.6-14.8 [facility] Work Phone: Erythrocyte mean corpuscular hemoglobin concentration measurement (mass/volume)on 04-27-2021 MCHC (RBC) [Mass/Vol] 34.3 g/dL 31.0-37.0 [facility] Work Phone: HBV + HCV screenon MCH (RBC) [Entitic mass] 28.7 pg 26.0-34.0 [facility] Work Phone: MCV (RBC) [Entitic vol] 84 fL 80-100 [facility] Work Phone: Laboratory - Chemistry and C hemistry - challengeon 04-27-2021 ALP [Catalytic activity/Vol] 81 U/L 40-140 [facility] Work Phone: Anion gap [Moles/Vol] 19 mmol/L 10-20 [facility] Work Phone: CO2 [Moles/Vol] 18.0 mmol/L 21.0-32.0 [facility] Work Phone: GFR/1.73 sq M.predicted among non-blacks MDRD (S/P/Bld) [Vol rate/Area] 109 mL/min/{1.73_m2} 60-1000 [facility] Work Phone: Comment on above: Result Units: mL/min /1.31x6Fbl eGFR should be used for monitoring renal function only and not for medication dosing. Laboratory - Hematology and Cell countson 04-27-2021 Basophils (Bld) [#/Vol] 0.00 10*3/uL 0.00-0.30 [facility] Work Phone: Hematocrit (Bld) [Volume fraction] 37.9 % 36.0-46.0 [facility] Work Phone: Immature granulocytes/100 WBC (Bld) 0.5 % 0.0-4.0 [facility] Work Phone: Neutrophils/100 WBC (Bld) 65.8 % [facility] Work Phone: RBC (Bld) [#/Vol] 4.53 10*6/uL 4.00-5.20 [facility] Work Phone: Neutrophils Auto (Bld) [#/Vo l]on 04-27-2021 Neutrophils (Bld) [#/Vol] 3.79 10*3/uL 1.70-7.00 [facility] Work Phone: PCM.DCPLANon 04-27-2021 [facility] Patient: DELILAH MANCUSO DISCHARGE PLAN/ORDERS Admit Date: 04/23/21 /Age: 09 1980 Attending Physician: Júnior Valadez MD Med Rec #: [id number] - Problem Patient Problems: Current Active Problems [...] Instructions: COVID-19 (Coronavirus Disease 2019) (DC) [facility] - Self quarantine/home isolation until 05/07/2021 [...] notify your physician Authenticated on: 04/27/21 [id number] CC: Normal [facility] Platelet mean volume Auto (B ld) [Entitic vol]on 04-27-2021 Platelet mean volume (Bld) [Entitic vol] 9.1 fL 9.0-15.5 [facility] Work Phone: Platelets Auto (Bld) [#/Vol] on 04-27-2021 Platelets (Bld) [#/Vol] 337 10*3/uL 150-400 [facility] Work Phone: Serum or plasma albumin marce urement (mass/volume)on 04-27-2021 Albumin [Mass/Vol] 2.8 g/dL 3.2-4.5 [facility] Work Phone: Serum or plasma urea nitroge n measurement (mass/volume)on 04-27-2021 Urea nitrogen [Mass/Vol] 19 mg/dL 8-25 [facility] Work Phone: Trichomonas screenon 021 AST [Catalytic activity/Vol] 12 U/L 0-45 [facility] Work Phone: Bilirubin [Mass/Vol] 0.4 mg/dL 0.0-1.3 [facility] Work Phone: Chloride [Moles/Vol] 104 mmol/L 98-108 [facility] Work Phone: Creatinine [Mass/Vol] 0.6 mg/dL 0.4-1.1 [facility] Work Phone: Eosinophils (Bld) [#/Vol] 0.00 10*3/uL 0.00-0.50 [facility] Work Phone: Eosinophils/100 WBC (Bld) 0.0 % [facility] Work Phone: Glucose [Mass/Vol] 164 mg/dL 65-99 [facility] Work Phone: Lymphocytes/100 WBC (Bld) 21.5 % [facility] Work Phone: Monocytes (Bld) [#/Vol] 0.70 10*3/uL 0.30-0.90 [facility] Work Phone: Monocytes/100 WBC (Bld) 12.2 % [facility] Work Phone: Potassium [Moles/Vol] 3.8 mmol/L 3.5-5.1 [facility] Work Phone: Protein [Mass/Vol] 6.9 g/dL 6.0-8.0 [facility] Work Phone: Sodium [Moles/Vol] 137 mmol/L 135-145 [facility] Work Phone: WBC (Bld) [#/Vol] 5.76 10*3/uL 4.50-11.00 [facility] Work Phone: Basophils Manual cnt (Bld) [ #/Vol]on 04-26-2021 Basophils/100 WBC (Bld) 0 % [facility] Work Phone: CBC With Auto Diff.on 2020 Erythrocyte distribution width (RBC) [Ratio] 13.1 % Normal 11.6-14.8 [facility] Comment on above: Order Comment: Regul atory Requirements State: Only Absolute Cell Counts are reported with their reference ranges. Performed By: #### C OAGS #### [facility] (DEFAULT) [address] [place] [address]199 Hematocrit (Bld) [Volume fraction] 36.9 % Normal 36.0-46.0 [facility] Comment on above: Order Comment: Regul atory Requirements State: Only Absolute Cell Counts are reported with their reference ranges. Performed By: #### C OAGS #### [facility] (DEFAULT) [address] [place] [address] 79874 Hemoglobin (Bld) [Mass/Vol] 12.7 g/dL Normal 12.0-16.0 [facility] Comment on above: Order Comment: Regul atory Requirements State: Only Absolute Cell Counts are reported with their reference ranges. Performed By: #### C OAGS #### [facility] (DEFAULT) [address] [place], [place] [address] Ig% 0.4 % Normal 0.0-4.0 [facility] Comment on above: Order Comment: Regul atory Requirements State: Only Absolute Cell Counts are reported with their reference ranges. Performed By: #### C OAGS #### [facility] (DEFAULT) [address] [place] [address] 10603 MCH (RBC) [Entitic mass] 29.1 pg Normal 26.0-34.0 [facility] Comment on above: Order Comment: Regul atory Requirements State: Only Absolute Cell Counts are reported with their reference ranges. Performed By: #### C OAGS #### [facility] (DEFAULT) [address] [place] [address] MCHC (RBC) [Mass/Vol] 34.4 g/dL Normal 31.0-37.0 [facility] Comment on above: Order Comment: Regul atory Requirements State: Only Absolute Cell Counts are reported with their reference ranges. Performed By: #### C OAGS #### [facility] (DEFAULT) [address] [place] [address]645 MCV (RBC) [Entitic vol] 85 fL Normal 80-100 [facility] Comment on above: Order Comment: Regul atory Requirements State: Only Absolute Cell Counts are reported with their reference ranges. Performed By: #### C OAGS #### [facility] (DEFAULT) [address] [place] [address] 85022 Platelet mean volume (Bld) [Entitic vol] 9.4 fL Normal 9.0-15.5 [facility] Comment on above: Order Comment: Regul atory Requirements State: Only Absolute Cell Counts are reported with their reference ranges. Performed By: #### C OAGS #### [facility] (DEFAULT) [address] [place] [address] 29190 Platelets (Bld) [#/Vol] 313 10*3/uL Normal 150-400 [facility] Comment on above: Order Comment: Regul atory Requirements State: Only Absolute Cell Counts are reported with their reference ranges. Performed By: #### C OAGS #### [facility] (DEFAULT) [address] [place], [place] [address] RBC (Bld) [#/Vol] 4.36 10*6/uL Normal 4.00-5.20 [facility] Comment on above: Order Comment: Regul atory Requirements State: Only Absolute Cell Counts are reported with their reference ranges. Performed By: #### C OAGS #### [facility] (DEFAULT) [address] [place] [address] 51174 WBC (Bld) [#/Vol] 5.29 10*3/uL Normal 4.50-11.00 [facility] Comment on above: Order Comment: Regul atory Requirements State: Only Absolute Cell Counts are reported with their reference ranges. Performed By: #### C OAGS #### [facility] (DEFAULT) [address] [place] [address] Comprehensive Metabolic Pane nadia 04-26-2021 Albumin [Mass/Vol] 2.8 g/dL Low 3.2-4.5 [facility] Comment on above: Performed By: #### C MP #### [facility] (DEFAULT) [address] [place] [address]39 ALP [Catalytic activity/Vol] 88 U/L Normal 40-140 [facility] Comment on above: Performed By: #### C MP #### [facility] (DEFAULT) [address] [place] [address] 98097 ALT [Catalytic activity/Vol] 49 U/L Normal 14-65 [facility] Comment on above: Performed By: #### C MP #### [facility] (DEFAULT) [address] [place] [address] Anion gap [Moles/Vol] 19 mmol/L Normal 10-20 [facility] Comment on above: Performed By: #### C MP #### [facility] (DEFAULT) [address] [place] [address] 13850 AST [Catalytic activity/Vol] 14 U/L Normal 0-45 [facility] Comment on above: Performed By: #### C MP #### [facility] (DEFAULT) [address] [place], [place] [address] Bilirubin [Mass/Vol] 0.4 mg/dL Normal 0.0-1.3 [facility] Comment on above: Performed By: #### C MP #### [facility] (DEFAULT) [address] [place], [place] [address] Calcium [Mass/Vol] 8.6 mg/dL Normal 8.0-10.2 [facility] Comment on above: Performed By: #### C MP #### [facility] (DEFAULT) [address] [place], [place] [address] Chloride [Moles/Vol] 105 mmol/L Normal 98-108 [facility] Comment on above: Performed By: #### C MP #### [facility] (DEFAULT) [address] [place] [address] CO2 [Moles/Vol] 16.0 mmol/L Low 21.0-32.0 [facility] Comment on above: Performed By: #### C MP #### [facility] (DEFAULT) [address] [place] [address]36 Creatinine [Mass/Vol] 0.6 mg/dL Normal 0.4-1.1 [facility] Comment on above: Performed By: #### C MP #### [facility] (DEFAULT) [address] [place] [address] 29275 GFR/1.73 sq M.predicted MDRD (S/P/Bld) [Vol rate/Area] 118 mL/min/{1.73_m2} Normal 60-1000 [facility] Comment on above: Result Comment: The eGFR should be used for monitoring renal function only and not for medication dosing. Performed By: #### C MP #### [facility] (DEFAULT) [address] [place], [place] [address] Glucose [Mass/Vol] 168 mg/dL High 65-99 [facility] Comment on above: Performed By: #### C MP #### [facility] (DEFAULT) [address] [address] Potassium [Moles/Vol] 3.9 mmol/L Normal 3.5-5.1 [facility] Comment on above: Performed By: #### C MP #### [facility] (DEFAULT) [address] [place], [place] [address] Protein [Mass/Vol] 6.8 g/dL Normal 6.0-8.0 [facility] Comment on above: Performed By: #### C MP #### [facility] (DEFAULT) [address] [place], [place] [address] Sodium [Moles/Vol] 136 mmol/L Normal 135-145 [facility] Comment on above: Performed By: #### C MP #### [facility] (DEFAULT) [address] [place], [place] [address] Urea nitrogen [Mass/Vol] 19 mg/dL Normal 8-25 [facility] Comment on above: Performed By: #### C MP #### [facility] (DEFAULT) [address] [place], [place] [address] Eosinophils Manual cnt (Bld) [#/Vol]on 04-26-2021 Eosinophils/100 WBC (Bld) 0 % [facility] Work Phone: HBV + HCV screenon 1 Monocytes/100 WBC (Bld) 7 % [facility] Work Phone: Lymphocytes Manual cnt (Bld) [#/Vol]on 04-26-2021 Lymphocytes/100 WBC (Bld) 27 % [facility] Work Phone: Manual Differential.on 04-26 Baso 0 % Normal [facility] Comment on above: Order Comment: Two a typical lymphocytes seen in slide. Performed By: #### M DIFF1 #### [facility] (DEFAULT) [address] [place], [place] [address] BASO# 0.00 X10E3/UL Normal 0.00-0.15 [facility] Comment on above: Order Comment: Two a typical lymphocytes seen in slide. Performed By: #### M DIFF1 #### [facility] (DEFAULT) [address] [place] [address] Blasts 0 % Normal 0-0 [facility] Comment on above: Order Comment: Two a typical lymphocytes seen in slide. Performed By: #### M DIFF1 #### [facility] (DEFAULT) [address] [place] [address] Blasts# 0.00 Normal 0.00-0.00 [facility] Comment on above: Order Comment: Two a typical lymphocytes seen in slide. Performed By: #### M DIFF1 #### [facility] (DEFAULT) [address] [place] [address] EOS 0 % Normal [facility] Comment on above: Order Comment: Two a typical lymphocytes seen in slide. Performed By: #### M DIFF1 #### [facility] (DEFAULT) [address] [place] [address] EOS# 0.00 X10E3/UL Normal 0.00-0.70 [facility] Comment on above: Order Comment: Two a typical lymphocytes seen in slide. Performed By: #### M DIFF1 #### [facility] (DEFAULT) [address] [place] [address] LYM# 1.43 X10E3/UL Normal 1.10-4.40 [facility] Comment on above: Order Comment: Two a typical lymphocytes seen in slide. Performed By: #### M DIFF1 #### [facility] (DEFAULT) [address] [place] [address] Lymphocytes 27 % Normal [facility] Comment on above: Order Comment: Two a typical lymphocytes seen in slide. Performed By: #### M DIFF1 #### [facility] (DEFAULT) [address] [place] [address] Cope# 0.00 X10E3/UL Low 1.50-7.50 [facility] Comment on above: Order Comment: Two a typical lymphocytes seen in slide. Performed By: #### M DIFF1 #### [facility] (DEFAULT) [address] [place], [place] [address] Metamyelocytes 0 % Normal 0-0 [facility] Comment on above: Order Comment: Two a typical lymphocytes seen in slide. Performed By: #### M DIFF1 #### [facility] (DEFAULT) [address] [place], [place] [address] MONO# 0.37 X10E3/UL Normal 0.20-0.95 [facility] Comment on above: Order Comment: Two a typical lymphocytes seen in slide. Performed By: #### M DIFF1 #### [facility] (DEFAULT) [address] [place], [place] [address] Monocytes 7 % Normal [facility] Comment on above: Order Comment: Two a typical lymphocytes seen in slide. Performed By: #### M DIFF1 #### [facility] (DEFAULT) [address] [place] [address] MYELO 0.00 % Normal 0.00-0.00 [facility] Comment on above: Order Comment: Two a typical lymphocytes seen in slide. Performed By: #### M DIFF1 #### [facility] (DEFAULT) [address] [place] [address] NEUT# 3.49 X10E3/UL Normal 1.50-7.50 [facility] Comment on above: Order Comment: Two a typical lymphocytes seen in slide. Performed By: #### M DIFF1 #### [facility] (DEFAULT) [address] [place], [place] [address] Neutrophils 66 % Normal [facility] Comment on above: Order Comment: Two a typical lymphocytes seen in slide. Performed By: #### M DIFF1 #### [facility] (DEFAULT) [address] [place], [place] [address] NRBC 0 /100wbc Normal [facility] Comment on above: Order Comment: Two a typical lymphocytes seen in slide. Performed By: #### M DIFF1 #### [facility] (DEFAULT) [address] [place], [place] [address] Manual body fluid myelocytes count (number/volume)on 04-26-2021 Myelocytes Manual cnt (Body fld) [#/Vol] 0.00 % 0.00-0.00 [facility] Work Phone: Metamyelocytes/100 WBC Manua l cnt (Bld)on 04-26-2021 Metamyelocytes/100 WBC (Bld) 0 % 0-0 [facility] Work Phone: Neutrophils Auto (Bld) [#/Vo l]on 04-26-2021 Neutrophils/100 WBC (Bld) 66 % [facility] Work Phone: No Panel Informationon 04-26 Nucleated Red Blood Cells 0 /100wbc [facility] Work Phone: Basic Metabolic panelon Anion gap [Moles/Vol] 19 mmol/L Normal 10-20 [facility] Comment on above: Performed By: #### B MP #### [facility] (DEFAULT) [address] [place] [address] Calcium [Mass/Vol] 8.4 mg/dL Normal 8.0-10.2 [facility] Comment on above: Performed By: #### B MP #### [facility] (DEFAULT) [address] [place] [address] 16896 Chloride [Moles/Vol] 107 mmol/L Normal 98-108 [facility] Comment on above: Performed By: #### B MP #### [facility] (DEFAULT) [address] [place] [address]248 CO2 [Moles/Vol] 14.0 mmol/L Low 21.0-32.0 [facility] Comment on above: Performed By: #### B MP #### [facility] (DEFAULT) [address] [place] [address]45 Creatinine [Mass/Vol] 0.7 mg/dL Normal 0.4-1.1 [facility] Comment on above: Performed By: #### B MP #### [facility] (DEFAULT) [address] [place] [address], [place] [address] GFR/1.73 sq M.predicted MDRD (S/P/Bld) [Vol rate/Area] 92 mL/min/{1.73_m2} Normal 60-1000 [facility] Comment on above: Result Comment: The eGFR should be used for monitoring renal function only and not for medication dosing. Performed By: #### B MP #### [facility] (DEFAULT) [address] [address] Glucose [Mass/Vol] 158 mg/dL High 65-99 [facility] Comment on above: Performed By: #### B MP #### [facility] (DEFAULT) [address] [place] [address] Potassium [Moles/Vol] 4.1 mmol/L Normal 3.5-5.1 [facility] Comment on above: Performed By: #### B MP #### [facility] (DEFAULT) [address] [place] [address] 10944 Sodium [Moles/Vol] 136 mmol/L Normal 135-145 [facility] Comment on above: Performed By: #### B MP #### [facility] (DEFAULT) [address] [place] [address] 37759 Urea nitrogen [Mass/Vol] 20 mg/dL Normal 8-25 [facility] Comment on above: Performed By: #### B MP #### [facility] (DEFAULT) [address] [place] [address] CBC With Auto Diff.on 2020 Erythrocyte distribution width (RBC) [Ratio] 13.8 % Normal 11.6-14.8 [facility] Comment on above: Order Comment: Criti elan Result called to and read back by MERON BEE RN of er on 04/23/2021 1:04 PM by Maru El. Performed By: #### I [id number] #### [facility] (DEFAULT) [address] [place] [address] Hematocrit (Bld) [Volume fraction] 41.0 % Normal 36.0-46.0 [facility] Comment on above: Order Comment: Criti elan Result called to and read back by MERON BEE RN of er on 04/23/2021 1:04 PM by Maru El. Performed By: #### I [id number] #### [facility] (DEFAULT) [address] [place] [address] Hemoglobin (Bld) [Mass/Vol] 13.6 g/dL Normal 12.0-16.0 [facility] Comment on above: Order Comment: Criti elan Result called to and read back by MERON BEE RN of er on 04/23/2021 1:04 PM by Maru El. Performed By: #### I [id number] #### [facility] (DEFAULT) [address] [place] [address] Ig% 0.2 % Normal 0.0-4.0 [facility] Comment on above: Order Comment: Criti elan Result called to and read back by MERON BEE RN of er on 04/23/2021 1:04 PM by Maru El. Performed By: #### I [id number] #### [facility] (DEFAULT) [address] [place] [address] MCH (RBC) [Entitic mass] 28.7 pg Normal 26.0-34.0 [facility] Comment on above: Order Comment: Criti elan Result called to and read back by MERON BEE RN of er on 04/23/2021 1:04 PM by Maru El. Performed By: #### I [id number] #### [facility] (DEFAULT) [address] [place] [address] MCHC (RBC) [Mass/Vol] 33.2 g/dL Normal 31.0-37.0 [facility] Comment on above: Order Comment: Criti elan Result called to and read back by MERON BEE RN of er on 04/23/2021 1:04 PM by Maru El. Performed By: #### I [id number] #### [facility] (DEFAULT) [address] [place] [address]656 MCV (RBC) [Entitic vol] 87 fL Normal 80-100 [facility] Comment on above: Order Comment: Criti elan Result called to and read back by MERON BEE RN of er on 04/23/2021 1:04 PM by Maru El. Performed By: #### I [id number] #### [facility] (DEFAULT) [address] [place] [address] Platelet mean volume (Bld) [Entitic vol] 9.9 fL Normal 9.0-15.5 [facility] Comment on above: Order Comment: Criti elan Result called to and read back by MERON BEE RN of er on 04/23/2021 1:04 PM by Maru El. Performed By: #### I [id number] #### [facility] (DEFAULT) [address] [place] [address] Platelets (Bld) [#/Vol] 255 10*3/uL Normal 150-400 [facility] Comment on above: Order Comment: Criti elan Result called to and read back by MERON BEE RN of er on 04/23/2021 1:04 PM by Maru El. Performed By: #### I [id number] #### [facility] (DEFAULT) [address] [place] [address] RBC (Bld) [#/Vol] 4.74 10*6/uL Normal 4.00-5.20 [facility] Comment on above: Order Comment: Criti elan Result called to and read back by MERON BEE RN of er on 04/23/2021 1:04 PM by Maru El. Performed By: #### I [id number] #### [facility] (DEFAULT) [address] [place] [address]267 WBC (Bld) [#/Vol] 4.80 10*3/uL Normal 4.50-11.00 [facility] Comment on above: Order Comment: Criti elan Result called to and read back by MERON BEE RN of er on 04/23/2021 1:04 PM by Maru El. Performed By: #### I [id number] #### [facility] (DEFAULT) [address] [place], [place] [address] Manual Differential.on 04-25 Baso 0 % Normal [facility] Comment on above: Order Comment: Three atypical lymphocytes seen in smear. Performed By: #### M DIFF1 #### [facility] (DEFAULT) [address] [place] [address] BASO# 0.00 X10E3/UL Normal 0.00-0.15 [facility] Comment on above: Order Comment: Three atypical lymphocytes seen in smear. Performed By: #### M DIFF1 #### [facility] (DEFAULT) [address] [place] [address] Blasts 0 % Normal 0-0 [facility] Comment on above: Order Comment: Three atypical lymphocytes seen in smear. Performed By: #### M DIFF1 #### [facility] (DEFAULT) [address] [place] [address] Blasts# 0.00 Normal 0.00-0.00 [facility] Comment on above: Order Comment: Three atypical lymphocytes seen in smear. Performed By: #### M DIFF1 #### [facility] (DEFAULT) [address] [place] [address] EOS 0 % Normal [facility] Comment on above: Order Comment: Three atypical lymphocytes seen in smear. Performed By: #### M DIFF1 #### [facility] (DEFAULT) [address] [place] [address] EOS# 0.00 X10E3/UL Normal 0.00-0.70 [facility] Comment on above: Order Comment: Three atypical lymphocytes seen in smear. Performed By: #### M DIFF1 #### [facility] (DEFAULT) [address] [place] [address] LYM# 1.01 X10E3/UL Low 1.10-4.40 [facility] Comment on above: Order Comment: Three atypical lymphocytes seen in smear. Performed By: #### M DIFF1 #### [facility] (DEFAULT) [address] [place] [address] Lymphocytes 21 % Normal [facility] Comment on above: Order Comment: Three atypical lymphocytes seen in smear. Performed By: #### M DIFF1 #### [facility] (DEFAULT) [address] [place], [place] [address] Cope# 0.00 X10E3/UL Low 1.50-7.50 [facility] Comment on above: Order Comment: Three atypical lymphocytes seen in smear. Performed By: #### M DIFF1 #### [facility] (DEFAULT) [address] [place] [address] Metamyelocytes 0 % Normal 0-0 [facility] Comment on above: Order Comment: Three atypical lymphocytes seen in smear. Performed By: #### M DIFF1 #### [facility] (DEFAULT) [address] [place] [address] MONO# 0.38 X10E3/UL Normal 0.20-0.95 [facility] Comment on above: Order Comment: Three atypical lymphocytes seen in smear. Performed By: #### M DIFF1 #### [facility] (DEFAULT) [address] [place] [address] Monocytes 8 % Normal [facility] Comment on above: Order Comment: Three atypical lymphocytes seen in smear. Performed By: #### M DIFF1 #### [facility] (DEFAULT) [address] [place] [address] MYELO 0.00 % Normal 0.00-0.00 [facility] Comment on above: Order Comment: Three atypical lymphocytes seen in smear. Performed By: #### M DIFF1 #### [facility] (DEFAULT) [address] [place] [address] NEUT# 3.41 X10E3/UL Normal 1.50-7.50 [facility] Comment on above: Order Comment: Three atypical lymphocytes seen in smear. Performed By: #### M DIFF1 #### [facility] (DEFAULT) [address] [place], [place] [address] Neutrophils 71 % Normal [facility] Comment on above: Order Comment: Three atypical lymphocytes seen in smear. Performed By: #### M DIFF1 #### [facility] (DEFAULT) [address] [place], [place] [address] NRBC 0 /100wbc Normal [facility] Comment on above: Order Comment: Three atypical lymphocytes seen in smear. Performed By: #### M DIFF1 #### [facility] (DEFAULT) [address] [place], [place] [address] Basic Metabolic panelon 09-0 -2020 Anion gap [Moles/Vol] 20 mmol/L Normal 10-20 [facility] Comment on above: Performed By: #### B MP #### [facility] (DEFAULT) [address] [place] [address]346 Calcium [Mass/Vol] 8.4 mg/dL Normal 8.0-10.2 [facility] Comment on above: Performed By: #### B MP #### [facility] (DEFAULT) [address] [place] [address]226 Chloride [Moles/Vol] 107 mmol/L Normal 98-108 [facility] Comment on above: Performed By: #### B MP #### [facility] (DEFAULT) [address] [place] [address] 38304 CO2 [Moles/Vol] 15.0 mmol/L Low 21.0-32.0 [facility] Comment on above: Performed By: #### B MP #### [facility] (DEFAULT) [address] [place] [address]18 Creatinine [Mass/Vol] 0.6 mg/dL Normal 0.4-1.1 [facility] Comment on above: Performed By: #### B MP #### [facility] (DEFAULT) [address] [place] [address] 39338 GFR/1.73 sq M.predicted MDRD (S/P/Bld) [Vol rate/Area] 113 mL/min/{1.73_m2} Normal 60-1000 [facility] Comment on above: Result Comment: The eGFR should be used for monitoring renal function only and not for medication dosing. Performed By: #### B MP #### [facility] (DEFAULT) [address] [place], [place] [address] Glucose [Mass/Vol] 122 mg/dL High 65-99 [facility] Comment on above: Performed By: #### B MP #### [facility] (DEFAULT) [address] [place], [place] [address] Potassium [Moles/Vol] 4.3 mmol/L Normal 3.5-5.1 [facility] Comment on above: Performed By: #### B MP #### [facility] (DEFAULT) [address] [place] [address]29 Sodium [Moles/Vol] 138 mmol/L Normal 135-145 [facility] Comment on above: Performed By: #### B MP #### [facility] (DEFAULT) [address] [place] [address] 54549 Urea nitrogen [Mass/Vol] 17 mg/dL Normal 8-25 [facility] Comment on above: Performed By: #### B MP #### [facility] (DEFAULT) [address] [place] [address] 23454 CBC With Auto Diff.on 2020 Erythrocyte distribution width (RBC) [Ratio] 13.7 % Normal 11.6-14.8 [facility] Comment on above: Order Comment: Regul atory Requirements State: Only Absolute Cell Counts are reported with their reference ranges. Performed By: #### C OAGS #### [facility] (DEFAULT) [address] [place] [address] Hematocrit (Bld) [Volume fraction] 37.9 % Normal 36.0-46.0 [facility] Comment on above: Order Comment: Regul atory Requirements State: Only Absolute Cell Counts are reported with their reference ranges. Performed By: #### C OAGS #### [facility] (DEFAULT) [address] [place] [address] 24426 Hemoglobin (Bld) [Mass/Vol] 12.6 g/dL Normal 12.0-16.0 [facility] Comment on above: Order Comment: Regul atory Requirements State: Only Absolute Cell Counts are reported with their reference ranges. Performed By: #### C OAGS #### [facility] (DEFAULT) [address] [place], [place] [address] Ig% 0.5 % Normal 0.0-4.0 [facility] Comment on above: Order Comment: Regul atory Requirements State: Only Absolute Cell Counts are reported with their reference ranges. Performed By: #### C OAGS #### [facility] (DEFAULT) [address] [place] [address] 84233 MCH (RBC) [Entitic mass] 28.8 pg Normal 26.0-34.0 [facility] Comment on above: Order Comment: Regul atory Requirements State: Only Absolute Cell Counts are reported with their reference ranges. Performed By: #### C OAGS #### [facility] (DEFAULT) [address] [place] [address] 74492 MCHC (RBC) [Mass/Vol] 33.2 g/dL Normal 31.0-37.0 [facility] Comment on above: Order Comment: Regul atory Requirements State: Only Absolute Cell Counts are reported with their reference ranges. Performed By: #### C OAGS #### [facility] (DEFAULT) [address] [place] [address] 90997 MCV (RBC) [Entitic vol] 87 fL Normal 80-100 [facility] Comment on above: Order Comment: Regul atory Requirements State: Only Absolute Cell Counts are reported with their reference ranges. Performed By: #### C OAGS #### [facility] (DEFAULT) [address] [place] [address] 08436 Platelet mean volume (Bld) [Entitic vol] 9.8 fL Normal 9.0-15.5 [facility] Comment on above: Order Comment: Regul atory Requirements State: Only Absolute Cell Counts are reported with their reference ranges. Performed By: #### C OAGS #### [facility] (DEFAULT) [address] [place] [address] 39929 Platelets (Bld) [#/Vol] 241 10*3/uL Normal 150-400 [facility] Comment on above: Order Comment: Regul atory Requirements State: Only Absolute Cell Counts are reported with their reference ranges. Performed By: #### C OAGS #### [facility] (DEFAULT) [address] [place], [place] [address] RBC (Bld) [#/Vol] 4.37 10*6/uL Normal 4.00-5.20 [facility] Comment on above: Order Comment: Regul atory Requirements State: Only Absolute Cell Counts are reported with their reference ranges. Performed By: #### C OAGS #### [facility] (DEFAULT) [address] [place] [address]15 WBC (Bld) [#/Vol] 4.30 10*3/uL Low 4.50-11.00 [facility] Comment on above: Order Comment: Regul atory Requirements State: Only Absolute Cell Counts are reported with their reference ranges. Performed By: #### C OAGS #### [facility] (DEFAULT) [address] [place] [address]31 D-Dimer Quantitativeon 04-24 D-Dimer Quantitative >5000.0 High 6.0-450.0 [facility] Comment on above: Result Comment: A D- [...] By: #### C OAGS #### [facility] (DEFAULT) [address] [place] [address] HBV + HCV screenon HBV + HCV screen >5000.0 ng/mL FEU 6.0-450.0 [facility] Work Phone: Comment on above: A D-Dimer [...] 04-24 Baso 0 % Normal [facility] Comment on above: Performed By: #### M DIFF1 #### [facility] (DEFAULT) [address] [place] [address] BASO# 0.00 X10E3/UL Normal 0.00-0.15 [facility] Comment on above: Performed By: #### M DIFF1 #### [facility] (DEFAULT) [address] [place] [address] Blasts 0 % Normal 0-0 [facility] Comment on above: Performed By: #### M DIFF1 #### [facility] (DEFAULT) [address] [place] [address] Blasts# 0.00 Normal 0.00-0.00 [facility] Comment on above: Performed By: #### M DIFF1 #### [facility] (DEFAULT) [address] [place] [address] EOS 0 % [facility] Comment on above: Performed By: #### M DIFF1 #### [facility] (DEFAULT) [address] [place] [address] EOS# 0.00 X10E3/UL Normal 0.00-0.70 [facility] Comment on above: Performed By: #### M DIFF1 #### [facility] (DEFAULT) [address] [place] [address] LYM# 0.82 X10E3/UL Low 1.10-4.40 [facility] Comment on above: Performed By: #### M DIFF1 #### [facility] (DEFAULT) [address] [place] [address] Lymphocytes 19 % Normal [facility] Comment on above: Performed By: #### M DIFF1 #### [facility] (DEFAULT) [address] [place], [place] [address] Cope# 0.00 X10E3/UL Low 1.50-7.50 [facility] Comment on above: Performed By: #### M DIFF1 #### [facility] (DEFAULT) [address] [place] [address]30 Metamyelocytes 0 % Normal 0-0 [facility] Comment on above: Performed By: #### M DIFF1 #### [facility] (DEFAULT) [address] [place] [address] MONO# 0.39 X10E3/UL Normal 0.20-0.95 [facility] Comment on above: Performed By: #### M DIFF1 #### [facility] (DEFAULT) [address] [place] [address] 80707 Monocytes 9 % Normal [facility] Comment on above: Performed By: #### M DIFF1 #### [facility] (DEFAULT) [address] [place] [address] 11634 MYELO 0.00 % Normal 0.00-0.00 [facility] Comment on above: Performed By: #### M DIFF1 #### [facility] (DEFAULT) [address] [place] [address] 23938 NEUT# 3.10 X10E3/UL Normal 1.50-7.50 [facility] Comment on above: Performed By: #### M DIFF1 #### [facility] (DEFAULT) [address] [place] [address] 7[address]44 Neutrophils 72 % Normal [facility] Comment on above: Performed By: #### M DIFF1 #### [facility] (DEFAULT) [address] [place] [address]32 NRBC 0 /100wbc Normal [facility] Comment on above: Performed By: #### M DIFF1 #### [facility] (DEFAULT) [address] [place] [address]12 Blood INR by coagulation ass ishmael 04-23-2021 INR Coag (Bld) [Relative time] 0.89 {INR} 0.90-1.20 [facility] Work Phone: Comment on above: Therapeutic range of an INR is 2.0 - 3.0.Prosthetic Valves: 2.5-3.5An INR >5.0 is considered critical. Blood activated partial thro mboplastin time (aPTT) by coagulation assayon 04-23-2021 aPTT Coag (Bld) [Time] 26.5 s 21.9-33.8 [facility] Work Phone: Blood prothrombin time (PT) by coagulation assayon 04-23-2021 PT Coag (Bld) [Time] 9.7 s 8.7-11.4 [facility] Work Phone: Bloodcultureon 04-23-2021 Bacteria identified Cx Nom (Bld) Wili al Result called to and read back by Rena toledo RN of [facility] on 04/24/2021 7:42 PM by Anum Yip [...] STAPHYLOCOCCUS HOMINIS A Testi g Performed At: [facility] [address] [place] [address]55 Staphylococcus hominis Sets Positive [1] of [2] GRAM STAIN RESULT BC: Gram Positive Cocci in clusters A Testi g Performed At: [facility] [address] [place] [address] Sets Positive [1] of [2] Normal [facility] Comment on above: Performed By: #### C OAGS #### [facility] (DEFAULT) [address] [place], [place] [address] Bloodculture Second Seton Bloodculture Second Set Blood [...] After 5 Days Testi g Performed At: [facility] [address] [place] [address] Normal [facility] Comment on above: Performed By: #### C OAGS #### [facility] (DEFAULT) [address] [place] [address]100 CBC With Auto Diff.on 2020 Basophils (Bld) [#/Vol] 0.01 10*3/uL Normal 0.00-0.30 [facility] Comment on above: Order Comment: Regul atory Requirements State: Only Absolute Cell Counts are reported with their reference ranges. Performed By: #### C BC #### [facility] (DEFAULT) [address] [place] [address] 10319 Basophils/100 WBC (Bld) 0.2 % Normal [facility] Comment on above: Order Comment: Regul atory Requirements State: Only Absolute Cell Counts are reported with their reference ranges. Performed By: #### C BC #### [facility] (DEFAULT) [address] [place] [address] Eosinophils (Bld) [#/Vol] 0.00 10*3/uL Normal 0.00-0.50 [facility] Comment on above: Order Comment: Regul atory Requirements State: Only Absolute Cell Counts are reported with their reference ranges. Performed By: #### C BC #### [facility] (DEFAULT) [address] [place] [address] Eosinophils/100 WBC (Bld) 0.0 % [facility] Comment on above: Order Comment: Regul atory Requirements State: Only Absolute Cell Counts are reported with their reference ranges. Performed By: #### C BC #### [facility] (DEFAULT) [address] [place] [address] Erythrocyte distribution width (RBC) [Ratio] 13.8 % Normal 11.6-14.8 [facility] Comment on above: Order Comment: Regul atory Requirements State: Only Absolute Cell Counts are reported with their reference ranges. Performed By: #### C BC #### [facility] (DEFAULT) [address] [place], [place] [address] Hematocrit (Bld) [Volume fraction] 40.5 % Normal 36.0-46.0 [facility] Comment on above: Order Comment: Regul atory Requirements State: Only Absolute Cell Counts are reported with their reference ranges. Performed By: #### C BC #### [facility] (DEFAULT) [address] [place] [address] Hemoglobin (Bld) [Mass/Vol] 13.3 g/dL Normal 12.0-16.0 [facility] Comment on above: Order Comment: Regul atory Requirements State: Only Absolute Cell Counts are reported with their reference ranges. Performed By: #### C BC #### [facility] (DEFAULT) [address] [place] [address] Ig% 0.3 % Normal 0.0-4.0 [facility] Comment on above: Order Comment: Regul atory Requirements State: Only Absolute Cell Counts are reported with their reference ranges. Performed By: #### C BC #### [facility] (DEFAULT) [address] [place] [address] Lymphocytes (Bld) [#/Vol] 1.20 10*3/uL Normal 0.90-4.00 [facility] Comment on above: Order Comment: Regul atory Requirements State: Only Absolute Cell Counts are reported with their reference ranges. Performed By: #### C BC #### [facility] (DEFAULT) [address] [place] [address] Lymphocytes/100 WBC (Bld) 19.5 % Normal [facility] Comment on above: Order Comment: Regul atory Requirements State: Only Absolute Cell Counts are reported with their reference ranges. Performed By: #### C BC #### [facility] (DEFAULT) [address] [place] [address] MCH (RBC) [Entitic mass] 28.9 pg Normal 26.0-34.0 [facility] Comment on above: Order Comment: Regul atory Requirements State: Only Absolute Cell Counts are reported with their reference ranges. Performed By: #### C BC #### [facility] (DEFAULT) [address] [place], [place] [address] MCHC (RBC) [Mass/Vol] 32.8 g/dL Normal 31.0-37.0 [facility] Comment on above: Order Comment: Regul atory Requirements State: Only Absolute Cell Counts are reported with their reference ranges. Performed By: #### C BC #### [facility] (DEFAULT) [address] [place], [place] [address] MCV (RBC) [Entitic vol] 88 fL Normal 80-100 [facility] Comment on above: Order Comment: Regul atory Requirements State: Only Absolute Cell Counts are reported with their reference ranges. Performed By: #### C BC #### [facility] (DEFAULT) [address] [place], [place] [address] Monocytes (Bld) [#/Vol] 0.28 10*3/uL Low 0.30-0.90 [facility] Comment on above: Order Comment: Regul atory Requirements State: Only Absolute Cell Counts are reported with their reference ranges. Performed By: #### C BC #### [facility] (DEFAULT) [address] [place], [place] [address] Monocytes/100 WBC (Bld) 4.5 % Normal [facility] Comment on above: Order Comment: Regul atory Requirements State: Only Absolute Cell Counts are reported with their reference ranges. Performed By: #### C BC #### [facility] (DEFAULT) [address] [place], [place] [address] Neutrophils (Bld) [#/Vol] 4.65 10*3/uL Normal 1.70-7.00 [facility] Comment on above: Order Comment: Regul atory Requirements State: Only Absolute Cell Counts are reported with their reference ranges. Performed By: #### C BC #### [facility] (DEFAULT) [address] [place], [place] [address] Neutrophils/100 WBC (Bld) 75.5 % Normal [facility] Comment on above: Order Comment: Regul atory Requirements State: Only Absolute Cell Counts are reported with their reference ranges. Performed By: #### C BC #### [facility] (DEFAULT) [address] [place] [address] Platelet mean volume (Bld) [Entitic vol] 9.5 fL Normal 9.0-15.5 [facility] Comment on above: Order Comment: Regul atory Requirements State: Only Absolute Cell Counts are reported with their reference ranges. Performed By: #### C BC #### [facility] (DEFAULT) [address] [place] [address] Platelets (Bld) [#/Vol] 202 10*3/uL Normal 150-400 [facility] Comment on above: Order Comment: Regul atory Requirements State: Only Absolute Cell Counts are reported with their reference ranges. Performed By: #### C BC #### [facility] (DEFAULT) [address] [place] [address] RBC (Bld) [#/Vol] 4.61 10*6/uL Normal 4.00-5.20 [facility] Comment on above: Order Comment: Regul atory Requirements State: Only Absolute Cell Counts are reported with their reference ranges. Performed By: #### C BC #### [facility] (DEFAULT) [address] [place] [address] WBC (Bld) [#/Vol] 6.16 10*3/uL Normal 4.50-11.00 [facility] Comment on above: Order Comment: Regul atory Requirements State: Only Absolute Cell Counts are reported with their reference ranges. Performed By: #### C BC #### [facility] (DEFAULT) [address] [place] [address] CHEST SINGLE VIEWon 04-23-20 CHEST SINGLE VIEW [facility] Patient: DELILAH MANCUSO [address] [facility] [place] [address] Admit Date: 04/23/21 /Age: 09 1980 ED Physician: Ramirez Grimaldo MD DIAGNOSTIC RADIOLOGY REQUISITION Attending Physician: Med Rec #: [id number] EXAM: CHEST SINGLE VIEW HISTORY: SOB, check [...] as other etiologies. Authenticated on: 04/23/21 1234 59304/RRIA 1234 Job ID# [id number] CC: Ramirez Grimaldo MD Normal [facility] CTA THORAX W POST PROCESSING on 04-23-2021 CTA THORAX W POST PROCESSING [facility] Patient: DELILAH MANCUS[place] [address] Admit Date: 04/23/21 /Age: 09 1980 ED Physician: Ramirez Grimaldo MD DIAGNOSTIC RADIOLOGY REQUISITION Attending Physician: Med Rec #: [id number] EXAMINATION: CTA THORAX W POST PROCESSING HISTORY: Covid pneumonia and elevated d-dimer. Evaluate for pulmonary embolism. COMPARISON: None. TECHNIQUE: CT angiography of the chest was performed with IV contrast. MIP (maxmum intensity projection) images or 3D post processing was performed. CT dose reduction technique was used, including Automated Exposure Control. AI TECHNOLOGY: This study was processed using [employer]. No prior found. Current Lung [...] both lungs compatiblewith viral pneumonia. Authenticated on: 04/23/21 140 08254/RRIA 02 02 Job ID# [id number] CC: Ramirez Grimaldo MD Normal [facility] Coagulation Panelon 04-23-20 aPTT Coag (Bld) [Time] 26.5 s Normal 21.9-33.8 [facility] Comment on above: Performed By: #### C OAGS #### [facility] (DEFAULT) [address] [place] [address] INR Coag (PPP) [Relative time] 0.89 {INR} Low 0.90-1.20 [facility] Comment on above: Result Comment: Ther apeutic range of an INR is 2.0 - 3.0. Prosthetic Valves: 2.5-3.5 An INR >5.0 is considered critical. Performed By: #### C OAGS #### [facility] (DEFAULT) [address] [place], [place] [address] PT Coag (PPP) [Time] 9.7 s Normal 8.7-11.4 [facility] Comment on above: Performed By: #### C OAGS #### [facility] (DEFAULT) [address] [place], [place] [address] Comprehensive Metabolic Pane nadia 04-23-2021 Albumin [Mass/Vol] 3.0 g/dL Low 3.2-4.5 [facility] Comment on above: Performed By: #### C OAGS #### [facility] (DEFAULT) [address] [place] [address] ALP [Catalytic activity/Vol] 100 U/L Normal 40-140 [facility] Comment on above: Performed By: #### C OAGS #### [facility] (DEFAULT) [address], [place] [address] ALT [Catalytic activity/Vol] 70 U/L High 14-65 [facility] Comment on above: Performed By: #### C OAGS #### [facility] (DEFAULT) [address] [place], [place] [address], [place] [address] Anion gap [Moles/Vol] 15 mmol/L Normal 10-20 [facility] Comment on above: Performed By: #### C OAGS #### [facility] (DEFAULT) [address] [place] [address] AST [Catalytic activity/Vol] 38 U/L Normal 0-45 [facility] Comment on above: Performed By: #### C OAGS #### [facility] (DEFAULT) [address] [place] [address] Bilirubin [Mass/Vol] 0.3 mg/dL Normal 0.0-1.3 [facility] Comment on above: Performed By: #### C OAGS #### [facility] (DEFAULT) [address] [place] [address] Calcium [Mass/Vol] 8.9 mg/dL Normal 8.0-10.2 [facility] Comment on above: Performed By: #### C OAGS #### [facility] (DEFAULT) [address] [place] [address] Chloride [Moles/Vol] 105 mmol/L Normal 98-108 [facility] Comment on above: Performed By: #### C OAGS #### [facility] (DEFAULT) [address] [place] [address] CO2 [Moles/Vol] 20.0 mmol/L Low 21.0-32.0 [facility] Comment on above: Performed By: #### C OAGS #### [facility] (DEFAULT) [address] [place] [address] Creatinine [Mass/Vol] 0.7 mg/dL Normal 0.4-1.1 [facility] Comment on above: Performed By: #### C OAGS #### [facility] (DEFAULT) [address] [place] [address]47 GFR/1.73 sq M.predicted MDRD (S/P/Bld) [Vol rate/Area] 96 mL/min/{1.73_m2} Normal 60-1000 [facility] Comment on above: Result Comment: The eGFR should be used for monitoring renal function only and not for medication dosing. Performed By: #### C OAGS #### [facility] (DEFAULT) [address] [place] [address] Glucose [Mass/Vol] 177 mg/dL High 65-99 [facility] Comment on above: Performed By: #### C OAGS #### [facility] (DEFAULT) [address] [place] [address] Potassium [Moles/Vol] 4.2 mmol/L Normal 3.5-5.1 [facility] Comment on above: Performed By: #### C OAGS #### [facility] (DEFAULT) [address] [place] [address] Protein [Mass/Vol] 7.5 g/dL Normal 6.0-8.0 [facility] Comment on above: Performed By: #### C OAGS #### [facility] (DEFAULT) [address] [place] [address] Sodium [Moles/Vol] 136 mmol/L Normal 135-145 [facility] Comment on above: Performed By: #### C OAGS #### [facility] (DEFAULT) [address] [place] [address] Urea nitrogen [Mass/Vol] 11 mg/dL Normal 8-25 [facility] Comment on above: Performed By: #### C OAGS #### [facility] (DEFAULT) [address] [place] [address] D-Dimer Quantitativeon 09-05 -2021 D-Dimer Quantitative 1191.0 ng/mL FEU High 6.0-450.0 [facility] Comment on above: Result Comment: [...] By: #### C OAGS #### [facility] (DEFAULT) [address] [place] [address] EDREPTon 04-23-2021 EDREPT [facility] Patient: DELILAH MANCUSO 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 Normal [facility] ID NOW SARS-CoV-2 RNA Qualit ativeon 04-23-2021 ID NOW COVID19 Detected Normal Not Detected [facility] Comment on above: Order Comment: Criti elan [...] at the following links: For Healthcare Providers: https//www.fda.gov/media/678155/download For Patients: https//www.fda.gov/media/022859/download Performed By: #### I [id number] #### [facility] (DEFAULT) [address] [place], [place] [address] INITIAL HS TROPONIN Ion 09-0 HS Troponin I 9 ng/L Normal 3-59 [facility] Comment on above: Performed By: #### C OAGS #### [facility] (DEFAULT) [address] [place], [place] [address] Lactic Acid, Plasmaon 2020 Lactic Acid, Plasma 1.2 mmol/L Normal 0.6-2.0 [facility] Comment on above: Performed By: #### L A #### [facility] (DEFAULT) [address] [place], [place] [address] No Panel Informationon 04-23 SARS Source Detected Not Detected [facility] Work Phone: Comment on above: This [...] found at the following links:For Healthcare Providers: https//www.fda.gov/media/157766/downloadFor Patients: https//www.fda.gov/media/461972/download Troponin I High Sensitivity 9 ng/L 3-59 [facility] Work Phone: Serum or plasma lactate marce urement (moles/volume)on 04-23-2021 Lactate [Moles/Vol] 1.2 mmol/L 0.6-2.0 [facility] Work Phone: Hemoglobin A1Con 08-16-2020 Glucose [Mass/Vol] 183 mg/dL [place] Comment on above: The ADA and AACC rec ommend providing the estimated average glucose result to permit better patient understanding of their HBA1c result. HbA1c (Bld) [Mass fraction] 8.0 % High 4 - 6 % [place] Interpretation and review of laboratory results Abnormal [place] Lipid Panelon 08-16-2020 Cholesterol [Mass/Vol] 196 mg/dL <200 [place] Comment on above: Cholesterol Guidelines: <200 Desirable 200-240 Borderline >240 Undesirable Cholesterol in HDL [Mass/Vol] 51 mg/dL >40 [place] Comment on above: HDL Guidelines: <40 Undesirable 40-59 Borderline >59 Desirable Cholesterol in LDL [Mass/Vol] 82 mg/dL 0 - 130 mg/dL [place] Comment on above: LDL Guidelines: <100 Desirable 100-129 Near to/above Desirable 130-159 Borderline >159 Undesirable Direct (measured) LDL and calculated LDL are not interchangeable tests. Cholesterol in VLDL [Mass/Vol] NOT REPORTED High 1 - 30 mg/dL [place] Cholesterol.total/Ch olesterol in HDL [Mass ratio] 3.8 {ratio} <5 [place] Interpretation and review of laboratory results Abnormal [place] Triglyceride [Mass/Vol] 315 mg/dL High <150 [place] Comment on above: Triglyceride Guidelines: <150 Desirable 150-199 Borderline 200-499 High >499 Very high Based on AHA Guidelines for fasting triglyceride, May 2012. Patient Fasting?on 0 Patient Fasting? yes [place] Comprehensive Metabolic Pane nadia 05-02-2020 Albumin [Mass/Vol] 4.2 g/dL 3.5 - 5.2 g/dL [place] Albumin/Globulin [Mass ratio] NOT REPORTED [place] ALP [Catalytic activity/Vol] 82 U/L 35 - 104 U/L [place] ALT [Catalytic activity/Vol] 55 U/L High 5 - 33 U/L [place] Anion gap [Moles/Vol] 12 mmol/L 9 - 17 mmol/L [place] AST [Catalytic activity/Vol] 26 U/L <32 [place] Bilirubin Ql (U) 0.32 mg/dL 0.3 - 1.2 mg/dL [place] Bun/Cre Ratio 15 [place] Calcium [Mass/Vol] 9.3 mg/dL 8.6 - 10. 4 mg/dL [place] Chloride [Moles/Vol] 101 mmol/L 98 - 10 7 mmol/L [place] CO2 [Moles/Vol] 22 mmol/L 20 - 31 mmol/L [place] Creatinine [Mass/Vol] 0.67 mg/dL 0.5 - 0.9 mg/dL [place] GFR >60 >60 mL/min [place] GFR Non- >60 >60 mL/min [place] GFR/1.73 sq M predicted among non-blacks MDRD (S/P/Bld) [Vol rate/Area] [place] Comment on above: Average GFR for 30-3 9 years old: 107 mL/min/1.73sq m Chronic Kidney Disease: <60 mL/min/1.73sq m Kidney failure: <15 mL/min/1.73sq m eGFR calculated using average adult body mass. Additional eGFR calculator available at: http://www.[employer]/multiple_crcl_2012.htm GFR/1.73 sq M predicted among non-blacks MDRD (S/P/Bld) [Vol rate/Area] NOT REPORTED [place] Glucose [Mass/Vol] 190 mg/dL High 70 - 99 mg/dL [place] Interpretation and review of laboratory results Abnormal [place] Potassium [Moles/Vol] 4.1 mmol/L 3.7 - 5.3 mmol/L [place] Protein [Mass/Vol] 8.2 g/dL 6.4 - 8.3 g/dL [place] Sodium [Moles/Vol] 135 mmol/L 135 - 144 mmol/L [place] Urea nitrogen [Mass/Vol] 10 mg/dL 6 - 20 mg/dL [place] Lipid Panelon 05-02-2020 Cholesterol [Mass/Vol] 191 mg/dL <200 [place] Comment on above: Cholesterol Guidelines: <200 Desirable 200-240 Borderline >240 Undesirable Cholesterol in HDL [Mass/Vol] 45 mg/dL >40 [place] Comment on above: HDL Guidelines: <40 Undesirable 40-59 Borderline >59 Desirable Cholesterol in LDL [Mass/Vol] 86 mg/dL 0 - 130 mg/dL [place] Comment on above: LDL Guidelines: <100 Desirable 100-129 Near to/above Desirable 130-159 Borderline >159 Undesirable Direct (measured) LDL and calculated LDL are not interchangeable tests. Cholesterol in VLDL [Mass/Vol] NOT REPORTED High 1 - 30 mg/dL [place] Cholesterol.total/Ch olesterol in HDL [Mass ratio] 4.2 {ratio} <5 [place] Interpretation and review of laboratory results Abnormal [place] Triglyceride [Mass/Vol] 301 mg/dL High <150 [place] Comment on above: Triglyceride Guidelines: <150 Desirable 150-199 Borderline 200-499 High >499 Very high Based on AHA Guidelines for fasting triglyceride, May 2012. Microalbumin / Creatinine Ur ine Ratioon 05-02-2020 Albumin/Creatinine DL <= 20 mg/L (24H U) [Mass ratio] <12 <21 mg/L [place] Albumin/Creatinine DL <= 20 mg/L (U) [Ratio] CANNOT BE CALCULATED <25 mcg/mg creat [place] Creatinine, Ur 205.1 mg/dL 28 - 217 mg/dL [place] Patient Fasting?on 0 Patient Fasting? YES [place] Coding Summary.on 01-25-2020 Coding Summary. CODING DATE: 01/25/2020 FINAL [facility] STATUS: Home (Routine DC) PAYOR: Medical [place] ADMIT DX: REASON FOR VISIT DX: Z01.812 [...] [place] CphT Date Saved: 01/25/2020 02:47 pm [facility] Postoperative Documentson Postoperative Documents [id number]#1 .00CD:127 [facility] IntraOperative Documentson 0 01-19-2020 IntraOperative Documents [id number]#1 .00CD:127 [facility] Coding Summary.on 01-18-2020 Coding Summary. CODING DATE: 01/18/2020 FINAL [facility] STATUS: Home (Routine DC) PAYOR: Medical [place] APC DESCRIPTION 5362 Level 2 Laparoscopy and Related Services ADMIT DX: REASON FOR VISIT DX: N80.9 Endometriosis, unspecified FINAL DX: PRINCIPAL: N80.0 Endometriosis of uterus SECONDARY: N87.9 Dysplasia of cervix uteri, unspecified R10.2 Pelvic and perineal pain N81.89 Other female genital prolapse I10 Essential (primary) hypertension E11.9 Type 2 diabetes mellitus without complications Z79.84 [facility] (current) use of oral hypoglycemic drugs PYMT PROC APC STAT DESCRIPTION DOCTOR NAME DATE 41732 5362 J1 Laparoscopy, surgical, Erika RODRIGUEZ, Alli Dickens 01/15/2020 with total hysterectomy, for uterus 250 g or less; with removal of tube(s) and/or ovary(s) 21452 Anesthesia for Jabier Puentes Jr., DO 01/15/2020 intraperitoneal procedures in lower abdomen including laparoscopy; not otherwise specified NOTE: The code number assigned matches the documented diagnosis and / or procedure in the patient's chart. However, the narrative phrase printed from the coding software may appear abbreviated, or result in slightly different terminology. Revised Coded By: Sandra Salguero Revised Date Saved: 01/18/2020 12:27 pm [facility] Consent for Anesthesiaon Consent for Anesthesia [id number]# 1.00CD:127 [facility] Discharge Instructionson Discharge Instructions [id number]# 1.00CD:127 Normal [facility] IntraOperative Documentson 0 01-18-2020 IntraOperative Documents [id number]# 1.00CD:127 Normal [facility] IntraOperative Documents [id number]# 1.00CD:127 Normal [facility] Main OR Intraoperative Recor don 01-18-2020 Main OR Intraoperative Record IntraOp Document Type FT Summary Primary Physician: Alli Gaston MD Finalized Date/Time: 01/18/20 09:27:07 Pt. Name: DELILAH MANCUSO /Sex: 1980 Female Med Rec #: [id number] Physician: Alli Gaston MD Financial #: [id number] Pt. Type: A Room/Bed: [place] [address] Admit/Disch: 01/15/20 05:56:52 - 01/15/20 15:15:00 Institution: Case Times FT Entry 1 Patient Times In Room 01/15/20 07:41:00 Out Room 01/15/20 09:42:00 Procedure Times Start 01/15/20 08:06:00 Stop 01/15/20 09:36:00 Anesthesia Times Start 01/15/20 07:41:00 Stop 01/15/20 09:42:00 Last Modified By: Xavier MATT, Sheree Arriaga 01/15/20 09:45:43 General Comments: 0820: robot docked. [id number]: dr gaston out of room for consultation 0840:surgeon to console 01/18/2020 Chart opened to review and send charges Alayna Humphreys CONTROLS TECHNICIAN Case Attendance FT Entry 1 Entry 2 Entry 3 Case Attendee Dhaval Bellamy DO, Jabier Gaston MD, Alli Mittal CONTROLS TECHNICIAN/SA, Adelita Chilel Performed Anesthesiologist of Surgeon - Primary CONTROLS TECHNICIAN/SA Record Time In 01/15/20 07:41:00 01/15/20 07:56:00 01/15/20 07:41:00 Time Out 01/15/20 09:42:00 01/15/20 09:26:00 01/15/20 09:42:00 Procedure HYSTERECTOMY, ROBOT HYSTERECTOMY, ROBOT HYSTERECTOMY, ROBOT ASSISTED(Bilateral) ASSISTED(Bilateral) ASSISTED(Bilateral) Comments Last Modified By: Xavier MTAT, Sheree Park RN, Sheree Early RN 01/15/20 09:45:44 01/15/20 09:45:44 01/15/20 09:45:44 Entry 4 Entry 5 Entry 6 Case Attendee Xavier MATT, Sheree Ray CONTROLS TECHNICIAN, Marta Vieira RN, CNOR, Connie Role Performed Brewery Pumper - Primary Scrub - Primary Scrub - Other Time In 01/15/20 07:41:00 01/15/20 07:41:00 01/15/20 07:41:00 Time Out 01/15/20 09:42:00 01/15/20 09:42:00 01/15/20 09:23:00 Procedure HYSTERECTOMY, ROBOT HYSTERECTOMY, ROBOT HYSTERECTOMY, ROBOT ASSISTED(Bilateral) ASSISTED(Bilateral) ASSISTED(Bilateral) Comments 2nd scrub Last Modified By: Xavier MATT, Sheree Park RN, Sheree Park RN, Sheree Arriaga 01/15/20 09:45:44 01/15/20 09:45:44 01/15/20 09:45:44 Perioperative [...] Out Jabier Puentes Jr., DO Given Participants Erika Stewart MD, Daxa Colindres CONTROLS TECHNICIAN/Adelita OWEN Farris RN, Flor Cabrera CST, Isha Gann RN, CNOR, Connie Time Out Complete 01/15/20 08:05:00 Outcomes Met? [...] and tissue Entry 1 Skin Integrity Intact, Rumsey, Warm, and Skin Abnormality No Dry Outcomes [...] By Jabier Puentes Jr., DO, Farris RN, Isha Cabrera RN, CNOR, Erika Rosales MD, Alli Dickens Outcomes Met? Yes Last Modified By: Sheree [...] Met? Yes Yes Yes Last Modified By: Xavier MATT, Sheree Park RN, Sheree Early RN 01/15/20 07:19:09 01/15/20 [...] Met? Yes Yes Yes Last Modified By: Xavier MATT, Sheree Park RN, Sheree Early RN 01/15/20 07:19:09 01/15/20 [...] PEOPLES, Marta Ray CST, Isha Gann RN, JINAORMaritza Farris RN, Karen M Ann Outcomes Met? [...] Hair Removal Methods Site By Sheree Park RN CONTROLS TECHNICIAN/SA, Adelita Outcomes Met? Yes Yes Last Modified By: [...] safely administered during the perioperative period For [place] please see scanned medication reconcilliation form for medications used at the field during the procedure. Urinary Catheter Pre-Care Text: Patient is prepped using sterile technique. Entry 1 Urinary Catheter TRAY URINE CHANDRA CATH Present Upon Arrival No Inserted LF 16FR [[id number]][F] Insertion Date/Time 01/15/20 08:00:00 Urine Residual 60 Insertion Site Uretheral Urine clear yellow Characteristics Inserted By Daxa PEOPLES/Adelita OWEN Discontinued? No Outcomes Met? Yes Last Modified [...] BLANKET MISTRAL AIR Quantity 1 Aid TORSO [[id number]][F] Fluid/[place] [facility] Mistral warming system Setting high/43 degrees Body Site Upper anterior torso Last Modified By: Sheree Park RN 01/15/20 07:25:29 Case Comments Finalized By: Jennifer Humphreys CST Document Signatures Signed By: Sheree Park RN 01/15/20 09:46 Jennifer Humphreys CST 01/18/20 09:27 Normal [facility] Preoperative Documentson Preoperative Documents [id number]# 1.00CD:127 Normal [facility] Operative Reporton 0 Operative Report Date [...] Ruma were then used to follow the Backlift manipulator guideline for creation of the vaginal [...] Room in stable condition Alli Gaston MD, FACADIN cr Dictated: 01/15/2020 #[id number] Typed: 01/16/2020 #[id number] cc: Alli aGston MD, FACADIN Normal [facility] Comment on above: Result Comment: Elec tronically Signed By: Erika RODRIGUEZ, Alli Dickens\.br\Date and Time Signed: 01/17/20 07:01 EDT ABO/Rhon 01-15-2020 ABO/Rh Positive [facility] Comment on above: Performed By: #### 2 821196, 12373848, 4184001, 1946872, 53911393, 2670692 #### [facility] [address] [place] [address] ABO/Rh History Checkon 01-14 ABO/Rh History Check Verified Hx Blood Type Normal [facility] Comment on above: Performed By: #### 2 299415, 39734282, 1877386, 7666517, 59960766, 1369552 #### [facility] [address] [place] [address] ABSCon 01-15-2020 ABSC Gel Interp Negative Normal [facility] Comment on above: Performed By: #### 2 388397, 63013799, 1491497, 3784137, 22656266, 5154580 #### [facility] [address] [place] [address] Blood Bank ID#on 01-15-2020 BBID# [id number] [facility] Comment on above: Performed By: #### 2 857540, 42367769, 3054181, 4206528, 15438269, 1231747 #### [facility] [address] [place] [address] Blood Bank Slipon 01-15-2020 Blood Bank Slip [id number]#1 .00CD:127 Normal [facility] History and Physicalon 01-14 History and [...] Sensitivities to chlorine. Medications: Glucophage and Microgestin 1.01/15, lisinopril, Ziac. Illnesses: Hypertension, diabetes. FAMILY HISTORY: [...] Alli Gaston MD, FACOG gls Dictated: 01/14/2020 #[id number] Typed 01/15/2020 #[id number] cc: Alli Gaston MD, FACOG Normal [facility] Comment on above: Result Comment: Elec tronically Signed By: Erika RODRIGUEZ, Alli Dickens\.br\Date and Time Signed: 01/15/20 09:31 EDT Inpatient Patient Summaryon 01-15-2020 Inpatient Patient Summary [place] [id number] [facility] Clinical Discharge Instructions PERSON INFORMATION Name: DELILAH MANCUSO [facility]#:[id number] PHYSICIANS Admitting Physician: Alli Gaston MD Attending Physician: Alli Gaston MD PCP: SHYAM REYNOLDS MD Discharge Diagnosis: Diabetes; Endometriosis; Female pelvic pain; Pelvic relaxation; S/P total hysterectomy; Status post bilateral salpingectomy Comment: PATIENT EDUCATION INFORMATION Instructions: ONLINE MERCHANDISING SPECIALIST - Post Hysterectomy/[place] my/Major Surgery-Erika (Custom); Post Op Patient Instructions - MARYLU (Custom) Medication Leaflets: Follow up: With: Address: When: [address], [place] [address] Business (1) Within 6 weeks With: Address: When: [address], [place] [address] Business (1) Within 2 weeks Comments: Call for any problems. MEDICATION LIST New Medications [facility] [address], [address], [place] [id number], [phone] acetaminophen-oxycodo ne (Percocet 325 mg-5 mg Tab) [...] tab By Mouth every day. Comment: Normal [facility] Main OR PACU I Recordon 12-18 Main OR PACU I Record PACU Phase I Document Type FT Summary Primary Physician: Alli Gaston MD Finalized Date/Time: 01/15/20 10:57:46 Pt. Name: DELILAH MANCUSO Chrissie /Sex: 1980 Female Med Rec #: [id number] Physician: Alli Gaston MD Financial #: [id number] Pt. Type: A Room/Bed: [place] [address] Admit/Disch: 01/15/20 05:56:52 - Institution: Case Times [...] Signed By: Joanna Macias RN 01/15/20 10:57 Normal [facility] Main OR PACU II Recordon Main OR PACU II Record PACU Phase II Document Type FT Summary Primary Physician: Alli Gaston MD Finalized Date/Time: 01/15/20 15:31:21 Pt. Name: BARTOLOME DELILAH Chrissie /Sex: 1980 Female Med Rec #: [id number] Physician: Alli Gaston MD Financial #: [id number] Pt. Type: A Room/Bed: [place] [address] Admit/Disch: 01/15/20 05:56:52 - Institution: Case Times [...] By: Irene Silva LPN 01/15/20 15:31 Normal [facility] Main OR Preoperative Recordo n 01-15-2020 Main OR Preoperative Record PreOp Document Type FT Summary Primary Physician: Alli Gaston MD Finalized Date/Time: 01/15/20 08:51:01 Pt. Name: DELILAH MANCUSO /Sex: 1980 Female Med Rec #: [id number] Physician: Alli Gaston MD Financial #: [id number] Pt. Type: A Room/Bed: [place] [address] Admit/Disch: 01/15/20 05:56:52 - Institution: Case Times [...] By: Sheree Park RN 01/15/20 08:51 Normal [facility] Monitor Recordon 01-15-2020 Monitor Record [id number] 1.00CD:127 Normal [facility] Monitor Record [id number] 1.00CD:127 Normal [facility] Patient Education - Texton 0 01-15-2020 [...] or cramps. PLEASE CALL FOR ANY PROBLEMS. Normal [facility] Progress Note-Physicianon Progress Note-Physician Patient: DELILAH [...] Cap 161 mg/dL HI POC Device SN [id number] POC Username DUYEN YEH 01/15/2020 6:13 EDT [...] interpretation: SINUS RHYTHM WITH SINUS ARRHYTHMIA. Plan [place] [employer]esthesi[employer] (ASA) physical status classification: Class III. Anesthetic Preoperative Plan Anesthesia: General. . Anesthetic plan, risks, benefits, and alternatives discussed with the patient and/or family. Patient verbalized understanding. Adverse reactions, complications, and alternatives discujssed. Consent signed and on chart.. Normal [facility] Comment on above: Result Comment: Elec tronically Signed By: Jabier Puentes Jr., DO\.br\Date and Time Signed: 01/15/20 07:02 EDT U BetaHcg Qualon 01-15-2020 HCG.beta subunit (U) [Moles/Vol] Negative Normal [facility] Comment on above: Performed By: #### 2 [id number] #### [facility] [address] [place] [address] UA With Cult Reflexon 2019 Bacteria LM Ql (Urine sed) TRACE Normal Trace [facility] Comment on above: Performed By: #### 2 413259, 44457168, 4250331, 4323142, 24251528, 3615331 #### [facility] [address] [place] [address] Bilirubin Ql (U) Negative Normal Negative [facility] Comment on above: Performed By: #### 2 242992, 50898532, 3579725, 8070873, 42125830, 1753594 #### [facility] [address] [place] [address] Clarity (U) CLEAR Normal Clear [facility] Comment on above: Performed By: #### 2 256735, 58253626, 4767937, 3242363, 22499231, 3875626 #### [facility] [address] [place] [address] Color (U) YELLOW Normal Yellow [facility] Comment on above: Performed By: #### 2 750428, 43291587, 0676465, 3957300, 73513339, 9213251 #### [facility] [address] [place] [address] Crystals LM Ql (Urine sed) Present Normal [facility] Comment on above: Performed By: #### 2 351572, 78672047, 4087184, 1400141, 66816742, 0350255 #### [facility] [address] [place] [address] Epithelial cells.squamous LM.HPF (Urine sed) [#/Area] 0-2 Normal 0-2 [facility] Comment on above: Performed By: #### 2 229783, 27670989, 2665751, 5357540, 50116024, 1303631 #### [facility] [address] [place] [address] Glucose Test strip (U) [Mass/Vol] Negative Normal Negative [facility] Comment on above: Performed By: #### 2 813395, 96621078, 1284566, 8252779, 44928339, 7198011 #### [facility] [address] [place] [address] Hemoglobin Ql (U) Negative Normal Negative [facility] Comment on above: Performed By: #### 2 015797, 47039160, 9854095, 9418480, 94878531, 7993261 #### [facility] [address] [place] [address] Ketones (U) [Mass/Vol] Negative Normal Negative [facility] Comment on above: Performed By: #### 2 401663, 89080726, 3271596, 3871643, 64027258, 2280712 #### [facility] [address] [place] [address] Leshara.plasma/Lithi um.RBC (Bld) [Mass ratio] 0-3 Normal 0-3 [facility] Comment on above: Performed By: #### 2 261767, 35976879, 4137513, 1073553, 90008835, 6067204 #### [facility] [address] [place] [address] Mucus Ql (Urine sed) 1+ Normal [facility] Comment on above: Performed By: #### 2 033733, 42694712, 3827047, 9252429, 48313141, 8833131 #### [facility] [address] [place] [address] Nitrite Ql (U) Negative Normal Negative [facility] Comment on above: Performed By: #### 2 798078, 87475344, 1842007, 9649829, 64375103, 4388502 #### [facility] [address] [place] [address] pH (U) 5.5 [pH] 5.0-9.0 [facility] Comment on above: Performed By: #### 2 668706, 10902249, 8389680, 5129071, 55203335, 7561381 #### [facility] [address] [place] [address] Protein (U) [Mass/Vol] Negative Normal Negative [facility] Comment on above: Performed By: #### 2 409157, 16072930, 6361057, 4932028, 33854229, 7319857 #### [facility] [address] [place] [address] Specific gravity (U) [Rel density] 1.025 1.005-1.030 [facility] Comment on above: Performed By: #### 2 691336, 70505091, 0845676, 8319756, 42783401, 0396873 #### [facility] [address] [place] [address] UA Spec Desc Lowry Normal [facility] Comment on above: Performed By: #### 2 239221, 29581735, 2006544, 9068334, 40584523, 8349782 #### [facility] [address] [place] [address] Urobilinogen Qn (U) 0.2 {Erasmo'U}/dL Normal 0.0-1.0 [facility] Comment on above: Performed By: #### 2 929311, 92581708, 8781028, 9525316, 11473564, 0073064 #### [facility] [address] [place] [address] WBC Auto Ql (U) Negative Normal Negative [facility] Comment on above: Performed By: #### 2 740495, 25395976, 7314095, 0449928, 73276392, 7509474 #### [facility] [address] [place] [address] WBC LM.HPF (Urine sed) [#/Area] 0-5 Normal 0-5 [facility] Comment on above: Performed By: #### 2 530853, 51452889, 4328794, 1884506, 01309783, 8251024 #### [facility] [address] [place] [address] Coding Summary.on 01-05-2020 Coding Summary. CODING DATE: 01/05/2020 FINAL [facility] STATUS: Home (Routine DC) PAYOR: Medical [place] [facility] DESCRIPTION 5733 Level 3 Minor Procedures [...] CphT Date Saved: 01/05/2020 02:42 pm Normal [facility] ABO/Rh Retypeon 01-04-2020 ABO/Rh Retype Interp Positive [facility] Comment on above: Performed By: #### 1 [id number] #### [facility] [address] [place] [address] B hCG Qualon 01-04-2020 Beta hCG Ql Negative Normal [facility] Comment on above: Performed By: #### 2 9606226 #### [facility] [address] [place] [address] BUNon 01-04-2020 Urea nitrogen [Mass/Vol] 12 mg/dL Normal 5-21 [facility] Comment on above: Performed By: #### 2 791141, 16616628, 1271383, 0740011, 71590005, 2218565 #### [facility] [address] [place] [address] CBC w/Indiceson 01-04-2020 Erythrocyte distribution width (RBC) [Ratio] 13.0 % Normal 10.9-14.2 [facility] Comment on above: Performed By: #### 2 317154, 82569879, 9840308, 1041246, 98637879, 4853645 #### [facility] [address] [place] [address] Hematocrit (Bld) [Volume fraction] 37.1 % Normal 34.0-46.0 [facility] Comment on above: Performed By: #### 2 068824, 14418334, 6813366, 0391150, 56084922, 6117246 #### [facility] [address] [place] [address] Hemoglobin (Bld) [Mass/Vol] 12.4 g/dL Normal 12.0-16.0 [facility] Comment on above: Performed By: #### 2 294888, 99836493, 1983830, 1478385, 43237230, 2522725 #### [facility] [address] [place] [address] MCH (RBC) [Entitic mass] 28.8 pg Normal 27.0-34.0 [facility] Comment on above: Performed By: #### 2 293747, 31490301, 9793939, 4817385, 45089304, 4836955 #### [facility] [address] [place] [address] MCHC (RBC) [Mass/Vol] 33.4 g/dL Normal 31.4-36.0 [facility] Comment on above: Performed By: #### 2 526143, 22481079, 9545055, 4032721, 85970984, 6600089 #### [facility] [address] [place] [address] MCV (RBC) [Entitic vol] 86.2 fL Normal 80.0-100.0 [facility] Comment on above: Performed By: #### 2 891182, 66071026, 7558561, 7337901, 15174320, 1474961 #### [facility] [address] [place] [address] Platelet mean volume (Bld) [Entitic vol] 7.8 fL Normal 6.4-10.8 [facility] Comment on above: Performed By: #### 2 700535, 91415107, 7850546, 3832604, 77581667, 6413787 #### [facility] [address] [place] [address] Platelets (Bld) [#/Vol] 266.0 E9/L Normal 150.0-500.0 [facility] Comment on above: Performed By: #### 2 700529, 02274830, 5405408, 5715361, 35099478, 3605412 #### [facility] [address] [place] [address] RBC (Bld) [#/Vol] 4.3 E12/L Normal 4.3-5.9 [facility] Comment on above: Performed By: #### 2 628870, 10493989, 2671499, 2276109, 03249091, 4037917 #### [facility] [address] [place] [address] WBC corrected for nucl RBC Auto (Bld) [#/Vol] 8.4 E9/L Normal 4.0-11.0 [facility] Comment on above: Performed By: #### 2 418233, 04652785, 6843354, 9325045, 59346714, 7605246 #### [facility] [address] [place] [address] Creatinineon 01-04-2020 Creatinine [Mass/Vol] 0.6 mg/dL Normal 0.5-1.3 [facility] Comment on above: Performed By: #### 2 569913, 00376595, 5693846, 3116994, 23959287, 5595901 #### [facility] [address] [place] [address] Lyteson 01-04-2020 Anion gap [Moles/Vol] 12 mmol/L Normal 6-16 [facility] Comment on above: Performed By: #### 2 031434, 18255795, 0269185, 9531135, 97794546, 5069422 #### [facility] [address] [place] [address] Chloride [Moles/Vol] 104 mmol/L Normal 101-111 [facility] Comment on above: Performed By: #### 2 014520, 96881318, 8496375, 7287930, 34019313, 7075719 #### [facility] [address] [place] [address] CO2 [Moles/Vol] 23 mmol/L Normal 21-31 [facility] Comment on above: Performed By: #### 2 682385, 74289884, 9405742, 7436617, 02489144, 8526683 #### [facility] [address] [place] [address] Potassium [Moles/Vol] 4.0 mmol/L Normal 3.5-5.3 [facility] Comment on above: Performed By: #### 2 646434, 01814253, 8627156, 1989164, 74615434, 0087618 #### [facility] [address] [place] [address] Sodium [Moles/Vol] 135 mmol/L Normal 135-145 [facility] Comment on above: Performed By: #### 2 274803, 81865370, 5873796, 2162605, 32720095, 7348331 #### [facility] [address] [place] [address] PT & PTTon 01-04-2020 aPTT Coag (PPP) [Time] 27.5 second(s) Normal 25.1-36.5 [facility] Comment on above: Result Comment: Hepa rin therapeutic range (represented by Anti-Factor Xa activity of 0.2 - 0.4 U/mL) corresponds to PTT of 56.6 - 109.0 sec. Performed By: #### 2 506349, 21504745, 2876889, 6419591, 20426002, 4058867 #### [facility] [address] [place] [address] INR Coag (PPP) [Relative time] 0.9 {INR} [facility] Comment on above: Result Comment: INR results are specifically intended to assess patients stabilized on long-term Anticoagulation therapy suggested INR?s ?Less Intensive Anticoagulation? 2.0 ? 3.0 Conventional Range 3.0 ? 4.5 Performed By: #### 2 251271, 01845530, 3942276, 3587210, 84515772, 9902991 #### [facility] [address] [place] [address] PT Coag (PPP) [Time] 10.4 second(s) Normal 10.2-12.9 [facility] Comment on above: Performed By: #### 2 818404, 68093205, 4916028, 5373763, 11411249, 4677366 #### [facility] [address] [place] [address] eGFRon 01-04-2020 GFR/1.73 sq M predicted among blacks MDRD (S/P/Bld) [Vol rate/Area] mL/min/{1.73_m2} Normal >=59 [facility] Comment on above: Order Comment: Order added by Discern Expert. Result Comment: eGFR is race adjusted. AA=. Performed By: #### 2 366952, 60940505, 9343103, 3631756, 23644441, 8450142 #### [facility] [address] [place] [address] GFR/1.73 sq M predicted among non-blacks MDRD (S/P/Bld) [Vol rate/Area] mL/min/{1.73_m2} Normal >=59 [facility] Comment on above: Order Comment: Order added by Discern Expert. Result Comment: Pattern Duplicator krissy kidney disease could be indicated at eGFR's of less than 60 mL/min/1.73m2. Kidney failure is indicated at less than 15 mL/min/1.73m2. Performed By: #### 2 372887, 04320241, 6091221, 5962175, 52565267, 4493883 #### [facility] [address] [place] [address] Microalb.,Random Uron 2017 Creatinine 162.3 mg/dL Normal 28.0-217.0 [facility] Comment on above: Performed By: #### C PURMA ####[address] [place] [address] Microalb/Creat Ratio CANNOT BE CALCULATED Normal <25 [facility] Comment on above: Performed By: #### C PURMA ####[address] [place] [address](625) Microalbumin conc. <12 Normal <21 [facility] Comment on above: Performed By: #### C PURMA ####[address] [place] [address] Vital Signs Date Time Vital Sign Value Performing Clinician Karissa blackwell 04-14-2022 22:24-0400 Respiratory rate 17 /min Raf Wilson MD Work Phone: [facility] 04-14-2022 22:20-0400 Diastolic blood pressure 76 mm[Hg] Raf Wilson MD Work Phone: [facility] 04-14-2022 22:20-0400 Heart rate 88 /min Raf Wilson MD Work Phone: [facility] 04-14-2022 22:20-0400 Systolic blood pressure 131 mm[Hg] Raf Wilson MD Work Phone: [facility] [employer] 04-14-2022 22:10-0400 SaO2% (BldA) [Mass fraction] 100 % Raf Wilson MD Work Phone: [facility] [employer] 04-14-2022 19:51-0400 Body height 170.2 cm Raf Wilson MD Work Phone: [facility] [employer] 04-14-2022 19:51-0400 Body mass index (BMI) [Ratio] 40.27 kg/m2 Raf Wilson MD Work Phone: [facility] [employer] 04-14-2022 19:51-0400 Body temperature 100.4 [degF] Raf Wilson MD Work Phone: [facility] [employer] 04-14-2022 19:51-0400 Body weight 116.62 kg Raf Wilson MD Work Phone: [employer] 01-01-2022 15:11-0400 Diastolic blood pressure 80 mm[Hg] Desmond Reynolds MD Work Phone: [email or web address] 01-01-2022 15:11-0400 SaO2% (BldA) [Mass fraction] 100 % Desmond Reynolds MD Work Phone: [email or web address] 01-01-2022 15:11-0400 Systolic blood pressure 135 mm[Hg] Desmond Reynolds MD Work Phone: [email or web address] 01-01-2022 14:06-0400 Body mass index (BMI) [Ratio] 39.53 kg/m2 Desmond Reynolds MD Work Phone: [email or web address] 01-01-2022 14:06-0400 Body temperature 97.7 [degF] Desmond Reynolds MD Work Phone: [email or web address] 01-01-2022 14:06-0400 Body weight 117.94 kg Desmond Reynolds MD Work Phone: [email or web address] 01-01-2022 14:06-0400 Heart rate 106 /min Desmond Reynolds MD Work Phone: [email or web address] 01-01-2022 14:06-0400 Respiratory rate 16 /min Desmond Reynolds MD Work Phone: [email or web address] 05-08-2021 15:14-0400 Body height 172.7 cm Keo Amaya MD Work Phone: [email or web address] Work Phone: 05-08-2021 15:14-0400 Body mass index (BMI) [Ratio] 38.77 kg/m2 Keo Amaya MD Work Phone: [email or web address] Work Phone: 05-08-2021 15:14-0400 Body temperature 99.19 [degF] Keo Amaya MD Work Phone: [email or web address] Work Phone: 05-08-2021 15:14-0400 Body weight 115.67 kg Keo Amaya MD Work Phone: [email or web address] Work Phone: 05-08-2021 15:14-0400 Diastolic blood pressure 86 mm[Hg] Keo Amaya MD Work Phone: [email or web address] Work Phone: 05-08-2021 15:14-0400 Heart rate 92 /min Keo Amaya MD Work Phone: [email or web address] Work Phone: 05-08-2021 15:14-0400 Respiratory rate 20 /min Keo Amaya MD Work Phone: [email or web address] Work Phone: 05-08-2021 15:14-0400 SaO2% (BldA) [Mass fraction] 97 % Keo Amaya MD Work Phone: [email or web address] Work Phone: 05-08-2021 15:14-0400 Systolic blood pressure 150 mm[Hg] Keo Amaya MD Work Phone: [email or web address] Work Phone: 04-27-2021 11:26-0400 Diastolic blood pressure 89 mm[Hg] MD RAMIREZ GRIMALDO Work Phone: [facility] Work Phone: 04-27-2021 11:26-0400 Heart rate 92 /min MD RAMIREZ GRIMALDO Work Phone: [facility] Work Phone: 04-27-2021 11:26-0400 SaO2% (BldA) [Mass fraction] 95 % MD RAMIREZ GRIMALDO Work Phone: [facility] Work Phone: 04-27-2021 11:26-0400 Systolic blood pressure 129 mm[Hg] MD RAMIREZ GRIMALDO Work Phone: [facility] Work Phone: 04-27-2021 10:39-0400 Body temperature 98.1 [degF] MD RAMIREZ GRIMALDO Work Phone: [facility] Work Phone: 04-27-2021 10:39-0400 Respiratory rate 20 /min MD RAMIREZ GRIMALDO Work Phone: [facility] Work Phone: 04-23-2021 15:35-0400 Body height 170.18 cm MD RAMIREZ GRIMALDO Work Phone: [facility] Work Phone: 04-23-2021 15:35-0400 Body mass index (BMI) [Ratio] 40.5 kg/m2 MD RAMIREZ GRIMALDO Work Phone: [facility] Work Phone: 04-23-2021 15:35-0400 Body weight 117.4 kg MD RAMIREZ GRIMALDO Work Phone: [facility] Work Phone: Encounters Encounter Date Encounter Type Care Provider Facility Start: 09-07-2023 End: 09-08-2023 [facility] Start: 06-10-2023 End: 06-11-2023 [facility] Start: 05-23-2023 End: 05-24-2023 [facility] Start: 05-21-2023 End[facility] [facility] Start: 05-16-2023 End: 05-17-2023 [facility] Start: 05-13-2023 End: 05-14-2023 [facility] Start: 05-09-2023 End: 05-10-2023 [facility] Start: 05-07-2023 End: 05-08-2023 [facility] Start: 05-07-2023 End: 05-07-2023 Subsequent hospital visit by physician Marcial Chaves PT [facility] Comment on above: Arrived Start: 05-02-2023 End: 05-03-2023 [facility] Start: 04-25-2023 End: 04-26-2023 [facility] Start: 04-23-2023 End: 04-24-2023 [facility] Start: 04-19-2023 [facility] Start: 04-17-2023 End: 04-18-2023 ambulatory [facility] Start: 04-17-2023 End: 04-17-2023 Subsequent hospital visit by physician Marcial Chaves PT [facility] Comment on above: Arrived Start: 04-15-2023 End: 04-16-2023 ambulatory [facility] Start: 04-15-2023 End: 04-15-2023 Subsequent hospital visit by physician Nik Canales MEDICAID BILLING SPECIALIST [facility] Comment on above: Arrived Start: 04-11-2023 End: 04-12-2023 ambulatory DANIE Dickens [facility] Start: 03-11-2023 End: 03-14-2023 ambulatory KEO Catalan [facility] Start: 03-01-2023 End: 03-02-2023 ambulatory [facility] Start: 08-22-2022 End: 08-22-2022 Subsequent hospital [...] patient visit Raf Wilson MD Work Phone: [facility] ED Comment on above: COVID-19 virus infec tion (Primary Dx); Vasovagal near-syncope Start: 03-15-2022 End: 03-15-2022 Subsequent hospital visit by physician Yamini Covid19 Pat Screening Schedule [facility] Comment on above: Suspected COVID-19 v irus infection Start: 02-12-2022 End: 02-12-2022 Subsequent hospital visit by physician Yamini Ekg [facility] Comment on above: Palpitations Start: 01-20-2022 End: 01-20-2022 Subsequent hospital visit by physician Shyam Reynolds MD Work Phone: [facility] Comment on above: Controlled type 2 di abetes mellitus without complication, without long-term current use of insulin (HCC); Mixed hyperlipidemia Start: 01-01-2022 End: 01-01-2022 Emergency department patient visit Desmond Reynolds MD Work Phone: [facility] ED Comment on above: Lower abdominal pain (Primary Dx) Start: 07-24-2021 End: 07-24-2021 Subsequent hospital visit by physician Shyam Reynolds MD Work Phone: [facility] Comment on above: Mixed hyperlipidemia ; Benign essential HTN; Hair loss Start: 05-08-2021 End: 05-08-2021 Emergency department patient visit Keo Amaya MD Work Phone: [facility] ED Comment on above: Edema of left foot ( Primary Dx) Start: 04-23-2021 End: 04-23-2021 ambulatory [facility] Start: 04-23-2021 End: 04-27-2021 Evaluation and management of inpatient MD RAMIREZ GRIMALDO Work Phone: [facility]-ACUTE C[facility] Start: 04-17-2021 End: 04-17-2021 Subsequent hospital visit by physician [facility] Covid19 Pat Screening Schedule [facility] Comment on above: Arrived Start: 04-13-2021 End: 04-13-2021 Subsequent hospital visit by physician [facility] Covid19 Pat Screening Schedule [facility] Comment on above: Suspected COVID-19 v irus infection Start: 08-16-2020 End: 08-16-2020 Subsequent hospital visit by physician Shyam Reynolds [facility] Laboratory Comment on above: Mixed hyperlipidemia ; Uncontrolled type 2 diabetes mellitus with hyperglycemia (HCC) Start: 05-02-2020 End: 05-02-2020 Subsequent hospital visit by physician Shyam Reynolds [facility] Comment on above: Controlled type 2 di abetes mellitus without complication, without long-term current use of insulin (HCC); Mixed hyperlipidemia; Benign essential HTN Start: 02-26-2018 End: 02-27-2018 Patient encounter [facility] Procedures Date Procedure Procedure Detail [...] Raf Wilson MD Work Phone: Start: 04-14-2022 COVID-19, RAPID Raf Wilson MD Work Phone: Start: 03-15-2022 COVID-19, RAPID Shyam adan MD Work Phone: Start: 01-20-2022 Comprehensive metabo [...] GRIMALDO Work Phone: Start: 05-30-2020 Hemoglobin glycosyla ohlly a1c Shyam Back Work Phone: Start: 05-30-2020 [...] years Vaccine (2 of 2 - PPSV23) [facility] Start: 02-15-2027 DTaP/Tdap/Td vaccine (3 - Td or Tdap) DTaP/Tdap/Td vaccine (3 - Td or Tdap) [facility] Start: 02-15-2027 DTaP/Tdap/Td vaccine (3 - Td) DTaP/Tdap/Td vaccine (3 - Td) [facility] [place], [place] Start: 03-01-2024 GFR test (Diabetes, CKD 3-4, OR last GFR 15-59) GFR test (Diabetes, CKD 3-4, OR last GFR 15-59) [facility] Start: 03-01-2024 Hemoglobin A1c measurement A1C test (Diabetic or Prediabetic) [facility] Start: 03-01-2024 Lipid panel Lipids [facility] Start: 03-01-2024 Urine screening for protein Diabetic Alb to Cr ratio (uACR) test [facility] Start: 09-09-2023 End: 09-09-2023 Patient encounter procedure [facility] Comment on above: 6m check up Start: 08-23-2023 Depression Screen Depression Screen [facility] Start: 08-22-2023 GFR test (Diabetes, CKD 3-4, OR last GFR 15-59) GFR test (Diabetes, CKD 3-4, OR last GFR 15-59) [facility] Start: 08-22-2023 Lipid panel Lipids [facility] Start: 05-16-2023 End: 05-16-2023 Patient encounter procedure 05/16/2023 4:00 PM EDT Appointment [facility] [address] [place] [address] Marcial Chaves PT [facility] Start: 05-13-2023 End: 05-13-2023 Patient encounter procedure 05/13/2023 4:45 PM EDT Appointment [facility] [address] [place] [address] Nik Canales PTA [facility] Start: 05-09-2023 End: 05-09-2023 Patient encounter procedure 05/09/2023 4:30 PM EDT Appointment [facility] [address] [place] [address] Marcial Chaves, PT $ BCBS-20.00 Copay-Rt PT Tendon Dysfunction-Blue Lopez, Fax [phone] [facility] Comment on above: $ BCBS-20.00 Copay-R t PT Tendon Dysfunction-Blue Lopez, Fax [phone] Start: 04-25-2023 End: 04-25-2023 Patient encounter procedure 04/25/2023 Appointment Physical Therapy Marcial Chaves, PT [facility] Start: 04-23-2023 End: 04-23-2023 Patient encounter procedure 04/23/2023 Appointment Physical Therapy Nik Canales PTA [facility] Start: 04-17-2023 Subsequent hospital visit by physician 04/17/2023 Hospital Encounter Physical Therapy Marcial Chaves, PT [facility] Start: 03-19-2023 Influenza vaccination Flu vaccine (# 1) [facility] Start: 02-09-2023 Depression Screen Depression Screen [facility] Start: 01-20-2023 Hemoglobin A1c measurement A1C test (Diabetic or Prediabetic) [facility] Start: 01-20-2023 Lipid panel Lipids [facility] Start: 01-20-2023 Urine screening for protein Diabetic microalbuminuria test [facility] Start: 08-23-2022 End: 08-23-2022 Patient encounter procedure 08/23/2022 Office Visit Shyam Garcia MD [address] [place] [address] [facility] Start: 07-24-2022 Creatinine measurement Creatinine mo nitoring [facility] Start: 07-24-2022 Diabetic foot examination Diabetic f oot exam [facility] Start: 07-24-2022 Hemoglobin A1c measurement A1C test (Diabetic or Prediabetic) [facility] Start: 07-24-2022 Lipid panel [facility] Start: 07-24-2022 Potassium monitoring Potassium monit oring [facility] Start: 04-19-2022 Influenza vaccination [facility] Start: 03-19-2022 Influenza vaccination Flu vaccine (# 1) [facility] Start: 01-22-2022 End: 01-22-2022 Patient encounter procedure 01/22/2022 Office Visit Shyam Garcia MD [address] [place] [address] [facility] Start: 11-24-2021 Hemoglobin A1c measurement A1C test (Diabetic or Prediabetic) [facility] Work Phone: Start: 11-24-2021 Lipid panel Lipid screen [facility] Work Phone: Start: 08-30-2021 Depression Screen Depression Screen [facility] Start: 06-13-2021 End: 06-13-2021 Patient encounter procedure 06/13/2021 Office Visit Shyam Garcia MD [address] [place] [address] [phone] [facility] Start: 05-02-2021 [place] Start: 05-02-2021 Diabetic microalbumi dakota test Diabetic microalbuminuria test [facility] Start: 05-02-2021 HbA1c (Bld) [Mass fraction] A1C test (Diabetic or Prediabetic) [place] Start: 05-02-2021 Lipid panel Lipid screen [place], [place] Start: 05-02-2021 Potassium monitoring Potassium monit [place] Start: 05-02-2021 Urine screening for protein [facility] Start: 04-19-2021 Influenza vaccination Flu vaccine (# 1) [facility] Start: 10-05-2020 Creatinine measurement Creatinine mo [place] Start: 10-05-2020 HbA1c (Bld) [Mass fraction] A1C test (Diabetic or Prediabetic) [place] Start: 10-05-2020 Lipid panel Lipid screen [place] Start: 10-05-2020 Potassium monitoring Potassium monit [place] Start: 09-07-2020 Diabetic retinal exam Diabetic retin al exam [facility] Start: 09-07-2020 Glaucoma screening Diabetic retinal exam [facility] Start: 08-30-2020 End: 08-30-2020 Office Visit 08/30/2020 Office Visit Shyam Garcia MD [address] [place] [address] [phone] [facility] Start: 05-03-2020 End: 05-03-2020 Office Visit 05/03/2020 Office Visit Shyam Garcia MD [address] [place] [address] [phone] [facility] Start: 04-19-2020 Influenza vaccination Flu vaccine (# 1) [place] Start: 07-20-2019 Diabetic microalbumi dakota test Diabetic microalbuminuria test [place] Start: 02-15-2018 Diabetic foot examination Diabetic f oot exam [place] Start: 02-15-2018 Pneumococcal 0-64 ye ars Vaccine (2 - PCV) Pneumococcal 0-64 years Vaccine (2 - PCV) [facility] Start: 2001 Hepatitis B vaccine (1 of 3 - Risk 3-dose series) Hepatitis B vaccine (1 of 3 - Risk 3-dose series) [facility] Start: 2000 Hepatitis C screening Hepatitis C [facility] Start: 1997 HIV screening HIV screen [facility] Start: 1994 COVID-19 Vaccine (1) COVID-19 Vaccin e (1) [facility] Start: 1987 COVID-19 Vaccine (1) COVID-19 Vaccin e (1) [facility] Start: 1983 Varicella vaccine (1 of 2 - 2-dose childhood series) Varicella vaccine (1 of 2 - 2-dose childhood series) [facility] Start: 1982 COVID-19 Vaccine (#1) COVID-19 Vacci ne (#1) [facility] Start: 1982 Hepatitis B vaccine (1 of 3 - 3-dose series) Hepatitis B vaccine (1 of 3 - 3-dose series) [facility] Start: 1982 Hepatitis C screening Hepatitis C [facility] End: 02-12-2022 Cardiac event monitor Cardiac event monitor Cardiac Services Routine Palpitations 1 Occurrences starting 02/12/2022 until 02/12/2022 [facility] Work Phone: Comment on above: 1 Occurrences starti ng 02/12/2022 until 02/12/2022 End: 04-13-2021 COVID-19 COVID-19 Lab Routine Suspected COVID-19 virus infection 1 Occurrences starting 04/13/2021 until 04/13/2021 [facility] [employer] Phone: Comment on above: 1 Occurrences starti ng 04/13/2021 until 04/13/2021 COVID-19 [facility] Phone: End: 04-17-2021 COVID-19 [employer] Work Phone: Comment on above: One Time for 1 Occur rences starting 04/17/2021 until 04/17/2021 Once for 1 Occurrenc es starting 04/17/2021 until 04/17/2021 EKG 12 Lead EKG 12 Lead ECG STAT 04/14/2022 8:51 PM EDT [employer] [facility] Work Phone: End: 05-02-2020 HbA1c (Bld) [Mass fraction] Hemoglobin A1C Lab Routine Controlled type 2 diabetes mellitus without complication, without long-term current use of insulin ([facility]) 1 Occurrences starting 05/02/2020 until 05/02/2020 [facility] [place] Comment on above: 1 Occurrences starti ng 05/02/2020 until 05/02/2020 HbA1c (Bld) [Mass fraction] Hemoglobin A1C Lab Routine Controlled type 2 diabetes mellitus without complication, without long-term current use of insulin ([facility]) 05/02/2020 6:57 AM EDT [facility] [place] End: 01-20-2022 Hemoglobin A1c/Hemoglobin.total in Blood [employer] Work Phone: Comment on above: 1 Occurrences starti ng 01/20/2022 until 01/20/2022 Lactate [Moles/volum e] in Serum or Plasma [facility] Work Phone: End: 01-20-2022 Microalbumin / Creatinine Urine Ratio Microalbumin / Creatinine Urine Ratio Lab Routine Controlled type 2 diabetes mellitus without complication, without long-term current use of insulin ([facility]) 1 Occurrences starting 01/20/2022 until 01/20/2022 [facility] [employer] [facility] [employer] Work Phone: Comment on above: 1 Occurrences starti ng 01/20/2022 until 01/20/2022 Patient Education COVID-19 (Key navirus Disease 2019) (DC) [facility] Work Phone: Patient referral [facility] Work Phone: Immunizations Immunization Date Immunization Notes Care Provider Sharon boucher 02-15-2017 pneumococcal polysac charide vaccine, 23 valent Shyam Back [facility] [place] [place] 02-15-2017 tetanus toxoid, redu zulma diphtheria toxoid, and acellular pertussis vaccine, adsorbed [facility] 04-03-2010 tetanus toxoid, redu zulma diphtheria toxoid, and acellular pertussis vaccine, adsorbed [facility] Work Phone: Payers Date Payer Category Payer Unknown [id number] 2015 Unknown [id number] 1982 Unknown [id number] 2.16.8 [id number] 1982 Unknown [id number] 2.16.8 [id number] 1982 Unknown [id number] 2.16.8 [id number] 1982 Unknown [id number] 2.16.8 [id number] 1982 Unknown [id number] 2.16.8 [id number] 1982 Unknown [id number] 2.16.8 [id number] 1982 Unknown [id number] 2.16.8 [id number] 1982 Unknown [id number] 2.16.8 [id number] 1982 Unknown [id number] 2.16.8 [id number] 1982 Unknown [id number] 2.16.8 [id number] 1982 Unknown [id number] 2.16.8 [id number] 1982 Unknown [id number] 2.16.8 [id number] 1982 Unknown [id number] 2.16.8 [id number] 1982 Unknown [id number] 2.16.8 [id number] 1982 Unknown [id number] 2.16.8 [id number] 1982 Unknown [id number] 2.16.8 [id number] 1982 Unknown [id number] 2.16.8 [id number] Social History Date Type Detail Facility Start: 05-17-2020 End: 04-14-2022 Tobacco smoking status NHIS Never smoker [place] Start: 05-17-2020 End: 04-14-2022 Tobacco use and exposure Never used [place] Start: 05-17-2020 End: 02-09-2022 Alcohol intake Current drinker of alcohol (finding) [place] Start: 10-22-2019 History SDOH Financial 4 [place] Start: 10-22-2019 End: 02-07-2023 History SDOH Food Worry 1 [place] Start: 10-22-2019 End: 02-07-2023 History SDOH Transport Med 2 [place] Start: 08-06-2013 Alcohol Comment Rarely, maybe once a year [place] Start: 1980 Sex Assigned At Not on file M [place] Start: 02-24-2021 End: 02-07-2023 History SDOH Financial 5 [facility] Work Phone: Start: 04-23-2021 No [facility] Work Phone: Start: 04-23-2021 With Family [facility] Work Phone: Start: 04-23-2021 Concerned [facility] Work Phone: Start: 04-23-2021 None [facility] Work Phone: Start: 04-23-2021 Self [facility] Work Phone: Start: 1980 Sex Assigned At Female M [facility] Work Phone: Start: 12-22-2021 End: 04-14-2022 Exposure to SARS-CoV-2 (event) Not sure [employer] Start: 04-14-2022 End: 03-04-2023 Alcohol intake Ex-drinker (finding) [facility] Work Phone: Start: 02-07-2023 End: 03-04-2023 History of Social function [facility] Code Start: 02-07-2023 End: 03-04-2023 Tobacco use panel [facility] Code How hard is it for y ou to pay for the very basics like food, housing, medical care, and heating Not hard at all [facility] Code (I/We) worried maureen er (my/our) food would run out before (I/we) got money to buy more. Never true [employer] At any time in the p ast 12 months, were you homeless or living in half-way [including now]? No [facility] Medical Equipment Procedure Code Equipment Code Equipment Origin al Text Equipment Identifier Dates Carmen monitor wi th test strips and lancets. Test BS daily and prn. [id number] Start: 08-04-2013 Goals Date Patient Goal Desired Activity /State Functional Status Date Assessment Result Facility 04-27-2021 Functional status Ambulates [facility] Work Phone: 04-23-2021 Functional status Bathing Ability Indepen dent [facility] Work Phone: Mental Status Date Assessment Result Facility 04-27-2021 Cognitive function Appropriate;Cooperchris e [facility] Work Phone: 04-23-2021 Cognitive function No Impairment [facility] Work Phone: Clinical Notes 04-25-2021 to 04-17-2023 Marcial Chaves, PT - 04/17/2023 3:30 PM Claire Naranjo RN - 04/14/2022 9:06 PM Claire Naranjo RN - 04/14/2022 8:52 PM Karthik Duran, BANKRUPTCY LAW SPECIALIST - 02/12/2022 8:00 AM EDT Note Date & Type Note Facility 04-17-2023 History of Present illness Narrative Images from the original note were not included. [facility] Outpatient Physical Therapy Daily Note [...] compliance with HEP to optimize therapy progress Residential Goals Time Frame for Glass Polisher Goals : 8 visits Residential Goal 1: Patient will demonstrate right ankle MMT to 5/5 in all planes to allow improved ambulation [employer] Goal 2: Patient will demonstrate SLS on right x30 with low pain level Residential Goal 3: Patient will improve LEFS score from 27/80 to 60/80 to demonstrate functional improvement Post Treatment Pain: 10/26 Time In: 1530 Time Out : 1612 Timed Code Treatment Minutes: 28 Minutes Total Treatment Time: 42 Minutes Marcial Chaves, PT Date: 04/17/2023 documented in this encounter [employer] 04-14-2022 History of Present illness Narrative Patient contacted per patient request. Saud will be coming to the ER t osee patient at her request. Patient states that she thinks she is going to pass out. Patient placed in wheel chair and moved to room 8. EKG ordered. VSS. Patient visibly pale in the face. Patient eyes open and looking at check writer salesperson entire time and following all commands. documented in this encounter [employer] Phone: 02-12-2022 History of Present illness Narrative The patient was educated on the use of an event monitor. The patient's comprehension was high. The patient was able to verbalize recall. The patient was instructed on how and when to return the monitor. documented in this encounter [employer] Phone: 06-16-2021 Hospital Discharge instructions Additional Instructions [...] STOP. Call an acute care nurse at [phone] for any questions regarding these instructions. Your health information can be accessed through an application such as those used on a smartphone. Depending on the chosen application, you may be able to access information such as your medications, allergies, or lab results. If you are interested in using an application, please call the [employer] at [phone] We have appreciated the opportunity to be your healthcare provider. We sincerely hope that we have met your expectations. We strive for excellence. [employer] surveys are mailed to our customers after service is provided and we use your input from the completed and returned surveys to improve our care delivery. We encourage you to submit this feedback so that we may continue to be your hospital of choice. Thank you. Name of RN preparing this discharge: Nicolette Christie RN. [facility] Work Phone: 05-08-2021 Hospital Discharge [...] STOP. Call an acute care nurse at [phone] for any questions regarding these instructions. Your health information can be accessed through an application such as those used on a smartphone. Depending on the chosen application, you may be able to access information such as your medications, allergies, or lab results. If you are interested in using an application, please call the [employer] at [phone] We have appreciated the opportunity to be your healthcare provider. We sincerely hope that we have met your expectations. We strive for excellence. [employer] surveys are mailed to our customers after service is provided and we use your input from the completed and returned surveys to improve our care delivery. We encourage you to submit this feedback so that we may continue to be your hospital of choice. Thank you. Name of RN preparing this discharge: Nicolette hCristie RN. [facility] Work Phone: 2021 Hospital Discharge [...] STOP. Call an acute care nurse at [phone] for any questions regarding these instructions. Your health information can be accessed through an application such as those used on a smartphone. Depending on the chosen application, you may be able to access information such as your medications, allergies, or lab results. If you are interested in using an application, please call the [employer] at [phone] We have appreciated the opportunity to be your healthcare provider. We sincerely hope that we have met your expectations. We strive for excellence. [employer] surveys are mailed to our customers after service is provided and we use your input from the completed and returned surveys to improve our care delivery. We encourage you to submit this feedback so that we may continue to be your hospital of choice. Thank you. Name of RN preparing this discharge: Nicolette Christie RN. [facility] Work Phone: 04-27-2021 Note [facility] Patient: DELILAH MANCUSO DISCHARGE SUMMARY Admit Date: 04/23/21 /Age: 09 1980 Attending Physician: Júnior Valadez MD Med Rec #: [id number] Date: 04/27/21 Time of Encounter: 12:03 Provisional [...] reports loss of taste. He was taking dndp-ety-dnesulp medications for cough and fever but symptoms [...] #4 tablet 04/27/21 Primary Care Physician: DOCTOR HENDRICKSON - 1 week. Discharge Disposition: Home Total time spent at this encounter:: 35 minutes Authenticated on: 04/27/21 1205 [id number] CC: Júnior Valadez MD [facility] 04-27-2021 Hospital Discharge instructions Additional [...] STOP. Call an acute care nurse at [phone] for any questions regarding these instructions. Your health information can be accessed through an application such as those used on a smartphone. Depending on the chosen application, you may be able to access information such as your medications, allergies, or lab results. If you are interested in using an application, please call the [employer] at [phone] We have appreciated the opportunity to be your healthcare provider. We sincerely hope that we have met your expectations. We strive for excellence. [employer] surveys are mailed to our customers after service is provided and we use your input from the completed and returned surveys to improve our care delivery. We encourage you to submit this feedback so that we may continue to be your hospital of choice. Thank you. Name of RN preparing this discharge: Nicolette Christie RN. [facility] Work Phone: 04-26-2021 Note [facility] Patient: DELILAH MANCUSO PHYSICIAN PROGRESS NOTE Admit Date: 04/23/21 /Age: 09 1980 Attending Physician: Júnior Valadez MD Dictating Physician: Júnior Valadez MD Med Rec #: [id number] Date: 04/26/21 Time of Encounter: 10:42 Interval [...] 07/22/21 15:09 Albuterol Sulfate 2.5 mg/ (Ipratropium [place] 0.5 mg) 0 mg IH RESP PRN [...] mls @ 200 mls/hr IV DAILY [facility] Stop: 04/27/21 09:29 Last Admin: 04/26/21 09:49 Dose: 200 mls/hr Documented by: Levofloxacin/Dextrose (Levaquin Iv) 500 mg in 100 mls @ 100 mls/hr IV DAILY [facility] Stop: 05/04/21 09:59 Last Admin: 04/26/21 09:49 Dose: Not Given Documented by: Insulin Human Lispro (Insulin Lispro (Humalog) 1 Unit/0.01 Ml Inj) 0 unit SUBCUT TIDWM [facility]; Protocol Stop: 07/22/21 16:59 Last Admin: 04/26/21 08:00 Dose: 2 units Documented by: Lisinopril (Lisinopril (Zestril) 20 Mg Tablet) 20 mg PO DAILY [facility] Stop: 07/23/21 08:59 Last Admin: 04/26/21 08:13 Dose: 20 mg Documented by: Bisoprolol-Hctz 2.5- (6.25 Mg) 1 tab PO DAILY [facility] Stop: 07/23/21 08:59 Last Admin: 04/26/21 08:16 Dose: 1 tab Documented by: Non-Formulary Medication (Empagliflozin [Jardiance]) 10 mg PO DAILY [facility] Stop: 07/23/21 08:59 Last Admin: 04/26/21 [...] home occasions Morbid obesity, BMI 40 Meet [facility] Midnight Rule Requirement: Yes Hospital Certify Text: {This admission will require a hospital stay exceeding two midnights for the care and treatment of the following condition} Authenticated on: 04/26/21 [phone] [id number] [phone] CC: [facility] 04-25-2021 Note [facility] Patient: DELILAH MANCUSO PHYSICIAN PROGRESS NOTE Admit Date: 04/23/21 /Age: 09 1980 Attending Physician: Júnior Valadez MD Dictating Physician: Júnior Valadez MD Med Rec #: [id number] Date: 04/25/21 Time of Encounter: 11:34 Interval [...] 07/22/21 15:09 Albuterol Sulfate 2.5 mg/ (Ipratropium [place] 0.5 mg) 0 mg IH RESP PRN [...] 100 mls @ 100 mls/hr IV DAILY [facility] Stop: 05/04/21 09:59 Insulin Human Lispro (Insulin Lispro (Humalog) 1 Unit/0.01 Ml Inj) 0 unit SUBCUT TIDWM [facility]; Protocol Stop: 07/22/21 16:59 Last Admin: 04/25/21 08:20 Dose: 2 units Documented by: Lisinopril (Lisinopril (Zestril) 20 Mg Tablet) 20 mg PO DAILY [facility] Stop: 07/23/21 08:59 Last Admin: 04/25/21 08:21 Dose: 20 mg Documented by: Bisoprolol-Hctz 2.5- (6.25 Mg) 1 tab PO DAILY [facility] Stop: 07/23/21 08:59 Last Admin: 04/25/21 08:21 Dose: 1 tab Documented by: Non-Formulary Medication (Empagliflozin [Jardiance]) 10 mg PO DAILY [facility] Stop: 07/23/21 08:59 Last Admin: 04/25/21 [...] home occasions Morbid obesity, BMI 40 Meet [facility] Midnight Rule Requirement: Yes Hospital Certify Text: {This admission will require a hospital stay exceeding two midnights for the care and treatment of the following condition} Authenticated on: 04/25/21 1135 [id number] [phone] CC: [facility] 04-25-2021 Note [facility] Patient: DELILAH MANCUSO HISTORY AND PHYSICAL Admit Date: 04/23/21 /Age: 09 1980 Attending Physician: Júnior Valadez MD Med Rec #: [id number] Date: 04/24/21 Time of Encounter: 10:30 Chief [...] reports loss of taste. He was taking vqxr-ise-[id number] medications for cough and fever but symptoms [...] home occasions Morbid obesity, BMI 40 Meet [facility] Midnight Rule Requirement: Yes Hospital Certify Text: {This admission will require a hospital stay exceeding two midnights for the care and treatment of the following condition} - VTE Medications Was VTE prophylaxis medication prescribed?: Yes - VTE Device Was a VTE prophylaxis device ordered?: Yes Authenticated on: 04/25/21920 [id number] [phone] CC: Júnior Valadez MD [facility] Chief complaint+Reason for visit Narrative Reason for Visit Pneumonia due to COVID-19 virus [facility] Work Phone: Evaluation note* Diagnosis Suspected COVID-19 virus infection documented in this encounter [facility] Work Phone: evaluation note* Diagnosis Onset Date Resolution Status Pneumonia due to COVID-19 virus acute [facility] Work Phone: Evaluation note* Diagnosis Edema of left foot- Primary documented in this encounter [employer] Phone: evalszyukq note* Diagnosis Mixed hyperlipidemia Benign essential HTN Essential hypertension, benign Hair loss Alopecia, unspecified documented in this encounter [employer] Phone: evalpimnoz note* Diagnosis Lower abdominal pain- Primary Abdominal pain, other specified site documented in this encounter [employer] Phone: evalwuwryk note* Diagnosis Controlled type 2 diabetes mellitus without complication, without long-term current use of insulin (HCC) Mixed hyperlipidemia documented in this encounter [employer] Phone: evalbdquvd note* Diagnosis Palpitations documented in this encounter [employer] Phone: evalmbglnf note* Diagnosis Suspected COVID-19 virus infection documented in this encounter [employer] Phone: evalrueyfo note* Diagnosis COVID-19 virus infection- Primary Vasovagal near-syncope Syncope and collapse documented in this encounter [employer] Phone: evalnuwmzi note* Diagnosis Uncontrolled type 2 diabetes mellitus with hyperglycemia (HCC) Mixed hyperlipidemia Encounter for hepatitis C screening test for low risk patient Screening for human immunodeficiency virus without presence of risk factors Special screening examination for other specified viral diseases Benign essential HTN Essential hypertension, benign documented in this encounter [employer] Phone: Hospital Discharge instructions* Attachments The following attachments cannot be sent through Care Everywhere. * Edema: Leg and Ankle ([place]ambian) documented in this [facility] Phone: Hospital Discharge instructions* Attachments The following attachments cannot be sent through Care Everywhere. * Abdominal Pain ([place]ambian) documented in this [facility] Phone: Hospital Discharge instructions* Attachments The following attachments cannot be sent through Care Everywhere. 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 ACP-Advance Directive ACP-Power of Shoulder Boner Advance Directive Response Recorded Date/ Time State DNR No April 23, 11:49am Living Will No April 23 4:53pm Advanced Directives Not interested April 10:22am Advance Directive Response Recorded Date/ Time Advanced Directives Not interested April 10:22am Living Will No April 23 021 4:53pm State DNR No April 23 11:49am Documents on File Type Date Recorded 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 [address] Referral ID Status Reason Start Date Expiration Date Visits Re quested Visits Authorized [id number] Open 02/16/2022 02/16/2023 1 1 Additional Source Comments INFORMATION SOURCE (unrecogn ized section and content) DATE CREATED AUTHOR 02/27/2018 [facility] DATE CREATED AUTHOR AUTHOR'S ORGANIZ ATION 01/25/2020 [facility] DATE CREATED AUTHOR AUTHOR'S ORGANIZ ATION 04/24/2021 [facility] DATE CREATED AUTHOR AUTHOR'S ORGANIZ ATION 06/17/2021 [facility] DATE CREATED AUTHOR AUTHOR'S ORGANIZ ATION 09/08/2023 [facility] Reason for Visit (unrecogniz ed section [...] event monitor Shyam Reynolds MD [address] [place] [id number] Referral ID Status Reason Start Date Expiration Date Visits Re quested Visits Authorized [id number] Open 02/16/2022 02/16/2023 1 1 Reason Comments Fever 101.4 Generalized Body Aches States possible e xposure by student Care Teams (unrecognized sec tion and content) Rib Chopper Relationship Specialty Start Date End Date Shyam Reynolds MD [address] [id number] PCP - General Internal Medicine 10/11/11 Rib Chopper Relationship Specialty Start Date End Date Shyam Reynolds MD [address] [place] [address] PCP - General Internal Medicine 10/11/11 Rib Chopper Relationship Specialty Start Date End Date Back, MD Shyam [address] [id number] PCP - General Internal Medicine 10/11/11 Rib Chopper Relationship Specialty Start Date End Date Back, MD Shyam [address] [place] [address] PCP - General Internal Medicine 10/11/11 Rib Chopper Relationship Specialty Start Date End Date Back, MD Shyam [address] [facility] PCP - General Internal Medicine 10/11/11 Rib Chopper Relationship Specialty Start Date End Date Back, MD Shyam [address] [facility] PCP - General Internal Medicine 10/11/11 Rib Chopper Relationship Specialty Start Date End Date Back, MD Shyam [address] [id number] PCP - General Internal Medicine 10/11/11 Rib Chopper Relationship Specialty Start Date End Date Back, MD Shyam [address] [id number] PCP - General Internal Medicine 10/11/11 Rib Chopper Relationship Specialty Start Date End Date Back, MD Shyam [address] [id number] PCP - General Internal Medicine 10/11/11 Ordered [...] mL/hr, Administer over 1 Hours, ONCE, On 01/01/22 at 1415, For 1 dose 1416 (New [...] dose, Starting on 01/01/22 at 1518, Until Sat01/01/22 at 1528, Other 1528 (Given - Provid [...] BE BASED ON THE PRIMARY CLINICAL RECORDS. [facility] [employer] [facility]. provides no warranty or guarantee of the accuracy or completeness of information in this document.
== END 2023-10-08 08:59 | disposition home or self-care (01) ==
LOC: RAD 08:58
PROVIDERS: Visit Provider Podiatrist Foot & Ankle Surgery
DX: M66.871 Spontaneous rupture of other tendons, right ankle and foot (principal); M79.671 Pain in right foot; Z98.890 Other specified postprocedural states
CPT/HCPCS: 73630

== ENCOUNTER 2024-01-21 09:11 | Outpatient (OUT) | payer BC, SELFPAY ==
--- NOTE | 2024-01-21 | XR_ITS ---
The [address] [address] Patient Name: DELILAH MANCUSO MRN: [id number] date: 1980 Sex: F Assigned Patient Location: Current Patient Location: Accession/Order Number: [id number] Exam Date: 01/21/2024 09:11 Report Date: 01/22/2024 11:39 At the request of: DANIE AYERS Procedure: XR ankle RT min 3V PROCEDURE: XR ankle RT min 3V, XR foot RT min 3V HISTORY: RIGHT ANKLE PAIN COMPARISON: XR right foot 10/08/2023, XR right ankle 05/29/2023 FINDINGS: BONES:Prior anterior posterior calcaneal osteotomy and realignment with anterior wedge placement. Osteotomy and wedge placement within the medial cuneiform. Mild bunion formation. No fracture, dislocation, or significant degenerative joint disease. SOFT TISSUES:No visible soft tissue swelling. EFFUSION:None visible. OTHER: Negative. XR/XR ankle RT min 3V IMPRESSION: 1. Stable surgical changes without evidence of hardware failure or change in alignment. 2. Mild bunion formation. Electronically authenticated by: MILES WILKINS Date: 01/22/2024 11:39
--- NOTE | 2024-01-21 | XR_ITS ---
The [address] [address] Patient Name: DELILAH MANCUSO MRN: [id number] date: 1980 Sex: F Assigned Patient Location: Current Patient Location: Accession/Order Number: [id number] Exam Date: 01/21/2024 09:11 Report Date: 01/22/2024 11:39 At the request of: DANIE AYERS Procedure: XR foot RT min 3V PROCEDURE: XR ankle RT min 3V, XR foot RT min 3V HISTORY: RIGHT ANKLE PAIN COMPARISON: XR right foot 10/08/2023, XR right ankle 05/29/2023 FINDINGS: BONES:Prior anterior posterior calcaneal osteotomy and realignment with anterior wedge placement. Osteotomy and wedge placement within the medial cuneiform. Mild bunion formation. No fracture, dislocation, or significant degenerative joint disease. SOFT TISSUES:No visible soft tissue swelling. EFFUSION:None visible. OTHER: Negative. XR/XR foot RT min 3V IMPRESSION: 1. Stable surgical changes without evidence of hardware failure or change in alignment. 2. Mild bunion formation. Electronically authenticated by: MILES WILKINS Date: 01/22/2024 11:39
== END 2024-01-21 09:12 | disposition home or self-care (01) ==
LOC: EC 09:11
PROVIDERS: Visit Provider Podiatrist Foot & Ankle Surgery
DX: S86.111S Strain of other muscle(s) and tendon(s) of posterior muscle group at lower leg level, right leg, sequela (principal); M79.671 Pain in right foot; Z98.890 Other specified postprocedural states
CPT/HCPCS: 73610; 73630

== ENCOUNTER 2024-02-06 08:56 | Outpatient (OUT) | payer BC, SELFPAY ==
--- NOTE | 2024-02-06 09:02 | CT_ITS ---
[address] [address] Patient Name: DELILAH MANCUSO MRN: [id number] date: 1980 Sex: F Assigned Patient Location: CT Current Patient Location: Accession/Order Number: [id number] Exam Date: 02/06/2024 09:34 Report Date: 02/07/2024 06:14 At the request of: STARLA DIXON Procedure: CT foot RT wo con EXAMINATION: CT foot RT wo con HISTORY: Nonunion Osteotomy Right Foot M89.8X7 COMPARISON: XR foot right 01/21/2024 TECHNIQUE: Multi-planar CT images were created without and/or with IV contrast according to examination type. Dose reduction techniques were achieved by using automated exposure control and/or adjustment of mA and/or kV according to patient size and/or use of iterative reconstruction technique. FINDINGS: BONES: Posterior calcaneal osteotomy and realignment with osseous fusion. Anterior calcaneal osteotomy and wedge placement with suspected partial osseous fusion. Osteotomy and wedge placement within medial cuneiform with suspected partial osseous fusion. SOFT TISSUES: Mild soft tissue swelling. EFFUSION: None visible. OTHER: Negative. CT/CT foot RT wo con IMPRESSION: 1. Stable surgical changes without evidence of hardware failure or change in alignment. 2. Incomplete osseous healing of anterior calcaneal osteotomy and medial cuneiform osteotomy. Electronically authenticated by: MILES WILKINS Date: 02/07/2024 06:14
== END 2024-02-06 08:57 | disposition home or self-care (01) ==
LOC: CT 08:56
PROVIDERS: Visit Provider Physician Assistant
DX: M89.8X7 Other specified disorders of bone, ankle and foot (principal); Z98.890 Other specified postprocedural states
CPT/HCPCS: 73700

== ENCOUNTER 2024-05-20 13:56 | Outpatient (OUT) | payer BC, SELFPAY ==
--- NOTE | 2024-05-20 | XR_ITS ---
The [address] [address] Patient Name: DELILAH MANCUSO MRN: [id number] date: 1980 Sex: F Assigned Patient Location: Current Patient Location: Accession/Order Number: [id number] Exam Date: 05/20/2024 13:56 Report Date: 05/21/2024 08:32 At the request of: DANIE AYERS Procedure: XR foot RT min 3V PROCEDURE: XR foot RT min 3V COMPARISON: 01/21/2024 HISTORY: RIGHT FOOT PAIN FINDINGS: BONES:Partial pes planus. Posterior calcaneal osteotomy with increase in bony bridging. Anterior calcaneal and medial cuneiform osteotomy with wedged spacer placements. Moderate hallux valgus. Mild to moderate degenerative changes with joint space narrowing and marginal osteophyte formation SOFT TISSUES:Negative. No visible soft tissue swelling. EFFUSION:None visible. OTHER: Negative. XR/XR foot RT min 3V IMPRESSION: Stable postsurgical changes with continued bony bridging across the posterior calcaneal osteotomy Electronically authenticated by: KARTIK LOPEZ Date: 05/21/2024 08:32
--- OUTSIDE RECORDS SUMMARY | 2024-05-20 14:08 | XMS_ITS | CCD ---
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 Name Role Phone BACK, SHYAM Unavailable Unavailable BACK, SHYAM Unavailable Unavailable Back, Shyam Primary Care Provider [phone] Back Shyam RODRIGUEZ Primary Care Provider [phone] MD RAMIREZ GRIMALDO Emergency Provider MD JÚNIOR VALADEZ Admit Provider MD JÚNIOR VALADEZ Attending Provider Back Shyam RODRIGUEZ Primary Care Provider Back Shyam RODRIGUEZ Primary Care Provider [phone] Back Shyam RODRIGUEZ Primary Care Provider Back Shyam RODRIGUEZ Primary Care Provider BACK, SHYAM Primary Care Unavailable HIGHLANDER, PETER D Referring Unavailable BACK, SHYAM Primary Care Unavailable BACK, SHYAM Referring Unavailable BACK, SHYAM Primary Care Unavailable HIGHLANDER, PETER D Referring Unavailable HIGHLANDER, PETER D Referring Unavailable BACK, SHYAM Primary Care Unavailable BACK, SHYAM Primary Care Unavailable HIGHLANDER, PETER D Referring Unavailable BACK, SHYAM Primary Care Unavailable HIGHLANDER, PETER D Referring Unavailable HIGHLANDER, PETER D Referring Unavailable BACK, SHYAM Primary Care Unavailable BACK, SHYAM Primary Care Unavailable HIGHLANDER, PETER D Referring Unavailable BACK, SHYAM Primary Care Unavailable HIGHLANDER, PETER D Referring Unavailable BACK, SHYAM Primary Care Unavailable HIGHLANDER, PETER D Referring Unavailable BACK, SHYAM Primary Care Unavailable HIGHLANDER, PETER D Referring Unavailable BACK, SHYAM Primary Care Unavailable HIGHLANDER, PETER D Referring Unavailable BACK, SHYAM Primary Care Unavailable HIGHLANDER, PETER D Referring Unavailable BACK, SHYAM Primary Care Unavailable HIGHLANDER, PETER D Referring Unavailable BACK, SHYAM Primary Care Unavailable HIGHLANDER, PETER D Referring Unavailable BACK, SHYAM Primary Care Unavailable HIGHLANDER, PETER D Referring Unavailable BACK, SHYAM Primary Care Unavailable HIGHLANDER, PETER D Referring Unavailable BACK, SHYAM Primary Care Unavailable HIGHLANDER, PETER D Referring Unavailable BACK, SHYAM Primary Care Unavailable HIGHLANDER, PETER D Referring Unavailable BACK, SHYAM Primary Care Unavailable HIGHLANDER, PETER D Referring Unavailable BACK, SHYAM Primary Care Unavailable HIGHLANDER, PETER D Referring Unavailable BACK, SHYAM Primary Care Unavailable HIGHLANDER, PETER D Referring Unavailable BACK, SHYAM Referring Unavailable BACK, SHYAM Primary Care Unavailable HIGHLANDER, PETER D Referring Unavailable BACK, SHYAM Primary Care Unavailable BACK, SHYAM Primary Care Unavailable HIGHLANDER, PETER D Referring Unavailable BACK, SHYAM Primary Care Unavailable HIGHLANDER, PETER D Referring Unavailable BACK, SHYAM Primary Care Unavailable HIGHLANDER, PETER D Referring Unavailable BACK, SHYAM Primary Care Unavailable HIGHLANDER, PETER D Referring Unavailable HIGHLANDER, PETER D Referring Unavailable BACK, SHYAM Primary Care Unavailable BACK, SHYAM Primary Care Unavailable HIGHLANDER, PETER D Referring Unavailable BACK, SHYAM Primary Care Unavailable HIGHLANDER, PETER D Referring Unavailable Allergies Allergy Classification Reported Allergen(s) Allergy Type Date of Onset Reaction(s) Facility (20 sources) Amoxicillin Drug Allergy 4 Nausea Only [place], [place] (20 sources) Chlorine Propensity to adverse reactions to drug 3 Hives [place], [place] (16 sources) Lavender Oil Propensity to adverse reactions to drug 1 Shortness Of Breath [facility] Medications Current Medications Medication Drug Class(es) Dates Sig (Normalized) Sig (Original) [id number] actuat albuterol 0.09 mg/actuat metered dose inhaler (20 sources) beta2-Adrenergic Agonist Start: 10-23-2019 take 2 [...] PO DAILY April 27, 2021 11:59am aspirin 81 mg delayed release oral tablet (13 sources) Platelet Aggregation Inhibitor, Nonsteroidal Anti-inflammatory Drug Start: 08-16-2023 take 1 tablet by mouth twice daily ASPIRIN LOW DOSE 81 MG EC tablet TAKE 1 TABLET BY MOUTH TWICE DAILY FOR 30 DAYS 0 08/16/2023 Active Start: 04-27-2021 take 325 mg by mouth once niecy y Aspirin Active 325 MG PO DAILY April [...] sources) Thiazide Diuretic, beta-Adrenergic Yandel Start: 10-16-2021 bisoprolol-hydroCHL OROthiazide (ZIAC) 2.5-6.25 MG per tablet Indications: Benign [...] DAILY 90 tablet 4 08/17/2019 Active cholecalciferol 0.125 mg oral capsule (12 sources) Vitamin D Start: 06-27-2023 take 1 capsule by mouth once daily Cholecalciferol (VITAMIN D3) 125 MCG (5000 UT) CAPS Take 1 capsule by mouth daily 0 06/27/2023 Active Start: 04-27-2021 take 1 tablet by pam th once daily Cholecalciferol (Vitamin D3) 1,000 UNIT Tablet Active 1000 UNIT PO DAILY 30 April 27, 2021 12:00pm dexamethasone 6 mg oral tablet (7 sources) Corticosteroid Start: 04-27-2021 take 1 tablet by mouth once daily Dexamethasone (Decadron) 6 MG Tablet Active 6 MG PO DAILY 12 21April 27, 2021 11:57am dextromethorphan hydrobromide 15 mg / guaiFENesin 400 mg / pseudoephedrine hydrochloride 60 mg oral tablet (7 sources) alpha-Adrenergic Agonist, Uncompetitive N-cfudib-H-aspartat e Receptor Antagonist, Sigma-1 Agonist Start: 04-23-2021 Guaifenesin/Dm/Pse udoephedrine (Capmist Dm Tablet) 1 EACH Tablet Active 1 TAB PO NEEDED April 23, 2021 12:23pm empagliflozin 10 mg oral tablet (20 sources) Sodium-Glucose Cotransporter 2 Inhibitor Start: 11-04-2023 take 1 tablet by mouth once daily empagliflozin (JARDIANCE) 10 MG tablet Indications: Uncontrolled type 2 diabetes mellitus with hyperglycemia (HCC) Take 1 tablet by mouth daily 30 tablet 0 11/04/2023 Active Start: 10-23-2023 empagliflozin (JARDIANCE) 10 MG tablet Indications: Uncontrolled type 2 diabetes mellitus with hyperglycemia (HCC) TAKE 1 TABLET DAILY 90 tablet 1 10/23/2023 Active Start: 2023 JARDIANCE 10 M G tablet Indications: Uncontrolled [...] tablet 1 11/20/2021 Active Start: 04-17-2021 lisinopril (VA INIVIL;ZESTRIL) 20 MG tablet Indications: Benign essential HTN TAKE 1 TABLET DAILY 90 tablet 1 04/17/2021 Active Start: 11-09-2020 lisinopril (VA INIVIL;ZESTRIL) 20 MG tablet Indications: Benign essential HTN TAKE 1 TABLET DAILY 90 tablet 1 11/09/2020 Active Start: 08-17-2019 lisinopril (VA INIVIL;ZESTRIL) 20 MG tablet Indications: Benign essential HTN TAKE 1 TABLET DAILY 90 tablet 4 08/17/2019 Active Loratadine (20 sources) Loratadine (CLAR ITIN PO) Take by mouth daily. 0 Active metFORMIN hydrochloride 1000 mg oral tablet (20 sources) Biguanide Start: 11-11-2023 metFORMIN (GLU COPHAGE) 1000 MG tablet Indications: Controlled type 2 diabetes mellitus without complication, without long-term current use of insulin (HCC) TAKE 1 TABLET TWICE A DAY WITH MEALS 180 tablet 3 11/11/2023 Active Start: 05-14-2023 metFORMIN (GLU COPHAGE) 1000 MG tablet Indications: Controlled type 2 diabetes mellitus without complication, without long-term current use of insulin (HCC) TAKE 1 TABLET TWICE A DAY WITH MEALS 180 tablet 1 05/14/2023 Active Start: 11-15-2022 metFORMIN (GLU COPHAGE) 1000 MG [...] 1 11/24/2019 Active Multiple Vitamin (MULTI-VITAMIN PO) (20 sources) Multiple Vitamin (MULTI-VITAMIN PO) Take by [...] 01-01-2022 ondansetron (ZOFRAN) injecti on 4 mg tiZANidine 2 mg oral tablet (5 sources) Central alpha-2 Adrenergic Agonist Start: 06-27-2023 take 1 tablet by mouth three times daily as needed tiZANidine (ZANAFLEX) 2 MG tablet TAKE 1 TABLET BY MOUTH THREE TIMES DAILY NEEDED for muscle spasticity FOR 7 DAYS 0 06/27/2023 Active VITAMIN D PO (1 source) VITAMIN D [...] [Eczema of face] 04-09-2012 Chronic Allergic reactions (19 sources) Facial eczema; Translations: [Facial eczema] 04-09-2012 Episodic Cardiac dysrhythmias (1 source) Palpitations; Translations: [Palpitations] Episodic Diabetes mellitus without complication (15 sources) Type 2 diabetes mellitus without complications; [...] Episodic Other nutritional; endocrine; and metabolic disorders (19 sources) Severe obesity; Translations: [Morbid (severe) obesity due to excess calories] Onset: 05-03-2020 05-03-2020 Chronic Other skin disorders (1 source) Loss of hair; Translations: [Nonscarring hair loss, unspecified] Episodic Residual codes; unclassified (1 source) Edema of foot; Translations: [Localized edema] Episodic Syncope (1 source) Vasovagal symptom; Translations: [Syncope and collapse] Episodic Unclassified (2 sources) History of abdominal hysterectomy; Translations: [H/O abdominal hysterectomy] Onset: 01-15-2020 01-18-2020 Viral infection (15 sources) COVID-19; Translations: [Pneumonia due to COVID-19 virus] Episodic Past or Other Problems Problem Classification Problem Date Documented Da te Episodic/Chronic Acquired foot deformities (2 sources) Valgus deformity, not elsewhere classified, right ankle; Translations: [Valgus deformity, not elsewhere classified, right ankle] Onset: 11-19-2023 Episodic Diabetes mellitus with complications (20 sources) Type II diabetes mellitus uncontrolled; Translations: [Type 2 diabetes mellitus with hyperglycemia] Onset: 12-20-2014 Resolved: 08-23-2022 05-03-2020 Chronic Diabetes mellitus without complication (20 sources) Hyperglycemia; Translations: [Hyperglycemia, unspecified] Onset: 07-28-2013 Resolved: 06-01-2014 06-01-2014 Episodic Other connective tissue disease (2 sources) Posterior tibial tendinitis, right leg; Translations: [Posterior tibial tendinitis, right leg] Onset: 05-07-2023 Episodic Residual codes; unclassified (18 sources) History of abdominal hysterectomy; Translations: [Acquired absence of both cervix and uterus] Onset: 01-15-2020 01-18-2020 Episodic Residual codes; unclassified (8 sources) Bilateral lower leg edema; Translations: [Localized edema] Onset: 03-04-2023 03-04-2023 Episodic Results Test Name Value Interpretation Reference Range Facility Hemoglobin A1Con 03-22-2024 Glucose [Mass/Vol] 160 mg/dL Normal [facility] Comment on above: Result Comment: The ADA and AACC recommend providing the estimated average glucose result to permit better patient understanding of their HBA1c result. Performed By: #### U RNMAB, GLYHGB, LIPR #### [facility] [place] [address] Crew Member: Virgil Shelton MD #### RASHAWN, CP #### [facility] [address] [place] [address] Crew Member: Leonides Brunner MD HbA1c (Bld) [Mass fraction] 7.2 % High 4.0-6.0 [facility] Comment on above: Performed By: #### U RNMAB, GLYHGB, LIPR #### [address] [address] Crew Member: Virgil Shelton MD #### RASHAWN, CP #### [facility] [address] [place], [place] [id number] Crew Member: Leonides Brunner MD Comp Metabolic Profon 2023 Albumin [Mass/Vol] 4.1 g/dL Normal 3.5-5.2 [facility] Comment on above: Performed By: #### U RNMAB, GLYHGB, LIPR #### [address] [address] Crew Member: Virgil Shelton MD #### ZFAST, CP #### [facility] [address] [place], [place] [id number] Crew Member: Leonides Brunner MD Alkaline Phos 84 U/L Normal 35-104 [facility] Comment on above: Performed By: #### U RNMAB, GLYHGB, LIPR #### [facility] [address] [place], [place] [id number] Crew Member: Virgil Shelton MD #### ZFAST, CP #### [facility] [address] [place], [place] [id number] Crew Member: Leonides Brunner MD ALT [Catalytic activity/Vol] 24 U/L Normal 5-33 [facility] Comment on above: Performed By: #### U RNMAB, GLYHGB, LIPR #### [facility] [address] [place], [place] [id number] Crew Member: Virgil Shelton MD #### RASHAWN, CP #### [facility] [address] [place], [place] [phone] Crew Member: Leonides Brunner MD Anion gap [Moles/Vol] 17 mmol/L Normal 9-17 [facility] Comment on above: Performed By: #### U RNMAB, GLYHGB, LIPR #### [facility] [address] [place], [place] [phone] Crew Member: Virgil Shelton MD #### RASHAWN, CP #### [facility] [address] [place], [place] [phone] Crew Member: Leonides Brunner MD AST [Catalytic activity/Vol] 15 U/L Normal <32 [facility] Comment on above: Performed By: #### U RNMAB, GLYHGB, LIPR #### [facility] [address] [place], [place] [id number] Crew Member: Virgil Shelton MD #### ZFAST, CP #### [facility] [address] [place], [place] [phone] Crew Member: Leonides Brunenr MD Bilirubin [Mass/Vol] 0.4 mg/dL Normal 0.3-1.2 [facility] Comment on above: Performed By: #### U RNMAB, GLYHGB, LIPR #### [facility] [address] [place] [address] Crew Member: Virgil Shelton MD #### ZFAST, CP #### [facility] [address] [place] [address] Crew Member: Leonides Brunner MD BUN/CRE Ratio 20 Normal 9-20 [facility] Comment on above: Performed By: #### U RNMAB, GLYHGB, LIPR #### [facility] [address] [place] [address] Crew Member: Virgil Shelton MD #### RASHAWN, CP #### [facility] [address] [place], [place] [phone] Crew Member: Leonides Brunner MD Calcium [Mass/Vol] 9.2 mg/dL Normal 8.6-10.4 [facility] Comment on above: Performed By: #### U RNMAB, GLYHGB, LIPR #### [facility] [address] [place] [address] Crew Member: Virgil Shelton MD #### ABILIOAST, CP #### [facility] [address] [place], [place] [phone] Crew Member: Leonides Brunner MD Chloride [Moles/Vol] 101 mmol/L Normal 98-107 [facility] Comment on above: Performed By: #### U RNMAB, GLYHGB, LIPR #### [facility] [address] [place] [address] Crew Member: Virgil Shelton MD #### ZFAST, CP #### [facility] [address] [place] [address] Crew Member: Leonides Brunner MD CO2 [Moles/Vol] 17 mmol/L Low 20-31 [facility] Comment on above: Performed By: #### U RNMAB, GLYHGB, LIPR #### [facility] [address] [place], [place] [id number] Crew Member: Virgil Shelton MD #### RASHAWN, CP #### [facility] [address] [place], [place] [phone] Crew Member: Leonides Brunner MD Creatinine [Mass/Vol] 0.7 mg/dL Normal 0.5-0.9 [facility] Comment on above: Performed By: #### U RNMAB, GLYHGB, LIPR #### [address] [phone] Crew Member: Virgil Shelton MD #### RASHAWN, CP #### [facility] [address] [place], [place] [phone] Crew Member: Leonides Brunner MD GFR/1.73 sq M.predicted among non-blacks MDRD (S/P/Bld) [Vol rate/Area] mL/min/{1.73_m2} Normal >60 [facility] Comment on above: Result Comment: These results [...] affects renal tubular secretion. Performed By: #### U RNMAB, GLYHGB, LIPR #### [facility] [address] [place], [place] [phone] Crew Member: Virgil Shelton MD #### RASAHWN, CP #### [facility] [address] [place], [place] [phone] Crew Member: Leonides Brunner MD Glucose [Mass/Vol] 169 mg/dL High 70-99 [facility] Comment on above: Performed By: #### U RNMAB, GLYHGB, LIPR #### [facility] [address] [place] [address] Crew Member: Virgil Shelton MD #### ZFAST, CP #### [facility] [address] [place] [address] Crew Member: Leonides Brunner MD Potassium [Moles/Vol] 3.7 mmol/L Normal 3.7-5.3 [facility] Comment on above: Performed By: #### U RNMAB, GLYHGB, LIPR #### [address] [address] Crew Member: Virgil Shelton MD #### RASHAWN, CP #### [facility] [address] [place], [place] [phone] Crew Member: Leonides Brunner MD Protein [Mass/Vol] 7.4 g/dL Normal 6.4-8.3 [facility] Comment on above: Performed By: #### U RNMAB, GLYHGB, LIPR #### [address] [address] Crew Member: Virgil Shelton MD #### RASHAWN, CP #### [facility] [address] [place], [place] [phone] Crew Member: Leonides Brunner MD Sodium [Moles/Vol] 135 mmol/L Normal 135-144 [facility] Comment on above: Performed By: #### U RNMAB, GLYHGB, LIPR #### [facility] [address] [place] [address] Crew Member: Virgil Shelton MD #### ZFAST, CP #### [facility] [address] [place] [address] Crew Member: Leonides Brunner MD Urea nitrogen [Mass/Vol] 14 mg/dL Normal 6-20 [facility] Comment on above: Performed By: #### U RNMAB, GLYHGB, LIPR #### [facility] [address] [place] [address] Crew Member: Virgil Shelton MD #### ZFAST, CP #### [facility] [address] [place] [address] Crew Member: Leonides Brunner MD Comprehensive Metabolic Pane [facility] 03-21-2024 Albumin [Mass/Vol] 4.1 g/dL 3.5 - 5.2 g/dL [facility] ALP [Catalytic activity/Vol] 84 U/L 35 - 104 U/L [facility] ALT [Catalytic activity/Vol] 24 U/L 5 - 33 U/L [facility] Anion gap [Moles/Vol] 17 mmol/L 9 - 17 mmol/L [facility] AST [Catalytic activity/Vol] 15 U/L NINF - 32 U/L [facility] Bilirubin [Mass/Vol] 0.4 mg/dL 0.3 - 1 .2 mg/dL [facility] Calcium [Mass/Vol] 9.2 mg/dL 8.6 - 10. 4 mg/dL [facility] Chloride [Moles/Vol] 101 mmol/L 98 - 10 7 mmol/L [facility] CO2 [Moles/Vol] 17 mmol/L Low 20 - 31 mmol/L [facility] Creatinine [Mass/Vol] 0.7 mg/dL 0.5 - 0.9 mg/dL [facility] Est, Glom Filt Rate - PINF [facility] Comment on above: These results are not intended for use [...] that affects renal tubular secretion. Glucose [Mass/Vol] 169 mg/dL High 70 - 99 mg/dL [facility] Interpretation and review of laboratory results Abnormal [facility] Potassium [Moles/Vol] 3.7 mmol/L 3.7 - 5.3 mmol/L [facility] Protein [Mass/Vol] 7.4 g/dL 6.4 - 8.3 g/dL [facility] Sodium [Moles/Vol] 135 mmol/L 135 - 144 mmol/L [facility] Urea nitrogen [Mass/Vol] 14 mg/dL 6 - 20 mg/dL [facility] Urea nitrogen/Creatinine [Mass ratio] 20 mg/mg 9 - 20 [facility] Lipid Panelon 03-21-2024 Cholesterol [Mass/Vol] 205 mg/dL High 0 - 199 mg/dL [facility] Comment on above: Cholesterol Guidelines: <200 Desirable 200-240 Borderline >240 Undesirable Cholesterol in HDL [Mass/Vol] 46 mg/dL 40 - PINF mg/dL [facility] Comment on above: HDL Guidelines: <40 Undesirable 40-59 Borderline >59 Desirable Cholesterol in LDL [Mass/Vol] 92 mg/dL 0 - 100 mg/dL [facility] Comment on above: LDL Guidelines: <100 Desirable 100-129 Near to/above Desirable 130-159 Borderline >159 Undesirable Direct (measured) LDL and calculated LDL are not interchangeable tests. Cholesterol in VLDL [Mass/Vol] 67 mg/dL [facility] Cholesterol.total/Ch olesterol in HDL [Mass ratio] 4.0 {ratio} [facility] Interpretation and review of laboratory results Abnormal [facility] Triglyceride [Mass/Vol] 337 mg/dL High NINF - 150 mg/dL [facility] Comment on above: Triglyceride Guidelines: <150 Desirable 150-199 Borderline 200-499 High >499 Very high Based on AHA Guidelines for fasting triglyceride, May 2012. [facility] Lipid Profileon 03-21-2024 Cholesterol [Mass/Vol] 205 mg/dL High 0-199 [facility] Comment on above: Result Comment: Cholesterol Guidelines: <200 Desirable 200-240 Borderline >240 Undesirable Performed By: #### U RNMAB, GLYHGB, LIPR #### [facility] [address] [place] [address] Crew Member: Virgil Shelton MD #### ABILIOAST, CP #### [facility] [address] [place] [address] Crew Member: Leonides Brunner MD Cholesterol in HDL [Mass/Vol] 46 mg/dL Normal >40 [facility] Comment on above: Result Comment: HDL Guidelines: <40 Undesirable 40-59 Borderline >59 Desirable Performed By: #### U RNMAB, GLYHGB, LIPR #### [address] [address] Crew Member: Virgil Shelton MD #### ABILIOAST, CP #### [facility] [address] [place], [place] [phone] Crew Member: Leonides Brunner MD Cholesterol in LDL [Mass/Vol] 92 mg/dL Normal 0-100 [facility] Comment on above: Result Comment: LDL Guidelines: <100 Desirable 100-129 Near to/above Desirable 130-159 Borderline >159 Undesirable Direct (measured) LDL and calculated LDL are not interchangeable tests. Performed By: #### U RNMAB, GLYHGB, LIPR #### [address] [address] Crew Member: Virgil Shelton MD #### RASHAWN, CP #### [facility] [address] [place], [place] [phone] Crew Member: Leonides Brunner MD Cholesterol in VLDL [Mass/Vol] 67 mg/dL Normal [facility] Comment on above: Performed By: #### U RNMAB, GLYHGB, LIPR #### [address] [address] Crew Member: Virgil Shelton MD #### ABILIOAST, CP #### [facility] [address] [place], [place] [phone] Crew Member: Leonides Brunner MD Cholesterol.total/Ch olesterol in HDL [Mass ratio] 4.0 {ratio} Normal [facility] Comment on above: Performed By: #### U RNMAB, GLYHGB, LIPR #### [facility] [address] [place] [address] Crew Member: Virgil Shelton MD #### ABILIOAST, CP #### [facility] [address] [place] [address] Crew Member: Leonides Brunner MD Triglyceride [Mass/Vol] 337 mg/dL High <150 [facility] Comment on above: Result Comment: Triglyceride Guidelines: <150 Desirable 150-199 Borderline 200-499 High >499 Very high Based on AHA Guidelines for fasting triglyceride, May 2012. Performed By: #### U RNMAB, GLYHGB, LIPR #### [address] [address] Crew Member: Virgil Shelton MD #### ABILIOAST, CP #### [facility] [address] [place], [place] [phone] Crew Member: Leonides Brunner MD Microalb.,Random Uron 2023 Creatinine [Mass/Vol] 132.0 mg/dL Normal 28.0-217.0 [facility] Comment on above: Performed By: #### U RNMAB, GLYHGB, LIPR #### [facility] [address] [place] [address] Crew Member: Virgil Shelton MD #### ABILIOAST, CP #### [facility] [address] [place], [place] [phone] Crew Member: Leonides Brunner MD Microalb/Creat Ratio Can not be calculated Normal 0.0- 25.0 [facility] Comment on above: Performed By: #### U RNMAB, GLYHGB, LIPR #### [facility] [address] [place] [address] [id number] Crew Member: Virgil Shelton MD #### ZFAST, CP #### [facility] [address] [place], [place] [phone] Crew Member: Leonides Brunner MD Microalbumin conc. <12 Normal 0-20 [facility] Comment on above: Performed By: #### U RNMAB, GLYHGB, LIPR #### [facility] [address] [place], [place] [phone] Crew Member: Virgil Shelton MD #### ZFAST, CP #### [facility] [address] [place], [place] [phone] Crew Member: Leonides Brunner MD Microalbumin, Uron 4 Albumin DL <= 20 mg/L (U) [Mass/Vol] mg/L 0 - 20 mg/L [facility] Albumin/Creatinine DL <= 20 mg/L (U) [Ratio] Can not be calculated [facility] Creatinine (U) [Mass/Vol] 132.0 mg/dL 28.0 - 217.0 mg/dL [facility] Patient fasting?on 4 Patient fasting? YES Normal [facility] Comment on above: Performed By: #### U RNMAB, GLYHGB, LIPR #### [id number] [place], [place] [phone] Crew Member: Virgil Shelton MD #### ZFAST, CP #### [facility] [address] [place], [place] [phone] Crew Member: Leonides Brunner MD Hemoglobin A1Con 09-08-2023 Glucose [Mass/Vol] 128 mg/dL Normal [facility] Comment on above: Result Comment: The ADA and AACC recommend providing the estimated average glucose result to permit better patient understanding of their HBA1c result. Performed By: #### Z FAST, CP #### [facility] [address] [place], [place] [phone] Crew Member: Leonides Brunner MD #### LIPR, GLYHGB #### [id number] [place], [place] [phone] Crew Member: Virgil Shelton MD HbA1c (Bld) [Mass fraction] 6.1 % High 4.0-6.0 [facility] Comment on above: Performed By: #### Makayla FAST, CP #### [facility] [address] [place], [place] [phone] Crew Member: Leonides Brunner MD #### LIPR, GLYHGB #### [address] [place], [place] [phone] Crew Member: Virgil Shelton MD Comp Metabolic Profon 2023 Albumin [Mass/Vol] 4.0 g/dL Normal 3.5-5.2 [facility] Comment on above: Performed By: #### Makayla FAST, CP #### [facility] [address] [place], [place] [phone] Crew Member: Leonides Brunner MD #### LIPBita, GLYHGB #### [address] [id number] Crew Member: Virgil Shelton MD Alkaline Phos 77 U/L Normal 35-104 [facility] Comment on above: Performed By: #### Makayla FAST, CP #### [facility] [address] [place], [place] [phone] Crew Member: Leonides Brunner MD #### LIPR, GLYHGB #### [address] [phone] Crew Member: Virgil Shelton MD ALT [Catalytic activity/Vol] 36 U/L High 5-33 [facility] Comment on above: Performed By: #### Makayla FAST, CP #### [facility] [address] [place], [place] [phone] Crew Member: Leonides Brunner MD #### LIPR, GLYHGB #### [id number] [place], [place] [phone] Crew Member: Virgil Shelton MD Anion gap [Moles/Vol] 15 mmol/L Normal 9-17 [facility] Comment on above: Performed By: #### Z FAST, CP #### [facility] [address] [place], [place] [phone] Crew Member: Leonides Brunner MD #### LIPR, GLYHGB #### [address] [phone] Crew Member: Virgil Shelton MD AST [Catalytic activity/Vol] 15 U/L Normal <32 [facility] Comment on above: Performed By: #### Makayla FAST, CP #### [facility] [address] [place], [place] [phone] Crew Member: Leonides Brunner MD #### LIPR, GLYHGB #### [address] [phone] Crew Member: Virgil Shelton MD Bilirubin [Mass/Vol] 0.2 mg/dL Low 0.3-1.2 [facility] Comment on above: Performed By: #### Makayla FAST, CP #### [facility] [address] [place], [place] [phone] Crew Member: Leonides Brunner MD #### LIPR, GLYHGB #### [address] [phone] Crew Member: Virgil Shelton MD BUN/CRE Ratio 24 High 9-20 [facility] Comment on above: Performed By: #### Z FAST, CP #### [facility] [address] [place], [place] [phone] Crew Member: Leonides Brunner MD #### LIPR, GLYHGB #### [facility] [address] [place] [address] Crew Member: Virgil Shelton MD Calcium [Mass/Vol] 8.9 mg/dL Normal 8.6-10.4 [facility] Comment on above: Performed By: #### Z FAST, CP #### [facility] [address] [place], [place] [phone] Crew Member: Leonides Brunner MD #### LIPR, GLYHGB #### [facility] [address] [place], [place] [phone] Crew Member: Virgil Shelton MD Chloride [Moles/Vol] 98 mmol/L Normal 98-107 [facility] Comment on above: Performed By: #### Makayla FAST, CP #### [facility] [address] [place], [place] [phone] Crew Member: Leonides Brunner MD #### LIPR, GLYHGB #### [facility] [address] [place], [place] [phone] Crew Member: Virgil Shelton MD CO2 [Moles/Vol] 21 mmol/L Normal 20-31 [facility] Comment on above: Performed By: #### Makayla FAST, CP #### [facility] [address] [place], [place] [phone] Crew Member: Leonides Brunner MD #### LIPR, GLYHGB #### [facility] [address] [place] [address] Crew Member: Virgil Shelton MD Creatinine [Mass/Vol] 0.5 mg/dL Normal 0.5-0.9 [facility] Comment on above: Performed By: #### Z FAST, CP #### [facility] [address] [place], [place] [phone] Crew Member: Leonides Brunner MD #### LIPR, GLYHGB #### [address] [address] [place], [place] [phone] Crew Member: Virgil Shelton MD GFR/1.73 sq M.predicted among non-blacks MDRD (S/P/Bld) [Vol rate/Area] mL/min/{1.73_m2} Normal >60 [facility] Comment on above: Result Comment: These results [...] affects renal tubular secretion. Performed By: #### Makayla FAST, CP #### [facility] [address] [place], [place] [phone] Crew Member: Leonides Brunner MD #### MARINA GLYHGB #### [facility] [employer] [address] [place] [address] [phone] Crew Member: Virgil Shelton MD Glucose [Mass/Vol] 133 mg/dL High 70-99 [facility] Comment on above: Performed By: #### Makayla FAST, CP #### [facility] [address] [place], [place] [phone] Crew Member: Leonides Brunner MD #### MARINA GLYHGB #### [address] [phone] Crew Member: Virgil Shelton MD Potassium [Moles/Vol] 3.7 mmol/L Normal 3.7-5.3 [facility] Comment on above: Performed By: #### Z FAST, CP #### [facility] [address] [place], [place] [phone] Crew Member: Leonides Brunner MD #### LIPR GLYHGB #### [address] [phone] Crew Member: Virgil Shelton MD Protein [Mass/Vol] 6.6 g/dL Normal 6.4-8.3 [facility] Comment on above: Performed By: #### Makayla FAST, CP #### [facility] [address] [place], [place] [phone] Crew Member: Leonides Brunner MD #### LIPBita, GLYHGB #### [facility] [employer] [facility] [place], [place] [phone] Crew Member: Virgil Shelton MD Sodium [Moles/Vol] 134 mmol/L Low 135-144 [facility] Comment on above: Performed By: #### Makayla FAST, CP #### [facility] [address] [place], [place] [phone] Crew Member: Leonides Brunner MD #### MARINA, GLYHGB #### [address] [place], [place] [phone] Crew Member: Virgil Shelton MD Urea nitrogen [Mass/Vol] 12 mg/dL Normal 6-20 [facility] Comment on above: Performed By: #### Makayla FAST, CP #### [facility] [address] [place], [place] [phone] Crew Member: Leonides Brunner MD #### MARINA, GLYHGB #### [facility] [employer] [facility] [place], [place] [phone] Crew Member: Virgil Shelton MD Lipid Profileon 09-07-2023 Cholesterol [Mass/Vol] 206 mg/dL High 0-199 [facility] Comment on above: Result Comment: Cholesterol Guidelines: <200 Desirable 200-240 Borderline >240 Undesirable Performed By: #### Makayla FAST, CP #### [facility] [address] [place], [place] [phone] Crew Member: Leonides Brunner MD #### LIPBita, GLYHGB #### [facility] [employer] [facility] [place] [address] Crew Member: Virgil Shelton MD Cholesterol in HDL [Mass/Vol] 60 mg/dL Normal >40 [facility] Comment on above: Result Comment: HDL Guidelines: <40 Undesirable 40-59 Borderline >59 Desirable Performed By: #### Z FAST, CP #### [facility] [address] [place] [address] Crew Member: Leonides Brunner MD #### LIPBita, GLYHGB #### [facility] [employer] [address] [place] [address] Crew Member: Virgil Shelton MD Cholesterol in LDL [Mass/Vol] 107 mg/dL High 0-100 [facility] Comment on above: Result Comment: LDL Guidelines: <100 Desirable 100-129 Near to/above Desirable 130-159 Borderline >159 Undesirable Direct (measured) LDL and calculated LDL are not interchangeable tests. Performed By: #### Makayla FAST, CP #### [facility] [address] [place], [place] [phone] Crew Member: Leonides Brunner MD #### LIPR, GLYHGB #### [facility] [employer] [address] [place] [address] Crew Member: Virgil Shelton MD Cholesterol in VLDL [Mass/Vol] 39 mg/dL Normal [facility] Comment on above: Performed By: #### Makayla FAST, CP #### [facility] [address] [place] [address] Crew Member: Leonides Brunner MD #### LIPR, GLYHGB #### [facility] [employer] [address] [place] [address] Crew Member: Virgil Shelton MD Cholesterol.total/Ch olesterol in HDL [Mass ratio] 3.0 {ratio} Normal [facility] Comment on above: Performed By: #### Makayla FAST, CP #### [facility] [address] [place] [address] Crew Member: Leonides Brunner MD #### LIPR, GLYHGB #### [facility] [address] [place] [address] Crew Member: Virgil Shelton MD Triglyceride [Mass/Vol] 194 mg/dL High <150 [facility] Comment on above: Result Comment: Triglyceride Guidelines: <150 Desirable 150-199 Borderline 200-499 High >499 Very high Based on AHA Guidelines for fasting triglyceride, May 2012. Performed By: #### Z FAST, CP #### [facility] [address] [place] [address] Crew Member: Leonides Brunner MD #### LIPR, GLYHGB #### [facility] [employer] [address] [place] [address] Crew Member: Virgil Shelton MD Patient fasting?on 4 Patient fasting? YES Normal [facility] Comment on above: Performed By: #### Makayla FAST, CP #### [facility] [address] [place] [address] Crew Member: Leonides Brunner MD #### LIPR, GLYHGB #### [facility] [employer] [address] [place] [address] Crew Member: Virgil Shelton MD Comprehensive Metabolic Pane [facility] 08-22-2022 Albumin [Mass/Vol] 3.9 g/dL 3.5 - 5.2 g/dL [facility] ALP (Bld) [Catalytic activity/Vol] 73 U/L 35 - 104 U/L [facility] ALT [Catalytic activity/Vol] 19 U/L 5 - 33 U/L [facility] Anion gap [Moles/Vol] 10 mmol/L 9 - 17 mmol/L [facility] AST [Catalytic activity/Vol] 12 U/L NINF - 32 U/L [facility] Bilirubin [Mass/Vol] 0.3 mg/dL 0.3 - 1 .2 mg/dL [facility] Calcium [Mass/Vol] 8.6 mg/dL 8.6 - 10. 4 mg/dL [facility] Chloride [Moles/Vol] 101 mmol/L 98 - 10 7 mmol/L [facility] CO2 [Moles/Vol] 23 mmol/L 20 - 31 mmol/L [facility] Creatinine [Mass/Vol] 0.63 mg/dL 0.50 - 0.90 mg/dL [facility] GFR/1.73 sq M.predicted MDRD (S/P/Bld) [Vol rate/Area] - PINF [facility] Comment on above: Effective May 21, [...] 141 mg/dL High 70 - 99 mg/dL [facility] Interpretation and review of laboratory results Abnormal [facility] Potassium [Moles/Vol] 4.2 mmol/L 3.7 - 5.3 mmol/L [facility] Protein [Mass/Vol] 6.6 g/dL 6.4 - 8.3 g/dL [facility] Sodium [Moles/Vol] 134 mmol/L Low 135 - 144 mmol/L [facility] Urea nitrogen (BldV) [Mass/Vol] 11 mg/dL 6 - 20 mg/dL [facility] Urea nitrogen/Creatinine (Bld) [Mass ratio] 17 9 - 20 [facility] HIV Screenon 08-22-2022 HIV Ag/Ab Non-Reactive NONREACTIVE [facility] Comment on above: No laboratory eviden ce of HIV infection. If acute HIV infection is suspected, consider testing for HIV-1 RNA. [facility] Hemoglobin A1Con 08-22-2022 Glucose [Mass/Vol] 140 mg/dL [facility] Comment on above: The ADA and AACC rec ommend providing the estimated average glucose result to permit better patient understanding of their HBA1c result. HbA1c (Bld) [Mass fraction] 6.5 % High 4.0 - 6.0 % [facility] Interpretation and review of laboratory results Abnormal [facility] Hepatitis C Antibodyon 08-22 Hepatitis C Ab Non-Reactive NONREACTIVE [facility] Comment on above: The hepatitis C procedure [...] recommended by ordering HCV RNA by PCR. [facility] Lipid Panelon 08-22-2022 Cholesterol [Mass/Vol] 209 mg/dL High NINF - 200 mg/dL [facility] Comment on above: Cholesterol Guidelines: <200 Desirable 200-240 Borderline >240 Undesirable Cholesterol in HDL [Mass/Vol] 49 mg/dL 40 - PINF mg/dL [facility] Comment on above: HDL Guidelines: <40 Undesirable 40-59 Borderline >59 Desirable Cholesterol in LDL [Mass/Vol] 105 mg/dL 0 - 130 mg/dL [facility] Comment on above: LDL Guidelines: <100 Desirable 100-129 Near to/above Desirable 130-159 Borderline >159 Undesirable Direct (measured) LDL and calculated LDL are not interchangeable tests. Cholesterol.total/Ch olesterol in HDL [Mass ratio] 4.3 {ratio} NINF - 5 [facility] Interpretation and review of laboratory results Abnormal [facility] Triglyceride [Mass/Vol] 275 mg/dL High NINF - 150 mg/dL [facility] Comment on above: Triglyceride Guidelines: <150 Desirable 150-199 Borderline 200-499 High >499 Very high Based on AHA Guidelines for fasting triglyceride, May 2012. [facility] Patient Fasting?on 3 Patient Fasting? YES [facility] APTTon 04-14-2022 aPTT Coag (Bld) [Time] 28.2 s [facility] Comment on above: IV Heparin Therapy Range: 62.0-94.0 CBC with Auto Differentialon 04-14-2022 Absolute Eos # 0.00 [facility] Absolute Lymph [facility] 0.80 Low [facility] Absolute [place] # 0.70 [facility] Basophils (Bld) [#/Vol] 0.00 10*3/uL [facility] Basophils/100 WBC (Bld) 0 % 0 - 2 % [facility] Differential Type YES [facility] Eosinophils/100 WBC (Bld) 0 % 0 - 5 % [facility] Hematocrit (Bld) [Volume fraction] 41.3 % 36 - 46 % [facility] Hemoglobin (Bld) [Mass/Vol] 14.1 g/dL 12 - 16 g/dL [facility] Interpretation and review of laboratory results Abnormal [facility] Lymphocytes/100 WBC (Bld) 7 % Low 15 - 40 % [facility] MCH (RBC) [Entitic mass] 28.4 pg 26 - 34 pg [facility] MCHC (RBC) [Mass/Vol] 34.1 g/dL 31 - 37 g/dL [facility] MCV (RBC) [Entitic vol] 83.5 fL 80 - 100 fL [facility] Monocytes/100 WBC (Bld) 6 % 4 - 8 % [facility] Platelet distribution width (Bld) [Ratio] 13.4 % 12.1 - 15.2 % [facility] Platelets (Bld) [#/Vol] 276 10*3/uL [facility] RBC (Bld) [#/Vol] 4.95 10*6/uL 4 - 5.2 m/uL [facility] Segmented neutrophils/100 WBC (Bld) 87 % High 47 - 75 % [facility] Segs Absolute 10.60 High [facility] WBC (Bld) [#/Vol] 12.1 10*3/uL High [facility] COVID-19, Rapidon 04-14-2022 Interpretation and review of laboratory results Abnormal [facility] SARS-CoV-2 (COVID-19) RNA PINEDA+probe Ql (Unsp spec) Detected Abnormal Not Detected [facility] Comment on above: Rapid NAAT: The [...] this assay. Fact sheet for Healthcare Providers: https://www.fda.gov/media/346253/download Fact sheet for Patients: https://www.fda.gov/media/391780/download Methodology: Isothermal Nucleic Acid Amplification Results reported to the appropriate Health Department Specimen Description .NASOPHARYNGEAL SWAB [facility] Comprehensive Metabolic Pane nadia 04-14-2022 Albumin [Mass/Vol] 4.2 g/dL 3.5 - 5.2 g/dL [facility] ALP (Bld) [Catalytic activity/Vol] 90 U/L 35 - 104 U/L [facility] ALT [Catalytic activity/Vol] 21 U/L 5 - 33 U/L [facility] Anion gap [Moles/Vol] 14 mmol/L 9 - 17 mmol/L [facility] AST [Catalytic activity/Vol] 14 U/L NINF - 32 U/L [facility] Bilirubin [Mass/Vol] 0.29 mg/dL Low 0.3 - 1 .2 mg/dL [facility] Calcium [Mass/Vol] 9.2 mg/dL 8.6 - 10. 4 mg/dL [facility] Chloride [Moles/Vol] 102 mmol/L 98 - 10 7 mmol/L [facility] CO2 [Moles/Vol] 21 mmol/L 20 - 31 mmol/L [facility] Creatinine [Mass/Vol] 0.77 mg/dL 0.5 - 0.9 mg/dL [facility] Free PSA/Total PSA [Mass fraction] 7.2 g/dL 6.4 - 8.3 g/dL [facility] GFR >60 60 - PI NF mL/min [facility] GFR Non- >60 60 - PINF mL/min [facility] GFR/1.73 sq M.predicted MDRD (S/P/Bld) [Vol rate/Area] [facility] Comment on above: Average GFR for 30-3 9 years old: 107 mL/min/1.73sq m Chronic Kidney Disease: <60 mL/min/1.73sq m Kidney failure: <15 mL/min/1.73sq m eGFR calculated using average adult body mass. Additional eGFR calculator available at: http://www.[employer]/teextee_crcl_2011.htm Glucose [Mass/Vol] 181 mg/dL High 70 - 99 mg/dL [facility] Interpretation and review of laboratory results Abnormal [facility] Potassium [Moles/Vol] 3.8 mmol/L 3.7 - 5.3 mmol/L [facility] Sodium [Moles/Vol] 137 mmol/L 135 - 144 mmol/L [facility] Urea nitrogen (BldV) [Mass/Vol] 9 mg/dL 6 - 20 mg/dL [facility] Urea nitrogen/Creatinine (Bld) [Mass ratio] 12 9 - 20 [facility] No Panel Informationon 04-14 [facility] Protime-INRon 04-14-2022 INR Coag (Bld) [Relative time] 1.0 {INR} [facility] Comment on above: Non-therapeutic Range: INR = 0.9-1.2 Therapeutic Range: Moderate Anticoagulant Intensity: INR = 2.0-3.0 High Anticoagulant Intensity: INR = 2.5-3.5 PT Coag (PPP) [Time] 13 s [facility] Troponinon 04-14-2022 Troponin, High Sensitivity ng/L 0 - 14 ng/L [facility] Comment on above: High Sensitivity Troponin values cannot be compared with other Troponin methodologies. Patients with high levels of Biotin oral intake (i.e >5mg/day) may have falsely decreased Troponin levels. Samples collected within 8 hours of biotin intake may require additional information for diagnosis. [employer] XR CHEST PORTABLEon 04-14-20 22 SARS-CoV-2 (COVID-19) Ab IA Ql EXAM: XR CHEST PORTABLE HISTORY: Reason for exam:->Covid 19 virus infection. COMPARISON: 02/08/2017 TECHNIQUE: A single AP portable view the chest was obtained at 2047 hours. FINDINGS: There continues to be a normal heart, mediastinal, hilar, and pulmonary appearance. There is no infiltrate or acute change. PN RIS CONSOLIDATED Negative AP portable chest. [email or web address] RIS CONSOLIDATED Mary Kay Macdonald DO - 04/14/2022 EXAM: XR CHEST PORTABLE HISTORY: Reason for exam:->Covid 19 virus infection. COMPARISON: 02/08/2017 TECHNIQUE: A single AP portable view the chest was obtained at 2047 hours. FINDINGS: There continues to be a normal heart, mediastinal, hilar, and pulmonary appearance. There is no infiltrate or acute change. IMPRESSION: Negative AP portable chest. [employer] Work Phone: Radiology Study observation (narrative) [employer] Work Phone: XR CHEST PORTABLEOrdered By: Mary Kay Macdonald on 04-14-2022 [employer] Work Phone: COVID-19, Rapidon 03-15-2022 SARS-CoV-2 (COVID-19) RNA PINEDA+probe Ql (Unsp spec) Not detected Not Detected [employer] Comment on above: Rapid NAAT: The specimen [...] management decisions. Fact sheet for Healthcare Providers: https://www.fda.gov/media/597663/download Fact sheet for Patients: https://www.fda.gov/media/874655/download Methodology: Isothermal Nucleic Acid Amplification Specimen Description .NASOPHARYNGEAL SWAB [facility] Comprehensive Metabolic Pane nadia 01-20-2022 Albumin [Mass/Vol] 4.3 g/dL 3.5 - 5.2 g/dL [facility] ALP (Bld) [Catalytic activity/Vol] 90 U/L 35 - 104 U/L [facility] ALT [Catalytic activity/Vol] 32 U/L 5 - 33 U/L [facility] Anion gap [Moles/Vol] 13 mmol/L 9 - 17 mmol/L [facility] AST [Catalytic activity/Vol] 20 U/L <32 [facility] Bilirubin [Mass/Vol] 0.31 mg/dL 0.30 - 1.20 mg/dL [facility] Calcium [Mass/Vol] 9.3 mg/dL 8.6 - 10. 4 mg/dL [facility] Chloride [Moles/Vol] 100 mmol/L 98 - 10 7 mmol/L [facility] CO2 [Moles/Vol] 22 mmol/L 20 - 31 mmol/L [facility] Creatinine [Mass/Vol] 0.69 mg/dL 0.50 - 0.90 mg/dL [facility] Free PSA/Total PSA [Mass fraction] 7.0 g/dL 6.4 - 8.3 g/dL [facility] GFR >60 >60 mL/min [facility] GFR Non- >60 >60 mL/min [facility] GFR/1.73 sq M.predicted MDRD (S/P/Bld) [Vol rate/Area] [facility] Comment on above: Average GFR for 30-3 9 years old: 107 mL/min/1.73sq m Chronic Kidney Disease: <60 mL/min/1.73sq m Kidney failure: <15 mL/min/1.73sq m eGFR calculated using average adult body mass. Additional eGFR calculator available at: http://www.[employer].com/multiple_crcl_2012.htm Glucose [Mass/Vol] 165 mg/dL High 70 - 99 mg/dL [facility] Interpretation and review of laboratory results Abnormal [facility] Potassium [Moles/Vol] 4.2 mmol/L 3.7 - 5.3 mmol/L [facility] Sodium [Moles/Vol] 135 mmol/L 135 - 144 mmol/L [facility] [employer] Urea nitrogen (BldV) [Mass/Vol] 14 mg/dL 6 - 20 mg/dL [facility] Urea nitrogen/Creatinine (Bld) [Mass ratio] 20 [facility] SolarATRI[facility] [employer] Lipid Panelon 01-20-2022 Cholesterol [Mass/Vol] 224 mg/dL High <200 [facility] Comment on above: Cholesterol Guidelines: <200 Desirable 200-240 Borderline >240 Undesirable Cholesterol in HDL [Mass/Vol] 51 mg/dL >40 [facility] Comment on above: HDL Guidelines: <40 Undesirable 40-59 Borderline >59 Desirable Cholesterol in LDL [Mass/Vol] 114 mg/dL 0 - 130 mg/dL [facility] Comment on above: LDL Guidelines: <100 Desirable 100-129 Near to/above Desirable 130-159 Borderline >159 Undesirable Direct (measured) LDL and calculated LDL are not interchangeable tests. Cholesterol.total/Ch olesterol in HDL [Mass ratio] 4.4 {ratio} <5 [facility] Interpretation and review of laboratory results Abnormal [facility] SolarCH[facility] Triglyceride [Mass/Vol] 294 mg/dL High <150 [facility] Comment on above: Triglyceride Guidelines: <150 Desirable 150-199 Borderline 200-499 High >499 Very high Based on AHA Guidelines for fasting triglyceride, May 2012. [employer] Microalbumin, Uron 2 Albumin/Creatinine DL <= 20 mg/L (24H U) [Mass ratio] <12 <21 mg/L [facility] Albumin/Creatinine DL <= 20 mg/L (U) [Ratio] Can not be calculated <25 mcg/mg creat [facility] Creatinine [Mass/Vol] 129.3 mg/dL 28.0 - 217.0 mg/dL [facility] Patient Fasting?on 2 Patient Fasting? YES [facility] CBC with Auto Differentialon 01-01-2022 Absolute Eos # 0.30 [facility] th Absolute Lymph # 3.20 [facility] Absolute [place] # 0.70 [facility] Basophils (Bld) [#/Vol] 0.00 10*3/uL [facility] Basophils/100 WBC (Bld) 0 % 0 - 2 % [facility] Differential Type YES [facility] Eosinophils/100 WBC (Bld) 3 % 0 - 5 % [facility] Hematocrit (Bld) [Volume fraction] 43.7 % 36 - 46 % [facility] Hemoglobin.gastroint estinal spec 1 Ql (Stl) 14.7 g/dL 12.0 - 16.0 g/dL [facility] Interpretation and review of laboratory results Abnormal [facility] Lymphocytes/100 WBC (Bld) 25 % 15 - 40 % [facility] MCH (RBC) [Entitic mass] 28.0 pg 26 - 34 pg [facility] MCHC (RBC) [Mass/Vol] 33.6 g/dL 31 - 37 g/dL [facility] MCV (RBC) [Entitic vol] 83.2 fL 80 - 100 fL [facility] Monocytes/100 WBC (Bld) 6 % 4 - 8 % [facility] Platelet distribution width (Bld) [Ratio] 13.8 % 12.1 - 15.2 % [facility] Platelets (Bld) [#/Vol] 316 10*3/uL [facility] RBC (Bld) [#/Vol] 5.25 10*6/uL High 4.0 - 5.2 m/uL [facility] Segmented neutrophils/100 WBC (Bld) 66 % 47 - 75 % [facility] Segs Absolute 8.30 [facility] WBC (Bld) [#/Vol] 12.6 10*3/uL High [facility] CT ABDOMEN PELVIS W IV CONTR AST Additional Contrast? Noneon 01-01-2022 Hysterectomy. Normal appendix. [facility] RIS CONSOLIDATED EXAMINATION: CT ABDOMEN PELVIS W [...] spleen, pancreas, gallbladder. Liver normal. No hernia. [facility] Osman Cobos Jr., MD - 01/01/2022 EXAMINATION: CT ABDOMEN [...] normal. No hernia. IMPRESSION: Hysterectomy. Normal appendix. [employer] Phone: Radiology Study observation (narrative) [employer] Phone: CT ABDOMEN PELVIS W IV CONTR AST Additional Contrast? NoneOrdered By: Osman Harrington on 01-01-2022 [facility] [employer] Work Phone: Comprehensive Metabolic Pane l w/ Reflex to MGon 01-01-2022 Albumin [Mass/Vol] 4.5 g/dL 3.5 - 5.2 g/dL [facility] ALP (Bld) [Catalytic activity/Vol] 93 U/L 35 - 104 U/L [facility] ALT [Catalytic activity/Vol] 25 U/L 5 - 33 U/L [facility] Anion gap [Moles/Vol] 15 mmol/L 9 - 17 mmol/L [facility] AST [Catalytic activity/Vol] 18 U/L <32 [facility] Bilirubin [Mass/Vol] 0.29 mg/dL Low 0.30 - 1.20 mg/dL [facility] Calcium [Mass/Vol] 9.6 mg/dL 8.6 - 10. 4 mg/dL [facility] Chloride [Moles/Vol] 98 mmol/L 98 - 10 7 mmol/L [facility] CO2 [Moles/Vol] 24 mmol/L 20 - 31 mmol/L [facility] Creatinine [Mass/Vol] 0.88 mg/dL 0.50 - 0.90 mg/dL [facility] Free PSA/Total PSA [Mass fraction] 7.6 g/dL 6.4 - 8.3 g/dL [facility] GFR >60 >60 mL/min [facility] GFR Non- >60 >60 mL/min [facility] GFR/1.73 sq M.predicted MDRD (S/P/Bld) [Vol rate/Area] [facility] Comment on above: Average GFR for 30-3 9 years old: 107 mL/min/1.73sq m Chronic Kidney Disease: <60 mL/min/1.73sq m Kidney failure: <15 mL/min/1.73sq m eGFR calculated using average adult body mass. Additional eGFR calculator available at: http://www.[employer]/multiple_crcl_2011.htm Glucose [Mass/Vol] 157 mg/dL High 70 - 99 mg/dL [facility] Interpretation and review of laboratory results Abnormal [facility] Potassium [Moles/Vol] 4.1 mmol/L 3.7 - 5.3 mmol/L [facility] Sodium [Moles/Vol] 137 mmol/L 135 - 144 mmol/L [facility] Urea nitrogen (BldV) [Mass/Vol] 11 mg/dL 6 - 20 mg/dL [facility] Urea nitrogen/Creatinine (Bld) [Mass ratio] 13 [facility] Urinalysison 01-01-2022 Bilirubin Urine Negative NEGATIVE [facility] Color, UA Yellow Yellow [facility] Glucose, Ur 1000 mg/dL Abnormal NEGATIVE [facility] Interpretation and review of laboratory results Abnormal [facility] Ketones Ql (U) Negative NEGATIVE [facility] Leukocyte esterase Test strip Ql (U) Negative NEGATIVE [facility] Nitrite, Urine Negative NEGATIVE [facility] pH, UA 6.0 [facility] Protein, UA Negative NEGATIVE [facility] Specific Fle[place], UA 1.020 [facility] Turbidity UA Clear Clear [facility] Urinalysis Comments [facility] Urine Hgb Negative NEGATIVE [facility] Urobilinogen, Urine Normal Normal [facility] Comprehensive Metabolic Pane nadia 07-24-2021 Albumin [Mass/Vol] 3.9 g/dL 3.5 - 5.2 g/dL [facility] Albumin/Globulin Ratio NOT REPORTED [facility] ALP (Bld) [Catalytic activity/Vol] 91 U/L 35 - 104 U/L [facility] ALT [Catalytic activity/Vol] 23 U/L 5 - 33 U/L [facility] Anion gap [Moles/Vol] 13 mmol/L 9 - 17 mmol/L [facility] AST [Catalytic activity/Vol] 16 U/L <32 [facility] Bilirubin [Mass/Vol] 0.23 mg/dL Low 0.30 - 1.20 mg/dL [facility] Calcium [Mass/Vol] 9.0 mg/dL 8.6 - 10. 4 mg/dL [facility] Chloride [Moles/Vol] 103 mmol/L 98 - 10 7 mmol/L [facility] CO2 [Moles/Vol] 22 mmol/L 20 - 31 mmol/L [facility] Creatinine [Mass/Vol] 0.65 mg/dL 0.50 - 0.90 mg/dL [facility] Free PSA/Total PSA [Mass fraction] 6.7 g/dL 6.4 - 8.3 g/dL [facility] GFR >60 >60 mL/min [facility] GFR Non- >60 >60 mL/min [facility] GFR/1.73 sq M.predicted MDRD (S/P/Bld) [Vol rate/Area] [facility] Comment on above: Average GFR for 30-3 9 years old: 107 mL/min/1.73sq m Chronic Kidney Disease: <60 mL/min/1.73sq m Kidney failure: <15 mL/min/1.73sq m eGFR calculated using average adult body mass. Additional eGFR calculator available at: http://www.[employer]/multiple_crcl_2012.htm GFR/1.73 sq M.predicted MDRD (S/P/Bld) [Vol rate/Area] NOT REPORTED [facility] Glucose [Mass/Vol] 147 mg/dL High 70 - 99 mg/dL [facility] Interpretation and review of laboratory results Abnormal [facility] Potassium [Moles/Vol] 3.9 mmol/L 3.7 - 5.3 mmol/L [facility] Sodium [Moles/Vol] 138 mmol/L 135 - 144 mmol/L [facility] Urea nitrogen (BldV) [Mass/Vol] 10 mg/dL 6 - 20 mg/dL [facility] Urea nitrogen/Creatinine (Bld) [Mass ratio] 15 [facility] Lipid Panelon 07-24-2021 Cholesterol [Mass/Vol] 189 mg/dL <200 [facility] Comment on above: Cholesterol Guidelines: <200 Desirable 200-240 Borderline >240 Undesirable Cholesterol in HDL [Mass/Vol] 54 mg/dL >40 [facility] Comment on above: HDL Guidelines: <40 Undesirable 40-59 Borderline >59 Desirable Cholesterol in LDL [Mass/Vol] 102 mg/dL 0 - 130 mg/dL [facility] Comment on above: LDL Guidelines: <100 Desirable 100-129 Near to/above Desirable 130-159 Borderline >159 Undesirable Direct (measured) LDL and calculated LDL are not interchangeable tests. Cholesterol in VLDL [Mass/Vol] NOT REPORTED High 1 - 30 mg/dL [facility] Cholesterol.total/Ch olesterol in HDL [Mass ratio] 3.5 {ratio} <5 [facility] Interpretation and review of laboratory results Abnormal [facility] Triglyceride [Mass/Vol] 164 mg/dL High <150 [facility] Comment on above: Triglyceride Guidelines: <150 Desirable 150-199 Borderline 200-499 High >499 Very high Based on AHA Guidelines for fasting triglyceride, May 2012. [facility] Patient Fasting?on Patient Fasting? yes [facility] [employer] [facility] TSH with Reflexon 07-24-2021 TSH Qn 3.66 m[IU]/L [facility] VL DUP LOWER EXTREMITY VENOU S LEFTOrdered By: Bob Amaya on 05-08-2021 Radiology exam is complete. No Radiologist dictation. Please follow up with ordering provider. [facility] [employer] Work Phone: [facility] [employer] Work Phone: Absolute lymphocyte counton 04-27-2021 Lymphocytes Auto (Unsp spec) [#/Vol] 1.24 10*3/uL 0.90-4.00 [facility] Work Phone: Basophil percentageon 2020 Basophils/100 WBC (Unsp spec) 0.0 % [facility] Work Phone: Blood hemoglobin measurement (mass/volume)on 04-27-2021 Hemoglobin (Bld) [Mass/Vol] 13.0 g/dL 12.0-16.0 [facility] Work Phone: Body fluid alanine aminotran sferase measurement (enzymatic activity/volume)on 04-27-2021 ALT (Body fld) [Catalytic activity/Vol] 46 U/L 14-65 [facility] Work Phone: CBC With Auto Diff.on 2020 Basophils (Bld) [#/Vol] 0.00 10*3/uL Normal 0.00-0.30 [facility] Comment on above: Order Comment: Criti elan Result called to and read back by MERON BEE RN of er on 04/23/2021 1:04 PM by Maru El. Performed By: #### I [id number] #### [facility] (DEFAULT) [address] [place] [address]80 Basophils/100 WBC (Bld) 0.0 % Normal [facility] Comment on above: Order Comment: Criti elan Result called to and read back by MERON BEE RN of er on 04/23/2021 1:04 PM by Maru El. Performed By: #### I [id number] #### [facility] (DEFAULT) [address] [place] [address] 89002 Eosinophils (Bld) [#/Vol] 0.00 10*3/uL Normal 0.00-0.50 [facility] Comment on above: Order Comment: Criti elan Result called to and read back by MERON BEE RN of er on 04/23/2021 1:04 PM by Maru El. Performed By: #### I [id number] #### [facility] (DEFAULT) [address] [place] [address] 05369 Eosinophils/100 WBC (Bld) 0.0 % Normal [facility] Comment on above: Order Comment: Criti elan Result called to and read back by MERON BEE RN of er on 04/23/2021 1:04 PM by Maru El. Performed By: #### I [id number] #### [facility] (DEFAULT) [address] [place] [address] 07030 Erythrocyte distribution width (RBC) [Ratio] 12.9 % Normal 11.6-14.8 [facility] Comment on above: Order Comment: Criti elan Result called to and read back by MERON BEE RN of er on 04/23/2021 1:04 PM by Maru El. Performed By: #### I [id number] #### [facility] (DEFAULT) [address] [place] [address]309 Hematocrit (Bld) [Volume fraction] 37.9 % Normal 36.0-46.0 [facility] Comment on above: Order Comment: Criti elan Result called to and read back by MERON BEE RN of er on 04/23/2021 1:04 PM by Maru El. Performed By: #### I [id number] #### [facility] (DEFAULT) [address] [place] [address] 96910 Hemoglobin (Bld) [Mass/Vol] 13.0 g/dL Normal 12.0-16.0 [facility] Comment on above: Order Comment: Criti elan Result called to and read back by MERON BEE RN of er on 04/23/2021 1:04 PM by Maru El. Performed By: #### I [id number] #### [facility] (DEFAULT) [address] [place] [address] 81784 Ig% 0.5 % Normal 0.0-4.0 [facility] Comment on above: Order Comment: Criti elan Result called to and read back by MERON BEE RN of er on 04/23/2021 1:04 PM by Maru El. Performed By: #### I [id number] #### [facility] (DEFAULT) [address], [place] [address] Lymphocytes (Bld) [#/Vol] 1.24 10*3/uL Normal 0.90-4.00 [facility] Comment on above: Order Comment: Criti elan Result called to and read back by MERON BEE RN of er on 04/23/2021 1:04 PM by Maru El. Performed By: #### I [id number] #### [facility] (DEFAULT) [address] [place] [address] 09553 Lymphocytes/100 WBC (Bld) 21.5 % Normal [facility] Comment on above: Order Comment: Criti elan Result called to and read back by MERON BEE RN of er on 04/23/2021 1:04 PM by Maru El. Performed By: #### I [id number] #### [facility] (DEFAULT) [address] [place] [address] 10234 MCH (RBC) [Entitic mass] 28.7 pg Normal 26.0-34.0 [facility] Comment on above: Order Comment: Criti elan Result called to and read back by MERON BEE RN of er on 04/23/2021 1:04 PM by Maru El. Performed By: #### I [id number] #### [facility] (DEFAULT) [address] [place] [address] 11359 MCHC (RBC) [Mass/Vol] 34.3 g/dL Normal 31.0-37.0 [facility] Comment on above: Order Comment: Criti elan Result called to and read back by MERON BEE RN of er on 04/23/2021 1:04 PM by Maru El. Performed By: #### I [id number] #### [facility] (DEFAULT) [address] [place] [address] 68162 MCV (RBC) [Entitic vol] 84 fL Normal 80-100 [facility] Comment on above: Order Comment: Criti elan Result called to and read back by MERON BEE RN of er on 04/23/2021 1:04 PM by Maru El. Performed By: #### I [id number] #### [facility] (DEFAULT) [address], [place] [address] Monocytes (Bld) [#/Vol] 0.70 10*3/uL Normal 0.30-0.90 [facility] Comment on above: Order Comment: Criti elan Result called to and read back by MERON BEE RN of er on 04/23/2021 1:04 PM by Maru El. Performed By: #### I [id number] #### [facility] (DEFAULT) [address] [place] [address] 64887 Monocytes/100 WBC (Bld) 12.2 % Normal [facility] Comment on above: Order Comment: Criti elan Result called to and read back by MERON BEE RN of er on 04/23/2021 1:04 PM by Maru El. Performed By: #### I [id number] #### [facility] (DEFAULT) [address] [place] [address] 03003 Neutrophils (Bld) [#/Vol] 3.79 10*3/uL Normal 1.70-7.00 [facility] Comment on above: Order Comment: Criti elan Result called to and read back by MERON BEE RN of er on 04/23/2021 1:04 PM by Maru El. Performed By: #### I [id number] #### [facility] (DEFAULT) [address] [place] [address] 96157 Neutrophils/100 WBC (Bld) 65.8 % Normal [facility] Comment on above: Order Comment: Criti elan Result called to and read back by MERON BEE RN of er on 04/23/2021 1:04 PM by Maru El. Performed By: #### I [id number] #### [facility] (DEFAULT) [address] [place] [address] 02251 Platelet mean volume (Bld) [Entitic vol] 9.1 fL Normal 9.0-15.5 [facility] Comment on above: Order Comment: Criti elan Result called to and read back by MERON BEE RN of er on 04/23/2021 1:04 PM by Maru El. Performed By: #### I [id number] #### [facility] (DEFAULT) [address] [place] [address] 98020 Platelets (Bld) [#/Vol] 337 10*3/uL Normal 150-400 [facility] Comment on above: Order Comment: Criti elan Result called to and read back by MERON BEE RN of er on 04/23/2021 1:04 PM by Maru El. Performed By: #### I [id number] #### [facility] (DEFAULT) [address] [place] [address] 64137 RBC (Bld) [#/Vol] 4.53 10*6/uL Normal 4.00-5.20 [facility] Comment on above: Order Comment: Criti elan Result called to and read back by MERON BEE RN of er on 04/23/2021 1:04 PM by Maru El. Performed By: #### I [id number] #### [facility] (DEFAULT) [address] [place] [address] 13209 WBC (Bld) [#/Vol] 5.76 10*3/uL Normal 4.50-11.00 [facility] Comment on above: Order Comment: Criti elan Result called to and read back by MERON BEE RN of er on 04/23/2021 1:04 PM by Maru El. Performed By: #### I [id number] #### [facility] (DEFAULT) [address] [place] [address] 29187 Calcium measurement (mass/vo lume)on 04-27-2021 Calcium (Unsp spec) [Mass/Vol] 8.4 mg/dL 8.0-10.2 [facility] Work Phone: Comprehensive Metabolic Pane nadia 04-27-2021 Albumin [Mass/Vol] 2.8 g/dL Low 3.2-4.5 [facility] Comment on above: Performed By: #### C OAGS #### [facility] (DEFAULT) [address] [place], [place] [address], [place] [address] ALP [Catalytic activity/Vol] 81 U/L Normal 40-140 [facility] Comment on above: Performed By: #### C OAGS #### [facility] (DEFAULT) [address] [place] [address] 47887 ALT [Catalytic activity/Vol] 46 U/L Normal 14-65 [facility] Comment on above: Performed By: #### C OAGS #### [facility] (DEFAULT) [address] [place] [address] 59834 Anion gap [Moles/Vol] 19 mmol/L Normal 10-20 [facility] Comment on above: Performed By: #### C OAGS #### [facility] (DEFAULT) [address] [place] [address] 81835 AST [Catalytic activity/Vol] 12 U/L Normal 0-45 [facility] Comment on above: Performed By: #### C OAGS #### [facility] (DEFAULT) [address] [place] [address] 68636 Bilirubin [Mass/Vol] 0.4 mg/dL Normal 0.0-1.3 [facility] Comment on above: Performed By: #### C OAGS #### [facility] (DEFAULT) [address] [place] [address] 72356 Calcium [Mass/Vol] 8.4 mg/dL Normal 8.0-10.2 [facility] Comment on above: Performed By: #### C OAGS #### [facility] (DEFAULT) [address] [place] [address] 24792 Chloride [Moles/Vol] 104 mmol/L Normal 98-108 [facility] Comment on above: Performed By: #### C OAGS #### [facility] (DEFAULT) [address] [place] [address]25 CO2 [Moles/Vol] 18.0 mmol/L Low 21.0-32.0 [facility] Comment on above: Performed By: #### C OAGS #### [facility] (DEFAULT) [address], [place] [address] Creatinine [Mass/Vol] 0.6 mg/dL Normal 0.4-1.1 [facility] Comment on above: Performed By: #### C OAGS #### [facility] (DEFAULT) [address] [place] [address] 81773 GFR/1.73 sq M.predicted MDRD (S/P/Bld) [Vol rate/Area] 109 mL/min/{1.73_m2} Normal 60-1000 [facility] Comment on above: Result Comment: The eGFR should be used for monitoring renal function only and not for medication dosing. Performed By: #### C OAGS #### [facility] (DEFAULT) [address] [place] [address] 22944 Glucose [Mass/Vol] 164 mg/dL High 65-99 [facility] Comment on above: Performed By: #### C OAGS #### [facility] (DEFAULT) [address] [place] [address] 76433 Potassium [Moles/Vol] 3.8 mmol/L Normal 3.5-5.1 [facility] Comment on above: Performed By: #### C OAGS #### [facility] (DEFAULT) [address] [place] [address] 48109 Protein [Mass/Vol] 6.9 g/dL Normal 6.0-8.0 [facility] Comment on above: Performed By: #### C OAGS #### [facility] (DEFAULT) [address] [place] [address] 42644 Sodium [Moles/Vol] 137 mmol/L Normal 135-145 [facility] Comment on above: Performed By: #### C OAGS #### [facility] (DEFAULT) [address] [place] [address] 20757 Urea nitrogen [Mass/Vol] 19 mg/dL Normal 8-25 [facility] Comment on above: Performed By: #### C OAGS #### [facility] (DEFAULT) [address] [place] [address] 01071 Erythrocyte distribution wid th ratioon 04-27-2021 Erythrocyte distribution width (RBC) [Ratio] 12.9 % 11.6-14.8 [facility] Work Phone: Erythrocyte mean corpuscular hemoglobin concentration measurement (mass/volume)on 04-27-2021 MCHC (RBC) [Mass/Vol] 34.3 g/dL 31.0-37.0 [facility] Work Phone: HBV + HCV screenon MCH (RBC) [Entitic mass] 28.7 pg 26.0-34.0 [facility] Work Phone: MCV (RBC) [Entitic vol] 84 fL 80-100 [facility] Work Phone: Laboratory - Chemistry and C hemistry - challengeon 04-27-2021 ALP [Catalytic activity/Vol] 81 U/L 40-140 [facility] Work Phone: Anion gap [Moles/Vol] 19 mmol/L 10-20 [facility] Work Phone: CO2 [Moles/Vol] 18.0 mmol/L 21.0-32.0 [facility] Work Phone: GFR/1.73 sq M.predicted among non-blacks MDRD (S/P/Bld) [Vol rate/Area] 109 mL/min/{1.73_m2} 60-1000 [facility] Work Phone: Comment on above: Result Units: mL/min /1.80h1Mih eGFR should be used for monitoring renal function only and not for medication dosing. Laboratory - Hematology and Cell countson 04-27-2021 Basophils (Bld) [#/Vol] 0.00 10*3/uL 0.00-0.30 [facility] Work Phone: Hematocrit (Bld) [Volume fraction] 37.9 % 36.0-46.0 [facility] Work Phone: Immature granulocytes/100 WBC (Bld) 0.5 % 0.0-4.0 [facility] Work Phone: Neutrophils/100 WBC (Bld) 65.8 % [facility] Work Phone: RBC (Bld) [#/Vol] 4.53 10*6/uL 4.00-5.20 [facility] Work Phone: Neutrophils Auto (Bld) [#/Vo l]on 04-27-2021 Neutrophils (Bld) [#/Vol] 3.79 10*3/uL 1.70-7.00 [facility] Work Phone: PCM.DCPLANon 04-27-2021 [facility] Patient: DELILAH MANCUSO DISCHARGE PLAN/ORDERS Admit Date: 04/23/21 /Age: 09 1980 Attending Physician: Júnior Valadez MD Med Rec #: [id number] - Problem Patient Problems: Current Active Problems [...] notify your physician Authenticated on: 04/27/21 1203 -[id number] CC: Normal [facility] Platelet mean volume Auto (B ld) [Entitic vol]on 04-27-2021 Platelet mean volume (Bld) [Entitic vol] 9.1 fL 9.0-15.5 [facility] Work Phone: Platelets Auto (Bld) [#/Vol] on 04-27-2021 Platelets (Bld) [#/Vol] 337 10*3/uL 150-400 [facility] Work Phone: Serum or plasma albumin marce urement (mass/volume)on 04-27-2021 Albumin [Mass/Vol] 2.8 g/dL 3.2-4.5 [facility] Work Phone: Serum or plasma urea nitroge n measurement (mass/volume)on 04-27-2021 Urea nitrogen [Mass/Vol] 19 mg/dL 8-25 [facility] Work Phone: Trichomonas screenon 021 AST [Catalytic activity/Vol] 12 U/L 0-45 [facility] Work Phone: Bilirubin [Mass/Vol] 0.4 mg/dL 0.0-1.3 [facility] Work Phone: Chloride [Moles/Vol] 104 mmol/L 98-108 [facility] Work Phone: Creatinine [Mass/Vol] 0.6 mg/dL 0.4-1.1 [facility] Work Phone: Eosinophils (Bld) [#/Vol] 0.00 10*3/uL 0.00-0.50 [facility] Work Phone: Eosinophils/100 WBC (Bld) 0.0 % [facility] Work Phone: Glucose [Mass/Vol] 164 mg/dL 65-99 [facility] Work Phone: Lymphocytes/100 WBC (Bld) 21.5 % [facility] Work Phone: Monocytes (Bld) [#/Vol] 0.70 10*3/uL 0.30-0.90 [facility] Work Phone: Monocytes/100 WBC (Bld) 12.2 % [facility] Work Phone: Potassium [Moles/Vol] 3.8 mmol/L 3.5-5.1 [facility] Work Phone: Protein [Mass/Vol] 6.9 g/dL 6.0-8.0 [facility] Work Phone: Sodium [Moles/Vol] 137 mmol/L 135-145 [facility] Work Phone: WBC (Bld) [#/Vol] 5.76 10*3/uL 4.50-11.00 [facility] Work Phone: Basophils Manual cnt (Bld) [ #/Vol]on 04-26-2021 Basophils/100 WBC (Bld) 0 % [facility] Work Phone: CBC With Auto Diff.on 2020 Erythrocyte distribution width (RBC) [Ratio] 13.1 % Normal 11.6-14.8 [facility] Comment on above: Order Comment: Regul atory Requirements State: Only Absolute Cell Counts are reported with their reference ranges. Performed By: #### C OAGS #### [facility] (DEFAULT) [address], [place] [address] Hematocrit (Bld) [Volume fraction] 36.9 % Normal 36.0-46.0 [facility] Comment on above: Order Comment: Regul atory Requirements State: Only Absolute Cell Counts are reported with their reference ranges. Performed By: #### C OAGS #### [facility] (DEFAULT) [address] [place] [address] 75693 Hemoglobin (Bld) [Mass/Vol] 12.7 g/dL Normal 12.0-16.0 [facility] Comment on above: Order Comment: Regul atory Requirements State: Only Absolute Cell Counts are reported with their reference ranges. Performed By: #### C OAGS #### [facility] (DEFAULT) [address] [place] [address] 69844 Ig% 0.4 % Normal 0.0-4.0 [facility] Comment on above: Order Comment: Regul atory Requirements State: Only Absolute Cell Counts are reported with their reference ranges. Performed By: #### C OAGS #### [facility] (DEFAULT) [address] [place] [address]341 MCH (RBC) [Entitic mass] 29.1 pg Normal 26.0-34.0 [facility] Comment on above: Order Comment: Regul atory Requirements State: Only Absolute Cell Counts are reported with their reference ranges. Performed By: #### C OAGS #### [facility] (DEFAULT) [address] [place] [address] 66566 MCHC (RBC) [Mass/Vol] 34.4 g/dL Normal 31.0-37.0 [facility] Comment on above: Order Comment: Regul atory Requirements State: Only Absolute Cell Counts are reported with their reference ranges. Performed By: #### C OAGS #### [facility] (DEFAULT) [address] [place] [address] 09489 MCV (RBC) [Entitic vol] 85 fL Normal 80-100 [facility] Comment on above: Order Comment: Regul atory Requirements State: Only Absolute Cell Counts are reported with their reference ranges. Performed By: #### C OAGS #### [facility] (DEFAULT) [address] [place] [address] 29323 Platelet mean volume (Bld) [Entitic vol] 9.4 fL Normal 9.0-15.5 [facility] Comment on above: Order Comment: Regul atory Requirements State: Only Absolute Cell Counts are reported with their reference ranges. Performed By: #### C OAGS #### [facility] (DEFAULT) [address] [place] [address] 39919 Platelets (Bld) [#/Vol] 313 10*3/uL Normal 150-400 [facility] Comment on above: Order Comment: Regul atory Requirements State: Only Absolute Cell Counts are reported with their reference ranges. Performed By: #### C OAGS #### [facility] (DEFAULT) [address] [place] [address] 83506 RBC (Bld) [#/Vol] 4.36 10*6/uL Normal 4.00-5.20 [facility] Comment on above: Order Comment: Regul atory Requirements State: Only Absolute Cell Counts are reported with their reference ranges. Performed By: #### C OAGS #### [facility] (DEFAULT) [address] [place] [address] 91865 WBC (Bld) [#/Vol] 5.29 10*3/uL Normal 4.50-11.00 [facility] Comment on above: Order Comment: Regul atory Requirements State: Only Absolute Cell Counts are reported with their reference ranges. Performed By: #### C OAGS #### [facility] (DEFAULT) [address] [place] [address] [place], [place] [address] Comprehensive Metabolic Pane nadia 04-26-2021 Albumin [Mass/Vol] 2.8 g/dL Low 3.2-4.5 [facility] Comment on above: Performed By: #### C MP #### [facility] (DEFAULT) [address] [place], [place] [address] ALP [Catalytic activity/Vol] 88 U/L Normal 40-140 [facility] Comment on above: Performed By: #### C MP #### [facility] (DEFAULT) [address] [place], [place] [address] ALT [Catalytic activity/Vol] 49 U/L Normal 14-65 [facility] Comment on above: Performed By: #### C MP #### [facility] (DEFAULT) [address] [place], [place] [address] Anion gap [Moles/Vol] 19 mmol/L Normal 10-20 [facility] Comment on above: Performed By: #### C MP #### [facility] (DEFAULT) [address] [place], [place] [address] AST [Catalytic activity/Vol] 14 U/L Normal 0-45 [facility] Comment on above: Performed By: #### C MP #### [facility] (DEFAULT) [address] [place], [place] [address] [place], [place] [address] Bilirubin [Mass/Vol] 0.4 mg/dL Normal 0.0-1.3 [facility] Comment on above: Performed By: #### C MP #### [facility] (DEFAULT) [address] [place], [place] [address] Calcium [Mass/Vol] 8.6 mg/dL Normal 8.0-10.2 [facility] Comment on above: Performed By: #### C MP #### [facility] (DEFAULT) [address] [place], [place] [address]graciela Marcano [place], [place] [address] Chloride [Moles/Vol] 105 mmol/L Normal 98-108 [facility] Comment on above: Performed By: #### C MP #### [facility] (DEFAULT) [address] [place], [place] [address], [place] [address] CO2 [Moles/Vol] 16.0 mmol/L Low 21.0-32.0 [facility] Comment on above: Performed By: #### C MP #### [facility] (DEFAULT) [address] [place] [address] Creatinine [Mass/Vol] 0.6 mg/dL Normal 0.4-1.1 [facility] Comment on above: Performed By: #### C MP #### [facility] (DEFAULT) [address] [place] [address] GFR/1.73 sq M.predicted MDRD (S/P/Bld) [Vol rate/Area] 118 mL/min/{1.73_m2} Normal 60-1000 [facility] Comment on above: Result Comment: The eGFR should be used for monitoring renal function only and not for medication dosing. Performed By: #### C MP #### [facility] (DEFAULT) [address] [place] [address] Glucose [Mass/Vol] 168 mg/dL High 65-99 [facility] Comment on above: Performed By: #### C MP #### [facility] (DEFAULT) [address] [place] [address] Potassium [Moles/Vol] 3.9 mmol/L Normal 3.5-5.1 [facility] Comment on above: Performed By: #### C MP #### [facility] (DEFAULT) [address] [place] [address] Protein [Mass/Vol] 6.8 g/dL Normal 6.0-8.0 [facility] Comment on above: Performed By: #### C MP #### [facility] (DEFAULT) [address] [place] [address] Sodium [Moles/Vol] 136 mmol/L Normal 135-145 [facility] Comment on above: Performed By: #### C MP #### [facility] (DEFAULT) [address] [place] [address] Urea nitrogen [Mass/Vol] 19 mg/dL Normal 8-25 [facility] Comment on above: Performed By: #### C MP #### [facility] (DEFAULT) [address] [address] Eosinophils Manual cnt (Bld) [#/Vol]on 04-26-2021 Eosinophils/100 WBC (Bld) 0 % [facility] Work Phone: HBV + HCV screenon 1 Monocytes/100 WBC (Bld) 7 % [facility] Work Phone: Lymphocytes Manual cnt (Bld) [#/Vol]on 04-26-2021 Lymphocytes/100 WBC (Bld) 27 % [facility] Work Phone: Manual Differential.on 04-26 Baso 0 % Normal [facility] Comment on above: Order Comment: Two a typical lymphocytes seen in slide. Performed By: #### M DIFF1 #### [facility] (DEFAULT) [address] [place] [address] BASO# 0.00 X10E3/UL Normal 0.00-0.15 [facility] Comment on above: Order Comment: Two a typical lymphocytes seen in slide. Performed By: #### M DIFF1 #### [facility] (DEFAULT) [address] [place] [address] Blasts 0 % Normal 0-0 [facility] Comment on above: Order Comment: Two a typical lymphocytes seen in slide. Performed By: #### M DIFF1 #### [facility] (DEFAULT) [address] [place] [address] Blasts# 0.00 Normal 0.00-0.00 [facility] Comment on above: Order Comment: Two a typical lymphocytes seen in slide. Performed By: #### M DIFF1 #### [facility] (DEFAULT) [address] [place] [address] EOS 0 % Normal [facility] Comment on above: Order Comment: Two a typical lymphocytes seen in slide. Performed By: #### M DIFF1 #### [facility] (DEFAULT) [address], [place] [address] EOS# 0.00 X10E3/UL Normal 0.00-0.70 [facility] Comment on above: Order Comment: Two a typical lymphocytes seen in slide. Performed By: #### M DIFF1 #### [facility] (DEFAULT) [address], [place] [address] LYM# 1.43 X10E3/UL Normal 1.10-4.40 [facility] Comment on above: Order Comment: Two a typical lymphocytes seen in slide. Performed By: #### M DIFF1 #### [facility] (DEFAULT) [address] [place] [address] Lymphocytes 27 % Normal [facility] Comment on above: Order Comment: Two a typical lymphocytes seen in slide. Performed By: #### M DIFF1 #### [facility] (DEFAULT) [address] [place] [address] [place]# 0.00 X10E3/UL Low 1.50-7.50 [facility] Comment on above: Order Comment: Two a typical lymphocytes seen in slide. Performed By: #### M DIFF1 #### [facility] (DEFAULT) [address] [place] [address] Metamyelocytes 0 % Normal 0-0 [facility] Comment on above: Order Comment: Two a typical lymphocytes seen in slide. Performed By: #### M DIFF1 #### [facility] (DEFAULT) [address] [place] [address] MONO# 0.37 X10E3/UL Normal 0.20-0.95 [facility] Comment on above: Order Comment: Two a typical lymphocytes seen in slide. Performed By: #### M DIFF1 #### [facility] (DEFAULT) [address] [place] [address] Monocytes 7 % Normal [facility] Comment on above: Order Comment: Two a typical lymphocytes seen in slide. Performed By: #### M DIFF1 #### [facility] (DEFAULT) [address] [place] [address] [place] [address] MYELO 0.00 % Normal 0.00-0.00 [facility] Comment on above: Order Comment: Two a typical lymphocytes seen in slide. Performed By: #### M DIFF1 #### [facility] (DEFAULT) [address], [place] [address] NEUT# 3.49 X10E3/UL Normal 1.50-7.50 [facility] Comment on above: Order Comment: Two a typical lymphocytes seen in slide. Performed By: #### M DIFF1 #### [facility] (DEFAULT) [address], [place] [address] Neutrophils 66 % Normal [facility] Comment on above: Order Comment: Two a typical lymphocytes seen in slide. Performed By: #### M DIFF1 #### [facility] (DEFAULT) [address], [place] [address] NRBC 0 /100wbc Normal [facility] Comment on above: Order Comment: Two a typical lymphocytes seen in slide. Performed By: #### M DIFF1 #### [facility] (DEFAULT) [address], [place] [address] Manual body fluid myelocytes count (number/volume)on 04-26-2021 Myelocytes Manual cnt (Body fld) [#/Vol] 0.00 % 0.00-0.00 [facility] Work Phone: Metamyelocytes/100 WBC Manua l cnt (Bld)on 04-26-2021 Metamyelocytes/100 WBC (Bld) 0 % 0-0 [facility] Work Phone: Neutrophils Auto (Bld) [#/Vo l]on 04-26-2021 Neutrophils/100 WBC (Bld) 66 % [facility] Work Phone: No Panel Informationon 04-26 Nucleated Red Blood Cells 0 /100wbc [facility] Work Phone: Basic Metabolic panelon Anion gap [Moles/Vol] 19 mmol/L Normal 10-20 [facility] Comment on above: Performed By: #### B MP #### [facility] (DEFAULT) [address] [place], [place] [address] Calcium [Mass/Vol] 8.4 mg/dL Normal 8.0-10.2 [facility] Comment on above: Performed By: #### B MP #### [facility] (DEFAULT) [address] [facility] [place], [place] [address] Chloride [Moles/Vol] 107 mmol/L Normal 98-108 [facility] Comment on above: Performed By: #### B MP #### [facility] (DEFAULT) [address] [facility] [place], [place] [address] CO2 [Moles/Vol] 14.0 mmol/L Low 21.0-32.0 [facility] Comment on above: Performed By: #### B MP #### [facility] (DEFAULT) [address] [place] [address] Creatinine [Mass/Vol] 0.7 mg/dL Normal 0.4-1.1 [facility] Comment on above: Performed By: #### B MP #### [facility] (DEFAULT) [address] [place] [address] GFR/1.73 sq M.predicted MDRD (S/P/Bld) [Vol rate/Area] 92 mL/min/{1.73_m2} Normal 60-1000 [facility] Comment on above: Result Comment: The eGFR should be used for monitoring renal function only and not for medication dosing. Performed By: #### B MP #### [facility] (DEFAULT) [address], [place] [address] Glucose [Mass/Vol] 158 mg/dL High 65-99 [facility] Comment on above: Performed By: #### B MP #### [facility] (DEFAULT) [address] [place] [address] Potassium [Moles/Vol] 4.1 mmol/L Normal 3.5-5.1 [facility] Comment on above: Performed By: #### B MP #### [facility] (DEFAULT) [address], [place] [address] Sodium [Moles/Vol] 136 mmol/L Normal 135-145 [facility] Comment on above: Performed By: #### B MP #### [facility] (DEFAULT) [address], [place] [address] Urea nitrogen [Mass/Vol] 20 mg/dL Normal 8-25 [facility] Comment on above: Performed By: #### B MP #### [facility] (DEFAULT) [address] [place] [address] CBC With Auto Diff.on 2020 Erythrocyte distribution width (RBC) [Ratio] 13.8 % Normal 11.6-14.8 [facility] Comment on above: Order Comment: Criti elan Result called to and read back by MERON BEE RN of er on 04/23/2021 1:04 PM by Maru El. Performed By: #### I [id number] #### [facility] (DEFAULT) [address] [place] [address] Hematocrit (Bld) [Volume fraction] 41.0 % Normal 36.0-46.0 [facility] Comment on above: Order Comment: Criti elan Result called to and read back by MERON BEE RN of er on 04/23/2021 1:04 PM by Maru El. Performed By: #### I [id number] #### [facility] (DEFAULT) [address] [place] [address] Hemoglobin (Bld) [Mass/Vol] 13.6 g/dL Normal 12.0-16.0 [facility] Comment on above: Order Comment: Criti elan Result called to and read back by MERON BEE RN of er on 04/23/2021 1:04 PM by Maru El. Performed By: #### I [id number] #### [facility] (DEFAULT) [address] [place] [address] Ig% 0.2 % Normal 0.0-4.0 [facility] Comment on above: Order Comment: Criti elan Result called to and read back by MERON BEE RN of er on 04/23/2021 1:04 PM by Maru El. Performed By: #### I [id number] #### [facility] (DEFAULT) [address] [place] [address] MCH (RBC) [Entitic mass] 28.7 pg Normal 26.0-34.0 [facility] Comment on above: Order Comment: Criti elan Result called to and read back by MERON BEE RN of er on 04/23/2021 1:04 PM by Maru El. Performed By: #### I [id number] #### [facility] (DEFAULT) [address] [place] [address] MCHC (RBC) [Mass/Vol] 33.2 g/dL Normal 31.0-37.0 [facility] Comment on above: Order Comment: Criti elan Result called to and read back by MERON BEE RN of er on 04/23/2021 1:04 PM by Maru El. Performed By: #### I [id number] #### [facility] (DEFAULT) [address] [place] [address] MCV (RBC) [Entitic vol] 87 fL Normal 80-100 [facility] Comment on above: Order Comment: Criti elan Result called to and read back by MERON BEE RN of er on 04/23/2021 1:04 PM by Maru El. Performed By: #### I [id number] #### [facility] (DEFAULT) [address] [place] [address] Platelet mean volume (Bld) [Entitic vol] 9.9 fL Normal 9.0-15.5 [facility] Comment on above: Order Comment: Criti elan Result called to and read back by MERON BEE RN of er on 04/23/2021 1:04 PM by Maru El. Performed By: #### I [id number] #### [facility] (DEFAULT) [address] [place] [address] Platelets (Bld) [#/Vol] 255 10*3/uL Normal 150-400 [facility] Comment on above: Order Comment: Criti elan Result called to and read back by MERON BEE RN of er on 04/23/2021 1:04 PM by Maru El. Performed By: #### I [id number] #### [facility] (DEFAULT) [address] [place] [address] RBC (Bld) [#/Vol] 4.74 10*6/uL Normal 4.00-5.20 [facility] Comment on above: Order Comment: Criti elan Result called to and read back by MERON BEE RN of er on 04/23/2021 1:04 PM by Maru El. Performed By: #### I [id number] #### [facility] (DEFAULT) [address] [place] [address] WBC (Bld) [#/Vol] 4.80 10*3/uL Normal 4.50-11.00 [facility] Comment on above: Order Comment: Criti elan Result called to and read back by MERON BEE RN of er on 04/23/2021 1:04 PM by Maru El. Performed By: #### I [id number] #### [facility] (DEFAULT) [address] [place] [address] Manual Differential.on 04-25 Baso 0 % Normal [facility] Comment on above: Order Comment: Three atypical lymphocytes seen in smear. Performed By: #### M DIFF1 #### [facility] (DEFAULT) [address] [place] [address] BASO# 0.00 X10E3/UL Normal 0.00-0.15 [facility] Comment on above: Order Comment: Three atypical lymphocytes seen in smear. Performed By: #### M DIFF1 #### [facility] (DEFAULT) [address] [place] [address] Blasts 0 % Normal 0-0 [facility] Comment on above: Order Comment: Three atypical lymphocytes seen in smear. Performed By: #### M DIFF1 #### [facility] (DEFAULT) [address], [place] [address] Blasts# 0.00 Normal 0.00-0.00 [facility] Comment on above: Order Comment: Three atypical lymphocytes seen in smear. Performed By: #### M DIFF1 #### [facility] (DEFAULT) [address], [place] [address] EOS 0 % Normal [facility] Comment on above: Order Comment: Three atypical lymphocytes seen in smear. Performed By: #### M DIFF1 #### [facility] (DEFAULT) [address] [place] [address] EOS# 0.00 X10E3/UL Normal 0.00-0.70 [facility] Comment on above: Order Comment: Three atypical lymphocytes seen in smear. Performed By: #### M DIFF1 #### [facility] (DEFAULT) [address] [place] [address] LYM# 1.01 X10E3/UL Low 1.10-4.40 [facility] Comment on above: Order Comment: Three atypical lymphocytes seen in smear. Performed By: #### M DIFF1 #### [facility] (DEFAULT) [address] [place] [address] Lymphocytes 21 % Normal [facility] Comment on above: Order Comment: Three atypical lymphocytes seen in smear. Performed By: #### M DIFF1 #### [facility] (DEFAULT) [address] [place] [address] [place]# 0.00 X10E3/UL Low 1.50-7.50 [facility] Comment on above: Order Comment: Three atypical lymphocytes seen in smear. Performed By: #### M DIFF1 #### [facility] (DEFAULT) [address] [place] [address] Metamyelocytes 0 % Normal 0-0 [facility] Comment on above: Order Comment: Three atypical lymphocytes seen in smear. Performed By: #### M DIFF1 #### [facility] (DEFAULT) [address] [place] [address] MONO# 0.38 X10E3/UL Normal 0.20-0.95 [facility] Comment on above: Order Comment: Three atypical lymphocytes seen in smear. Performed By: #### M DIFF1 #### [facility] (DEFAULT) [address] [place] [address] Monocytes 8 % Normal [facility] Comment on above: Order Comment: Three atypical lymphocytes seen in smear. Performed By: #### M DIFF1 #### [facility] (DEFAULT) [address] [place] [address] MYELO 0.00 % Normal 0.00-0.00 [facility] Comment on above: Order Comment: Three atypical lymphocytes seen in smear. Performed By: #### M DIFF1 #### [facility] (DEFAULT) [address] [place] [address] NEUT# 3.41 X10E3/UL Normal 1.50-7.50 [facility] Comment on above: Order Comment: Three atypical lymphocytes seen in smear. Performed By: #### M DIFF1 #### [facility] (DEFAULT) [address] [place] [address] Neutrophils 71 % Normal [facility] Comment on above: Order Comment: Three atypical lymphocytes seen in smear. Performed By: #### M DIFF1 #### [facility] (DEFAULT) [address] [place] [address] NRBC 0 /100wbc Normal [facility] Comment on above: Order Comment: Three atypical lymphocytes seen in smear. Performed By: #### M DIFF1 #### [facility] (DEFAULT) [address] [place] [address] Basic Metabolic panelon 09-0 6-2020 Anion gap [Moles/Vol] 20 mmol/L Normal 10-20 [facility] Comment on above: Performed By: #### B MP #### [facility] (DEFAULT) [address] [place] [address] Calcium [Mass/Vol] 8.4 mg/dL Normal 8.0-10.2 [facility] Comment on above: Performed By: #### B MP #### [facility] (DEFAULT) [address], [place] [address] Chloride [Moles/Vol] 107 mmol/L Normal 98-108 [facility] Comment on above: Performed By: #### B MP #### [facility] (DEFAULT) [address] [place] [address] CO2 [Moles/Vol] 15.0 mmol/L Low 21.0-32.0 [facility] Comment on above: Performed By: #### B MP #### [facility] (DEFAULT) [address] [place] [address] Creatinine [Mass/Vol] 0.6 mg/dL Normal 0.4-1.1 [facility] Comment on above: Performed By: #### B MP #### [facility] (DEFAULT) [address] [place] [address] GFR/1.73 sq M.predicted MDRD (S/P/Bld) [Vol rate/Area] 113 mL/min/{1.73_m2} Normal 60-1000 [facility] Comment on above: Result Comment: The eGFR should be used for monitoring renal function only and not for medication dosing. Performed By: #### B MP #### [facility] (DEFAULT) [address] [place] [address] Glucose [Mass/Vol] 122 mg/dL High 65-99 [facility] Comment on above: Performed By: #### B MP #### [facility] (DEFAULT) [address] [place] [address] Potassium [Moles/Vol] 4.3 mmol/L Normal 3.5-5.1 [facility] Comment on above: Performed By: #### B MP #### [facility] (DEFAULT) [address] [place] [address] Sodium [Moles/Vol] 138 mmol/L Normal 135-145 [facility] Comment on above: Performed By: #### B MP #### [facility] (DEFAULT) [address] [place] [address] Urea nitrogen [Mass/Vol] 17 mg/dL Normal 8-25 [facility] Comment on above: Performed By: #### B MP #### [facility] (DEFAULT) [address], [place] [address] CBC With Auto Diff.on 2020 Erythrocyte distribution width (RBC) [Ratio] 13.7 % Normal 11.6-14.8 [facility] Comment on above: Order Comment: Regul atory Requirements State: Only Absolute Cell Counts are reported with their reference ranges. Performed By: #### C OAGS #### [facility] (DEFAULT) [address] [place] [address] Hematocrit (Bld) [Volume fraction] 37.9 % Normal 36.0-46.0 [facility] Comment on above: Order Comment: Regul atory Requirements State: Only Absolute Cell Counts are reported with their reference ranges. Performed By: #### C OAGS #### [facility] (DEFAULT) [address] [place] [address] Hemoglobin (Bld) [Mass/Vol] 12.6 g/dL Normal 12.0-16.0 [facility] Comment on above: Order Comment: Regul atory Requirements State: Only Absolute Cell Counts are reported with their reference ranges. Performed By: #### C OAGS #### [facility] (DEFAULT) [address] [place] [address] Ig% 0.5 % Normal 0.0-4.0 [facility] Comment on above: Order Comment: Regul atory Requirements State: Only Absolute Cell Counts are reported with their reference ranges. Performed By: #### C OAGS #### [facility] (DEFAULT) [address] [place] [address] MCH (RBC) [Entitic mass] 28.8 pg Normal 26.0-34.0 [facility] Comment on above: Order Comment: Regul atory Requirements State: Only Absolute Cell Counts are reported with their reference ranges. Performed By: #### C OAGS #### [facility] (DEFAULT) [address] [place] [address] MCHC (RBC) [Mass/Vol] 33.2 g/dL Normal 31.0-37.0 [facility] Comment on above: Order Comment: Regul atory Requirements State: Only Absolute Cell Counts are reported with their reference ranges. Performed By: #### C OAGS #### [facility] (DEFAULT) [address] [place] [address]56 MCV (RBC) [Entitic vol] 87 fL Normal 80-100 [facility] Comment on above: Order Comment: Regul atory Requirements State: Only Absolute Cell Counts are reported with their reference ranges. Performed By: #### C OAGS #### [facility] (DEFAULT) [address] [place] [address] Platelet mean volume (Bld) [Entitic vol] 9.8 fL Normal 9.0-15.5 [facility] Comment on above: Order Comment: Regul atory Requirements State: Only Absolute Cell Counts are reported with their reference ranges. Performed By: #### C OAGS #### [facility] (DEFAULT) [address] [place] [address]16 Platelets (Bld) [#/Vol] 241 10*3/uL Normal 150-400 [facility] Comment on above: Order Comment: Regul atory Requirements State: Only Absolute Cell Counts are reported with their reference ranges. Performed By: #### C OAGS #### [facility] (DEFAULT) [address] [place] [address]59 RBC (Bld) [#/Vol] 4.37 10*6/uL Normal 4.00-5.20 [facility] Comment on above: Order Comment: Regul atory Requirements State: Only Absolute Cell Counts are reported with their reference ranges. Performed By: #### C OAGS #### [facility] (DEFAULT) [address] [place] [address]90 WBC (Bld) [#/Vol] 4.30 10*3/uL Low 4.50-11.00 [facility] Comment on above: Order Comment: Regul atory Requirements State: Only Absolute Cell Counts are reported with their reference ranges. Performed By: #### C OAGS #### [facility] (DEFAULT) [address], [place] [address] D-Dimer Quantitativeon 04-24 D-Dimer Quantitative >5000.0 High 6.0-450.0 [facility] Comment on above: Result Comment: A [...] ng/ml. Performed By: #### C OAGS #### [facility] (DEFAULT) [address] [place] [address] HBV + HCV screenon HBV + HCV screen >5000.0 ng/mL FEU 6.0-450.0 [facility] Work Phone: Comment on above: A [...] Manual Differential.on 04-24 Baso 0 % Normal [facility] Comment on above: Performed By: #### M DIFF1 #### [facility] (DEFAULT) [address] [place] [address] BASO# 0.00 X10E3/UL Normal 0.00-0.15 [facility] Comment on above: Performed By: #### M DIFF1 #### [facility] (DEFAULT) [address] [place] [address] Blasts 0 % Normal 0-0 [facility] Comment on above: Performed By: #### M DIFF1 #### [facility] (DEFAULT) [address] [place] [address] Blasts# 0.00 Normal 0.00-0.00 [facility] Comment on above: Performed By: #### M DIFF1 #### [facility] (DEFAULT) [address] [place] [address]183 EOS 0 % Normal [facility] Comment on above: Performed By: #### M DIFF1 #### [facility] (DEFAULT) [address] [place] [address]176 EOS# 0.00 X10E3/UL Normal 0.00-0.70 [facility] Comment on above: Performed By: #### M DIFF1 #### [facility] (DEFAULT) [address] [place] [address] LYM# 0.82 X10E3/UL Low 1.10-4.40 [facility] Comment on above: Performed By: #### M DIFF1 #### [facility] (DEFAULT) [address] [place] [address] Lymphocytes 19 % Normal [facility] Comment on above: Performed By: #### M DIFF1 #### [facility] (DEFAULT) [address] [place] [address] [place]# 0.00 X10E3/UL Low 1.50-7.50 [facility] Comment on above: Performed By: #### M DIFF1 #### [facility] (DEFAULT) [address] [place] [address]671 Metamyelocytes 0 % Normal 0-0 [facility] Comment on above: Performed By: #### M DIFF1 #### [facility] (DEFAULT) [address] [place] [address] MONO# 0.39 X10E3/UL Normal 0.20-0.95 [facility] Comment on above: Performed By: #### M DIFF1 #### [facility] (DEFAULT) [address] [place] [address] Monocytes 9 % Normal [facility] Comment on above: Performed By: #### M DIFF1 #### [facility] (DEFAULT) [address], [place] [address] MYELO 0.00 % Normal 0.00-0.00 [facility] Comment on above: Performed By: #### M DIFF1 #### [facility] (DEFAULT) [address], [place] [address] NEUT# 3.10 X10E3/UL Normal 1.50-7.50 [facility] Comment on above: Performed By: #### M DIFF1 #### [facility] (DEFAULT) [address] [address] Neutrophils 72 % Normal [facility] Comment on above: Performed By: #### M DIFF1 #### [facility] (DEFAULT) [address] [place] [address] NRBC 0 /100wbc Normal [facility] Comment on above: Performed By: #### M DIFF1 #### [facility] (DEFAULT) [address] [place] [address] Blood INR by coagulation ass ishmael 04-23-2021 INR Coag (Bld) [Relative time] 0.89 {INR} 0.90-1.20 [facility] Work Phone: Comment on above: Therapeutic range of an INR is 2.0 - 3.0.Prosthetic Valves: 2.5-3.5An INR >5.0 is considered critical. Blood activated partial thro mboplastin time (aPTT) by coagulation assayon 04-23-2021 aPTT Coag (Bld) [Time] 26.5 s 21.9-33.8 [facility] Work Phone: Blood prothrombin time (PT) by coagulation assayon 04-23-2021 PT Coag (Bld) [Time] 9.7 s 8.7-11.4 [facility] Work Phone: Bloodcultureon 04-23-2021 Bacteria identified Cx Nom (Bld) Criti al Result called to and read back by Rena toledo RN of Acute on 04/24/2021 7:42 PM by Anum Yip [...] STAPHYLOCOCCUS HOMINIS A Testi g Performed At: [facility] [place] [address] Staphylococcus hominis Sets Positive [1] of [2] GRAM STAIN RESULT BC: Gram Positive Cocci in clusters A Testi g Performed At: [facility] [place] [address] Sets Positive [1] of [2] [facility] Comment on above: Performed By: #### C OAGS #### [facility] (DEFAULT) [address] [place] [address] Bloodculture Second Seton Bloodculture Second Set Blood [...] After 5 Days Testi g Performed At: [address] Comment on above: Performed By: #### C OAGS #### [facility] (DEFAULT) [address] [place] [address] CBC With Auto Diff.on 2020 Basophils (Bld) [#/Vol] 0.01 10*3/uL Normal 0.00-0.30 [facility] Comment on above: Order Comment: Regul atory Requirements State: Only Absolute Cell Counts are reported with their reference ranges. Performed By: #### C BC #### [facility] (DEFAULT) [address], [place] [address] Basophils/100 WBC (Bld) 0.2 % Normal [facility] Comment on above: Order Comment: Regul atory Requirements State: Only Absolute Cell Counts are reported with their reference ranges. Performed By: #### C BC #### [facility] (DEFAULT) [address], [place] [address] Eosinophils (Bld) [#/Vol] 0.00 10*3/uL Normal 0.00-0.50 [facility] Comment on above: Order Comment: Regul atory Requirements State: Only Absolute Cell Counts are reported with their reference ranges. Performed By: #### C BC #### [facility] (DEFAULT) [address] [place] [address] Eosinophils/100 WBC (Bld) 0.0 % Normal [facility] Comment on above: Order Comment: Regul atory Requirements State: Only Absolute Cell Counts are reported with their reference ranges. Performed By: #### C BC #### [facility] (DEFAULT) [address] [place] [address] Erythrocyte distribution width (RBC) [Ratio] 13.8 % Normal 11.6-14.8 [facility] Comment on above: Order Comment: Regul atory Requirements State: Only Absolute Cell Counts are reported with their reference ranges. Performed By: #### C BC #### [facility] (DEFAULT) [address] [place] [address] Hematocrit (Bld) [Volume fraction] 40.5 % Normal 36.0-46.0 [facility] Comment on above: Order Comment: Regul atory Requirements State: Only Absolute Cell Counts are reported with their reference ranges. Performed By: #### C BC #### [facility] (DEFAULT) [address] [place] [address] Hemoglobin (Bld) [Mass/Vol] 13.3 g/dL Normal 12.0-16.0 [facility] Comment on above: Order Comment: Regul atory Requirements State: Only Absolute Cell Counts are reported with their reference ranges. Performed By: #### C BC #### [facility] (DEFAULT) [address], [place] [address] Ig% 0.3 % Normal 0.0-4.0 [facility] Comment on above: Order Comment: Regul atory Requirements State: Only Absolute Cell Counts are reported with their reference ranges. Performed By: #### C BC #### [facility] (DEFAULT) [address], [place] [address] Lymphocytes (Bld) [#/Vol] 1.20 10*3/uL Normal 0.90-4.00 [facility] Comment on above: Order Comment: Regul atory Requirements State: Only Absolute Cell Counts are reported with their reference ranges. Performed By: #### C BC #### [facility] (DEFAULT) [address], [place] [address] Lymphocytes/100 WBC (Bld) 19.5 % Normal [facility] Comment on above: Order Comment: Regul atory Requirements State: Only Absolute Cell Counts are reported with their reference ranges. Performed By: #### C BC #### [facility] (DEFAULT) [address], [place] [address] MCH (RBC) [Entitic mass] 28.9 pg Normal 26.0-34.0 [facility] Comment on above: Order Comment: Regul atory Requirements State: Only Absolute Cell Counts are reported with their reference ranges. Performed By: #### C BC #### [facility] (DEFAULT) [address], [place] [address] MCHC (RBC) [Mass/Vol] 32.8 g/dL Normal 31.0-37.0 [facility] Comment on above: Order Comment: Regul atory Requirements State: Only Absolute Cell Counts are reported with their reference ranges. Performed By: #### C BC #### [facility] (DEFAULT) [address] [place] [address] MCV (RBC) [Entitic vol] 88 fL Normal 80-100 [facility] Comment on above: Order Comment: Regul atory Requirements State: Only Absolute Cell Counts are reported with their reference ranges. Performed By: #### C BC #### [facility] (DEFAULT) [address], [place] [address] Monocytes (Bld) [#/Vol] 0.28 10*3/uL Low 0.30-0.90 [facility] Comment on above: Order Comment: Regul atory Requirements State: Only Absolute Cell Counts are reported with their reference ranges. Performed By: #### C BC #### [facility] (DEFAULT) [address], [place] [address] Monocytes/100 WBC (Bld) 4.5 % Normal [facility] Comment on above: Order Comment: Regul atory Requirements State: Only Absolute Cell Counts are reported with their reference ranges. Performed By: #### C BC #### [facility] (DEFAULT) [address] [place] [address] Neutrophils (Bld) [#/Vol] 4.65 10*3/uL Normal 1.70-7.00 [facility] Comment on above: Order Comment: Regul atory Requirements State: Only Absolute Cell Counts are reported with their reference ranges. Performed By: #### C BC #### [facility] (DEFAULT) [address] [place] [address] Neutrophils/100 WBC (Bld) 75.5 % Normal [facility] Comment on above: Order Comment: Regul atory Requirements State: Only Absolute Cell Counts are reported with their reference ranges. Performed By: #### C BC #### [facility] (DEFAULT) [address] [place] [address] Platelet mean volume (Bld) [Entitic vol] 9.5 fL Normal 9.0-15.5 [facility] Comment on above: Order Comment: Regul atory Requirements State: Only Absolute Cell Counts are reported with their reference ranges. Performed By: #### C BC #### [facility] (DEFAULT) [address] [place] [address] Platelets (Bld) [#/Vol] 202 10*3/uL Normal 150-400 [facility] Comment on above: Order Comment: Regul atory Requirements State: Only Absolute Cell Counts are reported with their reference ranges. Performed By: #### C BC #### [facility] (DEFAULT) [address], [place] [address] RBC (Bld) [#/Vol] 4.61 10*6/uL Normal 4.00-5.20 [facility] Comment on above: Order Comment: Regul atory Requirements State: Only Absolute Cell Counts are reported with their reference ranges. Performed By: #### C BC #### [facility] (DEFAULT) [address] [place], [place] [address] WBC (Bld) [#/Vol] 6.16 10*3/uL Normal 4.50-11.00 [facility] Comment on above: Order Comment: Regul atory Requirements State: Only Absolute Cell Counts are reported with their reference ranges. Performed By: #### C BC #### [facility] (DEFAULT) [address] [place], [place] [address]on [place], [place] [address] CHEST SINGLE VIEWon 04-23-20 21 CHEST SINGLE VIEW [facility] Patient: DELILAH MANCUSO [address] [place] [address] Admit Date: 04/23/21 /Age: 09 1980 ED Physician: Ramirez Grimaldo MD DIAGNOSTIC RADIOLOGY REQUISITION Attending Physician: Med Rec #: [id number] EXAM: CHEST SINGLE VIEW HISTORY: SOB, check [...] as other etiologies. Authenticated on: 04/23/21 1234 [id number]/RRIA 1234 Job ID# [id number] CC: Ramirez Grimaldo MD [facility] CTA THORAX W POST PROCESSING on 04-23-2021 CTA THORAX W POST PROCESSING [facility] Patient: DELILHA [address] [place] [address] Admit Date: 04/23/21 /Age: 09 1980 ED Physician: Ramirez Grimaldo MD DIAGNOSTIC RADIOLOGY REQUISITION Attending Physician: Alonso Rec #: [id number] EXAMINATION: CTA THORAX W POST PROCESSING HISTORY: Covid pneumonia and elevated d-dimer. Evaluate for pulmonary embolism. COMPARISON: None. TECHNIQUE: CT angiography of the chest was performed with IV contrast. MIP (maxmum intensity projection) images or 3D post processing was performed. CT dose reduction technique was used, including Automated Exposure Control. AI TECHNOLOGY: This study was processed using [employer] CT Technology. No prior found. Current Lung [...] compatiblewith viral pneumonia. Authenticated on: 04/23/21 140 00900/AMARA 02 02 Job ID# [id number] CC: Ramirez Grimaldo MD Normal [facility] Coagulation Panelon 04-23-20 aPTT Coag (Bld) [Time] 26.5 s Normal 21.9-33.8 [facility] Comment on above: Performed By: #### C OAGS #### [facility] (DEFAULT) [address] [place] [address] INR Coag (PPP) [Relative time] 0.89 {INR} Low 0.90-1.20 [facility] Comment on above: Result Comment: Ther apeutic range of an INR is 2.0 - 3.0. Prosthetic Valves: 2.5-3.5 An INR >5.0 is considered critical. Performed By: #### C OAGS #### [facility] (DEFAULT) [address] [place] [address] PT Coag (PPP) [Time] 9.7 s Normal 8.7-11.4 [facility] Comment on above: Performed By: #### C OAGS #### [facility] (DEFAULT) [address] [place] [address] Comprehensive Metabolic Pane nadia 04-23-2021 Albumin [Mass/Vol] 3.0 g/dL Low 3.2-4.5 [facility] Comment on above: Performed By: #### C OAGS #### [facility] (DEFAULT) [address] [place] [address] ALP [Catalytic activity/Vol] 100 U/L Normal 40-140 [facility] Comment on above: Performed By: #### C OAGS #### [facility] (DEFAULT) [address] [place] [address] ALT [Catalytic activity/Vol] 70 U/L High 14-65 [facility] Comment on above: Performed By: #### C OAGS #### [facility] (DEFAULT) [address] [place] [address] Anion gap [Moles/Vol] 15 mmol/L Normal 10-20 [facility] Comment on above: Performed By: #### C OAGS #### [facility] (DEFAULT) [address] [place] [address] AST [Catalytic activity/Vol] 38 U/L Normal 0-45 [facility] Comment on above: Performed By: #### C OAGS #### [facility] (DEFAULT) [address], [place] [address] Bilirubin [Mass/Vol] 0.3 mg/dL Normal 0.0-1.3 [facility] Comment on above: Performed By: #### C OAGS #### [facility] (DEFAULT) [address], [place] [address] Calcium [Mass/Vol] 8.9 mg/dL Normal 8.0-10.2 [facility] Comment on above: Performed By: #### C OAGS #### [facility] (DEFAULT) [address] [place] [address] Chloride [Moles/Vol] 105 mmol/L Normal 98-108 [facility] Comment on above: Performed By: #### C OAGS #### [facility] (DEFAULT) [address] [place] [address] CO2 [Moles/Vol] 20.0 mmol/L Low 21.0-32.0 [facility] Comment on above: Performed By: #### C OAGS #### [facility] (DEFAULT) [address] [place] [address] Creatinine [Mass/Vol] 0.7 mg/dL Normal 0.4-1.1 [facility] Comment on above: Performed By: #### C OAGS #### [facility] (DEFAULT) [address] [place] [address] GFR/1.73 sq M.predicted MDRD (S/P/Bld) [Vol rate/Area] 96 mL/min/{1.73_m2} Normal 60-1000 [facility] Comment on above: Result Comment: The eGFR should be used for monitoring renal function only and not for medication dosing. Performed By: #### C OAGS #### [facility] (DEFAULT) [address] [place] [address] Glucose [Mass/Vol] 177 mg/dL High 65-99 [facility] Comment on above: Performed By: #### C OAGS #### [facility] (DEFAULT) [address], [place] [address] Potassium [Moles/Vol] 4.2 mmol/L Normal 3.5-5.1 [facility] Comment on above: Performed By: #### C OAGS #### [facility] (DEFAULT) [address], [place] [address] Protein [Mass/Vol] 7.5 g/dL Normal 6.0-8.0 [facility] Comment on above: Performed By: #### C OAGS #### [facility] (DEFAULT) [address], [place] [address] Sodium [Moles/Vol] 136 mmol/L Normal 135-145 [facility] Comment on above: Performed By: #### C OAGS #### [facility] (DEFAULT) [address] [place] [address] Urea nitrogen [Mass/Vol] 11 mg/dL Normal 8-25 [facility] Comment on above: Performed By: #### C OAGS #### [facility] (DEFAULT) [address], [place] [address] D-Dimer Quantitativeon 04-23 D-Dimer Quantitative 1191.0 ng/mL FEU High 6.0-450.0 [facility] Comment on above: Result Comment: A [...] ng/ml. 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 Patient (more content not included)... Normal [facility] ID NOW SARS-CoV-2 RNA Qualit ativeon 04-23-2021 ID NOW COVID19 Detected Normal Not Detected [facility] Comment on above: Order Comment: Criti [...] at the following links: For Healthcare Providers: https//www.fda.gov/media/004427/download For Patients: https//www.fda.gov/media/054270/download Performed By: #### I GINEOUO05 #### [facility] (DEFAULT) [address] [place], [place] [address] INITIAL HS TROPONIN Ion 09-0 HS Troponin I 9 ng/L Normal 3-59 [facility] Comment on above: Performed By: #### C OAGS #### [facility] (DEFAULT) [address] [place], [place] [address] Lactic Acid, Plasmaon 2020 Lactic Acid, Plasma 1.2 mmol/L Normal 0.6-2.0 [facility] Comment on above: Performed By: #### L A #### [facility] (DEFAULT) [address] [place], [place] [address] No Panel Informationon 04-23 SARS Source Detected Not Detected [facility] Work Phone: Comment on above: This test [...] found at the following links:For Healthcare Providers: https//www.fda.gov/media/944845/downloadFor Patients: https//www.fda.gov/media/176654/download Troponin I High Sensitivity 9 ng/L 3 [facility] Work Phone: Serum or plasma lactate marce urement (moles/volume)on 04-23-2021 Lactate [Moles/Vol] 1.2 mmol/L 0.6-2.0 [facility] Work Phone: Hemoglobin A1Con 08-16-2020 Glucose [Mass/Vol] 183 mg/dL [place], [place] Comment on above: The ADA and AACC rec ommend providing the estimated average glucose result to permit better patient understanding of their HBA1c result. HbA1c (Bld) [Mass fraction] 8.0 % High 4 - 6 % [place], [place] Interpretation and review of laboratory results Abnormal [place] Lipid Panelon 08-16-2020 Cholesterol [Mass/Vol] 196 mg/dL <200 [place] Comment on above: Cholesterol Guidelines: <200 Desirable 200-240 Borderline >240 Undesirable Cholesterol in HDL [Mass/Vol] 51 mg/dL >40 [place] Comment on above: HDL Guidelines: <40 Undesirable 40-59 Borderline >59 Desirable Cholesterol in LDL [Mass/Vol] 82 mg/dL 0 - 130 mg/dL [place] Comment on above: LDL Guidelines: <100 Desirable 100-129 Near to/above Desirable 130-159 Borderline >159 Undesirable Direct (measured) LDL and calculated LDL are not interchangeable tests. Cholesterol in VLDL [Mass/Vol] NOT REPORTED High 1 - 30 mg/dL [place] Cholesterol.total/Ch olesterol in HDL [Mass ratio] 3.8 {ratio} <5 [place] Interpretation and review of laboratory results Abnormal [place] Triglyceride [Mass/Vol] 315 mg/dL High <150 [place] Comment on above: Triglyceride Guidelines: <150 Desirable 150-199 Borderline 200-499 High >499 Very high Based on AHA Guidelines for fasting triglyceride, May 2012. Patient Fasting?on 0 Patient Fasting? yes [place] Comprehensive Metabolic Pane nadia 05-02-2020 Albumin [Mass/Vol] 4.2 g/dL 3.5 - 5.2 g/dL [place], [place] Albumin/Globulin [Mass ratio] NOT REPORTED [place] ALP [Catalytic activity/Vol] 82 U/L 35 - 104 U/L [place] ALT [Catalytic activity/Vol] 55 U/L High 5 - 33 U/L [place] Anion gap [Moles/Vol] 12 mmol/L 9 - 17 mmol/L [place] AST [Catalytic activity/Vol] 26 U/L <32 [place] Bilirubin Ql (U) 0.32 mg/dL 0.3 - 1.2 mg/dL [place] Bun/Cre Ratio 15 [place] Calcium [Mass/Vol] 9.3 mg/dL 8.6 - 10. 4 mg/dL [place] Chloride [Moles/Vol] 101 mmol/L 98 - 10 7 mmol/L [place] CO2 [Moles/Vol] 22 mmol/L 20 - 31 mmol/L [place] Creatinine [Mass/Vol] 0.67 mg/dL 0.5 - 0.9 mg/dL [place] GFR >60 >60 mL/min [place] GFR Non- >60 >60 mL/min [place] GFR/1.73 sq M predicted among non-blacks MDRD (S/P/Bld) [Vol rate/Area] [place] Comment on above: Average GFR for 30-3 9 years old: 107 mL/min/1.73sq m Chronic Kidney Disease: <60 mL/min/1.73sq m Kidney failure: <15 mL/min/1.73sq m eGFR calculated using average adult body mass. Additional eGFR calculator available at: http://www.[employer]/multiple_crcl_2012.htm GFR/1.73 sq M predicted among non-blacks MDRD (S/P/Bld) [Vol rate/Area] NOT REPORTED [place] Glucose [Mass/Vol] 190 mg/dL High 70 - 99 mg/dL [place], [place] Interpretation and review of laboratory results Abnormal [place] Potassium [Moles/Vol] 4.1 mmol/L 3.7 - 5.3 mmol/L [place] Protein [Mass/Vol] 8.2 g/dL 6.4 - 8.3 g/dL [place], [place] Sodium [Moles/Vol] 135 mmol/L 135 - 144 mmol/L [place] Urea nitrogen [Mass/Vol] 10 mg/dL 6 - 20 mg/dL [place] Lipid Panelon 05-02-2020 Cholesterol [Mass/Vol] 191 mg/dL <200 [place] Comment on above: Cholesterol Guidelines: <200 Desirable 200-240 Borderline >240 Undesirable Cholesterol in HDL [Mass/Vol] 45 mg/dL >40 [place] Comment on above: HDL Guidelines: <40 Undesirable 40-59 Borderline >59 Desirable Cholesterol in LDL [Mass/Vol] 86 mg/dL 0 - 130 mg/dL [place] Comment on above: LDL Guidelines: <100 Desirable 100-129 Near to/above Desirable 130-159 Borderline >159 Undesirable Direct (measured) LDL and calculated LDL are not interchangeable tests. Cholesterol in VLDL [Mass/Vol] NOT REPORTED High 1 - 30 mg/dL [place] Cholesterol.total/Ch olesterol in HDL [Mass ratio] 4.2 {ratio} <5 [place] Interpretation and review of laboratory results Abnormal [place] Triglyceride [Mass/Vol] 301 mg/dL High <150 [place] Comment on above: Triglyceride Guidelines: <150 Desirable 150-199 Borderline 200-499 High >499 Very high Based on AHA Guidelines for fasting triglyceride, May 2012. Microalbumin / Creatinine Ur ine Ratioon 05-02-2020 Albumin/Creatinine DL <= 20 mg/L (24H U) [Mass ratio] <12 <21 mg/L [place] Albumin/Creatinine DL <= 20 mg/L (U) [Ratio] CANNOT BE CALCULATED <25 mcg/mg creat [place], [place] Creatinine, Ur 205.1 mg/dL 28 - 217 mg/dL [place] Patient Fasting?on 0 Patient Fasting? YES [place] Coding Summary.on 01-25-2020 Coding Summary. CODING DATE: 01/25/2020 FINAL [facility] STATUS: Home (Routine DC) PAYOR: Medical [employer]pi[employer] ADMIT DX: REASON FOR VISIT DX: Z01.812 [...] Chester CphT Date Saved: 01/25/2020 02:47 pm Normal [facility] Postoperative Documentson Postoperative Documents [id number]#1 .00CD:127 Normal [facility] IntraOperative Documentson 0 01-19-2020 IntraOperative Documents [id number]#1 .00CD:127 Normal [facility] Coding Summary.on 01-18-2020 Coding Summary. CODING DATE: 01/18/2020 FINAL [facility] STATUS: Home (Routine DC) PAYOR: [employer] APC DESCRIPTION 5362 Level 2 Laparoscopy and Related Services ADMIT DX: REASON FOR VISIT DX: N80.9 Endometriosis, unspecified FINAL DX: PRINCIPAL: N80.0 Endometriosis of uterus SECONDARY: N87.9 Dysplasia of cervix uteri, unspecified R10.2 Pelvic and perineal pain N81.89 Other female genital prolapse I10 Essential (primary) hypertension E11.9 Type 2 diabetes mellitus without complications Z79.84 custodial (current) use of oral hypoglycemic drugs PYMT PROC APC STAT DESCRIPTION DOCTOR NAME DATE 59820 5362 J1 Laparoscopy, surgical, Alli Gaston MD 01/15/2020 with total hysterectomy, for uterus 250 g or less; with removal of tube(s) and/or ovary(s) [address] Anesthesia for Dhaval Bellamy DOJabier 01/15/2020 intraperitoneal procedures in lower abdomen including laparoscopy; not otherwise specified NOTE: The code number assigned matches the documented diagnosis and / or procedure in the patient's chart. However, the narrative phrase printed from the coding software may appear abbreviated, or result in slightly different terminology. Revised Coded By: Sandra Salguero Revised Date Saved: 01/18/2020 12:27 pm [facility] [place] [facility] Consent for Anesthesiaon Consent for Anesthesia [id number]# 1.00CD:127 [facility] [place] [facility] Discharge Instructionson Discharge Instructions [id number]# 1.00CD:127 [facility] [place] [facility] IntraOperative Documentson 0 01-18-2020 IntraOperative Documents [id number]# 1.00CD:127 [facility] [place] [facility] IntraOperative Documents [id number]# 1.00CD:127 [facility] [place] [facility] Main OR Intraoperative Recor don 01-18-2020 Main OR Intraoperative Record IntraOp Document Type FT Summary Primary Physician: Alli Gaston MD Finalized Date/Time: 01/18/20 09:27:07 Pt. Name: DELILAH MANCUSO /Sex: 1980 Female Med Rec #: [id number] Physician: Alli Gaston MD Financial #: [id number] Pt. Type: A Room/Bed: AS0701 Admit/Disch: 01/15/20 05:56:52 - 01/15/20 15:15:00 Institution: Case Times FT Entry 1 Patient Times In Room 01/15/20 07:41:00 Out Room 01/15/20 09:42:00 Procedure Times Start 01/15/20 08:06:00 Stop 01/15/20 09:36:00 Anesthesia Times Start 01/15/20 07:41:00 Stop 01/15/20 09:42:00 Last Modified By: Sheree Park RN 01/15/20 09:45:43 General Comments: 0820: robot docked. [id number]: dr gaston out of room for consultation 0840:surgeon to console 01/18/2020 Chart opened to review and send charges Alayna Humphreys ENGRAVING PRESS OPERATOR Case Attendance FT Entry 1 Entry 2 Entry 3 Case Attendee Dhaval Bellamy DO, Jabier Gaston MD, Alli Mittal ENGRAVING PRESS OPERATOR/SA, Adelita Role Performed Anesthesiologist of Surgeon - Primary ENGRAVING PRESS OPERATOR/SA Record Time In 01/15/20 07:41:00 01/15/20 07:56:00 01/15/20 07:41:00 Time Out 01/15/20 09:42:00 01/15/20 09:26:00 01/15/20 09:42:00 Procedure HYSTERECTOMY, ROBOT HYSTERECTOMY, ROBOT HYSTERECTOMY, ROBOT ASSISTED(Bilateral) ASSISTED(Bilateral) ASSISTED(Bilateral) Comments Last Modified By: Xavier MATT, Sheree Park RN, Sheree Early RN 01/15/20 09:45:44 01/15/20 09:45:44 01/15/20 09:45:44 Entry 4 Entry 5 Entry 6 Case Attendee Xavier MATT, Sheree Ray ENGRAVING PRESS OPERATOR, Marta Vieira RN, CNOR, Connie Role Performed Show Card Letterer - Primary Scrub - Primary Scrub - Other Time In 01/15/20 07:41:00 01/15/20 07:41:00 01/15/20 07:41:00 Time Out 01/15/20 09:42:00 01/15/20 09:42:00 01/15/20 09:23:00 Procedure HYSTERECTOMY, ROBOT HYSTERECTOMY, ROBOT HYSTERECTOMY, ROBOT ASSISTED(Bilateral) ASSISTED(Bilateral) ASSISTED(Bilateral) Comments 2nd scrub Last Modified By: Sheree Park RN, RN, Sheree Early RN 01/15/20 09:45:44 01/15/20 [...] (If Applicable) PreOp Antibiotic Yes Time Out Dhaval Bellamy DO, Jabier Given Theodora Stewart, Erika RODRIGUEZ, Alli Dickens, Daxa ENGRAVING PRESS OPERATOR/Adelita OWEN Farris RN, Flor Cabrera CST, Isha Gann RN, CNOR, Maritza Barth Time Out Complete 01/15/20 08:05:00 [...] POSSIBLE VAGINAL Primary Procedure Yes Primary Surgeon Erika RODRIGUEZ, Alli Dickens Start 01/15/20 08:06:00 Stop 01/15/20 09:36:00 Anesthesia [...] and tissue Entry 1 Skin Integrity Intact, [place], Warm, and Skin Abnormality No Dry Outcomes [...] Puentes Jr., DO, Farris RN, Karen M, Blank RN, CNOR, Erika Rosales MD, Alli Dickens [...] Condition Condition Grounding Pad Sheree Park RN By Outcomes Met? Yes Last Modified By: [...] PEOPLES, Marta Ray CST, Isha Gann RN, CNORMaritza, Sheree Park RN Outcomes Met? Yes Yes Last Modified By: Sheree aPrk RN, RN, Karen M 01/15/20 09:46:18 01/15/20 [...] safely administered during the perioperative period For [place] please see scanned medication reconcilliation form for medications used at the field during the procedure. Urinary Catheter Pre-Care Text: Patient is prepped using sterile technique. Entry 1 Urinary Catheter TRAY URINE CHANDRA CATH Present Upon Arrival No Inserted LF 16FR [[id number]][F] Insertion Date/Time 01/15/20 08:00:00 Urine Residual 60 Insertion Site Uretheral Urine clear yellow Characteristics Inserted By Daxa PEOPLES/, Adelita Discontinued? No Outcomes Met? Yes Last [...] BLANKET MISTRAL AIR Quantity 1 Aid TORSO [[id number]][F] Fluid/Ringling Unit Mistral warming system Setting high/43 degrees Body Site Upper anterior torso Last Modified By: Sheree Park RN 01/15/20 07:25:29 Case Comments Finalized By: Jennifer Humphreys CST Document Signatures Signed By: Sheree Park RN 01/15/20 09:46 Jennifer Humphreys CST 01/18/20 09:27 Normal [facility] Preoperative Documentson Preoperative Documents [id number]# 1.00CD:127 Normal [facility] Operative Reporton 0 Operative Report Date of [...] Ruma were then used to follow the [employer] manipulator guideline for creation of the vaginal [...] Alli Gaston MD, FACOG crj Dictated: 01/15/2020 #[id number] Typed: 01/16/2020 #[id number] cc: Alli Gaston MD, TAPAN Normal [facility] Comment on above: Result Comment: Elec tronically Signed By: Erika RODRIGUEZ, Alli Jacob.br\Date and Time Signed: 01/17/20 07:01 EDT ABO/Rhon 01-15-2020 ABO/Rh Positive [facility] Comment on above: Performed By: #### 2 806787, [id number], 5992158, 5660655, 18214959, 6889275 #### [facility] Laboratory [address] [place] [address] ABO/Rh History Checkon 01-14 ABO/Rh History Check Verified Hx Blood Type Normal [facility] Comment on above: Performed By: #### 2 975449, 12390848, 2197258, 1410761, 51868768, 6630382 #### [facility] [address] [place] [address] ABSCon 01-15-2020 ABSC Gel Interp Negative Normal [facility] Comment on above: Performed By: #### 2 758253, 75773326, 3993672, 5024875, 49061903, 2016806 #### [facility] [address] [place] [address] Blood Bank ID#on 01-15-2020 BBID# [id number] [facility] Comment on above: Performed By: #### 2 567027, 73960378, 0909333, 2152495, 76121213, 6437470 #### [facility] [address] [place] [address] Blood Bank Slipon 01-15-2020 Blood Bank Slip [id number] .00CD:127 Normal [facility] History and Physicalon 01-14 History and Physical [...] Alli Gaston MD, FACOG gls Dictated: 01/14/2020 #[id number] Typed 01/15/2020 #[id number] cc: Alli Gaston MD, FACOG Normal [facility] Comment on above: Result Comment: Elec tronically Signed By: Erika RODRIGUEZ, Alli Dickens\.br\Date and Time Signed: 01/15/20 09:31 EDT Inpatient Patient Summaryon 01-15-2020 Inpatient Patient Summary [address] [address] [facility] Clinical Discharge Instructions PERSON INFORMATION Name: DELILAH MANCUSO [facility]#:[id number] PHYSICIANS Admitting Physician: Alli Gaston MD Attending Physician: Alli Gaston MD PCP: SHYAM REYNOLDS MD Discharge Diagnosis: Diabetes; Endometriosis; Female pelvic pain; Pelvic relaxation; S/P total hysterectomy; Status post bilateral salpingectomy Comment: PATIENT EDUCATION INFORMATION Instructions: NEGATIVE NOTCHER - Post Hysterectomy/[place] my/Major Surgery-Erika (Custom); Post Op Patient Instructions - MARYLU (Custom) Medication Leaflets: Follow up: With: Address: When: Alli Gaston [facility] [employer], [address] [address] [place] (1) Within 6 weeks With: Address: When: Alli Gaston [facility] [employer], [facility] [address], [place] [address] [place] (1) Within 2 weeks Comments: Call for any problems. MEDICATION LIST New Medications [address], [address], [place] [id number], [phone] acetaminophen-oxycodo ne (Percocet 325 mg-5 mg Tab) [...] tab By Mouth every day. Comment: Normal [facility] Main OR PACU I Recordon 12-18 Main OR PACU I Record PACU Phase I Document Type FT Summary Primary Physician: Alli Gaston MD Finalized Date/Time: 01/15/20 10:57:46 Pt. Name: BARTOLOMEDELILAH /Sex: 1980 Female Med Rec #: [id number] Physician: Alli Gaston MD Financial #: [id number] Pt. Type: A Room/Bed: 02/16 Admit/Disch: 01/15/20 05:56:52 - Institution: Case Times [...] By: Joanna Macias RN 01/15/20 10:57 Normal [facility] Main OR PACU II Recordon Main OR PACU II Record PACU Phase II Document Type FT Summary Primary Physician: Alli Gaston MD Finalized Date/Time: 01/15/20 15:31:21 Pt. Name: DELILAH MANCUSO/Sex: 1980 Female Med Rec #: [id number] Physician: Alli Gaston MD Financial #: [id number] Pt. Type: A Room/Bed: [place] [address] Admit/Disch: 01/15/20 05:56:52 - Institution: Case Times [...] Irene Silva LPN Document Signatures Signed By: rIene Silva LPN 01/15/20 15:31 Normal [facility] Main OR Preoperative Recordo n 01-15-2020 Main OR Preoperative Record PreOp Document Type FT Summary Primary Physician: Alli Gaston MD Finalized Date/Time: 01/15/20 08:51:01 Pt. Name: DELILAH MANCUSO Chrissie /Sex: 1980 Female Med Rec #: [id number] Physician: Alli Gaston MD Financial #: [id number] Pt. Type: A Room/Bed: [place] [address] Admit/Disch: 01/15/20 05:56:52 - Institution: Case Times [...] By: Sheree Park RN 01/15/20 08:51 Normal [facility] Monitor Recordon 01-15-2020 Monitor Record [id number]# 1.00CD:127 Normal [facility] Monitor Record [id number]# 1.00CD:127 Normal [facility] Patient Education - Texton 0 [...] or cramps. PLEASE CALL FOR ANY PROBLEMS. [facility] Progress Note-Physicianon Progress Note-Physician Patient: DELILAH MANCUSO [...] Cap 161 mg/dL HI POC Device SN [id number] POC Username DUYEN YEH 01/15/2020 6:13 EDT [...] interpretation: SINUS RHYTHM WITH SINUS ARRHYTHMIA. Plan [place] [employer] (ASA) physical status classification: Class III. Anesthetic Preoperative Plan Anesthesia: General. . Anesthetic plan, risks, benefits, and alternatives discussed with the patient and/or family. Patient verbalized understanding. Adverse reactions, complications, and alternatives discujssed. Consent signed and on chart.. Normal [facility] Comment on above: Result Comment: Elec tronically Signed By: Dhaval Bellamy DO, Jabier Stewart\.khoi\Date and Time Signed: 01/15/20 07:02 EDT U BetaHcg Qualon 01-15-2020 HCG.beta subunit (U) [Moles/Vol] Negative Normal [facility] Comment on above: Performed By: #### 2 [id number] #### [facility] Laboratory [address] [place] [address] UA With Cult Reflexon 2019 Bacteria LM Ql (Urine sed) TRACE Normal Trace [facility] Comment on above: Performed By: #### 2 323768, 90808430, 2464786, 7516467, 80210492, 3138004 #### [facility] Laboratory [address] [place] [address] Bilirubin Ql (U) Negative Normal Negative [facility] Comment on above: Performed By: #### 2 513152, 79329955, 4815829, 9509695, 86068105, 9580671 #### [facility] [address] [place] [address] Clarity (U) CLEAR Normal Clear [facility] Comment on above: Performed By: #### 2 071691, 68971093, 7069283, 7062661, 46487012, 3679321 #### [facility] [address] [place] [address] Color (U) YELLOW Normal Yellow [facility] Comment on above: Performed By: #### 2 715584, 13743552, 6104543, 7626318, 66857269, 3922048 #### [facility] [address] [place] [address] Crystals LM Ql (Urine sed) Present Normal [facility] Comment on above: Performed By: #### 2 272892, 06108956, 7014151, 8095273, 08064983, 5266349 #### [facility] [address] [place] [address] Epithelial cells.squamous LM.HPF (Urine sed) [#/Area] 0-2 Normal 0-2 [facility] Comment on above: Performed By: #### 2 270595, 44463821, 4986559, 3257666, 12007223, 2766300 #### [facility] [address] [place] [address] Glucose Test strip (U) [Mass/Vol] Negative Normal Negative [facility] Comment on above: Performed By: #### 2 448954, 30051525, 6750511, 9749115, 96788715, 9036340 #### [facility] [address] [place] [address] Hemoglobin Ql (U) Negative Normal Negative [facility] Comment on above: Performed By: #### 2 297489, 28358757, 5508416, 0455483, 67609519, 2594240 #### [facility] Laboratory [address] [address] Ketones (U) [Mass/Vol] Negative Normal Negative [facility] Comment on above: Performed By: #### 2 351887, 93047059, 2435490, 7036512, 59269283, 4391372 #### [facility] [address] [place] [address] Mound.plasma/Lithi um.RBC (Bld) [Mass ratio] 0-3 Normal 0-3 [facility] Comment on above: Performed By: #### 2 685533, 90588875, 0844234, 1474863, 86017035, 7950532 #### [facility] [address] [place] [address] Mucus Ql (Urine sed) 1+ Normal [facility] Comment on above: Performed By: #### 2 173961, 41654620, 7888697, 0597951, 42471641, 9466950 #### [facility] [address] [place] [address] Nitrite Ql (U) Negative Normal Negative [facility] Comment on above: Performed By: #### 2 183196, 89177516, 2006887, 4203832, 86057877, 6971220 #### [facility] Laboratory [address] [place] [address] pH (U) 5.5 [pH] 5.0-9.0 [facility] Comment on above: Performed By: #### 2 915595, 55986688, 9798308, 5214270, 88235092, 2926067 #### [facility] [address] [place] [address] Protein (U) [Mass/Vol] Negative Normal Negative [facility] Comment on above: Performed By: #### 2 196495, 58832164, 9208059, 7367047, 95765693, 8051535 #### [facility] [address] [place] [address] Specific gravity (U) [Rel density] 1.025 1.005-1.030 [facility] Comment on above: Performed By: #### 2 226308, 01541176, 6293881, 5131002, 64853624, 7219087 #### [facility] [address] [place] [address] UA Spec Desc Lowry Normal [facility] Comment on above: Performed By: #### 2 558445, 92386249, 2420606, 1944623, 40186830, 3820403 #### [facility] [address] [place] [address] Urobilinogen Qn (U) 0.2 {Erasmo'U}/dL Normal 0.0-1.0 [facility] Comment on above: Performed By: #### 2 381025, 59783426, 8005287, 2252950, 04730092, 5943829 #### [facility] [address] [place] [address] WBC Auto Ql (U) Negative Normal Negative [facility] Comment on above: Performed By: #### 2 093412, 76310443, 4058410, 9644619, 83084401, 8138392 #### [facility] [address] [place] [address] WBC LM.HPF (Urine sed) [#/Area] 0-5 Normal 0-5 [facility] Comment on above: Performed By: #### 2 508331, 73572651, 4401050, 2262617, 99560903, 9783873 #### [facility] [address] [place] [address] Coding Summary.on 01-05-2020 Coding Summary. CODING DATE: 01/05/2020 FINAL [facility] DSC STATUS: Home (Routine DC) PAYOR: Medical [employer] DESCRIPTION 5733 Level 3 Minor Procedures [...] CphT Date Saved: 01/05/2020 02:42 pm Normal [facility] ABO/Rh Retypeon 01-04-2020 ABO/Rh Retype Interp Positive [facility] Comment on above: Performed By: #### 1 [id number] #### [facility] [address] [place] [address] B hCG Qualon 01-04-2020 Beta hCG Ql Negative Normal [facility] Comment on above: Performed By: #### 2 9389497 #### [facility] [address] [place] [address] BUNon 01-04-2020 Urea nitrogen [Mass/Vol] 12 mg/dL Normal 5-21 [facility] Comment on above: Performed By: #### 2 547977, 70253909, 5080480, 0288827, 68376036, 5750172 #### [facility] [address] [place] [address] CBC w/Indiceson 01-04-2020 Erythrocyte distribution width (RBC) [Ratio] 13.0 % Normal 10.9-14.2 [facility] Comment on above: Performed By: #### 2 406080, 86960333, 9195656, 8185219, 70740440, 6429005 #### [facility] [address] [place] [address] Hematocrit (Bld) [Volume fraction] 37.1 % Normal 34.0-46.0 [facility] Comment on above: Performed By: #### 2 920882, 44364438, 9792413, 9118078, 98389573, 4887096 #### [facility] [address] [place] [address] Hemoglobin (Bld) [Mass/Vol] 12.4 g/dL Normal 12.0-16.0 [facility] Comment on above: Performed By: #### 2 769543, 82977367, 7202707, 0672659, 17616330, 4940463 #### [facility] Laboratory [address] [place] [address] MCH (RBC) [Entitic mass] 28.8 pg Normal 27.0-34.0 [facility] Comment on above: Performed By: #### 2 880851, 96576878, 2390411, 8141025, 71022887, 0630026 #### [facility] [address] [place] [address] MCHC (RBC) [Mass/Vol] 33.4 g/dL Normal 31.4-36.0 [facility] Comment on above: Performed By: #### 2 756510, 71189316, 1674161, 7851234, 45115990, 1379959 #### [facility] [address] [place] [address] MCV (RBC) [Entitic vol] 86.2 fL Normal 80.0-100.0 [facility] Comment on above: Performed By: #### 2 142876, 91090313, 1632197, 9730917, 96231499, 5791428 #### [facility] [address] [place] [address] Platelet mean volume (Bld) [Entitic vol] 7.8 fL Normal 6.4-10.8 [facility] Comment on above: Performed By: #### 2 499603, 83626320, 7961576, 2965057, 98533477, 6999086 #### [facility] [address] [place] [address] Platelets (Bld) [#/Vol] 266.0 E9/L Normal 150.0-500.0 [facility] Comment on above: Performed By: #### 2 293900, 67673072, 8794822, 2113037, 07085633, 2242965 #### [facility] [address] [place] [address] RBC (Bld) [#/Vol] 4.3 E12/L Normal 4.3-5.9 [facility] Comment on above: Performed By: #### 2 820835, 44417224, 6751590, 0624748, 90510821, 1314244 #### [facility] [address] [place] [address] WBC corrected for nucl RBC Auto (Bld) [#/Vol] 8.4 E9/L Normal 4.0-11.0 [facility] Comment on above: Performed By: #### 2 034368, 05122696, 0618327, 4388215, 25317162, 0707446 #### [facility] [address] [place] [address] Creatinineon 01-04-2020 Creatinine [Mass/Vol] 0.6 mg/dL Normal 0.5-1.3 [facility] Comment on above: Performed By: #### 2 403382, 13608246, 7970450, 8793673, 02538551, 7776999 #### [facility] [address] [place] [address] Lyteson 01-04-2020 Anion gap [Moles/Vol] 12 mmol/L Normal 6-16 [facility] Comment on above: Performed By: #### 2 585564, 48942672, 6776767, 6304520, 90734101, 1812225 #### [facility] [address] [place] [address] Chloride [Moles/Vol] 104 mmol/L Normal 101-111 [facility] Comment on above: Performed By: #### 2 461256, 89049498, 7087510, 7594479, 68146577, 4312364 #### [facility] [address] [place] [address] CO2 [Moles/Vol] 23 mmol/L Normal 21-31 [facility] Comment on above: Performed By: #### 2 925181, 89889915, 6838425, 5812562, 52387559, 3283677 #### [facility] [address] [place] [address] Potassium [Moles/Vol] 4.0 mmol/L Normal 3.5-5.3 [facility] Comment on above: Performed By: #### 2 919200, 11578813, 4820441, 0962701, 30951761, 4613925 #### [facility] [address] [place] [address] Sodium [Moles/Vol] 135 mmol/L Normal 135-145 [facility] Comment on above: Performed By: #### 2 982455, 57468793, 8335038, 6156256, 08263535, 9646977 #### [facility] [address] [place] [address] PT & PTTon 01-04-2020 aPTT Coag (PPP) [Time] 27.5 second(s) Normal 25.1-36.5 [facility] Comment on above: Result Comment: Hepa rin therapeutic range (represented by Anti-Factor Xa activity of 0.2 - 0.4 U/mL) corresponds to PTT of 56.6 - 109.0 sec. Performed By: #### 2 402359, 31994284, 8932013, 5170327, 98543393, 4578073 #### [facility] [address] [place] [address] INR Coag (PPP) [Relative time] 0.9 {INR} [facility] Comment on above: Result Comment: INR results are specifically intended to assess patients stabilized on long-term Anticoagulation therapy suggested INR?s ?Less Intensive Anticoagulation? 2.0 ? 3.0 Conventional Range 3.0 ? 4.5 Performed By: #### 2 131575, 00944264, 6294677, 1910235, 90381652, 7110642 #### [facility] [address] [place] [address] PT Coag (PPP) [Time] 10.4 second(s) Normal 10.2-12.9 [facility] Comment on above: Performed By: #### 2 214614, 76061973, 6189632, 9982721, 98008919, 9051955 #### [facility] [address] [place] [address] eGFRon 01-04-2020 GFR/1.73 sq M predicted among blacks MDRD (S/P/Bld) [Vol rate/Area] mL/min/{1.73_m2} Normal >=59 [facility] Comment on above: Order Comment: Order added by Discern Expert. Result Comment: eGFR is race adjusted. AA=. Performed By: #### 2 573092, 58832852, 4129421, 8189963, 20369661, 3888069 #### [facility] [address] [place] [address] GFR/1.73 sq M predicted among non-blacks MDRD (S/P/Bld) [Vol rate/Area] mL/min/{1.73_m2} Normal >=59 [facility] Comment on above: Order Comment: Order added by Discern Expert. Result Comment: [employer]naissance Crewmember krissy kidney disease could be indicated at eGFR's of less than 60 mL/min/1.73m2. Kidney failure is indicated at less than 15 mL/min/1.73m2. Performed By: #### 2 098426, 52970791, 6954503, 5653553, 88251923, 5491021 #### [facility] [address] [place] [address] Microalb.,Random Uron 2017 Creatinine 162.3 mg/dL Normal 28.0-217.0 [facility] Comment on above: Performed By: #### C NOLVIA ####[address] [place] [address] Microalb/Creat Ratio CANNOT BE CALCULATED Normal <25 [facility] Comment on above: Performed By: #### C NOLVIA ####[address] [place] [address] Microalbumin conc. <12 Normal <21 [facility] Comment on above: Performed By: #### Horacio DE SOUZA ####[address] [place] [address] Vital Signs Date Time Vital Sign Value Performing Clinician Karissa blackwell 04-14-2022 22:24-0400 Respiratory rate 17 /min Raf Wilson MD Work Phone: [facility] 04-14-2022 22:20-0400 Diastolic blood pressure 76 mm[Hg] Raf Wilson MD Work Phone: [facility] 04-14-2022 22:20-0400 Heart rate 88 /min Raf Wilson MD Work Phone: [facility] 04-14-2022 22:20-0400 Systolic blood pressure 131 mm[Hg] Raf Wilson MD Work Phone: [facility] 04-14-2022 22:10-0400 SaO2% (BldA) [Mass fraction] 100 % Raf Wilson MD Work Phone: [facility] 04-14-2022 19:51-0400 Body height 170.2 cm Raf Wilson MD Work Phone: [facility] 04-14-2022 19:51-0400 Body mass index (BMI) [Ratio] 40.27 kg/m2 Raf Wilson MD Work Phone: [facility] 04-14-2022 19:51-0400 Body temperature 100.4 [degF] Raf Wilson MD Work Phone: [facility] 04-14-2022 19:51-0400 Body weight 116.62 kg Raf Wilson MD Work Phone: [facility] 01-01-2022 15:11-0400 Diastolic blood pressure 80 mm[Hg] Desmond Reynolds MD Work Phone: [employer] 01-01-2022 15:11-0400 SaO2% (BldA) [Mass fraction] 100 % Desmond Reynolds MD Work Phone: [facility] [employer] 01-01-2022 15:11-0400 Systolic blood pressure 135 mm[Hg] Desmond Reynolds MD Work Phone: [facility] [employer] 01-01-2022 14:06-0400 Body mass index (BMI) [Ratio] 39.53 kg/m2 Desmond Reynolds MD Work Phone: [facility] [employer] 01-01-2022 14:06-0400 Body temperature 97.7 [degF] Desmond Reynolds MD Work Phone: [facility] [employer] 01-01-2022 14:06-0400 Body weight 117.94 kg Desmond Reynolds MD Work Phone: [facility] [employer] 01-01-2022 14:06-0400 Heart rate 106 /min Desmond Reynolds MD Work Phone: [facility] [employer] 01-01-2022 14:06-0400 Respiratory rate 16 /min Desmond Reynolds MD Work Phone: [facility] [employer] 05-08-2021 15:14-0400 Body height 172.7 cm Bob Amaya MD Work Phone: [facility] [employer] Work Phone: 05-08-2021 15:14-0400 Body mass index (BMI) [Ratio] 38.77 kg/m2 Bob Amaya MD Work Phone: [facility] [employer] Work Phone: 05-08-2021 15:14-0400 Body temperature 99.19 [degF] Bob Amaya MD Work Phone: [facility] [employer] Work Phone: 05-08-2021 15:14-0400 Body weight 115.67 kg Bob Amaya MD Work Phone: [facility] [employer] Work Phone: 05-08-2021 15:14-0400 Diastolic blood pressure 86 mm[Hg] Bob Amaya MD Work Phone: [facility] [employer] Work Phone: 05-08-2021 15:14-0400 Heart rate 92 /min Bob Amaya MD Work Phone: [facility] [employer] Work Phone: 05-08-2021 15:14-0400 Respiratory rate 20 /min Bob Amaya MD Work Phone: [facility] [employer] Work Phone: 05-08-2021 15:14-0400 SaO2% (BldA) [Mass fraction] 97 % Bob Amaya MD Work Phone: [facility] [employer] Work Phone: 05-08-2021 15:14-0400 Systolic blood pressure 150 mm[Hg] Bob Amaya MD Work Phone: [facility] [employer] Work Phone: 04-27-2021 11:26-0400 Diastolic blood pressure 89 mm[Hg] MD RAMIREZ GRIMALDO Work Phone: [facility] Work Phone: 04-27-2021 11:26-0400 Heart rate 92 /min MD RAMIREZ GRIMALDO Work Phone: [facility] Work Phone: 04-27-2021 11:26-0400 SaO2% (BldA) [Mass fraction] 95 % MD RAMIREZ GRIMALDO Work Phone: [facility] Work Phone: 04-27-2021 11:26-0400 Systolic blood pressure 129 mm[Hg] MD RAMIREZ GRIMALDO Work Phone: [facility] Work Phone: 04-27-2021 10:39-0400 Body temperature 98.1 [degF] MD RAMIREZ GRIMALDO Work Phone: [facility] Work Phone: 04-27-2021 10:39-0400 Respiratory rate 20 /min MD RAMIREZ GRIMALDO Work Phone: [facility] Work Phone: 04-23-2021 15:35-0400 Body height 170.18 cm MD RAMIREZ GRIMALDO Work Phone: [facility] Work Phone: 04-23-2021 15:35-0400 Body mass index (BMI) [Ratio] 40.5 kg/m2 MD RAMIREZ GRIMALDO Work Phone: [facility] Work Phone: 04-23-2021 15:35-0400 Body weight 117.4 kg MD RAMIREZ GRIMALDO Work Phone: [facility] Work Phone: Encounters Encounter Date Encounter Type Care Provider Facility Start: 03-21-2024 End: 03-21-2024 ambulatory SHYAM REYNOLDS [facility] Start: 03-21-2024 End: 03-21-2024 Subsequent hospital visit by physician Shyam Reynolds MD Work Phone: [facility] Comment on above: Controlled type 2 di abetes mellitus without complication, without long-term current use of insulin (HCC); Mixed hyperlipidemia; Benign essential HTN Start: 12-12-2023 End: 12-12-2023 [facility] Start: 12-12-2023 End: 12-12-2023 Subsequent hospital visit by physician Nik Canales PTA [facility] Comment on above: Arrived Start: 12-09-2023 End: 12-09-2023 [facility] Start: 12-05-2023 End: 12-05-2023 [facility] Start: 12-02-2023 End: 12-02-2023 [facility] Start: 11-27-2023 End: 11-27-2023 [facility] Start: 11-26-2023 End: 11-26-2023 [facility] Start: 11-22-2023 End: 11-22-2023 [facility] Start: 11-19-2023 End: 11-19-2023 [facility] Start: 11-19-2023 End: 11-19-2023 Subsequent hospital visit by physician Alyssia Chauhan [facility] Comment on above: Arrived Start: 11-13-2023 End: 11-13-2023 [facility] Start: 11-12-2023 End: 11-12-2023 [facility] Start: 11-12-2023 End: 11-12-2023 Subsequent hospital visit by physician Alisha Pisano PT [facility] Comment on above: Arrived Start: 11-04-2023 End: 11-04-2023 [facility] Start: 11-01-2023 End: 11-01-2023 [facility] Start: 11-01-2023 End: 11-01-2023 Subsequent hospital visit by physician Paulette Witt FIRE BEHAVIOR ANALYST [facility] Comment on above: Arrived Start: 10-28-2023 End: 10-28-2023 ambulatory [facility] Start: 10-23-2023 End: 10-23-2023 ambulatory [facility] Start: 10-22-2023 End: 10-22-2023 ambulatory [facility] Start: 09-07-2023 End: 09-07-2023 ambulatory [facility] Start: 06-10-2023 End: 06-10-2023 ambulatory [facility] Start: 05-23-2023 End: 05-23-2023 ambulatory [facility] Start: 05-21-2023 End: 05-21-2023 ambulatory [facility] Start: 05-16-2023 End: 05-16-2023 ambulatory [facility] Start: 05-13-2023 End: 05-13-2023 ambulatory [facility] Start: 05-09-2023 End: 05-09-2023 ambulatory [facility] Start: 05-07-2023 End: 05-07-2023 ambulatory [facility] Start: 05-07-2023 End: 05-07-2023 Subsequent hospital visit by physician Marcial Chaves PT [facility] Comment on above: Arrived Start: 05-02-2023 End: 05-02-2023 ambulatory [facility] Start: 04-25-2023 End: 04-25-2023 ambulatory [facility] Start: 04-23-2023 End: 04-23-2023 ambulatory [facility] Start: 04-19-[address] [facility] Start: 04-17-2023 End: 04-17-2023 ambulatory [facility] Start: 04-17-2023 End: 04-17-2023 Subsequent hospital visit by physician Marcial Chaves PT [facility] Comment on above: Arrived Start: 04-15-2023 End: 04-15-2023 ambulatory [facility] Start: 04-15-2023 End: 04-15-2023 Subsequent hospital visit by physician Nik Canales PTA [facility] Comment on above: Arrived Start: 04-11-2023 End: 04-11-2023 ambulatory [facility] Start: 08-22-2022 End: 08-22-2022 Subsequent hospital [...] patient visit Raf Wilson MD Work Phone: [facility] ED Comment on above: COVID-19 virus infec tion (Primary Dx); Vasovagal near-syncope Start: 03-15-2022 End: 03-15-2022 Subsequent hospital visit by physician Yamini Covid19 Pat Screening Schedule [facility] Comment on above: Suspected COVID-19 v irus infection Start: 02-12-2022 End: 02-12-2022 Subsequent hospital visit by physician Yamini Ekg [facility] Comment on above: Palpitations Start: 01-20-2022 End: 01-20-2022 Subsequent hospital visit by physician Shyam Reynolds MD Work Phone: [facility] Comment on above: Controlled type 2 di abetes mellitus without complication, without long-term current use of insulin (HCC); Mixed hyperlipidemia Start: 01-01-2022 End: 01-01-2022 Emergency department patient visit Desmond Reynolds MD Work Phone: [facility] ED Comment on above: Lower abdominal pain (Primary Dx) Start: 07-24-2021 End: 07-24-2021 Subsequent hospital visit by physician Shyam Reynolds MD Work Phone: [facility] Comment on above: Mixed hyperlipidemia ; Benign essential HTN; Hair loss Start: 05-08-2021 End: 05-08-2021 Emergency department patient visit Bob Amaya MD Work Phone: [facility] ED Comment on above: Edema of left foot ( Primary Dx) Start: 04-23-2021 End: 04-23-[address] [facility] Start: 04-23-2021 End: 04-27-2021 Evaluation and management of inpatient MD RAMIREZ GRIMALDO Work Phone: [facility] Start: 04-17-2021 End: 04-17-2021 Subsequent hospital visit by physician [facility] Covid19 Pat Screening Schedule [facility] Comment on above: Arrived Start: 04-13-2021 End: 04-13-2021 Subsequent hospital visit by physician [facility] Covid19 Pat Screening Schedule [facility] Comment on above: Suspected COVID-19 v irus infection Start: 08-16-2020 End: 08-16-2020 Subsequent hospital visit by physician Shyam Reynolds [facility] Laboratory Comment on above: Mixed hyperlipidemia ; Uncontrolled type 2 diabetes mellitus with hyperglycemia (HCC) Start: 05-02-2020 End: 05-02-2020 Subsequent hospital visit by physician Shyam Reynolds [facility] Laboratory Comment on above: Controlled type 2 di abetes mellitus without complication, without long-term current use of insulin (HCC); Mixed hyperlipidemia; Benign essential HTN Start: 02-26-2018 End: 02-27-2018 Patient encounter SHYAM REYNOLDS [facility] Procedures Date Procedure Procedure Detail Performing Clinician Start: 03-21-2024 Comprehensive metabo lic panel Shyam Reynolds MD Work Phone: Start: 03-21-2024 Lipid panel Shyam Reynolds MD Work Phone: Start: 03-21-2024 Urine albumin quantitative Shyam Reynolds MD Work Phone: Start: 08-22-2022 Comprehensive metabo lic panel Shyam [...] Wilson MD Work Phone: Start: 03-15-2022 COVID-19, GEE adan MD Work Phone: Start: 01-20-2022 Comprehensive [...] Start: 05-08-2021 Dup-scan xtr veins unilateral/limited study Bob Amaya MD Work Phone: Start: 04-23-2021 CT angiography of thorax MD RAMIREZ GRIMALDO Work Phone: Start: 04-23-2021 Plain chest X-ray MD FR HERNANDEZ PRASNAL Work Phone: Start: 05-30-2020 Hemoglobin glycosyla holly [...] years Vaccine (2 of 2 - PPSV23) [facility] Start: 02-15-2027 DTaP/Tdap/Td vaccine (3 - Td or Tdap) DTaP/Tdap/Td vaccine (3 - Td or Tdap) [facility] Start: 02-15-2027 DTaP/Tdap/Td vaccine (3 - Td) DTaP/Tdap/Td vaccine (3 - Td) [place], [place] Start: 03-21-2025 GFR test (Diabetes, CKD 3-4, OR last GFR 15-59) GFR test (Diabetes, CKD 3-4, OR last GFR 15-59) [facility] Start: 03-21-2025 Lipid panel Lipids [facility] Start: 03-21-2025 Urine screening for protein Diabetic Alb to Cr ratio (uACR) test [facility] Start: 09-08-2024 Depression Screen Depression Screen [facility] Start: 09-07-2024 GFR test (Diabetes, CKD 3-4, OR last GFR 15-59) GFR test (Diabetes, CKD 3-4, OR last GFR 15-59) [facility] Start: 09-07-2024 Hemoglobin A1c measurement A1C test (Diabetic or Prediabetic) [facility] Start: 09-07-2024 Lipid panel Lipids [facility] [employer] Start: 03-23-2024 End: 03-23-2024 Patient encounter procedure 03/23/2024 2:15 PM EDT Office Visit [facility] [address] [place] [address] Shyam Reynolds MD [address] [place] [address] 6 m check up [facility] Comment on above: 6 m check up Start: 03-19-2024 Influenza vaccination B ON [facility] [facility] Start: 03-17-2024 End: 03-17-2024 Patient encounter procedure 03/17/2024 9:45 AM EDT Office Visit [facility] [address] [place] [address] Shyam Reynolds MD [address] [place] [address] 6 m check up [facility] Comment on above: 6 m check up Start: 03-01-2024 GFR test (Diabetes, CKD 3-4, OR last GFR 15-59) GFR test (Diabetes, CKD 3-4, OR last GFR 15-59) [facility] Start: 03-01-2024 Hemoglobin A1c measurement A1C test (Diabetic or Prediabetic) [facility] Start: 03-01-2024 Lipid panel Lipids [place] [employer] Start: 03-01-2024 Urine screening for protein Diabetic Alb to Cr ratio (uACR) test [facility] Start: 12-05-2023 End: 12-05-2023 Patient encounter procedure 12/05/2023 3:30 PM EDT Appointment [facility] Physical Therapy [facility] [place] [address] [place] [address] Nik Canales PTA [facility] Physical Therapy Start: 12-02-2023 End: 12-02-2023 Patient encounter procedure 12/02/2023 4:45 PM EDT Appointment [facility] [address] [place] [address] Nik Canales PTA [facility] Start: 11-27-2023 End: 11-27-2023 Patient encounter procedure 11/27/2023 4:00 PM EDT Appointment [facility] [address] [place] [address] Nik Canales PTA [facility] Start: 11-26-2023 End: 11-26-2023 Patient encounter procedure 11/26/2023 3:15 PM EDT Appointment [facility] [address] [place] [address] Mattie Mcdonald, PT [facility] Start: 11-22-2023 End: 11-22-2023 Patient encounter procedure 11/22/2023 8:45 AM EDT Appointment [facility] [address] [place] [address] Alisha Pisano, PT BCBS-$ -9 of 60 shared with OT 20.00 -RT Nahid Navarro [facility] Comment on above: BCBS-$ -9 of 60 [facility] ed with OT 20.00 -RT Nahid Navarro Start: 11-19-2023 End: 11-19-2023 Patient encounter procedure 11/19/2023 8:15 AM EDT Appointment [facility] [address] [place] [address] Alyssia Chauhan BCBS-$ -8 of 60 shared with OT 20.00 -RT Nahid Navarro [facility] Comment on above: BCBS-$ -8 of 60 [facility] ed with OT 20.00 -RT Nahid Navarro Start: 11-13-2023 End: 11-13-2023 Patient encounter procedure 11/13/2023 4:45 PM EDT Appointment [facility] [address] [place] [address] Paulette Witt, FIRE BEHAVIOR ANALYST BCBS-$ -7 of 60 shared with OT 20.00 -RT Nahid Navarro [facility] Comment on above: BCBS-$ -7 of 60 [facility] ed with OT 20.00 -RT DeysiGerman Nahid Start: 11-07-2023 End: 11-07-2023 Patient encounter procedure 11/07/2023 4:00 PM EDT Appointment [facility] Physical Therapy [address] [place] [address] Nik Canales, NAT BCBS-$ -6 of 60 shared with OT 20.00 -RT Nahid Navarro [facility] Physical Therapy Comment on above: BCBS-$ -6 of 60 [facility] ed with OT 20.00 -RT DeysiGerman Nahid Start: 11-04-2023 End: 11-04-2023 Patient encounter procedure 11/04/2023 3:45 PM EDT Appointment [facility] Physical Therapy [address] [place] [address] Alisha Pisano PT BCBS-$ -5 of 60 shared with OT 20.00 -RT Nahid Navarro [facility] Physical Therapy Comment on above: BCBS-$ -5 of 60 [facility] ed with OT 20.00 -RT DeysiTetonancy Nahid Start: 09-09-2023 End: 09-09-2023 Patient encounter procedure [facility] Comment on above: 6m check up Start: 08-23-2023 Depression Screen Depression Screen [facility] Start: 08-22-2023 GFR test (Diabetes, CKD 3-4, OR last GFR 15-59) GFR test (Diabetes, CKD 3-4, OR last GFR 15-59) [facility] Start: 08-22-2023 Lipid panel Lipids [facility] Start: 05-16-2023 End: 05-16-2023 Patient encounter procedure 05/16/2023 4:00 PM EDT Appointment [facility] Physical Therapy [address] [place] [address] Marcial Chaves, KAPIL [facility] Physical Therapy Start: 05-13-2023 End: 05-13-2023 Patient encounter procedure 05/13/2023 4:45 PM EDT Appointment [facility] Physical Therapy [address] [place] [address] Nik Canales PTA [facility] Start: 05-09-2023 End: 05-09-2023 Patient encounter procedure 05/09/2023 4:30 PM EDT Appointment [facility] Physical Therapy [address] [place] [address] Marcial Chaves PT $ BCBS-20.00 Copay-Rt PT Tendon Dysfunction-Blue Lopez, Fax [phone] [facility] Comment on above: $ BCBS-20.00 Copay-R t PT Tendon Dysfunction-Blue Lopez, Fax [phone] Start: 04-25-2023 End: 04-25-2023 Patient encounter procedure 04/25/2023 Appointment Physical Therapy Marcial Chaves PT [facility] Start: 04-23-2023 End: 04-23-2023 Patient encounter procedure 04/23/2023 Appointment Physical Therapy Nik Canales PTA [facility] Start: 04-17-2023 Subsequent hospital visit by physician 04/17/2023 Hospital Encounter Physical Therapy Marcial Chaves PT [facility] Start: 03-19-2023 Influenza vaccination Flu vaccine (# 1) [facility] Start: 02-09-2023 Depression Screen Depression Screen [facility] Start: 01-20-2023 Hemoglobin A1c measurement A1C test (Diabetic or Prediabetic) [facility] Start: 01-20-2023 Lipid panel Lipids [facility] Start: 01-20-2023 Urine screening for protein Diabetic microalbuminuria test [facility] Start: 08-23-2022 End: 08-23-2022 Patient encounter procedure 08/23/2022 Office Visit Family Medicine Shyam Reynolds MD [address] [place] [id number] [facility] Start: 07-24-2022 Creatinine measurement Creatinine mo nitoring [facility] Start: 07-24-2022 Diabetic foot examination Diabetic f oot exam [facility] Start: 07-24-2022 Hemoglobin A1c measurement A1C test (Diabetic or Prediabetic) [facility] Start: 07-24-2022 Lipid panel [facility] Start: 07-24-2022 Potassium monitoring Potassium monit [facility] Start: 2022 Screening for malign ant neoplasm of breast Breast cancer screen [facility] Start: 04-19-2022 Influenza vaccination [facility] Start: 03-19-2022 Influenza vaccination Flu vaccine (# 1) [facility] Start: 01-22-2022 End: 01-22-2022 Patient encounter procedure 01/22/2022 Office Visit Family Medicine Shyam Reynolds MD [address] [place] [address] [facility] Start: 11-24-2021 Hemoglobin A1c measurement A1C test (Diabetic or Prediabetic) [facility] Work Phone: Start: 11-24-2021 Lipid panel Lipid screen [facility] Work Phone: Start: 08-30-2021 Depression Screen Depression Screen [facility] Start: 06-13-2021 End: 06-13-2021 Patient encounter procedure 06/13/2021 Office Visit Family Shyam Strickland MD [address] [place] [address] [phone] [facility] Start: 05-02-2021 Creatinine measurement Creatinine mo [place], [place] Start: 05-02-2021 Diabetic microalbumi dakota test Diabetic microalbuminuria test [facility] Start: 05-02-2021 HbA1c (Bld) [Mass fraction] A1C test (Diabetic or Prediabetic) [place], [place] Start: 05-02-2021 Lipid panel Lipid screen [place], [place] Start: 05-02-2021 Potassium monitoring Potassium monit [place], [place] Start: 05-02-2021 Urine screening for protein [facility] Start: 04-19-2021 Influenza vaccination Flu vaccine (# 1) [facility] Start: 10-05-2020 Creatinine measurement Creatinine mo [place] Start: 10-05-2020 HbA1c (Bld) [Mass fraction] A1C test (Diabetic or Prediabetic) [place], [place] Start: 10-05-2020 Lipid panel Lipid screen [place], [place] Start: 10-05-2020 Potassium monitoring Potassium monit oring [place], [place] Start: 09-07-2020 Diabetic retinal exam Diabetic retin al exam [facility] Start: 09-07-2020 Glaucoma screening Diabetic retinal exam [facility] Start: 08-30-2020 End: 08-30-2020 Office Visit 08/30/2020 Office Visit Family Shyam Strickland MD [address] [place] [address] [phone] [facility] Start: 05-03-2020 End: 05-03-2020 Office Visit 05/03/2020 Office Visit Shyam Garcia MD [address] [place] [address] [phone] [facility] Start: 04-19-2020 Influenza vaccination Flu vaccine (# 1) [place], [place] Start: 07-20-2019 Diabetic microalbumi dakota test Diabetic microalbuminuria test [place], [place] Start: 02-15-2018 Diabetic foot examination Diabetic f oot exam [place] Start: 02-15-2018 Pneumococcal 0-64 ye ars Vaccine (2 - PCV) Pneumococcal 0-64 years Vaccine (2 - PCV) [facility] Start: 02-15-2018 Pneumococcal 0-64 ye ars Vaccine (2 of 2 - PCV) Pneumococcal 0-64 years Vaccine (2 of 2 - PCV) [facility] Start: 2001 Hepatitis B vaccine (1 of 3 - Risk 3-dose series) Hepatitis B vaccine (1 of 3 - Risk 3-dose series) [facility] Start: 2000 Hepatitis C screening Hepatitis C sc reen [facility] Start: 1997 HIV screening HIV screen [facility] Start: 1994 COVID-19 Vaccine (1) COVID-19 Vaccin e (1) [facility] Start: 1987 COVID-19 Vaccine (1) COVID-19 Vaccin e (1) [facility] Start: 1983 Varicella vaccine (1 of 2 - 2-dose childhood series) Varicella vaccine (1 of 2 - 2-dose childhood series) [facility] [employer] Start: 1982 COVID-19 Vaccine (#1) COVID-19 Vacci ne (#1) [facility] [employer] Start: 1982 Hepatitis B vaccine (1 of 3 - 3-dose series) Hepatitis B vaccine (1 of 3 - 3-dose series) [facility] [employer] Start: 1982 Hepatitis C screening Hepatitis C sc reen [facility] [employer] End: 02-12-2022 Cardiac event monitor Cardiac event monitor Cardiac Services Routine Palpitations 1 Occurrences starting 02/12/2022 until 02/12/2022 [facility] [employer] Work Phone: Comment on above: 1 Occurrences starti ng 02/12/2022 until 02/12/2022 End: 04-13-2021 COVID-19 COVID-19 Lab Routine Suspected COVID-19 virus infection 1 Occurrences starting 04/13/2021 until 04/13/2021 [facility] [employer] Work Phone: Comment on above: 1 Occurrences starti ng 04/13/2021 until 04/13/2021 COVID-19 [employer] Phone: End: 04-17-2021 [employer] Phone: Comment on above: One Time for 1 Occur rences starting 04/17/2021 until 04/17/2021 Once for 1 Occurrenc es starting 04/17/2021 until 04/17/2021 EKG 12 Lead EKG 12 Lead ECG STAT 04/14/2022 8:51 PM EDT [facility] [employer] Phone: End: 05-02-2020 HbA1c (Bld) [Mass fraction] Hemoglobin A1C Lab Routine Controlled type 2 diabetes mellitus without complication, without long-term current use of insulin (HCC) 1 Occurrences starting 05/02/2020 until 05/02/2020 [facility] [employer] [place], [place] Comment on above: 1 Occurrences starti ng 05/02/2020 until 05/02/2020 HbA1c (Bld) [Mass fraction] Hemoglobin A1C Lab Routine Controlled type 2 diabetes mellitus without complication, without long-term current use of insulin (HCC) 05/02/2020 6:57 AM EDT [facility] [place] End: 01-20-2022 Hemoglobin A1c/Hemoglobin.total in Blood [employer] Work Phone: Comment on above: 1 Occurrences starti ng 01/20/2022 until 01/20/2022 End: 03-21-2024 Hemoglobin A1c/Hemoglobin.total in Blood [employer] Comment on above: 1 Occurrences starti ng 03/21/2024 until 03/21/2024 Lactate [Moles/volum e] in Serum or Plasma [facility] Work Phone: End: 01-20-2022 Microalbumin / Creatinine Urine Ratio Microalbumin / Creatinine Urine Ratio Lab Routine Controlled type 2 diabetes mellitus without complication, without long-term current use of insulin ([facility]) 1 Occurrences starting 01/20/2022 until 01/20/2022 [employer] Work Phone: Comment on above: 1 Occurrences starti ng 01/20/2022 until 01/20/2022 End: 03-21-2024 Microalbumin / Creatinine Urine Ratio Microalbumin / Creatinine Urine Ratio Lab Routine Controlled type 2 diabetes mellitus without complication, without long-term current use of insulin ([facility]) 1 Occurrences starting 03/21/2024 until 03/21/2024 [employer] Comment on above: 1 Occurrences starti ng 03/21/2024 until 03/21/2024 Patient Education COVID-19 (Key navirus Disease 2019) (DC) [facility] Work Phone: End: 03-21-2024 Patient Fasting? [employer] Comment on above: Once for 1 Occurrenc es starting 03/21/2024 until 03/21/2024 Patient referral [facility] Work Phone: Immunizations Immunization Date Immunization Notes Care Provider Sharon boucher 02-15-2017 pneumococcal polysac charide vaccine, 23 valent [facility] [place] 02-15-2017 tetanus toxoid, redu zulma diphtheria toxoid, and acellular pertussis vaccine, adsorbed Shyam [facility] 04-03-2010 tetanus toxoid, redu zulma diphtheria toxoid, and acellular pertussis vaccine, adsorbed [facility] Schedule [facility] Work Phone: Payers Date Payer Category Payer Unknown [id number] 2015 Unknown [id number] 1982 Unknown [id number] 2.16.8 [id number] 1982 Unknown [id number] 2.16.8 40.1.936342.3.579.2.174 1982 Unknown [id number] 2.16.8 40.1.477720.3.579.2.174 1982 Unknown [id number] 2.16.8 40.1.945743.3.579.2.174 1982 Unknown [id number] 2.16.8 40.1.924396.3.579.2.174 1982 Unknown [id number] 2.16.8 40.1.545994.3.579.2.174 1982 Unknown [id number] 2.16.8 40.1.368510.3.579.2.174 1982 Unknown [id number] 2.16.8 40.1.892336.3.579.2.174 1982 Unknown [id number] 2.16.8 40.1.592902.3.579.2.174 1982 Unknown [id number] 2.16.8 40.1.278913.3.579.2.174 1982 Unknown [id number] 2.16.8 40.1.836462.3.579.2.174 1982 Unknown [id number] 2.16.8 40.1.050853.3.579.2.174 1982 Unknown [id number] 2.16.8 40.1.459651.3.579.2.174 1982 Unknown [id number] 2.16.8 40.1.876929.3.579.2.174 1982 Unknown [id number] 2.16.8 40.1.936007.3.579.2.174 1982 Unknown [id number] 2.16.8 40.1.133210.3.579.2.174 1982 Unknown [id number] 2.16.8 40.1.040170.3.579.2.174 1982 Unknown [id number] 2.16.8 40.1.774207.3.579.2.174 1982 Unknown [id number] 2.16.8 40.1.253400.3.579.2.174 1982 Unknown [id number] 2.16.8 40.1.828144.3.579.2.174 1982 Unknown [id number] 2.16.8 40.1.503267.3.579.2.174 1982 Unknown [id number] 2.16.8 40.1.573170.3.579.2.174 1982 Unknown [id number] 2.16.8 40.1.444726.3.579.2.174 1982 Unknown [id number] 2.16.8 40.1.431163.3.579.2.174 1982 Unknown [id number] 2.16.8 [id number] 1980 Unknown [id number] 2.16.8 [id number] 1980 Unknown [id number] 2.16.8 [id number] 1980 Unknown [id number] 2.16.8 [id number] 1980 Unknown [id number] 2.16.8 [id number] 1980 Unknown [id number] 2.16.8 [id number] 1980 Unknown [id number] [id number] Social History Date Type Detail Facility Start: 05-17-2020 End: 04-14-2022 Tobacco smoking status NHIS Never smoker [place] Start: 05-17-2020 End: 04-14-2022 Tobacco use and exposure Never used [place] Start: 05-17-2020 End: 02-09-2022 Alcohol intake Current drinker of alcohol (finding) [place] Start: 10-22-2019 History SDOH Financial 4 [place] Start: 10-22-2019 End: 02-07-2023 History SDOH Food Worry 1 [place] Start: 10-22-2019 End: 02-07-2023 History SDOH Transport Med 2 [place] Start: 08-06-2013 Alcohol Comment Rarely, maybe once a year [place], [place] Start: 1980 Sex Assigned At Not on file [place], [place] Start: 02-24-2021 End: 02-07-2023 History SDOH Financial 5 [facility] Work Phone: Start: 04-23-[address] [facility] Work Phone: Start: 04-23-2021 With Family [facility] Work Phone: Start: 04-23-[address] [facility] Work Phone: Start: 04-23-[address] [facility] Work Phone: Start: 04-23-[address] Work Phone: Start: 1980 Sex Assigned At Female [facility] Work Phone: Start: 12-22-2021 End: 04-14-2022 Exposure to SARS-CoV-2 (event) Not sure [facility] [employer] Start: 04-14-2022 End: 09-09-2023 Alcohol intake Ex-drinker (finding) [facility] Work Phone: Start: 02-07-2023 End: 03-04-2023 History of Social function [employer] Start: 02-07-2023 End: 03-04-2023 Tobacco use panel [facility] How hard is it for y ou to pay for the very basics like food, housing, medical care, and heating Not hard at all [facility] (I/We) worried wheth er (my/our) food would run out before (I/we) got money to buy more. Never true [employer] At any time in the p ast 12 months, were you homeless or living in snf [including now]? No [employer] Medical Equipment Procedure Code Equipment Code Equipment Origin al Text Equipment Identifier Dates Carmen monitor wi th test strips and lancets. Test BS daily and prn. [id number] Start: 08-04-2013 Goals Date Patient Goal Desired Activity /State Functional Status Date Assessment Result Facility 04-27-2021 Functional status Ambulates [facility] Work Phone: 04-23-2021 Functional status Bathing Ability Indepen dent [facility] Work Phone: Mental Status Date Assessment Result Facility 04-27-2021 Cognitive function Appropriate;Cooperativ e [facility] Work Phone: 04-23-2021 Cognitive function No Impairment [facility] Work Phone: Clinical Notes 04-25-2021 to 11-19-2023 Alyssia Chauhan - 11/19/2023 8:15 AM Alisha Mcintosh, PT - 11/12/2023 3:45 PM Joce Chaves PT - 04/17/2023 3:30 PM Claire Naranjo RN - 04/14/2022 9:06 PM EDT Note Date & Type Note Facility 11-19-2023 History of Present illness Narrative Images from the original note were not included. [facility] Daily Note Date: 11/19/2023 Patient Name: Delilah Mancuso : 1980 (43 y.o.) Referring Provider (secondary): Dr. Nahid Walker Diagnosis: S/P R Flatfoot correction, R ankle contracture, R ankle stiffness, Valgus defomity Treatment Diagnosis: Gait ataxia due to R ankle pain s/p Ankle sx Onset Date: 06/27/23 PT Insurance Information: 60v /yr shared with OT Total # of Visits Approved: 16 Per Physician Order Total # of Visits to Date: 8 No Show: 0 Canceled Appointment: 0 Pre-Treatment Pain: 09/28 Assessment Assessment: Pain today 09/28. Went camping over the weekend with sig increased pain -03/28 with difficulty walking. [place] like I was walking barefoot on gravel . Performed ex/NMR and manual therapy as outlined. No change in pain after session. Will cont per plan. Plan Continue with current plan of care Exercises/Modalities/Manual: See DocFlow Sheet Education: cont hep Goals (Total # of Visits to Date: 8) Short Term Goals Time Frame for Short Term Goals: 8 visits Short Term Goal 1: Pt to report independence and compliance with HEP for Ankle ROM and strength/proprioception.-MET Short Term Goal 2: Pt to have PROM DF 15deg to improve step length during amb.-MET Outside Machinist Supervisor Goals Time Frame for Correction Goals : 16 visits Correction Goal 1: Pt to improve LEFS from 15/80 to >40/80 to improve ADL domenic Outside Machinist Supervisor Goal 2: Pt to have 4/5 Eversion strength to improve walking domenic. Outside Machinist Supervisor Goal 3: Pt to maintain SLS on aeromat 10sec to improve outdoor amb safety Correction Goal 4: Pt to reciprocally manage stairs with 1 HR without pain/diffiuculty to improve community access. Post Treatment Pain: 09/28 Time In: 0815 Time Out : 0858 Timed Code Treatment Minutes: 43 Minutes Total Treatment Time: 43 Minutes Alyssia Chauhan FIRE BEHAVIOR ANALYST Date: 11/19/2023 documented in this encounter [facility] 11-12-2023 History of Present illness Narrative Images from the original note were not included. [facility] Daily Note Date: 11/12/2023 Patient Name: Delilah Mancuso : 1980 (43 y.o.) Referring Provider (secondary): Dr. Nahid Walker Diagnosis: S/P R Flatfoot correction, R ankle contracture, R ankle stiffness, Valgus defomity Treatment Diagnosis: Gait ataxia due to R ankle pain s/p Ankle sx Onset Date: 06/27/23 PT Insurance Information: 60v /yr shared with OT Total # of Visits Approved: 16 Per Physician Order Total # of Visits to Date: 6 No Show: 0 Canceled Appointment: 0 Pre-Treatment Pain: 11/26 Assessment Assessment: Progressed ther ex this date, note difficulty with lowering on R LE. Progressed shuttle resistance. Pt unable to domenic side/side on aeromat due to pain. Provided tissue distraction and gentle forefoot mobility with pain decreased post session. PROM DF=15deg PROM Great toe Ext =70deg Plan Continue with current plan of care Exercises/Modalities/Manual: See DocFlow Sheet Education: Progression of there ex this date Goals (Total # of Visits to Date: 6) Short Term Goals Time Frame for Short Term Goals: 8 visits Short Term Goal 1: Pt to report independence and compliance with HEP for Ankle ROM and strength/proprioception.-MET Short Term Goal 2: Pt to have PROM DF 15deg to improve step length during amb.-MET Correction Goals Time Frame for Correction Goals : 16 visits Outside Machinist Supervisor Goal 1: Pt to improve LEFS from 15/80 to >40/80 to improve ADL domenic Outside Machinist Supervisor Goal 2: Pt to have 4/5 Eversion strength to improve walking domenic. Outside Machinist Supervisor Goal 3: Pt to maintain SLS on aeromat 10sec to improve outdoor amb safety Correction Goal 4: Pt to reciprocally manage stairs with 1 HR without pain/diffiuculty to improve community access. Post Treatment Pain: 210 Time In: 1558 Time Out: 1640 Timed Code Treatment Minutes: 42 Minutes Total Treatment Time: 42 Minutes Alisha Pisano, PT Date: 11/12/2023 documented in this encounter [facility] 04-17-2023 History of Present illness Narrative Images from the original note were not included. [facility] Daily Note Date: 04/17/2023 Patient Name: Delilah Mancuso : 1980 (42 y.o.) Referring Provider (secondary): Nahid Walker Diagnosis: Right posterior tibialis dysfunction, right posterior tib tear Treatment Diagnosis: Right ankle pain Onset Date: 03/12/23 PT Insurance Information: BS Total # of Visits Approved: 8 Per Physician Order Total # of Visits to Date: 3 Plan of Care/Certification Expiration Date: 05/09/23 Pre-Treatment Pain: 2 Subjective: 1530: Pain remains about the same. [...] compliance with HEP to optimize therapy progress Outside Machinist Supervisor Goals Time Frame for Correction Goals : 8 visits Correction Goal 1: Patient will demonstrate right ankle MMT to 5/5 in all planes to allow improved ambulation Correction Goal 2: Patient will demonstrate SLS on right x30 with low pain level Correction Goal 3: Patient will improve LEFS score from 27/80 to 60/80 to demonstrate functional improvement Post Treatment Pain: 10/26 Time In: 1530 Time Out : 1612 Timed Code Treatment Minutes: 28 Minutes Total Treatment Time: 42 Minutes Marcial Chaves, PT Date: 04/17/2023 documented in this encounter [facility] 04-14-2022 History of Present illness Narrative Patient contacted per patient request. Saud will be coming to the ER t osee patient at her request. Patient states that she thinks she is going to pass out. Patient placed in wheel chair and moved to room 8. EKG ordered. VSS. Patient visibly pale in the face. Patient eyes open and looking at telegraphic typewriter mechanic entire time and following all commands. documented in this encounter [employer] Phone: 02-12-2022 History of Present illness Narrative The patient was educated on the use of an event monitor. The patient's comprehension was high. The patient was able to verbalize recall. The patient was instructed on how and when to return the monitor. documented in this encounter [employer] Phone: 06-16-2021 Hospital Discharge instructions Additional Instructions [...] STOP. Call an acute care nurse at [phone] for any questions regarding these instructions. Your health information can be accessed through an application such as those used on a smartphone. Depending on the chosen application, you may be able to access information such as your medications, allergies, or lab results. If you are interested in using an application, please call the [employer] at [phone] We have appreciated the opportunity to be your healthcare provider. We sincerely hope that we have met your expectations. We strive for excellence. [employer] surveys are mailed to our customers after service is provided and we use your input from the completed and returned surveys to improve our care delivery. We encourage you to submit this feedback so that we may continue to be your hospital of choice. Thank you. Name of RN preparing this discharge: Nicolette Christie RN. [facility] Work Phone: 05-08-2021 Hospital Discharge instructions [...] STOP. Call an acute care nurse at [phone] for any questions regarding these instructions. Your health information can be accessed through an application such as those used on a smartphone. Depending on the chosen application, you may be able to access information such as your medications, allergies, or lab results. If you are interested in using an application, please call the [employer] at [phone] We have appreciated the opportunity to be your healthcare provider. We sincerely hope that we have met your expectations. We strive for excellence. [employer] surveys are mailed to our customers after service is provided and we use your input from the completed and returned surveys to improve our care delivery. We encourage you to submit this feedback so that we may continue to be your hospital of choice. Thank you. Name of RN preparing this discharge: Nicolette Christie RN. [facility] Work Phone: 2021 Hospital Discharge instructions [...] STOP. Call an acute care nurse at [phone] for any questions regarding these instructions. Your health information can be accessed through an application such as those used on a smartphone. Depending on the chosen application, you may be able to access information such as your medications, allergies, or lab results. If you are interested in using an application, please call the [employer] Help[employer] at [phone] We have appreciated the opportunity to be your healthcare provider. We sincerely hope that we have met your expectations. We strive for excellence. [employer] surveys are mailed to our customers after service is provided and we use your input from the completed and returned surveys to improve our care delivery. We encourage you to submit this feedback so that we may continue to be your hospital of choice. Thank you. Name of RN preparing this discharge: Nicolette Christie RN. [facility] Work Phone: 04-27-2021 Note [facility] Patient: DELILAH MANCUSO DISCHARGE SUMMARY Admit Date: 04/23/21 /Age: 09 1980 Attending Physician: Júnior Valadez MD Med Rec #: [id number] Date: 04/27/21 Time of Encounter: 12:03 Provisional [...] reports loss of taste. He was taking [id number]-[id number] medications for cough and fever but symptoms [...] encounter:: 35 minutes Authenticated on: 04/27/21 1205 [id number] [id number] CC: Júnior Valadez MD [facility] 04-27-2021 Hospital Discharge instructions Additional Instructions [...] STOP. Call an acute care nurse at [phone] for any questions regarding these instructions. Your health information can be accessed through an application such as those used on a smartphone. Depending on the chosen application, you may be able to access information such as your medications, allergies, or lab results. If you are interested in using an application, please call the [employer] Help[employer]k at [phone] We have appreciated the opportunity to be your healthcare provider. We sincerely hope that we have met your expectations. We strive for excellence. [employer] surveys are mailed to our customers after service is provided and we use your input from the completed and returned surveys to improve our care delivery. We encourage you to submit this feedback so that we may continue to be your hospital of choice. Thank you. Name of RN preparing this discharge: Nicolette Christie RN. [facility] Work Phone: 04-26-2021 Note [facility] Patient: DELILAH MANCUSO PHYSICIAN PROGRESS NOTE Admit Date: 04/23/21 /Age: 09 1980 Attending Physician: Júnior Valadez MD Dictating Physician: Júnior Valadez MD Med Rec #: [id number] Date: 04/26/21 Time of Encounter: 10:42 Interval [...] 07/22/21 15:09 Albuterol Sulfate 2.5 mg/ (Ipratropium [place] 0.5 mg) 0 mg IH RESP PRN [...] 100 mls @ 200 mls/hr IV DAILY [facility] Stop: 04/27/21 09:29 Last Admin: 04/26/21 09:49 Dose: 200 mls/hr Documented by: Levofloxacin/Dextrose (Levaquin Iv) 500 mg in 100 mls @ 100 mls/hr IV DAILY [facility] Stop: 05/04/21 09:59 Last Admin: 04/26/21 09:49 Dose: Not Given Documented by: Insulin Human Lispro (Insulin Lispro (Humalog) 1 Unit/0.01 Ml Inj) 0 unit SUBCUT TIDWM [facility]; Protocol Stop: 07/22/21 16:59 Last Admin: 04/26/21 08:00 Dose: 2 units Documented by: Lisinopril (Lisinopril (Zestril) 20 Mg Tablet) 20 mg PO DAILY [facility] Stop: 07/23/21 08:59 Last Admin: 04/26/21 08:13 Dose: 20 mg Documented by: Bisoprolol-Hctz 2.5- (6.25 Mg) 1 tab PO DAILY [facility] Stop: 07/23/21 08:59 Last Admin: 04/26/21 08:16 Dose: 1 tab Documented by: Non-Formulary Medication (Empagliflozin [Jardiance]) 10 mg PO DAILY [facility] Stop: 07/23/21 08:59 Last Admin: 04/26/21 08:16 [...] home occasions Morbid obesity, BMI 40 Meet [facility] Midnight Rule Requirement: Yes Hospital Certify Text: {This admission will require a hospital stay exceeding two midnights for the care and treatment of the following condition} Authenticated on: 04/26/21 104 [id number] [phone] CC: [facility] 04-25-2021 Note [facility] Patient: DELILAH MANCUSO PHYSICIAN PROGRESS NOTE Admit Date: 04/23/21 /Age: 09 1980 Attending Physician: Júnior Valadez MD Dictating Physician: Júnior Valadez MD Med Rec #: [id number] Date: 04/25/21 Time of Encounter: 11:34 Interval [...] 07/22/21 15:09 Albuterol Sulfate 2.5 mg/ (Ipratropium [place] 0.5 mg) 0 mg IH RESP PRN [...] 20 Mg Tablet) 20 mg PO DAILY [facility] Stop: 07/23/21 08:59 Last Admin: 04/25/21 08:21 Dose: 20 mg Documented by: Bisoprolol-Hctz 2.5- (6.25 Mg) 1 tab PO DAILY [facility] Stop: 07/23/21 08:59 Last Admin: 04/25/21 08:21 Dose: 1 tab Documented by: Non-Formulary Medication (Empagliflozin [Jardiance]) 10 mg PO DAILY [facility] Stop: 07/23/21 08:59 Last Admin: 04/25/21 08:21 [...] home occasions Morbid obesity, BMI 40 Meet [facility] Midnight Rule Requirement: Yes Hospital Certify Text: {This admission will require a hospital stay exceeding two midnights for the care and treatment of the following condition} Authenticated on: 04/25/21 1135 [id number] CC: [facility] 04-25-2021 Note [facility] Patient: DELILAH MANCUSO HISTORY AND PHYSICAL Admit Date: 04/23/21 /Age: 09 1980 Attending Physician: Júnior Valadez MD Med Rec #: [id number] Date: 04/24/21 Time of Encounter: 10:30 Chief [...] reports loss of taste. He was taking kgvm-hpf-fuebyrp medications for cough and fever but symptoms [...] home occasions Morbid obesity, BMI 40 Meet [facility] Midnight Rule Requirement: Yes Hospital Certify Text: {This admission will require a hospital stay exceeding two midnights for the care and treatment of the following condition} - VTE Medications Was VTE prophylaxis medication prescribed?: Yes - VTE Device Was a VTE prophylaxis device ordered?: Yes Authenticated on: 04/25/21920 [id number] [phone] CC: Júnior Valadez MD [facility] Chief complaint+Reason for visit Narrative Reason for Visit Pneumonia due to COVID-19 virus [facility] Work Phone: Evaluation note* Diagnosis Suspected COVID-19 virus infection documented in this encounter [facility] Work Phone: evaluation note* Diagnosis Onset Date Resolution Status Pneumonia due to COVID-19 virus acute [facility] Work Phone: Evaluation note* Diagnosis Edema of left foot- Primary documented in this encounter [employer] Phone: evalrkvzdg note* Diagnosis Mixed hyperlipidemia Benign essential HTN Essential hypertension, benign Hair loss Alopecia, unspecified documented in this encounter [employer] Phone: evaluation note* Diagnosis Lower abdominal pain- Primary Abdominal pain, other specified site documented in this encounter [employer] Phone: evaluation note* Diagnosis Controlled type 2 diabetes mellitus without complication, without long-term current use of insulin (HCC) Mixed hyperlipidemia documented in this encounter [employer] Phone: evaluation note* Diagnosis Palpitations documented in this encounter [employer] Phone: evaluation note* Diagnosis Suspected COVID-19 virus infection documented in this encounter [employer] Phone: evaluation note* Diagnosis COVID-19 virus infection- Primary Vasovagal near-syncope Syncope and collapse documented in this encounter [employer] Phone: evaluation note* Diagnosis Uncontrolled type 2 diabetes mellitus with hyperglycemia (HCC) Mixed hyperlipidemia Encounter for hepatitis C screening test for low risk patient Screening for human immunodeficiency virus without presence of risk factors Special screening examination for other specified viral diseases Benign essential HTN Essential hypertension, benign documented in this encounter [employer] Phone: evaluation note* Diagnosis Controlled type 2 diabetes mellitus without complication, without long-term current use of insulin (HCC) Mixed hyperlipidemia Benign essential HTN Essential hypertension, benign documented in this encounter [facility] Discharge instructions* Attachments The following attachments cannot be sent through Care Everywhere. * Edema: Leg and Ankle (Macedonian) documented in [facility] Phone: Hospital Discharge instructions* Attachments The following attachments cannot be sent through Care Everywhere. * Abdominal [facility] (Macedonian) [facility]* Attachments The following attachments cannot be sent through Care Everywhere. 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 ACP-Advance Directive 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 Advance Directive Response Recorded Date/ Time State DNR No April 23 11:49am Living Will No April 23 4:53pm Advanced Directives Not interested April 10:22am Advance Directive Response Recorded Date/ Time Advanced Directives Not interested April 10:22am Living Will No April 23 4:53pm State DNR No April 23 11:49am Documents on File Type Date Recorded 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 [address] Referral ID Status Reason Start Date Expiration Date Visits Re quested Visits Authorized [id number] Open 02/16/2022 02/16/2023 1 1 Additional Source Comments INFORMATION SOURCE (unrecogn ized section and content) DATE CREATED AUTHOR 02/27/2018 Nicole Wilson [facility] DATE CREATED AUTHOR AUTHOR'S ORGANIZ ATION 01/25/2020 [facility] DATE CREATED AUTHOR AUTHOR'S ORGANIZ ATION 04/24/2021 [facility] DATE CREATED AUTHOR AUTHOR'S ORGANIZ ATION 06/17/2021 [facility] DATE CREATED AUTHOR AUTHOR'S ORGANIZ ATION 03/23/2024 [place] Reason for Visit (unrecogniz ed section and content) Reason Comments Other pt is c/o of left an kle may have a blood clot Reason Comments Abdominal Pain Pt C/O abdominal lisbeth n x 2 days. Pt states that pain started in RLQ and now is in both lower quadrants. Specialty Diagnoses / Procedures Referred By Contac t Referred To Contact Diagnoses Palpitations Procedures Cardiac event monitor Shyam Reynolds MD [address] 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 [email or web address] provides no warranty or guarantee of the accuracy or completeness of information in this document.
== END 2024-05-20 13:57 | disposition home or self-care (01) ==
LOC: EC 13:56
PROVIDERS: Visit Provider Podiatrist Foot & Ankle Surgery
DX: M79.671 Pain in right foot (principal)
CPT/HCPCS: 73630

== ENCOUNTER 2024-08-20 15:10 | Outpatient (OUT) | payer BC, SELFPAY ==
--- NOTE | 2024-08-20 | XR_ITS ---
The [address] [address] Patient Name: DELILAH MANCUSO MRN: [id number] date: 1980 Sex: F Assigned Patient Location: Current Patient Location: Accession/Order Number: [id number] Exam Date: 08/20/2024 15:18 Report Date: 08/21/2024 07:30 At the request of: STARLA DIXON Procedure: XR foot RT min 3V PROCEDURE: XR foot RT min 3V COMPARISON: 05/20/2024 HISTORY: RIGHT FOOT PAIN FINDINGS: BONES:Stable triple arthrodesis with wedged spacer is in the medial cuneiform and anterior calcaneus. The bony bridging across the posterior calcaneal osteotomy. Mild to moderate degenerative changes with joint space narrowing. Hallux valgus. SOFT TISSUES:Negative. No visible soft tissue swelling. EFFUSION:None visible. OTHER: Negative. XR/XR foot RT min 3V IMPRESSION: Stable triple arthrodesis and degenerative change Electronically authenticated by: KARTIK LOPEZ Date: 08/21/2024 07:30
== END 2024-08-20 15:11 | disposition home or self-care (01) ==
LOC: EC 15:10
PROVIDERS: Visit Provider Physician Assistant
DX: M79.671 Pain in right foot (principal); Z98.1 Arthrodesis status; Z51.89 Encounter for other specified aftercare
CPT/HCPCS: 73630

== ENCOUNTER 2024-09-09 12:04 | Outpatient (OUT) | payer BC, SELFPAY ==
--- NOTE | 2024-09-09 12:07 | MR_ITS ---
[place] [id number] Patient Name: DELILAH MANCUSO MRN: [id number] date: 1980 Sex: F Assigned Patient Location: MRI Current Patient Location: MRI Accession/Order Number: [id number] Exam Date: 09/09/2024 12:20 Report Date: 09/09/2024 15:36 At the request of: STARLA DIXNO Procedure: MR ankle RT wo con EXAM: MR ankle RT wo con HISTORY: right peroneal tendon tear COMPARISON: 08/20/2024. TECHNIQUE: MRI images obtained with multiple sequences. MRI of the right ankle without contrast. Sequences obtained by standard department protocol. FINDINGS: Small ankle joint effusion. Metallic surgical spacer at the medial cuneiform bone. Achilles tendon is intact. Plantar fascia is intact. Healed osteotomy defect of the calcaneus. No significant degeneration of the ankle joint or mid foot. Peroneal tendons are intact. Posterior tibial tendinopathy. Other flexor tendons are intact. Extensor tendons are intact. Anterior and posterior syndesmotic ligaments are intact. Anterior talofibular, posterior talofibular, and calcaneofibular ligaments are intact. Deltoid ligament fibers are intact. MR/MR ankle RT wo con IMPRESSION: 1. Peroneal tendons are intact. 2. No acute ligamentous abnormality. 3. Achilles tendon and plantar fascia are intact. No acute fractures. 4. Other findings as described. Electronically authenticated by: KHALIDA BERNARD Date: 09/09/2024 15:36
== END 2024-09-09 12:05 | disposition home or self-care (01) ==
LOC: MRI 12:04
PROVIDERS: Visit Provider Physician Assistant
DX: S86.311A Strain of muscle(s) and tendon(s) of peroneal muscle group at lower leg level, right leg, initial encounter (principal); M25.471 Effusion, right ankle
CPT/HCPCS: 73721